=== PATIENT | male | born 1965 | race Caucasian/White ===

== ENCOUNTER 2018-01-11 12:32 | Emergency (ER) | payer MEDICARE, OTHER ==
[2018-01-11 12:40] VITALS: TEMP 98.1
[2018-01-11] MEDS ORDERED: KETOROLAC 30 MG/ML 1 ML VIAL IVP STA (13:21)
[2018-01-11] MEDS ORDERED: ORPHENADRINE 30 MG/ML 2 ML VIAL IVP STA (13:21)
--- NOTE | 2018-01-11 13:30 | ED ---
Back Pain HPI - General Chief Complaint: Back Pain/Injury Stated Complaint: back pain Time Seen by Provider: 01/11/18 12:56 Source: patient, EMS, RN notes reviewed Mode of arrival: EMS Limitations: no limitations - History of Present Illness Initial Comments: This is a 52-year-old male presents emergency Department chief complaint of low back pain. Patient states she's been having increasing pain last couple weeks states today's become more unbearable where he feels that it's hard to ambulate than usual. He states that he has balm he has currently visiting physicians. Patient states that he has to use a cane to walk on a normal day. 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 Patient states that he's had no bowel bladder incontinence or retention. Denies any saddle anesthesia. He does complain of some pain increased on his left leg and right upper thigh region. Patient admits that he's had thoracic and lumbar surgery he states it is occasionally thoracic region cysts removed from his spinal canal approximately 2 years ago. Patient denies any dysuria, nausea, vomiting, abdominal pain. - Related Data Home Medications Medication Instructions Recorded Confirmed Cyclobenzaprine [Flexeril] 10 mg PO BID 07/24/15 01/11/18 Gabapentin 800 mg PO QID 07/24/15 01/11/18 Ibuprofen [Motrin] 800 mg PO TID 07/24/15 01/11/18 Omeprazole [PriLOSEC] 20 mg PO HS 07/24/15 01/11/18 Potassium Chloride [Klor-Con 10] 10 meq PO DAILY 07/24/15 01/11/18 Simvastatin [Zocor] 40 mg PO PC-SUPPER 07/24/15 01/11/18 metFORMIN HCL 1,000 mg PO BID 07/24/15 01/11/18 Aspirin [Adult Low Dose Aspirin EC] 81 mg PO DAILY 07/31/15 01/11/18 Metoprolol Tartrate [Lopressor] 50 mg PO QID 03/18/16 01/11/18 rOPINIRole HCL [Requip] 2 mg PO TID 03/18/16 01/11/18 Albuterol Inhaler [Ventolin Hfa 2 puff INHALATION RT-Q4H PRN 01/11/18 01/11/18 Inhaler] Beclomethasone Dipropionate [Qvar 2 puff INHALATION RT-BID 01/11/18 01/11/18 80 mcg] Cholecalciferol [Vitamin D3] 5,000 unit PO DAILY 01/11/18 01/11/18 Desloratadine/Pseudoephedrine 1 tab PO BID 01/11/18 01/11/18 [Clarinex-D 12 Hour Tablet] Lisinopril [Zestril] 5 mg PO DAILY 01/11/18 01/11/18 Pregabalin [Lyrica] 200 mg PO TID 01/11/18 01/11/18 sitaGLIPtin [Januvia] 100 mg PO DAILY 01/11/18 01/11/18 Previous Rx's Medication Instructions Recorded Hydrocodone/Acetaminophen [[place] 1 tab PO Q6HR PRN #12 tab 01/11/18 5-325] Allergies Allergy/AdvReac Type Severity Reaction Status Date / Time No Known Allergies Allergy Verified 01/11/18 13:10 Review of Systems ROS Statement: Those systems with pertinent positive or pertinent negative responses have been documented in the HPI. ROS Other: All systems not noted in ROS Statement are negative. Past Medical History Past Medical History: Coronary Artery Disease (CAD), COPD, Diabetes Mellitus, GERD/Reflux, Hyperlipidemia, Hypertension, Myocardial Infarction (PR), Osteoarthritis (OA), Seizure Disorder, Sleep Apnea/CPAP/BIPAP Additional Past Medical History / Comment(s): LAST SEIZURE 2009lumbar radiculopathy neuropathy Last Myocardial Infarction Date:: 10/22/10 History of Any Multi-Drug Resistant Organisms: None Reported Past Surgical History: Back Surgery, Cholecystectomy, Heart Catheterization With Stent Additional Past Surgical History / Comment(s): LAMINECTOMY ,fusion,spinal stimulator LEFT SHOULDER sx, 07-31-15 revison thoracic laminectomy t10-t11/ removal of neuro stimulator and wires removed Past Anesthesia/Blood Transfusion Reactions: No Reported Reaction Date of Last Stent Placement:: 10/22/10 Past Psychological History: Depression Smoking Status: Current every day smoker Past Alcohol Use History: None Reported, Abuse Past Drug Use History: Marijuana - Past Family History Brother(s) Family Medical History: Deep Vein Thrombosis (DVT) Mother Family Medical History: Osteoarthritis (OA) Additional Family Medical History / Comment(s): psoriases, Father Family Medical History: Coronary Artery Disease (CAD) Additional Family Medical History / Comment(s): heart problems- quad bypass, General Exam Limitations: no limitations General appearance: alert, in no apparent distress Head exam: Present: atraumatic, normocephalic, normal inspection Eye exam: Present: normal appearance, PERRL, EOMI. Absent: scleral icterus, conjunctival injection, periorbital swelling Respiratory exam: Present: normal lung sounds bilaterally. Absent: respiratory distress, wheezes, rales, rhonchi, stridor Cardiovascular Exam: Present: regular rate, normal rhythm, normal heart sounds. Absent: systolic murmur, diastolic murmur, rubs, gallop, clicks GI/Abdominal exam: Present: soft, normal bowel sounds. Absent: distended, tenderness, guarding, rebound, rigid Extremities exam: Present: other (Lower extremity neurovascular intact there is no calf tenderness patient has equal strength to lower extremities) Back exam: Present: tenderness (Tenderness to lumbar region), paraspinal tenderness, vertebral tenderness, other. Absent: normal inspection (There are old surgical scars noted), full ROM (Slight decreased range of motion secondary to pain), CVA tenderness (R), CVA tenderness (L) Neurological exam: Present: reflexes normal. Absent: motor sensory deficit Skin exam: Present: warm, dry, intact, normal color. Absent: rash Course Vital Signs 01/11/18 12:34 Temperature 98.1 F Pulse Rate 84 Respiratory 16 Rate Blood Pressure 155/97 O2 Sat by Pulse 98 Oximetry Medical Decision Making - Medical Decision Making 52-year-old male present emergency from for back pain. He has chronic back pain states he has not seen a surgeon in over 2 years since his surgery. He is had no red flag symptoms including bowel or bladder incontinence or retention. Patient had complete workup including lab work and CT which shows no significant changes compared to prior MRI. Patient was given pain medications and return. He will be given pain meds for 3 days and he is advised that he needs a follow-up. Patient is requesting prescription for walker to help him ambulate. - Lab Data Result diagrams: 01/11/18 14:25 01/11/18 14:25 Lab Results 01/11/18 01/11/18 01/11/18 Range/Units 14:25 14:25 14:25 WBC 10.0 (3.8-10.6) k/uL RBC 4.75 (4.30-5.90) m/uL Hgb 14.8 (13.0-17.5) gm/dL Hct 40.6 (39.0-53.0) % MCV 85.6 (80.0-100.0) fL MCH 31.1 (25.0-35.0) pg MCHC 36.4 (31.0-37.0) g/dL RDW 13.0 (11.5-15.5) % Plt Count 192 (150-450) k/uL Neutrophils % 54 % Lymphocytes % 38 % Monocytes % 5 % Eosinophils % 1 % Basophils % 0 % Neutrophils # 5.4 (1.3-7.7) k/uL Lymphocytes # 3.8 (1.0-4.8) k/uL Monocytes # 0.5 (0-1.0) k/uL Eosinophils # 0.1 (0-0.7) k/uL Basophils # 0.0 (0-0.2) k/uL PT 9.8 (9.0-12.0) sec INR 1.0 (<1.2) APTT 22.7 (22.0-30.0) sec Sodium 143 (137-145) mmol/L Potassium 4.5 (3.5-5.1) mmol/L Chloride 105 (98-107) mmol/L Carbon Dioxide 24 (22-30) mmol/L Anion Gap 14 mmol/L BUN 12 (9-20) mg/dL Creatinine 0.70 (0.66-1.25) mg/dL Est GFR (CKD-EPI)AfAm >90 (>60 ml/min/1.73 sqM) Est GFR (CKD-EPI)NonAf >90 (>60 ml/min/1.73 sqM) Glucose 86 (74-99) mg/dL Calcium 10.0 (8.4-10.2) mg/dL Total Bilirubin 0.5 (0.2-1.3) mg/dL AST 23 (17-59) U/L ALT 31 (21-72) U/L Alkaline Phosphatase 56 (38-126) U/L Total Protein 6.5 (6.3-8.2) g/dL Albumin 4.2 (3.5-5.0) g/dL Disposition Clinical Impression: Acute exacerbation of chronic low back pain Disposition: HOME SELF-CARE Condition: Stable Instructions: Acute Low Back Pain (ED) Additional Instructions: Please return to the Emergency Department if symptoms worsen or any other concerns. Prescriptions: Hydrocodone/Acetaminophen [[place] 5-325] 1 tab PO Q6HR PRN #12 tab PRN Reason: Pain Is patient prescribed a controlled substance at d/c from ED?: Yes If prescribed controlled substance>3 days was MAPS reviewed?: Yes When asked, does pt state using other controlled substances?: Yes Referrals: Naman Ayala MD [Primary Care Provider] - 1-2 days Time of Disposition: 16:02
[2018-01-11] MEDS ORDERED: HYDROcodone/APAP 5-325MG 1 EACH TAB PO STA (13:53)
[2018-01-11 14:37] LABS: Basophils % (A) 0 %; Eosinophils # (A) 0.1 k/uL (0-0.7); Eosinophils % (A) 1 %; HCT 40.6 % (39.0-53.0); HGB 14.8 gm/dL (13.0-17.5); Lymphocytes # (A) 3.8 k/uL (1.0-4.8); Lymphocytes % (A) 38 %; MCH 31.1 pg (25.0-35.0); MCHC 36.4 g/dL (31.0-37.0); MCV 85.6 fL (80.0-100.0); Mean Platelet Volume 8.1; Monocytes # (A) 0.5 k/uL (0-1.0); Monocytes % (A) 5 %; Neutrophils # (A) 5.4 k/uL (1.3-7.7); Neutrophils % (A) 54 %; Platelet Count 192 k/uL (150-450); RBC 4.75 m/uL (4.30-5.90)
[2018-01-11 14:44] LABS: Partial Thromboplastin Time 22.7 sec (22.0-30.0); Prothrombin Time 9.8 sec (9.0-12.0)
[2018-01-11 14:46] LABS: ALT 31 U/L (21-72); AST 23 U/L (17-59); Albumin 4.2 g/dL (3.5-5.0); Alkaline Phosphatase 56 U/L (38-126); Anion Gap 14 mmol/L; Blood Urea Nitrogen 12 mg/dL (9-20); Carbon Dioxide 24 mmol/L (22-30); Chloride 105 mmol/L (98-107); Glucose 86 mg/dL (74-99); Potassium 4.5 mmol/L (3.5-5.1); Sodium 143 mmol/L (137-145); Total Bilirubin 0.5 mg/dL (0.2-1.3); Total Protein 6.5 g/dL (6.3-8.2)
--- NOTE | 2018-01-11 15:52 | CT ---
EXAMINATION TYPE: CT lumbar spine wo con DATE OF EXAM: 01/11/2018 3:32 PM COMPARISON: MRI lumbar spine September 16, 2015 HISTORY: Back pain CT DLP: 2081 mGycm Automated exposure control for dose reduction was used. 5 lumbar-type vertebra are redemonstrated. There is persistent posterior interpedicular rods and scre ws at L5-S1 level. There is persistent grade 1 anterolisthesis of L5 on S1. There is persistent advan katelynn disc space narrowing at this level. There is vacuum disc phenomenon with mild disc space narrowin g L3-L4 level. No large posterior disc herniations are present. There is mild to moderate multilevel anterior spurring. Review of axial images shows moderate facet arthropathy and broad disc bulge contributing to spinal c anal stenosis L3-L4 level on axial image 49 not significantly changed from prior MRI. Axial images at L4-L5 level show advanced facet degenerative changes bilaterally. There is partial vi sualization of surgical change. Spinal canal is preserved. Bilateral neural foramina are likely mild to moderately narrowed. Axial images at L5-S1 level show spondylolisthesis and surgical change. There is bilateral neural for aminal narrowing redemonstrated. There is moderate calcified plaque in the aorta extending into branch vessels. There is additional cu rvilinear calcification overlying left iliopsoas muscle of uncertain etiology perhaps dystrophic calc ification and/or phleboliths. IMPRESSION: Postsurgical change L5-S1 level with stable spondylolisthesis. No acute fracture or dislo cation is seen. No significant change from prior MRI.
[2018-01-11 16:04] VITALS: RESP 18
[2018-01-11 16:32] VITALS: BP 113/75; PULSE 79
== END 2018-01-11 16:30 | disposition home or self-care (01) ==
LOC: EC 12:32
DX: G89.29 Other chronic pain (principal); M54.5 Low back pain; M79.605 Pain in left leg; M79.651 Pain in right thigh; E11.40 Type 2 diabetes mellitus with diabetic neuropathy, unspecified; E78.5 Hyperlipidemia, unspecified; I10 Essential (primary) hypertension; I25.10 Atherosclerotic heart disease of native coronary artery without angina pectoris; J44.9 Chronic obstructive pulmonary disease, unspecified; G40.909 Epilepsy, unspecified, not intractable, without status epilepticus; G47.30 Sleep apnea, unspecified; K21.9 Gastro-esophageal reflux disease without esophagitis; M19.90 Unspecified osteoarthritis, unspecified site; F17.200 Nicotine dependence, unspecified, uncomplicated; Z79.1 Long term (current) use of non-steroidal anti-inflammatories (NSAID); Z79.51 Long term (current) use of inhaled steroids; Z79.82 Long term (current) use of aspirin; Z79.84 Long term (current) use of oral hypoglycemic drugs; Z79.899 Other long term (current) drug therapy; Z99.89 Dependence on other enabling machines and devices; Z98.1 Arthrodesis status; Z82.61 Family history of arthritis
CPT/HCPCS: 36415; 80053; 85025; 85610; 85730; 72131; 99284; 96374; 96375; J2360; J1885

== ENCOUNTER → 2018-02-17 | Outpatient (CLI) | payer MEDICARE, OTHER ==
--- NOTE | 2018-02-17 23:12 | MR ---
EXAMINATION TYPE: MR lumbar spine wo con DATE OF EXAM: 02/17/2018 COMPARISON: 09/16/2015 HISTORY: Low back pain, stenosis TECHNIQUE: Multiplanar, multisequence images of the lumbar spine were acquired. There is metal artifact from posterior fusion surgery at L5-S1. There is 10 mm anterior subluxation o f L5 in relation to S1. There is narrowing of L5-S1 disc space and ankylotic change. The other disc s paces show mild narrowing. There is no compression fracture. There is no lumbar paraspinal mass. I se e no focal bone destruction. There is small posterior disc bulging at L3-4 without significant imping ement on the spinal canal. IMPRESSION: Disc bulging at L3-4. No significant spinal stenosis. First-degree L5-S1 spondylolisthesis. There is clearing of an apparent synovial cyst on the left sided L3-4 facet joint compared to old exam.
== END ==
LOC: RADMRIMAIN 21:21
PROVIDERS: ATTEND Orthopaedic Surgery
DX: M51.26 Other intervertebral disc displacement, lumbar region (principal); M43.16 Spondylolisthesis, lumbar region; M71.38 Other bursal cyst, other site
CPT/HCPCS: 72148

== ENCOUNTER 2018-03-18 18:06 | Observation (INO) | payer MEDICARE ==
[2018-03-18] MEDS ORDERED: SODIUM CHLORIDE 0.9% 1,000 ML IV STA (18:49)
--- NOTE | 2018-03-18 18:53 | ED ---
Weakness HPI - General Chief complaint: Weakness Stated complaint: Weakness Time Seen by Provider: 03/18/18 18:32 Source: patient, RN notes reviewed Mode of arrival: wheelchair Limitations: no limitations - History of Present Illness Initial comments: This is a 52-year-old male history of heart disease with a stent also history of back pain with a pending effusion who states he was seen by his venetian blind washer the last day or so with a decrease in blood pressure medication but states today he is having shortness of breath especially with exertion sweats generalized weakness and some nausea. This began upon waking this morning. No overt chest pain he does state he does have a history of a pulmonary embolism he is currently not on blood thinners. He states he normally has a sweat this much. No diarrhea no other symptoms reported no other modifying factors at this time MD Complaint: generalized weakness - Related Data Home Medications Medication Instructions Recorded Confirmed Cyclobenzaprine [Flexeril] 10 mg PO BID 07/24/15 03/18/18 Gabapentin 800 mg PO QID 07/24/15 03/18/18 Ibuprofen [Motrin] 800 mg PO TID 07/24/15 03/18/18 Omeprazole [PriLOSEC] 20 mg PO HS 07/24/15 03/18/18 Potassium Chloride [Klor-Con 10] 10 meq PO DAILY 07/24/15 03/18/18 Simvastatin [Zocor] 40 mg PO PC-SUPPER 07/24/15 03/18/18 metFORMIN HCL 1,000 mg PO BID 07/24/15 03/18/18 Aspirin [Adult Low Dose Aspirin EC] 81 mg PO DAILY 07/31/15 03/18/18 Metoprolol Tartrate [Lopressor] 50 mg PO QID 03/18/16 03/18/18 rOPINIRole HCL [Requip] 2 mg PO TID 03/18/16 03/18/18 Albuterol Inhaler [Ventolin Hfa 2 puff INHALATION RT-Q4H PRN 01/11/18 03/18/18 Inhaler] Beclomethasone Dipropionate [Qvar 2 puff INHALATION RT-BID 01/11/18 03/18/18 80 mcg] Cholecalciferol [Vitamin D3] 5,000 unit PO DAILY 01/11/18 03/18/18 Desloratadine/Pseudoephedrine 1 tab PO BID 01/11/18 03/18/18 [Clarinex-D 12 Hour Tablet] Lisinopril [Zestril] 5 mg PO DAILY 01/11/18 03/18/18 Pregabalin [Lyrica] 200 mg PO TID 01/11/18 03/18/18 sitaGLIPtin [Januvia] 100 mg PO DAILY 01/11/18 03/18/18 Previous Rx's Medication Instructions Recorded Hydrocodone/Acetaminophen [[place] 1 tab PO Q6HR PRN #12 tab 01/11/18 5-325] Allergies Allergy/AdvReac Type Severity Reaction Status Date / Time No Known Allergies Allergy Verified 03/18/18 18:52 Review of Systems ROS Statement: Those systems with pertinent positive or pertinent negative responses have been documented in the HPI. ROS Other: All systems not noted in ROS Statement are negative. Past Medical History Past Medical History: Coronary Artery Disease (CAD), COPD, Diabetes Mellitus, GERD/Reflux, Hyperlipidemia, Hypertension, Myocardial Infarction (HI), Osteoarthritis (OA), Seizure Disorder, Sleep Apnea/CPAP/BIPAP Additional Past Medical History / Comment(s): LAST SEIZURE 2009lumbar radiculopathy neuropathy Last Myocardial Infarction Date:: 10/22/10 History of Any Multi-Drug Resistant Organisms: None Reported Past Surgical History: Back Surgery, Cholecystectomy, Heart Catheterization With Stent Additional Past Surgical History / Comment(s): LAMINECTOMY ,fusion,spinal stimulator LEFT SHOULDER sx, 07-31-15 revison thoracic laminectomy t10-t11/ removal of neuro stimulator and wires removed Past Anesthesia/Blood Transfusion Reactions: No Reported Reaction Date of Last Stent Placement:: 10/22/10 Past Psychological History: Depression Smoking Status: Current every day smoker Past Alcohol Use History: None Reported Past Drug Use History: Marijuana - Past Family History Brother(s) Family Medical History: Deep Vein Thrombosis (DVT) Mother Family Medical History: Osteoarthritis (OA) Additional Family Medical History / Comment(s): psoriases, Father Family Medical History: Coronary Artery Disease (CAD) Additional Family Medical History / Comment(s): heart problems- quad bypass, General Exam - General Exam Comments Initial Comments: This a well-developed well-nourished awake alert oriented times 3 male Limitations: no limitations General appearance: alert, in no apparent distress Head exam: Present: atraumatic, normocephalic, normal inspection Eye exam: Present: normal appearance, PERRL, EOMI. Absent: scleral icterus, conjunctival injection, periorbital swelling ENT exam: Present: normal exam, mucous membranes moist Neck exam: Present: normal inspection. Absent: tenderness, meningismus, lymphadenopathy Respiratory exam: Present: decreased breath sounds. Absent: respiratory distress, wheezes, rales, rhonchi, stridor Cardiovascular Exam: Present: normal rhythm, tachycardia, normal heart sounds. Absent: systolic murmur, diastolic murmur, rubs, gallop, clicks GI/Abdominal exam: Present: soft, normal bowel sounds. Absent: distended, tenderness, guarding, rebound, rigid Extremities exam: Present: normal inspection, full ROM, normal capillary refill. Absent: tenderness, pedal edema, joint swelling, calf tenderness Back exam: Present: normal inspection Neurological exam: Present: alert, oriented X3, CN II-XII intact Psychiatric exam: Present: normal affect, normal mood Skin exam: Present: warm, dry, intact, normal color. Absent: rash Course Vital Signs 03/18/18 03/18/18 03/18/18 18:23 18:38 19:55 Temperature 98.1 F Pulse Rate 108 H 102 H 86 Respiratory 18 18 18 Rate Blood Pressure 124/84 151/77 106/61 O2 Sat by Pulse 98 100 99 Oximetry EKG Findings - EKG Results: EKG: interpreted by BEN, sinus rhythm (Sinus tachycardia rate 109 PA interval 146 years duration 86 QT since QTC of 314/422 nonspecific anterior findings) Medical Decision Making - Medical Decision Making Did discuss findings the patient he will be admitted for further evaluation I did discuss the case with robe who is covering for Dr. nEnis. X-ray results were at that time not available patient be placed on IV antibiotics and IV hydration. At this time radiology evaluation is not indicated. - Lab Data Result diagrams: 03/18/18 18:56 03/18/18 18:56 Lab Results 03/18/18 03/18/18 03/18/18 Range/Units 18:50 18:56 18:56 WBC 10.6 (3.8-10.6) k/uL RBC 4.84 (4.30-5.90) m/uL Hgb 14.3 (13.0-17.5) gm/dL Hct 41.1 (39.0-53.0) % MCV 84.9 (80.0-100.0) fL MCH 29.6 (25.0-35.0) pg MCHC 34.9 (31.0-37.0) g/dL RDW 13.1 (11.5-15.5) % Plt Count 222 (150-450) k/uL Neutrophils % 60 % Lymphocytes % 32 % Monocytes % 6 % Eosinophils % 1 % Basophils % 0 % Neutrophils # 6.4 (1.3-7.7) k/uL Lymphocytes # 3.3 (1.0-4.8) k/uL Monocytes # 0.6 (0-1.0) k/uL Eosinophils # 0.1 (0-0.7) k/uL Basophils # 0.0 (0-0.2) k/uL PT (9.0-12.0) sec INR (<1.2) APTT (22.0-30.0) sec D-Dimer (<0.60) mg/L FEU Sodium (137-145) mmol/L Potassium (3.5-5.1) mmol/L Chloride (98-107) mmol/L Carbon Dioxide (22-30) mmol/L Anion Gap mmol/L BUN (9-20) mg/dL Creatinine (0.66-1.25) mg/dL Est GFR (CKD-EPI)AfAm (>60 ml/min/1.73 sqM) Est GFR (CKD-EPI)NonAf (>60 ml/min/1.73 sqM) Glucose (74-99) mg/dL Plasma Lactic Acid Francois (0.7-2.0) mmol/L Calcium (8.4-10.2) mg/dL Magnesium (1.6-2.3) mg/dL Total Bilirubin (0.2-1.3) mg/dL AST (17-59) U/L ALT (21-72) U/L Alkaline Phosphatase (38-126) U/L Total Creatine Kinase 144 (55-170) U/L CK-MB (CK-2) 1.7 (0.0-2.4) ng/mL CK-MB (CK-2) Rel Index 1.2 Troponin I <0.012 (0.000-0.034) ng/mL NT-Pro-B Natriuret Pep pg/mL Total Protein (6.3-8.2) g/dL Albumin (3.5-5.0) g/dL Urine Color Yellow Urine Appearance Clear (Clear) Urine pH 5.5 (5.0-8.0) Ur Specific [place] 1.013 (1.001-1.035) Urine Protein Negative (Negative) Urine Glucose (UA) Negative (Negative) Urine Ketones Negative (Negative) Urine Blood Negative (Negative) Urine Nitrite Negative (Negative) Urine Bilirubin Negative (Negative) Urine Urobilinogen <2.0 (<2.0) mg/dL Ur Leukocyte Esterase Negative (Negative) 03/18/18 03/18/18 03/18/18 Range/Units 18:56 18:56 18:56 WBC (3.8-10.6) k/uL RBC (4.30-5.90) m/uL Hgb (13.0-17.5) gm/dL Hct (39.0-53.0) % MCV (80.0-100.0) fL MCH (25.0-35.0) pg MCHC (31.0-37.0) g/dL RDW (11.5-15.5) % Plt Count (150-450) k/uL Neutrophils % % Lymphocytes % % Monocytes % % Eosinophils % % Basophils % % Neutrophils # (1.3-7.7) k/uL Lymphocytes # (1.0-4.8) k/uL Monocytes # (0-1.0) k/uL Eosinophils # (0-0.7) k/uL Basophils # (0-0.2) k/uL PT 9.4 (9.0-12.0) sec INR 0.9 (<1.2) APTT 22.8 (22.0-30.0) sec D-Dimer 0.56 (<0.60) mg/L FEU Sodium 141 (137-145) mmol/L Potassium 4.5 (3.5-5.1) mmol/L Chloride 104 (98-107) mmol/L Carbon Dioxide 25 (22-30) mmol/L Anion Gap 12 mmol/L BUN 8 L (9-20) mg/dL Creatinine 0.60 L (0.66-1.25) mg/dL Est GFR (CKD-EPI)AfAm >90 (>60 ml/min/1.73 sqM) Est GFR (CKD-EPI)NonAf >90 (>60 ml/min/1.73 sqM) Glucose 114 H (74-99) mg/dL Plasma Lactic Acid Francois 1.8 (0.7-2.0) mmol/L Calcium 9.7 (8.4-10.2) mg/dL Magnesium 1.6 (1.6-2.3) mg/dL Total Bilirubin 0.3 (0.2-1.3) mg/dL AST 26 (17-59) U/L ALT 37 (21-72) U/L Alkaline Phosphatase 48 (38-126) U/L Total Creatine Kinase (55-170) U/L CK-MB (CK-2) (0.0-2.4) ng/mL CK-MB (CK-2) Rel Index Troponin I (0.000-0.034) ng/mL NT-Pro-B Natriuret Pep pg/mL Total Protein 7.1 (6.3-8.2) g/dL Albumin 4.6 (3.5-5.0) g/dL Urine Color Urine Appearance (Clear) Urine pH (5.0-8.0) Ur Specific Carson (1.001-1.035) Urine Protein (Negative) Urine Glucose (UA) (Negative) Urine Ketones (Negative) Urine Blood (Negative) Urine Nitrite (Negative) Urine Bilirubin (Negative) Urine Urobilinogen (<2.0) mg/dL Ur Leukocyte Esterase (Negative) 03/18/18 Range/Units 18:56 WBC (3.8-10.6) k/uL RBC (4.30-5.90) m/uL Hgb (13.0-17.5) gm/dL Hct (39.0-53.0) % MCV (80.0-100.0) fL MCH (25.0-35.0) pg MCHC (31.0-37.0) g/dL RDW (11.5-15.5) % Plt Count (150-450) k/uL Neutrophils % % Lymphocytes % % Monocytes % % Eosinophils % % Basophils % % Neutrophils # (1.3-7.7) k/uL Lymphocytes # (1.0-4.8) k/uL Monocytes # (0-1.0) k/uL Eosinophils # (0-0.7) k/uL Basophils # (0-0.2) k/uL PT (9.0-12.0) sec INR (<1.2) APTT (22.0-30.0) sec D-Dimer (<0.60) mg/L FEU Sodium (137-145) mmol/L Potassium (3.5-5.1) mmol/L Chloride (98-107) mmol/L Carbon Dioxide (22-30) mmol/L Anion Gap mmol/L BUN (9-20) mg/dL Creatinine (0.66-1.25) mg/dL Est GFR (CKD-EPI)AfAm (>60 ml/min/1.73 sqM) Est GFR (CKD-EPI)NonAf (>60 ml/min/1.73 sqM) Glucose (74-99) mg/dL Plasma Lactic Acid Francois (0.7-2.0) mmol/L Calcium (8.4-10.2) mg/dL Magnesium (1.6-2.3) mg/dL Total Bilirubin (0.2-1.3) mg/dL AST (17-59) U/L ALT (21-72) U/L Alkaline Phosphatase (38-126) U/L Total Creatine Kinase (55-170) U/L CK-MB (CK-2) (0.0-2.4) ng/mL CK-MB (CK-2) Rel Index Troponin I (0.000-0.034) ng/mL NT-Pro-B Natriuret Pep 14 pg/mL Total Protein (6.3-8.2) g/dL Albumin (3.5-5.0) g/dL Urine Color Urine Appearance (Clear) Urine pH (5.0-8.0) Ur Specific [place] (1.001-1.035) Urine Protein (Negative) Urine Glucose (UA) (Negative) Urine Ketones (Negative) Urine Blood (Negative) Urine Nitrite (Negative) Urine Bilirubin (Negative) Urine Urobilinogen (<2.0) mg/dL Ur Leukocyte Esterase (Negative) - Radiology Data Radiology results: report reviewed (Status ON evidence of a new right middle lobe infiltrate compared to normal exam.), image reviewed Disposition Clinical Impression: Pneumonia, Dehydration, Weakness Disposition: ADMITTED IP TO THIS HOSP Condition: Stable Referrals: Naman Ayala MD [Primary Care Provider] - 1-2 days
[2018-03-18 19:07] LABS: Basophils % (A) 0 %; Eosinophils # (A) 0.1 k/uL (0-0.7); Eosinophils % (A) 1 %; HCT 41.1 % (39.0-53.0); HGB 14.3 gm/dL (13.0-17.5); Lymphocytes # (A) 3.3 k/uL (1.0-4.8); Lymphocytes % (A) 32 %; MCH 29.6 pg (25.0-35.0); MCHC 34.9 g/dL (31.0-37.0); MCV 84.9 fL (80.0-100.0); Mean Platelet Volume 7.2; Monocytes # (A) 0.6 k/uL (0-1.0); Monocytes % (A) 6 %; Neutrophils # (A) 6.4 k/uL (1.3-7.7); Neutrophils % (A) 60 %; Platelet Count 222 k/uL (150-450); RBC 4.84 m/uL (4.30-5.90); RDW 13.1 % (11.5-15.5); WBC 10.6 k/uL (3.8-10.6)
[2018-03-18 19:16] LABS: ALT 37 U/L (21-72); AST 26 U/L (17-59); Albumin 4.6 g/dL (3.5-5.0); Alkaline Phosphatase 48 U/L (38-126); Anion Gap 12 mmol/L; Blood Urea Nitrogen 8 mg/dL (9-20); Calcium 9.7 mg/dL (8.4-10.2); Carbon Dioxide 25 mmol/L (22-30); Chloride 104 mmol/L (98-107); Glucose 114 mg/dL (74-99); Magnesium 1.6 mg/dL (1.6-2.3); Potassium 4.5 mmol/L (3.5-5.1); Sodium 141 mmol/L (137-145); Total Bilirubin 0.3 mg/dL (0.2-1.3); Total Protein 7.1 g/dL (6.3-8.2)
[2018-03-18 19:24] LABS: Appearance,Urine Clear (Clear); Bilirubin,Urine Negative (Negative); Blood,Urine Negative (Negative); Color,Urine Yellow; Glucose,Urine (UA) Negative (Negative); Ketones,Urine Negative (Negative); Leukocyte Esterase,Urine Negative (Negative); Nitrite,Urine Negative (Negative); PH, Urine 5.5 (5.0-8.0); Protein,Urine Negative (Negative); Specific Gravity,Urine 1.013 (1.001-1.035); Urobilinogen,Urine <2.0 mg/dL (<2.0)
[2018-03-18 19:32] LABS: Creatine Kinase 144 U/L (55-170); D-Dimer 0.56 mg/L FEU (<0.60); INR 0.9 (<1.2); Partial Thromboplastin Time 22.8 sec (22.0-30.0); Prothrombin Time 9.4 sec (9.0-12.0)
--- NOTE | 2018-03-18 19:34 | XR ---
EXAMINATION TYPE: XR chest 2V DATE OF EXAM: 03/18/2018 COMPARISON: 07/03/2015 HISTORY: Weakness TECHNIQUE: Frontal and lateral views of the chest are obtained. FINDINGS: There is some mild infiltrate over the right lower lung field that is probably in the midd le lobe. The other lung hernandes are clear. Heart and mediastinum are normal. There is no pleural effus ion. Bony thorax is intact. IMPRESSION: New mild right middle lobe pneumonia compared to old exam.
[2018-03-18 19:44] LABS: Creatine Kinase MB 1.7 ng/mL (0.0-2.4); Troponin I <0.012 ng/mL (0.000-0.034)
[2018-03-18] MEDS ORDERED: KETOROLAC 30 MG/ML 1 ML VIAL IVP STA (20:29)
[2018-03-18] MEDS ORDERED: cefTRIAXone IN SWFI 1,000 MG/10 ML SYRINGE IVP STA (21:17)
[2018-03-18] MEDS ORDERED: SODIUM CHLORIDE 0.9% 2,000 ML IV ONE (21:18)
[2018-03-18] MEDS ORDERED: PNEUMONIA PROTOCOL UTILIZED 1 EACH MISC PO PRN (21:23)
[2018-03-18] MEDS ORDERED: AZITHROMYCIN 500 MG in SODIUM CHLORIDE 0.9% 250 ML IVPB STA (21:23)
[2018-03-18] MEDS ORDERED: IPRATROPIUM-ALBUTEROL 3 ML NEB INHALATION PRN (21:32)
[2018-03-18] MEDS ORDERED: AZITHROMYCIN 500 MG in DEXTROSE 5% IN WATER 250 ML IVPB STA ×2 (21:38)
[2018-03-18] MEDS: HYDROcodone/APAP 5-325MG 1 EACH TAB PO PRN (22:51)
[2018-03-18] MEDS: GABAPENTIN 400 MG CAP PO SCH (23:37)
[2018-03-18] MEDS: IBUPROFEN 800 MG TAB PO SCH (23:38)
[2018-03-18] MEDS: PREGABALIN 100 MG CAP PO SCH (23:38)
[2018-03-18] MEDS: SODIUM CHLORIDE 0.9% 1,000 ML IV SCH (23:38)
[2018-03-18] MEDS: METOPROLOL TARTRATE 50 MG TAB PO SCH (23:40)
[2018-03-18 23:50] LABS: Glucose,Whole Blood 137 mg/dL (75-99)
[2018-03-19] MEDS ORDERED: IPRATROPIUM-ALBUTEROL 3 ML NEB INHALATION SCH
[2018-03-19] MEDS: HYDROcodone/APAP 5-325MG 1 EACH TAB PO PRN ×3 (04:58→16:16)
[2018-03-19 07:29] LABS: Glucose,Whole Blood 116 mg/dL (75-99)
[2018-03-19] MEDS: INSULIN ASPART 100 UNIT/ML 1 ML 10 ML VIAL SQ SCH ×3 (07:46→17:53)
[2018-03-19] MEDS ORDERED: BUDESONIDE 1 MG/2 ML NEBU INHALATION SCH (08:00)
[2018-03-19] MEDS: PREGABALIN 100 MG CAP PO SCH ×2 (08:37→16:16)
[2018-03-19] MEDS: metFORMIN 500 MG TAB PO SCH ×2 (08:38→18:12)
[2018-03-19] MEDS: METOPROLOL TARTRATE 50 MG TAB PO SCH (08:38)
[2018-03-19] MEDS: GABAPENTIN 400 MG CAP PO SCH ×3 (08:38→18:11)
[2018-03-19] MEDS: IBUPROFEN 800 MG TAB PO SCH (08:45)
[2018-03-19] MEDS ORDERED: LINAGLIPTIN 5 MG TABLET PO SCH (09:00)
[2018-03-19] MEDS ORDERED: POTASSIUM CHLORIDE ER 10 MEQ TAB.ER.PRT PO SCH (09:00)
[2018-03-19] MEDS ORDERED: PSEUDOEPHEDRINE 12HR 120 MG TABLET.ER PO SCH (09:00)
[2018-03-19] MEDS ORDERED: AZITHROMYCIN 500 MG TAB PO SCH (09:00)
[2018-03-19] MEDS ORDERED: cefTRIAXone IN SWFI 1,000 MG/10 ML SYRINGE IVP SCH (09:00)
[2018-03-19] MEDS ORDERED: CYCLOBENZAPRINE 10 MG TAB PO SCH (09:00)
[2018-03-19] MEDS ORDERED: LORATADINE 10 MG TAB PO SCH (09:00)
[2018-03-19] MEDS ORDERED: LISINOPRIL 5 MG TAB PO SCH (09:00)
[2018-03-19] MEDS ORDERED: CHOLECALCIFEROL 1,000 UNIT TAB PO SCH (09:00)
[2018-03-19] MEDS ORDERED: ASPIRIN 81 MG PO SCH (09:00)
[2018-03-19] MEDS: SODIUM CHLORIDE 0.9% 1,000 ML IV SCH (10:35)
[2018-03-19] MEDS ORDERED: METOPROLOL TARTRATE 50 MG TAB PO STA (12:08)
[2018-03-19 12:17] LABS: Glucose,Whole Blood 111 mg/dL (75-99)
[2018-03-19 15:06] VITALS: BP 95/55; PULSE 73; RESP 18; TEMP 96.6
--- NOTE | 2018-03-19 15:59 | P.HPIM ---
History of Present Illness 52-year-old gentleman with previous history of coronary artery disease came in with compensative generalized tiredness weakness found to be in the sinus tach cardia patient had is morbidly obese pleasant gentleman with multiple back surgeries in the past. Patient was in severe pain when he came in may Have contributed to his tachycardia. Patient was on 100 twice a day of metoprolol which was decreased to 100 in the morning and 50 the evening of metoprolol by his orientation and mobility instructor as he was complaining of not feeling well at the time which is related to his recent and due to bradycardia although at this time patient is tachycardic I'm unsure of his etiology of generalized fatigue. Although beta blockers can cause of his fatigue I believe in history and its opposite tachycardia is contributing to his fatigue I'll obtain a TSH level as he is feeling better patient will be discharged on 100 twice a day of metoprolol. After he was given a second dose of metoprolol his blood pressure went down because of which will discontinue lisinopril. Patient will benefit from lisinopril because of his diabetes mellitus if he has proteinuria but now because of his symptoms I'll hold off on the lisinopril upon discharge. Another issue is patient has an area of redness in the right medial thigh area although this is not indurated doesn't have an abscess. Patient started having some folic colitis and cellulitis patient will be discharged on Keflex for that. And will closely follow with PCP and Dr. RAMESH Sotelo cardiology as an outpatient Review of Systems REVIEW OF SYSTEMS: CONSTITUTIONAL: No fever, no malaise, fatigue improved today HEENT: No recent visual problems or hearing problems. Denied any sore throat. CARDIOVASCULAR: No chest pain, orthopnea, PND, no palpitations, no syncope. PULMONARY: No shortness of breath, no cough, no hemoptysis. GASTROINTESTINAL: No diarrhea, no nausea, no vomiting, no abdominal pain. Normoactive bowel sounds. NEUROLOGICAL: No headaches, no weakness, no numbness. HEMATOLOGICAL: Denies any bleeding or petechiae. GENITOURINARY: Denies any burning micturition, frequency, or urgency. MUSCULOSKELETAL/RHEUMATOLOGICAL: Denies any joint pain, swelling, or any muscle pain. ENDOCRINE: Denies any polyuria or polydipsia. The rest of the 14-point review of systems is negative. Past Medical History Past Medical History: Coronary Artery Disease (CAD), COPD, Diabetes Mellitus, GERD/Reflux, Hyperlipidemia, Hypertension, Myocardial Infarction ([place]), Osteoarthritis (OA), Seizure Disorder, Sleep Apnea/CPAP/BIPAP Additional Past Medical History / Comment(s): LAST SEIZURE 2008; lumbar radiculopathy; neuropathy; no CPAP needed per recent sleep study Last Myocardial Infarction Date:: 10/22/10 History of Any Multi-Drug Resistant Organisms: None Reported Past Surgical History: Back Surgery, Cholecystectomy, Heart Catheterization With Stent Additional Past Surgical History / Comment(s): LAMINECTOMY ,fusion,spinal stimulator LEFT SHOULDER sx, 07-31-15 revison thoracic laminectomy t10-t11/ removal of neuro stimulator and wires removed Past Anesthesia/Blood Transfusion Reactions: No Reported Reaction Date of Last Stent Placement:: 10/22/10 Past Psychological History: Depression Additional Psychological History / Comment(s): PT IS , IS ON DISABILTY, WORKED [employer] AND 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 Smoking Status: Former smoker Past Alcohol Use History: None Reported Additional Past Alcohol Use History / Comment(s): STARTED SMOKING 1977, smokes 1 ppd, smoking cessation booklet given to pt. quit drinking 2009 Past Drug Use History: Marijuana Additional Drug Use History / Comment(s): HAS A MEDICAL CARD DAILY - Past Family History Brother(s) Family Medical History: Deep Vein Thrombosis (DVT) Mother Family Medical History: Osteoarthritis (OA) Additional Family Medical History / Comment(s): psoriases, Parkinsons Father Family Medical History: Coronary Artery Disease (CAD) Additional Family Medical History / Comment(s): heart problems- quad bypass, Medications and Allergies Home Medications Medication Instructions Recorded Confirmed Type Cyclobenzaprine [Flexeril] 10 mg PO BID 07/24/15 03/18/18 History Gabapentin 800 mg PO QID 07/24/15 03/18/18 History Ibuprofen [Motrin] 800 mg PO TID 07/24/15 03/18/18 History Omeprazole [PriLOSEC] 20 mg PO HS 07/24/15 03/18/18 History Potassium Chloride [Klor-Con 10] 10 meq PO DAILY 07/24/15 03/18/18 History Simvastatin [Zocor] 40 mg PO PC-SUPPER 07/24/15 03/18/18 History metFORMIN HCL 1,000 mg PO BID 07/24/15 03/18/18 History Aspirin [Adult Low Dose Aspirin EC] 81 mg PO DAILY 07/31/15 03/18/18 History rOPINIRole HCL [Requip] 2 mg PO TID 03/18/16 03/18/18 History Albuterol Inhaler [Ventolin Hfa 2 puff INHALATION RT-Q4H PRN 01/11/18 03/18/18 History Inhaler] Beclomethasone Dipropionate [Qvar 2 puff INHALATION RT-BID 01/11/18 03/18/18 History 80 mcg] Cholecalciferol [Vitamin D3] 5,000 unit PO DAILY 01/11/18 03/18/18 History Desloratadine/Pseudoephedrine 1 tab PO BID 01/11/18 03/18/18 History [Clarinex-D 12 Hour Tablet] Hydrocodone/Acetaminophen [[place] 1 tab PO Q6HR PRN #12 tab 01/11/18 03/18/18 Rx 5-325] Lisinopril [Zestril] 5 mg PO DAILY 01/11/18 03/18/18 History Pregabalin [Lyrica] 200 mg PO TID 01/11/18 03/18/18 History sitaGLIPtin [Januvia] 100 mg PO DAILY 01/11/18 03/18/18 History Cephalexin [Keflex] 500 mg PO Q8HR #21 cap 03/19/18 Rx Metoprolol Tartrate [Lopressor] 100 mg PO BID #0 03/19/18 03/18/18 Rx Allergies Allergy/AdvReac Type Severity Reaction Status Date / Time No Known Allergies Allergy Verified 03/18/18 18:52 Physical Exam Vitals: Vital Signs Temp Pulse Pulse Resp BP BP Pulse Ox 03/19/18 15:00 96.6 F L 73 18 95/55 96 03/19/18 08:00 75 20 03/19/18 07:24 72 03/19/18 07:05 70 03/19/18 06:05 96.1 F L 75 20 136/66 96 03/18/18 23:40 96.2 F L 84 20 115/62 98 03/18/18 22:30 97.0 F L 03/18/18 21:56 81 18 108/80 99 03/18/18 19:55 86 18 106/61 99 06/29/18 18:38 102 H 18 151/77 100 03/18/18 18:23 98.1 F 108 H 18 124/84 98 Intake and Output 03/19/18 03/19/18 03/19/18 06:59 14:59 22:59 Intake Total 100 Output Total 1000 Balance 100 -1000 Intake: Oral 100 Output: Urine 1000 Other: # Bowel Movements 0 Weight 122.016 kg PHYSICAL EXAMINATION: GENERAL: The patient is alert and oriented x3, not in any acute distress. Morbidly obese HEENT: Pupils are round and equally reacting to light. EOMI. No scleral icterus. No conjunctival pallor. Normocephalic, atraumatic. No pharyngeal erythema. No thyromegaly. CARDIOVASCULAR: S1 and S2 present. No murmurs, rubs, or gallops. PULMONARY: Chest is clear to auscultation, no wheezing or crackles. ABDOMEN: Soft, nontender, nondistended, normoactive bowel sounds. No palpable organomegaly. MUSCULOSKELETAL: No joint swelling or deformity. EXTREMITIES: No cyanosis, clubbing, or pedal edema. NEUROLOGICAL: Gross neurological examination did not reveal any focal deficits. SKIN: Right medial proximal cellulitis as mentioned above Results CBC & Chem 7: 03/18/18 18:56 03/18/18 18:56 Labs: Abnormal Lab Results - Last 24 Hours (Table) 03/18/18 03/18/18 03/19/18 Range/Units 18:56 23:46 07:23 BUN 8 L (9-20) mg/dL Creatinine 0.60 L (0.66-1.25) mg/dL Glucose 114 H (74-99) mg/dL POC Glucose (mg/dL) 137 H 116 H (75-99) mg/dL 03/19/18 Range/Units 12:14 BUN (9-20) mg/dL Creatinine (0.66-1.25) mg/dL Glucose (74-99) mg/dL POC Glucose (mg/dL) 111 H (75-99) mg/dL Thrombosis Risk Factor Assmnt - Choose All That Apply Each Factor Represents 1 point: Age 41-60 years, Obesity (BMI >25) Each Risk Factor Represents 3 Points: Family history of DVT/PE, History of DVT/ PE Thrombosis Risk Factor Assessment Total Risk Factor Score: 8 Thrombosis Risk Factor Assessment Level: High Risk Assessment and Plan Plan: Fatigue: Probably secondary to sinus tachycardia and hypotension. Further management as mentioned in the interval history. TSH within normal limits. -Possible for the colitis and cellulitis of the right medial thigh proximally close to inguinal area. Keflex as mentioned above. -Patient was admitted for possible pneumonia although there was a suspicious infiltrate on the chest x-ray patient clinically does not have cough with sputum production he does have cough but no sputum production patient doesn't have any leukocytosis or fever my suspicion is extremely low that patient has pneumonia. Anyways patient is being discharged on Keflex for his cellulitis. Next and have a morbidly his next and heparin could not disease -Type 2 diabetes mellitus -Chronic low back pain with multiple back surgeries in the past -Hyperlipidemia -Seizure disorder -Sleep apnea and uses CPAP machine and patient is morbidly obese dietary counseling was provided.
[2018-03-19] MEDS ORDERED: IBUPROFEN 400 MG TAB PO SCH (16:00)
[2018-03-19 17:14] LABS: Glucose,Whole Blood 84 mg/dL (75-99)
[2018-03-19] MEDS ORDERED: ATORVASTATIN 20 MG TAB PO SCH (18:30)
[2018-03-19] MEDS ORDERED: PANTOPRAZOLE 40 MG TABLET PO SCH (21:00)
[2018-03-20] MEDS ORDERED: METOPROLOL TARTRATE 50 MG TAB PO SCH (09:00)
--- NOTE | 2018-03-31 11:24 | P.DS ---
Providers Date of admission: 03/18/18 21:23 Expected date of discharge: 04/18/18 Attending physician: Benji nEnis Primary care physician: Naman Ayala MD Hospital Course: Refer to my HPI Patient Condition at Discharge: Stable Plan - Discharge Summary New Discharge Prescriptions: New Cephalexin [Keflex] 500 mg PO Q8HR #21 cap Continue metFORMIN HCL 1,000 mg PO BID Ibuprofen [Motrin] 800 mg PO TID Potassium Chloride [Klor-Con 10] 10 meq PO DAILY Simvastatin [Zocor] 40 mg PO PC-SUPPER Omeprazole [PriLOSEC] 20 mg PO HS Gabapentin 800 mg PO QID Cyclobenzaprine [Flexeril] 10 mg PO BID Aspirin [Adult Low Dose Aspirin EC] 81 mg PO DAILY rOPINIRole HCL [Requip] 2 mg PO TID Albuterol Inhaler [Ventolin Hfa Inhaler] 2 puff INHALATION RT-Q4H PRN PRN Reason: Shortness Of Breath Cholecalciferol [Vitamin D3] 5,000 unit PO DAILY sitaGLIPtin [Januvia] 100 mg PO DAILY Desloratadine/Pseudoephedrine [Clarinex-D 12 Hour Tablet] 1 tab PO BID Beclomethasone Dipropionate [Qvar 80 mcg] 2 puff INHALATION RT-BID Pregabalin [Lyrica] 200 mg PO TID Hydrocodone/Acetaminophen [[place] 5-325] 1 tab PO Q6HR PRN #12 tab PRN Reason: Pain Changed Metoprolol Tartrate [Lopressor] 100 mg PO BID #0 Discharge Medication List Cyclobenzaprine [Flexeril] 10 mg PO BID 07/24/15 [History] Gabapentin 800 mg PO QID 07/24/15 [History] Ibuprofen [Motrin] 800 mg PO TID 07/24/15 [History] Omeprazole [PriLOSEC] 20 mg PO HS 07/24/15 [History] Potassium Chloride [Klor-Con 10] 10 meq PO DAILY 07/24/15 [History] Simvastatin [Zocor] 40 mg PO PC-SUPPER 07/24/15 [History] metFORMIN HCL 1,000 mg PO BID 07/24/15 [History] Aspirin [Adult Low Dose Aspirin EC] 81 mg PO DAILY 07/31/15 [History] rOPINIRole HCL [Requip] 2 mg PO TID 03/18/16 [History] Albuterol Inhaler [Ventolin Hfa Inhaler] 2 puff INHALATION RT-Q4H PRN 01/11/18 [ History] Beclomethasone Dipropionate [Qvar 80 mcg] 2 puff INHALATION RT-BID 01/11/18 [ History] Cholecalciferol [Vitamin D3] 5,000 unit PO DAILY 01/11/18 [History] Desloratadine/Pseudoephedrine [Clarinex-D 12 Hour Tablet] 1 tab PO BID 01/11/18 [History] Hydrocodone/Acetaminophen [[place] 5-325] 1 tab PO Q6HR PRN #12 tab 01/11/18 [Rx] Pregabalin [Lyrica] 200 mg PO TID 01/11/18 [History] sitaGLIPtin [Januvia] 100 mg PO DAILY 01/11/18 [History] Cephalexin [Keflex] 500 mg PO Q8HR #21 cap 03/19/18 [Rx] Metoprolol Tartrate [Lopressor] 100 mg PO BID #0 03/19/18 [Rx] Follow up Appointment(s)/Referral(s): Naman Ayala MD [Primary Care Provider] - 3 Days (please call for appointment, office closed.) Patient Instructions/Handouts: Type 2 Diabetes in Adults (DC), Pneumonia (DC), Tachycardia (GEN) Discharge Disposition: HOME SELF-CARE
== END 2018-03-19 18:33 | disposition home or self-care (01) ==
LOC: EC 18:06 → 4MS4W 21:23
PROVIDERS: ADMIT Internal Medicine; ATTEND Internal Medicine
DX: R53.83 Other fatigue (principal); R53.1 Weakness; L03.90 Cellulitis, unspecified; I95.9 Hypotension, unspecified; R00.0 Tachycardia, unspecified; E86.0 Dehydration; E78.5 Hyperlipidemia, unspecified; M54.5 Low back pain; G89.29 Other chronic pain; G47.30 Sleep apnea, unspecified; G40.909 Epilepsy, unspecified, not intractable, without status epilepticus; E66.01 Morbid (severe) obesity due to excess calories; Z68.36 Body mass index [BMI] 36.0-36.9, adult; Z99.89 Dependence on other enabling machines and devices; R91.8 Other nonspecific abnormal finding of lung field; R11.0 Nausea; Z86.711 Personal history of pulmonary embolism; J44.9 Chronic obstructive pulmonary disease, unspecified; K21.9 Gastro-esophageal reflux disease without esophagitis; I10 Essential (primary) hypertension; I25.2 Old myocardial infarction; M19.90 Unspecified osteoarthritis, unspecified site; E11.40 Type 2 diabetes mellitus with diabetic neuropathy, unspecified; M54.16 Radiculopathy, lumbar region; F32.9 Major depressive disorder, single episode, unspecified; F17.210 Nicotine dependence, cigarettes, uncomplicated; Z90.49 Acquired absence of other specified parts of digestive tract; Z95.5 Presence of coronary angioplasty implant and graft; Z98.1 Arthrodesis status; Z79.899 Other long term (current) drug therapy; Z79.84 Long term (current) use of oral hypoglycemic drugs; Z79.82 Long term (current) use of aspirin; Z79.51 Long term (current) use of inhaled steroids; Z79.1 Long term (current) use of non-steroidal anti-inflammatories (NSAID); Z82.0 Family history of epilepsy and other diseases of the nervous system; Z82.49 Family history of ischemic heart disease and other diseases of the circulatory system
CPT/HCPCS: 99285 ×2; 96365 ×2; 96375 ×3; 96376; 96361; 96366; 36415; 94640; 93005; 85379; 83880; 80053; 84443; 82550; 82553; 83605; 83735; 84484; 85025; 85610; 85730; 81003; 87040; 87070; 87205; 71046; G0378 ×2; J0456; J0696 ×2; J1885

== ENCOUNTER 2018-06-01 07:57 | Emergency (ER) | payer MEDICARE, OTHER ==
[2018-06-01 08:10] VITALS: TEMP 98.7
[2018-06-01] MEDS ORDERED: MORPHINE SULFATE 4 MG/ML SYRINGE IV STA (08:32)
[2018-06-01] MEDS ORDERED: SODIUM CHLORIDE 0.9% 1,000 ML IV STA (08:32)
[2018-06-01] MEDS ORDERED: ONDANSETRON 4 MG/2 ML VIAL IVP STA ×2 (08:32→10:37)
--- NOTE | 2018-06-01 08:42 | ED ---
General Adult HPI - General Chief complaint: Back Pain/Injury Stated complaint: POST OP BACK PAIN Time Seen by Provider: 06/01/18 08:16 Source: EMS, RN notes reviewed Mode of arrival: EMS Limitations: physical limitation - History of Present Illness Initial comments: Patient's a 52-year-old male status post lumbar fusion of L1-L2 6 days, presented to the emergency room today from rehab facility by EMS for increased lower back pain with numbness and tingling into the right leg and in the groin. Patient does admit that he was doing well was released from the hospital yesterday and admitted to rehab. Patient states that approximate 9 PM last night began having increased pain that had some radiation into the right leg. He states he did have ideation the right leg prior to surgery but this the first time since surgery that he's had this pain. He describes it as a "burning " sensation back of the right thigh. Also admits that he noticed some numbness sensation to the groin area that first noticed this morning. Patient denies any bowel or bladder incontinence or retention. Patient denies any injury or trauma. Patient stating he believes it may be a mattress that he slept on last night. He does admit that he is feeling better with some the symptoms here laying down on his side currently. Patient denies any recent fever, chills, shortness of breath, chest pain, abdominal pain, nausea or vomiting, headaches or visual changes, or any other complaints. - Related Data Home Medications Medication Instructions Recorded Confirmed Cyclobenzaprine [Flexeril] 10 mg PO BID 07/24/15 03/18/18 Gabapentin 800 mg PO QID 07/24/15 03/18/18 Ibuprofen [Motrin] 800 mg PO TID 07/24/15 03/18/18 Omeprazole [PriLOSEC] 20 mg PO HS 07/24/15 03/18/18 Potassium Chloride [Klor-Con 10] 10 meq PO DAILY 07/24/15 03/18/18 Simvastatin [Zocor] 40 mg PO PC-SUPPER 07/24/15 03/18/18 metFORMIN HCL 1,000 mg PO BID 07/24/15 03/18/18 Aspirin [Adult Low Dose Aspirin EC] 81 mg PO DAILY 07/31/15 03/18/18 rOPINIRole HCL [Requip] 2 mg PO TID 03/18/16 03/18/18 Albuterol Inhaler [Ventolin Hfa 2 puff INHALATION RT-Q4H PRN 01/11/18 03/18/18 Inhaler] Beclomethasone Dipropionate [Qvar 2 puff INHALATION RT-BID 01/11/18 03/18/18 80 mcg] Cholecalciferol [Vitamin D3] 5,000 unit PO DAILY 01/11/18 03/18/18 Desloratadine/Pseudoephedrine 1 tab PO BID 01/11/18 03/18/18 [Clarinex-D 12 Hour Tablet] Pregabalin [Lyrica] 200 mg PO TID 01/11/18 03/18/18 sitaGLIPtin [Januvia] 100 mg PO DAILY 01/11/18 03/18/18 Previous Rx's Medication Instructions Recorded Hydrocodone/Acetaminophen [[place] 1 tab PO Q6HR PRN #12 tab 01/11/18 5-325] Cephalexin [Keflex] 500 mg PO Q8HR #21 cap 03/19/18 Metoprolol Tartrate [Lopressor] 100 mg PO BID #0 03/19/18 Allergies Allergy/AdvReac Type Severity Reaction Status Date / Time No Known Allergies Allergy Verified 03/18/18 18:52 Review of Systems ROS Statement: Those systems with pertinent positive or pertinent negative responses have been documented in the HPI. ROS Other: All systems not noted in ROS Statement are negative. Past Medical History Past Medical History: Coronary Artery Disease (CAD), COPD, Diabetes Mellitus, GERD/Reflux, Hyperlipidemia, Hypertension, Myocardial Infarction ([place]), Osteoarthritis (OA), Seizure Disorder, Sleep Apnea/CPAP/BIPAP Additional Past Medical History / Comment(s): LAST SEIZURE 2008; lumbar radiculopathy; neuropathy; no CPAP needed per recent sleep study Last Myocardial Infarction Date:: 10/22/10 History of Any Multi-Drug Resistant Organisms: None Reported Past Surgical History: Back Surgery, Cholecystectomy, Heart Catheterization With Stent Additional Past Surgical History / Comment(s): LAMINECTOMY ,fusion,spinal stimulator LEFT SHOULDER sx, 07-31-15 revison thoracic laminectomy t10-t11/ removal of neuro stimulator and wires removed Past Anesthesia/Blood Transfusion Reactions: No Reported Reaction Date of Last Stent Placement:: 10/22/10 Past Psychological History: Depression Smoking Status: Former smoker Past Alcohol Use History: None Reported Past Drug Use History: Marijuana - Past Family History Brother(s) Family Medical History: Deep Vein Thrombosis (DVT) Mother Family Medical History: Osteoarthritis (OA) Additional Family Medical History / Comment(s): psoriases, Parkinsons Father Family Medical History: Coronary Artery Disease (CAD) Additional Family Medical History / Comment(s): heart problems- quad bypass, General Exam - General Exam Comments Initial Comments: General: The patient is awake and alert, in no distress, and does not appear acutely ill. Eye: Extra-ocular movements are intact. No nystagmus. There is normal conjunctiva bilaterally. No signs of icterus. Ears, nose, mouth and throat: There are moist mucous membranes and no oral lesions. Neck: The neck is supple, there is no tenderness or JVD. Cardiovascular: There is a regular rate and rhythm. No murmur, rub or gallop is appreciated. Respiratory: Lungs are clear to auscultation, respirations are non-labored, breath sounds are equal. No wheezes, stridor, rales, or rhonchi. Gastrointestinal: Soft, non-distended, non-tender abdomen without masses or organomegaly noted. There is no rebound or guarding present. No CVA tenderness. Musculoskeletal: Surgical incision midline of the lower lumbar appears to be healing well. No redness erythema. No fluctuant area. No drainage. Pulses equal bilaterally 2+. Neurological: A&O x 3. CN II-XII intact, There are no obvious motor or sensory deficits. Coordination appears grossly intact. Speech is normal. Skin: Skin is warm and dry and no rashes or lesions are noted. Psychiatric: Cooperative, appropriate mood & affect, normal judgment. : Normal rectal tone. Limitations: physical limitation Course Vital Signs 06/01/18 06/01/18 08:01 11:21 Temperature 98.7 F Pulse Rate 127 H 122 H Respiratory 24 20 Rate Blood Pressure 147/68 155/69 O2 Sat by Pulse 99 96 Oximetry - Reevaluation(s) Reevaluation #1: 06/01/18 08:55: Case discussed with attending physician Dr. Baird who did discuss case with patient's orthopedic surgeon Dr. Valadez recommends pain control at this time and believes that numbness may be due to bursitis. We will check basic labs to rule out any infection. Surgical site is healing well with no obvious signs of infection. No fevers here in the emergency room. Medical Decision Making - Medical Decision Making Patient 52-year-old male presenting to ER for increased back pain. Patient status post lumbar fusion 5 days. Patient labs reviewed. Case discussed with his orthopedic physician Dr. Valadez. Patient's pain uncontrolled here. She will be transferred to [facility] for admission for pain control and orthopedic consult. - Lab Data Result diagrams: 06/01/18 09:00 06/01/18 09:00 Lab Results 06/01/18 06/01/18 06/01/18 Range/Units 09:00 09:00 09:00 WBC 8.3 (3.8-10.6) k/uL RBC 3.80 L (4.30-5.90) m/uL Hgb 11.2 L (13.0-17.5) gm/dL Hct 34.1 L (39.0-53.0) % MCV 89.7 (80.0-100.0) fL MCH 29.4 (25.0-35.0) pg MCHC 32.8 (31.0-37.0) g/dL RDW 13.3 (11.5-15.5) % Plt Count 242 (150-450) k/uL Neutrophils % 70 % Lymphocytes % 19 % Monocytes % 7 % Eosinophils % 1 % Basophils % 0 % Neutrophils # 5.8 (1.3-7.7) k/uL Lymphocytes # 1.6 (1.0-4.8) k/uL Monocytes # 0.6 (0-1.0) k/uL Eosinophils # 0.1 (0-0.7) k/uL Basophils # 0.0 (0-0.2) k/uL PT (9.0-12.0) sec INR (<1.2) APTT (22.0-30.0) sec Sodium 138 (137-145) mmol/L Potassium 4.0 (3.5-5.1) mmol/L Chloride 102 (98-107) mmol/L Carbon Dioxide 21 L (22-30) mmol/L Anion Gap 15 mmol/L BUN 9 (9-20) mg/dL Creatinine 0.57 L (0.66-1.25) mg/dL Est GFR (CKD-EPI)AfAm >90 (>60 ml/min/1.73 sqM) Est GFR (CKD-EPI)NonAf >90 (>60 ml/min/1.73 sqM) Glucose 124 H (74-99) mg/dL Plasma Lactic Acid [place] 1.5 (0.7-2.0) mmol/L Calcium 9.2 (8.4-10.2) mg/dL Total Bilirubin 1.2 (0.2-1.3) mg/dL AST 97 H (17-59) U/L ALT 88 H (21-72) U/L Alkaline Phosphatase 87 (38-126) U/L Total Protein 6.2 L (6.3-8.2) g/dL Albumin 3.6 (3.5-5.0) g/dL Urine Color Urine Appearance (Clear) Urine pH (5.0-8.0) Ur Specific [place] (1.001-1.035) Urine Protein (Negative) Urine Glucose (UA) (Negative) Urine Ketones (Negative) Urine Blood (Negative) Urine Nitrite (Negative) Urine Bilirubin (Negative) Urine Urobilinogen (<2.0) mg/dL Ur Leukocyte Esterase (Negative) Urine RBC (0-5) /hpf Urine WBC (0-5) /hpf Ur Squamous Epith Cells (0-4) /hpf Urine Bacteria (None) /hpf Hyaline Casts (0-2) /lpf Urine Mucus (None) /hpf 06/01/18 06/01/18 Range/Units 09:00 09:09 WBC (3.8-10.6) k/uL RBC (4.30-5.90) m/uL Hgb (13.0-17.5) gm/dL Hct (39.0-53.0) % MCV (80.0-100.0) fL MCH (25.0-35.0) pg MCHC (31.0-37.0) g/dL RDW (11.5-15.5) % Plt Count (150-450) k/uL Neutrophils % % Lymphocytes % % Monocytes % % Eosinophils % % Basophils % % Neutrophils # (1.3-7.7) k/uL Lymphocytes # (1.0-4.8) k/uL Monocytes # (0-1.0) k/uL Eosinophils # (0-0.7) k/uL Basophils # (0-0.2) k/uL PT 9.8 (9.0-12.0) sec INR 1.0 (<1.2) APTT 23.7 (22.0-30.0) sec Sodium (137-145) mmol/L Potassium (3.5-5.1) mmol/L Chloride (98-107) mmol/L Carbon Dioxide (22-30) mmol/L Anion Gap mmol/L BUN (9-20) mg/dL Creatinine (0.66-1.25) mg/dL Est GFR (CKD-EPI)AfAm (>60 ml/min/1.73 sqM) Est GFR (CKD-EPI)NonAf (>60 ml/min/1.73 sqM) Glucose (74-99) mg/dL Plasma Lactic Acid Francois (0.7-2.0) mmol/L Calcium (8.4-10.2) mg/dL Total Bilirubin (0.2-1.3) mg/dL AST (17-59) U/L ALT (21-72) U/L Alkaline Phosphatase (38-126) U/L Total Protein (6.3-8.2) g/dL Albumin (3.5-5.0) g/dL Urine Color Yellow Urine Appearance Cloudy (Clear) Urine pH 6.0 (5.0-8.0) Ur Specific [place] 1.019 (1.001-1.035) Urine Protein 1+ H (Negative) Urine Glucose (UA) Negative (Negative) Urine Ketones 4+ H (Negative) Urine Blood Negative (Negative) Urine Nitrite Negative (Negative) Urine Bilirubin Negative (Negative) Urine Urobilinogen <2.0 (<2.0) mg/dL Ur Leukocyte Esterase Negative (Negative) Urine RBC 1 (0-5) /hpf Urine WBC 8 H (0-5) /hpf Ur Squamous Epith Cells <1 (0-4) /hpf Urine Bacteria Occasional H (None) /hpf Hyaline Casts 3 H (0-2) /lpf Urine Mucus Many H (None) /hpf Disposition Clinical Impression: Acute low back pain Disposition: OTHER INSTITUTION NOT DEFINED Condition: Stable Is patient prescribed a controlled substance at d/c from ED?: No Referrals: Naman Ayala MD [Primary Care Provider] - 1-2 days Time of Disposition: 12:16 - Out of Hospital Transfer - Req. Specs Out of Hospital Transfer - Requested Specifics: Other Emergency Center ([facility])
[2018-06-01 09:20] LABS: Basophils % (A) 0 %; Eosinophils # (A) 0.1 k/uL (0-0.7); Eosinophils % (A) 1 %; HCT 34.1 % (39.0-53.0); HGB 11.2 gm/dL (13.0-17.5); Lymphocytes # (A) 1.6 k/uL (1.0-4.8); Lymphocytes % (A) 19 %; MCH 29.4 pg (25.0-35.0); MCHC 32.8 g/dL (31.0-37.0); MCV 89.7 fL (80.0-100.0); Mean Platelet Volume 7.1; Monocytes # (A) 0.6 k/uL (0-1.0); Monocytes % (A) 7 %; Neutrophils # (A) 5.8 k/uL (1.3-7.7); Neutrophils % (A) 70 %; Platelet Count 242 k/uL (150-450); RDW 13.3 % (11.5-15.5); WBC 8.3 k/uL (3.8-10.6)
[2018-06-01 09:28] LABS: ALT 88 U/L (21-72); AST 97 U/L (17-59); Albumin 3.6 g/dL (3.5-5.0); Alkaline Phosphatase 87 U/L (38-126); Anion Gap 15 mmol/L; Blood Urea Nitrogen 9 mg/dL (9-20); Calcium 9.2 mg/dL (8.4-10.2); Carbon Dioxide 21 mmol/L (22-30); Chloride 102 mmol/L (98-107); Glucose 124 mg/dL (74-99); Sodium 138 mmol/L (137-145); Total Bilirubin 1.2 mg/dL (0.2-1.3); Total Protein 6.2 g/dL (6.3-8.2)
[2018-06-01 09:31] LABS: Partial Thromboplastin Time 23.7 sec (22.0-30.0); Prothrombin Time 9.8 sec (9.0-12.0)
[2018-06-01 09:35] LABS: Appearance,Urine Cloudy (Clear); Bacteria,Urine Occasional /hpf; Bilirubin,Urine Negative (Negative); Blood,Urine Negative (Negative); Color,Urine Yellow; Glucose,Urine (UA) Negative (Negative); Hyaline Casts,Urine 3 /lpf (0-2); Ketones,Urine 4+ (Negative); Leukocyte Esterase,Urine Negative (Negative); Mucus,Urine Many /hpf; Nitrite,Urine Negative (Negative); Protein,Urine 1+ (Negative); RBC,Urine 1 /hpf (0-5); Specific Gravity,Urine 1.019 (1.001-1.035); Squamous Epithelial Cell,Urine <1 /hpf (0-4); Urobilinogen,Urine <2.0 mg/dL (<2.0)
[2018-06-01] MEDS ORDERED: HYDROmorphone 1 MG/ML 1 ML SYRINGE IVP STA ×2 (09:42→10:37)
[2018-06-01 11:22] VITALS: RESP 20
[2018-06-01 13:03] VITALS: BP 140/70; PULSE 117
== END 2018-06-01 13:45 | disposition other institution (70) ==
LOC: EC 07:57
DX: M54.5 Low back pain (principal); R20.0 Anesthesia of skin; I25.10 Atherosclerotic heart disease of native coronary artery without angina pectoris; J44.9 Chronic obstructive pulmonary disease, unspecified; K21.9 Gastro-esophageal reflux disease without esophagitis; E78.5 Hyperlipidemia, unspecified; I10 Essential (primary) hypertension; I25.2 Old myocardial infarction; M19.90 Unspecified osteoarthritis, unspecified site; G40.909 Epilepsy, unspecified, not intractable, without status epilepticus; E11.40 Type 2 diabetes mellitus with diabetic neuropathy, unspecified; F32.9 Major depressive disorder, single episode, unspecified; Z87.891 Personal history of nicotine dependence; Z79.82 Long term (current) use of aspirin; Z79.1 Long term (current) use of non-steroidal anti-inflammatories (NSAID); Z79.51 Long term (current) use of inhaled steroids; Z79.84 Long term (current) use of oral hypoglycemic drugs; Z79.899 Other long term (current) drug therapy; Z95.5 Presence of coronary angioplasty implant and graft; Z95.818 Presence of other cardiac implants and grafts
CPT/HCPCS: 36415; 80053; 83605; 85025; 85610; 85730; 81001; 87040; 87086; 99285; 96374; 96375 ×2; 96376 ×2; 96361 ×4; J2270; J2405; J1170

== ENCOUNTER 2018-08-05 17:07 | Inpatient (IN) | payer MEDICARE, OTHER ==
[2018-08-05 18:06] LABS: Glucose,Whole Blood 337 mg/dL (75-99)
[2018-08-05] MEDS ORDERED: SODIUM CHLORIDE 0.9% 1,000 ML IV STA (18:08)
--- NOTE | 2018-08-05 18:15 | ED ---
Neuro HPI - General Chief Complaint: Neuro Symptoms/Deficit Stated Complaint: poss TIA Time Seen by Provider: 08/05/18 18:07 Source: patient Mode of arrival: wheelchair Limitations: no limitations - History of Present Illness Is the patient presenting with stroke symptoms?: Yes Initial Comments: Patient is a 52-year-old male with a history of DVT, PE, and TIA, not on anticoagulation and presents with a chief complaint of weakness. On initial evaluation, the patient has an NIH stroke scale of 6 consisting of right-sided facial droop, sided upper and lower extremity weakness, and discoordination of the lower extremities. Patient is here alone states he does not know when the last time was that he was normal. He states that his symptoms have been persistent since this morning however. Patient is not a candidate for TPA at this time, given his duration of symptoms. This was discussed with the patient and he understands. Code stroke was activated, patient transported to computed tomography scan for CT and CTA. - Related Data Home Medications: Home Medications Medication Instructions Recorded Confirmed Cyclobenzaprine [Flexeril] 10 mg PO BID 07/24/15 08/05/18 Gabapentin 800 mg PO QID 07/24/15 08/05/18 Ibuprofen [Motrin] 800 mg PO TID 07/24/15 08/05/18 Omeprazole [PriLOSEC] 20 mg PO HS 07/24/15 08/05/18 Potassium Chloride [Klor-Con 10] 10 meq PO DAILY 07/24/15 08/05/18 Simvastatin [Zocor] 40 mg PO PC-SUPPER 07/24/15 08/05/18 metFORMIN HCL 1,000 mg PO BID 07/24/15 08/05/18 Aspirin [Adult Low Dose Aspirin EC] 81 mg PO DAILY 07/31/15 08/05/18 rOPINIRole HCL [Requip] 2 mg PO TID 03/18/16 08/05/18 Albuterol Inhaler [Ventolin Hfa 2 puff INHALATION RT-Q4H PRN 01/11/18 08/05/18 Inhaler] Beclomethasone Dipropionate [Qvar 2 puff INHALATION RT-BID 01/11/18 08/05/18 80 mcg] Cholecalciferol [Vitamin D3] 5,000 unit PO DAILY 01/11/18 08/05/18 Desloratadine/Pseudoephedrine 1 tab PO BID 01/11/18 08/05/18 [Clarinex-D 12 Hour Tablet] Pregabalin [Lyrica] 200 mg PO TID 01/11/18 08/05/18 sitaGLIPtin [Januvia] 100 mg PO DAILY 01/11/18 08/05/18 Lisinopril [Zestril] 10 mg PO DAILY 08/05/18 08/05/18 Previous Rx's Medication Instructions Recorded Metoprolol Tartrate [Lopressor] 100 mg PO BID #0 03/19/18 Allergies/Adverse Reactions: Allergies Allergy/AdvReac Type Severity Reaction Status Date / Time No Known Allergies Allergy Verified 08/05/18 18:13 Review of Systems ROS Statement: Those systems with pertinent positive or pertinent negative responses have been documented in the HPI. ROS Other: All systems not noted in ROS Statement are negative. General Exam Limitations: no limitations General appearance: alert, in no apparent distress, obese Head exam: Present: atraumatic, normocephalic Eye exam: Present: normal appearance, PERRL, EOMI ENT exam: Present: normal exam, mucous membranes moist Neck exam: Present: normal inspection Respiratory exam: Present: normal lung sounds bilaterally. Absent: respiratory distress, wheezes Cardiovascular Exam: Present: normal rhythm, tachycardia GI/Abdominal exam: Present: soft. Absent: distended, tenderness Rectal exam: Present: deferred Extremities exam: Present: normal inspection Back exam: Present: normal inspection Neurological exam: Present: alert, oriented X3, motor sensory deficit, other ( patient with facial droop on the right, left upper and lower extremity weakness , falls before 10 seconds. discoordination of the lower left extremity. ) Skin exam: Present: warm, dry, intact Stroke MDM - Lab Data Result diagrams: 08/05/18 17:55 08/05/18 17:55 Lab Results 08/05/18 08/05/18 08/05/18 Range/Units 17:54 17:55 17:55 WBC 9.3 (3.8-10.6) k/uL RBC 4.44 (4.30-5.90) m/uL Hgb 13.0 (13.0-17.5) gm/dL Hct 39.0 (39.0-53.0) % MCV 87.8 (80.0-100.0) fL MCH 29.4 (25.0-35.0) pg MCHC 33.4 (31.0-37.0) g/dL RDW 13.5 (11.5-15.5) % Plt Count 234 (150-450) k/uL Neutrophils % 62 % Lymphocytes % 30 % Monocytes % 4 % Eosinophils % 2 % Basophils % 0 % Neutrophils # 5.8 (1.3-7.7) k/uL Lymphocytes # 2.8 (1.0-4.8) k/uL Monocytes # 0.4 (0-1.0) k/uL Eosinophils # 0.2 (0-0.7) k/uL Basophils # 0.0 (0-0.2) k/uL PT (9.0-12.0) sec INR (<1.2) APTT (22.0-30.0) sec Sodium (137-145) mmol/L Potassium (3.5-5.1) mmol/L Chloride (98-107) mmol/L Carbon Dioxide (22-30) mmol/L Anion Gap mmol/L BUN (9-20) mg/dL Creatinine (0.66-1.25) mg/dL Est GFR (CKD-EPI)AfAm (>60 ml/min/1.73 sqM) Est GFR (CKD-EPI)NonAf (>60 ml/min/1.73 sqM) Glucose (74-99) mg/dL POC Glucose (mg/dL) 337 H (75-99) mg/dL POC Glu Radio Message Router ID Dulce Maria Evans Calcium (8.4-10.2) mg/dL Total Bilirubin (0.2-1.3) mg/dL AST (17-59) U/L ALT (21-72) U/L Alkaline Phosphatase (38-126) U/L Total Creatine Kinase (55-170) U/L CK-MB (CK-2) (0.0-2.4) ng/mL CK-MB (CK-2) Rel Index Troponin I (0.000-0.034) ng/mL Total Protein (6.3-8.2) g/dL Albumin (3.5-5.0) g/dL Urine Color Urine Appearance (Clear) Urine pH (5.0-8.0) Ur Specific [place] (1.001-1.035) Urine Protein (Negative) Urine Glucose (UA) (Negative) Urine Ketones (Negative) Urine Blood (Negative) Urine Nitrite (Negative) Urine Bilirubin (Negative) Urine Urobilinogen (<2.0) mg/dL Ur Leukocyte Esterase (Negative) Urine Opiates Screen Not Detected (NotDetected) Ur Oxycodone Screen Not Detected (NotDetected) Urine Methadone Screen Not Detected (NotDetected) Ur Propoxyphene Screen Not Detected (NotDetected) Ur Barbiturates Screen Not Detected (NotDetected) U Tricyclic Antidepress Not Detected (NotDetected) Ur Phencyclidine Scrn Not Detected (NotDetected) Ur Amphetamines Screen Not Detected (NotDetected) U Methamphetamines Scrn Not Detected (NotDetected) U Benzodiazepines Scrn Detected H (NotDetected) Urine Cocaine Screen Not Detected (NotDetected) U Marijuana (THC) Screen Detected H (NotDetected) 08/05/18 08/05/18 08/05/18 Range/Units 17:55 17:55 17:55 WBC (3.8-10.6) k/uL RBC (4.30-5.90) m/uL Hgb (13.0-17.5) gm/dL Hct (39.0-53.0) % MCV (80.0-100.0) fL MCH (25.0-35.0) pg MCHC (31.0-37.0) g/dL RDW (11.5-15.5) % Plt Count (150-450) k/uL Neutrophils % % Lymphocytes % % Monocytes % % Eosinophils % % Basophils % % Neutrophils # (1.3-7.7) k/uL Lymphocytes # (1.0-4.8) k/uL Monocytes # (0-1.0) k/uL Eosinophils # (0-0.7) k/uL Basophils # (0-0.2) k/uL PT 9.5 (9.0-12.0) sec INR 1.0 (<1.2) APTT 22.6 (22.0-30.0) sec Sodium 137 (137-145) mmol/L Potassium 4.3 (3.5-5.1) mmol/L Chloride 102 (98-107) mmol/L Carbon Dioxide 25 (22-30) mmol/L Anion Gap 10 mmol/L BUN 10 (9-20) mg/dL Creatinine 0.63 L (0.66-1.25) mg/dL Est GFR (CKD-EPI)AfAm >90 (>60 ml/min/1.73 sqM) Est GFR (CKD-EPI)NonAf >90 (>60 ml/min/1.73 sqM) Glucose 346 H (74-99) mg/dL POC Glucose (mg/dL) (75-99) mg/dL POC Glu Radio Message Router ID Calcium 9.6 (8.4-10.2) mg/dL Total Bilirubin 0.4 (0.2-1.3) mg/dL AST 17 (17-59) U/L ALT 32 (21-72) U/L Alkaline Phosphatase 103 (38-126) U/L Total Creatine Kinase 62 (55-170) U/L CK-MB (CK-2) 1.1 (0.0-2.4) ng/mL CK-MB (CK-2) Rel Index 1.8 Troponin I <0.012 (0.000-0.034) ng/mL Total Protein 7.0 (6.3-8.2) g/dL Albumin 4.2 (3.5-5.0) g/dL Urine Color Urine Appearance (Clear) Urine pH (5.0-8.0) Ur Specific [place] (1.001-1.035) Urine Protein (Negative) Urine Glucose (UA) (Negative) Urine Ketones (Negative) Urine Blood (Negative) Urine Nitrite (Negative) Urine Bilirubin (Negative) Urine Urobilinogen (<2.0) mg/dL Ur Leukocyte Esterase (Negative) Urine Opiates Screen (NotDetected) Ur Oxycodone Screen (NotDetected) Urine Methadone Screen (NotDetected) Ur Propoxyphene Screen (NotDetected) Ur Barbiturates Screen (NotDetected) U Tricyclic Antidepress (NotDetected) Ur Phencyclidine Scrn (NotDetected) Ur Amphetamines Screen (NotDetected) U Methamphetamines Scrn (NotDetected) U Benzodiazepines Scrn (NotDetected) Urine Cocaine Screen (NotDetected) U Marijuana (THC) Screen (NotDetected) 08/05/18 Range/Units 17:55 WBC (3.8-10.6) k/uL RBC (4.30-5.90) m/uL Hgb (13.0-17.5) gm/dL Hct (39.0-53.0) % MCV (80.0-100.0) fL MCH (25.0-35.0) pg MCHC (31.0-37.0) g/dL RDW (11.5-15.5) % Plt Count (150-450) k/uL Neutrophils % % Lymphocytes % % Monocytes % % Eosinophils % % Basophils % % Neutrophils # (1.3-7.7) k/uL Lymphocytes # (1.0-4.8) k/uL Monocytes # (0-1.0) k/uL Eosinophils # (0-0.7) k/uL Basophils # (0-0.2) k/uL PT (9.0-12.0) sec INR (<1.2) APTT (22.0-30.0) sec Sodium (137-145) mmol/L Potassium (3.5-5.1) mmol/L Chloride (98-107) mmol/L Carbon Dioxide (22-30) mmol/L Anion Gap mmol/L BUN (9-20) mg/dL Creatinine (0.66-1.25) mg/dL Est GFR (CKD-EPI)AfAm (>60 ml/min/1.73 sqM) Est GFR (CKD-EPI)NonAf (>60 ml/min/1.73 sqM) Glucose (74-99) mg/dL POC Glucose (mg/dL) (75-99) mg/dL POC Glu Radio Message Router ID Calcium (8.4-10.2) mg/dL Total Bilirubin (0.2-1.3) mg/dL AST (17-59) U/L ALT (21-72) U/L Alkaline Phosphatase (38-126) U/L Total Creatine Kinase (55-170) U/L CK-MB (CK-2) (0.0-2.4) ng/mL CK-MB (CK-2) Rel Index Troponin I (0.000-0.034) ng/mL Total Protein (6.3-8.2) g/dL Albumin (3.5-5.0) g/dL Urine Color Light Yellow Urine Appearance Clear (Clear) Urine pH 5.5 (5.0-8.0) Ur Specific [place] 1.004 (1.001-1.035) Urine Protein Negative (Negative) Urine Glucose (UA) 4+ H (Negative) Urine Ketones Negative (Negative) Urine Blood Negative (Negative) Urine Nitrite Negative (Negative) Urine Bilirubin Negative (Negative) Urine Urobilinogen <2.0 (<2.0) mg/dL Ur Leukocyte Esterase Negative (Negative) Urine Opiates Screen (NotDetected) Ur Oxycodone Screen (NotDetected) Urine Methadone Screen (NotDetected) Ur Propoxyphene Screen (NotDetected) Ur Barbiturates Screen (NotDetected) U Tricyclic Antidepress (NotDetected) Ur Phencyclidine Scrn (NotDetected) Ur Amphetamines Screen (NotDetected) U Methamphetamines Scrn (NotDetected) U Benzodiazepines Scrn (NotDetected) Urine Cocaine Screen (NotDetected) U Marijuana (THC) Screen (NotDetected) - NIH Stroke Scale 1a. Level of Consciousness: (0) alert 1b. LOC Questions: (0) answers correctly 1c. LOC Commands: (0) performs tasks correctly 2. Best Gaze: (0) normal 3. Visual: (0) no visual loss 4. Facial Palsy: (1) minor paralysis 5a. Motor Arm Left: (1) drift 5b. Motor Arm Right: (0) no drift 6a. Motor Leg Left: (1) drift 6b. Motor Leg Right: (0) no drift 7. Limb Ataxia: (1) present 1 limb 8. Sensory: (0) normal 9. Best Language: (0) no aphasia 10. Dysarthria: (1) mild/moderate dysarthria 11. Extinction/Inattention: (0) no abnormality - Thrombolytic Inclusion/Exclusion Thrombolytic Exclusion Criteria: Onset of Symptoms Unknown - Medical Decision Making Patient presents with a chief complaint of weakness and neurodeficit. On initial evaluation, patient hasn't had a stroke scale of 6 binders exam, 5 by my exam. Patient has an unknown onset of symptoms and he states he is had these symptoms since this morning. Stroke alert activated, patient is not a TPA candidate however he may be a consideration for thrombolytic directed therapy. Initial exam shows stable vital signs. Mildly tachycardic. Stroke alert activated, patient transported to computed tomography scan. 6:40 PM Case discussed with Dr. More, who was able to review the CT and CTA with me. There is no evidence of bleed, there is no evidence of large vessel occlusion. Patient had a TPA candidate or a thrombectomy candidate at this time. He will be given aspirin, started on simvastatin, and admitted for stroke workup. Other lab work still pending. 8:08 PM patient re-examined, exam unchanged. labs show no acute process. UDS shows positive benzos and marijuana. at this time patient managed with medical management. case discussed with Dr. velasco who accepts admission with consult to Neuro. patient agreeable with care plan. Past Medical History Past Medical History: Coronary Artery Disease (CAD), COPD, Diabetes Mellitus, GERD/Reflux, Hyperlipidemia, Hypertension, Myocardial Infarction (GA), Osteoarthritis (OA), Seizure Disorder, Sleep Apnea/CPAP/BIPAP Additional Past Medical History / Comment(s): LAST SEIZURE 2008; lumbar radiculopathy; neuropathy; no CPAP needed per recent sleep study Last Myocardial Infarction Date:: 10/22/10 History of Any Multi-Drug Resistant Organisms: None Reported Past Surgical History: Back Surgery, Cholecystectomy, Heart Catheterization With Stent Additional Past Surgical History / Comment(s): LAMINECTOMY ,fusion,spinal stimulator LEFT SHOULDER sx, 07-31-15 revison thoracic laminectomy [id number]/ removal of neuro stimulator and wires removed Past Anesthesia/Blood Transfusion Reactions: No Reported Reaction Date of Last Stent Placement:: 10/22/10 Past Psychological History: Depression Smoking Status: Former smoker Past Alcohol Use History: None Reported Past Drug Use History: Marijuana - Past Family History Brother(s) Family Medical History: Deep Vein Thrombosis (DVT) Mother Family Medical History: Osteoarthritis (OA) Additional Family Medical History / Comment(s): psoriases, Parkinsons Father Family Medical History: Coronary Artery Disease (CAD) Additional Family Medical History / Comment(s): heart problems- quad bypass, Course Vital Signs 08/05/18 08/05/18 08/05/18 17:18 18:00 18:15 Temperature 98.2 F Pulse Rate 109 H 90 85 Respiratory 20 18 16 Rate Blood Pressure 162/101 150/87 128/86 O2 Sat by Pulse 97 98 98 Oximetry 08/05/18 08/05/18 08/05/18 18:30 18:45 19:00 Temperature Pulse Rate 861 H 91 89 Respiratory 8 L 18 18 Rate Blood Pressure 113/73 123/84 123/84 O2 Sat by Pulse 98 97 Oximetry 08/05/18 19:15 Temperature Pulse Rate 90 Respiratory 18 Rate Blood Pressure 119/78 O2 Sat by Pulse Oximetry Disposition Clinical Impression: Cerebrovascular accident Disposition: ADMITTED IP TO THIS HOSP Condition: Fair Is patient prescribed a controlled substance at d/c from ED?: No Referrals: Naman Ayala MD [Primary Care Provider] - 1-2 days Decision to Admit Reason: Admit from EC - Out of Hospital Transfer - Req. Specs Out of Hospital Transfer - Requested Specifics: Other Non-Acute
[2018-08-05 18:28] LABS: Basophils % (A) 0 %; Eosinophils # (A) 0.2 k/uL (0-0.7); Eosinophils % (A) 2 %; Lymphocytes # (A) 2.8 k/uL (1.0-4.8); Lymphocytes % (A) 30 %; MCH 29.4 pg (25.0-35.0); MCHC 33.4 g/dL (31.0-37.0); MCV 87.8 fL (80.0-100.0); Mean Platelet Volume 7.5; Monocytes # (A) 0.4 k/uL (0-1.0); Monocytes % (A) 4 %; Neutrophils # (A) 5.8 k/uL (1.3-7.7); Neutrophils % (A) 62 %; Platelet Count 234 k/uL (150-450); RBC 4.44 m/uL (4.30-5.90); RDW 13.5 % (11.5-15.5); WBC 9.3 k/uL (3.8-10.6)
[2018-08-05 18:35] LABS: Appearance,Urine Clear (Clear); Bilirubin,Urine Negative (Negative); Blood,Urine Negative (Negative); Color,Urine Light Yellow; Glucose,Urine (UA) 4+ (Negative); Ketones,Urine Negative (Negative); Leukocyte Esterase,Urine Negative (Negative); Nitrite,Urine Negative (Negative); PH, Urine 5.5 (5.0-8.0); Protein,Urine Negative (Negative); Specific Gravity,Urine 1.004 (1.001-1.035); Urobilinogen,Urine <2.0 mg/dL (<2.0)
[2018-08-05 18:36] LABS: Partial Thromboplastin Time 22.6 sec (22.0-30.0); Prothrombin Time 9.5 sec (9.0-12.0)
[2018-08-05 18:37] LABS: ALT 32 U/L (21-72); AST 17 U/L (17-59); Albumin 4.2 g/dL (3.5-5.0); Alkaline Phosphatase 103 U/L (38-126); Anion Gap 10 mmol/L; Blood Urea Nitrogen 10 mg/dL (9-20); Calcium 9.6 mg/dL (8.4-10.2); Carbon Dioxide 25 mmol/L (22-30); Chloride 102 mmol/L (98-107); Glucose 346 mg/dL (74-99); Potassium 4.3 mmol/L (3.5-5.1); Sodium 137 mmol/L (137-145); Total Bilirubin 0.4 mg/dL (0.2-1.3)
[2018-08-05 18:46] LABS: Amphetamine Screen,Urine Not Detected (NotDetected); Barbiturate Screen,Urine Not Detected (NotDetected); Benzodiazepines Screen,Urine Detected (NotDetected); Cocaine Screen,Urine Not Detected (NotDetected); Methadone Screen, Urine Not Detected (NotDetected); Opiate Screen,Urine Not Detected (NotDetected); Oxycodone Screen, Urine Not Detected (NotDetected); Phencyclidine Screen,Urine Not Detected (NotDetected); Tricyclic Antidepressant,Urine Not Detected (NotDetected); Urn Cannabinoid Scrn Detected (NotDetected)
[2018-08-05 18:49] LABS: Creatine Kinase 62 U/L (55-170)
--- NOTE | 2018-08-05 18:52 | CT ---
EXAMINATION TYPE: CT brain wo con for TPA DATE OF EXAM: 08/05/2018 COMPARISON: 08/19/2011 HISTORY: Neuro deficits. CT DLP: 1331 mGycm Automated exposure control for dose reduction was used. FINDINGS: There is mild cerebral cortical atrophy. There is no mass effect nor midline shift. There is no sign of intracranial hemorrhage. Calvarium is intact. IMPRESSION: NO ACUTE INTRACRANIAL ABNORMALITY. NO ADVERSE CHANGE OVERALL COMPARED TO OLD EXAM.
[2018-08-05 19:02] LABS: Creatine Kinase MB 1.1 ng/mL (0.0-2.4); Troponin I <0.012 ng/mL (0.000-0.034)
--- NOTE | 2018-08-05 19:05 | CT ---
EXAMINATION TYPE: CT angio head neck DATE OF EXAM: 08/05/2018 HISTORY: Neuro deficits. COMPARISON: None CT DLP: 722.3 mGycm. Automated Exposure Control for Dose Reduction was Utilized. TECHNIQUE: CTA scan of the neck is performed with IV Contrast, patient injected with 65ml mL of Isov ue 370, axial images are obtained, coronal and sagittal reformatted images are reviewed. Three-D fabio nstructed images are created on an independent workstation and reviewed. FINDINGS: There is normal branching pattern of the great vessels on the aortic arch. There is bilateral arteria l flow in the vertebral arteries which are fairly symmetric. There is patency of the vertebrobasilar artery system. There is arterial flow in the common internal and external carotid arteries bilaterall y. I see no evidence of carotid stenosis. There is no evidence of carotid or vertebral artery dissect ion. There is arterial flow in the anterior middle and posterior cerebral arteries. There is arterial flow in the vertebrobasilar artery system. There is no mass effect. There is no evidence of intracra nial aneurysm or neovascularity. There is normal contrast opacification of the venous sinuses. IMPRESSION: Negative CT angiogram of the neck. Negative CT angiogram of the brain.
[2018-08-05] MEDS ORDERED: ASPIRIN 81 MG PO STA (19:55)
[2018-08-05] MEDS ORDERED: NALOXONE 0.4 MG/ML 1 ML VIAL IV PRN (20:04)
--- NOTE | 2018-08-05 20:04 | XR ---
EXAMINATION TYPE: XR chest 2V DATE OF EXAM: 08/05/2018 COMPARISON: 03/18/2018 HISTORY: Weakness TECHNIQUE: Frontal and lateral views of the chest are obtained. FINDINGS: There is a 2.5 cm rounded masslike density in the right middle lobe anteriorly on the late ral view. The other lung hernandes are clear. Heart and mediastinum are normal. There are chest leads. B martha thorax is intact. IMPRESSION: There is right middle lobe masslike density suspicious for tumor. This appears new maritza red to old exam. There is clearing of the right middle lobe infiltrate compared to old exam. Follow-u p is recommended.
[2018-08-05] MEDS ORDERED: ASPIRIN 300 MG SUPP RECTAL STA (20:47)
[2018-08-05] MEDS ORDERED: DIAZEPAM 5 MG/ML (10 ML MDV) IVP STA (23:21)
[2018-08-05] MEDS: HYDROmorphone 1 MG/ML 1 ML SYRINGE IVP PRN (23:55)
[2018-08-06 02:40] VITALS: BMI 36.1
[2018-08-06] MEDS: HYDROmorphone 1 MG/ML 1 ML SYRINGE IVP PRN (04:05)
[2018-08-06 06:33] LABS: Basophils % (A) 0 %; Eosinophils # (A) 0.2 k/uL (0-0.7); Eosinophils % (A) 2 %; HCT 36.6 % (39.0-53.0); HGB 11.9 gm/dL (13.0-17.5); Lymphocytes # (A) 2.4 k/uL (1.0-4.8); Lymphocytes % (A) 31 %; MCH 28.6 pg (25.0-35.0); MCHC 32.6 g/dL (31.0-37.0); MCV 87.8 fL (80.0-100.0); Mean Platelet Volume 7.3; Monocytes # (A) 0.4 k/uL (0-1.0); Monocytes % (A) 5 %; Neutrophils # (A) 4.4 k/uL (1.3-7.7); Neutrophils % (A) 59 %; Platelet Count 194 k/uL (150-450); RBC 4.17 m/uL (4.30-5.90); RDW 13.7 % (11.5-15.5); WBC 7.5 k/uL (3.8-10.6)
[2018-08-06] MEDS: INSULIN ASPART 100 UNIT/ML 1 ML 10 ML VIAL SQ SCH ×4 (06:38→20:54)
[2018-08-06 06:41] LABS: Anion Gap 9 mmol/L; Blood Urea Nitrogen 12 mg/dL (9-20); Calcium 9.2 mg/dL (8.4-10.2); Carbon Dioxide 26 mmol/L (22-30); Chloride 104 mmol/L (98-107); Glucose 214 mg/dL (74-99); Potassium 4.1 mmol/L (3.5-5.1); Sodium 139 mmol/L (137-145)
[2018-08-06 06:47] LABS: Glucose,Whole Blood 213 mg/dL (75-99)
[2018-08-06] MEDS ORDERED: ALBUTEROL NEBULIZED 2.5 MG/3 ML INHALATION PRN (07:54)
[2018-08-06] MEDS ORDERED: INSULIN ASPART 100 UNIT/ML 1 ML 10 ML VIAL SQ ONE (08:30)
[2018-08-06] MEDS ORDERED: ASPIRIN 81 MG PO SCH (09:00)
[2018-08-06] MEDS: metFORMIN 500 MG TAB PO SCH ×2 (09:22→20:50)
[2018-08-06] MEDS: IBUPROFEN 800 MG TAB PO SCH ×3 (09:22→20:49)
[2018-08-06] MEDS: CHOLECALCIFEROL 1,000 UNIT TAB PO SCH (09:22)
[2018-08-06] MEDS: CYCLOBENZAPRINE 10 MG TAB PO SCH ×2 (09:23→20:49)
[2018-08-06] MEDS: POTASSIUM CHLORIDE ER 10 MEQ TAB.ER.PRT PO SCH (09:23)
[2018-08-06] MEDS: PREGABALIN 100 MG CAP PO SCH ×3 (09:23→20:49)
[2018-08-06] MEDS: GABAPENTIN 400 MG CAP PO SCH ×4 (09:23→20:50)
[2018-08-06] MEDS: LINAGLIPTIN 5 MG TABLET PO SCH (09:23)
[2018-08-06] MEDS: LISINOPRIL 10 MG TAB PO SCH (09:23)
[2018-08-06] MEDS: METOPROLOL TARTRATE 50 MG TAB PO SCH ×2 (09:23→20:50)
[2018-08-06] MEDS: LORATADINE-PSEUDOEPH 5-120 MG 1 EACH TAB.ER.12H PO SCH ×2 (09:24→20:55)
[2018-08-06] MEDS ORDERED: DIAZEPAM 2 MG TAB PO PRN (09:36)
[2018-08-06] MEDS: FLUTICASONE 110 MCG INHALER INHALATION SCH ×3 (11:35→21:21)
[2018-08-06 11:56] LABS: Glucose,Whole Blood 240 mg/dL (75-99)
--- NOTE | 2018-08-06 12:31 | US ---
EXAMINATION TYPE: US carotid duplex BILAT DATE OF EXAM: 08/06/2018 COMPARISON: NONE CLINICAL HISTORY: cva. EXAM MEASUREMENTS: RIGHT: Peak Systolic Velocity (PSV) cm/sec ----- Right CCA: 81.3 ----- Right ICA: 95.8 ----- Right ECA: 98.7 ICA/CCA ratio: 1.2 RIGHT: End Diastole cm/sec ----- Right CCA: 27.5 ----- Right ICA: 26.0 ----- Right ECA: 15.9 LEFT: Peak Systolic Velocity (PSV) cm/sec ----- Left CCA: 85.4 ----- Left ICA: 85.4 ----- Left ECA: 106.4 ICA/CCA ratio: 1.0 LEFT: End Diastole cm/sec ----- Left CCA: 22.5 ----- Left ICA: 28.9 ----- Left ECA: 16.0 VERTEBRALS (direction of flow): Right Vertebral: Antegrade Left Vertebral: Antegrade Rhythm: Normal Mild to moderate plaque at bilateral bulbs. No elevated in either ICA. No significant stenosis. IMPRESSION: I DO NOT SEE EVIDENCE OF A HEMODYNAMICALLY SIGNIFICANT STENOSIS IN EITHER CAROTID SYSTEM. Criteria for Assigning % of Stenosis / Diameter reduction (Estimation based on the indirect measurements of the internal carotid artery velocities (ICA PSV). 1. Normal (no stenosis)=ICA PSV < 125 cm/s: ratio < 2.0: ICA EDV<40 cm/s. 2. Less than 50% stenosis=ICA PSV < 125 cm/s: ratio < 2.0: ICA EDV<40 cm/s. 3. 50 to 69% stenosis=ICA PSV of 125 to 230 cm/s: ration 2.0 ? 4.0: ICA EDV 40-100 cm/s. 4. Greater than 70% stenosis to near occlusion= ICA PSV > 230 cm/s: ratio > 4.0: ICA EDV > 100 cm/s. 5. Near occlusion= ICA PSV velocities may be low or undetectable: variable ratio and ICA EDV. 6. Total occlusion=unable to detect flow.
--- NOTE | 2018-08-06 13:37 | HP ---
HISTORY AND PHYSICAL CHIEF COMPLAINT: This patient is a 52-year-old white male with history of DVT, PE, TIA, not on any anticoagulation. He presents with weakness. He was seen in the ER and he had right facial drooping and left arm weakness, left leg weakness, discoordination. He failed a swallow evaluation here on the floor. He passed this morning swallow evaluation. He still has left-sided weakness. He was not a candidate for tPA in the ER. CT angiogram was done. MEDICATIONS: 1. Flexeril. 2. Gabapentin. 3. Motrin. 4. Omeprazole. 5. Klor-Con. 6. Zocor. 7. Metformin. 8. Aspirin. 9. Requip. 10.Ventolin. 11.Qvar. 12.Vitamin D. 13.Claritin-D. 14.Lyrica. 15.Januvia. 16.Zestril. ALLERGIES: NEGATIVE. REVIEW OF SYSTEMS: Fourteen-point review of systems negative except for mentioned in HPI. PHYSICAL EXAMINATION: Vital signs are stable. Afebrile. CARDIOVASCULAR: S1, S2. LUNGS: Clear. GI: Soft. HEMATOLOGY: Negative Homans. PSYCH: Fair mood and affect. OPHTHALMOLOGIC: Pupils equal, round, reactive to light and accommodation. NECK: Supple. LABS: BUN 10, creatinine 0.63, white count 9.3. ASSESSMENT: 1. Status post lumbar surgery. 2. Acute stroke. 3. Left hemiparesis. 4. Hypertension. 5. Obesity. 6. Dyslipidemia. 7. Nicotine addiction. Admit to hospital. Stroke workup in progress. Please see further orders. MMODL / IJN: [id number] /
--- NOTE | 2018-08-06 14:05 | P.CNNES ---
History of Present Illness Consult date: 08/06/18 Requesting physician: Cal Sunshine Reason for Consult: Stroke History of Present Illness: Patient is a pleasant 52-year-old male who is being evaluated by the neurology service on 08/06/2018 per the request of Dr. Sunshine for stroke. Patient has a history of DVT, PE, and TIA and is on aspirin in the home setting. Patient states he lives alone and noticed yesterday that his left leg was extremely weak. Patient states he started slurring his speech and decided to come to [facility] for evaluation. Patient had CTA of the brain and neck on admission which were negative for any abnormality. Patient had CT of the brain which showed no acute intracranial abnormality. Carotid Doppler showed no evidence of hemodynamically significant stenosis. Vital signs on admission showed temperature 98.2, pulse 109, respiratory rate 20, blood pressure 162/101, and oxygen saturation 97% on room air. Labs on admission showed hemoglobin 11.9, hematocrit 36.6, BUN 10, creatinine 0.63, and glucose 346. At the time of my evaluation, patient is resting comfortably in bed and appears to be in no acute distress. Review of Systems REVIEW OF SYSTEMS: Otherwise unremarkable and noncontributory. Past Medical History Past Medical History: Coronary Artery Disease (CAD), COPD, Diabetes Mellitus, GERD/Reflux, Hyperlipidemia, Hypertension, Myocardial Infarction (RI), Osteoarthritis (OA), Seizure Disorder, Sleep Apnea/CPAP/BIPAP Additional Past Medical History / Comment(s): LAST SEIZURE 2008; lumbar radiculopathy; neuropathy; no CPAP needed per recent sleep study Last Myocardial Infarction Date:: 10/22/10 History of Any Multi-Drug Resistant Organisms: None Reported Past Surgical History: Back Surgery, Cholecystectomy, Heart Catheterization With Stent Additional Past Surgical History / Comment(s): LAMINECTOMY ,fusion,spinal stimulator LEFT SHOULDER sx, 07-31-15 revison thoracic laminectomy [id number]-t11/ removal of neuro stimulator and wires removed, fused L1&2 to a cage fusion that was previously put in to L3,4,5. May 27/2018. 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 Smoking Status: Former smoker Past Alcohol Use History: None Reported Additional Past Alcohol Use History / Comment(s): STARTED SMOKING 1977, smokes 1 ppd, smoking cessation booklet given to pt. quit drinking 2009 Past Drug Use History: Marijuana Additional Drug Use History / Comment(s): HAS A MEDICAL CARD DAILY - Past Family History Brother(s) Family Medical History: Deep Vein Thrombosis (DVT) Mother Family Medical History: Osteoarthritis (OA) Additional Family Medical History / Comment(s): psoriases, Parkinsons Father Family Medical History: Coronary Artery Disease (CAD) Additional Family Medical History / Comment(s): heart problems- quad bypass, Medications and Allergies Home Medications Medication Instructions Recorded Confirmed Type Cyclobenzaprine [Flexeril] 10 mg PO BID 07/24/15 08/05/18 History Gabapentin 800 mg PO QID 07/24/15 08/05/18 History Ibuprofen [Motrin] 800 mg PO TID 07/24/15 08/05/18 History Omeprazole [PriLOSEC] 20 mg PO HS 07/24/15 08/05/18 History Potassium Chloride [Klor-Con 10] 10 meq PO DAILY 07/24/15 08/05/18 History Simvastatin [Zocor] 40 mg PO PC-SUPPER 07/24/15 08/05/18 History metFORMIN HCL 1,000 mg PO BID 07/24/15 08/05/18 History Aspirin [Adult Low Dose Aspirin EC] 81 mg PO DAILY 07/31/15 08/05/18 History rOPINIRole HCL [Requip] 2 mg PO TID 03/18/16 08/05/18 History Albuterol Inhaler [Ventolin Hfa 2 puff INHALATION RT-Q4H PRN 01/11/18 08/05/18 History Inhaler] Beclomethasone Dipropionate [Qvar 2 puff INHALATION RT-BID 01/11/18 08/05/18 History 80 mcg] Cholecalciferol [Vitamin D3] 5,000 unit PO DAILY 01/11/18 08/05/18 History Desloratadine/Pseudoephedrine 1 tab PO BID 01/11/18 08/05/18 History [Clarinex-D 12 Hour Tablet] Pregabalin [Lyrica] 200 mg PO TID 01/11/18 08/05/18 History sitaGLIPtin [Januvia] 100 mg PO DAILY 01/11/18 08/05/18 History Metoprolol Tartrate [Lopressor] 100 mg PO BID #0 03/19/18 08/05/18 Rx Lisinopril [Zestril] 10 mg PO DAILY 08/05/18 08/05/18 History Diazepam [Valium] 0.5 mg PO Q8HR PRN 08/06/18 08/06/18 History Allergies Allergy/AdvReac Type Severity Reaction Status Date / Time No Known Allergies Allergy Verified 08/05/18 18:13 Physical Examination - Vital Signs Vital Signs: Vital Signs Temp Pulse Pulse Resp BP BP Pulse Ox 08/06/18 11:48 97.8 F 70 18 111/55 96 08/06/18 08:00 98.2 F 95 18 141/58 99 08/06/18 04:00 98 F 89 16 147/67 97 08/06/18 02:22 97.6 F 86 20 122/85 98 08/06/18 00:00 84 130/77 99 08/05/18 22:53 97.8 F 89 18 108/56 98 08/05/18 20:30 87 114/81 98 08/05/18 20:00 85 120/77 98 08/05/18 19:30 80 98/59 97 08/05/18 19:15 90 18 119/78 08/05/18 19:00 92 18 123/84 98 08/05/18 18:45 91 18 123/84 97 08/05/18 18:30 861 H 8 L 150/87 98 08/05/18 18:15 85 16 128/86 98 08/05/18 18:05 98 08/05/18 18:00 90 18 150/87 98 08/05/18 17:18 98.2 F 109 H 20 162/101 97 Intake and Output 08/05/18 08/06/18 08/06/18 22:59 06:59 14:59 Intake Total 0 0 Balance 0 0 Intake: Oral 0 0 Other: Voiding Method Urinal # Voids 1 1 Weight 120.656 kg 120.5 kg PHYSICAL EXAM: GENERAL APPEARANCE: Patient is a well-developed, male who appears to be in no acute distress. HEENT: Normocephalic, atraumatic, trace left facial asymmetry is seen. Neck is supple with no masses felt. CARDIOVASCULAR: Regular rate and rhythm. ABDOMEN: Nontender, nondistended. EXTREMITIES: Show no edema or clubbing. NEUROLOGICAL EXAM: Patient is awake, alert, and oriented 3. Speech is dysarthric. Language is normal. Strength is 4+/5 on the left upper and lower extremity and 5-/5 on the right upper and lower extremity. Patient has sensory deficit to light touch on left upper and lower extremity. No dysphagia. Trace left facial asymmetry on cranial nerve testing. No tremors or seizure-like activity noted. Results - Laboratory Findings CBC and BMP: 08/06/18 05:40 08/06/18 05:40 Abnormal Lab Findings: Abnormal Labs 08/05/18 08/05/18 08/05/18 17:54 17:55 17:55 RBC Hgb Hct Creatinine 0.63 L Glucose 346 H POC Glucose (mg/dL) 337 H Urine Glucose (UA) U Benzodiazepines Scrn Detected H U Marijuana (THC) Screen Detected H 08/05/18 08/06/18 08/06/18 17:55 05:40 05:40 RBC 4.17 L Hgb 11.9 L Hct 36.6 L Creatinine 0.56 L Glucose 214 H POC Glucose (mg/dL) Urine Glucose (UA) 4+ H U Benzodiazepines Scrn U Marijuana (THC) Screen 08/06/18 08/06/18 06:36 11:52 RBC Hgb Hct Creatinine Glucose POC Glucose (mg/dL) 213 H 240 H Urine Glucose (UA) U Benzodiazepines Scrn U Marijuana (THC) Screen Assessment and Plan Plan: Impression: 1. CVA 2. Left hemiparesis 3. Dysarthria 4. Left side sensory deficit 5. Hypertension 6. History of recent lumbar surgery Recommendation: It does appear patient had a cerebrovascular accident likely involving right MCA distribution. He continues to have dysarthria and left- sided weakness. Patient did pass swallow eval. CTA of the brain and neck was negative for any abnormality. CT of the brain showed no acute intracranial abnormality. Chest x-ray shows a right middle lobe mass like density suspicious for tumor. This is a new finding compared to the old exam. Chest x- ray shows clearing of the right middle lobe infiltrate as compared to the old exam. I recommend pulmonary/oncology consultation for follow-up for possible lung mass. Carotid Doppler showed no hemodynamically significant stenosis. I will order an MRI of the brain to evaluate for CVA. I will order an EEG, fasting lipid panel, and serum homocysteine level. I recommend PT OT to evaluate and treat. I recommend speech therapy for dysarthria and dysphagia. I will switch his aspirin to Plavix 75 mg by mouth daily. I will continue to follow with you. Further recommendations to follow. Thank you for allowing me to participate in the care of your patient. Feel free to call me with any questions or concerns. I performed an examination of the patient and discussed the management with the FIRE SPRINKLER APPARATUS INSPECTOR. I have reviewed the FIRE SPRINKLER APPARATUS INSPECTOR notes and agree with the findings and plan of care.
--- NOTE | 2018-08-06 14:49 | MR ---
EXAMINATION TYPE: MR brain wo con DATE OF EXAM: 08/06/2018 COMPARISON: 08/05/2018 HISTORY: Left-sided weakness and slurring TECHNIQUE: Multiplanar, multisequence images of the brain and brainstem is performed without IV contrast. Motion artifact is seen on the sagittal and coronal images. FINDINGS: Diffusion weighted images demonstrate no evidence of a recent infarct or other diffusion ab normality. There is no extra-axial fluid collection. There are patchy areas of T2/FLAIR hyperintensi ty within the periventricular and subcortical white matter, moderate burden. The ventricular system a nd cisternal spaces are normal in size and appearance. The brain volume is age appropriate. Midline structures demonstrate normal morphology. The craniocervical junction appears within normal limits. Post contrast images demonstrate no abnormal enhancement. The dural venous sinuses appear pa tent. The visualized sinuses demonstrate moderate mucosal thickening. The globes are intact. IMPRESSION: 1. Despite the patient's left-sided weakness and slurring there are no areas of restricted diffusion to indicate acute infarct. 2. Moderate burden nonspecific white matter change, likely on the basis of chronic microangiopathy.
--- NOTE | 2018-08-06 15:24 | MR ---
EXAMINATION TYPE: MR angio head wo con DATE OF EXAM: 08/06/2018 COMPARISON: NONE HISTORY: Neuro Deficts, Pt has Left sided weakness and slurring, MRA ONLY Per SUPERVISOR SANDBLASTER.JAMEL TECHNIQUE: Time of flight images focusing on the [place] of [place] were performed without contrast.. 2-D and 3-D postprocessing imaging is performed. FINDINGS: There is no evidence of large vessel vascular occlusion, aneurysmal outpouching or dissecti on. No evidence of focal stenosis that is hemodynamically significant. Posterior circulation is unrem arkable. Posterior communicating arteries are extremely diminutive but present and therefore the circ le of [place] is intact. No arterial venous malformation is seen. Vertebral arteries are codominant. IMPRESSION: Unremarkable MRA of the brain. No hemodynamically significant stenosis, focal, aneurysm o r dissection.
[2018-08-06 16:26] LABS: Glucose,Whole Blood 222 mg/dL (75-99)
[2018-08-06 16:42] LABS: Cholesterol 125 mg/dL (<200); HDL Cholesterol 23 mg/dL (40-60); LDL Cholesterol,Calculated 64 mg/dL (0-99); Triglycerides 189 mg/dL (<150)
[2018-08-06] MEDS: ATORVASTATIN 20 MG TAB PO SCH (17:16)
[2018-08-06] MEDS: CLOPIDOGREL 75 MG TAB PO SCH (17:16)
[2018-08-06] MEDS: PANTOPRAZOLE 40 MG TABLET PO SCH (20:49)
[2018-08-06 20:50] LABS: Glucose,Whole Blood 221 mg/dL (75-99)
[2018-08-07 05:44] LABS: Glucose,Whole Blood 139 mg/dL (75-99)
[2018-08-07] MEDS: INSULIN ASPART 100 UNIT/ML 1 ML 10 ML VIAL SQ SCH ×4 (06:29→20:46)
[2018-08-07] MEDS: GABAPENTIN 400 MG CAP PO SCH ×4 (08:14→23:18)
[2018-08-07] MEDS: PREGABALIN 100 MG CAP PO SCH ×3 (08:14→23:19)
[2018-08-07] MEDS: POTASSIUM CHLORIDE ER 10 MEQ TAB.ER.PRT PO SCH (08:14)
[2018-08-07] MEDS: LINAGLIPTIN 5 MG TABLET PO SCH (08:14)
[2018-08-07] MEDS: CLOPIDOGREL 75 MG TAB PO SCH (08:14)
[2018-08-07] MEDS: metFORMIN 500 MG TAB PO SCH ×2 (08:15→20:51)
[2018-08-07] MEDS: METOPROLOL TARTRATE 50 MG TAB PO SCH ×2 (08:15→20:47)
[2018-08-07] MEDS: CYCLOBENZAPRINE 10 MG TAB PO SCH ×2 (08:15→20:46)
[2018-08-07] MEDS: IBUPROFEN 800 MG TAB PO SCH ×3 (08:15→23:18)
[2018-08-07] MEDS: LISINOPRIL 10 MG TAB PO SCH (08:15)
[2018-08-07] MEDS: LORATADINE-PSEUDOEPH 5-120 MG 1 EACH TAB.ER.12H PO SCH ×2 (08:16→20:47)
[2018-08-07] MEDS: FLUTICASONE 110 MCG INHALER INHALATION SCH ×2 (08:25→20:43)
--- NOTE | 2018-08-07 09:04 | ECHOF ---
Referral Reason:cva MEASUREMENTS -------- HEIGHT: 180.3 cm WEIGHT: 120.2 kg BP: 111/55 RVIDd: 3.1 cm (< 3.3) IVSd: 1.7 cm (0.6 - 1.1) LVIDd: 3.9 cm (3.9 - 5.3) LVPWd: 1.9 cm (0.6 - 1.1) IVSs: 2.3 cm LVIDs: 2.5 cm LVPWs: 1.7 cm Ao Diam: 3.7 cm (2.0 - 3.7) AV Cusp: 2.3 cm (1.5 - 2.6) LA Diam: 3.7 cm (2.7 - 3.8) MV EXCURSION: 20.651 mm (> 18.000) MV EF SLOPE: 84 mm/s (70 - 150) EPSS: 0.7 cm MV E Rupert: 0.69 m/s MV DecT: 196 ms MV A Rupert: 0.57 m/s MV E/A Ratio: 1.21 RAP: 5.00 mmHg RVSP: 11.07 mmHg FINDINGS -------- Sinus rhythm. This was a technically good study. The left ventricular size is normal. There is severe concentric left ventricular hypertrophy. Ove rall left ventricular systolic function is normal with, an EF between 55 - 60 %. The right ventricle is normal in size and function. The left atrium is normal in size. The right atrium is normal in size. The aortic valve is trileaflet, and appears structurally normal. No aortic stenosis or regurgitation. Mild mitral regurgitation is present. Mild tricuspid regurgitation present. The right ventricular systolic pressure, as measured by Doppl er, is 11.07mmHg. Pulmonic valve appears structurally normal. The aortic root is mildy dilated. Normal inferior vena cava with normal inspiratory collapse consistent with estimated right atrial pre ssure of 5 mmHg. The pericardium is normal. CONCLUSIONS -------- 1. Sinus rhythm. 2. This was a technically good study. 3. The left ventricular size is normal. 4. There is severe concentric left ventricular hypertrophy. 5. Overall left ventricular systolic function is normal with, an EF between 55 - 60 %. 6. The right ventricle is normal in size and function. 7. The left atrium is normal in size. 8. The right atrium is normal in size. 9. The aortic valve is trileaflet, and appears structurally normal. No aortic stenosis or regurgitati on. 10. Mild mitral regurgitation is present. 11. Mild tricuspid regurgitation present. 12. The right ventricular systolic pressure, as measured by Doppler, is 11.07mmHg. 13. Pulmonic valve appears structurally normal. 14. The aortic root is mildy dilated. 15. Normal inferior vena cava with normal inspiratory collapse consistent with estimated right atrial pressure of 5 mmHg. 16. The pericardium is normal. TOOL PLANNER: Na Deshpande RDCS
[2018-08-07 12:01] LABS: Glucose,Whole Blood 147 mg/dL (75-99)
[2018-08-07] MEDS: CHOLECALCIFEROL 1,000 UNIT TAB PO SCH (12:58)
--- NOTE | 2018-08-07 16:23 | US ---
EXAMINATION TYPE: US venous doppler duplex LE LT DATE OF EXAM: 08/07/2018 1:38 PM COMPARISON: CLINICAL HISTORY: suspected clot . Left purple foot. Neuropathy. No hx of blood clots. No leg swel ling or redness. Started Plavix yesterday. SIDE PERFORMED: Left TECHNIQUE: The lower extremity deep venous system is examined utilizing real time linear array sonog justine with graded compression, doppler sonography and color-flow sonography. VESSELS IMAGED: External Iliac Vein (EIV) Common Femoral Vein Deep Femoral Vein Greater Saphenous Vein * Femoral Vein Popliteal Vein Small Saphenous Vein * Proximal Calf Veins (* superficial vessels) Left Leg: Negative for DVT This exam does not evaluate the arterial system. IMPRESSION: 1. Left lower extremity deep venous ultrasound negative for deep venous thrombosis.
[2018-08-07 16:35] LABS: Glucose,Whole Blood 198 mg/dL (75-99)
[2018-08-07] MEDS: ATORVASTATIN 20 MG TAB PO SCH (16:56)
--- NOTE | 2018-08-07 17:52 | P.PN ---
Subjective Progress Note Date: 08/07/18 Patient is a pleasant 52-year-old male who is being followed by the neurology service for left lower extremity weakness and dysarthria. Patient has history of DVT, PE, and TIA and is not on Coumadin but is on aspirin in the home setting. Patient had lumbar surgery approximately 10 years ago and had fusion of L3-L4 and L5. Patient states he had a cage placed. Recently he had fusion of L1-L2. Patient went to rehab for about 7 weeks following surgery. Patient was home about 10 days and noticed weakness in his left leg and slurred speech. Patient came to [facility] for further evaluation. CT of the brain showed no acute intracranial abnormality. Carotid Doppler showed no evidence of hemodynamically significant stenosis. MRI of the brain showed no areas of restricted diffusion to indicate acute infarct. CTA of the head and neck were negative for any abnormality. At the time of my evaluation, patient is sitting up in the chair and appears to be in no acute distress. Objective - Vital Signs Vital signs: Vital Signs Temp 97.8 F 08/07/18 16:00 Pulse 83 08/07/18 16:00 Resp 16 08/07/18 16:00 BP 134/71 08/07/18 16:00 Pulse Ox 96 08/07/18 16:00 Intake & Output 08/06/18 08/07/18 08/07/18 18:59 06:59 18:59 Intake Total 360 480 360 Output Total 500 0 1150 Balance -140 480 -790 Weight 124.7 kg Intake: Oral 360 480 360 Output: Urine 500 0 1150 Other: Voiding Method Urinal # Voids 1 3 - Exam PHYSICAL EXAM: GENERAL APPEARANCE: Patient is a well-developed, male who appears to be in no acute distress. HEENT: Normocephalic, atraumatic, no facial asymmetry is seen. Neck is supple with no masses felt. CARDIOVASCULAR: Regular rate and rhythm. ABDOMEN: Nontender, nondistended. EXTREMITIES: Show no edema or clubbing. NEUROLOGICAL EXAM: Patient is awake, alert, and oriented 3. Speech mildly dysarthric but improved and language is normal. Strength is full in right upper and lower extremity. Left lower extremity strength is 3/5. Left upper extremity strength is full. Sensory exam to light touch is normal in all 4 extremities. Trace left facial droop on cranial nerve testing. No tremors or seizure-like activity noted. - Labs CBC & Chem 7: 08/06/18 05:40 08/06/18 05:40 Labs: Abnormal Lab Results - Last 24 Hours (Table) 08/06/18 08/06/18 08/07/18 Range/Units 05:40 20:49 05:43 POC Glucose (mg/dL) 221 H 139 H (75-99) mg/dL Hemoglobin A1c 8.0 H (4.0-6.0) % 08/07/18 08/07/18 Range/Units 11:52 16:33 POC Glucose (mg/dL) 147 H 198 H (75-99) mg/dL Hemoglobin A1c (4.0-6.0) % Assessment and Plan Plan: Impression: 1. Left lower extremity weakness 2. Recent fusion of L1-L2 3. Dysarthria 4. Hypertension 5. History of recent lumbar surgery Recommendation: It does appear patient had a cerebrovascular accident even though testing does not confirm this. Patient may have had a small stroke in the brainstem which was not picked up on testing. As for his left lower extremity weakness, I will order a stat CT with and without contrast of the lumbar spine. This is more likely due to his recent lumbar surgery. CTA of the brain and neck was negative for any abnormality. CT of the brain showed no acute intracranial abnormality. EEG was done and results are pending. His fasting lipid panel showed elevated triglycerides of 189 and low HDL of 23. Continue statin therapy. Serum homocysteine level is pending. I recommend PT OT to evaluate and treat. Continue Plavix 75 mg by mouth daily. I will continue to follow with you. Further recommendations to follow. I performed an examination of the patient and discussed the management with the SHAFT SINKER. I have reviewed the SHAFT SINKER notes and agree with the findings and plan of care.
[2018-08-07 19:51] LABS: Glucose,Whole Blood 137 mg/dL (75-99)
--- NOTE | 2018-08-07 20:05 | CT ---
EXAMINATION TYPE: CT lumbar spine wo/w con DATE OF EXAM: 08/07/2018 COMPARISON: 01/11/2018 HISTORY: Low back pain with most recent fusion in May 2018 CT DLP: 2456.4 mGycm CONTRAST: CT scan of the lumbar is performed without and with IV Contrast, patient injected with mL of Isovue 3 00. TECHNIQUE: CT of the lumbar spine is performed on a spiral scan at 3 mm thick sections. Reconstructed images are performed in the coronal and sagittal planes. FINDINGS: T11-T12: No focal disc herniation or significant disc bulge is evident. No spinal canal stenosis or n eural foraminal stenosis is present. T12-L1: No focal disc herniation or significant disc bulge is evident. No spinal canal stenosis or neural foraminal stenosis is present. Small amount of ligamentous calcification may be present automatic vulcanizing operator ior to the disc space. L1-L2: Broad-based disc bulge is present with mild anterior thecal sac impression. No spinal canal st enosis or neural foraminal stenosis. L2-L3: Broad-based disc bulge has mild anterior thecal sac compression. Facet hypertrophy is present. Facet hypertrophy and ligamentum flavum laxity is present. Mild spinal canal narrowing may be presen t. L3-L4: Pedicle screws are present L3. Disc changes with a disc spacer performed. No spinal canal sten osis is evident. Facet degenerative changes are present. L4-L5: Pedicle screws are present L4 and L5. Disc height appears preserved. Spinal canal stenosis is not evident. L5-S1: There is a grade 2 spondylolisthesis of L5 anterior on S1. No spinal canal stenosis is present . Laminectomies been performed. Remaining vertebral body alignment appears normal. IMPRESSION: 1. Grade 2 spondylolisthesis of L2 and L5 anterior on S1. This is stable from comparison. 2. Interval placement of L2-3 and L4 pedicle screws with a disc spacer at L3-4. 3. Broad-based disc bulging L1-L2 , L2-L3 with mild anterior thecal sac compression. Ligamentum flavu m laxity at L2-L3 may be contributing to spinal canal narrowing without stenosis.
[2018-08-07] MEDS: HEPARIN SODIUM,PORCINE 5,000 UNIT/ML 1 ML VIAL SQ SCH (20:46)
[2018-08-07] MEDS: PANTOPRAZOLE 40 MG TABLET PO SCH (20:47)
--- NOTE | 2018-08-07 23:35 | PN ---
PROGRESS NOTE DATE OF SERVICE: 08/07/2018. HISTORY: He does not have any shortness of breath. He still has some slurring of his speech. PHYSICAL EXAMINATION: Blood pressure is 134/71, respiratory rate of 16, pulse rate 83, temperature 97.8, O2 saturation on room air is 96%. HEENT reveals pupils that are equal. No jugular venous distention. Chest is clear. Cardiovascular system reveals S1, S2. Abdomen is soft. There is no edema. He has some slurring of his speech. LABS: Labs revealed a glucose of 137, white count 7.5, hemoglobin of 11.9. IMPRESSION: 1. Acute cerebrovascular accident. 2. Diabetes mellitus. 3. Status post lumbar surgery. PLAN: At this point in time, would continue him on his current medications which were reviewed. Have Physical Medicine and Rehab further evaluate the patient. His prognosis is guarded. He was counseled regarding his condition and this approach. MMODL / IJN: [id number] /
[2018-08-08 05:47] LABS: Glucose,Whole Blood 167 mg/dL (75-99)
[2018-08-08] MEDS: INSULIN ASPART 100 UNIT/ML 1 ML 10 ML VIAL SQ SCH ×4 (06:27→21:57)
--- NOTE | 2018-08-08 06:54 | P.CONS ---
History of Present Illness - Chief Complaint Gait disturbance - History of Present Illness I had the opportunity to see patient for inpatient rehab consultation with regard to gait disturbance. He was admitted to [facility] August 05 with speech disturbance and left-sided weakness, after visit of visiting physician. Carotid Doppler negative. Brain MRI moderate white matter change only. Left leg Doppler negative for DVT. Lumbar CT with bulges 013 and surgery L2-S1. PT , OT, MUSEUM OR ZOO DIRECTOR prescribed. Previous functional history as elicited patient: 52-year-old right-handed white male who is and lives in trailer home alone. On disability. Does own cooking, laundry, sitdown shower and gait with roller walker. Dr. Swift visiting physician. Smokes a half pack per day and doesn't drink. Depends on friends for rides. Family history father with cardiac disease. Review of Systems Review of systems: ENT: Denies sneezes or discharge. Eyes: Denies discharge or photophobia. Cardiac: Denies chest pain or palpitation. Pulmonary: Denies cough or shortness of breath. Gastrointestinal: Denies nausea, emesis, constipation, diarrhea. Genitourinary: Denies discharge or frequency. Musculoskeletal: Denies muscle or bone aches. Neurologic: Slurring of speech and left-sided weakness. Endocrine: Denies shakes or sweats. Oncology: Denies cancers. Dermatologic: Denies rash, itching, pruritus. ALLERGY/immunology: Denies sneezes, rashes. Past Medical History Past Medical History: Coronary Artery Disease (CAD), COPD, Diabetes Mellitus, GERD/Reflux, Hyperlipidemia, Hypertension, Myocardial Infarction (SD), Osteoarthritis (OA), Seizure Disorder, Sleep Apnea/CPAP/BIPAP Additional Past Medical History / Comment(s): LAST SEIZURE 2008; lumbar radiculopathy; neuropathy; no CPAP needed per recent sleep study Last Myocardial Infarction Date:: 10/22/10 History of Any Multi-Drug Resistant Organisms: None Reported Past Surgical History: Back Surgery, Cholecystectomy, Heart Catheterization With Stent Additional Past Surgical History / Comment(s): LAMINECTOMY ,fusion,spinal stimulator LEFT SHOULDER sx, 07-31-15 revison thoracic laminectomy t10-t11/ removal of neuro stimulator and wires removed, fused L1&2 to a cage fusion that was previously put in to L3,4,5. May 27/2018. 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 Smoking Status: Former smoker Past Alcohol Use History: None Reported Additional Past Alcohol Use History / Comment(s): STARTED SMOKING 1977, smokes 1 ppd, smoking cessation booklet given to pt. quit drinking 2009 Past Drug Use History: Marijuana Additional Drug Use History / Comment(s): HAS A MEDICAL CARD DAILY - Past Family History Brother(s) Family Medical History: Deep Vein Thrombosis (DVT) Mother Family Medical History: Osteoarthritis (OA) Additional Family Medical History / Comment(s): psoriases, Parkinsons Father Family Medical History: Coronary Artery Disease (CAD) Additional Family Medical History / Comment(s): heart problems- quad bypass, Medications and Allergies Home Medications Medication Instructions Recorded Confirmed Type Cyclobenzaprine [Flexeril] 10 mg PO BID 07/24/15 08/05/18 History Gabapentin 800 mg PO QID 07/24/15 08/05/18 History Ibuprofen [Motrin] 800 mg PO TID 07/24/15 08/05/18 History Omeprazole [PriLOSEC] 20 mg PO HS 07/24/15 08/05/18 History Potassium Chloride [Klor-Con 10] 10 meq PO DAILY 07/24/15 08/05/18 History Simvastatin [Zocor] 40 mg PO PC-SUPPER 07/24/15 08/05/18 History metFORMIN HCL 1,000 mg PO BID 07/24/15 08/05/18 History Aspirin [Adult Low Dose Aspirin EC] 81 mg PO DAILY 07/31/15 08/05/18 History rOPINIRole HCL [Requip] 2 mg PO TID 03/18/16 08/05/18 History Albuterol Inhaler [Ventolin Hfa 2 puff INHALATION RT-Q4H PRN 01/11/18 08/05/18 History Inhaler] Beclomethasone Dipropionate [Qvar 2 puff INHALATION RT-BID 01/11/18 08/05/18 History 80 mcg] Cholecalciferol [Vitamin D3] 5,000 unit PO DAILY 01/11/18 08/05/18 History Desloratadine/Pseudoephedrine 1 tab PO BID 01/11/18 08/05/18 History [Clarinex-D 12 Hour Tablet] Pregabalin [Lyrica] 200 mg PO TID 01/11/18 08/05/18 History sitaGLIPtin [Januvia] 100 mg PO DAILY 01/11/18 08/05/18 History Metoprolol Tartrate [Lopressor] 100 mg PO BID #0 03/19/18 08/05/18 Rx Lisinopril [Zestril] 10 mg PO DAILY 08/05/18 08/05/18 History Diazepam [Valium] 0.5 mg PO Q8HR PRN 08/06/18 08/06/18 History Allergies Allergy/AdvReac Type Severity Reaction Status Date / Time No Known Allergies Allergy Verified 08/05/18 18:13 Physical Exam Vitals: Vital Signs Temp Pulse Resp BP BP Pulse Ox 08/08/18 03:53 97.7 F 76 16 116/56 97 08/08/18 00:00 76 18 125/75 96 08/07/18 20:00 97.7 F 87 18 150/79 98 08/07/18 16:00 97.8 F 83 16 134/71 96 08/07/18 12:00 98.1 F 79 18 138/65 98 08/07/18 08:00 98.1 F 83 18 141/80 97 Intake and Output 08/07/18 08/07/18 08/08/18 14:59 22:59 06:59 Intake Total 360 Output Total 1150 2100 Balance -790 -2100 Intake: Oral 360 Output: Urine 1150 2100 Other: Voiding Method Urinal Urinal # Voids 1 Weight 123.1 kg Skin: Good color, texture, turgor. General: Medium build and comfortable appearance. Head: Normocephalic, atraumatic. Eyes: Symmetric. Pupils equal round. Ears: Symmetric. Hearing within normal limits. Mouth: Clear. Neck: Supple. Carotid without bruit. Cardiac: Regular rate and rhythm. Lungs: Clear anteriorly and posteriorly. Abdomen: Soft active nontender. Extremities: Normal tone. Neurological: Mental status: Alert, cooperative, pleasant. Mild dysarthria Cranial nerves: Symmetric facial tone and trapezius. Motor: Normal strength and isolation right side. Left side in synergy. Sensation: Intact throughout. DTRs: Symmetric and equal throughout. Mobility: Requires assistance for standing and transfers. Results CBC & Chem 7: 08/06/18 05:40 08/06/18 05:40 Labs: Abnormal Lab Results - Last 24 Hours (Table) 08/07/18 08/07/18 08/07/18 Range/Units 11:52 16:33 19:50 POC Glucose (mg/dL) 147 H 198 H 137 H (75-99) mg/dL 08/08/18 Range/Units 05:45 POC Glucose (mg/dL) 167 H (75-99) mg/dL Assessment and Plan (1) Cerebrovascular accident Current Visit: Yes Status: Acute Code(s): I63.9 - CEREBRAL INFARCTION, UNSPECIFIED SNOMED Code(s): 573633398 Plan: Impression: 1. Gait disturbance. 2. Right side MCA stroke result in left hemiparesthesias and dysarthria. 3. Lumbar disc disease with history of 7 surgeries and fusion L2-S1 4. Hypertension. 5. Dyslipidemia. 6. Coronary disease with history of SD. 7. Sleep apnea. 8. Diabetes. 9. COPD. 10. Osteoarthritis. Constant plan: At this time PT, OT, MUSEUM OR ZOO DIRECTOR ordered. [facility].
[2018-08-08] MEDS: FLUTICASONE 110 MCG INHALER INHALATION SCH ×2 (07:24→21:36)
[2018-08-08] MEDS: CLOPIDOGREL 75 MG TAB PO SCH (09:04)
[2018-08-08] MEDS: metFORMIN 500 MG TAB PO SCH ×2 (09:04→21:56)
[2018-08-08] MEDS: LINAGLIPTIN 5 MG TABLET PO SCH (09:05)
[2018-08-08] MEDS: PREGABALIN 100 MG CAP PO SCH ×3 (09:05→21:55)
[2018-08-08] MEDS: IBUPROFEN 800 MG TAB PO SCH ×3 (09:05→21:55)
[2018-08-08] MEDS: POTASSIUM CHLORIDE ER 10 MEQ TAB.ER.PRT PO SCH (09:05)
[2018-08-08] MEDS: GABAPENTIN 400 MG CAP PO SCH ×4 (09:05→21:55)
[2018-08-08] MEDS: LISINOPRIL 10 MG TAB PO SCH (09:06)
[2018-08-08] MEDS: HEPARIN SODIUM,PORCINE 5,000 UNIT/ML 1 ML VIAL SQ SCH ×2 (09:06→21:57)
[2018-08-08] MEDS: CYCLOBENZAPRINE 10 MG TAB PO SCH ×2 (09:06→21:55)
[2018-08-08] MEDS: METOPROLOL TARTRATE 50 MG TAB PO SCH ×2 (09:06→21:55)
[2018-08-08] MEDS: LORATADINE-PSEUDOEPH 5-120 MG 1 EACH TAB.ER.12H PO SCH (09:09)
[2018-08-08] MEDS: CHOLECALCIFEROL 1,000 UNIT TAB PO SCH (09:09)
[2018-08-08 11:47] LABS: Glucose,Whole Blood 185 mg/dL (75-99)
[2018-08-08] MEDS: POLYETHYLENE GLYCOL 3350 17 GM POWD.PACK PO SCH (12:28)
--- NOTE | 2018-08-08 13:09 | EEG ---
ELECTROENCEPHALOGRAM REPORT DATE OF SERVICE: 08/07/2018 REASON FOR TESTING: Stroke. DESCRIPTION OF THE PROCEDURE: This EEG was performed using a 21 channel digital electroencephalograph, following international 10-20 system. DESCRIPTION OF THE RECORDING: From the beginning of the tracing, and with patient's eyes closed, the background rhythm was mostly consisting of 9-10 Hz alpha frequency in the posterior occipital leads. No obvious asymmetry is seen. Photic stimulation was performed with a minimal driving response seen. No pathological waves were elicited. Occasional movement and muscle artifacts are seen. Hyperventilation was not performed. The patient remains awake throughout the tracing. No epileptiform discharges were seen. His EKG lead showed a regular rate and rhythm. INTERPRETATION: This awake EEG can be considered within normal limits. There is no asymmetry seen. No epileptiform discharges were noticed. The absence of epileptiform discharges does not rule out the diagnosis of epilepsy; therefore clinical correlation is recommended. MMASHELYL / IJPiedad: [id number] /
--- NOTE | 2018-08-08 15:45 | DS ---
DISCHARGE SUMMARY DISCHARGE DIAGNOSES: 1. Cerebellum cerebrovascular accident. 2. Dehydration. 3. Pneumonia. 4. Lumbar disc disease. 5. Insulin-dependent diabetes mellitus. 6. Dyslipidemia. 7. Restless legs syndrome. 8. Obstructive sleep apnea, non treated. 9. Neuropathy. 10.Asthma. 11.Hypertension. HOME MEDS: Home medicines: 1. Zestril 10 mg daily. 2. Lopressor 100 b.i.d. 3. QVAR 80 2 puffs b.i.d. 4. Januvia 100 mg daily. 5. Vitamin D3 5000 units daily. 6. Albuterol. 7. Ventolin HFA 2 puffs q.4 hours p.r.n. 8. Requip 2 mg t.i.d. 9. Aspirin 81 mg daily. 10.Flexeril 10 mg b.i.d. 11.Gabapentin 100 mg q.i.d. 12.Prilosec 20 mg daily. 13.Zocor 40 mg q.h.s. 14.Klor-Con 10 mEq daily. 15.Motrin 800 mg t.i.d. 16.Metformin 1000 b.i.d. 17.Plavix 75 mg daily. 18.MiraLAX 17 g daily. 19.NovoLog 0 units subcu a.c. and q.h.s. CONDITION: Stable. PROGNOSIS: Guarded. Ambulate as tolerated. HOSPITAL COURSE OF EVENTS: White male, 52 years old, came in with altered mental status, possible cerebellar CVA, started on Plavix per Neurology. MRI did not show stroke, but we still suspect a cerebellar stroke with some left-sided weakness and some dysphagia on admission. He had polypharmacy with multiple muscle relaxers and neuropathy pills which we stopped his Lyrica, kept on Neurontin. Stopped Valium and kept on Flexeril. This is possibly contributing to his altered mental status and weakness. He will be sent back to the rehab center for treatment of a stroke, which is greatly improved. His speech is back to normal and he has been up moving his left side a little bit better but he still has like 3 to 4/5 strength in the left arm and left leg. Able to swallow good. Please see further orders. Diet regular. Ambulate as tolerated. Condition stable. Prognosis guarded. MMODL / IJN: [id number] /
[2018-08-08 16:20] LABS: Glucose,Whole Blood 146 mg/dL (75-99)
--- NOTE | 2018-08-08 16:37 | P.PN ---
Subjective Progress Note Date: 08/08/18 Patient is a pleasant 52-year-old male who is being followed by the neurology service for left lower extremity weakness and dysarthria. Patient has history of DVT, PE, and TIA and is not on Coumadin but is on aspirin in the home setting. Patient had lumbar surgery approximately 10 years ago and had fusion of L3-L4 and L5. Patient states he had a cage placed. Recently he had fusion of L1-L2. Patient went to rehab for about 7 weeks following surgery. Patient was home about 10 days and noticed weakness in his left leg and slurred speech. Patient came to [facility] for further evaluation. CT of the brain showed no acute intracranial abnormality. Carotid Doppler showed no evidence of hemodynamically significant stenosis. MRI of the brain showed no areas of restricted diffusion to indicate acute infarct. CTA of the head and neck were negative for any abnormality. At the time of my evaluation, patient is sitting up in the chair and appears to be in no acute distress. 08/08/2018 Patient is a pleasant 52-year-old male who is being followed by the neurology service for left lower extremity weakness and dysarthria. Patient came in with slurred speech and left lower extremity weakness. Testing showed no evidence of a CVA. Patient also has recent history of back surgery. Patient had fusion of L3, L4, L5 about 10 years ago. He recently had fusion of L1 and L2. Patient was doing fine and was in rehab for approximately 7 weeks following surgery. Patient was home for approximately 10 days and noticed the left lower extremity weakness and slurred speech. Stat CT of the lumbar spine was done last evening and Dr. Egan will be consulted. Patient speech is improved but is still mildly dysarthric which may be due to small brainstem infarct that is undetected. At the time of my evaluation, patient is resting comfortably in the chair beside his bed. No acute distress noted. Objective - Vital Signs Vital signs: Vital Signs Temp 98.7 F 08/08/18 12:00 Pulse 90 08/08/18 12:00 Resp 18 08/08/18 12:00 BP 129/81 08/08/18 12:00 Pulse Ox 97 08/08/18 12:00 Intake & Output 08/07/18 08/08/18 08/08/18 18:59 06:59 18:59 Intake Total 360 462 Output Total 1150 2100 700 Balance -790 -2100 -238 Weight 123.1 kg Intake: Oral 360 462 Output: Urine 1150 2100 700 Other: Voiding Method Urinal Urinal # Voids 1 - Exam PHYSICAL EXAM: GENERAL APPEARANCE: Patient is a well-developed, male who appears to be in no acute distress. HEENT: Normocephalic, atraumatic, no facial asymmetry is seen. Neck is supple with no masses felt. CARDIOVASCULAR: Regular rate and rhythm. ABDOMEN: Nontender, nondistended. EXTREMITIES: Show no edema or clubbing. NEUROLOGICAL EXAM: Patient is awake, alert, and oriented 3. Speech mildly dysarthric but improved and language is normal. Strength is full in right upper and lower extremity. Left lower extremity strength is 3/5. Left upper extremity strength is full. Sensory exam to light touch is normal in all 4 extremities. Trace left facial droop on cranial nerve testing. No tremors or seizure-like activity noted. - Labs CBC & Chem 7: 08/06/18 05:40 08/06/18 05:40 Labs: Abnormal Lab Results - Last 24 Hours (Table) 08/06/18 08/07/18 08/07/18 Range/Units 15:53 16:33 19:50 POC Glucose (mg/dL) 198 H 137 H (75-99) mg/dL Homocysteine 14.83 H (4.00-14.00) umol/L 08/08/18 08/08/18 Range/Units 05:45 11:40 POC Glucose (mg/dL) 167 H 185 H (75-99) mg/dL Homocysteine (4.00-14.00) umol/L Assessment and Plan Plan: Impression: 1. Left lower extremity weakness 2. Recent fusion of L1-L2 3. Dysarthria 4. Hypertension 5. History of recent lumbar surgery Recommendation: It does appear patient had a cerebrovascular accident even though testing does not confirm this. Patient may have had a small stroke in the brainstem which was not picked up on testing. As for his left lower extremity weakness, I had ordered a stat CT with and without contrast of the lumbar spine which showed a grade 2 spondylolisthesis of L2 and L5 anterior on S1. There is also broad-based disc bulging of L1, L2 and L2, L3 with mild anterior thecal sac compression. Dr. Egan will be consulted for evaluation. CTA of the brain and neck was negative for any abnormality. CT of the brain showed no acute intracranial abnormality. EEG was done and results are pending. His fasting lipid panel showed elevated triglycerides of 189 and low HDL of 23. Continue statin therapy. Serum homocysteine level is pending. I recommend PT OT to continue. Continue Plavix 75 mg by mouth daily. I will continue to follow with you. Further recommendations to follow. I performed an examination of the patient and discussed the management with the ROBOT DESIGNER. I have reviewed the ROBOT DESIGNER notes and agree with the findings and plan of care.
[2018-08-08] MEDS: ATORVASTATIN 20 MG TAB PO SCH (17:34)
[2018-08-08 20:26] LABS: Glucose,Whole Blood 190 mg/dL (75-99)
[2018-08-08] MEDS: PANTOPRAZOLE 40 MG TABLET PO SCH (21:56)
[2018-08-09] MEDS: LORATADINE-PSEUDOEPH 5-120 MG 1 EACH TAB.ER.12H PO SCH ×2 (00:03→08:42)
[2018-08-09] MEDS: HYDROmorphone 1 MG/ML 1 ML SYRINGE IVP PRN ×5 (00:03→17:03)
[2018-08-09 05:54] LABS: Glucose,Whole Blood 153 mg/dL (75-99)
[2018-08-09] MEDS: INSULIN ASPART 100 UNIT/ML 1 ML 10 ML VIAL SQ SCH ×3 (06:45→17:09)
[2018-08-09] MEDS: FLUTICASONE 110 MCG INHALER INHALATION SCH (07:48)
[2018-08-09] MEDS: CYCLOBENZAPRINE 10 MG TAB PO SCH (08:41)
[2018-08-09] MEDS: CLOPIDOGREL 75 MG TAB PO SCH (08:41)
[2018-08-09] MEDS: PREGABALIN 100 MG CAP PO SCH ×2 (08:41→17:02)
[2018-08-09] MEDS: METOPROLOL TARTRATE 50 MG TAB PO SCH (08:42)
[2018-08-09] MEDS: POTASSIUM CHLORIDE ER 10 MEQ TAB.ER.PRT PO SCH (08:42)
[2018-08-09] MEDS: LISINOPRIL 10 MG TAB PO SCH (08:42)
[2018-08-09] MEDS: GABAPENTIN 400 MG CAP PO SCH ×3 (08:42→17:02)
[2018-08-09] MEDS: POLYETHYLENE GLYCOL 3350 17 GM POWD.PACK PO SCH (08:42)
[2018-08-09] MEDS: HEPARIN SODIUM,PORCINE 5,000 UNIT/ML 1 ML VIAL SQ SCH (08:42)
[2018-08-09] MEDS: metFORMIN 500 MG TAB PO SCH (08:42)
[2018-08-09] MEDS: LINAGLIPTIN 5 MG TABLET PO SCH (08:42)
[2018-08-09] MEDS: IBUPROFEN 800 MG TAB PO SCH ×2 (08:42→17:01)
[2018-08-09 10:53] VITALS: RESP 16
[2018-08-09 12:08] LABS: Glucose,Whole Blood 142 mg/dL (75-99)
[2018-08-09] MEDS: CHOLECALCIFEROL 1,000 UNIT TAB PO SCH (12:48)
--- NOTE | 2018-08-09 16:06 | P.PN ---
Subjective Progress Note Date: 08/09/18 Principal diagnosis: Stroke Oncoming neurology provider assuming coverage for neurology service taking over care and management of this patient today from offgoing provider in our group in conjunction with supervising physician, Dr Parker. Neurology is following a 52-year-old male for left lower extremity weakness and dysarthria. past history of DVT, PE and TIA. Patient was previously not on Coumadin but was using aspirin in the home setting. Patient does have history of previous lumbar surgery with revision approximately May 2018. Original fusion involved L3-L5 levels. Patient then had additional hardware placed in approximately May 2018. Revision involved the L1-L2 levels per patient. Patient was in rehab following surgery. Patient then returned to the home setting for approximately 10 days and began experiencing left lower extremity weakness and intermittent slurred speech. she reports that the dysarthria resolved however the lower extremity weakness did not resolve. Patient was brought to [facility] for further evaluation. CT of the brain showed no acute intracranial abnormality. Carotid Doppler showed no hemodynamically significant stenosis. MRI of the brain showed no areas of restricted diffusion to indicate acute infarct. CT angio of the head and neck were negative for any abnormality. On 08/08/18, Ortho spine surgeon was consulted for evaluation of the patient's CT lumbar spine results for consideration with regard to patient's presentation and symptoms/deficits given the lack of definitive [employer] imaging to account for patient's presentation. Ct Lumbar spine w and wo contrast noted T11-T12 unremarkable, T12-L1 small amount of ligamentous calcification may be present posterior to the disc space. L1-L2 broad-based disc bulge present with mild anterior thecal sac impression. L2-L3 broad-based disc bulge with mild anterior thecal sac compression, facet hypertrophy is present, facet hypertrophy and ligamentum flavum laxity is present. Mild spinal canal narrowing may be present. L3-4 pedicle screws are present L3. Disc changes with disc spacer performed. No spinal canal stenosis is evident. Facet degenerative changes are present. L4- 5 pedicle screws are present at L4 and L5. Disc height appears preserved. Spinal canal stenosis is not evident. L5-S1 grade 2 spondylolisthesis of L5 anterior on S1. No spinal canal stenosis is present. Laminectomies performed. Body alignment is normal. Notations per radiologist. On contact today, the patient was AOx3, seated in bedside chair resting in no acute distress. Objective - Vital Signs Vital signs: Vital Signs Temp 97.8 F 08/09/18 12:00 Pulse 88 08/09/18 12:00 Resp 16 08/09/18 12:00 BP 120/68 08/09/18 12:00 Pulse Ox 98 08/09/18 12:00 Intake & Output 08/08/18 08/09/18 08/09/18 18:59 06:59 18:59 Intake Total 702 480 Output Total 700 1500 Balance 2 -1020 Weight 123.7 kg Intake: Oral 702 480 Output: Urine 700 1500 Other: Voiding Method Urinal Urinal # Voids 1 1 1 - Exam General appearance: Alert & oriented x3, no apparent distress. Head: Atraumatic, normocephalic, normal inspection Eyes: Well appearance, PERRLA, EOMI. Absent scleral icterus, conjunctival injection, nystagmus, periorbital swelling. Ear, nose and throat: Normal exam, mucous membranes moist Neck: Normal inspection, absent tenderness, lymphadenopathy. Respiratory: No increased work of breathing Cardiovascular: Regular rate, rhythm GI/abdominal: No guarding Extremities: normal capillary refill, no tenderness, pedal edema joint swelling , calf tenderness. Neurological: cranial nerves II through XII intact unilateralizing weakness-left lower extremity no seizure activity noted on physical exam no pronator drift and no nystagmus. Left lower extremity: 3/5 Right lower extremity: 5/5 Left upper extremity: 5/5 Right upper extremity:5 /5 Sensation: Left lower extremity: normal Right lower extremity: normal Left upper extremity: normal Right upper extremity:normal Psychological: Mood and Affect appropriate for setting - Labs CBC & Chem 7: 08/06/18 05:40 08/06/18 05:40 Labs: Abnormal Lab Results - Last 24 Hours (Table) 08/08/18 08/08/18 08/09/18 Range/Units 16:17 20:23 05:51 POC Glucose (mg/dL) 146 H 190 H 153 H (75-99) mg/dL 08/09/18 Range/Units 12:07 POC Glucose (mg/dL) 142 H (75-99) mg/dL Assessment and Plan (1) Cerebrovascular accident Current Visit: Yes Status: Acute Code(s): I63.9 - CEREBRAL INFARCTION, UNSPECIFIED SNOMED Code(s): 706631386 (2) Weakness Current Visit: No Status: Acute Code(s): R53.1 - WEAKNESS SNOMED Code(s): 17569763 (3) History of lumbar fusion Current Visit: Yes Status: Acute Code(s): Z98.1 - ARTHRODESIS STATUS SNOMED Code(s): 327225631 Plan: 1. CVA 2. Lower extremity weakness 3. History of lumbar fusion with revision Although patient does have inconclusive [employer] imaging at this time to reflect acute CVA, the patient's symptoms and deficits are highly consistent with acute CVA. Recommend PT, OT and rehab placement at this time. Continue Plavix, Lipitor and existing dose and frequency as implement them prior to discharge. Continue risk reduction with ongoing medication management and further surveillance in the outpatient setting with primary care provider and neurology. Recommend evaluation by surgeon of record at surgical facility of record with appropriate transfer to that facility prior to discharge to rehabilitation facility for evaluation of the patient's lumbar CT with regard to the patient's lower extremity deficit given the patient's recent lumbar revision and the lack of comparative imaging studies for evaluation and consideration with regard to contributory etiology. Continue gabapentin at existing dose and frequency for nerve related complaints and pain. Patient to follow up with neurology in the outpatient setting within 14 days once discharged for CVA follow up. Patient to follow up with surgeon of record for lumbar related follow up. I have discussed the plan of care with the physician prior to implementation and he agrees with the plan as implemented.
[2018-08-09 16:48] VITALS: BP 118/77; PULSE 90; TEMP 98
[2018-08-09] MEDS: ATORVASTATIN 20 MG TAB PO SCH (17:02)
== END 2018-08-09 17:17 | DRG 64 ==
LOC: EC 17:07 → 3SCARD 20:04
PROVIDERS: ADMIT Family Medicine; ATTEND Family Medicine
DX: I63.519 Cerebral infarction due to unspecified occlusion or stenosis of unspecified middle cerebral artery (principal); J18.9 Pneumonia, unspecified organism; G81.94 Hemiplegia, unspecified affecting left nondominant side; J44.0 Chronic obstructive pulmonary disease with (acute) lower respiratory infection; E66.9 Obesity, unspecified; R29.810 Facial weakness; R29.706 NIHSS score 6; E86.0 Dehydration; R47.1 Dysarthria and anarthria; G47.33 Obstructive sleep apnea (adult) (pediatric); G25.81 Restless legs syndrome; F17.210 Nicotine dependence, cigarettes, uncomplicated; I25.10 Atherosclerotic heart disease of native coronary artery without angina pectoris; G40.909 Epilepsy, unspecified, not intractable, without status epilepticus; K21.9 Gastro-esophageal reflux disease without esophagitis; E11.40 Type 2 diabetes mellitus with diabetic neuropathy, unspecified; E78.5 Hyperlipidemia, unspecified; M43.16 Spondylolisthesis, lumbar region; I10 Essential (primary) hypertension; M19.90 Unspecified osteoarthritis, unspecified site; I25.2 Old myocardial infarction; Z86.718 Personal history of other venous thrombosis and embolism; Z86.711 Personal history of pulmonary embolism; Z79.82 Long term (current) use of aspirin; Z86.73 Personal history of transient ischemic attack (TIA), and cerebral infarction without residual deficits; Z79.84 Long term (current) use of oral hypoglycemic drugs; Z79.1 Long term (current) use of non-steroidal anti-inflammatories (NSAID); Z79.899 Other long term (current) drug therapy; Z79.51 Long term (current) use of inhaled steroids; Z98.1 Arthrodesis status; Z82.49 Family history of ischemic heart disease and other diseases of the circulatory system; Z82.0 Family history of epilepsy and other diseases of the nervous system; Z79.4 Long term (current) use of insulin; Z79.02 Long term (current) use of antithrombotics/antiplatelets; Z71.6 Tobacco abuse counseling
CPT/HCPCS: 36415; 70450; 70496; 70498; 70544; 70551; 71046; 72133; 80048; 80053; 80061; 80306; 81003; 82550; 82553; 83036; 83090; 84484; 85025; 85610; 85730; 93005; 93306; 93880; 94640; 95819; 96361; 96374; 96375; 96376; 99285

== ENCOUNTER 2019-03-28 16:59 | Emergency (ER) | payer MEDICARE, OTHER ==
[2019-03-28 17:07] VITALS: BP 115/76; PULSE 67; RESP 17; TEMP 98.2
[2019-03-28] MEDS ORDERED: GABAPENTIN 400 MG CAP PO STA (17:26)
--- NOTE | 2019-03-28 17:51 | ED ---
Psych HPI - General Chief Complaint: Psychiatric Symptoms Stated Complaint: Mental health Time Seen by Provider: 03/28/19 17:09 Source: patient, EMS, RN notes reviewed Mode of arrival: EMS Limitations: no limitations - History of Present Illness Initial Comments: 53-year-old male presents emergency Department from [facility] for psychiatric evaluation. Patient states that he's been a [facility] for eczema 10 days after lobectomy for lung cancer. Patient states he has been a [facility] for rehab for multiple reasons. Patient states that he does not want to be on opiates. Helping his pain and causing constipation though he states his chronic back pain which she's had multiple surgeries and recent had lung surgery with rib fractures. Patient states that he been asking see a psychiatrist which she has been denied and he states that he did tell staff that he does not feel safe going home but he denies seeing that he was suicidal. Patient states he denies being suicidal at this time denies any homicidal no drug or alcohol abuse. - Related Data Home Medications Medication Instructions Recorded Confirmed Gabapentin 800 mg PO QID 07/24/15 03/28/19 Ibuprofen [Motrin] 800 mg PO TID 07/24/15 03/28/19 Omeprazole [PriLOSEC] 20 mg PO HS 07/24/15 03/28/19 Potassium Chloride [Klor-Con 10] 10 meq PO DAILY 07/24/15 03/28/19 metFORMIN HCL 1,000 mg PO BID 07/24/15 03/28/19 Aspirin [Adult Low Dose Aspirin EC] 81 mg PO DAILY 07/31/15 03/28/19 rOPINIRole HCL [Requip] 2 mg PO TID 03/18/16 03/28/19 sitaGLIPtin [Januvia] 100 mg PO DAILY 01/11/18 03/28/19 Atorvastatin [Lipitor] 20 mg PO DAILY 03/28/19 03/28/19 Baclofen [Lioresal] 10 mg PO QID 03/28/19 03/28/19 Diazepam [Valium] 5 mg PO TID 03/28/19 03/28/19 HYDROmorphone [Dilaudid] 4 mg PO Q6H PRN 03/28/19 03/28/19 INSULIN ASPART (NovoLOG) [NovoLOG See Protocol SQ ACHS 03/28/19 03/28/19 (formulary)] Insulin Detemir (Levemir) [Levemir] 20 unit SQ DAILY 03/28/19 03/28/19 Lisinopril [Zestril] 5 mg PO DAILY 03/28/19 03/28/19 Loratadine-Pseudoeph 5-120 mg 1 tab PO Q12HR 03/28/19 03/28/19 [Claritin-D 12 HR] Metoprolol Tartrate [Lopressor] 75 mg PO BID 03/28/19 03/28/19 Sertraline HCl [Zoloft] 25 mg PO BID 03/28/19 03/28/19 levETIRAcetam [Keppra] 1,500 mg PO BID 03/28/19 03/28/19 Allergies Allergy/AdvReac Type Severity Reaction Status Date / Time No Known Allergies Allergy Verified 03/28/19 17:31 Review of Systems ROS Statement: Those systems with pertinent positive or pertinent negative responses have been documented in the HPI. ROS Other: All systems not noted in ROS Statement are negative. Past Medical History Past Medical History: Coronary Artery Disease (CAD), Cancer, COPD, Diabetes Mellitus, GERD/Reflux, Hyperlipidemia, Hypertension, Myocardial Infarction ([place]), Osteoarthritis (OA), Seizure Disorder, Sleep Apnea/CPAP/BIPAP Additional Past Medical History / Comment(s): LAST SEIZURE 2008; lumbar radiculopathy; neuropathy; no CPAP needed per recent sleep study Last Myocardial Infarction Date:: 10/22/10 History of Any Multi-Drug Resistant Organisms: None Reported Past Surgical History: Back Surgery, Cholecystectomy, Heart Catheterization With Stent Additional Past Surgical History / Comment(s): LAMINECTOMY ,fusion,spinal stimu lator LEFT SHOULDER sx, 07-31-15 revison thoracic laminectomy t10-t11/removal of neuro stimulator and wires removed, fused L1&2 to a cage fusion that was previously put in to L3,4,5. May 27/2018. lobectomy of right middle lung Past Anesthesia/Blood Transfusion Reactions: No Reported Reaction Date of Last Stent Placement:: 10/22/10 Past Psychological History: Depression Smoking Status: Former smoker Past Alcohol Use History: None Reported Past Drug Use History: Marijuana - Past Family History Brother(s) Family Medical History: Deep Vein Thrombosis (DVT) Mother Family Medical History: Osteoarthritis (OA) Additional Family Medical History / Comment(s): psoriases, Parkinsons Father Family Medical History: Coronary Artery Disease (CAD) Additional Family Medical History / Comment(s): heart problems- quad bypass, General Exam Limitations: physical limitation General appearance: alert, in no apparent distress Head exam: Present: atraumatic, normocephalic, normal inspection Eye exam: Present: normal appearance, PERRL, EOMI. Absent: scleral icterus, conjunctival injection, periorbital swelling ENT exam: Present: normal exam, normal oropharynx, mucous membranes moist Neck exam: Present: normal inspection, full ROM. Absent: tenderness, meningismus, lymphadenopathy Respiratory exam: Present: normal lung sounds bilaterally, chest wall tenderness. Absent: respiratory distress, wheezes, rales, rhonchi, stridor Cardiovascular Exam: Present: regular rate, normal rhythm, normal heart sounds. Absent: systolic murmur, diastolic murmur, rubs, gallop, clicks GI/Abdominal exam: Present: soft, normal bowel sounds. Absent: distended, tenderness, guarding, rebound, rigid Neurological exam: Present: alert, oriented X3, CN II-XII intact Psychiatric exam: Present: depressed Skin exam: Present: warm, dry, intact, normal color. Absent: rash Course Vital Signs 03/28/19 17:04 Temperature 98.2 F Pulse Rate 67 Respiratory 17 Rate Blood Pressure 115/76 O2 Sat by Pulse 98 Oximetry Medical Decision Making - Medical Decision Making 53-year-old male presents emergency Department for psychiatric evaluation. Patient's did have evaluation by EPS and case discussed with psychiatrist. Patient recommended to possibly increased Zoloft, patient is not suicidal or homicidal. Patient will be discharged return parameters were discussed. - Lab Data Lab Results 03/28/19 Range/Units 17:35 Urine Opiates Screen Not Detected (NotDetected) Ur Oxycodone Screen Detected H (NotDetected) Urine Methadone Screen Not Detected (NotDetected) Ur Propoxyphene Screen Not Detected (NotDetected) Ur Barbiturates Screen Not Detected (NotDetected) U Tricyclic Antidepress Not Detected (NotDetected) Ur Phencyclidine Scrn Not Detected (NotDetected) Ur Amphetamines Screen Not Detected (NotDetected) U Methamphetamines Scrn Not Detected (NotDetected) U Benzodiazepines Scrn Detected H (NotDetected) Urine Cocaine Screen Not Detected (NotDetected) U Marijuana (THC) Screen Detected H (NotDetected) Disposition Clinical Impression: Depression Disposition: HOME SELF-CARE Condition: Stable Instructions (If sedation given, give patient instructions): Depression (ED) Additional Instructions: Please return to the Emergency Department if symptoms worsen or any other concerns. Is patient prescribed a controlled substance at d/c from ED?: No Referrals: Pietro Rosas MD [Primary Care Provider] - 1-2 days Time of Disposition: 18:57
[2019-03-28 18:00] LABS: Amphetamine Screen,Urine Not Detected (NotDetected); Barbiturate Screen,Urine Not Detected (NotDetected); Benzodiazepines Screen,Urine Detected (NotDetected); Cocaine Screen,Urine Not Detected (NotDetected); Methadone Screen, Urine Not Detected (NotDetected); Opiate Screen,Urine Not Detected (NotDetected); Oxycodone Screen, Urine Detected (NotDetected); Phencyclidine Screen,Urine Not Detected (NotDetected); Tricyclic Antidepressant,Urine Not Detected (NotDetected); Urn Cannabinoid Scrn Detected (NotDetected)
[2019-03-28] MEDS ORDERED: IBUPROFEN 600 MG TAB PO STA (18:36)
== END 2019-03-28 19:21 | disposition home or self-care (01) ==
LOC: EC 16:59
DX: F32.9 Major depressive disorder, single episode, unspecified (principal); L30.9 Dermatitis, unspecified; K59.00 Constipation, unspecified; E11.40 Type 2 diabetes mellitus with diabetic neuropathy, unspecified; K21.9 Gastro-esophageal reflux disease without esophagitis; I25.10 Atherosclerotic heart disease of native coronary artery without angina pectoris; G40.909 Epilepsy, unspecified, not intractable, without status epilepticus; M19.90 Unspecified osteoarthritis, unspecified site; I25.2 Old myocardial infarction; E78.5 Hyperlipidemia, unspecified; I10 Essential (primary) hypertension; Z79.899 Other long term (current) drug therapy; Z79.82 Long term (current) use of aspirin; Z79.4 Long term (current) use of insulin; Z87.891 Personal history of nicotine dependence; Z79.1 Long term (current) use of non-steroidal anti-inflammatories (NSAID); Z95.5 Presence of coronary angioplasty implant and graft; Z98.1 Arthrodesis status; Z96.698 Presence of other orthopedic joint implants; Z85.118 Personal history of other malignant neoplasm of bronchus and lung; Z90.2 Acquired absence of lung [part of]; Z82.0 Family history of epilepsy and other diseases of the nervous system
CPT/HCPCS: 80306; 82075; 99284

== ENCOUNTER 2019-05-30 11:24 | Emergency (ER) | payer MEDICARE, OTHER ==
[2019-05-30] MEDS ORDERED: SODIUM CHLORIDE 0.9% 1,000 ML IV STA ×2 (11:30)
[2019-05-30 11:31] VITALS: BP 112/80
--- NOTE | 2019-05-30 11:54 | ED ---
Seizure HPI - General Chief Complaint: Seizure Stated Complaint: Seizures Time Seen by Provider: 05/30/19 11:25 Source: EMS, RN notes reviewed, old records reviewed Mode of arrival: EMS Limitations: altered mental status, physical limitation - History of Present Illness Initial Comments: This is a 53-year-old male to ER for evaluation of seizure. Patient is currently postictal with significant amount of benzodiazepines on board due to seizure cessation. Patient has history of CVA, recent history of lung CVA, recent seizure disorder on Keppra. Per records patient is taking medications as prescribed. Patient again currently postictal unable to give history. History. From EMS patient's charting. Patient is coming from recently carefully. Elpidio fernandez had generalized seizure prior to arrival of EMS, was given Ativan, EMS noted continued seizure and gave Versed 2. Patient's seizure at that time stopped MD Complaint: seizure, shaking -: days(s) Description of Episode: tonic-clonic movement -: minutes(s) Witnessed: yes - by bystander, yes - by EMS Trauma: No Seizure History: known seizure disorder Place: other ( [facility]) Possible Precipitating Event: none Associated Symptoms: denies other symptoms Treatments Prior to Arrival: benzodiazepines - Related Data Home Medications Medication Instructions Recorded Confirmed Gabapentin 800 mg PO QID 07/24/15 05/30/19 Omeprazole [PriLOSEC] 20 mg PO DAILY@0600 07/24/15 05/30/19 Potassium Chloride [Klor-Con 10] 10 meq PO DAILY 07/24/15 05/30/19 metFORMIN HCL 1,000 mg PO BID@0800,1700 07/24/15 05/30/19 Aspirin [Adult Low Dose Aspirin EC] 81 mg PO DAILY 07/31/15 05/30/19 Atorvastatin [Lipitor] 20 mg PO HS 03/28/19 05/30/19 Baclofen [Lioresal] 10 mg PO QID 03/28/19 05/30/19 Lisinopril [Zestril] 5 mg PO DAILY 03/28/19 05/30/19 Loratadine-Pseudoeph 5-120 mg 1 tab PO BID@0600,1400 03/28/19 05/30/19 [Claritin-D 12 HR] Metoprolol Tartrate [Lopressor] 75 mg PO BID 03/28/19 05/30/19 Sertraline HCl [Zoloft] 75 mg PO HS 03/28/19 05/30/19 levETIRAcetam [Keppra] 1,500 mg PO BID 03/28/19 05/30/19 Acetaminophen [Tylenol] 650 mg PO Q6H PRN 05/30/19 05/30/19 Fluticasone Nasal [place] [Flonase 1 spray EA NOSTRIL BID 05/30/19 05/30/19 Nasal [place]] Hydrocodone/Acetaminophen [[place] 1 tab PO TID PRN 05/30/19 05/30/19 7.5-325] INSULIN LISPRO (humaLOG) [humaLOG] See Protocol SQ AC-TID 05/30/19 05/30/19 Insulin Glargine,Hum.rec.anlog 10 unit SQ HS 05/30/19 05/30/19 [Basaglar Kwikpen U-100] Ipratropium [place] [Ipratropium 1 sprays EA NOSTRIL TID-W/MEALS 05/30/19 05/30/19 [place] 0.03%] Linagliptin [Tradjenta] 5 mg PO DAILY 05/30/19 05/30/19 Melatonin 5 mg PO HS PRN 05/30/19 05/30/19 Midodrine HCl [ProAmatine] 10 mg PO TID 05/30/19 05/30/19 Polyethylene Glycol 3350 [Miralax] 17 gm PO DAILY 05/30/19 05/30/19 Promethazine [Phenergan] 25 mg PO TID PRN 05/30/19 05/30/19 rOPINIRole HCL [Requip] 3 mg PO TID 05/30/19 05/30/19 Allergies Allergy/AdvReac Type Severity Reaction Status Date / Time No Known Allergies Allergy Verified 05/30/19 11:41 Review of Systems ROS Statement: Those systems with pertinent positive or pertinent negative responses have been documented in the HPI. ROS Other: All systems not noted in ROS Statement are negative. Past Medical History Past Medical History: Coronary Artery Disease (CAD), Cancer, COPD, Diabetes Mellitus, GERD/Reflux, Hyperlipidemia, Hypertension, Myocardial Infarction ([place]), Osteoarthritis (OA), Seizure Disorder, Sleep Apnea/CPAP/BIPAP Additional Past Medical History / Comment(s): LAST SEIZURE 2019; lumbar radiculopathy; neuropathy; no CPAP needed per recent sleep study Last Myocardial Infarction Date:: 10/22/10 History of Any Multi-Drug Resistant Organisms: None Reported Past Surgical History: Back Surgery, Cholecystectomy, Heart Catheterization With Stent Additional Past Surgical History / Comment(s): LAMINECTOMY ,fusion,spinal stimulator LEFT SHOULDER sx, 07-31-15 [facility] thoracic laminectomy t10- t11/removal of neuro stimulator and wires removed, fused L1&2 to a cage fusion that was previously put in to L3,4,5. May 27/2018. lobectomy of right middle lung Past Anesthesia/Blood Transfusion Reactions: No Reported Reaction Date of Last Stent Placement:: 10/22/10 Past Psychological History: Depression Smoking Status: Former smoker Past Alcohol Use History: None Reported Past Drug Use History: Marijuana - Past Family History Brother(s) Family Medical History: Deep Vein Thrombosis (DVT) Mother Family Medical History: Osteoarthritis (OA) Additional Family Medical History / Comment(s): psoriases, Parkinsons Father Family Medical History: Coronary Artery Disease (CAD) Additional Family Medical History / Comment(s): heart problems- quad bypass, General Exam Limitations: physical limitation General appearance: alert, in no apparent distress, lethargic Head exam: Present: atraumatic, normocephalic, normal inspection Eye exam: Present: normal appearance, EOMI. Absent: scleral icterus, conjunctival injection, periorbital swelling ENT exam: Present: normal exam, mucous membranes moist Neck exam: Present: normal inspection. Absent: tenderness, meningismus, lymphadenopathy Respiratory exam: Present: normal lung sounds bilaterally. Absent: respiratory distress, wheezes, rales, rhonchi, stridor Cardiovascular Exam: Present: regular rate, normal rhythm, normal heart sounds. Absent: systolic murmur, diastolic murmur, rubs, gallop, clicks GI/Abdominal exam: Present: soft, normal bowel sounds. Absent: distended, ten derness, guarding, rebound, rigid Extremities exam: Present: normal inspection, full ROM, normal capillary refill. Absent: tenderness, pedal edema, joint swelling, calf tenderness Back exam: Present: normal inspection Neurological exam: Present: alert, oriented X3 Psychiatric exam: Present: normal affect, normal mood, flat affect Skin exam: Present: warm, dry, intact, normal color. Absent: rash Course Vital Signs 05/30/19 05/30/19 11:26 13:20 Temperature 97.9 F Pulse Rate 79 67 Respiratory 16 18 Rate Blood Pressure 112/80 O2 Sat by Pulse 97 98 Oximetry - Reevaluation(s) Reevaluation #1: 05/30/19 11:54 Medical record reviewed, patient has complicated recent hospitalization, complicated by CVA and seizure currently on Keppra Reevaluation #2: 05/30/19 14:00 Spoke with patient, patient's family, parents at length answer questions Reevaluation #3: 05/30/19 14:00 Patient remains very somnolent likely secondary to Versed and Ativan given, he is arousable, will continue to watch patient - Consultations Consultation #1: With Dr. Handy regarding patient, he does recommend increasing Ativan as an outpatient and he will direct outpatient neurology consult Medical Decision Making - Medical Decision Making 53 male the ER for evaluation of this in for evaluation regards to seizure. Patient seizure symptoms resolved prior to arrival in ER, patient currently awake alert and can be discharged back to a extended care facility - Lab Data Result diagrams: 05/30/19 11:55 05/30/19 11:55 Lab Results 05/30/19 05/30/19 05/30/19 Range/Units 11:55 11:55 12:00 WBC 7.1 (3.8-10.6) k/uL RBC 4.08 L (4.30-5.90) m/uL Hgb 11.5 L (13.0-17.5) gm/dL Hct 34.4 L (39.0-53.0) % MCV 84.3 (80.0-100.0) fL MCH 28.2 (25.0-35.0) pg MCHC 33.4 (31.0-37.0) g/dL RDW 15.2 (11.5-15.5) % Plt Count 219 (150-450) k/uL Neutrophils % 70 % Lymphocytes % 21 % Monocytes % 4 % Eosinophils % 2 % Basophils % 1 % Neutrophils # 4.9 (1.3-7.7) k/uL Lymphocytes # 1.5 (1.0-4.8) k/uL Monocytes # 0.3 (0-1.0) k/uL Eosinophils # 0.1 (0-0.7) k/uL Basophils # 0.0 (0-0.2) k/uL Sodium 141 (137-145) mmol/L Potassium 4.2 (3.5-5.1) mmol/L Chloride 105 (98-107) mmol/L Carbon Dioxide 25 (22-30) mmol/L Anion Gap 11 mmol/L BUN 10 (9-20) mg/dL Creatinine 0.53 L (0.66-1.25) mg/dL Est GFR (CKD-EPI)AfAm >90 (>60 ml/min/1.73 sqM) Est GFR (CKD-EPI)NonAf >90 (>60 ml/min/1.73 sqM) Glucose 100 H (74-99) mg/dL Calcium 9.2 (8.4-10.2) mg/dL Phosphorus 4.1 (2.5-4.5) mg/dL Magnesium 1.7 (1.6-2.3) mg/dL Total Bilirubin 0.6 (0.2-1.3) mg/dL AST 21 (17-59) U/L ALT 27 (21-72) U/L Alkaline Phosphatase 45 (38-126) U/L Total Protein 6.2 L (6.3-8.2) g/dL Albumin 3.9 (3.5-5.0) g/dL Urine Color Yellow Urine Appearance Clear (Clear) Urine pH 5.5 (5.0-8.0) Ur Specific [place] 1.011 (1.001-1.035) Urine Protein Negative (Negative) Urine Glucose (UA) Negative (Negative) Urine Ketones Negative (Negative) Urine Blood Negative (Negative) Urine Nitrite Negative (Negative) Urine Bilirubin Negative (Negative) Urine Urobilinogen <2.0 (<2.0) mg/dL Ur Leukocyte Esterase Negative (Negative) Salicylates <1.0 mg/dL Urine Opiates Screen Detected H (NotDetected) Ur Oxycodone Screen Not Detected (NotDetected) Urine Methadone Screen Not Detected (NotDetected) Ur Propoxyphene Screen Not Detected (NotDetected) Acetaminophen <10.0 ug/mL Ur Barbiturates Screen Not Detected (NotDetected) U Tricyclic Antidepress Not Detected (NotDetected) Ur Phencyclidine Scrn Not Detected (NotDetected) Ur Amphetamines Screen Not Detected (NotDetected) U Methamphetamines Scrn Not Detected (NotDetected) U Benzodiazepines Scrn Detected H (NotDetected) Urine Cocaine Screen Not Detected (NotDetected) U Marijuana (THC) Screen Detected H (NotDetected) Serum Alcohol <10 mg/dL - EKG Data -: EKG Interpreted by Me (EKG shows sinus rhythm rate of 60, DE 174, QRS 96, QTc 412) - Radiology Data Radiology results: report reviewed (CT brain negative for acute disease), image reviewed Disposition Clinical Impression: Epileptic seizure, generalized, Recurrent seizures Disposition: HOME SELF-CARE Condition: Good Instructions (If sedation given, give patient instructions): Recurrent Seizures in Adults (ED) Is patient prescribed a controlled substance at d/c from ED?: No Referrals: Radha Ortiz MD [Primary Care Provider] - 1-2 days
[2019-05-30 12:07] LABS: Basophils % (A) 1 %; Eosinophils # (A) 0.1 k/uL (0-0.7); Eosinophils % (A) 2 %; HCT 34.4 % (39.0-53.0); HGB 11.5 gm/dL (13.0-17.5); Lymphocytes # (A) 1.5 k/uL (1.0-4.8); Lymphocytes % (A) 21 %; MCH 28.2 pg (25.0-35.0); MCHC 33.4 g/dL (31.0-37.0); MCV 84.3 fL (80.0-100.0); Mean Platelet Volume 6.9; Monocytes # (A) 0.3 k/uL (0-1.0); Monocytes % (A) 4 %; Neutrophils # (A) 4.9 k/uL (1.3-7.7); Neutrophils % (A) 70 %; Platelet Count 219 k/uL (150-450); RBC 4.08 m/uL (4.30-5.90); RDW 15.2 % (11.5-15.5); WBC 7.1 k/uL (3.8-10.6)
[2019-05-30 12:17] LABS: ALT 27 U/L (21-72); AST 21 U/L (17-59); Acetaminophen <10.0 ug/mL; African American GFR (CKD) >90 (>60 ml/min/1.73 sqM); Albumin 3.9 g/dL (3.5-5.0); Alcohol <10 mg/dL; Alkaline Phosphatase 45 U/L (38-126); Anion Gap 11 mmol/L; Blood Urea Nitrogen 10 mg/dL (9-20); Calcium 9.2 mg/dL (8.4-10.2); Carbon Dioxide 25 mmol/L (22-30); Chloride 105 mmol/L (98-107); Glucose 100 mg/dL (74-99); Magnesium 1.7 mg/dL (1.6-2.3); Phosphorus 4.1 mg/dL (2.5-4.5); Potassium 4.2 mmol/L (3.5-5.1); Salicylate <1.0 mg/dL; Sodium 141 mmol/L (137-145); Total Bilirubin 0.6 mg/dL (0.2-1.3); Total Protein 6.2 g/dL (6.3-8.2)
--- NOTE | 2019-05-30 12:29 | CT ---
EXAMINATION TYPE: CT brain wo con DATE OF EXAM: 05/30/2019 HISTORY: Seizures CT DLP: 1117.4 mGycm. Automated Exposure Control for Dose Reduction was Utilized. TECHNIQUE: CT scan of the head is performed without contrast. COMPARISON: CT brain August 05, 2018. FINDINGS: There is no acute intracranial hemorrhage or midline shift identified. There is diffuse v entricular and sulcal prominence consistent with diffuse age-related cerebral atrophy. There is low- attenuation in the periventricular white matter consistent with chronic small vessel ischemic change. The globes are intact and the visualized sinuses are clear. Remote fracture to the nasal bridge r edemonstrated on axial image 4. Mild calcified plaque supraclinoid segment. IMPRESSION: No acute intracranial hemorrhage or midline shift. There is mild diffuse age-related ce rebral atrophy and chronic small vessel ischemic change redemonstrated. No significant change from c omparison CT.
[2019-05-30 12:36] LABS: Appearance,Urine Clear (Clear); Bilirubin,Urine Negative (Negative); Blood,Urine Negative (Negative); Color,Urine Yellow; Glucose,Urine (UA) Negative (Negative); Ketones,Urine Negative (Negative); Leukocyte Esterase,Urine Negative (Negative); Nitrite,Urine Negative (Negative); PH, Urine 5.5 (5.0-8.0); Protein,Urine Negative (Negative); Specific Gravity,Urine 1.011 (1.001-1.035); Urobilinogen,Urine <2.0 mg/dL (<2.0)
[2019-05-30 12:52] LABS: Cocaine Screen,Urine Not Detected (NotDetected); Phencyclidine Screen,Urine Not Detected (NotDetected); Urn Cannabinoid Scrn Detected (NotDetected)
[2019-05-30 12:53] LABS: Amphetamine Screen,Urine Not Detected (NotDetected); Barbiturate Screen,Urine Not Detected (NotDetected); Benzodiazepines Screen,Urine Detected (NotDetected); Methadone Screen, Urine Not Detected (NotDetected); Opiate Screen,Urine Detected (NotDetected); Oxycodone Screen, Urine Not Detected (NotDetected); Tricyclic Antidepressant,Urine Not Detected (NotDetected)
[2019-05-30 13:27] VITALS: RESP 18
[2019-05-30 15:25] VITALS: PULSE 70; TEMP 98
== END 2019-05-30 15:30 | disposition home or self-care (01) ==
LOC: EC 11:24
DX: G40.409 Other generalized epilepsy and epileptic syndromes, not intractable, without status epilepticus (principal); I25.10 Atherosclerotic heart disease of native coronary artery without angina pectoris; M19.90 Unspecified osteoarthritis, unspecified site; I25.2 Old myocardial infarction; K21.9 Gastro-esophageal reflux disease without esophagitis; I10 Essential (primary) hypertension; F32.9 Major depressive disorder, single episode, unspecified; E78.5 Hyperlipidemia, unspecified; E11.40 Type 2 diabetes mellitus with diabetic neuropathy, unspecified; M54.16 Radiculopathy, lumbar region; Z79.82 Long term (current) use of aspirin; Z79.4 Long term (current) use of insulin; Z79.899 Other long term (current) drug therapy; Z86.73 Personal history of transient ischemic attack (TIA), and cerebral infarction without residual deficits; Z87.891 Personal history of nicotine dependence; Z95.5 Presence of coronary angioplasty implant and graft; Z98.1 Arthrodesis status
CPT/HCPCS: 36415; 93005; 80053; 83735; 84100; 85025; 81003; 80306; 83520; 70450; 99285; 96360; 96361 ×2; G0480 ×2; 80320; 80329

== ENCOUNTER → 2019-07-14 | Outpatient (CLI) | payer MEDICARE, OTHER ==
--- NOTE | 2019-07-14 13:50 | CT ---
EXAMINATION TYPE: CT chest w con DATE OF EXAM: 07/14/2019 COMPARISON: Chest CT August 20, 2011. HISTORY: Lung CA, history of right-sided partial lobectomy. Symptoms of pain from rib resection per p atient. CT DLP: 745.3 mGycm. Automated Exposure Control for Dose Reduction was Utilized. TECHNIQUE: CT scan of the thorax is performed following with IV Contrast, patient injected with 100 mL of Isovue 300. FINDINGS: LUNGS: Surgical sutures right mid lung anteriorly abutting heart border axial image 30 are now presen t. There is some linear scarring in the lingula near left heart border. No suspicious new nodules or masses. Surgical sutures and clips right hilar level. No pleural effusion or pneumothorax. MEDIASTINUM: There are no new greater than 1 cm hilar or mediastinal lymph nodes. No cardiomegaly o r pericardial effusion is seen. Coronary artery calcification and/or stents are present which is note d marked for underlying coronary artery disease. OTHER: There is incomplete healed fracture right posterior eighth rib coronal image 92 with some otilia cent soft tissue heterotopic ossification cholecystectomy clips are present. Splenomegaly again seen measuring 15.6 cm axial image 56. IMPRESSION: No suspicious new mass or adenopathy to suggest neoplastic recurrence.
== END | disposition home or self-care (01) ==
LOC: RADCTMAIN 12:50
PROVIDERS: ATTEND Family Medicine
DX: Z08 Encounter for follow-up examination after completed treatment for malignant neoplasm (principal); Z85.118 Personal history of other malignant neoplasm of bronchus and lung
CPT/HCPCS: 71260; Q9967

== ENCOUNTER 2019-07-21 18:14 | Emergency (ER) | payer MEDICARE, OTHER ==
[2019-07-21 18:19] VITALS: TEMP 98.1
[2019-07-21] MEDS ORDERED: SODIUM CHLORIDE 0.9% 1,000 ML IV STA (18:38)
--- NOTE | 2019-07-21 18:42 | ED ---
General Adult HPI - General Chief complaint: Seizure Stated complaint: seizure Time Seen by Provider: 07/21/19 18:23 Source: EMS, RN notes reviewed Mode of arrival: EMS Limitations: no limitations - History of Present Illness Initial comments: Patient is a 53-year-old male presenting to the emergency department following seizure. Patient reportedly had generalized tonic-clonic seizure activity lasting up to 12 minutes. Patient was given Ativan and then Versed. Patient is drowsy at this time and unable to provide history. Patient does have reported history of previous seizures. - Related Data Home Medications Medication Instructions Recorded Confirmed Gabapentin 800 mg PO QID 07/24/15 05/30/19 Omeprazole [PriLOSEC] 20 mg PO DAILY@0600 07/24/15 05/30/19 Potassium Chloride [Klor-Con 10] 10 meq PO DAILY 07/24/15 05/30/19 metFORMIN HCL 1,000 mg PO BID@0800,1700 07/24/15 05/30/19 Aspirin [Adult Low Dose Aspirin EC] 81 mg PO DAILY 07/31/15 05/30/19 Atorvastatin [Lipitor] 20 mg PO HS 03/28/19 05/30/19 Baclofen [Lioresal] 10 mg PO QID 03/28/19 05/30/19 Lisinopril [Zestril] 5 mg PO DAILY 03/28/19 05/30/19 Loratadine-Pseudoeph 5-120 mg 1 tab PO BID@0600,1400 03/28/19 05/30/19 [Claritin-D 12 HR] Metoprolol Tartrate [Lopressor] 75 mg PO BID 03/28/19 05/30/19 Sertraline HCl [Zoloft] 75 mg PO HS 03/28/19 05/30/19 levETIRAcetam [Keppra] 1,500 mg PO BID 03/28/19 05/30/19 Acetaminophen [Tylenol] 650 mg PO Q6H PRN 05/30/19 05/30/19 Fluticasone Nasal [place] [Flonase 1 spray EA NOSTRIL BID 05/30/19 05/30/19 Nasal [place]] Hydrocodone/Acetaminophen [[place] 1 tab PO TID PRN 05/30/19 05/30/19 7.5-325] INSULIN LISPRO (humaLOG) [humaLOG] See Protocol SQ AC-TID 05/30/19 05/30/19 Insulin Glargine,Hum.rec.anlog 10 unit SQ HS 05/30/19 05/30/19 [Basaglar Lucianopen U-100] Ipratropium [place] [Ipratropium 1 sprays EA NOSTRIL TID-W/MEALS 05/30/19 05/30/19 [place] 0.03%] Linagliptin [Tradjenta] 5 mg PO DAILY 05/30/19 05/30/19 Melatonin 5 mg PO HS PRN 05/30/19 05/30/19 Midodrine HCl [ProAmatine] 10 mg PO TID 05/30/19 05/30/19 Polyethylene Glycol 3350 [Miralax] 17 gm PO DAILY 05/30/19 05/30/19 Promethazine [Phenergan] 25 mg PO TID PRN 05/30/19 05/30/19 rOPINIRole HCL [Requip] 3 mg PO TID 05/30/19 05/30/19 Allergies Allergy/AdvReac Type Severity Reaction Status Date / Time No Known Allergies Allergy Verified 05/30/19 11:41 Review of Systems ROS Statement: Those systems with pertinent positive or pertinent negative responses have been documented in the HPI. ROS Other: All systems not noted in ROS Statement are negative. Limitations: ROS unobtainable due to patients medical condition Past Medical History Past Medical History: Coronary Artery Disease (CAD), Cancer, COPD, Diabetes Mellitus, GERD/Reflux, Hyperlipidemia, Hypertension, Myocardial Infarction ([place]), Osteoarthritis (OA), Seizure Disorder, Sleep Apnea/CPAP/BIPAP Additional Past Medical History / Comment(s): LAST SEIZURE 2018; lumbar radiculopathy; neuropathy; no CPAP needed per recent sleep study Last Myocardial Infarction Date:: 10/22/10 History of Any Multi-Drug Resistant Organisms: None Reported Past Surgical History: Back Surgery, Cholecystectomy, Heart Catheterization With Stent Additional Past Surgical History / Comment(s): LAMINECTOMY ,fusion,spinal stimulator LEFT SHOULDER sx, 07-31-15 revison thoracic laminectomy t10- t11/removal of neuro stimulator and wires removed, fused L1&2 to a cage fusion that was previously put in to L3,4,5. May 27/2018. lobectomy of right middle lung Past Anesthesia/Blood Transfusion Reactions: No Reported Reaction Date of Last Stent Placement:: 10/22/10 Past Psychological History: Depression Smoking Status: Former smoker Past Alcohol Use History: None Reported Past Drug Use History: Marijuana - Past Family History Brother(s) Family Medical History: Deep Vein Thrombosis (DVT) Mother Family Medical History: Osteoarthritis (OA) Additional Family Medical History / Comment(s): psoriases, Parkinsons Father Family Medical History: Coronary Artery Disease (CAD) Additional Family Medical History / Comment(s): heart problems- quad bypass, General Exam Limitations: no limitations General appearance: other (Drowsy. Arousable to sternal rub) Head exam: Present: atraumatic Eye exam: Present: normal appearance, PERRL ENT exam: Present: normal oropharynx Neck exam: Present: normal inspection. Absent: tenderness, meningismus Respiratory exam: Present: normal lung sounds bilaterally Cardiovascular Exam: Present: regular rate, normal rhythm GI/Abdominal exam: Present: soft. Absent: distended, tenderness Extremities exam: Present: normal inspection Neurological exam: Present: other (Drowsy. Arousable to sternal rub. Does not follow commands. Does withdrawal all extremities to pain.) Expanded Eye Response: (2) open to pain Motor Response: (4) withdraws to pain Verbal Response: (3) inappropriate words Skin exam: Present: normal color. Absent: rash Course Vital Signs 07/21/19 07/21/19 18:15 19:48 Temperature 98.1 F Pulse Rate 97 82 Respiratory 16 20 Rate Blood Pressure 104/84 120/79 O2 Sat by Pulse 98 92 L Oximetry Medical Decision Making - Medical Decision Making Patient reevaluated and somewhat improved. Patient is drowsy but arouses to touch. Patient is oriented 2. Case was discussed with Dr. Santana, covering for Dr. Ortiz who does not feel comfortable with admission secondary to no neurology been present. She does recommend transfer. Case was also discussed with Dr. quiroga at [facility], who will accept transfer. - Lab Data Result diagrams: 07/21/19 18:10 07/21/19 18:10 Lab Results 07/21/19 07/21/19 Range/Units 18:10 18:10 WBC 8.5 (3.8-10.6) k/uL RBC 4.20 L (4.30-5.90) m/uL Hgb 12.0 L (13.0-17.5) gm/dL Hct 35.7 L (39.0-53.0) % MCV 85.0 (80.0-100.0) fL MCH 28.5 (25.0-35.0) pg MCHC 33.5 (31.0-37.0) g/dL RDW 14.6 (11.5-15.5) % Plt Count 245 (150-450) k/uL Neutrophils % 69 % Lymphocytes % 21 % Monocytes % 6 % Eosinophils % 1 % Basophils % 1 % Neutrophils # 5.8 (1.3-7.7) k/uL Lymphocytes # 1.8 (1.0-4.8) k/uL Monocytes # 0.5 (0-1.0) k/uL Eosinophils # 0.1 (0-0.7) k/uL Basophils # 0.0 (0-0.2) k/uL Sodium 138 (137-145) mmol/L Potassium 3.8 (3.5-5.1) mmol/L Chloride 100 (98-107) mmol/L Carbon Dioxide 27 (22-30) mmol/L Anion Gap 11 mmol/L BUN 14 (9-20) mg/dL Creatinine 0.45 L (0.66-1.25) mg/dL Est GFR (CKD-EPI)AfAm >90 (>60 ml/min/1.73 sqM) Est GFR (CKD-EPI)NonAf >90 (>60 ml/min/1.73 sqM) Glucose 165 H (74-99) mg/dL Calcium 9.1 (8.4-10.2) mg/dL Total Bilirubin 0.4 (0.2-1.3) mg/dL AST 28 (17-59) U/L ALT 28 (21-72) U/L Alkaline Phosphatase 52 (38-126) U/L Total Protein 6.3 (6.3-8.2) g/dL Albumin 3.9 (3.5-5.0) g/dL Valproic Acid 30.8 ug/mL - Radiology Data Radiology results: report reviewed (ET scan the brain shows no acute process) Disposition Clinical Impression: Generalized seizure Disposition: OTHER INSTITUTION NOT DEFINED Referrals: Radha Ortiz MD [Primary Care Provider] - 1-2 days Time of Disposition: 20:08 - Out of Hospital Transfer - Req. Specs Out of Hospital Transfer - Requested Specifics: Other Emergency Center
[2019-07-21 19:01] LABS: Basophils % (A) 1 %; Eosinophils # (A) 0.1 k/uL (0-0.7); Eosinophils % (A) 1 %; HCT 35.7 % (39.0-53.0); Lymphocytes # (A) 1.8 k/uL (1.0-4.8); Lymphocytes % (A) 21 %; MCH 28.5 pg (25.0-35.0); MCHC 33.5 g/dL (31.0-37.0); Mean Platelet Volume 6.3; Monocytes # (A) 0.5 k/uL (0-1.0); Monocytes % (A) 6 %; Neutrophils # (A) 5.8 k/uL (1.3-7.7); Neutrophils % (A) 69 %; Platelet Count 245 k/uL (150-450); RDW 14.6 % (11.5-15.5); WBC 8.5 k/uL (3.8-10.6)
[2019-07-21 19:12] LABS: ALT 28 U/L (21-72); AST 28 U/L (17-59); African American GFR (CKD) >90 (>60 ml/min/1.73 sqM); Albumin 3.9 g/dL (3.5-5.0); Alkaline Phosphatase 52 U/L (38-126); Anion Gap 11 mmol/L; Blood Urea Nitrogen 14 mg/dL (9-20); Calcium 9.1 mg/dL (8.4-10.2); Carbon Dioxide 27 mmol/L (22-30); Chloride 100 mmol/L (98-107); Glucose 165 mg/dL (74-99); Potassium 3.8 mmol/L (3.5-5.1); Sodium 138 mmol/L (137-145); Total Bilirubin 0.4 mg/dL (0.2-1.3); Total Protein 6.3 g/dL (6.3-8.2)
[2019-07-21] MEDS ORDERED: VALPROATE SODIUM 500 MG in SODIUM CHLORIDE 0.9% 100 ML IVPB STA (19:20)
--- NOTE | 2019-07-21 19:42 | CT ---
EXAMINATION TYPE: CT brain wo con DATE OF EXAM: 07/21/2019 COMPARISON: 05/30/2019 HISTORY: seizure CT DLP: 1145.4 mGycm Automated exposure control for dose reduction was used. FINDINGS: Ventricles have normal size. There is no mass effect nor midline shift. There is no sign of intracran ial hemorrhage. Calvarium is intact. IMPRESSION: NEGATIVE HEAD CT SCAN. NO CHANGE.
[2019-07-21 20:53] VITALS: BP 130/82; PULSE 71; RESP 16
== END 2019-07-21 21:05 | disposition short-term general hospital (02) ==
LOC: EC 18:14
DX: G40.409 Other generalized epilepsy and epileptic syndromes, not intractable, without status epilepticus (principal); R40.0 Somnolence; I25.10 Atherosclerotic heart disease of native coronary artery without angina pectoris; J44.9 Chronic obstructive pulmonary disease, unspecified; E11.40 Type 2 diabetes mellitus with diabetic neuropathy, unspecified; K21.9 Gastro-esophageal reflux disease without esophagitis; E78.5 Hyperlipidemia, unspecified; I10 Essential (primary) hypertension; I25.2 Old myocardial infarction; M19.90 Unspecified osteoarthritis, unspecified site; F32.9 Major depressive disorder, single episode, unspecified; Z87.891 Personal history of nicotine dependence; Z79.4 Long term (current) use of insulin; Z79.51 Long term (current) use of inhaled steroids; Z79.82 Long term (current) use of aspirin; Z79.899 Other long term (current) drug therapy; Z85.9 Personal history of malignant neoplasm, unspecified; Z95.5 Presence of coronary angioplasty implant and graft; Z98.1 Arthrodesis status; Z82.0 Family history of epilepsy and other diseases of the nervous system
CPT/HCPCS: 36415; 70450; 80053; 80164; 80177; 85025; 96361; 96365; 99285

== ENCOUNTER 2019-07-29 06:47 | Emergency (ER) | payer MEDICARE, OTHER ==
[2019-07-29] MEDS ORDERED: SODIUM CHLORIDE 0.9% 1,000 ML IV STA (06:49)
[2019-07-29 06:54] VITALS: TEMP 98.2
[2019-07-29 06:57] LABS: Glucose,Whole Blood 130 mg/dL (75-99)
--- NOTE | 2019-07-29 07:07 | ED ---
Neuro HPI - General Source: EMS Mode of arrival: EMS - History of Present Illness Is the patient presenting with stroke symptoms?: Yes <Pauline Grey - Last Filed: 07/29/19 07:29> <Anthony Torres - Last Filed: 07/29/19 08:51> - General Chief Complaint: Neuro Symptoms/Deficit Stated Complaint: CVA Time Seen by Provider: 07/29/19 06:49 - History of Present Illness Initial Comments: Don is a 53 yo male with extensive past medical history most significant for recurrent seizures, history of lung cancer. Patient is brought to the ER today by EMS with altered mental status as well as arm pain. We're called by [facility] with a report that the patient had fallen out of bed around 2:30 in the morning was complaining of pain in the right arm, they requested x- rays be performed, it is uncertain if they were performed. Upon the reevaluation of the patient this morning the patient was noted to be diaphoretic and hypertensive, they were concerned this may be due to pain and decided to transfer him to the ER via ambulance. EMS reports that upon their arrival they noted the patient had right-sided facial droop and weakness in the left arm and leg. They're concerned patient may be having a stroke and decided transport to the hospital. In route to the hospital patient's mental status is declining. He is somnolent wakes to painful stimuli repeatedly states "I'm okay" provides further limited history. (Pauline Grey) - Related Data Home Medications: Home Medications Medication Instructions Recorded Confirmed Gabapentin 800 mg PO QID 07/24/15 07/21/19 Potassium Chloride [Klor-Con 10] 10 meq PO DAILY@0900 07/24/15 07/21/19 metFORMIN HCL 1,000 mg PO BID@0800,1700 07/24/15 07/21/19 Atorvastatin [Lipitor] 20 mg PO HS@2100 03/28/19 07/21/19 Lisinopril [Zestril] 5 mg PO DAILY 03/28/19 07/21/19 levETIRAcetam [Keppra] 750 mg PO DAILY@1200 03/28/19 07/21/19 Acetaminophen [Tylenol] 650 mg PO Q6H PRN 05/30/19 07/21/19 Insulin Glargine,Hum.rec.anlog 10 unit SQ HS@209905/30/19 07/21/19 [Dennis Osorio U-100] Linagliptin [Tradjenta] 5 mg PO DAILY@0900 05/30/19 07/21/19 Midodrine HCl [ProAmatine] 10 mg PO TID@0900,1300,209905/30/19 07/21/19 rOPINIRole HCL [Requip] 3 mg PO TID@0600,1400,2200 05/30/19 07/21/19 Azelastine HCl [Astepro] 2 spray NASAL BID PRN 07/21/19 07/21/19 Baclofen [Lioresal] 20 mg PO QID 07/21/19 07/21/19 Clopidogrel [Plavix] 75 mg PO DAILY@0607/21/19 07/21/19 Cyclobenzaprine [Flexeril] 5 mg PO TID@0600,1400,22007/21/19 07/21/19 DULoxetine HCL [Cymbalta] 60 mg PO BID@0900,209907/21/19 07/21/19 Divalproex Sodium [Depakote] 500 mg PO TID@0900,1300,209907/21/19 07/21/19 Ergocalciferol [Vitamin D2 50,000 units PO ANDERSON 07/21/19 07/21/19 (DRISDOL)] LORazepam ORAL CONC [Ativan 5 mg IM ONCE PRN 07/21/19 07/21/19 Intensol] Metoprolol Tartrate [Lopressor] 75 mg PO BID@0900,209907/21/19 07/21/19 Montelukast [Singulair] 10 mg PO HS@209907/21/19 07/21/19 Ranitidine HCl [Zantac] 150 mg PO BID@0900,209907/21/19 07/21/19 Sertraline [Zoloft] 50 mg PO DAILY@89907/21/19 07/21/19 diphenhydrAMINE [Benadryl] 25 mg PO Q12H PRN 07/21/19 07/21/19 fentaNYL 75MCG/HR PATCH [Duragesic 75 mcg TRANSDERM Q72H 07/21/19 07/21/19 75MCG/HR] levETIRAcetam [Keppra] 1,500 mg PO BID@0900,2100 07/21/19 07/21/19 oxyCODONE-APAP 10-325MG [Percocet 1 tab PO Q6H PRN 07/21/19 07/21/19 10-325 mg] predniSONE See Taper PO DAILY 07/21/19 07/21/19 traZODone HCL 50 mg PO HS@2200 07/21/19 07/21/19 Allergies/Adverse Reactions: Allergies Allergy/AdvReac Type Severity Reaction Status Date / Time No Known Allergies Allergy Verified 07/21/19 20:44 Review of Systems ROS Other: All systems not noted in ROS Statement are negative. <Pauline Grey - Last Filed: 07/29/19 07:29> ROS Other: All systems not noted in ROS Statement are negative. <Anthony Torres - Last Filed: 07/29/19 08:51> ROS Statement: Those systems with pertinent positive or pertinent negative responses have been documented in the HPI. General Exam <Pauline Grey - Last Filed: 07/29/19 07:29> - General Exam Comments Initial Comments: Physical Exam GENERAL: Chronically illl-appearing HENT: Normocephalic, Atraumatic. EYES: Left pupil 4mm reactive, right pupil 3mm reactive EOMI PULMONARY: Unlabored respirations. No audible rales rhonchi or wheezing was noted. CARDIOVASCULAR: RRR ABDOMEN: Soft and nontender with normal bowel sounds. SKIN: Significant bruising on anterior lower abdomen consistent with recent heparin injections : Deferred NEUROLOGIC: Somnolent, wakes to voice, alert to self MUSCULOSKELETAL: No obvious deformity PSYCHIATRIC: Unable to assess (Pauline Grey) Stroke MDM - Lab Data Result diagrams: 07/29/19 06:54 07/29/19 06:54 - NIH Stroke Scale 1a. Level of Consciousness: (2) not alert, rep stimuli 1b. LOC Questions: (0) answers correctly 2. Best Gaze: (0) normal 3. Visual: (0) no visual loss 4. Facial Palsy: (0) normal symmetrical movement 5a. Motor Arm Left: (2) some gravity effort 5b. Motor Arm Right: (0) no drift 6a. Motor Leg Left: (2) some gravity effort 6b. Motor Leg Right: (0) no drift 7. Limb Ataxia: (0) absent 8. Sensory: (1) mild/moderate sensory loss 9. Best Language: (0) no aphasia 10. Dysarthria: (0) normal 11. Extinction/Inattention: (0) no abnormality - Thrombolytic Inclusion/Exclusion Thrombolytic Inclusion Criteria: Symptom Onset < 4.5 h - EKG Data -: EKG Interpreted by Ia EKG shows normal: sinus rhythm Rate: normal When compared to previous EKG there are: no significant change Interpretation: normal EKG <Pauline Grey - Last Filed: 07/29/19 07:29> - Lab Data Result diagrams: 07/29/19 06:54 07/29/19 06:54 <Anthony Torres - Last Filed: 07/29/19 08:51> - Lab Data Lab Results 07/29/19 07/29/19 07/29/19 Range/Units 06:54 06:54 06:54 WBC 6.8 (3.8-10.6) k/uL RBC 4.26 L (4.30-5.90) m/uL Hgb 12.1 L (13.0-17.5) gm/dL Hct 36.6 L (39.0-53.0) % MCV 85.9 (80.0-100.0) fL MCH 28.5 (25.0-35.0) pg MCHC 33.2 (31.0-37.0) g/dL RDW 14.8 (11.5-15.5) % Plt Count 191 (150-450) k/uL Neutrophils % 73 % Lymphocytes % 18 % Monocytes % 6 % Eosinophils % 1 % Basophils % 1 % Neutrophils # 4.9 (1.3-7.7) k/uL Lymphocytes # 1.2 (1.0-4.8) k/uL Monocytes # 0.4 (0-1.0) k/uL Eosinophils # 0.1 (0-0.7) k/uL Basophils # 0.1 (0-0.2) k/uL PT 9.6 (9.0-12.0) sec INR 0.9 (<1.2) APTT 22.4 (22.0-30.0) sec Sodium 142 (137-145) mmol/L Potassium 4.0 (3.5-5.1) mmol/L Chloride 100 (98-107) mmol/L Carbon Dioxide 35 H (22-30) mmol/L Anion Gap 7 mmol/L BUN 13 (9-20) mg/dL Creatinine 0.64 L (0.66-1.25) mg/dL Est GFR (CKD-EPI)AfAm >90 (>60 ml/min/1.73 sqM) Est GFR (CKD-EPI)NonAf >90 (>60 ml/min/1.73 sqM) Glucose 131 H (74-99) mg/dL POC Glucose (mg/dL) (75-99) mg/dL POC Glu Recreational Director ID Calcium 9.4 (8.4-10.2) mg/dL Total Bilirubin 0.6 (0.2-1.3) mg/dL AST 71 H (17-59) U/L ALT 146 H (21-72) U/L Alkaline Phosphatase 88 (38-126) U/L Troponin I (0.000-0.034) ng/mL Total Protein 6.8 (6.3-8.2) g/dL Albumin 4.2 (3.5-5.0) g/dL 07/29/19 07/29/19 Range/Units 06:54 06:55 WBC (3.8-10.6) k/uL RBC (4.30-5.90) m/uL Hgb (13.0-17.5) gm/dL Hct (39.0-53.0) % MCV (80.0-100.0) fL MCH (25.0-35.0) pg MCHC (31.0-37.0) g/dL RDW (11.5-15.5) % Plt Count (150-450) k/uL Neutrophils % % Lymphocytes % % Monocytes % % Eosinophils % % Basophils % % Neutrophils # (1.3-7.7) k/uL Lymphocytes # (1.0-4.8) k/uL Monocytes # (0-1.0) k/uL Eosinophils # (0-0.7) k/uL Basophils # (0-0.2) k/uL PT (9.0-12.0) sec INR (<1.2) APTT (22.0-30.0) sec Sodium (137-145) mmol/L Potassium (3.5-5.1) mmol/L Chloride (98-107) mmol/L Carbon Dioxide (22-30) mmol/L Anion Gap mmol/L BUN (9-20) mg/dL Creatinine (0.66-1.25) mg/dL Est GFR (CKD-EPI)AfAm (>60 ml/min/1.73 sqM) Est GFR (CKD-EPI)NonAf (>60 ml/min/1.73 sqM) Glucose (74-99) mg/dL POC Glucose (mg/dL) 130 H (75-99) mg/dL POC Glu Recreational Director ID Fetterly, Sonali Calcium (8.4-10.2) mg/dL Total Bilirubin (0.2-1.3) mg/dL AST (17-59) U/L ALT (21-72) U/L Alkaline Phosphatase (38-126) U/L Troponin I <0.012 (0.000-0.034) ng/mL Total Protein (6.3-8.2) g/dL Albumin (3.5-5.0) g/dL - Medical Decision Making The patient was seen and evaluated immediately upon arrival to the ER Patient had a fall from bed earlier in the night, was complaining of pain in right arm, became hypertensive and decision was made to transfer to the hospital EMS reports patient had left sided weakness upon their arrival, declining mental status en route to the hospital Hemodynamicall stable, glucose 116 Concern for CVA vs post ictal state Labs and imaging ordered Patient was noted to have fentanyl patch which was placed yesterday - it was removed, patient's presentation not consistent with opiate overdose (Pauline Grey) Patient evaluated after sign out, patient is alert and oriented, he does have a nonfocal neurologic exam. Head CT is reviewed, negative for intracranial hemorrhage mass effect or acute process. Laboratory studies reveal stable mild anemia hemoglobin 12.1 from previous 12. He also has mild transaminitis, no associated abdominal pain on reexamination this could be trended. Case is discussed with the patient's primary care physician Dr. Mitchell, recommends transfer as there is no neural coverage at this institution currently. [facility], accepting physician Dr. De La Cruz. Diagnosis: suspect seizure with prolonged postictal period, altered mental status, transaminitis. (Anthony Torres) EKG was obtained at 6:49 AM, rate of 69 rhythm is sinus at normal axis and normal intervals, NJ 140, creatinine 4, QTC 398. There are no acute ST elevations or depressions there is no evidence of acute ischemia or infarction. 07/29/19 07:29 (Pauline Grey) Past Medical History Past Medical History: Coronary Artery Disease (CAD), Cancer, COPD, Diabetes Mellitus, GERD/Reflux, Hyperlipidemia, Hypertension, Myocardial Infarction ([place]), Osteoarthritis (OA), Seizure Disorder, Sleep Apnea/CPAP/BIPAP Additional Past Medical History / Comment(s): LAST SEIZURE 2019; lumbar ra diculopathy; neuropathy; no CPAP needed per recent sleep study Last Myocardial Infarction Date:: 10/22/10 History of Any Multi-Drug Resistant Organisms: None Reported Past Surgical History: Back Surgery, Cholecystectomy, Heart Catheterization With Stent Additional Past Surgical History / Comment(s): LAMINECTOMY ,fusion,spinal stimulator LEFT SHOULDER sx, 07-31-15 revison thoracic laminectomy t10-t 11/removal of neuro stimulator and wires removed, fused L1&2 to a cage fusion that was previously put in to L3,4,5. May 27/2018. lobectomy of right middle lung Past Anesthesia/Blood Transfusion Reactions: No Reported Reaction Date of Last Stent Placement:: 10/22/10 Past Psychological History: Depression Smoking Status: Former smoker Past Alcohol Use History: None Reported Past Drug Use History: Marijuana - Past Family History Brother(s) Family Medical History: Deep Vein Thrombosis (DVT) Mother Family Medical History: Osteoarthritis (OA) Additional Family Medical History / Comment(s): psoriases, Parkinsons Father Family Medical History: Coronary Artery Disease (CAD) Additional Family Medical History / Comment(s): heart problems- quad bypass, <Pauline Grey - Last Filed: 07/29/19 07:29> Course Vital Signs 07/29/19 07/29/19 07/29/19 06:49 07:00 07:15 Temperature 98.2 F Pulse Rate 67 73 77 Respiratory 12 12 12 Rate Blood Pressure 146/96 138/89 126/75 O2 Sat by Pulse 96 100 98 Oximetry 07/29/19 07/29/19 07/29/19 07:45 08:00 08:15 Temperature Pulse Rate 70 75 73 Respiratory 13 16 14 Rate Blood Pressure 110/78 121/82 111/73 O2 Sat by Pulse 100 95 95 Oximetry 07/29/19 07/29/19 08:30 08:41 Temperature Pulse Rate 76 76 Respiratory 12 12 Rate Blood Pressure 113/77 113/77 O2 Sat by Pulse 96 96 Oximetry Disposition <Pauline Grey P - Last Filed: 07/29/19 07:29> Is patient prescribed a controlled substance at d/c from ED?: No Time of Disposition: 08:51 - Out of Hospital Transfer - Req. Specs Out of Hospital Transfer - Requested Specifics: Other Emergency Center (Transferred to [facility]) <Anthony Torres - Last Filed: 07/29/19 08:51> Clinical Impression: Generalized seizure, Post-ictal confusion Disposition: OTHER INSTITUTION NOT DEFINED Condition: Stable Referrals: Radha Ortiz MD [Primary Care Provider] - 1-2 days
[2019-07-29 07:09] LABS: Basophils # (A) 0.1 k/uL (0-0.2); Basophils % (A) 1 %; Eosinophils # (A) 0.1 k/uL (0-0.7); Eosinophils % (A) 1 %; HCT 36.6 % (39.0-53.0); HGB 12.1 gm/dL (13.0-17.5); Lymphocytes # (A) 1.2 k/uL (1.0-4.8); Lymphocytes % (A) 18 %; MCH 28.5 pg (25.0-35.0); MCHC 33.2 g/dL (31.0-37.0); MCV 85.9 fL (80.0-100.0); Mean Platelet Volume 6.5; Monocytes # (A) 0.4 k/uL (0-1.0); Monocytes % (A) 6 %; Neutrophils # (A) 4.9 k/uL (1.3-7.7); Neutrophils % (A) 73 %; Platelet Count 191 k/uL (150-450); RBC 4.26 m/uL (4.30-5.90); RDW 14.8 % (11.5-15.5); WBC 6.8 k/uL (3.8-10.6)
[2019-07-29 07:18] LABS: ALT 146 U/L (21-72); AST 71 U/L (17-59); African American GFR (CKD) >90 (>60 ml/min/1.73 sqM); Albumin 4.2 g/dL (3.5-5.0); Alkaline Phosphatase 88 U/L (38-126); Anion Gap 7 mmol/L; Blood Urea Nitrogen 13 mg/dL (9-20); Calcium 9.4 mg/dL (8.4-10.2); Carbon Dioxide 35 mmol/L (22-30); Chloride 100 mmol/L (98-107); Glucose 131 mg/dL (74-99); Sodium 142 mmol/L (137-145); Total Bilirubin 0.6 mg/dL (0.2-1.3); Total Protein 6.8 g/dL (6.3-8.2)
[2019-07-29 07:24] LABS: INR 0.9 (<1.2); Partial Thromboplastin Time 22.4 sec (22.0-30.0); Prothrombin Time 9.6 sec (9.0-12.0)
--- NOTE | 2019-07-29 07:37 | CT ---
EXAMINATION TYPE: CT brain wo con for TPA DATE OF EXAM: 07/29/2019 COMPARISON: Previous study dated 07/21/2019. HISTORY: Neuro deficit CT DLP: 1099.4 mGycm Automated exposure control for dose reduction was used. FINDINGS: Central structures are midline. There is no evidence of hydrocephalus. No acute focal lesion, mass ef fect or midline shift is seen. I do not see evidence of intracranial blood. Visualized portions of the paranasal sinuses and mastoids are clear. The bony calvarium is intact. IMPRESSION: NO ACUTE INTRACRANIAL ABNORMALITY.
[2019-07-29] MEDS ORDERED: SODIUM CHLORIDE 0.9% 500 ML 500 ML IV ONE (08:06)
[2019-07-29] MEDS ORDERED: levETIRAcetam IV 1,000 MG in SALINE 1 100ML.BAG IVPB STA (08:06)
--- NOTE | 2019-07-29 08:06 | XR ---
EXAMINATION TYPE: XR chest 1V DATE OF EXAM: 07/29/2019 HISTORY: altered mental status. REFERENCE: Previous study dated 08/05/2018. FINDINGS: The heart IMPRESSION: FINDINGS SUGGESTIVE OF CONGESTIVE HEART FAILURE.
--- NOTE | 2019-07-29 08:08 | XR ---
EXAMINATION TYPE: XR humerus RT , 2 VIEWS DATE OF EXAM ORDERED: 07/29/2019 HISTORY: fall, arm pain. COMPARISON: None. FINDINGS: There are hypertrophic changes in the right AC joint. No long bone fracture or dislocation is seen. There is some amorphous calcification adjacent to the humeral head. This may be tenderness in nature. IMPRESSION: NO ACUTE OSSEOUS LESION.
--- NOTE | 2019-07-29 08:09 | XR ---
EXAMINATION TYPE: XR forearm RT , 2 VIEWS DATE OF EXAM ORDERED: 07/29/2019 HISTORY: fall, arm pain. COMPARISON: None. FINDINGS: There is an IV in the antecubital fossa. No fracture, dislocation or other acute osseous l esion is seen. No elbow joint effusion is seen. IMPRESSION: NO ACUTE OSSEOUS LESION.
[2019-07-29 08:41] VITALS: BP 113/77; PULSE 76; RESP 12
== END 2019-07-29 10:09 | disposition other institution (70) ==
LOC: EC 06:47
DX: G40.909 Epilepsy, unspecified, not intractable, without status epilepticus (principal); S30.1XXA Contusion of abdominal wall, initial encounter; I10 Essential (primary) hypertension; D64.9 Anemia, unspecified; R74.0 Nonspecific elevation of levels of transaminase and lactic acid dehydrogenase [LDH]; I25.10 Atherosclerotic heart disease of native coronary artery without angina pectoris; K21.9 Gastro-esophageal reflux disease without esophagitis; E78.5 Hyperlipidemia, unspecified; I25.2 Old myocardial infarction; M19.90 Unspecified osteoarthritis, unspecified site; E11.40 Type 2 diabetes mellitus with diabetic neuropathy, unspecified; F32.9 Major depressive disorder, single episode, unspecified; Z79.4 Long term (current) use of insulin; Z79.02 Long term (current) use of antithrombotics/antiplatelets; Z79.52 Long term (current) use of systemic steroids; Z79.899 Other long term (current) drug therapy; Z95.5 Presence of coronary angioplasty implant and graft; Z87.891 Personal history of nicotine dependence; Z90.49 Acquired absence of other specified parts of digestive tract; Z85.118 Personal history of other malignant neoplasm of bronchus and lung; W06.XXXA Fall from bed, initial encounter
CPT/HCPCS: 36415; 93005; 80053; 84484; 85025; 85610; 85730; 73060; 73090; 71045; 70450; 99285; 96365; 96361 ×4; J1953

== ENCOUNTER → 2019-11-23 | Outpatient (CLI) | payer MEDICARE, OTHER ==
[2019-11-23 14:22] VITALS: BP 140/85; PULSE 76; RESP 18
--- NOTE | 2019-11-23 14:47 | P.PAINCN ---
History of Present Illness - Reason for Consult Consult date: 11/23/19 - History of Present Illness This is a 54 years old male with a chronic history of severe right-sided chest wall pain, started after he had a right-sided thoracotomy and lobectomy surgery, he continued to have severe pain in the chest wall, patient had the the surgery done in 2004, and after the surgery his continued to have chest wall pain, the pain is constant, not relieved with the current pain medication is currently on fentanyl patch 100 g, morphine sulfate 15 mg every 12 hours and Cymbalta 60 mg twice a day and amitriptyline 10 mg daily at bedtime, he denies any side effect of the medication, and also patient complaining of severe low back pain with radiation to the left lower extremity, and 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 lung cancer Last Myocardial Infarction Date:: 10/22/10 History of Any Multi-Drug Resistant Organisms: None Reported Past Surgical History: Back Surgery, Cholecystectomy, Heart Catheterization With Stent Additional Past Surgical History / Comment(s): LAMINECTOMY ,fusion,spinal stimulator LEFT SHOULDER sx, 07-31-15 revison thoracic laminectomy t10- t11/removal of neuro stimulator and wires removed, fused L1&2 to a cage fusion that was previously put in to L3,4,5. May 27/2018. 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 Smoking Status: Former smoker Past Alcohol Use History: None Reported Additional Past Alcohol Use History / Comment(s): STARTED SMOKING 1977, smokes 1 ppd, smoking cessation booklet given to pt. quit drinking 2009 Past Drug Use History: Marijuana Additional Drug Use History / Comment(s): HAS A MEDICAL CARD DAILY - Past Family History Brother(s) Family Medical History: Deep Vein Thrombosis (DVT) Mother Family Medical History: Osteoarthritis (OA) Additional Family Medical History / Comment(s): psoriases, Parkinsons Father Family Medical History: Coronary Artery Disease (CAD) Additional Family Medical History / Comment(s): heart problems- quad bypass, Medications and Allergies Home Medications Medication Instructions Recorded Confirmed Type Gabapentin 800 mg PO TID 07/24/15 11/23/19 History Potassium Chloride [Klor-Con 10] 10 meq PO DAILY@0900 07/24/15 11/23/19 History metFORMIN HCL 1,000 mg PO BID@0800,1700 07/24/15 11/23/19 History Atorvastatin [Lipitor] 20 mg PO HS@209903/28/19 11/23/19 History levETIRAcetam [Keppra] 750 mg PO DAILY@1200 03/28/19 11/23/19 History Acetaminophen [Tylenol] 650 mg PO Q6H PRN 05/30/19 11/23/19 History Insulin Glargine,Hum.rec.anlog 10 unit SQ HS@209905/30/19 11/23/19 History [Basaglar Lucianopen U-100] Linagliptin [Tradjenta] 5 mg PO DAILY@0900 05/30/19 11/23/19 History Midodrine HCl [ProAmatine] 10 mg PO TID@0900,1300,209905/30/19 11/23/19 History rOPINIRole HCL [Requip] 3 mg PO TID@0600,1400,2200 05/30/19 11/23/19 History Azelastine HCl [Astepro] 2 spray NASAL BID PRN 07/21/19 11/23/19 History Cyclobenzaprine [Flexeril] 5 mg PO TID@0600,1400,2200 07/21/19 11/23/19 History DULoxetine HCL [Cymbalta] 60 mg PO BID@0900,2100 07/21/19 11/23/19 History Divalproex Sodium [Depakote] 500 mg PO TID@0900,1300,209907/21/19 11/23/19 History Ergocalciferol [Vitamin D2 50,000 units PO ANDERSON 07/21/19 11/23/19 History (DRISDOL)] Metoprolol Tartrate [Lopressor] 75 mg PO BID@0900,209907/21/19 11/23/19 History Montelukast [Singulair] 10 mg PO HS@209907/21/19 11/23/19 History Sertraline [Zoloft] 50 mg PO DAILY@0900 07/21/19 11/23/19 History levETIRAcetam [Keppra] 1,500 mg PO BID@0900,209907/21/19 11/23/19 History Amitriptyline HCl [Elavil] 10 mg PO HS 11/20/19 11/23/19 History Famotidine [Pepcid] 20 mg PO BID 11/20/19 11/23/19 History Furosemide [Lasix] 20 mg PO DAILY 11/20/19 11/23/19 History Melatonin 10 mg PO HS 11/20/19 11/23/19 History Morphine Sulfate [Morphine Sulfate 15 mg PO Q12H PRN 11/20/19 11/23/19 History ER] Ondansetron HCl [Zofran] 4 mg PO Q8H PRN 11/20/19 11/23/19 History Pramoxine HCl/Zinc Acetate 1 applic TOPICAL TID PRN 11/20/19 11/23/19 History [Caladryl Clear Lotion] fentaNYL 100MCG/HR PATCH 100 mcg TRANSDERM Q72H 11/20/19 11/23/19 History [Duragesic 100MCG/HR] predniSONE 1 tab PO DIRECTED 11/23/19 11/23/19 History Allergies Allergy/AdvReac Type Severity Reaction Status Date / Time pregabalin [From Lyrica] Allergy Unknown Verified 11/20/19 11:19 Physical Exam Vitals: Vital Signs Pulse Resp BP Pulse Ox 11/23/19 14:14 76 18 140/85 96 REVIEW OF ORGAN SYSTEMS: CONSTITUTIONAL: No fevers or chills. No recent weight loss. EYES: denies troubles with vision. HEENT: No difficulties with hearing. No nosebleeds. No difficulty swallowing. RESPIRATORY: History of lung cancer, status post right t horacotomy with right lobectomy CARDIOVASCULAR: Denies any chest pain, palpitations, or recent heart attacks. GASTROINTESTINAL: Denies fatty food intolerance. Has change in bowel habits and gas bloat. GENITOURINARY: Denies any blood in urine. Has increased urinary frequency. NEUROLOGICAL: + numbness and tingling along the left lower extremities. + seizure disorders or headaches. MUSCULOSKELETAL: Has back pain. SKIN:no skin cancer. No rash. PSYCHIATRIC: Denies current depression or suicidal thoughts. ENDOCRINE: Denies current thyroid disorders. Denies any blood sugar glucose intolerance. HEME/LYMPHATIC: Denies any lumps and bumps around the neck. History of deep venous thrombosis. ALLERGY/IMMUNOLOGY: No immunoglobulin therapy. No immune deficiencies. BREAST: Denies current breast lumps, pain or nipple discharge. Physical Examinations : Constitutiona : Cooperative , not in acute distress . HEENT : nech : supple , no Lymphadenopathy , normal thyroid size . : eyes no ptosis , no icterus, no photophobia . : ENT normal of hearing , normal oropharynx , no Thrush . Respiratory : Chest clear to auscultations Bilaterally , no wheezing , no Rhonchi . Right side chest wall scar, Positive allodynia and tenderness over the right side of the chest wall from T8 to T11 Cardiovascula : regular rate and rhythem , S1 , S2 , no S3 , no S4. Gastrointestina : abdomen soft no tenderness , bowel sounds , no organomegally . Genitourinary : Defferred . neurologic : Cranial nerve II to XII intact , no focal neurological deffecit . psychatric : alert , oriented X 3 , appropriate affect , intact judgment and insight . Lymphatic : no Lymphadenopathy . musculoskeltal : Antalgic gait Lumber spine moter stegnth lower extremities ,thigh and legs 5/5 Right side , 3/5 Left side deep tendon reflexes : normal Knee Jerk , normal ankle Jerk lumber facet Loading Test= positive Right , positive Left Range of motion of the lumbar spine Flexion 30 degrees, extension 10 degrees strait leg raising test , positive at degree Fabere test= positive Right , and positive left . 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 2-failed back surgery syndrome and lumbar area. 3-lumbar spondylosis and lumbar facet arthropathy. A shunt should continue his current pain medication as prescribed by his primary care. Time with Patient: Greater than 30 PQRS Measure Charge Sheet Measure #130: Documentation of Current Meds in Medical Chart: Patient's m edications documented in chart Measure #226: Tobacco Use: Screen & Cessation Intervention: Pt not a tobacco user Measure #111: Pneumonia Vaccination: Pneumococcal vaccine administered or previously received Measure #47: Advance Care Plan: Advance care planning discussed & documented, pt chose/unable to give Measure #412: Opioid Treatment Agreement: No documentation of signed opioid treatment agreement Measure #408: Opioid Therapy Follow-up Evaluation: Patient had NO f/u eval minimum every 3 months during opioid therapy Measure #317: Preventitive Care & Scrn High Bld Press & F/U: Normal blood pressure, f/u not required Measure #128: Body Mass Index (BMI) Screening & Follow-up: BMI documented ABOVE normal parameters - f/u documented Measure #131: Pain Assessment & Follow-up: Pain positive & plan documented, Follow-up scheduled Measure #431: Unhealthy Alcohol Use Preventative Care & Scrn: Patient not identified as an unhealthy alcohol user PQRS Narrative: Smoking Status Former smoker Blood Pressure 140/85 Pain Intensity [Right Chest] 6 Scale Used Numeric (1 - 10) Hx Alcohol Use (MH) No Home Medications: Ambulatory Orders Gabapentin 800 mg PO TID 07/24/15 Potassium Chloride [Klor-Con 10] 10 meq PO DAILY@0900 07/24/15 metFORMIN HCL 1,000 mg PO BID@0800,1700 07/24/15 Atorvastatin [Lipitor] 20 mg PO HS@209903/28/19 levETIRAcetam [Keppra] 750 mg PO DAILY@1200 03/28/19 Acetaminophen [Tylenol] 650 mg PO Q6H PRN 05/30/19 Insulin Glargine,Hum.rec.anlog [Basaglar Kwikpen U-100] 10 unit SQ HS@209905/30/19 Linagliptin [Tradjenta] 5 mg PO DAILY@0900 05/30/19 Midodrine HCl [ProAmatine] 10 mg PO TID@0900,1300,209905/30/19 rOPINIRole HCL [Requip] 3 mg PO TID@0600,1400,219905/30/19 Azelastine HCl [Astepro] 2 spray NASAL BID PRN 07/21/19 Cyclobenzaprine [Flexeril] 5 mg PO TID@0600,1400,219907/21/19 DULoxetine HCL [Cymbalta] 60 mg PO BID@0900,209907/21/19 Divalproex Sodium [Depakote] 500 mg PO TID@0900,1300,209907/21/19 Ergocalciferol [Vitamin D2 (DRISDOL)] 50,000 units PO ANDERSON 07/21/19 Metoprolol Tartrate [Lopressor] 75 mg PO BID@0900,209907/21/19 Montelukast [Singulair] 10 mg PO HS@209907/21/19 Sertraline [Zoloft] 50 mg PO DAILY@89907/21/19 levETIRAcetam [Keppra] 1,500 mg PO BID@00,209907/21/19 Amitriptyline HCl [Elavil] 10 mg PO HS 11/20/19 Famotidine [Pepcid] 20 mg PO BID 11/20/19 Furosemide [Lasix] 20 mg PO DAILY 11/20/19 Melatonin 10 mg PO HS 11/20/19 Morphine Sulfate [Morphine Sulfate ER] 15 mg PO Q12H PRN 11/20/19 Ondansetron HCl [Zofran] 4 mg PO Q8H PRN 11/20/19 Pramoxine HCl/Zinc Acetate [Caladryl Clear Lotion] 1 applic TOPICAL TID PRN 11/20/19 fentaNYL 100MCG/HR PATCH [Duragesic 100MCG/HR] 100 mcg TRANSDERM Q72H 11/20/19 predniSONE 1 tab PO DIRECTED 11/23/19
== END | disposition home or self-care (01) ==
LOC: PNWHC3 13:34
PROVIDERS: ATTEND Specialist
DX: M47.816 Spondylosis without myelopathy or radiculopathy, lumbar region (principal); G58.8 Other specified mononeuropathies; M96.1 Postlaminectomy syndrome, not elsewhere classified; E11.9 Type 2 diabetes mellitus without complications; I25.10 Atherosclerotic heart disease of native coronary artery without angina pectoris; I10 Essential (primary) hypertension; G62.9 Polyneuropathy, unspecified; M19.90 Unspecified osteoarthritis, unspecified site; E78.5 Hyperlipidemia, unspecified; J44.9 Chronic obstructive pulmonary disease, unspecified; Z87.891 Personal history of nicotine dependence; Z98.890 Other specified postprocedural states; Z98.1 Arthrodesis status; Z79.84 Long term (current) use of oral hypoglycemic drugs; Z79.4 Long term (current) use of insulin; Z79.890 Hormone replacement therapy; Z79.891 Long term (current) use of opiate analgesic; Z79.52 Long term (current) use of systemic steroids; Z88.8 Allergy status to other drugs, medicaments and biological substances
CPT/HCPCS: 99211

== ENCOUNTER → 2019-11-30 | Day surgery (SDC) | payer MEDICARE, OTHER ==
[2019-11-29 10:36] VITALS: BMI 34.7
[~2019-11-30] MED LIST: IOPAMIDOL M200 10 ML VIAL ONE; IV FLUID CONTINUATION 1,000 ML IV ONE; LACTATED RINGERS 1,000 ML IV ONE; LACTATED RINGERS 1,000 ML IV SCH; LIDOCAINE 1% (10MG/ML) FOR IV START INTRADERMA ONE; MIDAZOLAM 2 MG/2 ML VIAL ONE; ROPIVACAINE 5MG/ML 20ML VIAL ONE; fentaNYL (PF) 50 MCG/ML 2 ML AMP ONE; methylPREDNISolone ACETATE 40 MG/ML 1 ML VIAL ONE
[2019-11-30 06:47] LABS: Glucose,Whole Blood 152 mg/dL (75-99)
[2019-11-30 06:52] VITALS: RESP 18; TEMP 97.7
--- NOTE | 2019-11-30 07:40 | P.PCN ---
Date of Procedure: 11/30/19 Procedure(s) Performed: PROCEDURE: right sided T5, T6. T7, T8 , T9 Intercostal nerve block under fluoroscopic guidance.( Fluoroscopy images available in the radiology department ) PREOP DIAGNOSIS: Right Intercostal neuralgia. POSTOP DIAGNOSIS: Right Intercostal neuralgia. ANESTHESIA: Moderate sedation with Versed, 2 mg and Fentanyl 100 g EBL: Minimal COMPLICATION: None. IV FLUIDS: 100 mL of normal saline. PROCEDURE INDICATION: Chronic right-sided thoracic pain secondary to intercostals neuralgia . PROCEDURE DESCRIPTION: The patient was seen and identified in the preoperative area. Risks, benefits, complications, and alternatives were discussed with the patient. The patient agreed to proceed with the procedure ,and signed the consent. IV was started. Vital signs were stable throughout the procedure. Sedation was given to decrease the patient's and anxiety ,The patient was taken to the procedure room and was placed in the prone position on the procedure table. The painful area was marked , and I cheched the levels under fluoroscopy and it showed that the the painful area was between the T5 through T9 ribs on the right side ,The thoracic area was prepped and draped in the usual sterile fashion. Using anteroposterior fluoroscopy, the T5 rib on the right side was identified. An area approximately 2 inches lateral to the vertebral midline was localized under fluoroscopy. Subsequently, lidocaine 1% 1 mL used for skin and subcutaneous tissue infiltration using 25-gauge needle ,then 22- gauge, 3-1/2-inch needle was advanced under fluoroscopy towards the inferior aspect of the 5 th rib. After making contact with the rib, the needle was walked off and carefully slipped inferiorly off the rib. After negative aspiration and with the absence of paresthesias, then Isovue 200 was injected and showed there is no intravascular spread , then 1,5 ml of block solution which is mixture of ropivacaine 0.5% and 40 mg of Depo-Medrol and 1-1/2 mL of the block solution was injected after negative aspiration . Then subsequently removed while the same procedure was repeated at the levels of T6 ,T7 , T8 ,T9 At the end of the procedure, skin was cleansed, and bandages were applied. Patient denied any shortness of breath after the procedure. Lungs auscultation showed clear and equal air entry bilaterally after the procedure. The patient tolerated the procedure well without complications. Patient was observed in the recovery area until he met all discharge criteria. Chest x-ray ordered and it will be checked to rule out pneumothorax
--- NOTE | 2019-11-30 08:07 | XR ---
EXAMINATION TYPE: XR chest 1V portable DATE OF EXAM: 11/30/2019 COMPARISON: 07/29/2019 HISTORY: Pain after intercostal injection. Evaluate for pneumothorax. TECHNIQUE: Single frontal view of the chest is obtained. FINDINGS: Right apical pleural thickening is identified. Patient rotation slightly rotated mediastinu m to the left. There is no focal air space opacity, pleural effusion, or pneumothorax seen. The card iac silhouette size is within normal limits. The osseous structures are intact. IMPRESSION: No acute process.
[2019-11-30 08:14] LABS: Glucose,Whole Blood 129 mg/dL (75-99)
[2019-11-30 08:43] VITALS: BP 117/74; PULSE 88
--- NOTE | 2019-11-30 09:49 | FL ---
EXAMINATION TYPE: FL guided pain mgmt statistic DATE OF EXAM: 11/30/2019 HISTORY: Fluoroscopy time 13 seconds of fluoroscopy provided. IMPRESSION: 1. Fluoroscopy time.
== END ==
LOC: ORPAIN 06:03
PROVIDERS: ATTEND Specialist
DX: G89.29 Other chronic pain (principal); G58.0 Intercostal neuropathy; M54.6 Pain in thoracic spine; R07.89 Other chest pain; M47.896 Other spondylosis, lumbar region; M96.1 Postlaminectomy syndrome, not elsewhere classified; I25.10 Atherosclerotic heart disease of native coronary artery without angina pectoris; J44.9 Chronic obstructive pulmonary disease, unspecified; E11.9 Type 2 diabetes mellitus without complications; K21.9 Gastro-esophageal reflux disease without esophagitis; G47.30 Sleep apnea, unspecified; E78.5 Hyperlipidemia, unspecified; I10 Essential (primary) hypertension; M19.90 Unspecified osteoarthritis, unspecified site; F32.9 Major depressive disorder, single episode, unspecified; F17.210 Nicotine dependence, cigarettes, uncomplicated; G40.909 Epilepsy, unspecified, not intractable, without status epilepticus; I25.2 Old myocardial infarction; Z86.73 Personal history of transient ischemic attack (TIA), and cerebral infarction without residual deficits; Z98.890 Other specified postprocedural states; Z79.891 Long term (current) use of opiate analgesic; Z79.899 Other long term (current) drug therapy; Z98.1 Arthrodesis status; Z85.118 Personal history of other malignant neoplasm of bronchus and lung; Z90.49 Acquired absence of other specified parts of digestive tract; Z95.5 Presence of coronary angioplasty implant and graft; Z90.2 Acquired absence of lung [part of]; Z79.4 Long term (current) use of insulin; Z79.52 Long term (current) use of systemic steroids; Z88.8 Allergy status to other drugs, medicaments and biological substances; Z82.49 Family history of ischemic heart disease and other diseases of the circulatory system; Z82.61 Family history of arthritis; Z84.0 Family history of diseases of the skin and subcutaneous tissue; Z81.8 Family history of other mental and behavioral disorders
CPT/HCPCS: 64421; 71045; 64420; J2250; J1030; J3010; Q9966; J2795; 99152

== ENCOUNTER 2020-02-11 21:27 | Inpatient (IN) | payer MEDICARE, OTHER ==
[2020-02-11] MEDS ORDERED: PANTOPRAZOLE 40 MG/10 ML VIAL IVP STA (21:46)
[2020-02-11] MEDS ORDERED: HYDROmorphone 1 MG/ML 1 ML SYRINGE IVP STA (21:46)
[2020-02-11] MEDS ORDERED: ONDANSETRON 4 MG/2 ML VIAL IVP STA (21:46)
--- NOTE | 2020-02-11 21:48 | ED ---
General Adult HPI - General Source: patient, RN notes reviewed Mode of arrival: EMS Limitations: no limitations <Keyur Wade - Last Filed: 02/11/20 23:13> <Sukhjinder Stauffer - Last Filed: 02/12/20 01:11> - General Stated complaint: Abdominal pain Time Seen by Provider: 02/11/20 21:35 - History of Present Illness Initial comments: Patient is a pleasant 54-year-old male presenting to the emergency department from [facility] in [facility] for complaints of abdominal discomfort. Last bowel movement was 3 days ago. Patient states this is not normal for him. Patient did receive an enema without improvement of symptoms. Patient is nauseated and did vomit once. No fevers. No history of similar symptoms previously. (Shukri Wade) - Related Data Home Medications Medication Instructions Recorded Confirmed Gabapentin 800 mg PO TID 07/24/15 11/30/19 Potassium Chloride [Klor-Con 10] 10 meq PO DAILY@0900 07/24/15 11/29/19 metFORMIN HCL 1,000 mg PO BID@0800,1700 07/24/15 11/29/19 Atorvastatin [Lipitor] 20 mg PO HS@209903/28/19 11/30/19 levETIRAcetam [Keppra] 750 mg PO DAILY@1400 03/28/19 11/29/19 Acetaminophen [Tylenol] 650 mg PO Q6H PRN 05/30/19 11/30/19 Insulin Glargine,Hum.rec.anlog 10 unit SQ HS@209905/30/19 11/30/19 [Basaglar Kwikpen U-100] Linagliptin [Tradjenta] 5 mg PO DAILY@0900 05/30/19 11/30/19 Midodrine HCl [ProAmatine] 10 mg PO TID@0900,1300,2100 05/30/19 11/30/19 rOPINIRole HCL [Requip] 3 mg PO TID@0600,1400,2200 05/30/19 11/30/19 Cyclobenzaprine [Flexeril] 5 mg PO TID@0600,1400,2200 07/21/19 11/30/19 DULoxetine HCL [Cymbalta] 60 mg PO BID@0900,2100 07/21/19 11/30/19 Divalproex Sodium [Depakote] 500 mg PO TID@0900,1300,2100 07/21/19 11/30/19 Ergocalciferol [Vitamin D2 50,000 units PO ANDERSON 07/21/19 11/30/19 (DRISDOL)] Metoprolol Tartrate [Lopressor] 75 mg PO BID@0900,2100 07/21/19 11/30/19 Montelukast [Singulair] 10 mg PO HS@209907/21/19 11/30/19 Sertraline [Zoloft] 50 mg PO DAILY@0900 07/21/19 11/29/19 levETIRAcetam [Keppra] 1,500 mg PO BID@0900,209907/21/19 11/29/19 Amitriptyline HCl [Elavil] 10 mg PO HS 11/20/19 11/30/19 Famotidine [Pepcid] 20 mg PO BID 11/20/19 11/30/19 Furosemide [Lasix] 20 mg PO DAILY 11/20/19 11/30/19 Melatonin 10 mg PO HS 11/20/19 11/30/19 Morphine Sulfate [Morphine Sulfate 15 mg PO Q12H PRN 11/20/19 11/30/19 ER] Ondansetron HCl [Zofran] 4 mg PO Q8H PRN 11/20/19 11/30/19 Pramoxine HCl/Zinc Acetate 1 applic TOPICAL TID PRN 11/20/19 11/29/19 [Caladryl Clear Lotion] fentaNYL 100MCG/HR PATCH 100 mcg TRANSDERM Q72H 11/20/19 11/30/19 [Duragesic 100MCG/HR] predniSONE 1 tab PO DIRECTED 11/23/19 11/29/19 Insulin Aspart [NovoLOG] 0 units SQ TID-W/MEALS PRN 11/29/19 11/29/19 Oxymetazoline 0.05% Nasl [place] 2 spray EA NOSTRIL BID PRN 11/29/19 11/29/19 [Afrin 0.05% Nasal [place]] Allergies Allergy/AdvReac Type Severity Reaction Status Date / Time No Known Allergies Allergy Verified 02/11/20 21:51 Review of Systems ROS Other: All systems not noted in ROS Statement are negative. Constitutional: Denies: fever, chills Eyes: Denies: eye pain ENT: Denies: ear pain Respiratory: Denies: cough Cardiovascular: Denies: chest pain Endocrine: Denies: fatigue Gastrointestinal: Reports: abdominal pain, nausea, vomiting, constipation Genitourinary: Denies: dysuria Musculoskeletal: Denies: back pain Skin: Denies: rash Neurological: Denies: weakness <Keyur Wade - Last Filed: 02/11/20 23:13> ROS Other: All systems not noted in ROS Statement are negative. <Sukhjinder Stauffer - Last Filed: 02/12/20 01:11> ROS Statement: Those systems with pertinent positive or pertinent negative responses have been documented in the HPI. Past Medical History Past Medical History: Coronary Artery Disease (CAD), Cancer, COPD, Diabetes Mellitus, GERD/Reflux, Hyperlipidemia, Hypertension, Myocardial Infarction (CT), Osteoarthritis (OA), Seizure Disorder, Sleep Apnea/CPAP/BIPAP Additional Past Medical History / Comment(s): LAST SEIZURE 2018; lumbar radiculo arnie; neuropathy; no CPAP needed per recent sleep study, hx. lung cancer Last Myocardial Infarction Date:: 10/22/10 History of Any Multi-Drug Resistant Organisms: None Reported Past Surgical History: Back Surgery, Cholecystectomy, Heart Catheterization With Stent Additional Past Surgical History / Comment(s): LAMINECTOMY ,fusion,spinal stimulator LEFT SHOULDER sx, 07-31-15 revison thoracic laminectomy t10- t11/removal of neuro stimulator and wires removed, fused L1&2 to a cage fusion that was previously put in to L3,4,5. May 27/2018. 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 Smoking Status: Former smoker Past Alcohol Use History: None Reported Additional Past Alcohol Use History / Comment(s): STARTED SMOKING 1977, smokes 1 ppd, smoking cessation booklet given to pt. 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 [facility] "marijuana no use currently-clear on last drug screen" - Past Family History Brother(s) Family Medical History: Deep Vein Thrombosis (DVT) Mother Family Medical History: Osteoarthritis (OA) Additional Family Medical History / Comment(s): psoriases, Parkinsons Father Family Medical History: Coronary Artery Disease (CAD) Additional Family Medical History / Comment(s): heart problems- quad bypass, <Keyur Wade - Last Filed: 02/11/20 23:13> General Exam Limitations: no limitations General appearance: alert, in no apparent distress Head exam: Present: normocephalic Eye exam: Present: normal appearance Neck exam: Present: normal inspection Respiratory exam: Present: normal lung sounds bilaterally Cardiovascular Exam: Present: regular rate, normal rhythm Expanded Peripheral pulses: 2+: Dorsalis Pedis (R), Dorsalis Pedis (L) GI/Abdominal exam: Present: soft, tenderness (Mild to moderate diffuse tenderness), normal bowel sounds. Absent: distended, guarding, rebound, rigid, pulsatile mass Extremities exam: Present: normal inspection Neurological exam: Present: alert Psychiatric exam: Present: normal affect, normal mood Skin exam: Present: normal color <Keyur Wade - Last Filed: 02/11/20 23:13> Course <Keyur Wade - Last Filed: 02/11/20 23:13> <Sukhjinder Stauffer - Last Filed: 02/12/20 01:11> Vital Signs 02/11/20 02/11/20 21:53 23:34 Temperature 99.4 F Pulse Rate 122 H 111 H Respiratory 24 18 Rate Blood Pressure 133/77 107/65 O2 Sat by Pulse 100 98 Oximetry - Reevaluation(s) Reevaluation #1: 02/11/20 22:[address] Oneal for final disposition (Keyur Wade) Reevaluation #2: 02/12/20 01:10 Medical record reviewed and patient has pain control (Sukhjinder Stauffer) Reevaluation #3: 02/12/20 01:11 Patient's pain is improved (Sukhjinder Stauffer) - Consultations Consultation #1: Spoke with Dr. Handy who is agreeable to admit patient (Sukhjinder Stauffer) Medical Decision Making - Lab Data Result diagrams: 02/11/20 22:00 02/11/20 22:00 - Radiology Data Radiology results: image reviewed (Chest x-ray shows fibrotic change) <Keyur Wade - Last Filed: 02/11/20 23:13> - Lab Data Result diagrams: 02/11/20 22:00 02/11/20 22:00 - Radiology Data Radiology results: report reviewed (CT abdomen and pelvis is positive for small bowel obstruction), image reviewed <Sukhjinder Stauffer - Last Filed: 02/12/20 01:11> - Medical Decision Making 54 male DF for evaluation of abdominal pain nausea, also severe chronic pain. Patient does have small bowel obstruction with pancreatitis will admit for nothing by mouth IV fluids and symptom management (Sukhjinder Stauffer) - Lab Data Lab Results 02/11/20 02/11/20 02/11/20 Range/Units 22:00 22:00 22:00 WBC 11.2 H (3.8-10.6) k/uL RBC 4.68 (4.30-5.90) m/uL Hgb 13.5 (13.0-17.5) gm/dL Hct 40.2 (39.0-53.0) % MCV 85.8 (80.0-100.0) fL MCH 28.9 (25.0-35.0) pg MCHC 33.7 (31.0-37.0) g/dL RDW 14.2 (11.5-15.5) % Plt Count 243 (150-450) k/uL Neutrophils % 82 % Lymphocytes % 10 % Monocytes % 6 % Eosinophils % 0 % Basophils % 0 % Neutrophils # 9.2 H (1.3-7.7) k/uL Lymphocytes # 1.1 (1.0-4.8) k/uL Monocytes # 0.7 (0-1.0) k/uL Eosinophils # 0.0 (0-0.7) k/uL Basophils # 0.0 (0-0.2) k/uL PT 10.1 (9.0-12.0) sec INR 1.0 (<1.2) APTT 22.1 (22.0-30.0) sec Sodium 138 (137-145) mmol/L Potassium 3.5 (3.5-5.1) mmol/L Chloride 95 L (98-107) mmol/L Carbon Dioxide 23 (22-30) mmol/L Anion Gap 20 mmol/L BUN 15 (9-20) mg/dL Creatinine 0.57 L (0.66-1.25) mg/dL Est GFR (CKD-EPI)AfAm >90 (>60 ml/min/1.73 sqM) Est GFR (CKD-EPI)NonAf >90 (>60 ml/min/1.73 sqM) Glucose 218 H (74-99) mg/dL Calcium 10.5 H (8.4-10.2) mg/dL Total Bilirubin 1.0 (0.2-1.3) mg/dL AST 40 (17-59) U/L ALT 32 (4-49) U/L Alkaline Phosphatase 102 (38-126) U/L Total Protein 7.7 (6.3-8.2) g/dL Albumin 4.9 (3.5-5.0) g/dL Amylase 130 H (30-110) U/L Lipase 851 H (23-300) U/L Disposition <Keyur Wade - Last Filed: 02/11/20 23:13> Is patient prescribed a controlled substance at d/c from ED?: No <Sukhjinder Stauffer - Last Filed: 02/12/20 01:11> Clinical Impression: Small bowel obstruction, Pancreatitis, Dehydration, Abdominal pain Disposition: ADMITTED IP TO THIS HOSP Condition: Fair Referrals: Radha Ortiz MD [Primary Care Provider] - 1-2 days
[2020-02-11 22:24] LABS: Basophils % (A) 0 %; Eosinophils % (A) 0 %; HCT 40.2 % (39.0-53.0); HGB 13.5 gm/dL (13.0-17.5); Lymphocytes # (A) 1.1 k/uL (1.0-4.8); Lymphocytes % (A) 10 %; MCH 28.9 pg (25.0-35.0); MCHC 33.7 g/dL (31.0-37.0); MCV 85.8 fL (80.0-100.0); Mean Platelet Volume 7.8; Monocytes # (A) 0.7 k/uL (0-1.0); Monocytes % (A) 6 %; Neutrophils # (A) 9.2 k/uL (1.3-7.7); Neutrophils % (A) 82 %; Platelet Count 243 k/uL (150-450); RBC 4.68 m/uL (4.30-5.90); RDW 14.2 % (11.5-15.5); WBC 11.2 k/uL (3.8-10.6)
[2020-02-11 22:34] LABS: AST 40 U/L (17-59); African American GFR (CKD) >90 (>60 ml/min/1.73 sqM); Albumin 4.9 g/dL (3.5-5.0); Alkaline Phosphatase 102 U/L (38-126); Amylase 130 U/L (30-110); Anion Gap 20 mmol/L; Blood Urea Nitrogen 15 mg/dL (9-20); Calcium 10.5 mg/dL (8.4-10.2); Carbon Dioxide 23 mmol/L (22-30); Chloride 95 mmol/L (98-107); Glucose 218 mg/dL (74-99); Non-African American GFR(CKD) >90 (>60 ml/min/1.73 sqM); Potassium 3.5 mmol/L (3.5-5.1); Sodium 138 mmol/L (137-145); Total Protein 7.7 g/dL (6.3-8.2)
--- NOTE | 2020-02-11 22:37 | XR ---
EXAMINATION TYPE: XR chest 2V DATE OF EXAM: 02/11/2020 COMPARISON: 11/30/2019 HISTORY: Pain TECHNIQUE: 3 views FINDINGS: There is coarsening of interstitial markings. There is poor inspiration. There is no gross heart failure. There are chest leads. IMPRESSION: Interstitial fibrotic changes increased compared to old exam. No obvious heart failure. P oor inspiration.
[2020-02-11 22:41] LABS: Partial Thromboplastin Time 22.1 sec (22.0-30.0); Prothrombin Time 10.1 sec (9.0-12.0)
[2020-02-11 22:51] LABS: ALT 32 U/L (4-49)
--- NOTE | 2020-02-11 23:22 | CT ---
EXAMINATION TYPE: CT abdomen pelvis w con DATE OF EXAM: 02/11/2020 COMPARISON: None HISTORY: Lower back pain/ Vomiting CT DLP: 2216.9 mGycm Automated exposure control for dose reduction was used. CONTRAST: Performed with IV Contrast, patient injected with 100 mL of Isovue 300. Lung bases are clear of consolidation. There is no pleural effusion. Heart size is normal. There is n o pericardial effusion. There are clips from cholecystectomy. Liver spleen pancreas stomach appear normal. Intrahepatic bile ducts are not dilated. There is large common bile duct that measures 1.6 cm. There is no adrenal mass. Kidneys show satisfactory contrast opacification. There is no hydronephrosi s. Ureters are not dilated. Bladder distends smoothly. There is no inguinal hernia. There is no free fluid in the pelvis. There are multiple mildly dilated fluid-filled loops of small bowel throughout t he abdomen. The terminal ileum is not dilated. Transition point not seen. I see no hernia. Small chandni l measures up to 3.4 cm. The appendix appears normal. Fecal pattern is fairly normal. I see no mesenteric edema. There is no ascites or free air. There is multilevel laminectomy in the lower lumbar spine with posterior fusion surgery. There is metal artifa ct from posterior fusion surgery in the lower lumbar spine. There is L3-4 disc space narrowing. There is a first-degree L5-S1 spondylolisthesis. IMPRESSION: Dilated mid and proximal small bowel with fluid levels suggestive of partial mechanical small bowel o bstruction. Transition point not identified. Obstructing mass not seen. This could relate to a strict ure. Distal ileum is not dilated. Normal appendix.
[2020-02-12] MEDS ORDERED: LORazepam 2 MG/ML INJ IV STA (00:45)
[2020-02-12] MEDS ORDERED: HYDROmorphone 1 MG/ML 1 ML SYRINGE IVP STA (00:45)
[2020-02-12] MEDS ORDERED: SODIUM CHLORIDE 0.9% 500 ML 500 ML IV STA (00:46)
[2020-02-12] MEDS ORDERED: SODIUM CHLORIDE 0.9% 1,000 ML IV STA ×2 (00:46)
[2020-02-12] MEDS: LORazepam 2 MG/ML INJ IV PRN ×3 (04:56→17:52)
[2020-02-12] MEDS: HYDROmorphone 1 MG/ML 1 ML SYRINGE IVP PRN ×4 (04:57→21:09)
[2020-02-12] MEDS ORDERED: ONDANSETRON 4 MG TAB PO PRN (08:11)
[2020-02-12] MEDS ORDERED: ACETAMINOPHEN TAB 325 MG TAB PO PRN (08:11)
[2020-02-12] MEDS ORDERED: MORPHINE SULFATE ER 15 MG TABLET PO PRN (08:11)
[2020-02-12] MEDS ORDERED: OXYMETAZOLINE 0.05% NASL SPRAY 1 SPRAY BOTTLE EA NOSTRIL PRN (08:11)
[2020-02-12] MEDS ORDERED: METOPROLOL TARTRATE 25 MG TAB PO SCH (09:00)
[2020-02-12] MEDS ORDERED: GABAPENTIN 400 MG CAP PO SCH (09:00)
[2020-02-12] MEDS ORDERED: POTASSIUM CHLORIDE ER 10 MEQ TAB.ER.PRT PO SCH (09:00)
[2020-02-12] MEDS: FAMOTIDINE 20 MG TAB PO SCH ×2 (09:18→20:53)
[2020-02-12] MEDS: FUROSEMIDE 20 MG TAB PO SCH (09:19)
[2020-02-12] MEDS: MIDODRINE 5 MG TAB PO SCH ×3 (09:19→20:53)
[2020-02-12] MEDS: SERTRALINE 50 MG TAB PO SCH (09:19)
[2020-02-12] MEDS: DIVALPROEX 500 MG TABLET.DR PO SCH ×3 (09:19→20:53)
[2020-02-12] MEDS: DULoxetine HCL 60 MG CAPSULE.DR PO SCH ×2 (09:19→20:53)
[2020-02-12] MEDS: PANTOPRAZOLE 40 MG/10 ML VIAL IVP SCH (09:22)
[2020-02-12 09:42] LABS: Appearance,Urine Clear (Clear); Bilirubin,Urine Negative (Negative); Blood,Urine Negative (Negative); Color,Urine Yellow; Glucose,Urine (UA) Negative (Negative); Ketones,Urine Trace (Negative); Leukocyte Esterase,Urine Negative (Negative); Nitrite,Urine Negative (Negative); Protein,Urine Trace (Negative); Specific Gravity,Urine 1.045 (1.001-1.035)
[2020-02-12] MEDS: ENOXAPARIN 40 MG/0.4 ML SYRINGE SQ SCH (11:17)
[2020-02-12] MEDS: INSULIN ASPART (NovoLOG) 100 UNIT/ML VIAL SQ SCH ×2 (11:30→17:44)
[2020-02-12 11:32] LABS: Glucose,Whole Blood 116 mg/dL (75-99)
[2020-02-12] MEDS ORDERED: AZELASTINE 137MCG/SPRAY EA NOSTRIL PRN (11:32)
--- NOTE | 2020-02-12 11:32 | P.HPIM ---
History of Present Illness H&P Date: 02/12/20 Chief Complaint: Acute abdominal pain, small bowel obstruction, acute pancre atitis, chronic 54-year-old male one of Dr. Oritz's patient who has been [facility] [place] since May 2019 has been managed for multiple medical problem including debility for chronic lower back pain and advance COPD right-sided lung cancer was treated and patient claimed that his in full remission. Also patient had left-sided hemiparesis from old stroke and multiple other medical problem including heart disease chronic pain syndrome on multi-medication had nerve stimulant in the spine as well and seen pain management at [facility]. Patient also had history of seizure has been on Keppra with no seizure activity lately. He is debilitated not been able to ambulate and walk and has been trying to wean himself off pain meds gradually not successful so far. Patient presented to demurs department at [facility] with 2 days history of increase abdominal pain with no bowel movement with worsening nausea vomiting with fever and chills despite a management and [facility] did not improve ended up being transfer to [facility] emergency department where was seen and evaluated found to have an elevated lipase and amylase CAT scan of the abdomen performed showed small bowel obstruction. Patient did not have any NG tube started on IV hydration was admitted to the hospital nothing by mouth to be seen general surgery and gastroenterology. Patient had his gallbladder surgery long time ago and was previously an alcoholic has not had any alcohol consumption in a while. Patient claimed that his strength to wean himself gradually off pain meds to be able to go home on her wrap to independent living when possible. Review of Systems CONSTITUTIONAL: Overweight no acute respiratory distress. EYES: No icterus sclerae, no conjunctivitis. EARS, NOSE, MOUTH, THROAT, and FACE: No sore throat, lymphadenopathy, carotid bruits or deformity. RESPIRATORY: Mild shortness of breath no cough wheezes. CARDIOVASCULAR: No CP, Palpitation, PND, Orthopnea, or angina. GASTROINTESTINAL: Significant abdominal pain with nausea vomiting slight distention no bowel movement for more than 3 days.. GENITOURINARY: Negative for Hematuria or UTI, no kidney stones. INTEGUMENT/BREAST: Negative for any muscular injury with mild osteoarthritis.. HEMATOLOGIC/LYMPHATIC: Negative for bleed or purpura. MUSCULOSKELTAL: Generalized back and muscle pain. NEURLOGICAL: History of stroke with generalized weakness and abnormal balance and gait with severe lower back pain with weakness of the lower extremity as well. BEHAVIORAL/PSYCH: Negative. ENDOCRINE: Negative. Past Medical History Past Medical History: Coronary Artery Disease (CAD), Cancer, COPD, Diabetes Mellitus, GERD/Reflux, Hyperlipidemia, Hypertension, Myocardial Infarction ([place]), Osteoarthritis (OA), Seizure Disorder, Sleep Apnea/CPAP/BIPAP Additional Past Medical History / Comment(s): LAST SEIZURE 2018; lumbar radiculopathy; neuropathy; no CPAP needed per recent sleep study, hx. lung cancer Last Myocardial Infarction Date:: 10/22/10 History of Any Multi-Drug Resistant Organisms: None Reported Past Surgical History: Back Surgery, Cholecystectomy, Heart Catheterization With Stent Additional Past Surgical History / Comment(s): LAMINECTOMY ,fusion,spinal stimulator LEFT SHOULDER sx, 07-31-15 revison thoracic laminectomy t10- t11/removal of neuro stimulator and wires removed, fused L1&2 to a cage fusion that was previously put in to L3,4,5. May 27/2018. 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 Smoking Status: Former smoker Past Alcohol Use History: None Reported Additional Past Alcohol Use History / Comment(s): STARTED SMOKING 1977, smokes 1 ppd, smoking cessation booklet given to pt. 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 [facility] "marijuana no use currently-clear on last drug screen" - Past Family History Brother(s) Family Medical History: Deep Vein Thrombosis (DVT) Mother Family Medical History: Osteoarthritis (OA) Additional Family Medical History / Comment(s): psoriases, Parkinsons Father Family Medical History: Coronary Artery Disease (CAD) Additional Family Medical History / Comment(s): heart problems- quad bypass, Medications and Allergies Home Medications Medication Instructions Recorded Confirmed Type metFORMIN HCL 1,000 mg PO BID@0800,1700 07/24/15 02/12/20 History Atorvastatin [Lipitor] 20 mg PO HS@209903/28/19 02/12/20 History levETIRAcetam [Keppra] 750 mg PO DAILY@1400 03/28/19 02/12/20 History Acetaminophen [Tylenol] 650 mg PO Q6H PRN 05/30/19 02/12/20 History Insulin Glargine,Hum.rec.anlog 14 unit SQ HS@209905/30/19 02/12/20 History [Basaglar Lucianopen U-100] Linagliptin [Tradjenta] 5 mg PO DAILY@0900 05/30/19 02/12/20 History Midodrine HCl [ProAmatine] 10 mg PO TID@0900,1300,2099 PRN 05/30/19 02/12/20 History rOPINIRole HCL [Requip] 3 mg PO TID@0600,1400,2200 05/30/19 02/12/20 History Cyclobenzaprine [Flexeril] 5 mg PO TID@0600,1400,219907/21/19 02/12/20 History DULoxetine HCL [Cymbalta] 60 mg PO BID@0900,209907/21/19 02/12/20 History Divalproex Sodium [Depakote] 500 mg PO TID@0900,1300,209907/21/19 02/12/20 History Ergocalciferol [Vitamin D2 50,000 units PO ANDERSON@0907/21/19 02/12/20 History (DRISDOL)] Montelukast [Singulair] 10 mg PO HS@209907/21/19 02/12/20 History Sertraline [Zoloft] 50 mg PO DAILY@0900 07/21/19 02/12/20 History Famotidine [Pepcid] 20 mg PO BID@0900,209911/20/19 02/12/20 History Furosemide [Lasix] 20 mg PO DIRECTED 11/20/19 02/12/20 History Melatonin 10 mg PO HS@209911/20/19 02/12/20 History Morphine Sulfate [Morphine Sulfate 15 mg PO Q6H PRN 11/20/19 02/12/20 History ER] Insulin Aspart [NovoLOG] See Protocol SQ TID-W/MEALS PRN 11/29/19 02/12/20 History Aspirin 81 mg PO DAILY@0900 02/12/20 02/12/20 History Azelastine HCl 2 spray EA NOSTRIL BID PRN 02/12/20 02/12/20 History Bisacodyl 10 mg RECTAL DAILY PRN 02/12/20 02/12/20 History Cyclobenzaprine [Flexeril] 5 mg PO TID PRN 02/12/20 02/12/20 History Gabapentin [Neurontin] 400 mg PO HS@209902/12/20 02/12/20 History Loperamide [Imodium] 2 mg PO DIRECTED 02/12/20 02/12/20 History Metoprolol Tartrate [Lopressor] 12.5 mg PO BID@0900,2100 PRN 02/12/20 02/12/20 History Potassium Chloride [K-Tab ER] 20 meq PO DAILY@0900 02/12/20 02/12/20 History Pregabalin [Lyrica] 100 mg PO BID@0900,2100 02/12/20 02/12/20 History fentaNYL 75MCG/HR PATCH [Duragesic 75 mcg TRANSDERM Q72H 02/12/20 02/12/20 History 75MCG/HR] guaiFENesin [Mucinex] 600 mg PO BID 02/12/20 02/12/20 History levETIRAcetam [Keppra] 1,500 mg PO BID@0900,2100 02/12/20 02/12/20 History Allergies Allergy/AdvReac Type Severity Reaction Status Date / Time No Known Allergies Allergy Verified 02/12/20 09:46 Physical Exam Vitals: Vital Signs Temp Pulse Resp BP Pulse Ox 02/12/20 07:24 98.1 F 104 H 16 106/84 97 02/12/20 05:00 98.5 F 109 H 18 127/69 97 02/12/20 01:30 108 H 18 134/77 97 02/11/20 23:34 111 H 18 107/65 98 02/11/20 21:53 99.4 F 122 H 24 133/77 100 Intake and Output 02/11/20 02/12/20 02/12/20 22:59 06:59 14:59 Other: Weight 113.398 kg General Appearance: Alert, cooperative, no distress, appears stated age. Overweight Neck HEENT: Supple, no lymphadenopathy, no thyroid enlargement, no carotid bruits. Lungs: Decreased breath some bilaterally with fine rhonchi positive mild expiratory wheezes no crackles. Chest Wall: Decreased expansion with inspiration scar tissue in the right side from previous surgery no deformity of the chest wall area no significant pain or tenderness. Heart: Regular rate and rhythm, S1, S2 positive history normal, no murmur, rub or gallop. Back: Scar tissue in significant pain and discomfort in the thoracic and lumbar spine area. Abdomen: Distended hyper bowel sounds with slight tenderness in the lower abdominal region area and mid epigastric area as well no rigidity. Extremities: Extremities normal, atraumatic, no cyanosis or edema. Pulses: 2+ and symmetric. Skin: Skin color, texture, tugor normal, no rashes or lesions. Neurologic: Alert oriented x3 cranial nerves II through XII intact, positive generalized weakness worsening the left than the right side with significant weakness of the lower extremity as well. Results CBC & Chem 7: 02/11/20 22:00 02/11/20 22:00 Labs: Abnormal Lab Results - Last 24 Hours (Table) 02/11/20 02/11/20 Range/Units 22:00 22:00 WBC 11.2 H (3.8-10.6) k/uL Neutrophils # 9.2 H (1.3-7.7) k/uL Chloride 95 L (98-107) mmol/L Creatinine 0.57 L (0.66-1.25) mg/dL Glucose 218 H (74-99) mg/dL Calcium 10.5 H (8.4-10.2) mg/dL Amylase 130 H (30-110) U/L Lipase 851 H (23-300) U/L Thrombosis Risk Factor Assmnt - DVT/VTE Prophylaxis DVT/VTE Prophylaxis: Pharmacologic Prophylaxis ordered, Mechanical Prophylaxis ordered Assessment and Plan Assessment: 1 acute abdominal pain: Combination of small bowel obstruction along with acute pancreatitis continue to treat underlying disease. 2 small bowel obstruction: With more stool impaction, continue nothing by mouth continue fluid resuscitation and pain management consult general surgery repeat abdominal x-ray and if continued to have intractable nausea vomiting will require an NG tube. 3 acute pancreatitis: His gallbladder surgery was long time ago but still have large common bile duct, we'll consult GI if patient continue having symptoms all her pancreatitis to resolve patient might need to go for an MRCP or ERCP. 4 history of lung cancer: Post surgery and resection according to patient did not have any chemo or radiation afterward and has been in remission. 5 chronic pain syndrome: Patient has been on fentanyl 75 g every 3 days along with morphine 15 mg twice a day and hydrocodone as needed for breakthrough pain. 6 COPD: Continue Singulair along with MDI Ventolin for now. Continue O2 to keep his pulse ox above 92 percentile. 7 type 2 diabetes: Continue patient on basically her along with NovoLog was on Tradjenta and metformin both will be held for now continue Accu-Chek with sliding scales coverage. 8 atherosclerotic heart disease: Patient remain on Lasix and atorvastatin. 9 history of seizure: Remain on Keppra with no seizure activity. 10 chronic depression: Remain on Zoloft Cymbalta and Depakote. No behavioral issues lately. 11 restless leg syndrome: Remain on Requip 3 mg 3 times a day. 12 hypotension: Patient is on midodrine 10 mg 3 times a day this is most likely reactive to pain management causing blood pressure to be very low but controlled mitogen currently. 13 hyperlipidemia: Remain on Lipitor 20 mg a day. 14 chronic neuropathy: Continue patient on gabapentin 400 mg daily at bedtime along with Lyrica 100 mg twice a day which is a weird combination apparently was approved by pain management. 15 hypercalcemia: Repeat CMP after hydration if remain elevated parathyroid hormone will be order more calcium study can be done. 16 GI prophylaxis: Patient be on pantoprazole 40 mg twice a day. 17 DVT prophylaxis: Patient will be on heparin 5000 units of cutaneous twice a day. CODE STATUS: Full code. Admit patient to inpatient status for more than 2 nights.
[2020-02-12] MEDS ORDERED: LOPERAMIDE 2 MG CAP PO PRN (11:45)
--- NOTE | 2020-02-12 11:50 | P.GSCN ---
History of Present Illness Consult date: 02/12/20 Reason for Consult: Pancreatitis, partial small bowel obstruction History of present illness: Is a 54-year-old male was admitted through the emergency room with complaints of abdominal pain. Patient's workup found evidence of pancreatitis and partial small bowel obstruction. Patient states that he had some nausea and vomiting. He states he was constipated prior to arrival at the hospital. He has had 2 bowel movements overnight. Past Medical History Past Medical History: Coronary Artery Disease (CAD), Cancer, COPD, Diabetes Mellitus, GERD/Reflux, Hyperlipidemia, Hypertension, Myocardial Infarction ([place]), Osteoarthritis (OA), Seizure Disorder, Sleep Apnea/CPAP/BIPAP Additional Past Medical History / Comment(s): LAST SEIZURE 2018; lumbar radiculopathy; neuropathy; no CPAP needed per recent sleep study, hx. lung cancer Last Myocardial Infarction Date:: 10/22/10 History of Any Multi-Drug Resistant Organisms: None Reported Past Surgical History: Back Surgery, Cholecystectomy, Heart Catheterization With Stent Additional Past Surgical History / Comment(s): LAMINECTOMY ,fusion,spinal stimulator LEFT SHOULDER sx, 07-31-15 revison thoracic laminectomy t10- t11/removal of neuro stimulator and wires removed, fused L1&2 to a cage fusion that was previously put in to L3,4,5. May 27/2018. 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 Smoking Status: Former smoker Past Alcohol Use History: None Reported Additional Past Alcohol Use History / Comment(s): STARTED SMOKING 1977, smokes 1 ppd, smoking cessation booklet given to pt. 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[place] states "marijuana no use currently-clear on last drug screen" - Past Family History Brother(s) Family Medical History: Deep Vein Thrombosis (DVT) Mother Family Medical History: Osteoarthritis (OA) Additional Family Medical History / Comment(s): psoriases, Parkinsons Father Family Medical History: Coronary Artery Disease (CAD) Additional Family Medical History / Comment(s): heart problems- quad bypass, Medications and Allergies Home Medications Medication Instructions Recorded Confirmed Type metFORMIN HCL 1,000 mg PO BID@0800,1700 07/24/15 02/12/20 History Atorvastatin [Lipitor] 20 mg PO HS@209903/28/19 02/12/20 History levETIRAcetam [Keppra] 750 mg PO DAILY@1400 03/28/19 02/12/20 History Acetaminophen [Tylenol] 650 mg PO Q6H PRN 05/30/19 02/12/20 History Insulin Glargine,Hum.rec.anlog 14 unit SQ HS@209905/30/19 02/12/20 History [Basaglar Kwikpen U-100] Linagliptin [Tradjenta] 5 mg PO DAILY@0900 05/30/19 02/12/20 History Midodrine HCl [ProAmatine] 10 mg PO TID@0900,1300,2100 PRN 05/30/19 02/12/20 History rOPINIRole HCL [Requip] 3 mg PO TID@0600,1400,2200 05/30/19 02/12/20 History Cyclobenzaprine [Flexeril] 5 mg PO TID@0600,1400,2200 07/21/19 02/12/20 History DULoxetine HCL [Cymbalta] 60 mg PO BID@0900,209907/21/19 02/12/20 History Divalproex Sodium [Depakote] 500 mg PO TID@0900,1300,209907/21/19 02/12/20 History Ergocalciferol [Vitamin D2 50,000 units PO ANDERSON@0900 07/21/19 02/12/20 History (DRISDOL)] Montelukast [Singulair] 10 mg PO HS@209907/21/19 02/12/20 History Sertraline [Zoloft] 50 mg PO DAILY@0900 07/21/19 02/12/20 History Famotidine [Pepcid] 20 mg PO BID@0900,209911/20/19 02/12/20 History Furosemide [Lasix] 20 mg PO DIRECTED 11/20/19 02/12/20 History Melatonin 10 mg PO HS@209911/20/19 02/12/20 History Morphine Sulfate [Morphine Sulfate 15 mg PO Q6H PRN 11/20/19 02/12/20 History ER] Insulin Aspart [NovoLOG] See Protocol SQ TID-W/MEALS PRN 11/29/19 02/12/20 History Aspirin 81 mg PO DAILY@0900 02/12/20 02/12/20 History Azelastine HCl 2 spray EA NOSTRIL BID PRN 02/12/20 02/12/20 History Bisacodyl 10 mg RECTAL DAILY PRN 02/12/20 02/12/20 History Cyclobenzaprine [Flexeril] 5 mg PO TID PRN 02/12/20 02/12/20 History Gabapentin [Neurontin] 400 mg PO HS@209902/12/20 02/12/20 History Loperamide [Imodium] 2 mg PO DIRECTED 02/12/20 02/12/20 History Metoprolol Tartrate [Lopressor] 12.5 mg PO BID@0900,2100 PRN 02/12/20 02/12/20 History Potassium Chloride [K-Tab ER] 20 meq PO DAILY@0900 02/12/20 02/12/20 History Pregabalin [Lyrica] 100 mg PO BID@0900,2100 02/12/20 02/12/20 History fentaNYL 75MCG/HR PATCH [Duragesic 75 mcg TRANSDERM Q72H 02/12/20 02/12/20 Histo ry 75MCG/HR] guaiFENesin [Mucinex] 600 mg PO BID 02/12/20 02/12/20 History levETIRAcetam [Keppra] 1,500 mg PO BID@0900,2100 02/12/20 02/12/20 History Allergies Allergy/AdvReac Type Severity Reaction Status Date / Time No Known Allergies Allergy Verified 02/12/20 09:46 Surgical - Exam Vital Signs Temp Pulse Resp BP Pulse Ox 99.4 F 122 H 24 133/77 100 02/11/20 21:53 02/11/20 21:53 02/11/20 21:53 02/11/20 21:53 02/11/20 21:53 - General well developed, no distress - Eyes PERRL - ENT normal pinna - Neck no masses - Respiratory normal expansion - Cardiovascular Rhythm: regular - Abdomen Obese Abdomen: non tender Results - Labs 02/11/20 22:00 02/11/20 22:00 Abnormal Lab Results - Last 24 Hours (Table) 02/11/20 02/11/20 02/12/20 Range/Units 22:00 22:00 09:19 WBC 11.2 H (3.8-10.6) k/uL Neutrophils # 9.2 H (1.3-7.7) k/uL Chloride 95 L (98-107) mmol/L Creatinine 0.57 L (0.66-1.25) mg/dL Glucose 218 H (74-99) mg/dL POC Glucose (mg/dL) (75-99) mg/dL Calcium 10.5 H (8.4-10.2) mg/dL Amylase 130 H (30-110) U/L Lipase 851 H (23-300) U/L Ur Specific [place] 1.045 H (1.001-1.035) Urine Protein Trace H (Negative) Urine Ketones Trace H (Negative) 02/12/20 Range/Units 11:30 WBC (3.8-10.6) k/uL Neutrophils # (1.3-7.7) k/uL Chloride (98-107) mmol/L Creatinine (0.66-1.25) mg/dL Glucose (74-99) mg/dL POC Glucose (mg/dL) 116 H (75-99) mg/dL Calcium (8.4-10.2) mg/dL Amylase (30-110) U/L Lipase (23-300) U/L Ur Specific [place] (1.001-1.035) Urine Protein (Negative) Urine Ketones (Negative) Diabetes panel 02/11/20 Range/Units 22:00 Sodium 138 (137-145) mmol/L Potassium 3.5 (3.5-5.1) mmol/L Chloride 95 L (98-107) mmol/L Carbon Dioxide 23 (22-30) mmol/L BUN 15 (9-20) mg/dL Creatinine 0.57 L (0.66-1.25) mg/dL Glucose 218 H (74-99) mg/dL Calcium 10.5 H (8.4-10.2) mg/dL AST 40 (17-59) U/L ALT 32 (4-49) U/L Alkaline Phosphatase 102 (38-126) U/L Total Protein 7.7 (6.3-8.2) g/dL Albumin 4.9 (3.5-5.0) g/dL Calcium panel 02/11/20 Range/Units 22:00 Calcium 10.5 H (8.4-10.2) mg/dL Albumin 4.9 (3.5-5.0) g/dL Pituitary panel 02/11/20 Range/Units 22:00 Sodium 138 (137-145) mmol/L Potassium 3.5 (3.5-5.1) mmol/L Chloride 95 L (98-107) mmol/L Carbon Dioxide 23 (22-30) mmol/L BUN 15 (9-20) mg/dL Creatinine 0.57 L (0.66-1.25) mg/dL Glucose 218 H (74-99) mg/dL Calcium 10.5 H (8.4-10.2) mg/dL Adrenal panel 02/11/20 Range/Units 22:00 Sodium 138 (137-145) mmol/L Potassium 3.5 (3.5-5.1) mmol/L Chloride 95 L (98-107) mmol/L Carbon Dioxide 23 (22-30) mmol/L BUN 15 (9-20) mg/dL Creatinine 0.57 L (0.66-1.25) mg/dL Glucose 218 H (74-99) mg/dL Calcium 10.5 H (8.4-10.2) mg/dL Total Bilirubin 1.0 (0.2-1.3) mg/dL AST 40 (17-59) U/L ALT 32 (4-49) U/L Alkaline Phosphatase 102 (38-126) U/L Total Protein 7.7 (6.3-8.2) g/dL Albumin 4.9 (3.5-5.0) g/dL Amylase and lipase are elevated - Imaging CT scan - abdomen: report reviewed (Small bowel dilatation with air-fluid levels) Assessment and Plan Assessment: Probable partial small bowel obstruction/ileus. Patient may have an ileus related to his pancreatitis. The patient's abdominal pain has resolved. He is tolerating clear liquid diet. We will observe him currently.
--- NOTE | 2020-02-12 12:00 | CONS ---
CONSULTATION DATE OF CONSULTATION: February 12, 2020. REQUESTING PHYSICIAN: Dr. Handy. REASON FOR CONSULTATION: Abdominal pain. HISTORY OF PRESENT ILLNESS: The patient is a 54-year-old pleasant white male came to the emergency room complaining of epigastric pain for the last 3 days duration. The pain was mostly located in the epigastric area associated with some nausea but no emesis. He felt somewhat constipated for 3 days, but yesterday had a bowel movement and felt better. He came into the emergency room and subsequently had some labs done that showed elevated amylase and lipase consistent with pancreatitis. Lipase was elevated at 851 and amylase was 130. The patient denies ever having these symptoms in the past. He denies any prior history of peptic ulcer disease or recent NSAID use. Since being in the hospital, his abdominal pain has been gradually improving. He had 2 loose bowel movements this morning and he feels even much better. He did have a CT of the abdomen and pelvis done in the emergency room that showed evidence of multiple mildly dilated fluid-filled loops of small bowel throughout the abdomen suspicious for partial small-bowel obstruction. Common bile duct dilated at 1.6 cm. PAST MEDICAL HISTORY: Significant for coronary artery disease, diabetes mellitus, hypertension, gastroesophageal reflux disease, hyperlipidemia, degenerative joint disease, seizure disorder, sleep apnea, status post WI in the past. PAST SURGICAL HISTORY: Cardiac catheterization with stent placement, back surgery, cholecystectomy, laminectomy. MEDICATIONS: At home include: Tylenol, Insulin, Tradjenta, Requip, Flexeril, Cymbalta, Depakote, Drisdol, Lopressor, Singulair, Zoloft, Keppra, Propulsid, Lasix, morphine sulfate, Zofran, fentanyl, NovoLog, nasal spray. ALLERGIES: None. SOCIAL HISTORY: Marijuana use. FAMILY HISTORY: Brother had DVT. Mother had degenerative joint disease, Parkinson's and psoriasis. Father had coronary artery disease. REVIEW OF SYSTEMS: CARDIOPULMONARY: No chest pain. No shortness of breath. no dysuria or hematuria. MUSCULOSKELETAL unremarkable other than chronic back pain. NEUROLOGY unremarkable. PSYCHIATRIC unremarkable. ENT/vision unremarkable. CONSTITUTIONAL: No recent weight loss. He denies any fever, chills, or night sweats. PHYSICAL EXAMINATION: He appears comfortable. No apparent distress. Vital signs are stable. Blood pressure 123/83, pulse rate 101, temperature 98.4. HEENT examination unremarkable. Conjunctivae pink. Sclerae anicteric. Oral cavity no lesions. NECK: No JVD or lymph node enlargement. CHEST: The chest was clear to auscultation. HEART: Regular rate and rhythm. ABDOMEN: Soft, it was nontender, nondistended. Liver and spleen were not palpable. Bowel sounds are positive. EXTREMITIES: No pedal edema. SKIN no rashes. NEURO: He is alert and oriented x3. No focal deficits. LABS: Done at the time of admission to the hospital: WBC 11.2, hemoglobin 13.5, platelets normal. Basic metabolic panel is within normal limits. BUN and creatinine are 15 and 0.57. Amylase is 130, lipase is 851. CT of the abdomen showed dilated loops of small bowel suspicious for partial small-bowel obstruction and dilated common bile duct. IMPRESSION: 1. This is a patient who presents to the hospital with acute onset of epigastric pain for the last 3 days duration associated with some nausea but no emesis noted to have elevated amylase and lipase consistent with mild acute pancreatitis. Clinically, he is improving. 2. Abdominal pain. CT scan showing dilated small bowel loops consistent with partial small-bowel obstruction. The patient had multiple bowel movements this morning and is feeling much better. It appears that the bowel obstruction is gradually resolving. He does have prior history of cholecystectomy. 3. History of seizure disorder. 4. History of coronary artery disease status post WI in the past. 5. History of hypertension. 6. Hyperlipidemia. RECOMMENDATIONS: 1. Start him on a clear liquid diet. 2. Agree with surgical consultation. 3. Monitor labs closely. 4. Continue with Protonix 40 mg daily. 5. Repeat labs in the morning. We will follow with you closely. Thank you for this consultation. MMODL / IJN: [id number] /
[2020-02-12] MEDS: CYCLOBENZAPRINE 5 MG TAB PO SCH ×2 (13:03→20:53)
[2020-02-12 17:01] LABS: Glucose,Whole Blood 128 mg/dL (75-99)
[2020-02-12 20:43] LABS: Glucose,Whole Blood 191 mg/dL (75-99)
[2020-02-12] MEDS: guaiFENesin 600 MG TABLET.ER PO SCH (20:52)
[2020-02-12] MEDS: INSULIN DETEMIR (LEVEMIR) 100 UNIT/ML SYR SQ SCH (20:52)
[2020-02-12] MEDS: PREGABALIN 100 MG CAP PO SCH (20:53)
[2020-02-12] MEDS: ATORVASTATIN 20 MG TAB PO SCH (20:53)
[2020-02-12] MEDS: MONTELUKAST 10 MG TAB PO SCH (20:54)
[2020-02-12] MEDS ORDERED: METOPROLOL TARTRATE 12.5 MG TAB PO PRN (21:00)
[2020-02-12] MEDS ORDERED: levETIRAcetam 500 MG TAB PO SCH (21:00)
[2020-02-12] MEDS ORDERED: AMITRIPTYLINE HCL 10 MG TAB PO SCH (21:00)
[2020-02-13] MEDS: LORazepam 2 MG/ML INJ IV PRN ×3 (00:10→21:22)
[2020-02-13] MEDS: HYDROmorphone 1 MG/ML 1 ML SYRINGE IVP PRN ×4 (00:58→20:14)
[2020-02-13] MEDS: CYCLOBENZAPRINE 5 MG TAB PO SCH ×3 (05:13→20:38)
[2020-02-13 07:15] LABS: Glucose,Whole Blood 105 mg/dL (75-99)
[2020-02-13 07:56] LABS: Basophils % (A) 0 %; Eosinophils # (A) 0.3 k/uL (0-0.7); Eosinophils % (A) 5 %; Lymphocytes % (A) 35 %; MCH 27.7 pg (25.0-35.0); MCHC 31.5 g/dL (31.0-37.0); MCV 87.9 fL (80.0-100.0); Mean Platelet Volume 7.4; Monocytes # (A) 0.4 k/uL (0-1.0); Monocytes % (A) 7 %; Neutrophils # (A) 2.8 k/uL (1.3-7.7); Neutrophils % (A) 51 %; Platelet Count 176 k/uL (150-450); RBC 3.64 m/uL (4.30-5.90); RDW 14.5 % (11.5-15.5); WBC 5.5 k/uL (3.8-10.6)
[2020-02-13 08:00] LABS: HGB 10.1 gm/dL (13.0-17.5)
[2020-02-13 08:21] LABS: ALT 23 U/L (4-49); AST 22 U/L (17-59); African American GFR (CKD) >90 (>60 ml/min/1.73 sqM); Albumin 3.3 g/dL (3.5-5.0); Alkaline Phosphatase 66 U/L (38-126); Amylase 44 U/L (30-110); Anion Gap 6 mmol/L; Blood Urea Nitrogen 13 mg/dL (9-20); Calcium 8.6 mg/dL (8.4-10.2); Carbon Dioxide 30 mmol/L (22-30); Chloride 103 mmol/L (98-107); Glucose 87 mg/dL (74-99); Non-African American GFR(CKD) >90 (>60 ml/min/1.73 sqM); Sodium 139 mmol/L (137-145); Total Bilirubin 0.3 mg/dL (0.2-1.3); Total Protein 5.7 g/dL (6.3-8.2)
[2020-02-13] MEDS: INSULIN ASPART (NovoLOG) 100 UNIT/ML VIAL SQ SCH ×3 (08:41→16:59)
[2020-02-13] MEDS: guaiFENesin 600 MG TABLET.ER PO SCH ×2 (09:01→20:36)
[2020-02-13] MEDS: FAMOTIDINE 20 MG TAB PO SCH ×2 (09:01→20:35)
[2020-02-13] MEDS: DIVALPROEX 500 MG TABLET.DR PO SCH ×3 (09:01→20:36)
[2020-02-13] MEDS: DULoxetine HCL 60 MG CAPSULE.DR PO SCH ×2 (09:01→20:35)
[2020-02-13] MEDS: FUROSEMIDE 20 MG TAB PO SCH (09:01)
[2020-02-13] MEDS: MIDODRINE 5 MG TAB PO SCH ×3 (09:02→20:36)
[2020-02-13] MEDS: ENOXAPARIN 40 MG/0.4 ML SYRINGE SQ SCH (09:02)
--- NOTE | 2020-02-13 09:27 | P.PN ---
Subjective Progress Note Date: 02/13/20 Principal diagnosis: Acute abdominal pain, small bowel obstruction, acute pancreatitis, chronic 54-year-old male one of Dr. Ortiz's patient who has been [facility] since May 2019 has been managed for multiple medical problem including debility for chronic lower back pain and advance COPD right-sided lung cancer was treated and patient claimed that his in full remission. Also patient had left-sided hemiparesis from old stroke and multiple other medical problem including heart disease chronic pain syndrome on multi-medication had nerve stimulant in the spine as well and seen pain management at [facility]. Patient also had history of seizure has been on Keppra with no seizure activity lately. He is debilitated not been able to ambulate and walk and has been trying to wean himself off pain meds gradually not successful so far. Patient presented to demurs department at [facility] with 2 days history of increase abdominal pain with no bowel movement with worsening nausea vomiting with fever and chills despite a management and Regen a Chin did not improve ended up being transfer to [facility] emergency department where was seen and evaluated found to have an elevated lipase and amylase CAT scan of the abdomen performed showed small bowel obstruction. Patient did not have any NG tube started on IV hydration was admitted to the hospital nothing by mouth to be seen general surgery and gastroenterology. Patient had his gallbladder surgery long time ago and was previously an alcoholic has not had any alcohol consumption in a while. Patient claimed that his strength to wean himself gradually off pain meds to be able to go home on her wrap to independent living when possible. 02/12: Patient is doing much better he had bowel movement, decreased abdominal pain, his lipase and amylase are down to normal. Another x-ray be done today and if patient is doing well hopefully can be discharged back to [facility] tomorrow. Objective - Vital Signs Vital signs: Vital Signs Temp 97.9 F 02/13/20 01:25 Pulse 73 02/13/20 01:25 Resp 19 02/13/20 01:25 BP 127/79 02/13/20 01:25 Pulse Ox 92 L 02/13/20 01:25 Intake & Output 02/12/20 02/13/20 02/13/20 18:59 06:59 18:59 Intake Total 550 Balance 550 Intake: Oral 550 Other: Voiding Method Bedpan Urinal # Voids 1 1 # Bowel Movements 2 1 - Exam Review of Systems CONSTITUTIONAL: Overweight no acute respiratory distress. EYES: No icterus sclerae, no conjunctivitis. EARS, NOSE, MOUTH, THROAT, and FACE: No sore throat, lymphadenopathy, carotid bruits or deformity. RESPIRATORY: Mild shortness of breath no cough wheezes. CARDIOVASCULAR: No CP, Palpitation, PND, Orthopnea, or angina. GASTROINTESTINAL: Significant abdominal pain with nausea vomiting slight distention no bowel movement for more than 3 days.. GENITOURINARY: Negative for Hematuria or UTI, no kidney stones. INTEGUMENT/BREAST: Negative for any muscular injury with mild osteoarthritis.. HEMATOLOGIC/LYMPHATIC: Negative for bleed or purpura. MUSCULOSKELTAL: Generalized back and muscle pain. NEURLOGICAL: History of stroke with generalized weakness and abnormal balance and gait with severe lower back pain with weakness of the lower extremity as well. BEHAVIORAL/PSYCH: Negative. ENDOCRINE: Negative. Physical Exam Vitals: General Appearance: Alert, cooperative, no distress, appears stated age. Overweight Neck HEENT: Supple, no lymphadenopathy, no thyroid enlargement, no carotid bruits. Lungs: Decreased breath some bilaterally with fine rhonchi positive mild expiratory wheezes no crackles. Chest Wall: Decreased expansion with inspiration scar tissue in the right side from previous surgery no deformity of the chest wall area no significant pain or tenderness. Heart: Regular rate and rhythm, S1, S2 positive history normal, no murmur, rub o r gallop. Back: Scar tissue in significant pain and discomfort in the thoracic and lumbar spine area. Abdomen: Distended hyper bowel sounds with slight tenderness in the lower abdominal region area and mid epigastric area as well no rigidity. Extremities: Extremities normal, atraumatic, no cyanosis or edema. Pulses: 2+ and symmetric. Skin: Skin color, texture, tugor normal, no rashes or lesions. Neurologic: Alert oriented x3 cranial nerves II through XII intact, positive generalized weakness worsening the left than the right side with significant weakness of the lower extremity as well. - Labs CBC & Chem 7: 02/13/20 06:55 02/13/20 06:55 Labs: Abnormal Lab Results - Last 24 Hours (Table) 02/12/20 02/12/20 02/12/20 Range/Units 09:19 11:30 16:59 RBC (4.30-5.90) m/uL Hgb (13.0-17.5) gm/dL Hct (39.0-53.0) % Creatinine (0.66-1.25) mg/dL POC Glucose (mg/dL) 116 H 128 H (75-99) mg/dL Total Protein (6.3-8.2) g/dL Albumin (3.5-5.0) g/dL Ur Specific [place] 1.045 H (1.001-1.035) Urine Protein Trace H (Negative) Urine Ketones Trace H (Negative) 02/12/20 02/13/20 02/13/20 Range/Units 20:41 06:55 06:55 RBC 3.64 L (4.30-5.90) m/uL Hgb 10.1 L D (13.0-17.5) gm/dL Hct 32.0 L (39.0-53.0) % Creatinine 0.49 L (0.66-1.25) mg/dL POC Glucose (mg/dL) 191 H (75-99) mg/dL Total Protein 5.7 L (6.3-8.2) g/dL Albumin 3.3 L (3.5-5.0) g/dL Ur Specific [place] (1.001-1.035) Urine Protein (Negative) Urine Ketones (Negative) 02/13/20 Range/Units 07:13 RBC (4.30-5.90) m/uL Hgb (13.0-17.5) gm/dL Hct (39.0-53.0) % Creatinine (0.66-1.25) mg/dL POC Glucose (mg/dL) 105 H (75-99) mg/dL Total Protein (6.3-8.2) g/dL Albumin (3.5-5.0) g/dL Ur Specific [place] (1.001-1.035) Urine Protein (Negative) Urine Ketones (Negative) Assessment and Plan Assessment: 1 acute abdominal pain: Combination of small bowel obstruction along with acute pancreatitis continue to treat underlying disease. Both are much better patient had bowel movement decreased distention and his lipase and amylase are improved. 2 small bowel obstruction: With more stool impaction, had bowel movement and no need for NG tube repeat another x-ray possible advance his diet today is okay with surgery. 3 acute pancreatitis: No need for any other intervention at this point his lipase and amylase are settling down to normal. 4 history of lung cancer: Post surgery and resection according to patient did not have any chemo or radiation afterward and has been in remission. 5 chronic pain syndrome: Patient has been on fentanyl 75 g every 3 days along with morphine 15 mg twice a day and hydrocodone as needed for breakthrough pain. 6 COPD: Continue Singulair along with PETE Ventlaw for now. Continue O2 to keep his pulse ox above 92 percentile. 7 type 2 diabetes: Continue patient on basically her along with NovoLog was on Tradjenta and metformin both will be held for now continue Accu-Chek with sliding scales coverage. 8 atherosclerotic heart disease: Patient remain on Lasix and atorvastatin. 9 history of seizure: Remain on Keppra with no seizure activity. 10 chronic depression: Remain on Zoloft Cymbalta and Depakote. No behavioral issues lately. 11 restless leg syndrome: Remain on Requip 3 mg 3 times a day. 12 hypotension: Patient is on midodrine 10 mg 3 times a day this is most likely reactive to pain management causing blood pressure to be very low but controlled mitogen currently. 13 hyperlipidemia: Remain on Lipitor 20 mg a day. 14 chronic neuropathy: Continue patient on gabapentin 400 mg daily at bedtime along with Lyrica 100 mg twice a day which is a weird combination apparently was approved by pain management. 15 hypercalcemia: Repeat CMP after hydration if remain elevated parathyroid hormone will be order more calcium study can be done. Discharge planning: If patient is doing well my be able to send him back to [facility] tomorrow.
[2020-02-13] MEDS: POTASSIUM CHLORIDE ER 20 MEQ TAB.ER PO SCH (09:28)
[2020-02-13] MEDS: PREGABALIN 100 MG CAP PO SCH ×2 (09:28→20:36)
[2020-02-13] MEDS: SERTRALINE 50 MG TAB PO SCH (09:28)
[2020-02-13] MEDS: PANTOPRAZOLE 40 MG/10 ML VIAL IVP SCH (09:29)
[2020-02-13 11:27] LABS: Glucose,Whole Blood 127 mg/dL (75-99)
--- NOTE | 2020-02-13 13:14 | P.PN ---
Subjective Progress Note Date: 02/13/20 CHIEF COMPLAINT: Pancreatitis, small bowel obstruction HISTORY OF PRESENT ILLNESS: Patient examined at the bedside with Dr. Wheeler. Patient denies abdominal pain. Patient is tolerating diet. Denies nausea or vomiting. Passing flatus and having bowel movements. PHYSICAL EXAM: VITAL SIGNS: Reviewed. GENERAL: Well-developed in no acute distress. HEENT: No sclera icterus. Extraocular movements grossly intact. Moist buccal mucosa. Head is atraumatic, normocephalic. ABDOMEN: Soft. Nondistended. Nontender. NEUROLOGIC: Alert and oriented. Cranial nerves II through XII grossly intact. ASSESSMENT: 1. Pancreatitis 2. Small bowel obstruction PLAN: -Advance diet. If patient tolerates, anticipate discharge tomorrow Nurse practitioner note has been reviewed by physician. Signing provider agrees with the documented findings, assessment, and plan of care. Objective - Vital Signs Vital signs: Vital Signs Temp 97.5 F L 02/13/20 09:32 Pulse 80 02/13/20 09:32 Resp 18 02/13/20 09:32 BP 144/83 02/13/20 09:32 Pulse Ox 100 02/13/20 09:32 Intake & Output 02/12/20 02/13/20 02/13/20 18:59 06:59 18:59 Intake Total 550 Balance 550 Intake: Oral 550 Other: Voiding Method Bedpan Urinal # Voids 1 1 # Bowel Movements 2 1 - Labs CBC & Chem 7: 02/13/20 06:55 02/13/20 06:55 Labs: Abnormal Lab Results - Last 24 Hours (Table) 02/12/20 02/12/20 02/13/20 Range/Units 16:59 20:41 06:55 RBC 3.64 L (4.30-5.90) m/uL Hgb 10.1 L D (13.0-17.5) gm/dL Hct 32.0 L (39.0-53.0) % Creatinine (0.66-1.25) mg/dL POC Glucose (mg/dL) 128 H 191 H (75-99) mg/dL Total Protein (6.3-8.2) g/dL Albumin (3.5-5.0) g/dL 02/13/20 02/13/20 02/13/20 Range/Units 06:55 07:13 11:25 RBC (4.30-5.90) m/uL Hgb (13.0-17.5) gm/dL Hct (39.0-53.0) % Creatinine 0.49 L (0.66-1.25) mg/dL POC Glucose (mg/dL) 105 H 127 H (75-99) mg/dL Total Protein 5.7 L (6.3-8.2) g/dL Albumin 3.3 L (3.5-5.0) g/dL
--- NOTE | 2020-02-13 15:34 | PN ---
PROGRESS NOTE DATE OF DICTATION: 02/13/2020 This patient is a 54-year-old pleasant white male admitted to the hospital with acute onset of severe epigastric pain associated with nausea and vomiting, and subsequently CT scan showed evidence of partial small bowel obstruction. He was also noted to have elevated amylase and lipase consistent with acute pancreatitis. He was started on a clear liquid diet yesterday and he was doing well. He is requesting that his diet be advanced and he wants to go home. He is feeling better. Abdominal pain has completely resolved. He had 2 bowel movements yesterday. No further episodes of nausea, vomiting. No fever, chills, night sweats. PHYSICAL EXAMINATION: He appears comfortable. No apparent distress. VITAL SIGNS: Stable. Blood pressure 144/83, pulse rate 80, temperature 97.5. HEENT examination unremarkable. Conjunctivae pink. Sclerae anicteric. Oral cavity no lesions. NECK: No JVD or lymph node enlargement. CHEST: Clear to auscultation. HEART: Regular rate and rhythm. ABDOMEN: Soft. Bowel sounds are positive. No organomegaly. EXTREMITIES: No pedal edema. SKIN: No rashes. NEUROLOGIC: He is alert and oriented x3. No focal deficits. LABS: Labs from today show that amylase and lipase have normalized at 44 and 60, respectively. Basic metabolic panel is normal. CBC showed WBC of 5.5, hemoglobin 10.1, and platelets normal. IMPRESSION: 1. Acute pancreatitis, resolved. The patient is on a full clear liquid diet, tolerating well. 2. Partial small bowel obstruction. Dr. Wheeler saw the patient yesterday and advised conservative approach. RECOMMENDATIONS: 1. Advance diet as tolerated. 2. Continue Protonix 40 mg daily. 3. Increase ambulation. 4. He can be discharged home today or tomorrow with outpatient followup as needed. Thank you for this consultation. MMODL / IJN: [id number] /
[2020-02-13 16:30] LABS: Glucose,Whole Blood 155 mg/dL (75-99)
--- NOTE | 2020-02-13 17:01 | P.CONS ---
History of Present Illness - Reason for Consult Consult date: 02/13/20 SBO, h/o NSCLC - History of Present Illness This is a 54 yr old [facility] patient, of Dr Laurent, who was diagnosed with squamous cell lung cancer,when a RML lung lesion was initially found during imaging he had in November/2018 when he had a stroke. he had complete staging work up at that time,then on 02/23/2019,he had right middle lobe lobectomy and regional nodes dissection,pathology revealed invasive squamous cell carcinoma, 4cm,negative marigins and negative nodes (T2aN0). He has had right thoracotomy pain since his surgery. On 06/20/2019,brain MRI was negative for mets,MRI of lumbar spine revealed degenerative disease. He had a repeat CT scan of chest on 07/14/2019 which was negative for recurrence. He had CT of thoracic spine on 08/11/2019 which revealed no suspicious finding. He had a bone scan on 08/10/2019 which revealed some uptake at right lateral 7 th rib,attemped biopsy twice was negative (done at [facility],orderd by Dr Ramos). He had PET scan in 11/09, which again revealed no definite evidence of metastatic disease. There was some nonspecific uptake in the right rib cage which was felt to represent postthoracotomy findings. Repeat that was scheduled for 02/09/20 The patient also received nerve block in late 11/09 with marked improvement in symptoms he continues to have right sided rib pain,he has chronic back pain for years,since he fell off a roof,had laminectomy in the past,has significant neuropathy from his diabetes,known to have seizure,has residual neurological deficit from previous 3 strokes he had in the past,ambulates with a walker or wheelchair,he has been a resident at [facility] since February/2019 The patient was admitted this time with progressive abdominal discomfort, distention, over the past few days. Over 2 days prior to admission he developed inability to have a bowel movement and passed gas and subsequently recurrent nausea and vomiting. He came into the emergency room with abdominal imaging showing evidence of small bowel obstruction. Amylase and lipase were elevated, suggestive of pancreatitis.He was therefore admitted for further management. There was no evidence of metastatic disease on imaging. The patient was seen by surgery and managed conservatively with improvement. At the time of my evaluation this a.m. he had reported resumption of bowel movements, and marked improvement in symptoms. Review of Systems Constitutional: Reports chronic pain, Reports fatigue, Reports poor appetite, Reports weakness Eyes: denies blurred vision, denies pain Ears: deny: decreased hearing, ear discharge, earache, tinnitus Ears, nose, mouth and throat: Denies headache, Denies sore throat Cardiovascular: Reports decreased exercise tolerance Respiratory: Denies cough Gastrointestinal: Reports abdominal pain, Reports bloating, Reports c onstipation, Reports nausea, Reports vomiting Genitourinary: Reports as per HPI Musculoskeletal: Reports as per HPI, Reports gait dysfunction, Reports limitation of motion, Reports low back pain, Reports muscle cramps, Reports muscle weakness Integumentary: Denies pruritus, Denies rash Neurological: Reports as per HPI, Reports gait dysfunction, Reports weakness Psychiatric: Denies anxiety, Denies depression Endocrine: Denies fatigue, Denies weight change Hematologic/Lymphatic: Reports as per HPI Past Medical History Past Medical History: Coronary Artery Disease (CAD), Cancer, COPD, Diabetes Mellitus, GERD/Reflux, Hyperlipidemia, Hypertension, Myocardial Infarction ([place]), Osteoarthritis (OA), Seizure Disorder, Sleep Apnea/CPAP/BIPAP Additional Past Medical History / Comment(s): LAST SEIZURE 2019; lumbar radiculopathy; neuropathy; no CPAP needed per recent sleep study, hx. lung cancer Last Myocardial Infarction Date:: 10/22/10 History of Any Multi-Drug Resistant Organisms: None Reported Past Surgical History: Back Surgery, Cholecystectomy, Heart Catheterization With Stent Additional Past Surgical History / Comment(s): LAMINECTOMY ,fusion,spinal stimulator LEFT SHOULDER sx, 07-31-15 revison thoracic laminectomy t10- t11/removal of neuro stimulator and wires removed, fused L1&2 to a cage fusion that was previously put in to L3,4,5. May 27/2018. 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 Smoking Status: Former smoker Past Alcohol Use History: None Reported Additional Past Alcohol Use History / Comment(s): STARTED SMOKING 1977, smokes 1 ppd, smoking cessation booklet given to pt. 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[facility] on the [facility] "marijuana no use currently-clear on last drug screen" - Past Family History Brother(s) Family Medical History: Deep Vein Thrombosis (DVT) Mother Family Medical History: Osteoarthritis (OA) Additional Family Medical History / Comment(s): psoriases, Parkinsons Father Family Medical History: Coronary Artery Disease (CAD) Additional Family Medical History / Comment(s): heart problems- quad bypass, Medications and Allergies Home Medications Medication Instructions Recorded Confirmed Type metFORMIN HCL 1,000 mg PO BID@0800,1700 07/24/15 02/12/20 History Atorvastatin [Lipitor] 20 mg PO HS@209903/28/19 02/12/20 History levETIRAcetam [Keppra] 750 mg PO DAILY@1400 03/28/19 02/12/20 History Acetaminophen [Tylenol] 650 mg PO Q6H PRN 05/30/19 02/12/20 History Insulin Glargine,Hum.rec.anlog 14 unit SQ HS@209905/30/19 02/12/20 History [Basaglar Kwikpen U-100] Linagliptin [Tradjenta] 5 mg PO DAILY@0900 05/30/19 02/12/20 History Midodrine HCl [ProAmatine] 10 mg PO TID@0900,1300,2100 PRN 05/30/19 02/12/20 History rOPINIRole HCL [Requip] 3 mg PO TID@0600,1400,2200 05/30/19 02/12/20 History Cyclobenzaprine [Flexeril] 5 mg PO TID@0600,1400,2200 07/21/19 02/12/20 History DULoxetine HCL [Cymbalta] 60 mg PO BID@0900,2100 07/21/19 02/12/20 History Divalproex Sodium [Depakote] 500 mg PO TID@0900,1300,2100 07/21/19 02/12/20 History Ergocalciferol [Vitamin D2 50,000 units PO ANDERSON@0900 07/21/19 02/12/20 History (DRISDOL)] Montelukast [Singulair] 10 mg PO HS@2100 11/01/19 05/25/20 History Sertraline [Zoloft] 50 mg PO DAILY@0900 07/21/19 02/12/20 History Famotidine [Pepcid] 20 mg PO BID@0900,209911/20/19 02/12/20 History Furosemide [Lasix] 20 mg PO DIRECTED 11/20/19 02/12/20 History Melatonin 10 mg PO HS@209911/20/19 02/12/20 History Morphine Sulfate [Morphine Sulfate 15 mg PO Q6H PRN 11/20/19 02/12/20 History ER] Insulin Aspart [NovoLOG] See Protocol SQ TID-W/MEALS PRN 11/29/19 02/12/20 History Aspirin 81 mg PO DAILY@0902/12/20 02/12/20 History Azelastine HCl 2 spray EA NOSTRIL BID PRN 02/12/20 02/12/20 History Bisacodyl 10 mg RECTAL DAILY PRN 02/12/20 02/12/20 History Cyclobenzaprine [Flexeril] 5 mg PO TID PRN 02/12/20 02/12/20 History Gabapentin [Neurontin] 400 mg PO HS@209902/12/20 02/12/20 History Loperamide [Imodium] 2 mg PO DIRECTED 02/12/20 02/12/20 History Metoprolol Tartrate [Lopressor] 12.5 mg PO BID@0900,2099 PRN 02/12/20 02/12/20 History Potassium Chloride [K-Tab ER] 20 meq PO DAILY@0900 02/12/20 02/12/20 History Pregabalin [Lyrica] 100 mg PO BID@0900,209902/12/20 02/12/20 History fentaNYL 75MCG/HR PATCH [Duragesic 75 mcg TRANSDERM Q72H 02/12/20 02/12/20 History 75MCG/HR] guaiFENesin [Mucinex] 600 mg PO BID 02/12/20 02/12/20 History levETIRAcetam [Keppra] 1,500 mg PO BID@0900,209902/12/20 02/12/20 History Allergies Allergy/AdvReac Type Severity Reaction Status Date / Time No Known Allergies Allergy Verified 02/12/20 09:46 Physical Exam Vitals: Vital Signs Temp Pulse Resp BP Pulse Ox 02/13/20 15:00 98.4 F 77 16 153/84 98 02/13/20 09:32 97.5 F L 80 18 144/83 100 02/13/20 01:25 97.9 F 73 19 127/79 92 L 02/12/20 20:23 98.4 F 76 16 128/83 97 Intake and Output 02/13/20 02/13/20 02/13/20 06:59 14:59 22:59 Other: # Voids 1 3 - Constitutional General appearance: no acute distress - EENT Eyes: EOMI, PERRLA ENT: hearing grossly normal, normal oropharynx - Neck Neck: no lymphadenopathy Thyroid: bilateral: normal size - Respiratory Respiratory: bilateral: CTA - Cardiovascular Rhythm: regular Heart sounds: normal: S1, S2 - Gastrointestinal General gastrointestinal: normal bowel sounds, soft - Integumentary Integumentary: normal - Neurologic Neurologic: CNII-XII intact - Musculoskeletal Uses walker. Decreased range of motion lower back, hips - Psychiatric Psychiatric: A&O x's 3, appropriate affect Results CBC & Chem 7: 02/13/20 06:55 02/13/20 06:55 Labs: Abnormal Lab Results - Last 24 Hours (Table) 02/12/20 02/12/20 02/13/20 Range/Units 16:59 20:41 06:55 RBC 3.64 L (4.30-5.90) m/uL Hgb 10.1 L D (13.0-17.5) gm/dL Hct 32.0 L (39.0-53.0) % Creatinine (0.66-1.25) mg/dL POC Glucose (mg/dL) 128 H 191 H (75-99) mg/dL Total Protein (6.3-8.2) g/dL Albumin (3.5-5.0) g/dL 02/13/20 02/13/20 02/13/20 Range/Units 06:55 07:13 11:25 RBC (4.30-5.90) m/uL Hgb (13.0-17.5) gm/dL Hct (39.0-53.0) % Creatinine 0.49 L (0.66-1.25) mg/dL POC Glucose (mg/dL) 105 H 127 H (75-99) mg/dL Total Protein 5.7 L (6.3-8.2) g/dL Albumin 3.3 L (3.5-5.0) g/dL Chest x-ray: report reviewed CT scan - abdomen: report reviewed CT scan - pelvis: report reviewed Assessment and Plan (1) Small bowel obstruction Narrative/Plan: The patient is presenting with this new issue as noted. He has never had small bowel obstruction previously. CT scan showed no evidence of malignancy. The patient's symptoms have improved rapidly with conservative management. At this time, according to surgery, it is felt that this may be related to adhesions from his prior abdominal surgeries. No active surgical intervention is felt to be required. The patient's prior colonoscopy was 5 years ago. He is also been evaluated by gastroenterology, with again no acute intervention being planned. Therefore this does not appear to be related in any way to his history of lung cancer. Defer to the admitting service, surgery and GI for further management Current Visit: Yes Status: Acute Code(s): K56.609 - UNSP INTESTNL OBST, UNSP TO PARTIAL VERSUS COMPLETE OBST SNOMED Code(s): 545183407 (2) Non-small cell cancer of right lung Narrative/Plan: Diagnostic and therapeutic circumstances as described. The patient has had no evidence of recurrence so far. He has had issues with right-sided chest wall pain, with nonspecific uptake on bone scan and PET scan with no evidence of any corresponding lesions, and biopsies negative. This is felt to be most likely due to postoperative pain. The significant response to the intercostal block supports the same. The patient is currently on surveillance with repeat PET scan ordered for 02/09/20. The patient canceled the same due to the ongoing coronavirus epidemic. This will be rescheduled through the office, along with his follow-up. Current Visit: Yes Status: Acute Code(s): C34.91 - MALIGNANT NEOPLASM OF UNSP PART OF RIGHT BRONCHUS OR LUNG SNOMED Code(s): 497443396
[2020-02-13 20:11] LABS: Glucose,Whole Blood 184 mg/dL (75-99)
[2020-02-13] MEDS: ATORVASTATIN 20 MG TAB PO SCH (20:35)
[2020-02-13] MEDS: MONTELUKAST 10 MG TAB PO SCH (20:35)
[2020-02-13] MEDS: INSULIN DETEMIR (LEVEMIR) 100 UNIT/ML SYR SQ SCH (20:39)
[2020-02-14] MEDS: HYDROmorphone 1 MG/ML 1 ML SYRINGE IVP PRN ×2 (01:33→05:42)
[2020-02-14] MEDS: LORazepam 2 MG/ML INJ IV PRN (02:48)
[2020-02-14 03:28] VITALS: RESP 18
[2020-02-14] MEDS: CYCLOBENZAPRINE 5 MG TAB PO SCH (05:46)
[2020-02-14 06:59] LABS: Glucose,Whole Blood 160 mg/dL (75-99)
[2020-02-14] MEDS: PREGABALIN 100 MG CAP PO SCH (07:54)
[2020-02-14] MEDS: FUROSEMIDE 20 MG TAB PO SCH (07:54)
[2020-02-14] MEDS: MIDODRINE 5 MG TAB PO SCH (07:54)
[2020-02-14] MEDS: guaiFENesin 600 MG TABLET.ER PO SCH (07:54)
[2020-02-14] MEDS: FAMOTIDINE 20 MG TAB PO SCH (07:55)
[2020-02-14] MEDS: ENOXAPARIN 40 MG/0.4 ML SYRINGE SQ SCH (07:55)
[2020-02-14] MEDS: DIVALPROEX 500 MG TABLET.DR PO SCH (07:55)
[2020-02-14] MEDS: POTASSIUM CHLORIDE ER 20 MEQ TAB.ER PO SCH (07:55)
[2020-02-14] MEDS: SERTRALINE 50 MG TAB PO SCH (07:55)
[2020-02-14] MEDS: DULoxetine HCL 60 MG CAPSULE.DR PO SCH (07:55)
[2020-02-14] MEDS: INSULIN ASPART (NovoLOG) 100 UNIT/ML VIAL SQ SCH (07:55)
[2020-02-14] MEDS: PANTOPRAZOLE 40 MG/10 ML VIAL IVP SCH (07:56)
[2020-02-14 08:03] VITALS: BP 171/93; PULSE 64; TEMP 98.3
--- NOTE | 2020-02-14 08:30 | P.DS ---
Providers Date of admission: 02/12/20 01:08 Expected date of discharge: 02/14/20 Attending physician: Radha Ortiz Consults: 02/12/20 01:08 Consult Physician Routine Consulting Provider: Jayden Wheeler Consult Reason/Comments: sbo Do you want consulting provider notified?: Yes 02/12/20 03:18 Consult Physician Routine Consulting Provider: Trisha Watt Consult Reason/Comments: pancreatitis Do you want consulting provider notified?: Yes 02/12/20 08:10 Consult Physician Routine Consulting Provider: Edmar Orlando Consult Reason/Comments: Lung Cancer Do you want consulting provider notified?: Yes Primary care physician: Radha Ortiz [facility] Course: 54-year-old male one of Dr. Ortiz's patient who has been [facility] [place] since May 2019 has been managed for multiple medical problem including debility for chronic lower back pain and advance COPD right-sided lung cancer was treated and patient claimed that his in full remission. Also patient had left-sided hemiparesis from old stroke and multiple other medical problem including heart disease chronic pain syndrome on multi-medication had nerve stimulant in the spine as well and seen pain management at [facility]. Patient also had history of seizure has been on Keppra with no seizure activity lately. He is debilitated not been able to ambulate and walk and has been trying to wean himself off pain meds gradually not successful so far. Patient presented to demurs department at [facility] with 2 days history of increase abdominal pain with no bowel movement with worsening nausea vomiting with fever and chills despite a management and [facility] did not improve ended up being transfer to [facility] emergency department where was seen and evaluated found to have an elevated lipase and amylase CAT scan of the abdomen performed showed small bowel obstruction. Patient did not have any NG tube started on IV hydration was admitted to the hospital nothing by mouth to be seen general surgery and gastroenterology. Patient had his gallbladder surgery long time ago and was previously an alcoholic has not had any alcohol consumption in a while. Patient claimed that his strength to wean himself gradually off pain meds to be able to go home on her wrap to independent living when possible. 02/12: Patient is doing much better he had bowel movement, decreased abdominal pain, his lipase and amylase are down to normal. Another x-ray be done today and if patient is doing well hopefully can be discharged back to [facility] tomorrow. 02/13: Patient is anxious to go back to [facility] today. He relates that he has a working with social workers at the [facility] to be discharged from [facility] in the near future. Blood sugars are running 127-184. Patient was seen yesterday by Dr. Salcedo. Patient had a PET scan ordered for February 08 that was canceled and will be rescheduled by his office for follow-up to his non-small cell lung cancer. Patient will be discharged back to [facility] today in stable condition. Discharge diagnoses: 1 acute abdominal pain: Combination of small bowel obstruction along with acute pancreatitis 2 small bowel obstruction: With stool impaction 3 acute pancreatitis 4 history of lung cancer: Post surgery and resection according to patient did not have any chemo or radiation afterward and has been in remission. 5 chronic pain syndrome 6 COPD, stable 7 type 2 diabetes 8 atherosclerotic heart disease 9 history of seizure 10 recurrent depression 11 restless leg syndrome 12 hypotension 13 hyperlipidemia 14 chronic neuropathy 15 hypercalcemia Discharge planning: [facility] Impression and plan of care have been directed as dictated by the signing physician. Eleonora Almeida nurse practitioner acting as scribe for signing physician. Patient Condition at Discharge: Good Plan - Discharge Summary Discharge Rx Participant: No New Discharge Prescriptions: Continue metFORMIN HCL 1,000 mg PO BID@0800,1700 Atorvastatin [Lipitor] 20 mg PO HS@2100 levETIRAcetam [Keppra] 750 mg PO DAILY@1400 Acetaminophen [Tylenol] 650 mg PO Q6H PRN PRN Reason: Pain Or Fever > 100.5 Insulin Glargine,Hum.rec.anlog [Basaglar Kwikpen U-100] 14 unit SQ HS@2100 Linagliptin [Tradjenta] 5 mg PO DAILY@0900 Midodrine HCl [ProAmatine] 10 mg PO TID@0900,1300,2100 PRN PRN Reason: HOLD IF SBP > 170 rOPINIRole HCL [Requip] 3 mg PO TID@0600,1400,2200 Cyclobenzaprine [Flexeril] 5 mg PO TID@0600,1400,2200 Divalproex Sodium [Depakote] 500 mg PO TID@0900,1300,2100 DULoxetine HCL [Cymbalta] 60 mg PO BID@0900,2100 Ergocalciferol [Vitamin D2 (DRISDOL)] 50,000 units PO ANDERSON@0900 Montelukast [Singulair] 10 mg PO HS@2099 Sertraline [Zoloft] 50 mg PO DAILY@0900 Furosemide [Lasix] 20 mg PO DIRECTED Famotidine [Pepcid] 20 mg PO BID@899,2100 Melatonin 10 mg PO HS@2099 Insulin Aspart [NovoLOG] See Protocol SQ TID-W/MEALS PRN PRN Reason: scale Aspirin 81 mg PO DAILY@0900 Azelastine HCl 2 spray EA NOSTRIL BID PRN PRN Reason: Allergy Symptoms Bisacodyl 10 mg RECTAL DAILY PRN PRN Reason: Constipation Gabapentin [Neurontin] 400 mg PO HS@2099 guaiFENesin [Mucinex] 600 mg PO BID levETIRAcetam [Keppra] 1,500 mg PO BID@899,2099 Loperamide [Imodium] 2 mg PO DIRECTED Metoprolol Tartrate [Lopressor] 12.5 mg PO BID@00,2099 PRN PRN Reason: HOLD IF SBP IS LESS 110 Potassium Chloride [K-Tab ER] 20 meq PO DAILY@0900 fentaNYL 75MCG/HR PATCH [Duragesic 75MCG/HR] 75 mcg TRANSDERM Q72H #1 patch Pregabalin [Lyrica] 100 mg PO BID@899,2099 #6 cap Morphine Sulfate [Morphine Sulfate ER] 15 mg PO Q6H PRN #12 tab PRN Reason: Pain Discontinued Cyclobenzaprine [Flexeril] 5 mg PO TID PRN PRN Reason: PRIOR TO ACTIVITY Discharge Medication List metFORMIN HCL 1,000 mg PO BID@0800,1700 07/24/15 [History] Atorvastatin [Lipitor] 20 mg PO HS@209903/28/19 [History] levETIRAcetam [Keppra] 750 mg PO DAILY@1400 03/28/19 [History] Acetaminophen [Tylenol] 650 mg PO Q6H PRN 05/30/19 [History] Insulin Glargine,Hum.rec.anlog [Basaglar Kwikpen U-100] 14 unit SQ HS@209905/30/19 [History] Linagliptin [Tradjenta] 5 mg PO DAILY@0900 19 [History] Midodrine HCl [ProAmatine] 10 mg PO TID@0900,1300,2099 PRN 05/30/19 [History] rOPINIRole HCL [Requip] 3 mg PO TID@0600,1400,2200 05/30/19 [History] Cyclobenzaprine [Flexeril] 5 mg PO TID@0600,1400,22007/21/19 [History] DULoxetine HCL [Cymbalta] 60 mg PO BID@0900,209907/21/19 [History] Divalproex Sodium [Depakote] 500 mg PO TID@0900,1300,209907/21/19 [History] Ergocalciferol [Vitamin D2 (DRISDOL)] 50,000 units PO ANDERSON@89907/21/19 [History] Montelukast [Singulair] 10 mg PO HS@209907/21/19 [History] Sertraline [Zoloft] 50 mg PO DAILY@89907/21/19 [History] Famotidine [Pepcid] 20 mg PO BID@899,209911/20/19 [History] Furosemide [Lasix] 20 mg PO DIRECTED 11/20/19 [History] Melatonin 10 mg PO HS@209911/20/19 [History] Insulin Aspart [NovoLOG] See Protocol SQ TID-W/MEALS PRN 11/29/19 [History] Aspirin 81 mg PO DAILY@0902/12/20 [History] Azelastine HCl 2 spray EA NOSTRIL BID PRN 02/12/20 [History] Bisacodyl 10 mg RECTAL DAILY PRN 02/12/20 [History] Gabapentin [Neurontin] 400 mg PO HS@209902/12/20 [History] Loperamide [Imodium] 2 mg PO DIRECTED 02/12/20 [History] Metoprolol Tartrate [Lopressor] 12.5 mg PO BID@899,2099 PRN 02/12/20 [History] Potassium Chloride [K-Tab ER] 20 meq PO DAILY@0900 02/12/20 [History] guaiFENesin [Mucinex] 600 mg PO BID 02/12/20 [History] levETIRAcetam [Keppra] 1,500 mg PO BID@0900,209902/12/20 [History] Morphine Sulfate [Morphine Sulfate ER] 15 mg PO Q6H PRN #12 tab 02/14/20 [Rx] Pregabalin [Lyrica] 100 mg PO BID@899,2099 #6 cap 02/14/20 [Rx] fentaNYL 75MCG/HR PATCH [Duragesic 75MCG/HR] 75 mcg TRANSDERM Q72H #1 patch 02/14/20 [Rx] Follow up Appointment(s)/Referral(s): Radha Ortiz MD [Primary Care Provider] - 1 Week (at [facility]) Discharge Disposition: TRANSFER TO SNF/[facility]
--- NOTE | 2020-02-14 10:34 | P.PN ---
Subjective Progress Note Date: 02/14/20 CHIEF COMPLAINT: Pancreatitis, small bowel obstruction HISTORY OF PRESENT ILLNESS: Patient examined at the bedside this morning. Patient denies abdominal pain. Patient is tolerating diet. Denies nausea or vomiting. Passing flatus and having bowel movements. PHYSICAL EXAM: VITAL SIGNS: Reviewed. GENERAL: Well-developed in no acute distress. HEENT: No sclera icterus. Extraocular movements grossly intact. Moist buccal mucosa. Head is atraumatic, normocephalic. ABDOMEN: Soft. Nondistended. Nontender. NEUROLOGIC: Alert and oriented. Cranial nerves II through XII grossly intact. ASSESSMENT: 1. Pancreatitis 2. Small bowel obstruction PLAN: Patient states he is being discharged home today. Agreeable for discharge from a surgical standpoint. Nurse practitioner note has been reviewed by physician. Signing provider agrees with the documented findings, assessment, and plan of care. Objective - Vital Signs Vital signs: Vital Signs Temp 98.3 F 02/14/20 07:00 Pulse 64 02/14/20 07:00 Resp 18 02/14/20 07:00 BP 171/93 02/14/20 07:00 Pulse Ox 98 02/14/20 07:00 Intake & Output 02/13/20 02/14/20 02/14/20 18:59 06:59 18:59 Other: Voiding Method Urinal # Voids 3 2 - Labs CBC & Chem 7: 02/13/20 06:55 02/13/20 06:55 Labs: Abnormal Lab Results - Last 24 Hours (Table) 02/13/20 02/13/20 02/13/20 Range/Units 11:25 16:29 20:09 POC Glucose (mg/dL) 127 H 155 H 184 H (75-99) mg/dL 02/14/20 Range/Units 06:57 POC Glucose (mg/dL) 160 H (75-99) mg/dL
[2020-02-14 11:38] LABS: Glucose,Whole Blood 129 mg/dL (75-99)
--- NOTE | 2020-02-15 02:48 | PN ---
PROGRESS NOTE DATE OF DICTATION: 02/14/2020 The patient is a 54-year-old pleasant white male admitted to hospital with acute pancreatitis and partial small bowel obstruction. He is doing much better. Abdominal pain has resolved. On a regular diet, tolerating well. Being discharged home today. PHYSICAL EXAMINATION: On physical examination, appears comfortable, no apparent distress. Vital signs are stable. Blood pressure 127/86, pulse rate 94, temperature 98.7. HEENT EXAMINATION: Unremarkable. Conjunctivae pink. Sclerae anicteric. Oral cavity, no lesions. NECK: No JVD or lymph node enlargement. CHEST: Clear to auscultation. HEART: Regular rate and rhythm. ABDOMEN: Soft, nontender, nondistended. Bowel sounds are positive. EXTREMITIES: No pedal edema. SKIN: No rashes. NEUROLOGIC: Alert and oriented x3. No focal deficits. LABS: Labs from today not available. IMPRESSION: 1. Acute pancreatitis, resolved. Etiology remains unclear. No history of alcohol use. Ultrasound of the gallbladder showed no evidence of gallstones. He had mild pancreatitis which improved within 24 hours. Tolerating low-fat diet, doing well. 2. Partial small-bowel obstruction, resolved. RECOMMENDATIONS: 1. Continue with low-fat diet for one week. 2. He can be discharged home today. 3. Advised to follow up in the office in 2 to 3 weeks. Thank you for this consultation. NIKUNJ / GERSON: [phone] /
== END 2020-02-14 12:54 | DRG 388 ==
LOC: EC 21:27 → 4SSUR 02-12 01:08
PROVIDERS: ADMIT Family Medicine; ATTEND Family Medicine
DX: K56.600 Partial intestinal obstruction, unspecified as to cause (principal); K85.90 Acute pancreatitis without necrosis or infection, unspecified; F33.9 Major depressive disorder, recurrent, unspecified; C34.91 Malignant neoplasm of unspecified part of right bronchus or lung; I69.359 Hemiplegia and hemiparesis following cerebral infarction affecting unspecified side; E11.40 Type 2 diabetes mellitus with diabetic neuropathy, unspecified; E78.5 Hyperlipidemia, unspecified; E83.52 Hypercalcemia; E86.0 Dehydration; G25.81 Restless legs syndrome; G40.909 Epilepsy, unspecified, not intractable, without status epilepticus; G89.4 Chronic pain syndrome; I10 Essential (primary) hypertension; I25.10 Atherosclerotic heart disease of native coronary artery without angina pectoris; I95.9 Hypotension, unspecified; G47.33 Obstructive sleep apnea (adult) (pediatric); K21.9 Gastro-esophageal reflux disease without esophagitis; K56.41 Fecal impaction; M19.90 Unspecified osteoarthritis, unspecified site; Z11.59 Encounter for screening for other viral diseases; J44.9 Chronic obstructive pulmonary disease, unspecified; Z79.4 Long term (current) use of insulin; I25.2 Old myocardial infarction; Z79.899 Other long term (current) drug therapy; Z79.82 Long term (current) use of aspirin; Z82.49 Family history of ischemic heart disease and other diseases of the circulatory system; Z82.0 Family history of epilepsy and other diseases of the nervous system; Z85.118 Personal history of other malignant neoplasm of bronchus and lung; Z90.49 Acquired absence of other specified parts of digestive tract; Z87.891 Personal history of nicotine dependence; Z99.89 Dependence on other enabling machines and devices; Z98.890 Other specified postprocedural states; Z90.89 Acquired absence of other organs
CPT/HCPCS: 36415; 71046; 74177; 80053; 81003; 82150; 83690; 85025; 85610; 85730; 87635; 96361; 96374; 96375; 96376; 99285

== ENCOUNTER 2020-05-03 12:06 | Inpatient (IN) | payer MEDICARE, OTHER ==
[2020-05-03] MEDS ORDERED: NITROGLYCERIN OINT 1 INCH/GM PACKET TOPICAL STA (12:57)
[2020-05-03] MEDS ORDERED: ASPIRIN 81 MG PO STA (12:57)
--- NOTE | 2020-05-03 13:02 | ED ---
General Adult HPI - General Chief complaint: Chest Pain Stated complaint: Chest Pain Time Seen by Provider: 05/03/20 12:30 Source: patient, EMS, RN notes reviewed Mode of arrival: EMS Limitations: physical limitation - History of Present Illness Initial comments: Patient is a pleasant 54-year-old male presenting to the emergency department complaining of chest discomfort. Onset of symptoms was prior to arrival. Patient states discomfort was tightness with associated dyspnea and sweating and nausea. Symptoms are mild now and discomfort is just minimal. Symptoms are somewhat similar to previous heart attack. No radiation. No leg pain or leg sw elling. Patient did take nitroglycerin however is unclear if that really helped him. - Related Data Home Medications Medication Instructions Recorded Confirmed metFORMIN HCL 1,000 mg PO BID@0800,1700 07/24/15 02/12/20 Atorvastatin [Lipitor] 20 mg PO HS@209903/28/19 02/12/20 levETIRAcetam [Keppra] 750 mg PO DAILY@1400 03/28/19 02/12/20 Acetaminophen [Tylenol] 650 mg PO Q6H PRN 05/30/19 02/12/20 Insulin Glargine,Hum.rec.anlog 14 unit SQ HS@209905/30/19 02/12/20 [Basaglar Kwikpen U-100] Linagliptin [Tradjenta] 5 mg PO DAILY@0900 05/30/19 02/12/20 Midodrine HCl [ProAmatine] 10 mg PO TID@0900,1300,2100 PRN 05/30/19 02/12/20 rOPINIRole HCL [Requip] 3 mg PO TID@0600,1400,2200 05/30/19 02/12/20 Cyclobenzaprine [Flexeril] 5 mg PO TID@0600,1400,2200 07/21/19 02/12/20 DULoxetine HCL [Cymbalta] 60 mg PO BID@0900,209907/21/19 02/12/20 Divalproex Sodium [Depakote] 500 mg PO TID@0900,1300,2100 07/21/19 02/12/20 Ergocalciferol [Vitamin D2 50,000 units PO ANDERSON@0900 07/21/19 02/12/20 (DRISDOL)] Montelukast [Singulair] 10 mg PO HS@209907/21/19 02/12/20 Sertraline [Zoloft] 50 mg PO DAILY@89907/21/19 02/12/20 Famotidine [Pepcid] 20 mg PO BID@0900,209911/20/19 02/12/20 Furosemide [Lasix] 20 mg PO DIRECTED 11/20/19 02/12/20 Melatonin 10 mg PO HS@209911/20/19 02/12/20 Insulin Aspart [NovoLOG] See Protocol SQ TID-W/MEALS PRN 11/29/19 02/12/20 Aspirin 81 mg PO DAILY@89902/12/20 02/12/20 Azelastine HCl 2 spray EA NOSTRIL BID PRN 02/12/20 02/12/20 Gabapentin [Neurontin] 400 mg PO HS@209902/12/20 02/12/20 Loperamide [Imodium] 2 mg PO DIRECTED 02/12/20 02/12/20 Metoprolol Tartrate [Lopressor] 12.5 mg PO BID@0900,2099 PRN 02/12/20 02/12/20 Potassium Chloride [K-Tab ER] 20 meq PO DAILY@89902/12/20 02/12/20 bisacodyL [Bisacodyl] 10 mg RECTAL DAILY PRN 02/12/20 02/12/20 guaiFENesin [Mucinex] 600 mg PO BID 02/12/20 02/12/20 levETIRAcetam [Keppra] 1,500 mg PO BID@0900,209902/12/20 02/12/20 Previous Rx's Medication Instructions Recorded Morphine Sulfate [Morphine Sulfate 15 mg PO Q6H PRN #12 tab 02/14/20 ER] Pregabalin [Lyrica] 100 mg PO BID@899,2099 #6 cap 02/14/20 fentaNYL 75MCG/HR PATCH [Duragesic 75 mcg TRANSDERM Q72H #1 patch 02/14/20 75MCG/HR] Allergies Allergy/AdvReac Type Severity Reaction Status Date / Time baclofen Allergy Unknown Verified 05/03/20 12:13 cyclobenzaprine Allergy Unknown Verified 05/03/20 12:13 [From Flexeril] Review of Systems ROS Statement: Those systems with pertinent positive or pertinent negative responses have been documented in the HPI. ROS Other: All systems not noted in ROS Statement are negative. Constitutional: Denies: fever Eyes: Denies: eye pain ENT: Denies: ear pain Respiratory: Reports: as per HPI. Denies: cough Cardiovascular: Reports: as per HPI, chest pain Endocrine: Denies: fatigue Gastrointestinal: Denies: abdominal pain Genitourinary: Denies: dysuria Musculoskeletal: Denies: back pain Skin: Denies: rash Neurological: Denies: weakness Past Medical History Past Medical History: Coronary Artery Disease (CAD), Cancer, COPD, Diabetes Mellitus, GERD/Reflux, Hyperlipidemia, Hypertension, Myocardial Infarction ([place]), Osteoarthritis (OA), Seizure Disorder, Sleep Apnea/CPAP/BIPAP Additional Past Medical History / Comment(s): LAST SEIZURE 2018; lumbar radiculopathy; neuropathy; no CPAP needed per recent sleep study, hx. lung c ancer Last Myocardial Infarction Date:: 10/22/10 History of Any Multi-Drug Resistant Organisms: None Reported Past Surgical History: Back Surgery, Cholecystectomy, Heart Catheterization With Stent Additional Past Surgical History / Comment(s): LAMINECTOMY ,fusion,spinal stimulator LEFT SHOULDER sx, 07-31-15 revison thoracic laminectomy t10- t11/removal of neuro stimulator and wires removed, fused L1&2 to a cage fusion that was previously put in to L3,4,5. May 27/2018. lobectomy of right middle l yunior Past Anesthesia/Blood Transfusion Reactions: No Reported Reaction Date of Last Stent Placement:: 10/22/10 Past Psychological History: Depression Smoking Status: Former smoker Past Alcohol Use History: None Reported Past Drug Use History: None Reported - Past Family History Brother(s) Family Medical History: Deep Vein Thrombosis (DVT) Mother Family Medical History: Osteoarthritis (OA) Additional Family Medical History / Comment(s): psoriases, Parkinsons Father Family Medical History: Coronary Artery Disease (CAD) Additional Family Medical History / Comment(s): heart problems- quad bypass, General Exam Limitations: physical limitation General appearance: alert, in no apparent distress Head exam: Present: normocephalic Eye exam: Present: normal appearance Neck exam: Present: normal inspection Respiratory exam: Present: normal lung sounds bilaterally. Absent: chest wall tenderness Cardiovascular Exam: Present: regular rate, normal rhythm Expanded Peripheral pulses: 2+: Radial (R), Radial (L), Posterior Tibialis (R), Posterior Tibialis (L) GI/Abdominal exam: Present: soft. Absent: tenderness Extremities exam: Present: normal inspection, other (Patient does have compression stockings). Absent: pedal edema, calf tenderness Neurological exam: Present: alert, other (Left-sided weakness) Psychiatric exam: Present: normal affect, normal mood Skin exam: Present: normal color. Absent: rash Course Vital Signs 05/03/20 05/03/20 05/03/20 12:14 13:14 14:09 Temperature 98.6 F Pulse Rate 84 79 82 Respiratory 18 18 18 Rate Blood Pressure 115/81 99/57 98/77 O2 Sat by Pulse 99 96 100 Oximetry - Reevaluation(s) Reevaluation #1: 05/03/20 13:58 Patient requesting pain medicine for his chronic back pain EKG Findings - EKG Comments: EKG Findings:: Normal sinus rhythm 84. ID 166. QRS 90. QT 368. QTC 434. Left axis. Normal QRS. No acute ST change. Medical Decision Making - Medical Decision Making Patient reevaluated and updated. Case discussed with Dr. Handy, who will admit for Dr. Ortiz. - Lab Data Result diagrams: 05/03/20 13:06 05/03/20 13:06 Lab Results 05/03/20 05/03/20 05/03/20 Range/Units 13:06 13:06 13:06 WBC 8.1 (3.8-10.6) k/uL RBC 4.53 (4.30-5.90) m/uL Hgb 12.5 L (13.0-17.5) gm/dL Hct 39.5 (39.0-53.0) % MCV 87.3 (80.0-100.0) fL MCH 27.7 (25.0-35.0) pg MCHC 31.7 (31.0-37.0) g/dL RDW 14.2 (11.5-15.5) % Plt Count 215 (150-450) k/uL Neutrophils % 77 % Lymphocytes % 16 % Monocytes % 5 % Eosinophils % 1 % Basophils % 0 % Neutrophils # 6.2 (1.3-7.7) k/uL Lymphocytes # 1.3 (1.0-4.8) k/uL Monocytes # 0.4 (0-1.0) k/uL Eosinophils # 0.1 (0-0.7) k/uL Basophils # 0.0 (0-0.2) k/uL PT 9.4 (9.0-12.0) sec INR 0.9 (<1.2) APTT 22.3 (22.0-30.0) sec Sodium 136 L (137-145) mmol/L Potassium 5.2 H (3.5-5.1) mmol/L Chloride 97 L (98-107) mmol/L Carbon Dioxide 30 (22-30) mmol/L Anion Gap 9 mmol/L BUN 13 (9-20) mg/dL Creatinine 0.51 L (0.66-1.25) mg/dL Est GFR (CKD-EPI)AfAm >90 (>60 ml/min/1.73 sqM) Est GFR (CKD-EPI)NonAf >90 (>60 ml/min/1.73 sqM) Glucose 274 H (74-99) mg/dL Calcium 9.5 (8.4-10.2) mg/dL Magnesium 1.9 (1.6-2.3) mg/dL Total Bilirubin 0.5 (0.2-1.3) mg/dL AST 28 (17-59) U/L ALT 33 (4-49) U/L Alkaline Phosphatase 83 (38-126) U/L Troponin I (0.000-0.034) ng/mL Total Protein 6.6 (6.3-8.2) g/dL Albumin 4.2 (3.5-5.0) g/dL 05/03/20 Range/Units 13:06 WBC (3.8-10.6) k/uL RBC (4.30-5.90) m/uL Hgb (13.0-17.5) gm/dL Hct (39.0-53.0) % MCV (80.0-100.0) fL MCH (25.0-35.0) pg MCHC (31.0-37.0) g/dL RDW (11.5-15.5) % Plt Count (150-450) k/uL Neutrophils % % Lymphocytes % % Monocytes % % Eosinophils % % Basophils % % Neutrophils # (1.3-7.7) k/uL Lymphocytes # (1.0-4.8) k/uL Monocytes # (0-1.0) k/uL Eosinophils # (0-0.7) k/uL Basophils # (0-0.2) k/uL PT (9.0-12.0) sec INR (<1.2) APTT (22.0-30.0) sec Sodium (137-145) mmol/L Potassium (3.5-5.1) mmol/L Chloride (98-107) mmol/L Carbon Dioxide (22-30) mmol/L Anion Gap mmol/L BUN (9-20) mg/dL Creatinine (0.66-1.25) mg/dL Est GFR (CKD-EPI)AfAm (>60 ml/min/1.73 sqM) Est GFR (CKD-EPI)NonAf (>60 ml/min/1.73 sqM) Glucose (74-99) mg/dL Calcium (8.4-10.2) mg/dL Magnesium (1.6-2.3) mg/dL Total Bilirubin (0.2-1.3) mg/dL AST (17-59) U/L ALT (4-49) U/L Alkaline Phosphatase (38-126) U/L Troponin I <0.012 (0.000-0.034) ng/mL Total Protein (6.3-8.2) g/dL Albumin (3.5-5.0) g/dL - Radiology Data Radiology results: image reviewed (Chest x-ray shows correlate for bronchitis, pneumonitis or early venous congestion.) Disposition Clinical Impression: Chest pain Disposition: ADMITTED IP TO THIS HOSP Is patient prescribed a controlled substance at d/c from ED?: No Referrals: Radha Ortiz MD [Primary Care Provider] - 1-2 days Decision Time: 14:19
[2020-05-03 13:22] LABS: Basophils % (A) 0 %; Eosinophils # (A) 0.1 k/uL (0-0.7); Eosinophils % (A) 1 %; HCT 39.5 % (39.0-53.0); HGB 12.5 gm/dL (13.0-17.5); Lymphocytes # (A) 1.3 k/uL (1.0-4.8); Lymphocytes % (A) 16 %; MCH 27.7 pg (25.0-35.0); MCHC 31.7 g/dL (31.0-37.0); MCV 87.3 fL (80.0-100.0); Mean Platelet Volume 7.6; Monocytes # (A) 0.4 k/uL (0-1.0); Monocytes % (A) 5 %; Neutrophils # (A) 6.2 k/uL (1.3-7.7); Neutrophils % (A) 77 %; Platelet Count 215 k/uL (150-450); RBC 4.53 m/uL (4.30-5.90); RDW 14.2 % (11.5-15.5); WBC 8.1 k/uL (3.8-10.6)
--- NOTE | 2020-05-03 13:32 | XR ---
EXAMINATION TYPE: XR chest 2V DATE OF EXAM: 05/03/2020 COMPARISON: 02/11/2020 TECHNIQUE: PA and lateral views submitted. HISTORY: Chest pain FINDINGS: Limited inspiration. There is a coarsened interstitium. Arthropathy of the shoulders. No pneumothorax . Heart size normal. IMPRESSION: 1. Correlate for bronchitis, interstitial pneumonitis or early venous congestion.
[2020-05-03 13:34] LABS: INR 0.9 (<1.2); Partial Thromboplastin Time 22.3 sec (22.0-30.0); Prothrombin Time 9.4 sec (9.0-12.0)
[2020-05-03 13:37] LABS: ALT 33 U/L (4-49); AST 28 U/L (17-59); African American GFR (CKD) >90 (>60 ml/min/1.73 sqM); Albumin 4.2 g/dL (3.5-5.0); Alkaline Phosphatase 83 U/L (38-126); Anion Gap 9 mmol/L; Blood Urea Nitrogen 13 mg/dL (9-20); Calcium 9.5 mg/dL (8.4-10.2); Carbon Dioxide 30 mmol/L (22-30); Chloride 97 mmol/L (98-107); Glucose 274 mg/dL (74-99); Magnesium 1.9 mg/dL (1.6-2.3); Non-African American GFR(CKD) >90 (>60 ml/min/1.73 sqM); Potassium 5.2 mmol/L (3.5-5.1); Sodium 136 mmol/L (137-145); Total Bilirubin 0.5 mg/dL (0.2-1.3); Total Protein 6.6 g/dL (6.3-8.2)
[2020-05-03] MEDS ORDERED: HYDROcodone/APAP 5-325MG 1 EACH TAB PO STA (13:52)
[2020-05-03] MEDS ORDERED: NITROGLYCERIN SL TABS 0.4 MG TAB SUBLINGUAL PRN (14:20)
[2020-05-03] MEDS ORDERED: MAGNESIUM HYDROXIDE 2,400 MG/10 ML CUP PO PRN (16:29)
[2020-05-03] MEDS ORDERED: CLOTRIMAZOLE/BETAMETH 1-0.05% CREAM 45 GM TUBE TOPICAL PRN (16:29)
[2020-05-03] MEDS ORDERED: MIDODRINE 5 MG TAB PO PRN (16:29)
[2020-05-03] MEDS ORDERED: bisacodyL 10 MG SUPP RECTAL PRN (16:29)
[2020-05-03] MEDS ORDERED: AZELASTINE 137MCG/SPRAY EA NOSTRIL PRN (16:29)
[2020-05-03] MEDS ORDERED: LOPERAMIDE 2 MG CAP PO PRN (16:30)
[2020-05-03] MEDS: MORPHINE ORAL SOLN 10 MG/5 ML CUP PO PRN ×2 (16:47→22:45)
[2020-05-03 17:10] LABS: Glucose,Whole Blood 368 mg/dL (75-99)
[2020-05-03] MEDS: INSULIN ASPART (NovoLOG) 100 UNIT/ML VIAL SQ SCH ×3 (18:05→22:00)
[2020-05-03] MEDS: metFORMIN 500 MG TAB PO SCH (18:05)
[2020-05-03] MEDS: NITROGLYCERIN OINT 1 INCH/GM PACKET TOPICAL SCH (18:40)
[2020-05-03] MEDS: ACETAMINOPHEN TAB 325 MG TAB PO PRN (19:04)
[2020-05-03] MEDS ORDERED: METOPROLOL TARTRATE 12.5 MG TAB PO PRN (21:00)
[2020-05-03 21:54] LABS: Glucose,Whole Blood 210 mg/dL (75-99)
[2020-05-03] MEDS: PREGABALIN 100 MG CAP PO SCH (21:58)
[2020-05-03] MEDS: MONTELUKAST 10 MG TAB PO SCH (21:58)
[2020-05-03] MEDS: DULoxetine HCL 60 MG CAPSULE.DR PO SCH (21:59)
[2020-05-03] MEDS: MELATONIN 5 MG TABLET PO SCH (21:59)
[2020-05-03] MEDS: guaiFENesin 600 MG TABLET.ER PO SCH (21:59)
[2020-05-03] MEDS: traZODone HCL 50 MG TAB PO SCH (21:59)
[2020-05-03] MEDS: DIVALPROEX 500 MG TABLET.DR PO SCH (21:59)
[2020-05-03] MEDS: FAMOTIDINE 20 MG TAB PO SCH (21:59)
[2020-05-03] MEDS: INSULIN DETEMIR (LEVEMIR) 100 UNIT/ML SYR SQ SCH (22:14)
[2020-05-03] MEDS: methocarbamoL 750 MG TAB PO SCH (22:14)
--- NOTE | 2020-05-03 22:39 | P.HPIM ---
History of Present Illness H&P Date: 05/03/20 Chief Complaint: Chest pain, previous history of CVA with left-sided weakness, diabetes, [employer] MA[employer]GER 54-year-old morbidly obese male from [facility] on the ransom who had previous history of CVA 3 left him with left-sided weakness significant decreased mobility, history of hypertension, diabetes, hyperlipidemia who is also known to have history of lung cancer post right middle lobe resection. Patient developed to have midsternal chest pain lasted for over an hour and half with severe associated with palpitation mild nausea and see if and shortness of breath developed to have mild numbness in the left arm area. Patient ended up being sent to demurs department at [facility] where was seen his first troponin was negative blood sugar was quite but elevated initially his EKG showed normal sinus rhythm with might new major abnormality. Chest x-ray shows mild early venous congestion with interstitial pneumonitis. Patient was admitted to the hospital for recurrent angina with known history of CAD post angioplasty and stent placement. Review of Systems CONSTITUTIONAL: Well-developed no acute respiratory distress. EYES: No icterus sclerae, no conjunctivitis. EARS, NOSE, MOUTH, THROAT, and FACE: No sore throat, lymphadenopathy, carotid b ruits or deformity. RESPIRATORY: Positive shortness of breath no cough wheezes. CARDIOVASCULAR: Positive PND with her new palpitation and angina. GASTROINTESTINAL: No Abd pain, Nausea or vomiting, no Diarrhea or constipation, No GI Bleed, no distention or masses. GENITOURINARY: Negative for Hematuria or UTI, no kidney stones. Mild urinary retention. INTEGUMENT/BREAST: Negative for any muscular injury with mild osteoarthritis.. HEMATOLOGIC/LYMPHATIC: Negative for bleed or purpura. MUSCULOSKELTAL: Negative for Myalgia or arthralgia. NEURLOGICAL: Significant weakness the left side compared to the right side mild slurred speech severe abnormal balance and gait and decreased mobility. BEHAVIORAL/PSYCH: Negative. ENDOCRINE: Negative. Social history: He quit smoking over 2 years ago small pack a day for over 20 years he is to be heavy alcoholic has not drink since 2009 a single not does not have any children. Family history: Father very a 78 with history of CVA, mother living or 77 well and healthy. Patient has 4 brothers and one sister are all living and well no children. Past Medical History Past Medical History: Coronary Artery Disease (CAD), Cancer, COPD, Diabetes Mellitus, GERD/Reflux, Hyperlipidemia, Hypertension, Myocardial Infarction ([place]), Osteoarthritis ([place]), Seizure Disorder, Sleep Apnea/CPAP/BIPAP Additional Past Medical History / Comment(s): LAST SEIZURE 2018; lumbar radiculopathy; neuropathy; no CPAP needed per recent sleep study, hx. lung cancer Last Myocardial Infarction Date:: 10/22/10 History of Any Multi-Drug Resistant Organisms: None Reported Past Surgical History: Back Surgery, Cholecystectomy, Heart Catheterization With Stent Additional Past Surgical History / Comment(s): LAMINECTOMY ,fusion,spinal stimulator LEFT SHOULDER sx, 07-31-15 revison thoracic laminectomy t10- t11/removal of neuro stimulator and wires removed, fused L1&2 to a cage fusion that was previously put in to L3,4,5. May 27/2018. lobectomy of right middle lung Past Anesthesia/Blood Transfusion Reactions: No Reported Reaction Date of Last Stent Placement:: 10/22/10 Past Psychological History: Depression Smoking Status: Former smoker Past Alcohol Use History: None Reported Past Drug Use History: None Reported - Past Family History Brother(s) Family Medical History: Deep Vein Thrombosis (DVT) Mother Family Medical History: Osteoarthritis (OA) Additional Family Medical History / Comment(s): psoriases, Parkinsons Father Family Medical History: Coronary Artery Disease (CAD) Additional Family Medical History / Comment(s): heart problems- quad bypass, Medications and Allergies Home Medications Medication Instructions Recorded Confirmed Type metFORMIN HCL 1,000 mg PO BID@0800,1700 07/24/15 05/03/20 History Atorvastatin [Lipitor] 20 mg PO DIRECTED 03/28/19 05/03/20 History levETIRAcetam [Keppra] 750 mg PO DAILY@1400 03/28/19 05/03/20 History Acetaminophen [Tylenol] 650 mg PO Q6H PRN 05/30/19 05/03/20 History Insulin Glargine,Hum.rec.anlog 14 unit SQ HS@209905/30/19 05/03/20 History [Basaglar Kwikpen U-100] Linagliptin [Tradjenta] 5 mg PO DAILY@0900 05/30/19 05/03/20 History Midodrine HCl [ProAmatine] 10 mg PO TID@0900,1300,2100 PRN 05/30/19 05/03/20 History rOPINIRole HCL [Requip] 3 mg PO TID@0600,1400,2200 05/30/19 05/03/20 History DULoxetine HCL [Cymbalta] 60 mg PO BID@0900,209907/21/19 05/03/20 History Divalproex Sodium [Depakote] 500 mg PO TID@0900,1300,209907/21/19 05/03/20 History Ergocalciferol [Vitamin D2 50,000 units PO ANDERSON@89907/21/19 05/03/20 History (DRISDOL)] Montelukast [Singulair] 10 mg PO HS@209907/21/19 05/03/20 History Sertraline [Zoloft] 50 mg PO DAILY@89907/21/19 05/03/20 History Famotidine [Pepcid] 20 mg PO BID@09,209911/20/19 05/03/20 History Furosemide [Lasix] 20 mg PO DAILY@89911/20/19 05/03/20 History Melatonin 10 mg PO HS@209911/20/19 05/03/20 History Aspirin 81 mg PO DAILY@89902/12/20 05/03/20 History Azelastine HCl 2 spray EA NOSTRIL BID PRN 02/12/20 05/03/20 History Loperamide [Imodium] 2 mg PO DIRECTED 02/12/20 05/03/20 History Metoprolol Tartrate [Lopressor] 12.5 mg PO BID@899,2099 PRN 02/12/20 05/03/20 History Potassium Chloride [K-Tab ER] 20 meq PO DAILY@89902/12/20 05/03/20 History bisacodyL [Bisacodyl] 10 mg RECTAL DAILY PRN 02/12/20 05/03/20 History guaiFENesin [Mucinex] 600 mg PO BID@0900,209902/12/20 05/03/20 History fentaNYL 75MCG/HR PATCH [Duragesic 75 mcg TRANSDERM Q72H #1 patch 02/14/20 05/03/20 Rx 75MCG/HR] Celecoxib [CeleBREX] 200 mg PO DAILY@89905/03/20 05/03/20 History Clotrimazole/Betamethasone Dip 1 applic TOPICAL BID PRN 05/03/20 05/03/20 History [Lotrisone Cream] Insulin Aspart [NovoLOG Flexpen] 3 units SQ AC-TID 05/03/20 05/03/20 History Insulin Aspart [NovoLOG Flexpen] See Protocol SQ AC-TID PRN 05/03/20 05/03/20 History Insulin NPH Human Isophane 10 units SQ DAILY@0900 PRN 05/03/20 05/03/20 History [NovoLIN N] Magnesium Hydroxide [Milk of 2,400 mg PO DAILY PRN 05/03/20 05/03/20 History Magnesia] Methocarbamol [Robaxin-750] 750 mg PO DAILY@0600,1400,2200 05/03/20 05/03/20 History Morphine Sul Solution 20mg/5ml 20 mg PO Q4H PRN 05/03/20 05/03/20 History Pregabalin [Lyrica] 100 mg PO TID@0600,1300,2100 05/03/20 05/03/20 History levETIRAcetam [Keppra] 1,500 mg PO BID@0900,2100 05/03/20 05/03/20 History predniSONE 10 mg PO DAILY@0600 PRN 05/03/20 05/03/20 History traZODone HCL [Desyrel] 75 mg PO HS@2100 05/03/20 05/03/20 History Allergies Allergy/AdvReac Type Severity Reaction Status Date / Time baclofen Allergy Unknown Verified 05/03/20 15:01 cyclobenzaprine Allergy Unknown Verified 05/03/20 15:01 [From Flexeril] Physical Exam Vitals: Vital Signs Temp Pulse Resp BP Pulse Ox 05/03/20 14:09 82 18 98/77 100 05/03/20 13:14 79 18 99/57 96 05/03/20 12:14 98.6 F 84 18 115/81 99 Intake and Output 05/03/20 05/03/20 05/03/20 06:59 14:59 22:59 Other: Weight 127.006 kg General Appearance: Alert, cooperative, no distress, morbidly obese Neck HEENT: Supple, no lymphadenopathy, no thyroid enlargement, no carotid bruits. Lungs: Decreased breath some bilaterally with fine rhonchi no crackles plasmatic spread wheezes. Chest Wall: Decrease expansion with deep inspiration no tenderness and no deformity was found on exam, no costochondral pain or discomfort. Heart: Regular rate and rhythm, S1, S2 normal, no murmur, rub or gallop. Positive history positive JVD. Back: Symmetric, no curvature, ROM normal, no CVA tenderness. Abdomen: Soft, non-tender, bowel sounds active all four quadrants, no masses, no organomegaly. Extremities: Extremities normal, atraumatic, no cyanosis positive edema Pulses: 2+ and symmetric. Skin: Skin color, texture, tugor normal, no rashes or lesions. Neurologic: Alert oriented x3 cranial nerves II through XII intact, positive significant weakness in the left side compared to the right side. Results CBC & Chem 7: 05/03/20 13:06 05/03/20 13:06 Labs: Abnormal Lab Results - Last 24 Hours (Table) 05/03/20 05/03/20 Range/Units 13:06 13:06 Hgb 12.5 L (13.0-17.5) gm/dL Sodium 136 L (137-145) mmol/L Potassium 5.2 H (3.5-5.1) mmol/L Chloride 97 L (98-107) mmol/L Creatinine 0.51 L (0.66-1.25) mg/dL Glucose 274 H (74-99) mg/dL Thrombosis Risk Factor Assmnt - DVT/VTE Prophylaxis DVT/VTE Prophylaxis: Pharmacologic Prophylaxis ordered, Mechanical Prophylaxis ordered Assessment and Plan Assessment: 1 chest pain and angina: An known history of coronary artery disease seeing cardiology regular basis, will admit patient to the hospital CK with troponin 3 be done patient be seen cardiology echocardiogram will be order and if any change patient might be going either for heart cath or stress test. 2 known history of atherosclerotic heart disease post angioplasty and stent placement past. 3 COPD: Continue patient on O2 along with updraft treatment with DuoNeb and if needed Pulmicort. 4 chronic pain syndrome: Has been on Lyrica 100 mg 3 times a day along with morphine sulfate 20 mg every 4 hours. 5 type 2 diabetes on insulin: Continue NPH 10 units daily, Levemir 14 units daily at bedtime, NovoLog 3 units before meals meals on sliding scales coverage. Also still on Tradjenta 5 mg daily. And the Glucophage 1000 mg twice a day. 6 history of seizure: Has been doing well on Keppra 750 mg in the afternoon and 1500 mg a.m. and bedtime. 7 hyperlipidemia: Continue atorvastatin 20 mg daily. 8 chronic depression: Has been on Depakote and Cymbalta. 9 history of seizure: Has been stable. 10 restless leg syndrome: Remain on Requip. 11 Mild hypotension: Still on midodrine 10 mg 3 times a day. 12 chronic neuropathy: Has been on Lyrica doing slightly better. 13 GI prophylaxis: Continue patient on Pepcid 20 mg twice a day. 14 DVT prophylaxis: Continue patient on knee-high FAYE hose and Venodyne boots. CODE STATUS: Full code. Admit patient to inpatient status for 1-2 nights. Thank you
[2020-05-04] MEDS: NITROGLYCERIN OINT 1 INCH/GM PACKET TOPICAL SCH ×5 (01:22→23:26)
[2020-05-04] MEDS: MORPHINE ORAL SOLN 10 MG/5 ML CUP PO PRN ×6 (02:56→23:26)
[2020-05-04] MEDS: ACETAMINOPHEN TAB 325 MG TAB PO PRN ×2 (04:17→19:59)
[2020-05-04 04:28] LABS: Cholesterol 223 mg/dL (<200); HDL Cholesterol 34 mg/dL (40-60); LDL Cholesterol,Calculated 151 mg/dL (0-99); Triglycerides 189 mg/dL (<150)
[2020-05-04] MEDS: PREGABALIN 100 MG CAP PO SCH ×3 (07:05→20:00)
[2020-05-04 07:51] LABS: Glucose,Whole Blood 239 mg/dL (75-99)
[2020-05-04] MEDS: INSULIN ASPART (NovoLOG) 100 UNIT/ML VIAL SQ SCH ×7 (07:52→21:19)
[2020-05-04] MEDS: SERTRALINE 50 MG TAB PO SCH (08:15)
[2020-05-04] MEDS: DULoxetine HCL 60 MG CAPSULE.DR PO SCH ×2 (08:15→19:59)
[2020-05-04] MEDS: POTASSIUM CHLORIDE ER 20 MEQ TAB.ER PO SCH (08:15)
[2020-05-04] MEDS: methocarbamoL 750 MG TAB PO SCH ×3 (08:15→21:18)
[2020-05-04] MEDS: FAMOTIDINE 20 MG TAB PO SCH ×2 (08:15→20:00)
[2020-05-04] MEDS: DIVALPROEX 500 MG TABLET.DR PO SCH ×3 (08:15→19:59)
[2020-05-04] MEDS: guaiFENesin 600 MG TABLET.ER PO SCH ×2 (08:15→20:00)
[2020-05-04] MEDS: FUROSEMIDE 20 MG TAB PO SCH (08:15)
[2020-05-04] MEDS: ASPIRIN 81 MG PO SCH (08:22)
[2020-05-04] MEDS ORDERED: ASPIRIN 325 MG TAB PO SCH (09:00)
[2020-05-04] MEDS ORDERED: INSULIN NPH 300 UNIT/3 ML VIAL SQ PRN (09:00)
[2020-05-04] MEDS ORDERED: NITROGLYCERIN SL TABS 0.4 MG TAB SUBLINGUAL PRN (11:03)
[2020-05-04] MEDS ORDERED: ALPRAZolam 0.5 MG TAB PO PRN (11:03)
[2020-05-04] MEDS ORDERED: ALPRAZolam 0.25 MG TAB PO PRN (11:03)
[2020-05-04] MEDS ORDERED: HEPARIN SODIUM,PORCINE 5,000 UNIT/ML 1 ML VIAL IV ONE (11:04)
[2020-05-04] MEDS ORDERED: METOPROLOL TARTRATE 25 MG TAB PO PRN (11:06)
--- NOTE | 2020-05-04 11:31 | P.PN ---
Subjective Progress Note Date: 05/04/20 54-year-old morbidly obese male from [facility] [place] who had previous history of CVA 3 left him with left-sided weakness significant decreased mobility, history of hypertension, diabetes, hyperlipidemia who is also known to have history of lung cancer post right middle lobe resection. Patient developed to have midsternal chest pain lasted for over an hour and half with severe associated with palpitation mild nausea and see if and shortness of breath developed to have mild numbness in the left arm area. Patient ended up being sent to demurs department at [facility] where was seen his first troponin was negative blood sugar was quite but elevated initially his EKG showed normal sinus rhythm with might new major abnormality. Chest x-ray shows mild early venous congestion with interstitial pneumonitis. Patient was admitted to the hospital for recurrent angina with known history of CAD post angioplasty and stent placement. 05/04: Patient is seen today while sitting in a wheelchair. He states he uses wheelchair to get to the bathroom. Cardiology has evaluated this morning with plan for heart catheterization on Wednesday. Diet will be started. air sampling and monitoring has been a sinus rhythm. Repeat troponins of been negative. Blood sugars are running between 210 and 368. Patient complains of back pain. No chest pain at this time. He has been afebrile, heart rate 79, blood pressure 128/68, pulse ox 99% on room air. Review of Systems CONSTITUTIONAL: Well-developed no acute respiratory distress. Denies fever, denies chills. EYES: No icterus sclerae, no conjunctivitis. EARS, NOSE, MOUTH, THROAT, and FACE: No sore throat, lymphadenopathy, carotid bruits or deformity. RESPIRATORY: Positive shortness of breath no cough wheezes. CARDIOVASCULAR: Positive PND with her new palpitation and angina. GASTROINTESTINAL: No Abd pain, Nausea or vomiting, no Diarrhea or constipation, No GI Bleed, no distention or masses. GENITOURINARY: Negative for Hematuria or UTI, no kidney stones. Mild urinary retention. INTEGUMENT/BREAST: Negative for any muscular injury with mild osteoarthritis.. HEMATOLOGIC/LYMPHATIC: Negative for bleed or purpura. MUSCULOSKELTAL: Negative for Myalgia or arthralgia. NEURLOGICAL: Significant weakness the left side compared to the right side mild slurred speech severe abnormal balance and gait and decreased mobility. BEHAVIORAL/PSYCH: Negative. ENDOCRINE: Hyperglycemic. Physical examination General Appearance: Alert, cooperative, no distress, morbidly obese, sitting in wheelchair Neck HEENT: Supple, no lymphadenopathy, no thyroid enlargement, no carotid bruits. Lungs: Decreased breath some bilaterally with fine rhonchi no crackles plasmatic spread wheezes. Chest Wall: Decrease expansion with deep inspiration no tenderness and no deformity was found on exam, no costochondral pain or discomfort. Heart: Regular rate and rhythm, S1, S2 normal, no murmur, rub or gallop. Po sitive history positive JVD. Back: Symmetric, no curvature, ROM normal, no CVA tenderness. Abdomen: Soft, non-tender, bowel sounds active all four quadrants, no masses, no organomegaly. Extremities: Extremities normal, atraumatic, no cyanosis positive edema Pulses: 2+ and symmetric. Skin: Skin color, texture, tugor normal, no rashes or lesions. Neurologic: Alert oriented x3 cranial nerves II through XII intact, positive significant weakness in the left side compared to the right side. Assessment and Plan 1 chest pain and angina: known history of coronary artery disease seeing cardiology regular basis, will admit patient, cardiology consult appreciated. Echocardiogram, heart catheterization on Wednesday. 2 known history of atherosclerotic heart disease post angioplasty and stent placement past. 3 COPD: Continue patient on O2 along with updraft treatment with DuoNeb and if needed Pulmicort. 4 chronic pain syndrome: Has been on Lyrica 100 mg 3 times a day along with morphine sulfate 20 mg every 4 hours. 5 type 2 diabetes on insulin, uncontrolled with hyperglycemia. Continue Levemir 14 units daily at bedtime, NovoLog 3 units before meals meals on sliding scales coverage. Also still on Tradjenta 5 mg daily. Glucophage 1000 mg twice a day is on hold. 6 history of seizure: Has been doing well on Keppra 750 mg in the afternoon and 1500 mg a.m. and bedtime. 7 hyperlipidemia: Continue atorvastatin 20 mg daily. 8 recurrent depression: Has been on Depakote and Cymbalta. 9 history of seizure. Continue Keppra. 10 restless leg syndrome: Remain on Requip. 11 Mild hypotension: Still on midodrine 10 mg 3 times a day. 12 chronic neuropathy: Has been on Lyrica doing slightly better. 13 GI prophylaxis: Continue patient on Pepcid 20 mg twice a day. 14 DVT prophylaxis: Continue patient on knee-high FAYE hose and Venodyne boots. CODE STATUS: Full code. Discharge plan: Return to [facility] most likely on Wednesday or Wednesday Impression and plan of care have been directed as dictated by the signing physician. Eleonora Almeida nurse practitioner acting as scribe for signing physician. Objective - Vital Signs Vital signs: Vital Signs Temp 98.3 F 05/03/20 21:45 Pulse 79 05/04/20 03:00 Resp 18 05/04/20 03:00 BP 128/68 05/04/20 03:00 Pulse Ox 99 05/04/20 03:00 Intake & Output 05/03/20 05/04/20 05/04/20 18:59 06:59 18:59 Weight 127.006 kg 127.006 kg Other: Voiding Method Toilet # Voids 1 1 - Labs CBC & Chem 7: 05/03/20 13:06 05/03/20 13:06 Labs: Abnormal Lab Results - Last 24 Hours (Table) 05/03/20 05/03/20 05/03/20 Range/Units 13:06 13:06 13:06 Hgb 12.5 L (13.0-17.5) gm/dL Sodium 136 L (137-145) mmol/L Potassium 5.2 H (3.5-5.1) mmol/L Chloride 97 L (98-107) mmol/L Creatinine 0.51 L (0.66-1.25) mg/dL Glucose 274 H (74-99) mg/dL POC Glucose (mg/dL) (75-99) mg/dL Triglycerides 189 H (<150) mg/dL Cholesterol 223 H (<200) mg/dL LDL Cholesterol, Calc 151 H (0-99) mg/dL HDL Cholesterol 34 L (40-60) mg/dL 05/03/20 05/03/20 05/04/20 Range/Units 16:50 21:49 07:50 Hgb (13.0-17.5) gm/dL Sodium (137-145) mmol/L Potassium (3.5-5.1) mmol/L Chloride (98-107) mmol/L Creatinine (0.66-1.25) mg/dL Glucose (74-99) mg/dL POC Glucose (mg/dL) 368 H 210 H 239 H (75-99) mg/dL Triglycerides (<150) mg/dL Cholesterol (<200) mg/dL LDL Cholesterol, Calc (0-99) mg/dL HDL Cholesterol (40-60) mg/dL
[2020-05-04 11:38] LABS: Basophils % (A) 1 %; Eosinophils # (A) 0.2 k/uL (0-0.7); Eosinophils % (A) 3 %; HCT 36.4 % (39.0-53.0); HGB 11.7 gm/dL (13.0-17.5); Lymphocytes # (A) 2.2 k/uL (1.0-4.8); Lymphocytes % (A) 41 %; MCH 28.4 pg (25.0-35.0); MCHC 32.1 g/dL (31.0-37.0); MCV 88.2 fL (80.0-100.0); Mean Platelet Volume 7.9; Monocytes # (A) 0.4 k/uL (0-1.0); Monocytes % (A) 6 %; Neutrophils # (A) 2.5 k/uL (1.3-7.7); Neutrophils % (A) 47 %; Platelet Count 175 k/uL (150-450); RBC 4.12 m/uL (4.30-5.90); RDW 14.5 % (11.5-15.5); WBC 5.4 k/uL (3.8-10.6)
[2020-05-04 11:48] LABS: INR 0.9 (<1.2); Partial Thromboplastin Time 22.7 sec (22.0-30.0); Prothrombin Time 9.5 sec (9.0-12.0)
--- NOTE | 2020-05-04 11:49 | CONS ---
CONSULTATION Mr. Amaya is a 54-year-old male with a known history of coronary artery disease who presented to the hospital with symptoms of chest discomfort. He has been followed by Dr. Marija Sotelo. Last time seen about a year or so ago. He was at rest yesterday when he had chest discomfort in the lower chest that reoccurred at this morning. He is pain free at the time of my evaluation. The patient had in 2010 sustained a myocardial infarction and underwent stenting by Dr. Marija Sotelo. His activity has been limited since 2018 after he sustained a stroke following back surgery and subsequently was diagnosed with lung cancer and underwent a right middle lobe resection but has not required chemotherapy. No radiation. He has some dyspnea on exertion. He has not had any significant chest discomfort until this episode. He denies any dizziness or palpitation. No syncope. He has some peripheral edema. No clear PND nor orthopnea. He uses a stationary bike and has been active with that. The discomfort yesterday occurred after he used the bike when he was resting. His coronary risk factors remarkable for a long-standing history of diabetes. He has hyperlipidemia. He is a nonsmoker. He stopped long time ago. His medications include aspirin Lipitor 20 mg daily, insulin, potassium, furosemide 20 mg daily, metformin, Zoloft, Tradjenta, Singulair, Desyrel, Cymbalta, metoprolol tartrate 12.5 mg twice a day, Lyrica and Requip. REVIEW OF SYSTEMS: Respiratory system: He has some dyspnea on exertion. No recent wheezing or cough. GI system: No recent GI bleeding. No peptic ulcer disease. system: No dysuria or hematuria. Nervous system: He had a history of stroke as noted. PHYSICAL EXAMINATION: He is a 54-year-old male, alert, oriented, in no apparent distress. Blood pressure running in the 120s with a heart rate in 70s. HEAD: Normocephalic. Eyes sclerae anicteric. NECK: Good upstroke. No bruit. LUNGS: Clear to auscultation. HEART: Regular rate and rhythm, S1, S2. No S3 with no rub or gallop. ABDOMEN: Soft. Obese. Nontender. EXTREMITIES: +1 edema. Left-sided weakness noted. LAB DATA: Revealed a troponin less than 0.012, potassium 5.2. BUN and creatinine 13 and 0.51, hemoglobin of 12.5. His cholesterol is 223, LDL of 151. EKG revealed a sinus mechanism, normal axis and intervals. No acute changes. Chest x-ray shows no acute infiltrate. IMPRESSION: 1. Chest discomfort with no evidence of myocardial infarction, but highly suggestive of angina pectoris in a patient with known history of coronary disease. 2. Status post stenting following myocardial infarction. Of note that in 2018 systolic function was preserved at that time. 3. History of hypertension. 4. Hyperlipidemia. 5. Diabetes mellitus. 6. Status post cerebrovascular accident. 7. History of lung cancer. RECOMMENDATIONS: I will increase the dose of his statin. I will obtain echocardiogram with Doppler. I will start him on IV heparin. I have recommend proceeding with coronary angiography to further assess his status and guide his treatment. The procedure will be done by Dr. Sotelo on Wednesday unless he has recurrent symptoms. I have discussed those findings and recommendations with the patient and his family and they are in full understanding and agreement. Thank you for this consult. We will follow with you. ALYSSAL / IJN: [id number] /
[2020-05-04 12:22] LABS: Glucose,Whole Blood 286 mg/dL (75-99)
[2020-05-04] MEDS: metFORMIN 500 MG TAB PO SCH (12:37)
[2020-05-04] MEDS: LINAGLIPTIN 5 MG TABLET PO SCH (13:03)
[2020-05-04] MEDS: HEPARIN SOD,PORK IN 0.45% NACL 25,000 UNIT in 0.45% NACL 1 250ML.BAG IV SCH (13:04)
--- NOTE | 2020-05-04 15:17 | ECHOF ---
Referral Reason:cad MEASUREMENTS -------- HEIGHT: 180.3 cm WEIGHT: 127.0 kg BP: RVIDd: 3.4 cm (< 3.3) IVSd: 1.5 cm (0.6 - 1.1) LVIDd: 3.9 cm (3.9 - 5.3) LVPWd: 1.5 cm (0.6 - 1.1) IVSs: 2.3 cm LVIDs: 1.5 cm LVPWs: 2.2 cm Ao Diam: 3.6 cm (2.0 - 3.7) AV Cusp: 2.1 cm (1.5 - 2.6) LA Diam: 3.3 cm (2.7 - 3.8) MV EXCURSION: 16.659 mm (> 18.000) MV EF SLOPE: 115 mm/s (70 - 150) EPSS: 0.7 cm MV E Rupert: 0.81 m/s MV DecT: 215 ms MV A Rupert: 0.90 m/s MV E/A Ratio: 0.89 RAP: 5.00 mmHg RVSP: 16.53 mmHg FINDINGS -------- Sinus rhythm. This was a technically difficult study with suboptimal views. The left ventricular size is normal. There is moderate concentric left ventricular hypertrophy. O verall left ventricular systolic function is normal with, an EF between 55 - 60 %. The diastolic fi lling pattern is normal for the age of the patient 12.57. The right ventricle is normal in size. The left atrial size is normal. The right atrial size is normal. Lumason used The aortic valve is trileaflet, and appears structurally normal. No aortic stenosis or regurgitation. The mitral valve is normal. There is trace mitral regurgitation. The tricuspid valve appears structurally normal. Trace tricuspid regurgitation present. Right liu tricular systolic pressure is normal at < 35 mmHg. The pulmonic valve was not well visualized. There is no pulmonic regurgitation present. The aortic root size is normal. IVC Not well visulized. There is no pericardial effusion. CONCLUSIONS -------- 1. There is moderate concentric left ventricular hypertrophy. 2. Overall left ventricular systolic function is normal with, an EF between 55 - 60 %. 3. The left atrial size is normal. 4. Lumason used 5. The aortic valve is trileaflet, and appears structurally normal. No aortic stenosis or regurgitati on. 6. There is trace mitral regurgitation. 7. Trace tricuspid regurgitation present. CONSTRUCTION IRONWORKER: Na Deshpande RDCS
[2020-05-04 18:02] LABS: Glucose,Whole Blood 203 mg/dL (75-99)
[2020-05-04] MEDS: HEPARIN SODIUM,PORCINE 5,000 UNIT/ML 1 ML VIAL IV PRN (18:08)
[2020-05-04] MEDS: traZODone HCL 50 MG TAB PO SCH (19:59)
[2020-05-04] MEDS: MONTELUKAST 10 MG TAB PO SCH (20:00)
[2020-05-04 20:23] LABS: Glucose,Whole Blood 225 mg/dL (75-99)
[2020-05-04] MEDS: MELATONIN 5 MG TABLET PO SCH (21:18)
[2020-05-04] MEDS: INSULIN DETEMIR (LEVEMIR) 100 UNIT/ML SYR SQ SCH (21:18)
[2020-05-05] MEDS: MORPHINE ORAL SOLN 10 MG/5 ML CUP PO PRN ×4 (04:32→17:27)
[2020-05-05] MEDS: NITROGLYCERIN OINT 1 INCH/GM PACKET TOPICAL SCH ×4 (05:41→23:08)
[2020-05-05] MEDS: PREGABALIN 100 MG CAP PO SCH ×3 (05:41→20:45)
[2020-05-05] MEDS: methocarbamoL 750 MG TAB PO SCH ×3 (05:41→20:45)
[2020-05-05 06:14] LABS: Glucose,Whole Blood 379 mg/dL (75-99)
[2020-05-05] MEDS: INSULIN ASPART (NovoLOG) 100 UNIT/ML VIAL SQ SCH ×7 (06:21→20:46)
[2020-05-05 08:13] LABS: Basophils % (A) 1 %; Eosinophils # (A) 0.2 k/uL (0-0.7); Eosinophils % (A) 3 %; HCT 34.6 % (39.0-53.0); Lymphocytes # (A) 2.4 k/uL (1.0-4.8); Lymphocytes % (A) 41 %; MCH 28.2 pg (25.0-35.0); MCHC 31.8 g/dL (31.0-37.0); MCV 88.5 fL (80.0-100.0); Monocytes # (A) 0.3 k/uL (0-1.0); Monocytes % (A) 5 %; Neutrophils # (A) 2.8 k/uL (1.3-7.7); Neutrophils % (A) 48 %; Platelet Count 174 k/uL (150-450); RBC 3.91 m/uL (4.30-5.90); RDW 14.5 % (11.5-15.5); WBC 5.7 k/uL (3.8-10.6)
[2020-05-05] MEDS: FUROSEMIDE 20 MG TAB PO SCH (08:29)
[2020-05-05] MEDS: FAMOTIDINE 20 MG TAB PO SCH ×2 (08:29→20:43)
[2020-05-05] MEDS: ASPIRIN 81 MG PO SCH (08:29)
[2020-05-05] MEDS: SERTRALINE 50 MG TAB PO SCH (08:30)
[2020-05-05] MEDS: LINAGLIPTIN 5 MG TABLET PO SCH (08:30)
[2020-05-05] MEDS: guaiFENesin 600 MG TABLET.ER PO SCH ×2 (08:30→20:44)
[2020-05-05] MEDS: DULoxetine HCL 60 MG CAPSULE.DR PO SCH ×2 (08:30→20:43)
[2020-05-05] MEDS: DIVALPROEX 500 MG TABLET.DR PO SCH ×3 (08:30→20:43)
[2020-05-05 08:39] LABS: African American GFR (CKD) >90 (>60 ml/min/1.73 sqM); Anion Gap 7 mmol/L; Blood Urea Nitrogen 17 mg/dL (9-20); Calcium 8.7 mg/dL (8.4-10.2); Carbon Dioxide 31 mmol/L (22-30); Chloride 99 mmol/L (98-107); Glucose 314 mg/dL (74-99); Non-African American GFR(CKD) >90 (>60 ml/min/1.73 sqM); Potassium 4.4 mmol/L (3.5-5.1); Sodium 137 mmol/L (137-145)
[2020-05-05] MEDS: HEPARIN SOD,PORK IN 0.45% NACL 25,000 UNIT in 0.45% NACL 1 250ML.BAG IV SCH ×2 (08:39→20:46)
[2020-05-05] MEDS ORDERED: ERGOCALCIFEROL 50,000 UNIT CAP PO SCH (09:00)
--- NOTE | 2020-05-05 10:09 | P.PN ---
Subjective Progress Note Date: 05/05/20 54-year-old morbidly obese male from [facility] on the [address] who had previous history of CVA 3 left him with left-sided weakness significant decreased mobility, history of hypertension, diabetes, hyperlipidemia who is also known to have history of lung cancer post right middle lobe resection. Patient developed to have midsternal chest pain lasted for over an hour and half with severe associated with palpitation mild nausea and see if and shortness of breath developed to have mild numbness in the left arm area. Patient ended up being sent to demurs department at [facility] where was seen his first troponin was negative blood sugar was quite but elevated initially his EKG showed normal sinus rhythm with might new major abnormality. Chest x-ray shows mild early venous congestion with interstitial pneumonitis. Patient was admitted to the hospital for recurrent angina with known history of CAD post angioplasty and stent placement. 05/04: Patient is seen today while sitting in a wheelchair. He states he uses wheelchair to get to the bathroom. Cardiology has evaluated this morning with plan for heart catheterization on Wednesday. Diet will be started. quality assurance monitor final has been a sinus rhythm. Repeat troponins of been negative. Blood sugars are running between 210 and 368. Patient complains of back pain. No chest pain at this time. He has been afebrile, heart rate 79, blood pressure 128/68, pulse ox 99% on room air. 05/05: Patient has been afebrile, heart rate 94, blood pressure 120/71, pulse ox 96% on room air. Repeat blood work revealed WBC 5.7, hemoglobin 11.0. BUN 17 and creatinine 0.58, potassium 4.4. Blood sugars are running in the 300s and scheduled NovoLog will be increased to 6 units. Patient denies any new complaints. Echocardiogram reveals EF of 55-60% with moderate concentric left ventricular hypertrophy, trace mitral regurgitation, trace tricuspid regurgitation. He is on a heparin drip and scheduled for heart catheterization tomorrow. Review of Systems CONSTITUTIONAL: Well-developed no acute respiratory distress. Denies fever, denies chills. EYES: No icterus sclerae, no conjunctivitis. EARS, NOSE, MOUTH, THROAT, and FACE: No sore throat, lymphadenopathy, carotid bruits or deformity. RESPIRATORY: Positive shortness of breath no cough wheezes. CARDIOVASCULAR: Positive PND with her new palpitation and angina. GASTROINTESTINAL: No Abd pain, Nausea or vomiting, no Diarrhea or constipation, No GI Bleed, no distention or masses. GENITOURINARY: Negative for Hematuria or UTI, no kidney stones. Mild urinary retention. INTEGUMENT/BREAST: Negative for any muscular injury with mild osteoarthritis. No change. HEMATOLOGIC/LYMPHATIC: Negative for bleed or purpura. MUSCULOSKELTAL: Negative for Myalgia or arthralgia. NEURLOGICAL: Significant weakness the left side compared to the right side mild slurred speech severe abnormal balance and gait and decreased mobility. BEHAVIORAL/PSYCH: Negative. ENDOCRINE: Hyperglycemic. Physical examination General Appearance: Alert, cooperative, no distress, morbidly obese, resting in bed and appears comfortable. Neck HEENT: Supple, no lymphadenopathy, no thyroid enlargement, no carotid bruits. Lungs: Decreased breath some bilaterally with fine rhonchi no crackles plasmatic spread wheezes. Chest Wall: Decrease expansion with deep inspiration no tenderness and no deformity was found on exam, no costochondral pain or discomfort. Heart: Regular rate and rhythm, S1, S2 normal, no murmur, rub or gallop. Positive history positive JVD. Back: Symmetric, no curvature, ROM normal, no CVA tenderness. Abdomen: Soft, non-tender, bowel sounds active all four quadrants, no masses, no organomegaly. Extremities: Extremities normal, atraumatic, no cyanosis positive edema Pulses: 2+ and symmetric. Skin: Skin color, texture, tugor normal, no rashes or lesions. Neurologic: Alert oriented x3 cranial nerves II through XII intact, positive significant weakness in the left side compared to the right side. Assessment and Plan 1 chest pain and angina: known history of coronary artery disease seeing cardiology regular basis, will admit patient, cardiology consult appreciated. Echocardiogram as above, continue heparin drip, heart catheterization on Wednesday. 2 known history of atherosclerotic heart disease post angioplasty and stent placement past. 3 COPD: Continue patient on O2 along with updraft treatment with DuoNeb and if needed Pulmicort. 4 chronic pain syndrome: Has been on Lyrica 100 mg 3 times a day along with morphine sulfate 20 mg every 4 hours. 5 type 2 diabetes on insulin, uncontrolled with hyperglycemia. Continue Levemir 14 units daily at bedtime, NovoLog 3 units before meals meals on sliding scales coverage. Also still on Tradjenta 5 mg daily. Glucophage 1000 mg twice a day is on hold. 6 history of seizure: Has been doing well on Keppra 750 mg in the afternoon and 1500 mg a.m. and bedtime. 7 hyperlipidemia: Continue atorvastatin 20 mg daily. 8 recurrent depression: Has been on Depakote and Cymbalta. 9 history of seizure. Continue Keppra. 10 restless leg syndrome: Remain on Requip. 11 Mild hypotension: Still on midodrine 10 mg 3 times a day. 12 chronic neuropathy: Has been on Lyrica doing slightly better. 13 GI prophylaxis: Continue patient on Pepcid 20 mg twice a day. 14 DVT prophylaxis: Continue patient on knee-high FAYE hose and Venodyne boots. CODE STATUS: Full code. Discharge plan: Return to [facility] most likely on Wednesday or Wednesday Impression and plan of care have been directed as dictated by the signing mindi cisneros. Eleonora Almeida nurse practitioner acting as scribe for signing physician. Objective - Vital Signs Vital signs: Vital Signs Temp 98.2 F 05/05/20 03:35 Pulse 94 05/05/20 03:35 Resp 17 05/05/20 03:35 BP 128/71 05/05/20 03:35 Pulse Ox 96 05/05/20 03:35 Intake & Output 05/04/20 05/05/20 05/05/20 18:59 06:59 18:59 Intake Total 51.308 102.164 Balance 51.308 102.164 Weight 128.6 kg Intake: Intake, IV Titration 51.308 102.164 Amount Heparin Sod,Pork in 0.45% 51.308 102.164 NaCl 25,000 unit In 0.45 % NaCl 1 250ml.bag @ 7.87 UNITS/KG/HR 9.995 mls/hr IV .Q24H SILVINO Rx#: [id number] Other: # Voids 1 1 # Bowel Movements 1 - Labs CBC & Chem 7: 05/05/20 07:58 05/05/20 07:58 Labs: Abnormal Lab Results - Last 24 Hours (Table) 05/04/20 05/04/20 05/04/20 Range/Units 11:17 12:21 18:01 RBC 4.12 L (4.30-5.90) m/uL Hgb 11.7 L (13.0-17.5) gm/dL Hct 36.4 L (39.0-53.0) % APTT (22.0-30.0) sec POC Glucose (mg/dL) 286 H 203 H (75-99) mg/dL 05/04/20 05/05/20 05/05/20 Range/Units 20:21 06:13 07:58 RBC 3.91 L (4.30-5.90) m/uL Hgb 11.0 L (13.0-17.5) gm/dL Hct 34.6 L (39.0-53.0) % APTT (22.0-30.0) sec POC Glucose (mg/dL) 225 H 379 H (75-99) mg/dL 05/05/20 Range/Units 07:58 RBC (4.30-5.90) m/uL Hgb (13.0-17.5) gm/dL Hct (39.0-53.0) % APTT 32.9 H (22.0-30.0) sec POC Glucose (mg/dL) (75-99) mg/dL
[2020-05-05] MEDS: POTASSIUM CHLORIDE ER 20 MEQ TAB.ER PO SCH (10:30)
[2020-05-05] MEDS: HEPARIN SODIUM,PORCINE 5,000 UNIT/ML 1 ML VIAL IV PRN (10:47)
[2020-05-05 12:49] LABS: Glucose,Whole Blood 250 mg/dL (75-99)
[2020-05-05] MEDS: ACETAMINOPHEN TAB 325 MG TAB PO PRN (14:26)
--- NOTE | 2020-05-05 16:02 | PN ---
PROGRESS NOTE Mr. Amaya is a 54-year-old male with a history of coronary artery disease, history of stroke who presented with symptoms of chest discomfort. He has no further chest pain, but he has dyspnea on exertion and feels dizzy. He denies any palpitation. He continues to be in sinus mechanism. He continues to be at this time on aspirin once a day, Lipitor 40 mg daily, furosemide 20 mg daily, IV heparin, metoprolol tartrate 25 mg twice a day, Singulair 10 mg daily, nitro paste 1 inch q.6 hours. PHYSICAL EXAMINATION: Blood pressure 122/70 with a heart rate in the 80s. Lungs with decreased air exchange. No wheezes. HEART: Regular rate and rhythm S1, S2. No S3. No rub. ABDOMEN: Soft, nontender. Extremities trace to 1+ edema. LAB DATA: Revealed BUN and creatinine of 17 and 0.58, potassium 4.4, hemoglobin of 11. He had an echocardiogram performed yesterday that showed a preserved left ventricular size systolic function with no significant valvular abnormalities. IMPRESSION: 1. Chest discomfort suggestive of angina pectoris in a patient with known history of coronary artery disease. 2. History of cerebrovascular accident. 3. History of lung CA, stable. 4. Hyperlipidemia. 5. Hypertension. 6. Diabetes mellitus. RECOMMENDATION: From the cardiac standpoint, will continue present therapy. Patient is scheduled to undergo coronary angiography tomorrow by Dr. Marija Sotelo. In the meantime, we will continue on the IV heparin as planned. MMODL / IJN: [id number] /
[2020-05-05 17:26] LABS: Glucose,Whole Blood 224 mg/dL (75-99)
[2020-05-05 20:22] LABS: Glucose,Whole Blood 257 mg/dL (75-99)
[2020-05-05] MEDS: MELATONIN 5 MG TABLET PO SCH (20:44)
[2020-05-05] MEDS: traZODone HCL 50 MG TAB PO SCH (20:45)
[2020-05-05] MEDS: MONTELUKAST 10 MG TAB PO SCH (20:45)
[2020-05-05] MEDS: INSULIN DETEMIR (LEVEMIR) 100 UNIT/ML SYR SQ SCH (20:46)
[2020-05-05 22:11] LABS: Glucose,Whole Blood 244 mg/dL (75-99)
[2020-05-06] MEDS: MORPHINE ORAL SOLN 10 MG/5 ML CUP PO PRN ×5 (02:39→20:13)
[2020-05-06] MEDS: NITROGLYCERIN OINT 1 INCH/GM PACKET TOPICAL SCH ×3 (05:24→17:39)
[2020-05-06] MEDS: ASPIRIN 81 MG PO SCH ×2 (05:25→13:20)
[2020-05-06] MEDS: INSULIN ASPART (NovoLOG) 100 UNIT/ML VIAL SQ SCH ×7 (05:25→20:14)
[2020-05-06] MEDS: methocarbamoL 750 MG TAB PO SCH ×3 (05:28→22:47)
[2020-05-06] MEDS: PREGABALIN 100 MG CAP PO SCH ×3 (05:28→20:00)
[2020-05-06] MEDS: DIVALPROEX 500 MG TABLET.DR PO SCH ×3 (05:29→20:00)
[2020-05-06] MEDS: guaiFENesin 600 MG TABLET.ER PO SCH ×2 (05:29→20:03)
[2020-05-06] MEDS: DULoxetine HCL 60 MG CAPSULE.DR PO SCH ×2 (05:29→20:03)
[2020-05-06] MEDS: FAMOTIDINE 20 MG TAB PO SCH ×2 (05:29→20:00)
[2020-05-06] MEDS: POTASSIUM CHLORIDE ER 20 MEQ TAB.ER PO SCH (05:30)
[2020-05-06] MEDS: SERTRALINE 50 MG TAB PO SCH (05:30)
[2020-05-06] MEDS ORDERED: SODIUM CHLORIDE 0.9% 1,000 ML in EMPTY BAG 1 BAG IV ONE (06:00)
[2020-05-06] MEDS ORDERED: ASPIRIN 325 MG TAB PO ONE (06:00)
[2020-05-06] MEDS ORDERED: ATORVASTATIN 80 MG TAB PO ONE (06:00)
[2020-05-06 06:11] LABS: Glucose,Whole Blood 226 mg/dL (75-99)
[2020-05-06 06:59] LABS: Basophils % (A) 1 %; Eosinophils # (A) 0.1 k/uL (0-0.7); Eosinophils % (A) 2 %; HCT 34.5 % (39.0-53.0); HGB 10.7 gm/dL (13.0-17.5); Lymphocytes % (A) 37 %; MCH 27.3 pg (25.0-35.0); Mean Platelet Volume 7.5; Monocytes # (A) 0.4 k/uL (0-1.0); Monocytes % (A) 7 %; Neutrophils # (A) 2.8 k/uL (1.3-7.7); Neutrophils % (A) 52 %; Platelet Count 174 k/uL (150-450); RBC 3.92 m/uL (4.30-5.90); RDW 14.6 % (11.5-15.5); WBC 5.4 k/uL (3.8-10.6)
[2020-05-06 07:46] LABS: Glucose,Whole Blood 204 mg/dL (75-99)
[2020-05-06] MEDS ORDERED: MIDAZOLAM 2 MG/2 ML VIAL IV ONE (11:45)
[2020-05-06] MEDS ORDERED: LIDOCAINE 1% INJ 10MG/ML (20 ML MDV) SQ ONE (11:49)
[2020-05-06] MEDS ORDERED: IV FLUID CONTINUATION 700 ML IV ONE (11:52)
[2020-05-06] MEDS ORDERED: VERAPAMIL SYRINGE (5 MG/10 ML) INTRAARTER ONE (11:56)
[2020-05-06] MEDS ORDERED: IOPAMIDOL-370 100ML BTL INJ ONE (12:11)
[2020-05-06 12:46] LABS: Glucose,Whole Blood 112 mg/dL (75-99)
[2020-05-06] MEDS: LINAGLIPTIN 5 MG TABLET PO SCH (13:20)
[2020-05-06] MEDS: FUROSEMIDE 20 MG TAB PO SCH (13:20)
--- NOTE | 2020-05-06 14:25 | CC ---
CARDIAC CATHETERIZATION REPORT DATE OF SERVICE: May 06, 2020. PROCEDURE PERFORMED: Left heart catheterization and coronary angiography. PERFORMED BY: Dr. Marija Sotelo. SEDATION: Moderate conscious sedation time was 26 minutes. Patient was administered Versed. Oxygen saturation, hemodynamics and EKG were monitored closely. CLINICAL INFORMATION: Mr. Amaya is a 54-year-old gentleman with a history of type 2 diabetes, hypertension, hyperlipidemia, obesity, who in 2011 had a CAD, underwent stenting of mid RCA with a good result with bare metal stent. These stents were performed in either [facility] or in [facility]. However, he had back surgery in 2018 followed by 2 strokes with left-sided residual weakness. He came into the hospital with unstable angina. Enzymes were negative. He was advised cardiac cath after evaluation by Dr. Pritchett. I discussed with the patient the rationale, risks, benefits, options. He understood all details and wished to proceed with the procedure. PROCEDURE NOTE: Under local anesthesia and strict aseptic precautions, a 6-Romanian introducer was placed in the right radial artery. Using a JR4 and JL3.5 catheters, I performed coronary angiography and the same right Rosario catheter was used to check LV pressure but LV gram was not performed. By echocardiogram, LV function was normal. Following the procedure, a TR band was applied as per protocol with good saturation of the fingers of the right hand of more than 95%. CARDIAC CATHETERIZATION FINDINGS: The left ventricular end-diastolic pressure was about 10-11 mmHg without any gradient across aortic valve. CORONARY ANGIOGRAPHY FINDINGS: RIGHT CORONARY ARTERY: This is a dominant vessel. The catheter went somewhat inside and there was initially some spasm. After that, the mid segment of the RCA that was stented before is widely patent. There is a lesion of 40% in the proximal RCA at the origin of what seems to be an acute marginal branch as well as a small conus branch. This was viewed in multiple angles and I do not believe there is any significant lesion in the proximal RCA. In the mid RCA, which was stented is widely patent. Beyond the stented segment there appears to be an another area of narrowing of about 40% beyond which the caliber improves and the vessel bifurcates into a smaller PLV, larger PDA both of which supply a sizable amount of myocardium. RCA has a 40% lesion. The stented segment is patent and this is a dominant vessel. In multiple views, the proximal lesion does not appear to be more than 40%. LEFT MAIN CORONARY ARTERY: Short, patent disease-free vessel that bifurcates into LAD and circumflex. LEFT ANTERIOR DESCENDING CORONARY ARTERY: Moderate to heavily calcified vessel has about a 30% to 40% narrowing throughout. It gives off a diagonal branch which is of fair caliber. Before and after the diagonal there is another 40% narrowing. The entire vessel is moderately calcified and almost in the distal segment. Beyond the diagonal time, the caliber of the LAD decreases. It runs all the way to the apex supplying a sizable amount of myocardium. There is diffuse disease in the mid to distal LAD, but none of which is more than 40%. LEFT POSTERIOR CIRCUMFLEX CORONARY ARTERY: This is a nondominant vessel, gives off a high first obtuse marginal, which in the mid to distal portion has about a 60% to 70% eccentric lesion best seen in the caudal projection. After the origin of this high obtuse marginal, circumflex is free of significant disease. Midportion has a 30-35 percent narrowing, gives off a posterolateral branch and another small obtuse marginal branch. The circumflex has a first OM which has a 60% lesion distally and amount of myocardium supplied by this vessel is rather small. Left ventriculogram was not performed. FINAL IMPRESSION: This patient has a right dominant system, normal filling pressures. No gradient across aortic valve. The previously stented mid RCA is patent. Proximal RCA has a 40% and mid RCA off to the stented segment has another 40% lesion. The PDA is large disease- free. PLV is small. Left main and circumflex are free of significant disease but the first obtuse marginal has about a 60% narrowing and amount of myocardium beyond the stenosis is rather small that is being supplied by this. The LAD is moderate to heavily calcified with no more than 40% diffuse areas of disease. RECOMMENDATIONS: Findings were discussed with the patient at length. There was no family available. I am recommending continued medical therapy with increase in beta elijah and also increase in a statin to 80 mg daily. There was no family available for me to talk to. The patient will be discharged whenever it is okay by the admitting physician. MMODL / IJN: [id number] /
--- NOTE | 2020-05-06 14:40 | P.PN ---
Subjective Progress Note Date: 05/06/20 54-year-old morbidly obese male from [facility] [place] who had previous history of CVA 3 left him with left-sided weakness significant decreased mobility, history of hypertension, diabetes, hyperlipidemia who is also known to have history of lung cancer post right middle lobe resection. Patient developed to have midsternal chest pain lasted for over an hour and half with severe associated with palpitation mild nausea and see if and shortness of breath developed to have mild numbness in the left arm area. Patient ended up being sent to demurs department at [facility] where was seen his first troponin was negative blood sugar was quite but elevated initially his EKG showed normal sinus rhythm with might new major abnormality. Chest x-ray shows mild early venous congestion with interstitial pneumonitis. Patient was admitted to the hospital for recurrent angina with known history of CAD post angioplasty and stent placement. 05/04: Patient is seen today while sitting in a wheelchair. He states he uses wheelchair to get to the bathroom. Cardiology has evaluated this morning with plan for heart catheterization on Wednesday. Diet will be started. private tutor has been a sinus rhythm. Repeat troponins of been negative. Blood sugars are running between 210 and 368. Patient complains of back pain. No chest pain at this time. He has been afebrile, heart rate 79, blood pressure 128/68, pulse ox 99% on room air. 05/05: Patient has been afebrile, heart rate 94, blood pressure 120/71, pulse ox 96% on room air. Repeat blood work revealed WBC 5.7, hemoglobin 11.0. BUN 17 and creatinine 0.58, potassium 4.4. Blood sugars are running in the 300s and scheduled NovoLog will be increased to 6 units. Patient denies any new complaints. Echocardiogram reveals EF of 55-60% with moderate concentric left ventricular hypertrophy, trace mitral regurgitation, trace tricuspid regurgitation. He is on a heparin drip and scheduled for heart catheterization tomorrow. 05/06: Patient is scheduled for heart catheterization today. Patient ended up sleeping in the recliner last night. No chest pain or shortness of breath at rest. Patient has been afebrile, heart rate 80, blood pressure 126/80, pulse ox 96% on room air. Repeat blood work reveals WBC 5.4, hemoglobin 10.7, platelet count 174. Blood sugars running between 204 and 244. Anticipate discharge back to [facility] tomorrow. Review of Systems CONSTITUTIONAL: Well-developed no acute respiratory distress. Denies fever, denies chills. EYES: No icterus sclerae, no conjunctivitis. EARS, NOSE, MOUTH, THROAT, and FACE: No sore throat, lymphadenopathy, carotid bruits or deformity. RESPIRATORY: Denies shortness of breath no cough wheezes. CARDIOVASCULAR: Positive PND with her new palpitation and angina. Denies chest pain. GASTROINTESTINAL: No Abd pain, Nausea or vomiting, no Diarrhea or constipation, No GI Bleed, no distention or masses. GENITOURINARY: Negative for Hematuria or UTI, no kidney stones. Mild urinary retention. INTEGUMENT/BREAST: Negative for any muscular injury with mild osteoarthritis. No change. HEMATOLOGIC/LYMPHATIC: Negative for bleed or purpura. MUSCULOSKELTAL: Negative for Myalgia or arthralgia. NEURLOGICAL: Significant weakness the left side compared to the right side mild slurred speech severe abnormal balance and gait and decreased mobility. BEHAVIORAL/PSYCH: Negative. ENDOCRINE: Hyperglycemic. Physical examination General Appearance: Alert, cooperative, no distress, morbidly obese, resting in bed and appears comfortable. Neck HEENT: Supple, no lymphadenopathy, no thyroid enlargement, no carotid bruits. Lungs: Breath sounds are clear to auscultation. No wheezing, no rhonchi, no intercostal retractions, accessory muscle usage.. Chest Wall: Decrease expansion with deep inspiration no tenderness and no deformity was found on exam, no costochondral pain or discomfort. Heart: Regular rate and rhythm, S1, S2 normal, no murmur, rub or gallop. Positive history positive JVD. Back: Symmetric, no curvature, ROM normal, no CVA tenderness. Abdomen: Soft, non-tender, bowel sounds active all four quadrants, no masses, no organomegaly. Extremities: Extremities normal, atraumatic, no cyanosis positive edema Pulses: 2+ and symmetric. Skin: Skin color, texture, tugor normal, no rashes or lesions. Neurologic: Alert oriented x3 cranial nerves II through XII intact, positive significant weakness in the left side compared to the right side. Assessment and Plan 1 chest pain and angina: known history of coronary artery disease seeing cardi ology regular basis, will admit patient, cardiology consult appreciated. Echocardiogram as above, continue heparin drip, heart catheterization today. 2 known history of atherosclerotic heart disease post angioplasty and stent placement past. 3 COPD: Continue patient on O2 along with updraft treatment with DuoNeb and if needed Pulmicort. 4 chronic pain syndrome: Has been on Lyrica 100 mg 3 times a day along with morphine sulfate 20 mg every 4 hours. 5 type 2 diabetes on insulin, uncontrolled with hyperglycemia. Continue Levemir 14 units daily at bedtime, NovoLog 3 units before meals meals on sliding scales coverage. Also still on Tradjenta 5 mg daily. Glucophage 1000 mg twice a day is on hold. 6 history of seizure: Has been doing well on Keppra 750 mg in the afternoon and 1500 mg a.m. and bedtime. 7 hyperlipidemia: Continue atorvastatin 20 mg daily. 8 recurrent depression: Has been on Depakote and Cymbalta. 9 history of seizure. Continue Keppra. 10 restless leg syndrome: Remain on Requip. 11 Mild hypotension: Still on midodrine 10 mg 3 times a day. 12 chronic neuropathy: Has been on Lyrica doing slightly better. 13 GI prophylaxis: Continue patient on Pepcid 20 mg twice a day. 14 DVT prophylaxis: Continue patient on knee-high FAYE hose and Venodyne boots. CODE STATUS: Full code. Discharge plan: Return to [facility] Wednesday Impression and plan of care have been directed as dictated by the signing physician. Eleonora Almeida nurse practitioner acting as scribe for signing physician. Objective - Vital Signs Vital signs: Vital Signs Temp 98.1 F 05/06/20 04:00 Pulse 80 05/06/20 04:00 Resp 20 05/06/20 04:00 BP 115/73 05/06/20 04:00 Pulse Ox 95 05/06/20 04:00 Intake & Output 05/05/20 05/06/20 05/06/20 18:59 06:59 18:59 Intake Total 866.066 1988.998 Output Total 0 Balance 558.260 9344.998 Weight 130.6 kg Intake: Intake, IV Titration 128.530 217.998 Amount Heparin Sod,Pork in 0.45% 128.530 217.998 NaCl 25,000 unit In 0.45 % NaCl 1 250ml.bag @ 7.87 UNITS/KG/HR 9.995 mls/hr IV .Q24H [facility] Rx#: [id number] Oral 800 984 Output: Urine 0 Other: Voiding Method Toilet # Voids 1 1 # Bowel Movements 1 - Labs CBC & Chem 7: 05/06/20 06:32 05/05/20 07:58 Labs: Abnormal Lab Results - Last 24 Hours (Table) 05/05/20 05/05/20 05/05/20 Range/Units 07:58 07:58 07:58 RBC 3.91 L (4.30-5.90) m/uL Hgb 11.0 L (13.0-17.5) gm/dL Hct 34.6 L (39.0-53.0) % APTT 32.9 H (22.0-30.0) sec Carbon Dioxide 31 H (22-30) mmol/L Creatinine 0.58 L (0.66-1.25) mg/dL Glucose 314 H (74-99) mg/dL POC Glucose (mg/dL) (75-99) mg/dL 05/05/20 05/05/20 05/05/20 Range/Units 12:47 17:02 17:25 RBC (4.30-5.90) m/uL Hgb (13.0-17.5) gm/dL Hct (39.0-53.0) % APTT 44.8 H (22.0-30.0) sec Carbon Dioxide (22-30) mmol/L Creatinine (0.66-1.25) mg/dL Glucose (74-99) mg/dL POC Glucose (mg/dL) 250 H 224 H (75-99) mg/dL 05/05/20 05/05/20 05/06/20 Range/Units 20:20 22:09 06:10 RBC (4.30-5.90) m/uL Hgb (13.0-17.5) gm/dL Hct (39.0-53.0) % APTT (22.0-30.0) sec Carbon Dioxide (22-30) mmol/L Creatinine (0.66-1.25) mg/dL Glucose (74-99) mg/dL POC Glucose (mg/dL) 257 H 244 H 226 H (75-99) mg/dL 08/17/20 08/17/20 08/17/20 Range/Units 06:32 06:32 07:44 RBC 3.92 L (4.30-5.90) m/uL Hgb 10.7 L (13.0-17.5) gm/dL Hct 34.5 L (39.0-53.0) % APTT 45.8 H (22.0-30.0) sec Carbon Dioxide (22-30) mmol/L Creatinine (0.66-1.25) mg/dL Glucose (74-99) mg/dL POC Glucose (mg/dL) 204 H (75-99) mg/dL
[2020-05-06] MEDS: METOPROLOL TARTRATE 25 MG TAB PO SCH ×2 (16:16→22:48)
[2020-05-06 17:25] LABS: Glucose,Whole Blood 318 mg/dL (75-99)
[2020-05-06] MEDS: SODIUM CHLORIDE 0.9% 1,000 ML IV SCH (17:35)
[2020-05-06] MEDS: traZODone HCL 50 MG TAB PO SCH (20:00)
[2020-05-06] MEDS: MELATONIN 5 MG TABLET PO SCH (20:02)
[2020-05-06] MEDS: MONTELUKAST 10 MG TAB PO SCH (20:02)
[2020-05-06 20:04] LABS: Glucose,Whole Blood 337 mg/dL (75-99)
[2020-05-06] MEDS: INSULIN DETEMIR (LEVEMIR) 100 UNIT/ML SYR SQ SCH (20:14)
[2020-05-06] MEDS ORDERED: ATORVASTATIN 80 MG TAB PO SCH (21:00)
[2020-05-07] MEDS: NITROGLYCERIN OINT 1 INCH/GM PACKET TOPICAL SCH ×2 (01:31→05:13)
[2020-05-07] MEDS: MORPHINE ORAL SOLN 10 MG/5 ML CUP PO PRN ×3 (01:33→09:33)
[2020-05-07] MEDS: SODIUM CHLORIDE 0.9% 1,000 ML IV SCH (01:34)
[2020-05-07 04:46] VITALS: RESP 18; TEMP 97.8
[2020-05-07] MEDS: PREGABALIN 100 MG CAP PO SCH (05:12)
[2020-05-07] MEDS: methocarbamoL 750 MG TAB PO SCH (05:12)
[2020-05-07 06:37] LABS: Glucose,Whole Blood 287 mg/dL (75-99)
[2020-05-07] MEDS: INSULIN ASPART (NovoLOG) 100 UNIT/ML VIAL SQ SCH ×2 (06:40→06:41)
[2020-05-07 07:16] LABS: Basophils % (A) 0 %; Eosinophils # (A) 0.1 k/uL (0-0.7); Eosinophils % (A) 2 %; HCT 34.1 % (39.0-53.0); HGB 10.3 gm/dL (13.0-17.5); Hypochromasia Slight; Lymphocytes # (A) 1.4 k/uL (1.0-4.8); Lymphocytes % (A) 26 %; MCH 26.9 pg (25.0-35.0); MCHC 30.2 g/dL (31.0-37.0); MCV 89.1 fL (80.0-100.0); Mean Platelet Volume 7.3; Monocytes # (A) 0.4 k/uL (0-1.0); Monocytes % (A) 7 %; Neutrophils # (A) 3.4 k/uL (1.3-7.7); Neutrophils % (A) 62 %; Platelet Count 156 k/uL (150-450); RBC 3.83 m/uL (4.30-5.90); RDW 14.5 % (11.5-15.5); WBC 5.6 k/uL (3.8-10.6)
--- NOTE | 2020-05-07 07:23 | P.DS ---
Providers Date of admission: 05/03/20 14:20 Expected date of discharge: 05/07/20 Attending physician: Cal Handy Consults: 05/03/20 14:20 Consult Physician Urgent Consulting Provider: Melva Pritchett Consult Reason/Comments: cp Do you want consulting provider notified?: Yes Primary care physician: [facility] Course: 54-year-old morbidly obese male from [facility] [place] the [place] who had previous history of CVA 3 left him with left-sided weakness significant decreased mobility, history of hypertension, diabetes, hyperlipidemia who is also known to have history of lung cancer post right middle lobe resection. Patient developed to have midsternal chest pain lasted for over an hour and half with severe associated with palpitation mild nausea and see if and shortness of breath developed to have mild numbness in the left arm area. Patient ended up being sent to demurs department at [facility] where was seen his first troponin was negative blood sugar was quite but elevated initially his EKG showed normal sinus rhythm with might new major abnormality. Chest x-ray shows mild early venous congestion with interstitial pneumonitis. Patient was admitted to the hospital for recurrent angina with known history of CAD post angioplasty and stent placement. 05/04: Patient is seen today while sitting in a wheelchair. He states he uses wheelchair to get to the bathroom. Cardiology has evaluated this morning with plan for heart catheterization on Wednesday. Diet will be started. radiation monitor has been a sinus rhythm. Repeat troponins of been negative. Blood sugars are running between 210 and 368. Patient complains of back pain. No chest pain at this time. He has been afebrile, heart rate 79, blood pressure 128/68, pulse ox 99% on room air. 05/05: Patient has been afebrile, heart rate 94, blood pressure 120/71, pulse ox 96% on room air. Repeat blood work revealed WBC 5.7, hemoglobin 11.0. BUN 17 and creatinine 0.58, potassium 4.4. Blood sugars are running in the 300s and scheduled NovoLog will be increased to 6 units. Patient denies any new complaints. Echocardiogram reveals EF of 55-60% with moderate concentric left ventricular hypertrophy, trace mitral regurgitation, trace tricuspid regurgitation. He is on a heparin drip and scheduled for heart catheterization tomorrow. 05/06: Patient is scheduled for heart catheterization today. Patient ended up sleeping in the recliner last night. No chest pain or shortness of breath at rest. Patient has been afebrile, heart rate 80, blood pressure 126/80, pulse ox 96% on room air. Repeat blood work reveals WBC 5.4, hemoglobin 10.7, platelet count 174. Blood sugars running between 204 and 244. Anticipate discharge back to [facility] tomorrow. 05/07: Patient underwent heart catheterizaiton yesterday with Dr. RAMESH Sotelo that revealed previously stented mid RCA is patent. Proximal RCA has a 40% and mid RCA off to the stented segment has another 40% lesion. PDA is large disease- free. P LV is small. Left main and circumflex are free of significant disease but the first obtuse marginal has a 60% narrowing and amount of myocardium beyond the stenosis is small. LAD is moderate to heavily calcified with no more than 40% diffuse areas of disease. Recommendations were for medical management and beta elijah was increased as well as atorvastatin was increased to 80 mg. Patient is currently chest pain-free and will be transferred back to [facility] today in stable condition. Discharge diagnoses 1 chest pain and angina: known history of coronary artery disease. 2 known history of atherosclerotic heart disease post angioplasty and stent placement past. 3 COPD. 4 chronic pain syndrome. 5 type 2 diabetes on insulin, uncontrolled with hyperglycemia. 6 history of seizure. 7 hyperlipidemia. 8 recurrent depression. 9 chronic neuropathy. 10 restless leg syndrome. 11 Mild hypotension. Discharge plan: Return to [facility] Wednesday under the care of Dr. Ortiz Impression and plan of care have been directed as dictated by the signing physician. Eleonora Almeida nurse practitioner acting as scribe for signing physician. Patient Condition at Discharge: Good Plan - Discharge Summary Discharge Rx Participant: No New Discharge Prescriptions: New Atorvastatin [Lipitor] 80 mg PO HS #0 tab Metoprolol Tartrate [Lopressor] 25 mg PO TID tab Nitroglycerin Sl Tabs [Nitrostat] 0.4 mg SUBLINGUAL Q5M PRN #0 tab PRN Reason: Chest Pain MORPHINE ORAL APOLLO 2mg/mL [Morphine Oral Soln 2 MG/ML] 20 mg PO Q4H PRN #90 ml PRN Reason: Pain Continue levETIRAcetam [Keppra] 750 mg PO DAILY@1400 Acetaminophen [Tylenol] 650 mg PO Q6H PRN PRN Reason: Pain Or Fever > 100.5 Insulin Glargine,Hum.rec.anlog [Basaglar Kwikpen U-100] 14 unit SQ HS@2100 Linagliptin [Tradjenta] 5 mg PO DAILY@0900 Midodrine HCl [ProAmatine] 10 mg PO TID@0900,1300,2100 PRN PRN Reason: VERTIGO, HOLD IF SBP > 170 rOPINIRole HCL [Requip] 3 mg PO TID@0600,1400,2200 Divalproex Sodium [Depakote] 500 mg PO TID@0900,1300,2100 DULoxetine HCL [Cymbalta] 60 mg PO BID@0900,2100 Ergocalciferol [Vitamin D2 (DRISDOL)] 50,000 units PO ANDERSON@0900 Montelukast [Singulair] 10 mg PO HS@2100 Sertraline [Zoloft] 50 mg PO DAILY@0900 Furosemide [Lasix] 20 mg PO DAILY@0900 Famotidine [Pepcid] 20 mg PO BID@0900,2100 Melatonin 10 mg PO HS@2100 Aspirin 81 mg PO DAILY@0900 Azelastine HCl 2 spray EA NOSTRIL BID PRN PRN Reason: Allergy Symptoms bisacodyL [Bisacodyl] 10 mg RECTAL DAILY PRN PRN Reason: Constipation guaiFENesin [Mucinex] 600 mg PO BID@0900,2100 Loperamide [Imodium] 2 mg PO DIRECTED Potassium Chloride [K-Tab ER] 20 meq PO DAILY@0900 predniSONE 10 mg PO DAILY@0600 PRN PRN Reason: INFLAMMATION X3DAYS Magnesium Hydroxide [Milk of Magnesia] 2,400 mg PO DAILY PRN PRN Reason: Constipation Methocarbamol [Robaxin-750] 750 mg PO DAILY@0600,1400,2200 Insulin Aspart [NovoLOG Flexpen] See Protocol SQ AC-TID PRN PRN Reason: HIGH BLOOD SUGAR Insulin Aspart [NovoLOG Flexpen] 3 units SQ AC-TID levETIRAcetam [Keppra] 1,500 mg PO BID@0900,2100 traZODone HCL [Desyrel] 75 mg PO HS@2100 Insulin NPH Human Isophane [NovoLIN N] 10 units SQ DAILY@0900 PRN PRN Reason: [id number], FOR STEROID ORDER Celecoxib [CeleBREX] 200 mg PO DAILY@0900 Clotrimazole/Betamethasone Dip [Lotrisone Cream] 1 applic TOPICAL BID PRN PRN Reason: FUNGAL INFECTION, ABDOM. FOLD fentaNYL 75MCG/HR PATCH [Duragesic 75MCG/HR] 75 mcg TRANSDERM Q72H #1 patch Pregabalin [Lyrica] 100 mg PO TID@0600,1300,2100 #9 cap metFORMIN HCL 1,000 mg PO BID@0800,1700 #0 Morphine Sul Solution 20mg/5ml 20 mg PO Q4H PRN #90 ml PRN Reason: Pain Discontinued Atorvastatin [Lipitor] 20 mg PO DIRECTED Metoprolol Tartrate [Lopressor] 12.5 mg PO BID@0900,2100 PRN PRN Reason: HOLD IF SBP IS LESS 110 Discharge Medication List levETIRAcetam [Keppra] 750 mg PO DAILY@1400 03/28/19 [History] Acetaminophen [Tylenol] 650 mg PO Q6H PRN 05/30/19 [History] Insulin Glargine,Hum.rec.anlog [Basaglar Lucianopen U-100] 14 unit SQ HS@209905/30/19 [History] Linagliptin [Tradjenta] 5 mg PO DAILY@0905/30/19 [History] Midodrine HCl [ProAmatine] 10 mg PO TID@0900,1300,2100 PRN 05/30/19 [History] rOPINIRole HCL [Requip] 3 mg PO TID@0600,1400,2200 05/30/19 [History] DULoxetine HCL [Cymbalta] 60 mg PO BID@0900,209907/21/19 [History] Divalproex Sodium [Depakote] 500 mg PO TID@0900,1300,209907/21/19 [History] Ergocalciferol [Vitamin D2 (DRISDOL)] 50,000 units PO ANDERSON@0907/21/19 [History] Montelukast [Singulair] 10 mg PO HS@209907/21/19 [History] Sertraline [Zoloft] 50 mg PO DAILY@0900 07/21/19 [History] Famotidine [Pepcid] 20 mg PO BID@0900,2100 11/20/19 [History] Furosemide [Lasix] 20 mg PO DAILY@89911/20/19 [History] Melatonin 10 mg PO HS@209911/20/19 [History] Aspirin 81 mg PO DAILY@89902/12/20 [History] Azelastine HCl 2 spray EA NOSTRIL BID PRN 02/12/20 [History] Loperamide [Imodium] 2 mg PO DIRECTED 02/12/20 [History] Potassium Chloride [K-Tab ER] 20 meq PO DAILY@0902/12/20 [History] bisacodyL [Bisacodyl] 10 mg RECTAL DAILY PRN 02/12/20 [History] guaiFENesin [Mucinex] 600 mg PO BID@899,209902/12/20 [History] Celecoxib [CeleBREX] 200 mg PO DAILY@89905/03/20 [History] Clotrimazole/Betamethasone Dip [Lotrisone Cream] 1 applic TOPICAL BID PRN 05/03/20 [History] Insulin Aspart [NovoLOG Flexpen] 3 units SQ AC-TID 05/03/20 [History] Insulin Aspart [NovoLOG Flexpen] See Protocol SQ AC-TID PRN 05/03/20 [History] Insulin NPH Human Isophane [NovoLIN N] 10 units SQ DAILY@09 PRN 05/03/20 [History] Magnesium Hydroxide [Milk of Magnesia] 2,400 mg PO DAILY PRN 05/03/20 [History] Methocarbamol [Robaxin-750] 750 mg PO DAILY@0600,1400,2200 05/03/20 [History] levETIRAcetam [Keppra] 1,500 mg PO BID@899,209905/03/20 [History] predniSONE 10 mg PO DAILY@0600 PRN 05/03/20 [History] traZODone HCL [Desyrel] 75 mg PO HS@209905/03/20 [History] Atorvastatin [Lipitor] 80 mg PO HS #0 tab 05/07/20 [Rx] MORPHINE ORAL APOLLO 2mg/mL [Morphine Oral Soln 2 MG/ML] 20 mg PO Q4H PRN #90 ml 05/07/20 [Rx] Metoprolol Tartrate [Lopressor] 25 mg PO TID tab 05/07/20 [Rx] Morphine Sul Solution 20mg/5ml 20 mg PO Q4H PRN #90 ml 05/07/20 [Rx] Nitroglycerin Sl Tabs [Nitrostat] 0.4 mg SUBLINGUAL Q5M PRN #0 tab 05/07/20 [Rx] Pregabalin [Lyrica] 100 mg PO TID@0600,1300,2100 #9 cap 05/07/20 [Rx] fentaNYL 75MCG/HR PATCH [Duragesic 75MCG/HR] 75 mcg TRANSDERM Q72H #1 patch 05/07/20 [Rx] metFORMIN HCL 1,000 mg PO BID@0800,1700 #0 05/07/20 [Rx] Follow up Appointment(s)/Referral(s): Radha Ortiz MD [Primary Care Provider] - 1 Week (at [facility]) [facility] [Provider Group] - 1 Week Activity/Diet/Wound Care/Special Instructions: [facility] Pt will need COVID test within 72hrs of dc Discharge Disposition: TRANSFER TO SNF/ECF
[2020-05-07] MEDS: FUROSEMIDE 20 MG TAB PO SCH (09:34)
[2020-05-07] MEDS: DULoxetine HCL 60 MG CAPSULE.DR PO SCH (09:34)
[2020-05-07] MEDS: DIVALPROEX 500 MG TABLET.DR PO SCH (09:35)
[2020-05-07] MEDS: LINAGLIPTIN 5 MG TABLET PO SCH (09:35)
[2020-05-07] MEDS: POTASSIUM CHLORIDE ER 20 MEQ TAB.ER PO SCH (09:35)
[2020-05-07] MEDS: SERTRALINE 50 MG TAB PO SCH (09:35)
[2020-05-07] MEDS: guaiFENesin 600 MG TABLET.ER PO SCH (09:35)
[2020-05-07] MEDS: METOPROLOL TARTRATE 25 MG TAB PO SCH (09:35)
[2020-05-07] MEDS: HEPARIN SOD,PORK IN 0.45% NACL 25,000 UNIT in 0.45% NACL 1 250ML.BAG IV SCH (09:37)
[2020-05-07 10:16] VITALS: BP 127/77; PULSE 76
--- NOTE | 2020-05-07 10:51 | P.PN ---
Subjective Progress Note Date: 05/07/20 CHIEF COMPLAINT: Chest pain HISTORY OF PRESENT ILLNESS: Patient examined this morning at the bedside. He underwent a cardiac catheterization yesterday with Dr. Sotelo. Medical management was recommended with increase in beta elijah and increasing his statin dosing. Patient denies chest pain. Denies shortness of breath. He is anxious to be discharged home. PHYSICAL EXAM: VITAL SIGNS: Reviewed. GENERAL: Well-developed in no acute distress. NECK: Supple. No JVD or thyromegaly LUNGS: Respirations even and unlabored. Lungs essentially clear to auscultation bilaterally. HEART: Regular rate and rhythm. S1 and S2 heard. EXTREMITIES: Normal range of motion. No clubbing or cyanosis. Peripheral pulses intact. No lower extremity edema ASSESSMENT: 1. Chest pain, status post cardiac catheterization 2. History of coronary artery disease 3. History of CVA 4. Hyperlipidemia 5. Hypertension 6. Diabetes mellitus PLAN: -Patient is stable for discharge home today. He is to follow up on an outpatient basis. Nurse practitioner note has been reviewed by physician. Signing provider agrees with the documented findings, assessment, and plan of care. Objective - Vital Signs Vital signs: Vital Signs Temp 97.8 F 05/07/20 04:00 Pulse 70 05/07/20 04:00 Resp 18 05/07/20 04:00 BP 139/83 05/07/20 04:00 Pulse Ox 93 L 05/07/20 04:00 Intake & Output 05/06/20 05/07/20 05/07/20 18:59 06:59 18:59 Intake Total 436 100 Output Total 500 Balance 436 -400 Weight 132.2 kg Intake: IV 200 Intake, IV Titration 100 Amount Sodium Chloride 0.9% 1, 100 000 ml @ 100 mls/hr IV . Q10H SILVINO Rx#:[id number] Oral 236 Output: Urine 500 Other: Voiding Method Toilet Toilet # Bowel Movements 1 - Labs CBC & Chem 7: 05/07/20 06:39 05/05/20 07:58 Labs: Abnormal Lab Results - Last 24 Hours (Table) 05/06/20 05/06/20 05/06/20 Range/Units 12:43 17:23 20:03 RBC (4.30-5.90) m/uL Hgb (13.0-17.5) gm/dL Hct (39.0-53.0) % MCHC (31.0-37.0) g/dL POC Glucose (mg/dL) 112 H 318 H 337 H (75-99) mg/dL 05/07/20 05/07/20 Range/Units 06:35 06:39 RBC 3.83 L (4.30-5.90) m/uL Hgb 10.3 L (13.0-17.5) gm/dL Hct 34.1 L (39.0-53.0) % MCHC 30.2 L (31.0-37.0) g/dL POC Glucose (mg/dL) 287 H (75-99) mg/dL
[2020-05-16] MEDS ORDERED: ATORVASTATIN 20 MG TAB PO SCH (21:00)
[2020-05-16] MEDS ORDERED: ATORVASTATIN 40 MG TAB PO SCH (21:00)
== END 2020-05-07 11:13 | DRG 287 ==
LOC: EC 12:06 → 3NCARDOBS 14:20 → 3SCARD 18:12 → 3NCARDOBS 20:26 → 3SCARD 21:07 → OBSVTOIN 05-04 11:28
PROVIDERS: ADMIT Internal Medicine Geriatric Medicine; ATTEND Internal Medicine Geriatric Medicine
PROC: 4A023N7 Measurement of Cardiac Sampling and Pressure, Left Heart, Percutaneous Approach (ICD-10-PCS; principal; 2020-05-06 08:20)
PROC: B2111ZZ Fluoroscopy of Multiple Coronary Arteries using Low Osmolar Contrast (ICD-10-PCS; principal; 2020-05-06 08:20)
DX: I25.119 Atherosclerotic heart disease of native coronary artery with unspecified angina pectoris (principal); F33.9 Major depressive disorder, recurrent, unspecified; I69.354 Hemiplegia and hemiparesis following cerebral infarction affecting left non-dominant side; G89.4 Chronic pain syndrome; G40.909 Epilepsy, unspecified, not intractable, without status epilepticus; G25.81 Restless legs syndrome; E78.5 Hyperlipidemia, unspecified; E66.01 Morbid (severe) obesity due to excess calories; J44.9 Chronic obstructive pulmonary disease, unspecified; K21.9 Gastro-esophageal reflux disease without esophagitis; E11.9 Type 2 diabetes mellitus without complications; G47.30 Sleep apnea, unspecified; R26.9 Unspecified abnormalities of gait and mobility; G62.9 Polyneuropathy, unspecified; I10 Essential (primary) hypertension; I95.9 Hypotension, unspecified; J84.89 Other specified interstitial pulmonary diseases; I25.2 Old myocardial infarction; Z79.4 Long term (current) use of insulin; Z79.1 Long term (current) use of non-steroidal anti-inflammatories (NSAID); Z79.82 Long term (current) use of aspirin; Z79.899 Other long term (current) drug therapy; Z88.8 Allergy status to other drugs, medicaments and biological substances; Z82.49 Family history of ischemic heart disease and other diseases of the circulatory system; Z85.118 Personal history of other malignant neoplasm of bronchus and lung; Z95.5 Presence of coronary angioplasty implant and graft; Z87.891 Personal history of nicotine dependence; Z90.49 Acquired absence of other specified parts of digestive tract; Z98.890 Other specified postprocedural states; Z98.1 Arthrodesis status; Z82.0 Family history of epilepsy and other diseases of the nervous system
CPT/HCPCS: 36415; 71046; 80048; 80053; 80061; 83735; 83880; 84484; 85025; 85610; 85730; 93005; 93306; 99285

== ENCOUNTER → 2020-05-28 | Outpatient (CLI) | payer MEDICARE, OTHER | END | disposition home or self-care (01) | LOC: RADMRIMAIN 12:43 | PROVIDERS: ATTEND Family Medicine | DX: Z53.9 Procedure and treatment not carried out, unspecified reason (principal) ==

== ENCOUNTER 2020-09-06 14:10 | Emergency (ER) | payer MEDICARE, OTHER ==
[2020-09-06 14:30] VITALS: RESP 18
[2020-09-06 15:12] LABS: Appearance,Urine Clear (Clear); Bilirubin,Urine Negative (Negative); Blood,Urine Negative (Negative); Color,Urine Light Yellow; Glucose,Urine (UA) Negative (Negative); Ketones,Urine Negative (Negative); Leukocyte Esterase,Urine Negative (Negative); Nitrite,Urine Negative (Negative); PH, Urine 6.5 (5.0-8.0); Protein,Urine Negative (Negative); Specific Gravity,Urine 1.008 (1.001-1.035); Urobilinogen,Urine <2.0 mg/dL (<2.0)
--- NOTE | 2020-09-06 15:18 | ED ---
General Adult HPI - General Chief complaint: Recheck/Abnormal Lab/Rx Stated complaint: Mental Health Time Seen by Provider: 09/06/20 14:26 Source: patient, EMS Mode of arrival: EMS Limitations: no limitations - History of Present Illness Initial comments: Patient is a 54-year-old male, history of seizures, heart disease, diabetes, COPD, presenting to the emergency department from [facility] in [facility] for delusions. Patient was diagnosed with Covid 2 weeks ago, he states he is feeling better, no shortness of breath, no cough. He's had no fevers or chills. Patient states 6 days ago he got an infusion at his residence, he is unsure of the medicine, and he feels like since then he has been having delusions, hearing things that are not really happening. Patient is also complaining that he feels like his pain pump and his abdomen has moved. He denies any pain in his abdomen but is concerned of its location. He states he has chronic back pain, multiple lower back surgeries and hardware. He sees Dr. Parker, for the pain pump. Patient also takes morphine and fentanyl pain patch. He feels like his pain is unchanged. He states he has not been eating very much, he is trying to drink water. He denies any nausea or vomiting, no diarrhea. He denies any chest pain or shortness of breath. He denies any headaches, changes in vision. Patient denies being suicidal or homicidal. He has no further complaints at this time. - Related Data Home Medications Medication Instructions Recorded Confirmed levETIRAcetam [Keppra] 750 mg PO DAILY@1400 03/28/19 09/06/20 Acetaminophen [Tylenol] 650 mg PO Q6H PRN 05/30/19 09/06/20 Insulin Glargine,Hum.rec.anlog 40 unit SQ HS 05/30/19 09/06/20 [Basaglar Kwikpen U-100] Linagliptin [Tradjenta] 5 mg PO DAILY 05/30/19 09/06/20 Midodrine HCl [ProAmatine] 10 mg PO TID@0900,1300,2100 05/30/19 09/06/20 rOPINIRole HCL [Requip] 3 mg PO TID@0600,1400,2200 05/30/19 09/06/20 DULoxetine HCL [Cymbalta] 60 mg PO BID 07/21/19 09/06/20 Divalproex Sodium [Depakote] 500 mg PO TID@0900,1300,209907/21/19 09/06/20 Ergocalciferol [Vitamin D2 50,000 units PO ANDERSON 07/21/19 09/06/20 (DRISDOL)] Montelukast [Singulair] 10 mg PO HS 07/21/19 09/06/20 Famotidine [Pepcid] 20 mg PO BID 11/20/19 09/06/20 Melatonin 10 mg PO HS 11/20/19 09/06/20 Aspirin 81 mg PO DAILY 02/12/20 09/06/20 Azelastine HCl 2 spray EA NOSTRIL BID PRN 02/12/20 09/06/20 Potassium Chloride [K-Tab ER] 20 meq PO DAILY 02/12/20 09/06/20 bisacodyL [Bisacodyl] 10 mg RECTAL DAILY PRN 02/12/20 09/06/20 guaiFENesin [Mucinex] 600 mg PO BID 02/12/20 09/06/20 Insulin Aspart [NovoLOG Flexpen] 6 units SQ AC-TID 05/03/20 09/06/20 Insulin Aspart [NovoLOG Flexpen] See Protocol SQ AC-TID 05/03/20 09/06/20 Magnesium Hydroxide [Milk of 2,400 mg PO DAILY PRN 05/03/20 09/06/20 Magnesia] Methocarbamol [Robaxin-750] 750 mg PO DAILY@0600,1400,0 05/03/20 09/06/20 levETIRAcetam [Keppra] 1,500 mg PO BID@0900,2100 05/03/20 09/06/20 Dexamethasone 6 mg PO DAILY 09/06/20 09/06/20 Furosemide [Lasix] 40 mg PO BID@0900,1400 09/06/20 09/06/20 Metoprolol Tartrate [Lopressor] 25 mg PO TID@0600,1400,2200 09/06/20 09/06/20 Nystatin/Triamcin Cream [Mycolog 1 applic TOPICAL Q12H 09/06/20 09/06/20 100,000-0.1 Unit/gm-% Cream] Pregabalin [Lyrica] 225 mg PO BID 09/06/20 09/06/20 QUEtiapine FUMARATE [SEROquel] 25 mg PO AC-SUPPER@1700 09/06/20 09/06/20 cloNIDine HCL [Catapres] 0.1 mg PO TID PRN 09/06/20 09/06/20 fentaNYL 75MCG/HR PATCH [Duragesic 1 patch TRANSDERM Q72H 09/06/20 09/06/20 75MCG/HR] polyethylene glycoL 3350 [Miralax] 17 gm PO DAILY PRN 09/06/20 09/06/20 traZODone HCL 150 mg PO HS 09/06/20 09/06/20 Previous Rx's Medication Instructions Recorded Atorvastatin [Lipitor] 80 mg PO HS #0 tab 05/07/20 MORPHINE ORAL APOLLO 2mg/mL [Morphine 20 mg PO Q4H PRN #90 ml 05/07/20 Oral Soln 2 MG/ML] Nitroglycerin Sl Tabs [Nitrostat] 0.4 mg SUBLINGUAL Q5M PRN #0 tab 05/07/20 metFORMIN HCL 1,000 mg PO BID@0800,1700 #0 05/07/20 Allergies Allergy/AdvReac Type Severity Reaction Status Date / Time baclofen Allergy Unknown Verified 09/06/20 15:18 cyclobenzaprine Allergy Unknown Verified 09/06/20 15:18 [From Flexeril] Review of Systems ROS Statement: Those systems with pertinent positive or pertinent negative responses have been documented in the HPI. ROS Other: All systems not noted in ROS Statement are negative. Past Medical History Past Medical History: Coronary Artery Disease (CAD), Cancer, COPD, Diabetes Mellitus, GERD/Reflux, Hyperlipidemia, Hypertension, Myocardial Infarction (AK), Osteoarthritis (OA), Seizure Disorder, Sleep Apnea/CPAP/BIPAP Additional Past Medical History / Comment(s): LAST SEIZURE 2019; lumbar r adiculopathy; neuropathy; no CPAP needed per recent sleep study, hx. lung cancer Last Myocardial Infarction Date:: 10/22/10 History of Any Multi-Drug Resistant Organisms: None Reported Past Surgical History: Back Surgery, Cholecystectomy, Heart Catheterization With Stent Additional Past Surgical History / Comment(s): LAMINECTOMY ,fusion,spinal stimulator LEFT SHOULDER sx, 07-31-15 revison thoracic laminectomy t10- t11/removal of neuro stimulator and wires removed, fused L1&2 to a cage fusion that was previously put in to L3,4,5. May 27/2018. lobectomy of right middle lung Past Anesthesia/Blood Transfusion Reactions: No Reported Reaction Date of Last Stent Placement:: 10/22/10 Past Psychological History: Depression Smoking Status: Former smoker Past Alcohol Use History: None Reported Past Drug Use History: None Reported - Past Family History Brother(s) Family Medical History: Deep Vein Thrombosis (DVT) Mother Family Medical History: Osteoarthritis (OA) Additional Family Medical History / Comment(s): psoriases, Parkinsons Father Family Medical History: Coronary Artery Disease (CAD) Additional Family Medical History / Comment(s): heart problems- quad bypass, General Exam - General Exam Comments Initial Comments: GENERAL: Patient is well-developed and well-nourished. Patient is nontoxic and in no acute distress, appears anxious. HEAD: Atraumatic, normocephalic. EYES: Pupils equal round and reactive to light, extraocular movements intact, sclera anicteric, conjunctiva are normal. Eyelids were unremarkable. ENT: TMs normal, nares patent, oropharynx clear without exudates. Moist mucous membranes. NECK: Normal range of motion, supple without lymphadenopathy or JVD. LUNGS: Unlabored respirations. Breath sounds clear to auscultation bilaterally and equal. No wheezes rales or rhonchi. HEART: Regular rate and rhythm without murmurs, rubs or gallops. ABDOMEN: Soft, nontender, normoactive bowel sounds. No guarding, no rebound. No masses appreciated. Pain pump present on left side of abdomen. : Deferred MUSCULOSKELETAL: Normal extremities with adequate strength and normal range of motion. Mild bilateral lower leg edema, neurovascular intact bilaterally, sensation is equal in bilateral lower extremities. Main Line As[employer]er strength is equal bilaterally. No clubbing or cyanosis. NEUROLOGICAL: Patient is alert and oriented x 3. Motor and sensory are also intact. Cranial nerves II through XII grossly intact. Symmetrical smile. Normal speech, normal gait. PSYCH: Normal mood, normal affect, patient seems anxious. SKIN: Warm, Dry, normal turgor. Patient had a mild erythematous rash on his left arm as well as over his pain pump placement on his left abdomen. This does not appear to be an infectious rash, it appears that he has been scratching at these areas. No other sores or rashes noted. Limitations: no limitations Course Vital Signs 09/06/20 09/06/20 09/06/20 14:21 15:54 18:33 Temperature 98.7 F 98.3 F 98.6 F Pulse Rate 68 73 82 Respiratory 18 18 18 Rate Blood Pressure 148/102 167/90 163/95 O2 Sat by Pulse 95 97 95 Oximetry Medical Decision Making - Medical Decision Making Patient is a 54-year-old male sent in from [facility] on the [facility] for delusions. He is complaining that his pain pump is moving. Labs are stable, mild white count of 15.0, patient states he did take some recent steroids. Kidney function is stable, lactic acid is normal. Urine shows no evidence of infection. CRP is less than 5. Urine tox is positive for opiates, nothing else. Chest x-ray looks stable. I also did a lumbar x-ray to check for placement of his pain pump in the leads appear to be of the L3-L4 level which is normal. I discussed these findings with the patient. Patient was cleared for EPS evaluation. Patient was evaluated by Cristina. He is stable for discharge. We believe that he may have made up these "delusions" to be brought to the hospital. He is not suicidal or homicidal. He is stable to be discharged home. He will continue with his already prescribed medications at home. Patient is in agreement with this plan of care. Return parameters were discussed with the patient he verbalizes understanding. - Lab Data Result diagrams: 09/06/20 15:00 09/06/20 15:00 Lab Results 09/06/20 09/06/20 09/06/20 Range/Units 15:00 15:00 15:00 WBC 15.0 H (3.8-10.6) k/uL RBC 4.90 (4.30-5.90) m/uL Hgb 14.0 (13.0-17.5) gm/dL Hct 41.6 (39.0-53.0) % MCV 84.9 (80.0-100.0) fL MCH 28.6 (25.0-35.0) pg MCHC 33.7 (31.0-37.0) g/dL RDW 14.3 (11.5-15.5) % Plt Count 332 (150-450) k/uL MPV 7.6 Neutrophils % 70 % Lymphocytes % 20 % Monocytes % 7 % Eosinophils % 0 % Basophils % 1 % Neutrophils # 10.5 H (1.3-7.7) k/uL Lymphocytes # 3.0 (1.0-4.8) k/uL Monocytes # 1.1 H (0-1.0) k/uL Eosinophils # 0.0 (0-0.7) k/uL Basophils # 0.2 (0-0.2) k/uL Sodium 140 (137-145) mmol/L Potassium 4.3 (3.5-5.1) mmol/L Chloride 96 L (98-107) mmol/L Carbon Dioxide 36 H (22-30) mmol/L Anion Gap 8 mmol/L BUN 30 H (9-20) mg/dL Creatinine 0.77 (0.66-1.25) mg/dL Est GFR (CKD-EPI)AfAm >90 (>60 ml/min/1.73 sqM) Est GFR (CKD-EPI)NonAf >90 (>60 ml/min/1.73 sqM) Glucose 151 H (74-99) mg/dL Plasma Lactic Acid Francois (0.7-2.0) mmol/L Calcium 9.6 (8.4-10.2) mg/dL Total Bilirubin 0.7 (0.2-1.3) mg/dL AST 25 (17-59) U/L ALT 20 (4-49) U/L Alkaline Phosphatase 66 (38-126) U/L C-Reactive Protein <5.0 (<10.0) mg/L Total Protein 7.2 (6.3-8.2) g/dL Albumin 4.3 (3.5-5.0) g/dL Urine Color Light Yellow Urine Appearance Clear (Clear) Urine pH 6.5 (5.0-8.0) Ur Specific Oto 1.008 (1.001-1.035) Urine Protein Negative (Negative) Urine Glucose (UA) Negative (Negative) Urine Ketones Negative (Negative) Urine Blood Negative (Negative) Urine Nitrite Negative (Negative) Urine Bilirubin Negative (Negative) Urine Urobilinogen <2.0 (<2.0) mg/dL Ur Leukocyte Esterase Negative (Negative) Urine Opiates Screen Detected H (NotDetected) Ur Oxycodone Screen Not Detected (NotDetected) Urine Methadone Screen Not Detected (NotDetected) Ur Propoxyphene Screen Not Detected (NotDetected) Ur Barbiturates Screen Not Detected (NotDetected) U Tricyclic Antidepress Not Detected (NotDetected) Ur Phencyclidine Scrn Not Detected (NotDetected) Ur Amphetamines Screen Not Detected (NotDetected) U Methamphetamines Scrn Not Detected (NotDetected) U Benzodiazepines Scrn Not Detected (NotDetected) Urine Cocaine Screen Not Detected (NotDetected) U Marijuana (THC) Screen Not Detected (NotDetected) 09/06/20 Range/Units 15:00 WBC (3.8-10.6) k/uL RBC (4.30-5.90) m/uL Hgb (13.0-17.5) gm/dL Hct (39.0-53.0) % MCV (80.0-100.0) fL MCH (25.0-35.0) pg MCHC (31.0-37.0) g/dL RDW (11.5-15.5) % Plt Count (150-450) k/uL MPV Neutrophils % % Lymphocytes % % Monocytes % % Eosinophils % % Basophils % % Neutrophils # (1.3-7.7) k/uL Lymphocytes # (1.0-4.8) k/uL Monocytes # (0-1.0) k/uL Eosinophils # (0-0.7) k/uL Basophils # (0-0.2) k/uL Sodium (137-145) mmol/L Potassium (3.5-5.1) mmol/L Chloride (98-107) mmol/L Carbon Dioxide (22-30) mmol/L Anion Gap mmol/L BUN (9-20) mg/dL Creatinine (0.66-1.25) mg/dL Est GFR (CKD-EPI)AfAm (>60 ml/min/1.73 sqM) Est GFR (CKD-EPI)NonAf (>60 ml/min/1.73 sqM) Glucose (74-99) mg/dL Plasma Lactic Acid Francois 2.0 (0.7-2.0) mmol/L Calcium (8.4-10.2) mg/dL Total Bilirubin (0.2-1.3) mg/dL AST (17-59) U/L ALT (4-49) U/L Alkaline Phosphatase (38-126) U/L C-Reactive Protein (<10.0) mg/L Total Protein (6.3-8.2) g/dL Albumin (3.5-5.0) g/dL Urine Color Urine Appearance (Clear) Urine pH (5.0-8.0) Ur Specific Oto (1.001-1.035) Urine Protein (Negative) Urine Glucose (UA) (Negative) Urine Ketones (Negative) Urine Blood (Negative) Urine Nitrite (Negative) Urine Bilirubin (Negative) Urine Urobilinogen (<2.0) mg/dL Ur Leukocyte Esterase (Negative) Urine Opiates Screen (NotDetected) Ur Oxycodone Screen (NotDetected) Urine Methadone Screen (NotDetected) Ur Propoxyphene Screen (NotDetected) Ur Barbiturates Screen (NotDetected) U Tricyclic Antidepress (NotDetected) Ur Phencyclidine Scrn (NotDetected) Ur Amphetamines Screen (NotDetected) U Methamphetamines Scrn (NotDetected) U Benzodiazepines Scrn (NotDetected) Urine Cocaine Screen (NotDetected) U Marijuana (THC) Screen (NotDetected) Disposition Clinical Impression: Chronic pain, Hearing voices, Rash Disposition: HOME SELF-CARE Condition: Stable Instructions (If sedation given, give patient instructions): Chronic Pain (ED) Additional Instructions: Please return to the Emergency Department if symptoms worsen or any other concerns. Workup today is stable, no acute process. X-ray confirms pain pump placement. Please follow up with Dr. Parker for further concerns. Is patient prescribed a controlled substance at d/c from ED?: No Referrals: Radha Ortiz MD [Primary Care Provider] - 1-2 days
[2020-09-06 15:20] LABS: Basophils # (A) 0.2 k/uL (0-0.2); Basophils % (A) 1 %; Eosinophils % (A) 0 %; HCT 41.6 % (39.0-53.0); Lymphocytes % (A) 20 %; MCH 28.6 pg (25.0-35.0); MCHC 33.7 g/dL (31.0-37.0); MCV 84.9 fL (80.0-100.0); Mean Platelet Volume 7.6; Monocytes # (A) 1.1 k/uL (0-1.0); Monocytes % (A) 7 %; Neutrophils # (A) 10.5 k/uL (1.3-7.7); Neutrophils % (A) 70 %; Platelet Count 332 k/uL (150-450); RDW 14.3 % (11.5-15.5)
[2020-09-06 15:21] LABS: Amphetamine Screen,Urine Not Detected (NotDetected); Benzodiazepines Screen,Urine Not Detected (NotDetected); Cocaine Screen,Urine Not Detected (NotDetected); Opiate Screen,Urine Detected (NotDetected); Phencyclidine Screen,Urine Not Detected (NotDetected); Tricyclic Antidepressant,Urine Not Detected (NotDetected); Urn Cannabinoid Scrn Not Detected (NotDetected)
[2020-09-06 15:22] LABS: Barbiturate Screen,Urine Not Detected (NotDetected); Methadone Screen, Urine Not Detected (NotDetected); Oxycodone Screen, Urine Not Detected (NotDetected)
[2020-09-06 15:27] LABS: ALT 20 U/L (4-49); AST 25 U/L (17-59); African American GFR (CKD) >90 (>60 ml/min/1.73 sqM); Albumin 4.3 g/dL (3.5-5.0); Alkaline Phosphatase 66 U/L (38-126); Anion Gap 8 mmol/L; Blood Urea Nitrogen 30 mg/dL (9-20); C Reactive Protein <5.0 mg/L (<10.0); Calcium 9.6 mg/dL (8.4-10.2); Carbon Dioxide 36 mmol/L (22-30); Chloride 96 mmol/L (98-107); Glucose 151 mg/dL (74-99); Non-African American GFR(CKD) >90 (>60 ml/min/1.73 sqM); Potassium 4.3 mmol/L (3.5-5.1); Sodium 140 mmol/L (137-145); Total Bilirubin 0.7 mg/dL (0.2-1.3); Total Protein 7.2 g/dL (6.3-8.2)
--- NOTE | 2020-09-06 16:10 | XR ---
EXAMINATION TYPE: XR chest 2V DATE OF EXAM: 09/06/2020 COMPARISON: 05/03/2020 HISTORY: Shortness of breath TECHNIQUE: Frontal and lateral views of the chest are obtained. FINDINGS: Scattered senescent parenchymal changes noted. Hyperinflation compatible with COPD. No focal consolidation at this time. Improved interstitial prominence relative to the prior study. Heart size is stable. Mediastinal structures are stable and grossly unremarkable. No evidence for hilar prominence. Degenerative changes dorsal spine. IMPRESSION: 1. No focal consolidation at this time. Improved interstitial prominence relative to the prior study.
--- NOTE | 2020-09-06 16:17 | XR ---
EXAMINATION TYPE: XR lumbar spine 2 or 3V DATE OF EXAM: 09/06/2020 CLINICAL HISTORY: lead placement for pain pump TECHNIQUE: Three views of the lumbar spine are submitted. COMPARISON: None. FINDINGS: There are 5 lumbar type vertebral bodies identified. The lead for the pain pump is at the approximat e L3-4 level. The lumbar spine shows satisfactory alignment without evidence of acute fracture or dis location. Decompressive laminectomy changes of fusion L3-L5 S1. Multilevel degenerative disc disease. IMPRESSION: No acute fracture or dislocation is seen in the lumbar spine. ICD 10 NO FRACTURE, INITIAL EVALUATION
[2020-09-06] MEDS ORDERED: methylPREDNISolone SOD SUCCI 125 MG/2 ML VIAL IV STA (18:13)
[2020-09-06 18:34] VITALS: BP 163/95; PULSE 82; TEMP 98.6
[2020-09-06] MEDS ORDERED: MORPHINE SULFATE 4 MG/ML SYRINGE IVP STA (18:38)
== END 2020-09-06 20:33 | disposition home or self-care (01) ==
LOC: EC 14:10
DX: G89.29 Other chronic pain (principal); R44.0 Auditory hallucinations; R21 Rash and other nonspecific skin eruption; I10 Essential (primary) hypertension; E11.40 Type 2 diabetes mellitus with diabetic neuropathy, unspecified; J44.9 Chronic obstructive pulmonary disease, unspecified; K21.9 Gastro-esophageal reflux disease without esophagitis; M19.90 Unspecified osteoarthritis, unspecified site; G47.30 Sleep apnea, unspecified; G40.909 Epilepsy, unspecified, not intractable, without status epilepticus; F32.9 Major depressive disorder, single episode, unspecified; I25.2 Old myocardial infarction; Z79.4 Long term (current) use of insulin; Z79.51 Long term (current) use of inhaled steroids; Z79.890 Hormone replacement therapy; Z79.899 Other long term (current) drug therapy; Z79.82 Long term (current) use of aspirin; Z79.891 Long term (current) use of opiate analgesic; Z88.8 Allergy status to other drugs, medicaments and biological substances; Z85.118 Personal history of other malignant neoplasm of bronchus and lung; Z99.89 Dependence on other enabling machines and devices; Z87.891 Personal history of nicotine dependence
CPT/HCPCS: 36415; 80053; 83605; 85025; 86140; 81003; 80306; 72100; 71046; 99285; 96374; J2930

== ENCOUNTER 2020-09-27 10:56 | Inpatient (IN) | payer MEDICARE, OTHER ==
[2020-09-27 11:40] LABS: Glucose,Whole Blood 99 mg/dL (75-99)
[2020-09-27] MEDS ORDERED: ACETAMINOPHEN TAB 500 MG TAB PO STA (12:00)
[2020-09-27] MEDS ORDERED: IBUPROFEN IV 600 MG in SODIUM CHLORIDE 0.9% 250 ML IV STA (12:00)
--- NOTE | 2020-09-27 12:05 | ED ---
General Adult HPI - General Chief complaint: Urogenital Stated complaint: Weakness Time Seen by Provider: 09/27/20 11:05 Source: patient, EMS, RN notes reviewed, old records reviewed Mode of arrival: EMS Limitations: altered mental status - History of Present Illness Initial comments: This is a 54-year-old male who presents to the emergency department who has dementia. He was sent in because he is weak has a fever has a history of UTIs and is weaker than his baseline according to the staff. Patient is unable to give any history does not know why they sent him in here. No other history is available this time no one came with the patient. - Related Data Home Medications Medication Instructions Recorded Confirmed levETIRAcetam [Keppra] 750 mg PO DAILY@1400 03/28/19 09/27/20 Acetaminophen [Tylenol] 650 mg PO Q6H PRN 05/30/19 09/27/20 Insulin Glargine,Hum.rec.anlog 30 unit SQ HS 05/30/19 09/27/20 [Dennis Osorio U-100] Linagliptin [Tradjenta] 5 mg PO DAILY 05/30/19 09/27/20 Midodrine HCl [ProAmatine] 10 mg PO TID@0900,1300,1800 05/30/19 09/27/20 rOPINIRole HCL [Requip] 3 mg PO TID@0600,1400,2200 05/30/19 09/27/20 DULoxetine HCL [Cymbalta] 60 mg PO BID 07/21/19 09/27/20 Divalproex Sodium [Depakote] 500 mg PO TID@0900,1300,2100 07/21/19 09/27/20 Ergocalciferol [Vitamin D2 50,000 units PO ANDERSON 07/21/19 09/27/20 (DRISDOL)] Montelukast [Singulair] 10 mg PO HS 07/21/19 09/27/20 Famotidine [Pepcid] 20 mg PO BID 11/20/19 09/27/20 Melatonin 10 mg PO HS 11/20/19 09/27/20 Aspirin 81 mg PO DAILY 02/12/20 09/27/20 Azelastine HCl 2 spray EA NOSTRIL BID PRN 02/12/20 09/27/20 Potassium Chloride [K-Tab ER] 20 meq PO DAILY 02/12/20 09/27/20 bisacodyL [Bisacodyl] 10 mg RECTAL DAILY PRN 02/12/20 09/27/20 guaiFENesin [Mucinex] 600 mg PO BID 02/12/20 09/27/20 Insulin Aspart [NovoLOG Flexpen] 6 units SQ AC-TID 05/03/20 09/27/20 Insulin Aspart [NovoLOG Flexpen] See Protocol SQ AC-TID 05/03/20 09/27/20 Magnesium Hydroxide [Milk of 2,400 mg PO DAILY PRN 05/03/20 09/27/20 Magnesia] Methocarbamol [Robaxin-750] 750 mg PO BID@0900,1700 05/03/20 09/27/20 levETIRAcetam [Keppra] 1,500 mg PO BID@0900,2100 05/03/20 09/27/20 Furosemide [Lasix] 40 mg PO BID@0900,1400 09/06/20 09/27/20 Metoprolol Tartrate [Lopressor] 25 mg PO TID@0600,1400,2200 09/06/20 09/27/20 Pregabalin [Lyrica] 225 mg PO BID 09/06/20 09/27/20 QUEtiapine FUMARATE [SEROquel] 12.5 mg PO AC-SUPPER@1700 09/06/20 09/27/20 cloNIDine HCL [Catapres] 0.1 mg PO TID PRN 09/06/20 09/27/20 fentaNYL 75MCG/HR PATCH [Duragesic 1 patch TRANSDERM Q72H 09/06/20 09/27/20 75MCG/HR] polyethylene glycoL 3350 [Miralax] 17 gm PO DAILY PRN 09/06/20 09/27/20 traZODone HCL 150 mg PO HS 09/06/20 09/27/20 Cefuroxime [Ceftin] 250 mg PO BID 09/27/20 09/27/20 Previous Rx's Medication Instructions Recorded Atorvastatin [Lipitor] 80 mg PO HS #0 tab 05/07/20 MORPHINE ORAL APOLLO 2mg/mL [Morphine 20 mg PO Q4H PRN #90 ml 05/07/20 Oral Soln 2 MG/ML] Nitroglycerin Sl Tabs [Nitrostat] 0.4 mg SUBLINGUAL Q5M PRN #0 tab 05/07/20 metFORMIN HCL 1,000 mg PO BID@0800,1700 #0 05/07/20 Allergies Allergy/AdvReac Type Severity Reaction Status Date / Time baclofen Allergy Unknown Verified 09/27/20 13:50 cyclobenzaprine Allergy Unknown Verified 09/27/20 13:50 [From Flexeril] Review of Systems ROS Statement: Those systems with pertinent positive or pertinent negative responses have been documented in the HPI. ROS Other: All systems not noted in ROS Statement are negative. Past Medical History Past Medical History: Coronary Artery Disease (CAD), Cancer, COPD, Diabetes Mellitus, GERD/Reflux, Hyperlipidemia, Hypertension, Myocardial Infarction ([place]), Osteoarthritis (OA), Seizure Disorder, Sleep Apnea/CPAP/BIPAP Additional Past Medical History / Comment(s): LAST SEIZURE 2018; lumbar radiculopathy; neuropathy; no CPAP needed per recent sleep study, hx. lung cancer Last Myocardial Infarction Date:: 10/22/10 History of Any Multi-Drug Resistant Organisms: None Reported Past Surgical History: Back Surgery, Cholecystectomy, Heart Catheterization With Stent Additional Past Surgical History / Comment(s): LAMINECTOMY ,fusion,spinal stimulator LEFT SHOULDER sx, 07-31-15 revison thoracic laminectomy t10- t11/removal of neuro stimulator and wires removed, fused L1&2 to a cage fusion that was previously put in to L3,4,5. May 27/2018. lobectomy of right middle lung Past Anesthesia/Blood Transfusion Reactions: No Reported Reaction Date of Last Stent Placement:: 10/22/10 Past Psychological History: Depression Smoking Status: Former smoker Past Alcohol Use History: None Reported Past Drug Use History: None Reported - Past Family History Brother(s) Family Medical History: Deep Vein Thrombosis (DVT) Mother Family Medical History: Osteoarthritis (OA) Additional Family Medical History / Comment(s): psoriases, Parkinsons Father Family Medical History: Coronary Artery Disease (CAD) Additional Family Medical History / Comment(s): heart problems- quad bypass, General Exam - General Exam Comments Initial Comments: GENERAL: Patient is well-developed and well-nourished. Patient is nontoxic and well- hydrated and is in no acute distress. ENT: Neck is soft and supple. No significant lymphadenopathy is noted. Oropharynx is clear. Moist mucous membranes. Neck has full range of motion without e liciting any pain. EYES: The sclera were anicteric and conjunctiva were pink and moist. Extraocular movements were intact and pupils were equal round and reactive to light. Eyelids were unremarkable. PULMONARY: Unlabored respirations. Good breath sounds bilaterally. No audible rales rhonchi or wheezing was noted. CARDIOVASCULAR: There is a regular rate and rhythm without any murmurs gallops or rubs. ABDOMEN: Soft and nontender with normal bowel sounds. SKIN: Skin is clear with no lesions or rashes and otherwise unremarkable. NEUROLOGIC: Patient is alert and oriented x3. Cranial nerves II through XII are grossly intact. Motor and sensory are also intact. Normal speech, volume and content. Symmetrical smile. MUSCULOSKELETAL: Normal extremities with adequate strength and full range of motion. LYMPHATICS: No significant lymphadenopathy is noted PSYCHIATRIC: Normal psychiatric evaluation. Limitations: altered mental status Course Vital Signs 09/27/20 09/27/20 11:02 13:49 Temperature 101.7 F H 97.4 F L Pulse Rate 91 80 Respiratory 18 18 Rate Blood Pressure 133/84 91/57 O2 Sat by Pulse 95 97 Oximetry Medical Decision Making - Medical Decision Making EKG shows normal sinus rhythm at [address] interval is 140 QRS is 92 QT interval 368 QTC is 452. Patient's EKG shows no ST segment elevation or depression. Chest x-ray shows pneumonitis headache there is potential infiltrate in the left lower lobe this occurred at 2:15 PM. I spoke with Dr. Handy he agreed to admit the patient admitted the patient I wrote admitting orders Started the patient on Rocephin. - Lab Data Result diagrams: 09/27/20 12:03 09/27/20 12:03 Lab Results 09/27/20 09/27/20 09/27/20 Range/Units 11:28 12:03 12:03 WBC 5.3 (3.8-10.6) k/uL RBC 3.69 L (4.30-5.90) m/uL Hgb 10.7 L D (13.0-17.5) gm/dL Hct 30.8 L (39.0-53.0) % MCV 83.3 (80.0-100.0) fL MCH 28.9 (25.0-35.0) pg MCHC 34.7 (31.0-37.0) g/dL RDW 14.3 (11.5-15.5) % Plt Count 252 (150-450) k/uL MPV 7.7 Neutrophils % 62 % Lymphocytes % 18 % Monocytes % 14 % Eosinophils % 1 % Basophils % 1 % Neutrophils # 3.3 (1.3-7.7) k/uL Lymphocytes # 1.0 (1.0-4.8) k/uL Monocytes # 0.7 (0-1.0) k/uL Eosinophils # 0.0 (0-0.7) k/uL Basophils # 0.1 (0-0.2) k/uL PT 10.4 (9.0-12.0) sec INR 1.0 (<1.2) APTT 22.2 (22.0-30.0) sec Sodium (137-145) mmol/L Potassium (3.5-5.1) mmol/L Chloride (98-107) mmol/L Carbon Dioxide (22-30) mmol/L Anion Gap mmol/L BUN (9-20) mg/dL Creatinine (0.66-1.25) mg/dL Est GFR (CKD-EPI)AfAm (>60 ml/min/1.73 sqM) Est GFR (CKD-EPI)NonAf (>60 ml/min/1.73 sqM) Glucose (74-99) mg/dL POC Glucose (mg/dL) 99 (75-99) mg/dL POC Glu Vice President Sales ID Wan, Patricia Plasma Lactic Acid Francois (0.7-2.0) mmol/L Calcium (8.4-10.2) mg/dL Total Bilirubin (0.2-1.3) mg/dL AST (17-59) U/L ALT (4-49) U/L Alkaline Phosphatase (38-126) U/L Troponin I (0.000-0.034) ng/mL Total Protein (6.3-8.2) g/dL Albumin (3.5-5.0) g/dL Urine Color Urine Appearance (Clear) Urine pH (5.0-8.0) Ur Specific Jones (1.001-1.035) Urine Protein (Negative) Urine Glucose (UA) (Negative) Urine Ketones (Negative) Urine Blood (Negative) Urine Nitrite (Negative) Urine Bilirubin (Negative) Urine Urobilinogen (<2.0) mg/dL Ur Leukocyte Esterase (Negative) Urine RBC (0-5) /hpf Urine WBC (0-5) /hpf Ur Squamous Epith Cells (0-4) /hpf Urine Bacteria (None) /hpf Urine Mucus (None) /hpf Coronavirus (PCR) (Not Detectd) 09/27/20 09/27/20 09/27/20 Range/Units 12:03 12:03 12:03 WBC (3.8-10.6) k/uL RBC (4.30-5.90) m/uL Hgb (13.0-17.5) gm/dL Hct (39.0-53.0) % MCV (80.0-100.0) fL MCH (25.0-35.0) pg MCHC (31.0-37.0) g/dL RDW (11.5-15.5) % Plt Count (150-450) k/uL MPV Neutrophils % % Lymphocytes % % Monocytes % % Eosinophils % % Basophils % % Neutrophils # (1.3-7.7) k/uL Lymphocytes # (1.0-4.8) k/uL Monocytes # (0-1.0) k/uL Eosinophils # (0-0.7) k/uL Basophils # (0-0.2) k/uL PT (9.0-12.0) sec INR (<1.2) APTT (22.0-30.0) sec Sodium 134 L (137-145) mmol/L Potassium 3.2 L (3.5-5.1) mmol/L Chloride 93 L (98-107) mmol/L Carbon Dioxide 33 H (22-30) mmol/L Anion Gap 8 mmol/L BUN 25 H (9-20) mg/dL Creatinine 1.09 (0.66-1.25) mg/dL Est GFR (CKD-EPI)AfAm 88 (>60 ml/min/1.73 sqM) Est GFR (CKD-EPI)NonAf 76 (>60 ml/min/1.73 sqM) Glucose 94 (74-99) mg/dL POC Glucose (mg/dL) (75-99) mg/dL POC Glu Vice President Sales ID Plasma Lactic Acid Francois 1.5 (0.7-2.0) mmol/L Calcium 8.4 (8.4-10.2) mg/dL Total Bilirubin 1.0 (0.2-1.3) mg/dL AST 234 H (17-59) U/L ALT 70 H (4-49) U/L Alkaline Phosphatase 65 (38-126) U/L Troponin I <0.012 (0.000-0.034) ng/mL Total Protein 6.1 L (6.3-8.2) g/dL Albumin 3.2 L (3.5-5.0) g/dL Urine Color Urine Appearance (Clear) Urine pH (5.0-8.0) Ur Specific Jones (1.001-1.035) Urine Protein (Negative) Urine Glucose (UA) (Negative) Urine Ketones (Negative) Urine Blood (Negative) Urine Nitrite (Negative) Urine Bilirubin (Negative) Urine Urobilinogen (<2.0) mg/dL Ur Leukocyte Esterase (Negative) Urine RBC (0-5) /hpf Urine WBC (0-5) /hpf Ur Squamous Epith Cells (0-4) /hpf Urine Bacteria (None) /hpf Urine Mucus (None) /hpf Coronavirus (PCR) (Not Detectd) 09/27/20 09/27/20 09/27/20 Range/Units 12:58 13:05 13:19 WBC (3.8-10.6) k/uL RBC (4.30-5.90) m/uL Hgb (13.0-17.5) gm/dL Hct (39.0-53.0) % MCV (80.0-100.0) fL MCH (25.0-35.0) pg MCHC (31.0-37.0) g/dL RDW (11.5-15.5) % Plt Count (150-450) k/uL MPV Neutrophils % % Lymphocytes % % Monocytes % % Eosinophils % % Basophils % % Neutrophils # (1.3-7.7) k/uL Lymphocytes # (1.0-4.8) k/uL Monocytes # (0-1.0) k/uL Eosinophils # (0-0.7) k/uL Basophils # (0-0.2) k/uL PT (9.0-12.0) sec INR (<1.2) APTT (22.0-30.0) sec Sodium (137-145) mmol/L Potassium (3.5-5.1) mmol/L Chloride (98-107) mmol/L Carbon Dioxide (22-30) mmol/L Anion Gap mmol/L BUN (9-20) mg/dL Creatinine (0.66-1.25) mg/dL Est GFR (CKD-EPI)AfAm (>60 ml/min/1.73 sqM) Est GFR (CKD-EPI)NonAf (>60 ml/min/1.73 sqM) Glucose (74-99) mg/dL POC Glucose (mg/dL) 79 (75-99) mg/dL POC Glu Vice President Sales ID Lawrence Pleitez Plasma Lactic Acid Francois (0.7-2.0) mmol/L Calcium (8.4-10.2) mg/dL Total Bilirubin (0.2-1.3) mg/dL AST (17-59) U/L ALT (4-49) U/L Alkaline Phosphatase (38-126) U/L Troponin I (0.000-0.034) ng/mL Total Protein (6.3-8.2) g/dL Albumin (3.5-5.0) g/dL Urine Color Yellow Urine Appearance Clear (Clear) Urine pH 5.0 (5.0-8.0) Ur Specific Jones 1.011 (1.001-1.035) Urine Protein Negative (Negative) Urine Glucose (UA) Negative (Negative) Urine Ketones Negative (Negative) Urine Blood Negative (Negative) Urine Nitrite Negative (Negative) Urine Bilirubin Negative (Negative) Urine Urobilinogen <2.0 (<2.0) mg/dL Ur Leukocyte Esterase Small H (Negative) Urine RBC 1 (0-5) /hpf Urine WBC 7 H (0-5) /hpf Ur Squamous Epith Cells <1 (0-4) /hpf Urine Bacteria Rare H (None) /hpf Urine Mucus Rare H (None) /hpf Coronavirus (PCR) Not Detected (Not Detectd) Disposition Clinical Impression: Pneumonia, Anemia, Generalized weakness Disposition: ADMITTED IP TO THIS [facility] Time of Disposition: 14:40
--- NOTE | 2020-09-27 12:22 | XR ---
EXAMINATION TYPE: XR chest 2V DATE OF EXAM: 09/27/2020 COMPARISON: 09/06/2020 TECHNIQUE: PA and lateral views submitted. HISTORY: Fever FINDINGS: Diffuse interstitial pattern with subsegmental basilar consolidation. No pneumothorax. Heart size nor mal. Tiny effusions not excluded. IMPRESSION: 1. Diffuse interstitial pattern correlate for interstitial pneumonitis versus venous congestion.
[2020-09-27] MEDS: SODIUM CHLORIDE 0.9% 500 ML 500 ML IV SCH ×2 (12:24→12:25)
[2020-09-27 12:51] LABS: Partial Thromboplastin Time 22.2 sec (22.0-30.0); Prothrombin Time 10.4 sec (9.0-12.0)
[2020-09-27 12:53] LABS: Albumin 3.2 g/dL (3.5-5.0); Calcium 8.4 mg/dL (8.4-10.2); Potassium 3.2 mmol/L (3.5-5.1); Total Protein 6.1 g/dL (6.3-8.2)
[2020-09-27 13:00] LABS: Glucose,Whole Blood 79 mg/dL (75-99)
[2020-09-27 13:02] LABS: Basophils # (A) 0.1 k/uL (0-0.2); Basophils % (A) 1 %; Eosinophils % (A) 1 %; HCT 30.8 % (39.0-53.0); Lymphocytes % (A) 18 %; MCH 28.9 pg (25.0-35.0); MCHC 34.7 g/dL (31.0-37.0); MCV 83.3 fL (80.0-100.0); Mean Platelet Volume 7.7; Monocytes # (A) 0.7 k/uL (0-1.0); Monocytes % (A) 14 %; Neutrophils # (A) 3.3 k/uL (1.3-7.7); Neutrophils % (A) 62 %; Platelet Count 252 k/uL (150-450); RBC 3.69 m/uL (4.30-5.90); RDW 14.3 % (11.5-15.5); WBC 5.3 k/uL (3.8-10.6)
[2020-09-27 13:04] LABS: HGB 10.7 gm/dL (13.0-17.5)
[2020-09-27 13:46] LABS: Appearance,Urine Clear (Clear); Bacteria,Urine Rare /hpf; Bilirubin,Urine Negative (Negative); Blood,Urine Negative (Negative); Color,Urine Yellow; Glucose,Urine (UA) Negative (Negative); Ketones,Urine Negative (Negative); Leukocyte Esterase,Urine Small (Negative); Mucus,Urine Rare /hpf; Nitrite,Urine Negative (Negative); Protein,Urine Negative (Negative); RBC,Urine 1 /hpf (0-5); Specific Gravity,Urine 1.011 (1.001-1.035); Squamous Epithelial Cell,Urine <1 /hpf (0-4); Urobilinogen,Urine <2.0 mg/dL (<2.0); WBC,Urine 7 /hpf (0-5)
[2020-09-27] MEDS ORDERED: AZITHROMYCIN 500 MG in SODIUM CHLORIDE 0.9% 250 ML IVPB STA (14:38)
[2020-09-27] MEDS ORDERED: PNEUMONIA PROTOCOL UTILIZED 1 EACH MISC PO PRN (14:38)
[2020-09-27] MEDS ORDERED: polyethylene glycoL 3350 17 GM POWD.PACK PO PRN (18:05)
[2020-09-27] MEDS ORDERED: bisacodyL 10 MG SUPP RECTAL PRN (18:05)
[2020-09-27] MEDS ORDERED: NITROGLYCERIN SL TABS 0.4 MG TAB SUBLINGUAL PRN (18:05)
[2020-09-27] MEDS ORDERED: MAGNESIUM HYDROXIDE 2,400 MG/10 ML CUP PO PRN (18:05)
[2020-09-27] MEDS ORDERED: AZELASTINE 137MCG/SPRAY EA NOSTRIL PRN (18:05)
[2020-09-27] MEDS ORDERED: cloNIDine HCL 0.1 MG TAB PO PRN (18:05)
[2020-09-27] MEDS ORDERED: ACETAMINOPHEN TAB 325 MG TAB PO PRN (18:05)
[2020-09-27 19:18] LABS: ABG Base Excess 7.7 mmol/L; ABG HCO3 33 mmol/L (21-25); ABG PCO2 57 mmHg (35-45); ABG PH 7.37 (7.35-7.45); ABG TCO2 35 mmol/L (19-24); Allen Test Performed? Yes
[2020-09-27 19:20] LABS: ABG PO2 53 mmHg (83-108)
[2020-09-27 19:32] LABS: Glucose,Whole Blood 87 mg/dL (75-99)
[2020-09-27] MEDS: INSULIN ASPART (NovoLOG) 100 UNIT/ML VIAL SQ SCH (20:53)
--- NOTE | 2020-09-27 20:55 | CT ---
EXAMINATION TYPE: CT brain wo/w con DATE OF EXAM: 09/27/2020 COMPARISON: 07/29/2019 HISTORY: Altered mental status CT DLP: mGycm Automated exposure control for dose reduction was used. CONTRAST: Performed , patient injected with mL of . The contrast was Isovue 100 mL. Images were obtained without and with IV contrast. Ventricles have normal size. There is no mass effect nor midline shift. There is no sign of intracran ial hemorrhage. The calvarium is intact. Contrast images show no pathologic enhancement. There is no evidence of cerebral edema. The skull base is intact. There is normal aeration of the temporal bones. There are mucus retention cysts in the maxillary sinuses. IMPRESSION: There is mild cerebral atrophy appropriate for age. No acute intracranial abnormality. No adverse iqra nge compared to old exam.
[2020-09-27] MEDS: ATORVASTATIN 80 MG TAB PO SCH (21:08)
[2020-09-27] MEDS: FAMOTIDINE 20 MG TAB PO SCH (21:08)
[2020-09-27] MEDS: PREGABALIN 75 MG CAP PO SCH (21:08)
[2020-09-27] MEDS: DIVALPROEX 500 MG TABLET.DR PO SCH (21:08)
[2020-09-27] MEDS: POTASSIUM CHLORIDE ER 20 MEQ TAB.ER PO SCH (21:08)
[2020-09-27] MEDS: METOPROLOL TARTRATE 25 MG TAB PO SCH (21:08)
[2020-09-27] MEDS: MONTELUKAST 10 MG TAB PO SCH (21:08)
[2020-09-27] MEDS: DULoxetine HCL 60 MG CAPSULE.DR PO SCH (21:08)
[2020-09-27] MEDS: guaiFENesin 600 MG TABLET.ER PO SCH (21:08)
[2020-09-27] MEDS: traZODone HCL 50 MG TAB PO SCH (21:09)
[2020-09-27] MEDS: MELATONIN 5 MG TABLET PO SCH (21:09)
[2020-09-28] MEDS: PIPERACILLIN-TAZOBACTAM 3.375 GM in SODIUM CHLORIDE 0.9% 100 ML IVPB SCH ×4 (00:45→23:56)
[2020-09-28] MEDS: POTASSIUM CHLORIDE ER 20 MEQ TAB.ER PO SCH ×2 (00:46→08:35)
[2020-09-28 03:27] LABS: Glucose,Whole Blood 122 mg/dL (75-99)
[2020-09-28] MEDS: METOPROLOL TARTRATE 25 MG TAB PO SCH ×3 (05:28→21:49)
--- NOTE | 2020-09-28 07:14 | XR ---
EXAMINATION TYPE: XR chest 1V DATE OF EXAM: 09/28/2020 COMPARISON: 09/27/2019 HISTORY: Cough TECHNIQUE: Single frontal view of the chest is obtained. FINDINGS: Diffuse interstitial pattern with subsegmental basilar consolidation. No pneumothorax. Hea rt size normal. No sizable pleural effusion. IMPRESSION: Persistent interstitial changes correlate for interstitial pneumonitis. Findings slightl y improved relative to prior exam.
[2020-09-28 07:31] LABS: Glucose,Whole Blood 105 mg/dL (75-99)
[2020-09-28] MEDS: DIVALPROEX 500 MG TABLET.DR PO SCH ×3 (08:33→21:47)
[2020-09-28] MEDS: metFORMIN 500 MG TAB PO SCH ×2 (08:33→17:16)
[2020-09-28] MEDS: FAMOTIDINE 20 MG TAB PO SCH ×2 (08:33→21:47)
[2020-09-28] MEDS: guaiFENesin 600 MG TABLET.ER PO SCH ×2 (08:33→21:47)
[2020-09-28] MEDS: ASPIRIN 81 MG PO SCH (08:33)
[2020-09-28] MEDS: DULoxetine HCL 60 MG CAPSULE.DR PO SCH (08:33)
[2020-09-28] MEDS: FUROSEMIDE 40 MG TAB PO SCH ×2 (08:35→13:54)
[2020-09-28] MEDS: AZITHROMYCIN 500 MG TAB PO SCH (08:36)
[2020-09-28] MEDS: INSULIN ASPART (NovoLOG) 100 UNIT/ML VIAL SQ SCH ×7 (08:55→20:36)
[2020-09-28] MEDS: methocarbamoL 750 MG TAB PO SCH ×2 (08:56→17:16)
[2020-09-28] MEDS: MIDODRINE 5 MG TAB PO SCH ×3 (08:56→17:16)
[2020-09-28] MEDS ORDERED: HALOPERIDOL LACTATE 5 MG/ML 1 ML VIAL IM PRN (09:02)
[2020-09-28 10:56] LABS: Glucose,Whole Blood 175 mg/dL (75-99)
--- NOTE | 2020-09-28 11:10 | P.CONS ---
History of Present Illness - Reason for Consult Consult date: 09/28/20 History of lung cancer, anemia - History of Present Illness This is a 54 yr old [facility] patient, of Dr Sosa's, who was diagnosed with squamous cell lung cancer,when a RML lung lesion was initially found during imaging he had in November/2018 when he had a stroke. he had complete staging work up at that time,then on 02/23/2019,he had right middle lobe lobectomy and regional nodes dissection,pathology revealed invasive squamous cell carcinoma, 4cm,negative marigins and negative nodes (T2aN0). He has had right thoracotomy pain since his surgery. On 06/20/2019,brain MRI was negative for mets,MRI of lumbar spine revealed dege nerative disease. He had a repeat CT scan of chest on 07/14/2019 which was negative for recurrence. He had CT of thoracic spine on 08/11/2019 which revealed no suspicious finding. He had a bone scan on 08/10/2019 which revealed some uptake at right lateral 7 th rib,attemped biopsy twice was negative (done at [facility],orderd by Dr Ramos). He had PET scan in 11/09, which again revealed no definite evidence of metastatic disease. There was some nonspecific uptake in the right rib cage which was felt to represent postthoracotomy findings. The patient also received nerve block in late 11/09 with marked improvement in symptoms he continues to have right sided rib pain,he has chronic back pain for years,since he fell off a roof,had laminectomy in the past,has significant neuropathy from his diabetes,known to have seizure,has residual neurological deficit from previous 3 strokes he had in the past,ambulates with a walker or wheelchair,he has been a resident at [facility] since February/2019. He also has an implantable pain pump in the left upper abdomen The patient was seen in consult in 02/06, when admitted with abdominal pain that was presumably due to pancreatitis. Post discharge was supposed to follow- up in the office with a repeat PET scan, but it doesn't appear that he has done so. He is a poor historian due to memory deficits, but did however stated that he does not think she has had any follow-up with Dr. Sosa since his last admission here. The patient came to the ER this time, as he was sent in for increased weakness compared to his baseline. He himself is a poor historian, and additional history was obtained from emergency room notes. He stated to me that he did not remember having any fever or chills. However he states that he had been feeling worse for the past few days, with some increased shortness of breath and cough with mild whitish to jareth expectoration. He also recalls some suprapubic discomfort with urination. He stated however that the symptoms were better since his admission. He denied any obvious bleeding. He denied any new areas of bone pain. Review of Systems Constitutional: Reports chronic pain, Reports fatigue, Reports weakness Eyes: denies blurred vision, denies pain Ears: deny: decreased hearing, ear discharge, earache, tinnitus Ears, nose, mouth and throat: Denies headache, Denies sore throat Cardiovascular: Reports dyspnea on exertion Respiratory: Reports cough with sputum, Reports dyspnea Gastrointestinal: Reports abdominal pain Genitourinary: Reports as per HPI, Reports dysuria Musculoskeletal: Reports muscle weakness Integumentary: Denies pruritus, Denies rash Neurological: Reports confusion, Reports memory loss, Reports weakness Psychiatric: Reports difficulty concentrating, Reports memory loss Endocrine: Reports fatigue Hematologic/Lymphatic: Reports as per HPI Past Medical History Past Medical History: Coronary Artery Disease (CAD), Cancer, COPD, Diabetes Mellitus, GERD/Reflux, Hyperlipidemia, Hypertension, Myocardial Infarction (IA), Osteoarthritis (OA), Seizure Disorder, Sleep Apnea/CPAP/BIPAP Additional Past Medical History / Comment(s): LAST SEIZURE 2019; lumbar radiculopathy; neuropathy; no CPAP needed per recent sleep study, hx. lung cancer Last Myocardial Infarction Date:: 10/22/10 History of Any Multi-Drug Resistant Organisms: None Reported Past Surgical History: Back Surgery, Cholecystectomy, Heart Catheterization With Stent Additional Past Surgical History / Comment(s): LAMINECTOMY ,fusion,spinal stimulator LEFT SHOULDER sx, 07-31-15 revison thoracic laminectomy t10- t11/removal of neuro stimulator and wires removed, fused L1&2 to a cage fusion that was previously put in to L3,4,5. May 27/2018. 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 Smoking Status: Former smoker Past Alcohol Use History: None Reported Additional Past Alcohol Use History / Comment(s): STARTED SMOKING 1977. Unable to obtain stopped smoking date. Past Drug Use History: None Reported Additional Drug Use History / Comment(s): HAS A MEDICAL MARIJUANA CARD-no current use. - Past Family History Brother(s) Family Medical History: Deep Vein Thrombosis (DVT) Mother Family Medical History: Osteoarthritis (OA) Additional Family Medical History / Comment(s): psoriases, Parkinsons Father Family Medical History: Coronary Artery Disease (CAD) Additional Family Medical History / Comment(s): heart problems- quad bypass, Medications and Allergies Home Medications Medication Instructions Recorded Confirmed Type levETIRAcetam [Keppra] 750 mg PO DAILY@1400 03/28/19 09/27/20 History Acetaminophen [Tylenol] 650 mg PO Q6H PRN 05/30/19 09/27/20 History Insulin Glargine,Hum.rec.anlog 30 unit SQ 05/30/19 09/27/20 History [Basaglar Kwsonnypen U-100] Linagliptin [Tradjenta] 5 mg PO DAILY 05/30/19 09/27/20 History Midodrine HCl [ProAmatine] 10 mg PO TID@0900,1300,1800 05/30/19 09/27/20 History rOPINIRole HCL [Requip] 3 mg PO TID@0600,1400,2200 05/30/19 09/27/20 History DULoxetine HCL [Cymbalta] 60 mg PO BID 07/21/19 09/27/20 History Divalproex Sodium [Depakote] 500 mg PO TID@0900,1300,2100 07/21/19 09/27/20 History Ergocalciferol [Vitamin D2 50,000 units PO ANDERSON 07/21/19 09/27/20 History (DRISDOL)] Montelukast [Singulair] 10 mg PO HS 07/21/19 09/27/20 History Famotidine [Pepcid] 20 mg PO BID 11/20/19 09/27/20 History Melatonin 10 mg PO HS 11/20/19 09/27/20 History Aspirin 81 mg PO DAILY 02/12/20 09/27/20 History Azelastine HCl 2 spray EA NOSTRIL BID PRN 02/12/20 09/27/20 History Potassium Chloride [K-Tab ER] 20 meq PO DAILY 02/12/20 09/27/20 History bisacodyL [Bisacodyl] 10 mg RECTAL DAILY PRN 02/12/20 09/27/20 History guaiFENesin [Mucinex] 600 mg PO BID 02/12/20 09/27/20 History Insulin Aspart [NovoLOG Flexpen] 6 units SQ AC-TID 05/03/20 09/27/20 History Insulin Aspart [NovoLOG Flexpen] See Protocol SQ AC-TID 05/03/20 09/27/20 History Magnesium Hydroxide [Milk of 2,400 mg PO DAILY PRN 05/03/20 09/27/20 History Magnesia] Methocarbamol [Robaxin-750] 750 mg PO BID@0900,1700 05/03/20 09/27/20 History levETIRAcetam [Keppra] 1,500 mg PO BID@0900,2100 05/03/20 09/27/20 History Atorvastatin [Lipitor] 80 mg PO HS #0 tab 05/07/20 09/27/20 Rx MORPHINE ORAL APOLLO 2mg/mL [Morphine 20 mg PO Q4H PRN #90 ml 05/07/20 09/27/20 Rx Oral Soln 2 MG/ML] Nitroglycerin Sl Tabs [Nitrostat] 0.4 mg SUBLINGUAL Q5M PRN #0 tab 05/07/20 09/27/20 Rx metFORMIN HCL 1,000 mg PO BID@0800,1700 #0 05/07/20 09/27/20 Rx Furosemide [Lasix] 40 mg PO BID@0900,1400 09/06/20 09/27/20 History Metoprolol Tartrate [Lopressor] 25 mg PO TID@0600,1400,2200 09/06/20 09/27/20 History Pregabalin [Lyrica] 225 mg PO BID 09/06/20 09/27/20 History QUEtiapine FUMARATE [SEROquel] 12.5 mg PO AC-SUPPER@1700 09/06/20 09/27/20 History cloNIDine HCL [Catapres] 0.1 mg PO TID PRN 09/06/20 09/27/20 History fentaNYL 75MCG/HR PATCH [Duragesic 1 patch TRANSDERM Q72H 09/06/20 09/27/20 History 75MCG/HR] polyethylene glycoL 3350 [Miralax] 17 gm PO DAILY PRN 09/06/20 09/27/20 History traZODone HCL 150 mg PO HS 09/06/20 09/27/20 History Cefuroxime [Ceftin] 250 mg PO BID 09/27/20 09/27/20 History Allergies Allergy/AdvReac Type Severity Reaction Status Date / Time baclofen Allergy Unknown Verified 09/27/20 13:50 cyclobenzaprine Allergy Unknown Verified 09/27/20 13:50 [From Flexeril] Physical Exam Vitals: Vital Signs Temp Pulse Pulse Resp BP BP Pulse Ox 09/28/20 04:59 98.6 F 93 18 159/74 100 09/28/20 02:00 18 97 09/27/20 19:48 97.5 F L 74 18 107/71 96 09/27/20 15:43 98.0 F 79 18 91/57 100 09/27/20 14:38 99 09/27/20 13:49 97.4 F L 80 18 91/57 97 09/27/20 11:02 101.7 F H 91 18 133/84 95 Intake and Output 09/27/20 09/28/20 09/28/20 22:59 06:59 14:59 Intake Total 1890 100 Output Total 450 Balance 1890 -350 Intake: Intake, IV Titration 300 100 Amount Azithromycin 500 mg In 250 Sodium Chloride 0.9% 250 ml @ 250 mls/hr IVPB ONCE STA Rx#:[id number] Piperacillin-Tazobactam 3 100 .375 gm In Sodium Chloride 0.9% 100 ml @ 25 mls/hr IVPB Q8HR SILVINO Rx# :[id number] cefTRIAXone 1 gm In 50 Sodium Chloride 0.9% 50 ml @ 100 mls/hr IVPB ONCE STA Rx#:[id number] Oral 1590 Output: Urine 450 Other: Voiding Method Bedside Commode # Voids 1 1 # Bowel Movements 1 1 Weight 90.718 kg - Constitutional General appearance: no acute distress - EENT Eyes: EOMI, PERRLA ENT: hearing grossly normal, normal oropharynx - Neck Neck: no lymphadenopathy - Respiratory Respiratory: bilateral: CTA - Cardiovascular Rhythm: regular Heart sounds: normal: S1, S2 - Gastrointestinal Subcutaneous pain pump left upper quadrant General gastrointestinal: normal bowel sounds, soft - Integumentary Integumentary: normal - Neurologic Neurologic: CNII-XII intact - Musculoskeletal Musculoskeletal: generalized weakness, strength equal bilaterally - Psychiatric Oriented 2 at least. Recall is very poor. Affect is slow and flat Results CBC & Chem 7: 09/27/20 12:03 09/27/20 12:03 Labs: Abnormal Lab Results - Last 24 Hours (Table) 09/27/20 09/27/20 09/27/20 Range/Units 12:03 12:03 12:03 RBC 3.69 L (4.30-5.90) m/uL Hgb 10.7 L D (13.0-17.5) gm/dL Hct 30.8 L (39.0-53.0) % ABG pCO2 (35-45) mmHg ABG pO2 (83-108) mmHg ABG HCO3 (21-25) mmol/L ABG Total CO2 (19-24) mmol/L ABG O2 Saturation (94-97) % Sodium 134 L (137-145) mmol/L Potassium 3.2 L (3.5-5.1) mmol/L Chloride 93 L (98-107) mmol/L Carbon Dioxide 33 H (22-30) mmol/L BUN 25 H (9-20) mg/dL POC Glucose (mg/dL) (75-99) mg/dL AST 234 H (17-59) U/L ALT 70 H (4-49) U/L Total Protein 6.1 L (6.3-8.2) g/dL Albumin 3.2 L (3.5-5.0) g/dL Procalcitonin 0.20 H (0.02-0.09) ng/mL Ur Leukocyte Esterase (Negative) Urine WBC (0-5) /hpf Urine Bacteria (None) /hpf Urine Mucus (None) /hpf 09/27/20 09/27/20 09/28/20 Range/Units 13:05 19:15 03:25 RBC (4.30-5.90) m/uL Hgb (13.0-17.5) gm/dL Hct (39.0-53.0) % ABG pCO2 57 H (35-45) mmHg ABG pO2 53 L* (83-108) mmHg ABG HCO3 33 H (21-25) mmol/L ABG Total CO2 35 H (19-24) mmol/L ABG O2 Saturation 83.0 L (94-97) % Sodium (137-145) mmol/L Potassium (3.5-5.1) mmol/L Chloride (98-107) mmol/L Carbon Dioxide (22-30) mmol/L BUN (9-20) mg/dL POC Glucose (mg/dL) 122 H (75-99) mg/dL AST (17-59) U/L ALT (4-49) U/L Total Protein (6.3-8.2) g/dL Albumin (3.5-5.0) g/dL Procalcitonin (0.02-0.09) ng/mL Ur Leukocyte Esterase Small H (Negative) Urine WBC 7 H (0-5) /hpf Urine Bacteria Rare H (None) /hpf Urine Mucus Rare H (None) /hpf 09/28/20 09/28/20 Range/Units 07:30 10:55 RBC (4.30-5.90) m/uL Hgb (13.0-17.5) gm/dL Hct (39.0-53.0) % ABG pCO2 (35-45) mmHg ABG pO2 (83-108) mmHg ABG HCO3 (21-25) mmol/L ABG Total CO2 (19-24) mmol/L ABG O2 Saturation (94-97) % Sodium (137-145) mmol/L Potassium (3.5-5.1) mmol/L Chloride (98-107) mmol/L Carbon Dioxide (22-30) mmol/L BUN (9-20) mg/dL POC Glucose (mg/dL) 105 H 175 H (75-99) mg/dL AST (17-59) U/L ALT (4-49) U/L Total Protein (6.3-8.2) g/dL Albumin (3.5-5.0) g/dL Procalcitonin (0.02-0.09) ng/mL Ur Leukocyte Esterase (Negative) Urine WBC (0-5) /hpf Urine Bacteria (None) /hpf Urine Mucus (None) /hpf Comments: EKG report, as well as cardiac cath and echocardiogram report from 05/09 reviewed Chest x-ray: report reviewed CT Scan - head: report reviewed Assessment and Plan (1) Non-small cell cancer of right lung Narrative/Plan: Patient has a history of the same, treated as described. Most recent imaging from our standpoint was in 02/06 which showed no definite evidence of recurrence. The patient was supposed to follow-up in the office and have a PET scan, but it does not appear that he has done so. We will confirm the same with review of his office chart - At this time CTA does not show any obvious evidence of recurrence. Therefore the plan would be to resume office follow-up as an outpatient with repeat imaging as indicated Current Visit: No Status: Acute Code(s): C34.91 - MALIGNANT NEOPLASM OF UNSP PART OF RIGHT BRONCHUS OR LUNG SNOMED Code(s): 391642035 (2) Anemia Narrative/Plan: The patient has had drops in hemoglobin previously in the setting of acute illness. Currently hemoglobin is 10.7. The patient has a history of heavy alcohol use in the past. Therefore most likely etiology some underlying marrow dysfunction leading to hypoproliferative anemia in setting of additional stress of acute illness. - Anemia workup will be ordered to rule out other causes. Current Visit: Yes Status: Acute Code(s): D64.9 - ANEMIA, UNSPECIFIED SNOMED Code(s): 415492955 (3) Pneumonia Narrative/Plan: The patient's computed tomography scan showed bilateral pneumonitis with coronavirus negative. Urinalysis only showed a small leukocyte esterase. Therefore to the admitting service for ongoing management Current Visit: Yes Status: Acute Code(s): J18.9 - PNEUMONIA, UNSPECIFIED ORGANISM SNOMED Code(s): 665889513
[2020-09-28 11:33] LABS: Reticulocyte % 2.5 % (0.5-2.0)
[2020-09-28] MEDS: MORPHINE ORAL SOLN 10 MG/5 ML CUP PO PRN ×3 (11:53→22:17)
[2020-09-28 11:57] LABS: African American GFR (CKD) 97.8 (60.0-200.0); Anion Gap 6.7 mmol/L (4.00-12.00); Calcium 8.1 mg/dL (8.7-10.3); Carbon Dioxide 36.3 mmol/L (21.6-31.8); Magnesium 1.6 mg/dL (1.5-2.4); Non-African American GFR(CKD) 84.4 (60.0-200.0); Potassium 3.5 mmol/L (3.5-5.5)
--- NOTE | 2020-09-28 12:08 | P.HPIM ---
History of Present Illness H&P Date: 09/28/20 Chief Complaint: mental status change HISTORY OF PRESENT ILLNESS This is a 54-year-old morbidly obese male who resides at [facility] in the [place] under the care of Dr. Ortiz. Patient also follows with Dr. Parker due to chronic pain with pain pump in place. He also has history of seizure disorder, CVA 3 with left-sided weakness and significant decreased mobility, history of hypertension, diabetes mellitus type II, hyperlipidemia, coronary artery disease with previous stent to the mid RCA, squamous cell lung cancer status post right middle lobe lobectomy. Patient had hallucinations about 2 weeks ago and Seroquel was started increased to 50 mg. 2 days ago, patient was diagnosed with a Klebsiella UTI that was pansensitive and started on Ceftin and received 2 doses. For the past 2-3 days he has not been eating or drinking. He's had increasing confusions. He has been going into other patient's rooms which is unusual for him. Patient was also treated for COVID-19 pneumonia on August 25 with Bamlanivimab, dexamethasone and antibiotics at the time. Patient presented to [facility] emergency center. Patient was febrile with a temperature 101.7, heart rate 91, blood pressure 133/84, pulse ox 95% on room air. WBC 5.3, hemoglobin 10.7, platelet count 252. Sodium 134, potassium 3.2, chloride 93, CO2 33, BUN 25 and creatinine 1.09. Blood sugar 94. Lactic acid 1.5. Troponin negative. Total bilirubin 1, AST 234, ALT 70, alkaline phosphatase 60. Urinalysis clear with leukoesterase small. COVID-19 not detected. CAT scan of the brain revealed mild cerebral atrophy appropriate for age. No acute intracranial abnormality. No adverse change. Chest x-ray reveals diffuse interstitial pattern correlate for interstitial pneumonitis versus venous congestion. Repeat chest x-ray this morning reveals persistent interstitial changes correlate for interstitial pneumonitis slightly improved. Patient admitted to the [facility] floor and started on azithromycin and Zosyn, consult with pulmonary medicine, oncology, neurology and psychiatry. Nursing staff states the patient had hallucinations through the night and morning. This morning he was very combative and hitting staff. Patient was very confused. Haldol given and patient called. Patient is normally very cooperative. REVIEW OF SYSTEMS Constitutional: Reported fever, reported chills, no night sweats. No weight change. Reported weakness, reported fatigue reported lethargy. Reported daytime sleepiness. EENT: No headache. No nasal drainage or congestion. No sore throat. Lungs: No shortness of breath, cough, no sputum production. No wheezing. Cardiovascular: No chest pain, no lower extremity edema. No syncopal episodes. Abdominal: No abdominal pain. No nausea, vomiting. No diarrhea. No constipation. No bloody or tarry stools reported loss of appetite. Reported decreased oral intake Genitourinary: Reported dysuria, increased frequency, urgency. No urinary retention. Musculoskeletal: No myalgias. Reported muscle weakness, chronic gait dysfunction, no frequent falls. Chronic back pain. No neck pain. Integumentary: No wounds, no lesions. No rash or pruritus. Neurologic: No aphasia. No facial droop. Reported change in mentation. No head injury. No headache. No paralysis. No paresthesia. Psychiatric: No depression. No anxiety. Reported hallucinations. Endocrine: No abnormal blood sugars. SOCIAL HISTORY He quit smoking over 2 years ago 1 ppd for over 40 years. He has history of alcohol abuse but has not had a drink since 2009. Patient is and on disability. 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 He does not have any children. Patient is a long-term resident at [facility] in [facility] after history of 3 CVAs and chronic left-sided weakness. He is wheelchair bound and sleeps in a recliner secondary to back pain. FAMILY HISTORY Father is at 78 with history of CVA with history of coronary artery disease status post CABG. Mother is alive at age 77 with history of Parkinson's. Patient has 4 brothers and one sister all living. No children. PHYSICAL EXAMINATION Gen: This is a 54-year-old male. He is resting in bed and appears to be comfortable at this time. He is argumentative with staff but Marcano in the presence of Dr. Ortiz was known to him. Patient is having hallucinations and demanding that the doors and windows be closed.] HEENT: Head is atraumatic, normocephalic. Pupils equal, round. Sclerae is anicteric. NECK: Supple. No JVD. No lymphadenopathy. No thyromegaly. LUNGS: Clear to auscultation. Diminished in the bases. No wheezes or rhonchi. No intercostal retractions. HEART: Regular rate and rhythm. No murmur. ABDOMEN: Soft. Bowel sounds are present. No masses. No tenderness. EXTREMITIES: No pedal edema. No calf tenderness. NEUROLOGICAL: Patient is awake, alert and oriented to self and place. Speech is clear. Cranial nerves 2 through 12 are grossly intact. ASSESSMENT AND PLAN 1. Metabolic encephalopathy with hallucinations with concerns for metastatic disease to the brain. Consult in place with neurology, psychiatry. EEG ordered. 2. Pneumonia, possible gram-negative pneumonia. Blood culture has been obtained. Sputum culture ordered. Consult with pulmonary medicine. Continue azathioprine, Zosyn, Mucinex. 3. Paranoia and hallucinations. Consult with psychiatry. Seroquel will be resumed at 25 mg daily. Continue Cymbalta 60 mg twice daily, trazodone 150 mg at bedtime. Patient started on Haldol 0.5 mg IM every 8 hours as needed. 4. History of non-small cell lung cancer status post right middle lobe lobectomy. Consult with Dr. Salcedo is appreciated. Patient is supposed to have follow-up in the office for PET scan no recurrence and no metastasis disease on previous imaging. 5. Chronic pain under the care of Dr. Parker. Pain pump is in place. Continue fentanyl patch 75 g 1 every 72 hours, Robaxin 750 mg twice daily, morphine 20 mg every 4 hours as needed. 6. History of CVA 3 with residual left-sided paraplegia. Continue aspirin, Lipitor. 7. Hypertension. Continue Catapres 0.1 mg 3 times daily as needed, Lasix 40 mg twice daily, Lopressor 25 mg 3 times daily. 8. Hyperlipidemia. Continue atorvastatin. 9. Diabetes mellitus type 2. Continue NovoLog 6 units with meals, try gentle 5 mg daily, metformin 1000 mg twice daily, NovoLog scale before meals and at bedtime 10. Diabetic neuropathy. Continue trazodone. 11. History of coronary artery disease status post stent in the mid RCA. Continue aspirin 81 mg daily, Lipitor 80 mg at bedtime. 12. Restless leg syndrome. Continue Requip 3 mg 3 times daily. 13. Seizure disorder. Continue Depakote 500 mg 3 times daily, Keppra 1500 mg at 9 AM and 9 PM, 751 g at 2 PM. 14. GI prophylaxis and gastroesophageal reflux disease. Continue Pepcid 20 mg twice daily. Patient will be admitted to the hospital for a minimum of 2 night stay. DISCHARGE PLAN Return to [facility]. Impression and plan of care have been directed as dictated by the signing physician. Eleonora Almeida nurse practitioner acting as scribe for signing physician. Past Medical History Past Medical History: Coronary Artery Disease (CAD), Cancer, COPD, Diabetes Mellitus, GERD/Reflux, Hyperlipidemia, Hypertension, Myocardial Infarction (MA), Osteoarthritis (OA), Seizure Disorder, Sleep Apnea/CPAP/BIPAP Additional Past Medical History / Comment(s): LAST SEIZURE 2018; lumbar radiculopathy; neuropathy; no CPAP needed per recent sleep study, hx. lung cancer Last Myocardial Infarction Date:: 10/22/10 History of Any Multi-Drug Resistant Organisms: None Reported Past Surgical History: Back Surgery, Cholecystectomy, Heart Catheterization With Stent Additional Past Surgical History / Comment(s): LAMINECTOMY ,fusion,spinal stimulator LEFT SHOULDER sx, 07-31-15 revison thoracic laminectomy t10- t11/removal of neuro stimulator and wires removed, fused L1&2 to a cage fusion that was previously put in to L3,4,5. May 27/2018. 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 Smoking Status: Former smoker Past Alcohol Use History: None Reported Additional Past Alcohol Use History / Comment(s): STARTED SMOKING 1977. Unable to obtain stopped smoking date. Past Drug Use History: None Reported Additional Drug Use History / Comment(s): HAS A MEDICAL MARIJUANA CARD-no current use. - Past Family History Brother(s) Family Medical History: Deep Vein Thrombosis (DVT) Mother Family Medical History: Osteoarthritis (OA) Additional Family Medical History / Comment(s): psoriases, Parkinsons Father Family Medical History: Coronary Artery Disease (CAD) Additional Family Medical History / Comment(s): heart problems- quad bypass, Medications and Allergies Home Medications Medication Instructions Recorded Confirmed Type levETIRAcetam [Keppra] 750 mg PO DAILY@1400 03/28/19 09/27/20 History Acetaminophen [Tylenol] 650 mg PO Q6H PRN 05/30/19 09/27/20 History Insulin Glargine,Hum.rec.anlog 30 unit SQ HS 05/30/19 09/27/20 History [Basaglar Kwikpen U-100] Linagliptin [Tradjenta] 5 mg PO DAILY 05/30/19 09/27/20 History Midodrine HCl [ProAmatine] 10 mg PO TID@0900,1300,1800 05/30/19 09/27/20 History rOPINIRole HCL [Requip] 3 mg PO TID@0600,1400,2200 05/30/19 09/27/20 History DULoxetine HCL [Cymbalta] 60 mg PO BID 07/21/19 09/27/20 History Divalproex Sodium [Depakote] 500 mg PO TID@0900,1300,2100 07/21/19 09/27/20 History Ergocalciferol [Vitamin D2 50,000 units PO ANDERSON 07/21/19 09/27/20 History (HARMAN)] Montelukast [Singulair] 10 mg PO HS 07/21/19 09/27/20 History Famotidine [Pepcid] 20 mg PO BID 11/20/19 09/27/20 History Melatonin 10 mg PO HS 11/20/19 09/27/20 History Aspirin 81 mg PO DAILY 02/12/20 09/27/20 History Azelastine HCl 2 spray EA NOSTRIL BID PRN 02/12/20 09/27/20 History Potassium Chloride [K-Tab ER] 20 meq PO DAILY 02/12/20 09/27/20 History bisacodyL [Bisacodyl] 10 mg RECTAL DAILY PRN 02/12/20 09/27/20 History guaiFENesin [Mucinex] 600 mg PO BID 02/12/20 09/27/20 History Insulin Aspart [NovoLOG Flexpen] 6 units SQ AC-TID 05/03/20 09/27/20 History Insulin Aspart [NovoLOG Flexpen] See Protocol SQ AC-TID 05/03/20 09/27/20 History Magnesium Hydroxide [Milk of 2,400 mg PO DAILY PRN 05/03/20 09/27/20 History Magnesia] Methocarbamol [Robaxin-750] 750 mg PO BID@0900,1700 05/03/20 09/27/20 History levETIRAcetam [Keppra] 1,500 mg PO BID@0900,2100 05/03/20 09/27/20 History Atorvastatin [Lipitor] 80 mg PO HS #0 tab 05/07/20 09/27/20 Rx MORPHINE ORAL APOLLO 2mg/mL [Morphine 20 mg PO Q4H PRN #90 ml 05/07/20 09/27/20 Rx Oral Soln 2 MG/ML] Nitroglycerin Sl Tabs [Nitrostat] 0.4 mg SUBLINGUAL Q5M PRN #0 tab 05/07/20 09/27/20 Rx metFORMIN HCL 1,000 mg PO BID@0800,1700 #0 05/07/20 09/27/20 Rx Furosemide [Lasix] 40 mg PO BID@0900,1400 09/06/20 09/27/20 History Metoprolol Tartrate [Lopressor] 25 mg PO TID@0600,1400,2200 09/06/20 09/27/20 History Pregabalin [Lyrica] 225 mg PO BID 09/06/20 09/27/20 History QUEtiapine FUMARATE [SEROquel] 12.5 mg PO AC-SUPPER@1700 09/06/20 09/27/20 History cloNIDine HCL [Catapres] 0.1 mg PO TID PRN 09/06/20 09/27/20 History fentaNYL 75MCG/HR PATCH [Duragesic 1 patch TRANSDERM Q72H 09/06/20 09/27/20 History 75MCG/HR] polyethylene glycoL 3350 [Miralax] 17 gm PO DAILY PRN 09/06/20 09/27/20 History traZODone HCL 150 mg PO HS 09/06/20 09/27/20 History Cefuroxime [Ceftin] 250 mg PO BID 09/27/20 09/27/20 History Allergies Allergy/AdvReac Type Severity Reaction Status Date / Time baclofen Allergy Unknown Verified 09/27/20 13:50 cyclobenzaprine Allergy Unknown Verified 09/27/20 13:50 [From Flexeril] Physical Exam Vitals: Vital Signs Temp Pulse Pulse Resp BP BP Pulse Ox 09/28/20 04:59 98.6 F 93 18 159/74 100 09/28/20 02:00 18 97 09/27/20 19:48 97.5 F L 74 18 107/71 96 09/27/20 15:43 98.0 F 79 18 91/57 100 09/27/20 14:38 99 09/27/20 13:49 97.4 F L 80 18 91/57 97 09/27/20 11:02 101.7 F H 91 18 133/84 95 Intake and Output 09/27/20 09/28/20 09/28/20 22:59 06:59 14:59 Intake Total 1890 100 Output Total 450 Balance 1890 -350 Intake: Intake, IV Titration 300 100 Amount Azithromycin 500 mg In 250 Sodium Chloride 0.9% 250 ml @ 250 mls/hr IVPB ONCE STA Rx#:[id number] Piperacillin-Tazobactam 3 100 .375 gm In Sodium Chloride 0.9% 100 ml @ 25 mls/hr IVPB Q8HR SILVINO Rx# :[id number] cefTRIAXone 1 gm In 50 Sodium Chloride 0.9% 50 ml @ 100 mls/hr IVPB ONCE STA Rx#:[id number] Oral 1590 Output: Urine 450 Other: Voiding Method Bedside Commode # Voids 1 1 # Bowel Movements 1 1 Weight 90.718 kg Results CBC & Chem 7: 09/27/20 12:03 09/27/20 12:03 Labs: Abnormal Lab Results - Last 24 Hours (Table) 09/27/20 09/27/20 09/27/20 Range/Units 12:03 12:03 12:03 RBC 3.69 L (4.30-5.90) m/uL Hgb 10.7 L D (13.0-17.5) gm/dL Hct 30.8 L (39.0-53.0) % ABG pCO2 (35-45) mmHg ABG pO2 (83-108) mmHg ABG HCO3 (21-25) mmol/L ABG Total CO2 (19-24) mmol/L ABG O2 Saturation (94-97) % Sodium 134 L (137-145) mmol/L Potassium 3.2 L (3.5-5.1) mmol/L Chloride 93 L (98-107) mmol/L Carbon Dioxide 33 H (22-30) mmol/L BUN 25 H (9-20) mg/dL POC Glucose (mg/dL) (75-99) mg/dL AST 234 H (17-59) U/L ALT 70 H (4-49) U/L Total Protein 6.1 L (6.3-8.2) g/dL Albumin 3.2 L (3.5-5.0) g/dL Procalcitonin 0.20 H (0.02-0.09) ng/mL Ur Leukocyte Esterase (Negative) Urine WBC (0-5) /hpf Urine Bacteria (None) /hpf Urine Mucus (None) /hpf 09/27/20 09/27/20 09/28/20 Range/Units 13:05 19:15 03:25 RBC (4.30-5.90) m/uL Hgb (13.0-17.5) gm/dL Hct (39.0-53.0) % ABG pCO2 57 H (35-45) mmHg ABG pO2 53 L* (83-108) mmHg ABG HCO3 33 H (21-25) mmol/L ABG Total CO2 35 H (19-24) mmol/L ABG O2 Saturation 83.0 L (94-97) % Sodium (137-145) mmol/L Potassium (3.5-5.1) mmol/L Chloride (98-107) mmol/L Carbon Dioxide (22-30) mmol/L BUN (9-20) mg/dL POC Glucose (mg/dL) 122 H (75-99) mg/dL AST (17-59) U/L ALT (4-49) U/L Total Protein (6.3-8.2) g/dL Albumin (3.5-5.0) g/dL Procalcitonin (0.02-0.09) ng/mL Ur Leukocyte Esterase Small H (Negative) Urine WBC 7 H (0-5) /hpf Urine Bacteria Rare H (None) /hpf Urine Mucus Rare H (None) /hpf 09/28/20 Range/Units 07:30 RBC (4.30-5.90) m/uL Hgb (13.0-17.5) gm/dL Hct (39.0-53.0) % ABG pCO2 (35-45) mmHg ABG pO2 (83-108) mmHg ABG HCO3 (21-25) mmol/L ABG Total CO2 (19-24) mmol/L ABG O2 Saturation (94-97) % Sodium (137-145) mmol/L Potassium (3.5-5.1) mmol/L Chloride (98-107) mmol/L Carbon Dioxide (22-30) mmol/L BUN (9-20) mg/dL POC Glucose (mg/dL) 105 H (75-99) mg/dL AST (17-59) U/L ALT (4-49) U/L Total Protein (6.3-8.2) g/dL Albumin (3.5-5.0) g/dL Procalcitonin (0.02-0.09) ng/mL Ur Leukocyte Esterase (Negative) Urine WBC (0-5) /hpf Urine Bacteria (None) /hpf Urine Mucus (None) /hpf Thrombosis Risk Factor Assmnt - Choose All That Apply Each Factor Represents 1 point: Age 41-60 years, Obesity (BMI >25), Swollen legs (current) Other Risk Factors: Yes Each Risk Factor Represents 2 Points: Malignancy Other congenital or acquired thrombophilia - If yes, enter type in comment: No Thrombosis Risk Factor Assessment Total Risk Factor Score: 5 Thrombosis Risk Factor Assessment Level: High Risk
[2020-09-28] MEDS ORDERED: OLANZapine 10 MG VIAL IM PRN (12:39)
--- NOTE | 2020-09-28 12:57 | P.CN ---
Psychiatric Consult - . Consult date: 09/28/20 Consult:: IDENTIFYING DATA: This patient is a , on SSI, 54-year-old male who was admitted for increasing confusion, decreased appetite, and odd behaviors for the past few days. HISTORY OF PRESENT ILLNESS: The patient presented to the hospital on 09/27/2020 and presented to the emergency department as febrile with a temperature 101.7. The patient was reportedly expressing hallucinations through the night and morning. He was also noted to be very combative and hitting staff. Patient was very confused. Patient was given Haldol. Psychiatry was consulted for management of confusion, and agitation. The patient was recently treated for covered 19 pneumonia on August 25 and received a regimen of dexamethasone, antibiotics, and antiviral medication at that time. Furthermore, on this presentation to the emergency department, chest x-ray revealed diffuse interstitial no pattern which may be indicated for interstitial pneumonitis versus venous congestion. At this time, the patient appears to be calm and cooperative but did receive Haldol earlier this morning. He is currently reporting no auditory or visual hallucinations. He is not reporting any paranoia or delusions at this time. He did state that he was experiencing some auditory hallucinations but reports that this might have been his neighbors speaking. He denies any command type hallucinations. The patient does admit that he has been increasingly confused. He is currently not alert and oriented to place or time. He states that the year is 2019 and he is not certain where he is currently. He does admit that things mentally he has not been doing well since his in 2006. He states that that was when he was first diagnosed with depression and placed on medication. Prior to this admission, the patient states that he has been f eeling increasingly "edgy" and angry. He states that he has been sleeping only about 2-3 hours per night. He reports a decreased appetite and states that he believes he's lost about 40 pounds over the last 2-3 months unintentionally. Prior to 2006, the patient is not reporting any significant psychiatric history. He denies any significant history of psychosis or history of manic episodes. He denies any prior attempts at suicide. PAST PSYCHIATRIC HISTORY: Patient has a a history of depression. He recalls prior trials of Effexor and Prozac. Currently his home medications include Cymbalta, Seroquel, Depakote, Keppra, fentanyl, ropinirole, and melatonin. With one prior psychiatric hospitalization in 2006 for depression after his . He states he was admitted on [facility]. Patient denies any psychiatric outpatient follow-up. Patient denies any history of suicide attempts in the past. PAST MEDICAL HISTORY: Coronary Artery Disease (CAD), Cancer, COPD, Diabetes Mellitus, GERD/Reflux, Hyperlipidemia, Hypertension, Myocardial Infarction (NH), Osteoarthritis (OA), Seizure Disorder, Sleep Apnea/CPAP/BIPAP. Non-Small cell lung carcinoma. ALLERGIES: Baclofen, cyclobenzaprine. CHEMICAL DEPENDENCY HISTORY: Patient has a remote history of alcohol abuse. States that he has quit drinking in 2009. He quit smoking over 2 years ago but prior to that he smoked 1 pack per day for 40 years. FAMILY PSYCHIATRIC/SUBSTANCE USE HISTORY: Denies SOCIAL HISTORY: Patient has been staying at [facility] in [facility] prior to this admission. He has a history of 3 CVAs and chronic left-sided weakness. He is wheelchair-bound and sleeps in a recliner. Patient is since 2006. 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 He reports that he fell off a roof in 2006 resulting in chronic back pain. He is currently receiving disability.. MENTAL STATUS EXAM: General Appearance: Patient appears to be stated age is alert, pleasant, and cooperative. Patient appears to have fair hygiene and grooming wearing hospital gown with fair eye contact. Obese body habitus. Behavior: Patient is calmly lying in bed without any agitated behavior. Psychomotor activity appears slightly elevated. Speech: Patient's speech is fluent and nonpressured. Nonlinear, tangential at times. Mood/Affect: Patient reports their mood is "edgy", affect is odd and unpredictab le at times. Suicidality/Homicidality: Patient denies having any suicidal or homicidal ideation intent or plan. Perceptions: Patient denies any visual hallucinations but reports some auditory hallucinations. Though content/process: Patient appears to be somewhat disorganized. He is nonlinear at times and providing answers to questions. Memory and concentration: AOX3, grossly intact for the purposes of this session. Can spell "WORLD" backwards Judgment and insight: Poor IMPRESSIONS: Metabolic encephalopathy with hallucinations -Multiple etiologies may may be contributing to his current presentation including active infection with pneumonia, history of dexamethasone, possible metastases to the brain, polypharmacy. Psychosis, unspecified PLAN: -At this time patient DOES NOT meet criteria for inpatient psychiatric admission. Patient will need to be thoroughly evaluated and treated for causes of delirium before he meets criteria for an inpatient psychiatric admission. -Delirium precautions recommended with patient including - avoiding use of narcotics and PLUMBING INSTALLER sedatives, limit anticholinergic medications when possible, frequent re-orientation, minimize use of restraints, open window shades during the day and close them at night -Would recommend the following medication changes/additions: -Will increase his Seroquel to 50 mg by mouth at bedtime. -We will start Zyprexa 5 mg IM 3 times a day when necessary for agitation. -We will decrease Cymbalta to 30 mg by mouth twice a day for concern of over activation with serotonin which may lead to agitation and increased confusion. Likely will taper this medication off to decrease polypharmacy as well. -Continue trazodone 150 mg by mouth at bedtime. May consider discontinuing this medication while we increase his Seroquel to decrease polypharmacy. -May continue melatonin 10 mg by mouth at bedtime for insomnia. -Will continue to follow along 09/28/20 12:38
[2020-09-28] MEDS: LINAGLIPTIN 5 MG TABLET PO SCH (13:16)
[2020-09-28] MEDS ORDERED: IPRATROPIUM-ALBUTEROL 3 ML NEB INHALATION PRN (13:29)
--- NOTE | 2020-09-28 13:36 | P.CNPUL ---
History of Present Illness Consult date: 09/28/20 Requesting physician: Cal Handy Reason for consult: dyspnea Chief complaint: Fever, weakness History of present illness: This is a 54-year-old gentleman who resides in extended care facility. He has a history of coronary artery disease with previous stent placement, COPD, diabetes mellitus, hypertension, hyperlipidemia, seizure disorder. He also has a history of squamous cell lung cancer with previous right middle lobectomy done at [facility]. He follows with Dr. Sosa. ([id number]). He has had ongoing right thoracotomy pain since surgery and is seen at the pain clinic. He also has had multiple back surgeries and pain stimulators in place subsequently removed. He has been residing at [facility] on [facility] [place] [place] since February 2019. He reportedly did have CoVID 19 on 08/25/2020 and treated with dexamethasone and antivirals. He was brought into the emergency room after being felt to have increasing weakness, fevers. CT scan of the brain revealed mild cerebral atrophy appropriate for age. No acute intracranial abnormalities. White count 5.3. Hemoglobin 10.7. D-dimer 2.10. Sodium 139. Potassium 3.5. Creatinine 1.0. Glucose 20.20. Gibbs virus not detected. Influenza A/B not detected. Blood gases were obtained on 21% FiO2 with a pO2 of 53, pCO2 57, pH 7.37. We're consulted for the same. He is seen today in consultation on the regular medical floor. He was somewhat agitated, hallucinating and restless. He tried to hit at staff. A Mr. Vlia was called on him earlier today. He was treated with Haldol. Psychiatric services are on the case. He is maintaining good O2 saturations up to 100% on 2 L/m per nasal cannula. He did have a T-max of 101.7. Currently afebrile. Chest x-ray shows interstitial changes suspicious for interstitial pneumonitis. He is currently on Zosyn and azithromycin. Review of Systems ROS unobtainable: due to mental status Past Medical History Past Medical History: Coronary Artery Disease (CAD), Cancer, COPD, Diabetes Mellitus, GERD/Reflux, Hyperlipidemia, Hypertension, Myocardial Infarction (PR), Osteoarthritis (OA), Seizure Disorder, Sleep Apnea/CPAP/BIPAP Additional Past Medical History / Comment(s): LAST SEIZURE 2018; lumbar radiculopathy; neuropathy; no CPAP needed per recent sleep study, hx. lung cance r Last Myocardial Infarction Date:: 10/22/10 History of Any Multi-Drug Resistant Organisms: None Reported Past Surgical History: Back Surgery, Cholecystectomy, Heart Catheterization With Stent Additional Past Surgical History / Comment(s): LAMINECTOMY ,fusion,spinal stimulator LEFT SHOULDER sx, 07-31-15 revison thoracic laminectomy t10- t11/removal of neuro stimulator and wires removed, fused L1&2 to a cage fusion that was previously put in to L3,4,5. May 27/2018. 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 Smoking Status: Former smoker Past Alcohol Use History: None Reported Additional Past Alcohol Use History / Comment(s): STARTED SMOKING 1977. Unable to obtain stopped smoking date. Past Drug Use History: None Reported Additional Drug Use History / Comment(s): HAS A MEDICAL MARIJUANA CARD-no current use. - Past Family History Brother(s) Family Medical History: Deep Vein Thrombosis (DVT) Mother Family Medical History: Osteoarthritis (OA) Additional Family Medical History / Comment(s): psoriases, Parkinsons Father Family Medical History: Coronary Artery Disease (CAD) Additional Family Medical History / Comment(s): heart problems- quad bypass, Medications and Allergies Home Medications Medication Instructions Recorded Confirmed Type levETIRAcetam [Keppra] 750 mg PO DAILY@1400 03/28/19 09/27/20 History Acetaminophen [Tylenol] 650 mg PO Q6H PRN 05/30/19 09/27/20 History Insulin Glargine,Hum.rec.anlog 30 unit SQ HS 05/30/19 09/27/20 History [Basaglar Kwikpen U-100] Linagliptin [Tradjenta] 5 mg PO DAILY 05/30/19 09/27/20 History Midodrine HCl [ProAmatine] 10 mg PO TID@0900,1300,1800 05/30/19 09/27/20 History rOPINIRole HCL [Requip] 3 mg PO TID@0600,1400,2200 05/30/19 09/27/20 History DULoxetine HCL [Cymbalta] 60 mg PO BID 07/21/19 09/27/20 History Divalproex Sodium [Depakote] 500 mg PO TID@0900,1300,2100 07/21/19 09/27/20 History Ergocalciferol [Vitamin D2 50,000 units PO ANDERSON 07/21/19 09/27/20 History (DRISDOL)] Montelukast [Singulair] 10 mg PO HS 07/21/19 09/27/20 History Famotidine [Pepcid] 20 mg PO BID 11/20/19 09/27/20 History Melatonin 10 mg PO HS 11/20/19 09/27/20 History Aspirin 81 mg PO DAILY 02/12/20 09/27/20 History Azelastine HCl 2 spray EA NOSTRIL BID PRN 02/12/20 09/27/20 History Potassium Chloride [K-Tab ER] 20 meq PO DAILY 02/12/20 09/27/20 History bisacodyL [Bisacodyl] 10 mg RECTAL DAILY PRN 02/12/20 09/27/20 History guaiFENesin [Mucinex] 600 mg PO BID 02/12/20 09/27/20 History Insulin Aspart [NovoLOG Flexpen] 6 units SQ AC-TID 05/03/20 09/27/20 History Insulin Aspart [NovoLOG Flexpen] See Protocol SQ AC-TID 05/03/20 09/27/20 History Magnesium Hydroxide [Milk of 2,400 mg PO DAILY PRN 05/03/20 09/27/20 History Magnesia] Methocarbamol [Robaxin-750] 750 mg PO BID@0900,1700 05/03/20 09/27/20 History levETIRAcetam [Keppra] 1,500 mg PO BID@0900,2100 05/03/20 09/27/20 History Atorvastatin [Lipitor] 80 mg PO HS #0 tab 05/07/20 09/27/20 Rx MORPHINE ORAL APOLLO 2mg/mL [Morphine 20 mg PO Q4H PRN #90 ml 05/07/20 09/27/20 Rx Oral Soln 2 MG/ML] Nitroglycerin Sl Tabs [Nitrostat] 0.4 mg SUBLINGUAL Q5M PRN #0 tab 05/07/20 09/27/20 Rx metFORMIN HCL 1,000 mg PO BID@0800,1700 #0 05/07/20 09/27/20 Rx Furosemide [Lasix] 40 mg PO BID@0900,1400 09/06/20 09/27/20 History Metoprolol Tartrate [Lopressor] 25 mg PO TID@0600,1400,2200 09/06/20 09/27/20 History Pregabalin [Lyrica] 225 mg PO BID 09/06/20 09/27/20 History QUEtiapine FUMARATE [SEROquel] 12.5 mg PO AC-SUPPER@1700 09/06/20 09/27/20 History cloNIDine HCL [Catapres] 0.1 mg PO TID PRN 09/06/20 09/27/20 History fentaNYL 75MCG/HR PATCH [Duragesic 1 patch TRANSDERM Q72H 09/06/20 09/27/20 History 75MCG/HR] polyethylene glycoL 3350 [Miralax] 17 gm PO DAILY PRN 09/06/20 09/27/20 History traZODone HCL 150 mg PO HS 09/06/20 09/27/20 History Cefuroxime [Ceftin] 250 mg PO BID 09/27/20 09/27/20 History Allergies Allergy/AdvReac Type Severity Reaction Status Date / Time baclofen Allergy Unknown Verified 09/27/20 13:50 cyclobenzaprine Allergy Unknown Verified 09/27/20 13:50 [From Flexeril] Physical Exam Vitals: Vital Signs Temp Pulse Pulse Resp BP BP Pulse Ox 09/28/20 11:31 98.3 F 95 17 115/72 99 09/28/20 04:59 98.6 F 93 18 159/74 100 09/28/20 02:00 18 97 09/27/20 19:48 97.5 F L 74 18 107/71 96 09/27/20 15:43 98.0 F 79 18 91/57 100 09/27/20 14:38 99 09/27/20 13:49 97.4 F L 80 18 91/57 97 Intake and Output 09/27/20 09/28/20 09/28/20 22:59 06:59 14:59 Intake Total 1890 100 Output Total 450 Balance 1890 -350 Intake: Intake, IV Titration 300 100 Amount Azithromycin 500 mg In 250 Sodium Chloride 0.9% 250 ml @ 250 mls/hr IVPB ONCE ST[facility] Rx#:[id number] Piperacillin-Tazobactam 3 100 .375 gm In Sodium Chloride 0.9% 100 ml @ 25 mls/hr IVPB Q8HR [facility] Rx# :[id number] cefTRIAXone 1 gm In 50 Sodium Chloride 0.9% 50 ml @ 100 mls/hr IVPB ONCE ST[facility] Rx#:[id number] Oral 1590 Output: Urine 450 Other: Voiding Method Bedside Commode Bedside Commode # Voids 1 1 # Bowel Movements 1 1 Weight 90.718 kg GENERAL EXAM: Alert, 54-year-old gentleman, on 2 L nasal cannula, somewhat slow to respond, appears comfortable in no apparent distress. HEAD: Normocephalic. EYES: Normal reaction of pupils, equal size. NOSE: Clear with pink turbinates. THROAT: No erythema or exudates. NECK: No masses, no JVD. CHEST: No chest wall deformity. LUNGS: Equal air entry with no crackles, wheeze, rhonchi or dullness. CVS: S1 and S2 normal with no audible murmur, regular rhythm. ABDOMEN: No hepatosplenomegaly, normal bowel sounds, no guarding or rigidity. SPINE: No scoliosis or deformity SKIN: No rashes CENTRAL NERVOUS SYSTEM: History of dementia, tone is normal in all 4 extremities. EXTREMITIES: There is no peripheral edema. No clubbing, no cyanosis. Peripheral pulses are intact. Results - Laboratory Findings CBC and BMP: 09/27/20 12:03 09/28/20 06:39 ABG ABG pH 7.37 (7.35-7.45) 09/27/20 19:15 ABG pCO2 57 mmHg (35-45) H 09/27/20 19:15 ABG pO2 53 mmHg (83-108) L* 09/27/20 19:15 ABG O2 Saturation 83.0 % (94-97) L 09/27/20 19:15 PT/INR, D-dimer PT 10.4 sec (9.0-12.0) 09/27/20 12:03 INR 1.0 (<1.2) 09/27/20 12:03 D-Dimer 2.10 mg/L FEU (<0.60) H 09/28/20 12:03 Abnormal lab findings: Abnormal Labs 09/27/20 09/27/20 09/27/20 12:03 12:03 12:03 RBC 3.69 L Hgb 10.7 L D Hct 30.8 L Retic Count D-Dimer ABG pCO2 ABG pO2 ABG HCO3 ABG Total CO2 ABG O2 Saturation Sodium 134 L Potassium 3.2 L Chloride 93 L Carbon Dioxide 33 H BUN 25 H BUN/Creatinine Ratio Glucose POC Glucose (mg/dL) Calcium AST 234 H ALT 70 H Total Protein 6.1 L Albumin 3.2 L Procalcitonin 0.20 H Ur Leukocyte Esterase Urine WBC Urine Bacteria Urine Mucus 09/27/20 09/27/20 09/28/20 13:05 19:15 03:25 RBC Hgb Hct Retic Count D-Dimer ABG pCO2 57 H ABG pO2 53 L* ABG HCO3 33 H ABG Total CO2 35 H ABG O2 Saturation 83.0 L Sodium Potassium Chloride Carbon Dioxide BUN BUN/Creatinine Ratio Glucose POC Glucose (mg/dL) 122 H Calcium AST ALT Total Protein Albumin Procalcitonin Ur Leukocyte Esterase Small H Urine WBC 7 H Urine Bacteria Rare H Urine Mucus Rare H 09/28/20 09/28/20 09/28/20 06:39 06:39 07:30 RBC Hgb Hct Retic Count 2.5 H D-Dimer ABG pCO2 ABG pO2 ABG HCO3 ABG Total CO2 ABG O2 Saturation Sodium Potassium Chloride Carbon Dioxide 36.3 H BUN BUN/Creatinine Ratio 24.00 H Glucose 118 H POC Glucose (mg/dL) 105 H Calcium 8.1 L AST ALT Total Protein Albumin Procalcitonin Ur Leukocyte Esterase Urine WBC Urine Bacteria Urine Mucus 09/28/20 09/28/20 10:55 12:03 RBC Hgb Hct Retic Count D-Dimer 2.10 H ABG pCO2 ABG pO2 ABG HCO3 ABG Total CO2 ABG O2 Saturation Sodium Potassium Chloride Carbon Dioxide BUN BUN/Creatinine Ratio Glucose POC Glucose (mg/dL) 175 H Calcium AST ALT Total Protein Albumin Procalcitonin Ur Leukocyte Esterase Urine WBC Urine Bacteria Urine Mucus - Diagnostic Findings Chest x-ray: image reviewed Assessment and Plan Assessment: 1 Acute hypoxic respiratory failure with a pO2 of 53 on arterial blood gases on 21% FiO2 suspect residual COVID 19 pneumonitis. Tested positive 08/25/2020 at [facility]. Treated with dexamethasone. 2 Altered mental status secondary to above 3 Febrile illness of unclear etiology 3 History of dementia, agitated, restless, swinging at staff. Required Haldol. Psychiatric services consulted. 4 History of non-small cell cancer of the right lung status post right middle lobe lobectomy 5 History of CVA with residual left-sided paraplegia 6 Hyperlipidemia 7 Hypertension 8 Coronary artery disease with previous stent placement 9 History of seizures 11 Diabetes mellitus, type II 12 Obesity 13 History of alcohol abuse Plan: The patient was seen and evaluated by Dr. Montalvo Chest x-ray, ABGs and labs reviewed Continue antibiotics and oxygen supplement for now Titrate down and off the FiO2 as tolerated Bronchodilators as needed PET scan in the outpatient setting her oncology We will continue to follow and make further recommendations based on his clinical status I, the cosigning physician, performed a history & physical examination of the patient. Lungs sounds with faint crackles in the bilateral posterior bases. Maintaining good O2 saturations in the 90s on 2 L/m per nasal cannula. I discussed the assessment and plan of care with my nurse practitioner, Leighann Arreguin. I attest to the above consultation as dictated by her. Time with Patient: Greater than 30
[2020-09-28] MEDS ORDERED: QUEtiapine 25 MG TAB PO SCH ×2 (17:00)
[2020-09-28 17:06] LABS: Glucose,Whole Blood 231 mg/dL (75-99)
[2020-09-28 17:44] LABS: Protein, Total 5.5 g/dL (6.2-8.2)
[2020-09-28 18:19] LABS: % Iron Saturation 7.41 (15.00-50.00); Ferritin 341.3 ng/mL (22.0-322.0)
[2020-09-28] MEDS: IPRATROPIUM-ALBUTEROL 3 ML NEB INHALATION SCH (19:25)
[2020-09-28 20:33] LABS: Glucose,Whole Blood 130 mg/dL (75-99)
[2020-09-28] MEDS ORDERED: QUEtiapine 50 MG TAB PO SCH (21:00)
[2020-09-28] MEDS: HEPARIN SODIUM,PORCINE 5,000 UNIT/ML 1 ML VIAL SQ SCH (21:47)
[2020-09-28] MEDS: traZODone HCL 50 MG TAB PO SCH (21:47)
[2020-09-28] MEDS: MONTELUKAST 10 MG TAB PO SCH (21:47)
[2020-09-28] MEDS: ATORVASTATIN 80 MG TAB PO SCH (21:48)
[2020-09-28] MEDS: PREGABALIN 75 MG CAP PO SCH (21:48)
[2020-09-28] MEDS: DULoxetine HCL 30 MG CAPSULE.DR PO SCH (21:48)
[2020-09-28] MEDS: MELATONIN 5 MG TABLET PO SCH (21:48)
[2020-09-29] MEDS: METOPROLOL TARTRATE 25 MG TAB PO SCH ×3 (06:01→21:41)
[2020-09-29] MEDS: IPRATROPIUM-ALBUTEROL 3 ML NEB INHALATION SCH ×3 (07:30→20:24)
[2020-09-29 07:31] LABS: Glucose,Whole Blood 107 mg/dL (75-99)
[2020-09-29] MEDS: INSULIN ASPART (NovoLOG) 100 UNIT/ML VIAL SQ SCH ×7 (07:32→21:04)
[2020-09-29] MEDS ORDERED: ERGOCALCIFEROL 50,000 UNIT CAP PO SCH (09:00)
[2020-09-29] MEDS: MIDODRINE 5 MG TAB PO SCH ×3 (09:12→17:11)
[2020-09-29] MEDS: methocarbamoL 750 MG TAB PO SCH ×2 (09:13→16:48)
[2020-09-29] MEDS: ASPIRIN 81 MG PO SCH (09:13)
[2020-09-29] MEDS: FUROSEMIDE 40 MG TAB PO SCH ×2 (09:14→14:00)
[2020-09-29] MEDS: DIVALPROEX 500 MG TABLET.DR PO SCH ×3 (09:14→21:41)
[2020-09-29] MEDS: LINAGLIPTIN 5 MG TABLET PO SCH (09:14)
[2020-09-29] MEDS: POTASSIUM CHLORIDE ER 20 MEQ TAB.ER PO SCH (09:14)
[2020-09-29] MEDS: AZITHROMYCIN 500 MG TAB PO SCH (09:14)
[2020-09-29] MEDS: FAMOTIDINE 20 MG TAB PO SCH ×2 (09:14→21:41)
[2020-09-29] MEDS: DULoxetine HCL 30 MG CAPSULE.DR PO SCH ×2 (09:14→21:41)
[2020-09-29] MEDS: guaiFENesin 600 MG TABLET.ER PO SCH ×2 (09:14→21:40)
[2020-09-29] MEDS: PIPERACILLIN-TAZOBACTAM 3.375 GM in SODIUM CHLORIDE 0.9% 100 ML IVPB SCH ×2 (09:15→16:46)
[2020-09-29] MEDS: HEPARIN SODIUM,PORCINE 5,000 UNIT/ML 1 ML VIAL SQ SCH ×2 (09:15→21:41)
[2020-09-29] MEDS: metFORMIN 500 MG TAB PO SCH ×2 (09:18→16:48)
--- NOTE | 2020-09-29 11:12 | P.PN ---
Subjective Progress Note Date: 09/29/20 HISTORY OF PRESENT ILLNESS This is a 54-year-old morbidly obese male who resides at [facility] in the [place] under the care of Dr. Ortiz. Patient also follows with Dr. Parker due to chronic pain with pain pump in place. He also has history of seizure disorder, CVA 3 with left-sided weakness and significant decreased mobility, history of hypertension, diabetes mellitus type II, hyperlipidemia, coronary artery disease with previous stent to the mid RCA, squamous cell lung cancer status post right middle lobe lobectomy. Patient had hallucinations about 2 weeks ago and Seroquel was started increased to 50 mg. 2 days ago, patient was diagnosed with a Klebsiella UTI that was pansensitive and started on Ceftin and received 2 doses. For the past 2-3 days he has not been eating or drinking. He's had increasing confusions. He has been going into other patient's rooms which is unusual for him. Patient was also treated for COVID-19 pneumonia on August 25 with Bamlanivimab, dexamethasone and antibiotics at the time. Patient presented to [facility] emergency center. Patient was febrile with a temperature 101.7, heart rate 91, blood pressure 133/84, pulse ox 95% on room air. WBC 5.3, hemoglobin 10.7, platelet count 252. Sodium 134, potassium 3.2, chloride 93, CO2 33, BUN 25 and creatinine 1.09. Blood sugar 94. Lactic acid 1.5. Troponin negative. Total bilirubin 1, AST 234, ALT 70, alkaline phosphatase 60. Urinalysis clear with leukoesterase small. COVID-19 not detected. CAT scan of the brain revealed mild cerebral atrophy appropriate for age. No acute intracranial abnormality. No adverse change. Chest x-ray reveals diffuse interstitial pattern correlate for interstitial pneumonitis versus venous congestion. Repeat chest x-ray this morning reveals persistent interstitial changes correlate for interstitial pneumonitis slightly improved. Patient admitted to the [facility] floor and started on azithromycin and Zosyn, consult with pulmonary medicine, oncology, neurology and psychiatry. Nursing staff states the patient had hallucinations through the night and morning. This morning he was very combative and hitting staff. Patient was very confused. Haldol given and patient called. Patient is normally very cooperative. 09/29: Patient has been seen by pulmonary medicine with plan to continue current medications regarding residual Covid 19 pneumonia. Patient also seen by psychiatry for metabolic encephalopathy with hallucinations with recommendations for Seroquel 50 mg at bedtime, Zyprexa 5 mg IM 3 times daily as needed for agitation, decrease Cymbalta to 30 mg twice daily and continue trazodone may consider discontinuing. Patient has been afebrile since admission, heart rate 79, blood pressure 131/77, pulse ox 99% on 2 L. Blood sugars running between 107 and 231. D-dimer 2.1. Blood culture is no growth at 24 hours 3 specimens. Patient's mental status and behavior has been improved over the night. Patient's nurse found him in the bathroom this morning with a butter knife and he was not sure why he had it but he was not using against anyone. Patient is utilizing walker in his room. He states he does see a few blocks but then those were gone and this occurred during evaluation. Patient understands the need to take medications as corrected disease will help with his hallucinations. REVIEW OF SYSTEMS Constitutional: Denies fever, denies chills, no night sweats. No weight change. Reported weakness, reported fatigue reported lethargy. Reported daytime sleep iness. EENT: No headache. No nasal drainage or congestion. No sore throat. Lungs: No shortness of breath, cough, no sputum production. No wheezing. Cardiovascular: No chest pain, no lower extremity edema. No syncopal episodes. Abdominal: No abdominal pain. No nausea, vomiting. No diarrhea. No constipation. No bloody or tarry stools reported loss of appetite. Reported decreased oral intake Genitourinary: Reported dysuria, increased frequency, urgency. No urinary retention. Musculoskeletal: No myalgias. Reported muscle weakness, chronic gait dysfunction, no frequent falls. Chronic back pain. No neck pain. Integumentary: No wounds, no lesions. No rash or pruritus. Neurologic: No aphasia. No facial droop. Reported change in mentation- improving. No head injury. No headache. No paralysis. No paresthesia. Psychiatric: No depression. No anxiety. Reported hallucinations-improving. Endocrine: No abnormal blood sugars. PHYSICAL EXAMINATION Gen: This is a 54-year-old male. Patient is seen in the bathroom. His mental status is improved. He is able to communicate clearly and understands treatment plan. He is cooperative. HEENT: Head is atraumatic, normocephalic. Pupils equal, round. Sclerae is anicteric. NECK: Supple. No JVD. No lymphadenopathy. No thyromegaly. LUNGS: Clear to auscultation. Diminished in the bases. No wheezes or rhonchi. No intercostal retractions. HEART: Regular rate and rhythm. No murmur. ABDOMEN: Soft. Bowel sounds are present. No masses. No tenderness. EXTREMITIES: No pedal edema. No calf tenderness. NEUROLOGICAL: Patient is awake, alert and oriented to self and place. Speech is clear. Cranial nerves 2 through 12 are grossly intact. ASSESSMENT AND PLAN 1. Metabolic encephalopathy with hallucinations with concerns for metastatic disease to the brain. Consult in place with neurology, psychiatry. EEG ordered. 2. Pneumonia, possible gram-negative pneumonia, most likely residual Covid 19 pneumonia. Blood culture has been obtained. Sputum culture ordered. Consult with pulmonary medicine. Continue azithromycin, Zosyn, Mucinex. 3. Paranoia and hallucinations. Consult with psychiatry and above recommendations have been started. 4. History of non-small cell lung cancer status post right middle lobe lobectomy. Consult with Dr. Salcedo is appreciated. Patient is supposed to have follow-up in the office for PET scan no recurrence and no metastasis disease on previous imaging. 5. Chronic pain under the care of Dr. Parker. Pain pump is in place. Lorena nue fentanyl patch 75 g 1 every 72 hours, Robaxin 750 mg twice daily, morphine 20 mg every 4 hours as needed. 6. History of CVA 3 with residual left-sided paraplegia. Continue aspirin, Lipitor. 7. Hypertension. Continue Catapres 0.1 mg 3 times daily as needed, Lasix 40 mg twice daily, Lopressor 25 mg 3 times daily. 8. Hyperlipidemia. Continue atorvastatin. 9. Diabetes mellitus type 2. Continue NovoLog 6 units with meals, Tradjenta 5 mg daily, metformin 1000 mg twice daily, NovoLog scale before meals and at bedtime 10. Diabetic neuropathy. Continue trazodone. 11. History of coronary artery disease status post stent in the mid RCA. Continue aspirin 81 mg daily, Lipitor 80 mg at bedtime. 12. Restless leg syndrome. Continue Requip 3 mg 3 times daily. 13. Seizure disorder. Continue Depakote 500 mg 3 times daily, Keppra 1500 mg at 9 AM and 9 PM, 751 g at 2 PM. 14. GI prophylaxis and gastroesophageal reflux disease. Continue Pepcid 20 mg twice daily. DISCHARGE PLAN Return to [facility]. Impression and plan of care have been directed as dictated by the signing physician. Eleonora Almeida nurse practitioner acting as scribe for signing ph ysician. Objective - Vital Signs Vital signs: Vital Signs Temp 97.6 F 09/29/20 04:14 Pulse 76 09/29/20 07:28 Resp 18 09/29/20 04:14 BP 131/77 09/29/20 04:14 Pulse Ox 99 09/29/20 04:14 Intake & Output 09/28/20 09/29/20 09/29/20 18:59 06:59 18:59 Intake Total 800 100 Balance 800 100 Intake: Intake, IV Titration 100 Amount Piperacillin-Tazobactam 3 100 .375 gm In Sodium Chloride 0.9% 100 ml @ 25 mls/hr IVPB Q8HR [facility] Rx# :[id number] Oral 800 Other: Voiding Method Bedside Commode Bedside Commode # Voids 2 2 # Bowel Movements 2 1 - Labs CBC & Chem 7: 09/27/20 12:03 09/28/20 06:39 Labs: Abnormal Lab Results - Last 24 Hours (Table) 09/28/20 09/28/20 09/28/20 Range/Units 06:39 06:39 06:39 ESR 39 H (0-20) mm/Hr Retic Count 2.5 H (0.5-2.0) % D-Dimer (<0.60) mg/L FEU Carbon Dioxide 36.3 H (21.6-31.8) mmol/L BUN/Creatinine Ratio 24.00 H (12.00-20.00) Ratio Glucose 118 H (70-110) mg/dL POC Glucose (mg/dL) (75-99) mg/dL Calcium 8.1 L (8.7-10.3) mg/dL Iron 18 L (65-175) ug/dL % Saturation 7.41 L (15.00-50.00) Ferritin 341.3 H (22.0-322.0) ng/mL Total Protein (PEP) (6.2-8.2) g/dL 09/28/20 09/28/20 09/28/20 Range/Units 06:39 10:55 12:03 ESR (0-20) mm/Hr Retic Count (0.5-2.0) % D-Dimer 2.10 H (<0.60) mg/L FEU Carbon Dioxide (21.6-31.8) mmol/L BUN/Creatinine Ratio (12.00-20.00) Ratio Glucose (70-110) mg/dL POC Glucose (mg/dL) 175 H (75-99) mg/dL Calcium (8.7-10.3) mg/dL Iron (65-175) ug/dL % Saturation (15.00-50.00) Ferritin (22.0-322.0) ng/mL Total Protein (PEP) 5.5 L (6.2-8.2) g/dL 09/28/20 09/28/20 09/29/20 Range/Units 17:05 20:32 07:29 ESR (0-20) mm/Hr Retic Count (0.5-2.0) % D-Dimer (<0.60) mg/L FEU Carbon Dioxide (21.6-31.8) mmol/L BUN/Creatinine Ratio (12.00-20.00) Ratio Glucose (70-110) mg/dL POC Glucose (mg/dL) 231 H 130 H 107 H (75-99) mg/dL Calcium (8.7-10.3) mg/dL Iron (65-175) ug/dL % Saturation (15.00-50.00) Ferritin (22.0-322.0) ng/mL Total Protein (PEP) (6.2-8.2) g/dL Microbiology - Last 24 Hours (Table) 09/27/20 15:25 Blood Culture - Preliminary Blood No Growth after 24 hours 09/27/20 14:38 Blood Culture - Preliminary Blood No Growth after 24 hours 09/27/20 12:03 Blood Culture - Preliminary Blood No Growth after 24 hours
[2020-09-29 11:19] LABS: Glucose,Whole Blood 137 mg/dL (75-99)
[2020-09-29 12:24] LABS: Free Kappa Lt Chain Qnt, Serum 1.95 mg/dL (0.33-1.94)
--- NOTE | 2020-09-29 12:30 | P.PN ---
Progress Note - Text Progress Note Date: 09/29/20 Interval History: Patient was seen thing in bed undergoing a breathing treatment and was directable and agreeable to speak with the senior mortgage underwriter. Patient is currently not endorsing any suicidal or homicidal ideation, intention, and/or plan. He is not reporting any paranoia or delusions. He was noted by nursing staff to be somewhat paranoid and was found in his washroom holding a butter knife because he was scared. The patient admits this did occur and states that he was not in the right frame of mind. He is currently not reporting any issues with sleep or appetite. He denies any side effects of his medications and appears to be tolerating them well. Mental Status Exam: General Appearance: Patient appears to be stated age is alert, pleasant, and cooperative. Patient appears to have fair hygiene and grooming wearing hospital gown with fair eye contact. Obese body habitus. Behavior: Patient is calmly lying in bed without any agitated behavior. Psychomotor activity appears normal. Speech: Patient's speech is fluent and nonpressured. Mood/Affect: Patient reports their mood is "doing okay", affect is odd but with otherwise normal range. Suicidality/Homicidality: Patient denies having any suicidal or homicidal ideation intent or plan. Perceptions: Patient denies any visual hallucinations but reports some auditory hallucinations. Though content/process: Patient does admit to some paranoia. Conversation is linear and logical in short conversation today. Memory and concentration: AOX3, grossly intact for the purposes of this session. Can spell "WORLD" backwards Judgment and insight: Poor Assessment Metabolic encephalopathy with hallucinations -Multiple etiologies may may be contributing to his current presentation including active infection with pneumonia, history of dexamethasone, possible metastases to the brain, polypharmacy. Psychosis, unspecified Plan: -At this time patient DOES NOT meet criteria for inpatient psychiatric admission. Patient will need to be thoroughly evaluated and treated for causes of delirium before he meets criteria for an inpatient psychiatric admission. -Delirium precautions recommended with patient including - avoiding use of narcotics and GYM SUPERVISOR sedatives, limit anticholinergic medications when possible, frequent re-orientation, minimize use of restraints, open window shades during the day and close them at night -Would recommend the following medication changes/additions: -We will increase Seroquel to 100 mg by mouth at bedtime. -We will start Zyprexa 5 mg IM 3 times a day when necessary for agitation. -Continue Cymbalta 30 mg by mouth twice a day for depression. -We will taper trazodone to 50 by mouth at bedtime and discontinue the medication tomorrow. -May continue melatonin 10 mg by mouth at bedtime for insomnia. -Will continue to follow along
--- NOTE | 2020-09-29 12:44 | P.PN ---
Subjective Progress Note Date: 09/29/20 Principal diagnosis: Acute hypoxic respiratory failure secondary to residual Coumadin to pneumonitis This is a 54-year-old gentleman who resides in extended care facility. He has a history of coronary artery disease with previous stent placement, COPD, diabetes mellitus, hypertension, hyperlipidemia, seizure disorder. He also has a history of squamous cell lung cancer with previous right middle lobectomy done at [facility]. He follows with Dr. Sosa. ([id number]). He has had ongoing right thoracotomy pain since surgery and is seen at the pain clinic. He also has had multiple back surgeries and pain stimulators in place subsequently removed. He has been residing at [facility] on the [place] since February 2019. He reportedly did have CoVID 19 on 08/25/2020 and treated with dexamethasone and antivirals. He was brought into the emergency room after being felt to have increasing weakness, fevers. CT scan of the brain revealed mild cerebral atrophy appropriate for age. No acute intracranial abnormalities. White count 5.3. Hemoglobin 10.7. D-dimer 2.10. Sodium 139. Potassium 3.5. Creatinine 1.0. Glucose 20.20. Gibbs virus not detected. Influenza A/B not detected. Blood gases were obtained on 21% FiO2 with a pO2 of 53, pCO2 57, pH 7.37. We're consulted for the same. He is seen today in consultation on the regular medical floor. He was somewhat agitated, hallucinating and restless. He tried to hit at staff. A Mr. Vila was called on him earlier today. He was treated with Haldol. Psychiatric services are on the case. He is maintaining good O2 saturations up to 100% on 2 L/m per nasal cannula. He did have a T-max of 101.7. Currently afebrile. Chest x-ray shows interstitial changes suspicious for interstitial pneumonitis. He is currently on Zosyn and azithromycin. The patient is seen today 09/29/2020 in follow-up on the regular medical floor. He is currently sitting up in bed. Awake and alert in no acute distress. Doing quite a bit better today compared to yesterday. Currently cooperative. Denies any worsening shortness of breath, cough or congestion. He is maintaining O2 saturations in the high 90s on room air. He's afebrile. Hemodynamically stable. Blood cultures revealed no growth. Glucose 137. Remains on bronchodilators, Zithromax, Zosyn. Objective - Vital Signs Vital signs: Vital Signs Temp 97.9 F 09/29/20 11:35 Pulse 76 09/29/20 12:27 Resp 17 09/29/20 11:35 BP 126/70 09/29/20 11:35 Pulse Ox 98 09/29/20 11:35 Intake & Output 09/28/20 09/29/20 09/29/20 18:59 06:59 18:59 Intake Total 800 100 Balance 800 100 Intake: Intake, IV Titration 100 Amount Piperacillin-Tazobactam 3 100 .375 gm In Sodium Chloride 0.9% 100 ml @ 25 mls/hr IVPB Q8HR [facility] Rx# :[id number] Oral 800 Other: Voiding Method Bedside Commode Bedside Commode Bedside Commode # Voids 2 2 # Bowel Movements 2 1 - Exam GENERAL EXAM: Alert, 54-year-old gentleman, on room air, somewhat slow to respond, appears comfortable in no apparent distress. HEAD: Normocephalic. EYES: Normal reaction of pupils, equal size. NOSE: Clear with pink turbinates. THROAT: No erythema or exudates. NECK: No masses, no JVD. CHEST: No chest wall deformity. LUNGS: Equal air entry with no crackles, wheeze, rhonchi or dullness. CVS: S1 and S2 normal with no audible murmur, regular rhythm. ABDOMEN: No hepatosplenomegaly, normal bowel sounds, no guarding or rigidity. SPINE: No scoliosis or deformity SKIN: No rashes CENTRAL NERVOUS SYSTEM: History of dementia, tone is normal in all 4 extremities. EXTREMITIES: There is no peripheral edema. No clubbing, no cyanosis. Peripheral pulses are intact. - Labs CBC & Chem 7: 09/27/20 12:03 09/28/20 06:39 Labs: Abnormal Lab Results - Last 24 Hours (Table) 09/28/20 09/28/20 09/28/20 Range/Units 06:39 06:39 06:39 ESR 39 H (0-20) mm/Hr Haptoglobin 234.0 H (31.2-198.0) mg/dL POC Glucose (mg/dL) (75-99) mg/dL Iron 18 L (65-175) ug/dL % Saturation 7.41 L (15.00-50.00) Ferritin 341.3 H (22.0-322.0) ng/mL Total Protein (PEP) 5.5 L (6.2-8.2) g/dL Free [place] LC, Quant 1.95 H (0.33-1.94) mg/dL 09/28/20 09/28/20 09/29/20 Range/Units 17:05 20:32 07:29 ESR (0-20) mm/Hr Haptoglobin (31.2-198.0) mg/dL POC Glucose (mg/dL) 231 H 130 H 107 H (75-99) mg/dL Iron (65-175) ug/dL % Saturation (15.00-50.00) Ferritin (22.0-322.0) ng/mL Total Protein (PEP) (6.2-8.2) g/dL Free [place] LC, Quant (0.33-1.94) mg/dL 09/29/20 Range/Units 11:18 ESR (0-20) mm/Hr Haptoglobin (31.2-198.0) mg/dL POC Glucose (mg/dL) 137 H (75-99) mg/dL Iron (65-175) ug/dL % Saturation (15.00-50.00) Ferritin (22.0-322.0) ng/mL Total Protein (PEP) (6.2-8.2) g/dL Free [place] LC, Quant (0.33-1.94) mg/dL Microbiology - Last 24 Hours (Table) 09/27/20 15:25 Blood Culture - Preliminary Blood No Growth after 24 hours 09/27/20 14:38 Blood Culture - Preliminary Blood No Growth after 24 hours 09/27/20 12:03 Blood Culture - Preliminary Blood No Growth after 24 hours Assessment and Plan Assessment: 1 Acute hypoxic respiratory failure with a pO2 of 53 on arterial blood gases on 21% FiO2 suspect residual COVID 19 pneumonitis. Tested positive 08/25/2020 at [facility]. Treated with dexamethasone. 2 Altered mental status secondary to above 3 Febrile illness of unclear etiology 3 History of dementia, agitated, restless, swinging at staff. Required Haldol. Psychiatric services consulted. 4 History of non-small cell cancer of the right lung status post right middle lobe lobectomy 5 History of CVA with residual left-sided paraplegia 6 Hyperlipidemia 7 Hypertension 8 Coronary artery disease with previous stent placement 9 History of seizures 11 Diabetes mellitus, type II 12 Obesity 13 History of alcohol abuse Plan: The patient was seen and evaluated by Dr. Montalvo He is stable from the pulmonary standpoint, on room air Okay to discharge to [facility] once cleared medically I, the cosigning physician, performed a history & physical examination of the patient. Lungs sounds clear. Maintaining good O2 saturations in the 90s on room air. I discussed the assessment and plan of care with my nurse practitioner, Leighann Arreguin. I attest to the above consultation as dictated by her.
[2020-09-29] MEDS: CYANOCOBALAMIN 500 MCG TAB PO SCH (13:57)
[2020-09-29 16:55] LABS: Glucose,Whole Blood 86 mg/dL (75-99)
[2020-09-29 20:30] LABS: Glucose,Whole Blood 104 mg/dL (75-99)
[2020-09-29] MEDS ORDERED: QUEtiapine 100 MG TAB PO SCH (21:00)
[2020-09-29] MEDS ORDERED: traZODone HCL 50 MG TAB PO SCH (21:00)
[2020-09-29] MEDS: MELATONIN 5 MG TABLET PO SCH (21:40)
[2020-09-29] MEDS: PREGABALIN 75 MG CAP PO SCH (21:41)
[2020-09-29] MEDS: ATORVASTATIN 80 MG TAB PO SCH (21:41)
[2020-09-29] MEDS: MONTELUKAST 10 MG TAB PO SCH (21:47)
[2020-09-30] MEDS: PIPERACILLIN-TAZOBACTAM 3.375 GM in SODIUM CHLORIDE 0.9% 100 ML IVPB SCH ×2 (00:33→09:21)
[2020-09-30] MEDS: METOPROLOL TARTRATE 25 MG TAB PO SCH (06:09)
[2020-09-30 07:14] LABS: Glucose,Whole Blood 103 mg/dL (75-99)
[2020-09-30] MEDS: IPRATROPIUM-ALBUTEROL 3 ML NEB INHALATION SCH (07:20)
[2020-09-30 07:57] LABS: HGB 9.7 gm/dL (13.0-17.5); MCH 28.7 pg (25.0-35.0); MCHC 33.3 g/dL (31.0-37.0); MCV 86.2 fL (80.0-100.0); Mean Platelet Volume 7.2; Platelet Count 275 k/uL (150-450); RBC 3.36 m/uL (4.30-5.90); RDW 14.5 % (11.5-15.5); WBC 4.6 k/uL (3.8-10.6)
[2020-09-30] MEDS: INSULIN ASPART (NovoLOG) 100 UNIT/ML VIAL SQ SCH ×2 (07:57→09:36)
[2020-09-30 08:17] LABS: ALT 63 U/L (4-49); AST 121 U/L (17-59); African American GFR (CKD) >90 (>60 ml/min/1.73 sqM); Albumin 2.8 g/dL (3.5-5.0); Alkaline Phosphatase 55 U/L (38-126); Blood Urea Nitrogen 9 mg/dL (9-20); Calcium 8.4 mg/dL (8.4-10.2); Chloride 98 mmol/L (98-107); Globulin 2.7 g/dL; Glucose 101 mg/dL (74-99); Non-African American GFR(CKD) >90 (>60 ml/min/1.73 sqM); Potassium 3.9 mmol/L (3.5-5.1); Sodium 142 mmol/L (137-145); Total Bilirubin 0.6 mg/dL (0.2-1.3); Total Protein 5.5 g/dL (6.3-8.2)
[2020-09-30 08:24] LABS: Anion Gap 5 mmol/L; Carbon Dioxide 39 mmol/L (22-30)
[2020-09-30] MEDS: FAMOTIDINE 20 MG TAB PO SCH (09:20)
[2020-09-30] MEDS: guaiFENesin 600 MG TABLET.ER PO SCH (09:20)
[2020-09-30] MEDS: POTASSIUM CHLORIDE ER 20 MEQ TAB.ER PO SCH (09:20)
[2020-09-30] MEDS: DIVALPROEX 500 MG TABLET.DR PO SCH (09:20)
[2020-09-30] MEDS: metFORMIN 500 MG TAB PO SCH (09:20)
[2020-09-30] MEDS: ASPIRIN 81 MG PO SCH (09:20)
[2020-09-30] MEDS: FUROSEMIDE 40 MG TAB PO SCH (09:20)
[2020-09-30] MEDS: CYANOCOBALAMIN 500 MCG TAB PO SCH (09:21)
[2020-09-30] MEDS: DULoxetine HCL 30 MG CAPSULE.DR PO SCH (09:21)
[2020-09-30] MEDS: HEPARIN SODIUM,PORCINE 5,000 UNIT/ML 1 ML VIAL SQ SCH (09:21)
[2020-09-30] MEDS: methocarbamoL 750 MG TAB PO SCH (09:23)
[2020-09-30] MEDS: MIDODRINE 5 MG TAB PO SCH (09:23)
[2020-09-30] MEDS: LINAGLIPTIN 5 MG TABLET PO SCH (09:24)
--- NOTE | 2020-09-30 10:10 | P.DS ---
Providers Date of admission: 09/27/20 14:38 Expected date of discharge: 09/30/20 Attending physician: Cal Handy Consults: 09/27/20 18:21 Consult Physician Routine Consulting Provider: Amado Carranza Consult Reason/Comments: lethargy Do you want consulting provider notified?: Yes 09/27/20 18:23 Consult Physician Routine Consulting Provider: Andrew Salcedo Consult Reason/Comments: Hx. of metastatic Lung Cancer Do you want consulting provider notified?: Yes 09/27/20 20:09 Consult Physician Stat Consulting Provider: Nadira Montalvo Consult Reason/Comments: pneumonia Do you want consulting provider notified?: Yes 09/28/20 09:10 Consult Physician Routine Consulting Provider: Joseph Quevedo Consult Reason/Comments: mental status change, paranoia, ?mets Do you want consulting provider notified?: Yes Primary care physician: Radha Ortiz [facility] Course: HISTORY OF PRESENT ILLNESS This is a 54-year-old morbidly obese male who resides at [facility] in the [place] under the care of Dr. Ortiz. Patient also follows with Dr. Parker due to chronic pain with pain pump in place. He also has history of seizure disorder, CVA 3 with left-sided weakness and significant decreased mobility, history of hypertension, diabetes mellitus type II, hyperlipidemia, coronary artery disease with previous stent to the mid RCA, squamous cell lung cancer status post right middle lobe lobectomy. Patient had hallucinations about 2 weeks ago and Seroquel was started increased to 50 mg. 2 days ago, patient was diagnosed with a Klebsiella UTI that was pansensitive and started on Ceftin and received 2 doses. For the past 2-3 days he has not been eating or drinking. He's had increasing confusions. He has been going into other patient's rooms which is unusual for him. Patient was also treated for COVID-19 pneumonia on August 25 with Bamlanivimab, dexamethasone and antibiotics at the time. Patient presented to [facility] emergency center. Patient was febrile with a temperature 101.7, heart rate 91, blood pressure 133/84, pulse ox 95% on room air. WBC 5.3, hemoglobin 10.7, platelet count 252. Sodium 134, potassium 3.2, chloride 93, CO2 33, BUN 25 and creatinine 1.09. Blood sugar 94. Lactic acid 1.5. Troponin negative. Total bilirubin 1, AST 234, ALT 70, alkaline phosphatase 60. Urinalysis clear with leukoesterase small. COVID-19 not detected. CAT scan of the brain revealed mild cerebral atrophy appropriate for age. No acute intracranial abnormality. No adverse change. Chest x-ray reveals diffuse interstitial pattern correlate for interstitial pneumonitis versus venous congestion. Repeat chest x-ray this morning reveals persistent interstitial changes correlate for interstitial pneumonitis slightly improved. Patient admitted to the [facility] floor and started on azithromycin and Zosyn, consult with pulmonary medicine, oncology, neurology and psychiatry. Nursing staff states the patient had hallucinations through the night and morning. This morning he was very combative and hitting staff. Patient was very confused. Haldol given and patient called. Patient is normally very cooperative. 09/29: Patient has been seen by pulmonary medicine with plan to continue current medications regarding residual Covid 19 pneumonia. Patient also seen by psychiatry for metabolic encephalopathy with hallucinations with recommendations for Seroquel 50 mg at bedtime, Zyprexa 5 mg IM 3 times daily as needed for agitation, decrease Cymbalta to 30 mg twice daily and continue trazodone may consider discontinuing. Patient has been afebrile since admission, heart rate 79, blood pressure 131/77, pulse ox 99% on 2 L. Blood sugars running between 107 and 231. D-dimer 2.1. Blood culture is no growth at 24 hours 3 specimens. Patient's mental status and behavior has been improved over the night. Patient's nurse found him in the bathroom this morning with a butter knife and he was not sure why he had it but he was not using against anyone. Patient is utilizing walker in his room. He states he does see a few blocks but then those were gone and this occurred during evaluation. Patient understands the need to take medications as corrected disease will help with his hallucinations. 09/30: Psychiatry has rechecked patient and increase Seroquel to 100 mg at bedtime, continue Zyprexa, continue Cymbalta at 30 mg twice daily. Plan to taper trazodone to 50 mg at bedtime and discontinue today. Okay to continue melatonin. Patient's mental status appears to be back to baseline. Patient states he is feeling much better. He has been afebrile, heart rate 75, blood pressure 152/89, pulse ox 94% on room air. WBC 4.6, hemoglobin 9.7. Creatinine 0.7, CO2 39. Blood sugars run between 101 104. Total bilirubin 0.6, AST 121, ALT 63, alkaline phosphatase 55. Patient will be discharged back to [facility] today in stable condition. ASSESSMENT AND PLAN 1. Metabolic encephalopathy with hallucinations. 2. Pneumonia, possible gram-negative pneumonia, most likely residual Covid 19 pneumonia. 3. Paranoia and hallucinations. 4. History of non-small cell lung cancer status post right middle lobe lobectomy. 5. Chronic pain under the care of Dr. Parker. Pain pump is in place. 6. History of CVA 3 with residual left-sided paraplegia. 7. Hypertension. 8. Hyperlipidemia. 9. Diabetes mellitus type 2. 10. Diabetic neuropathy. 11. History of coronary artery disease status post stent in the mid RCA. 12. Restless leg syndrome. 13. Seizure disorder. 14. Gastroesophageal reflux disease. DISCHARGE PLAN Return to [facility]. Impression and plan of care have been directed as dictated by the signing physician. Eleonora Almeida nurse practitioner acting as scribe for signing physician. Patient Condition at Discharge: Good Plan - Discharge Summary New Discharge Prescriptions: New traZODone HCL [Desyrel] 50 mg PO HS tab QUEtiapine [SEROquel] 100 mg PO HS tab Cyanocobalamin [Vitamin B-12] 500 mcg PO DAILY tab Azithromycin [Zithromax] 500 mg PO DAILY@1200 #5 tab Amoxicillin/Potassium Clav [Augmentin 875-125 Tablet] 1 tab PO BID 5 Days #10 tab Continue levETIRAcetam [Keppra] 750 mg PO DAILY@1400 Acetaminophen [Tylenol] 650 mg PO Q6H PRN PRN Reason: Pain Or Fever > 100.5 Insulin Glargine,Hum.rec.anlog [Basaglar Kwikpen U-100] 30 unit SQ HS Linagliptin [Tradjenta] 5 mg PO DAILY Midodrine HCl [ProAmatine] 10 mg PO TID@0900,1300,1800 rOPINIRole HCL [Requip] 3 mg PO TID@0600,1400,2200 Divalproex Sodium [Depakote] 500 mg PO TID@0900,1300,2100 DULoxetine HCL [Cymbalta] 60 mg PO BID Ergocalciferol [Vitamin D2 (DRISDOL)] 50,000 units PO ANDERSON Montelukast [Singulair] 10 mg PO HS Famotidine [Pepcid] 20 mg PO BID Melatonin 10 mg PO HS Aspirin 81 mg PO DAILY Azelastine HCl 2 spray EA NOSTRIL BID PRN PRN Reason: Allergy Symptoms bisacodyL [Bisacodyl] 10 mg RECTAL DAILY PRN PRN Reason: Constipation guaiFENesin [Mucinex] 600 mg PO BID Potassium Chloride [K-Tab ER] 20 meq PO DAILY Magnesium Hydroxide [Milk of Magnesia] 2,400 mg PO DAILY PRN PRN Reason: Constipation Methocarbamol [Robaxin-750] 750 mg PO BID@0900,1700 Insulin Aspart [NovoLOG Flexpen] See Protocol SQ AC-TID Insulin Aspart [NovoLOG Flexpen] 6 units SQ AC-TID levETIRAcetam [Keppra] 1,500 mg PO BID@0900,2100 Atorvastatin [Lipitor] 80 mg PO HS #0 tab Nitroglycerin Sl Tabs [Nitrostat] 0.4 mg SUBLINGUAL Q5M PRN #0 tab PRN Reason: Chest Pain metFORMIN HCL 1,000 mg PO BID@0800,1700 #0 cloNIDine HCL [Catapres] 0.1 mg PO TID PRN PRN Reason: SBP>160 Furosemide [Lasix] 40 mg PO BID@0900,1400 polyethylene glycoL 3350 [Miralax] 17 gm PO DAILY PRN PRN Reason: Constipation Metoprolol Tartrate [Lopressor] 25 mg PO TID@0600,1400,2200 fentaNYL 75MCG/HR PATCH [Duragesic 75MCG/HR] 1 patch TRANSDERM Q72H #1 patch Pregabalin [Lyrica] 225 mg PO BID #6 cap MORPHINE ORAL APOLLO 2mg/mL [Morphine Oral Soln 2 MG/ML] 20 mg PO Q4H PRN #90 ml PRN Reason: Pain Discontinued QUEtiapine FUMARATE [SEROquel] 12.5 mg PO AC-SUPPER@1700 traZODone HCL 150 mg PO HS Cefuroxime [Ceftin] 250 mg PO BID Discharge Medication List levETIRAcetam [Keppra] 750 mg PO DAILY@1400 03/28/19 [History] Acetaminophen [Tylenol] 650 mg PO Q6H PRN 05/30/19 [History] Insulin Glargine,Hum.rec.anlog [Basaglar Kwikpen U-100] 30 unit SQ HS 05/30/19 [History] Linagliptin [Tradjenta] 5 mg PO DAILY 05/30/19 [History] Midodrine HCl [ProAmatine] 10 mg PO TID@0900,1300,1800 05/30/19 [History] rOPINIRole HCL [Requip] 3 mg PO TID@0600,1400,2200 05/30/19 [History] DULoxetine HCL [Cymbalta] 60 mg PO BID 07/21/19 [History] Divalproex Sodium [Depakote] 500 mg PO TID@0900,1300,2100 07/21/19 [History] Ergocalciferol [Vitamin D2 (DRISDOL)] 50,000 units PO ANDERSON 07/21/19 [History] Montelukast [Singulair] 10 mg PO HS 07/21/19 [History] Famotidine [Pepcid] 20 mg PO BID 11/20/19 [History] Melatonin 10 mg PO HS 11/20/19 [History] Aspirin 81 mg PO DAILY 02/12/20 [History] Azelastine HCl 2 spray EA NOSTRIL BID PRN 02/12/20 [History] Potassium Chloride [K-Tab ER] 20 meq PO DAILY 02/12/20 [History] bisacodyL [Bisacodyl] 10 mg RECTAL DAILY PRN 02/12/20 [History] guaiFENesin [Mucinex] 600 mg PO BID 02/12/20 [History] Insulin Aspart [NovoLOG Flexpen] 6 units SQ AC-TID 05/03/20 [History] Insulin Aspart [NovoLOG Flexpen] See Protocol SQ AC-TID 05/03/20 [History] Magnesium Hydroxide [Milk of Magnesia] 2,400 mg PO DAILY PRN 05/03/20 [History] Methocarbamol [Robaxin-750] 750 mg PO BID@0900,1700 05/03/20 [History] levETIRAcetam [Keppra] 1,500 mg PO BID@0900,2100 05/03/20 [History] Atorvastatin [Lipitor] 80 mg PO HS #0 tab 05/07/20 [Rx] Nitroglycerin Sl Tabs [Nitrostat] 0.4 mg SUBLINGUAL Q5M PRN #0 tab 05/07/20 [Rx] metFORMIN HCL 1,000 mg PO BID@0800,1700 #0 05/07/20 [Rx] Furosemide [Lasix] 40 mg PO BID@0900,1400 09/06/20 [History] Metoprolol Tartrate [Lopressor] 25 mg PO TID@0600,1400,2200 09/06/20 [History] cloNIDine HCL [Catapres] 0.1 mg PO TID PRN 09/06/20 [History] polyethylene glycoL 3350 [Miralax] 17 gm PO DAILY PRN 09/06/20 [History] Amoxicillin/Potassium Clav [Augmentin 875-125 Tablet] 1 tab PO BID 5 Days #10 tab 09/30/20 [Rx] Azithromycin [Zithromax] 500 mg PO DAILY@1200 #5 tab 09/30/20 [Rx] Cyanocobalamin [Vitamin B-12] 500 mcg PO DAILY tab 09/30/20 [Rx] MORPHINE ORAL APOLLO 2mg/mL [Morphine Oral Soln 2 MG/ML] 20 mg PO Q4H PRN #90 ml 09/30/20 [Rx] Pregabalin [Lyrica] 225 mg PO BID #6 cap 09/30/20 [Rx] QUEtiapine [SEROquel] 100 mg PO HS tab 09/30/20 [Rx] fentaNYL 75MCG/HR PATCH [Duragesic 75MCG/HR] 1 patch TRANSDERM Q72H #1 patch 09/30/20 [Rx] traZODone HCL [Desyrel] 50 mg PO HS tab 09/30/20 [Rx] Follow up Appointment(s)/Referral(s): Radha Ortiz MD [Primary Care Provider] - 1 Week ([facility] )
[2020-09-30 11:04] VITALS: BP 145/81; PULSE 118; RESP 19; TEMP 98.7
[2020-09-30 14:03] LABS: Albumin 2.62 g/dL (3.80-4.90); Gamma Globulin 0.69 g/dL (0.70-1.50)
--- NOTE | 2020-09-30 14:17 | P.PN ---
Subjective Progress Note Date: 09/30/20 Principal diagnosis: pneumonitis, Hx lung cancer, s/p surgery Pt doing well today, waiting for DC. He is eating and drinking, breathing is stable, no pain to report. Objective - Vital Signs Vital signs: Vital Signs Temp 98.7 F 09/30/20 11:00 Pulse 118 H 09/30/20 11:00 Resp 19 09/30/20 11:00 BP 145/81 09/30/20 11:00 Pulse Ox 94 L 09/30/20 11:00 Intake & Output 09/29/20 09/30/20 09/30/20 18:59 06:59 18:59 Other: Voiding Method Bedside Commode Toilet Toilet # Voids 2 # Bowel Movements 1 - Constitutional General appearance: Present: cooperative, no acute distress, obese - EENT Eyes: Present: anicteric sclerae, EOMI ENT: Present: hearing grossly normal - Respiratory Details: resp even and unlabored - Peripheral edema leg Peripheral Edema: bilateral: Trace - Neurologic Neurologic: Present: CNII-XII intact - Musculoskeletal Musculoskeletal: Present: strength equal bilaterally - Psychiatric Psychiatric: Present: A&O x's 3, appropriate affect, intact judgment & insight - Labs CBC & Chem 7: 09/30/20 07:45 09/30/20 07:45 Labs: Abnormal Lab Results - Last 24 Hours (Table) 09/28/20 09/28/20 09/29/20 Range/Units 06:39 06:39 20:28 RBC (4.30-5.90) m/uL Hgb (13.0-17.5) gm/dL Hct (39.0-53.0) % Carbon Dioxide (22-30) mmol/L Glucose (74-99) mg/dL POC Glucose (mg/dL) 104 H (75-99) mg/dL AST (17-59) U/L ALT (4-49) U/L Total Protein (6.3-8.2) g/dL Albumin (3.5-5.0) g/dL Albumin (PEP) 2.62 L (3.80-4.90) g/dL Clsql-5-[id number] 0.56 H (0.10-0.40) g/dL Gamma Globulins 0.69 L (0.70-1.50) g/dL RBC Folate 898 H (280 - 791) ng/mL 09/30/20 09/30/20 09/30/20 Range/Units 07:07 07:45 07:45 RBC 3.36 L (4.30-5.90) m/uL Hgb 9.7 L (13.0-17.5) gm/dL Hct 29.0 L (39.0-53.0) % Carbon Dioxide 39 H (22-30) mmol/L Glucose 101 H (74-99) mg/dL POC Glucose (mg/dL) 103 H (75-99) mg/dL AST 121 H (17-59) U/L ALT 63 H (4-49) U/L Total Protein 5.5 L (6.3-8.2) g/dL Albumin 2.8 L (3.5-5.0) g/dL Albumin (PEP) (3.80-4.90) g/dL Xiowj-8-Rmiytntfg (0.10-0.40) g/dL Gamma Globulins (0.70-1.50) g/dL RBC Folate (280 - 791) ng/mL Microbiology - Last 24 Hours (Table) 09/29/20 19:44 Gram Stain - Final Sputum Sputum Culture - Final 09/27/20 15:25 Blood Culture - Preliminary Blood No Growth after 48 hours 09/27/20 14:38 Blood Culture - Preliminary Blood No Growth after 48 hours 09/27/20 12:03 Blood Culture - Preliminary Blood No Growth after 48 hours Assessment and Plan (1) Non-small cell cancer of right lung Narrative/Plan: Pt never had f/u scans after surgery. We will plan for those outpt. There is no evidence currently to suggest recurrence. He will f/u with Dr. Sosa after scans. Status: Chronic Priority: Medium Code(s): C34.91 - MALIGNANT NEOPLASM OF UNSP PART OF RIGHT BRONCHUS OR LUNG SNOMED Code(s): 694209188
[2020-10-01 07:18] LABS: Methylmalonic Acid 0.27 umol/L (<0.40)
== END 2020-09-30 12:31 | DRG 177 ==
LOC: EC 10:56 → 6NMEDSUR 14:38
PROVIDERS: ADMIT Internal Medicine Geriatric Medicine; ATTEND Internal Medicine Geriatric Medicine
DX: J15.6 Pneumonia due to other Gram-negative bacteria (principal); G93.41 Metabolic encephalopathy; J96.01 Acute respiratory failure with hypoxia; J12.82 Pneumonia due to coronavirus disease 2019; C34.91 Malignant neoplasm of unspecified part of right bronchus or lung; I69.354 Hemiplegia and hemiparesis following cerebral infarction affecting left non-dominant side; J44.0 Chronic obstructive pulmonary disease with (acute) lower respiratory infection; Z87.891 Personal history of nicotine dependence; E66.01 Morbid (severe) obesity due to excess calories; D64.9 Anemia, unspecified; E11.40 Type 2 diabetes mellitus with diabetic neuropathy, unspecified; E78.5 Hyperlipidemia, unspecified; F03.90 Unspecified dementia, unspecified severity, without behavioral disturbance, psychotic disturbance, mood disturbance, and anxiety; F32.9 Major depressive disorder, single episode, unspecified; G25.81 Restless legs syndrome; G40.909 Epilepsy, unspecified, not intractable, without status epilepticus; G89.29 Other chronic pain; I10 Essential (primary) hypertension; I25.10 Atherosclerotic heart disease of native coronary artery without angina pectoris; I25.2 Old myocardial infarction; B94.8 Sequelae of other specified infectious and parasitic diseases; K21.9 Gastro-esophageal reflux disease without esophagitis; J84.89 Other specified interstitial pulmonary diseases; Z79.4 Long term (current) use of insulin; Z79.82 Long term (current) use of aspirin; Z79.899 Other long term (current) drug therapy; Z82.0 Family history of epilepsy and other diseases of the nervous system; Z82.49 Family history of ischemic heart disease and other diseases of the circulatory system; Z83.2 Family history of diseases of the blood and blood-forming organs and certain disorders involving the immune mechanism; Z99.3 Dependence on wheelchair; Z87.440 Personal history of urinary (tract) infections; Z90.2 Acquired absence of lung [part of]; Z95.5 Presence of coronary angioplasty implant and graft; Z96.89 Presence of other specified functional implants; Z90.49 Acquired absence of other specified parts of digestive tract; F10.11 Alcohol abuse, in remission; R26.9 Unspecified abnormalities of gait and mobility; M19.90 Unspecified osteoarthritis, unspecified site; Z79.891 Long term (current) use of opiate analgesic; Z98.1 Arthrodesis status
CPT/HCPCS: 36415; 51701; 70470; 71045; 71046; 80048; 80053; 81001; 82140; 82607; 82728; 82747; 82805; 83010; 83540; 83550; 83605; 83735; 83880; 83883; 83921; 84145; 84165; 84484; 85025; 85027; 85045; 85379; 85610; 85652; 85730; 86334; 87040; 87070; 87205; 87502; 87635; 93005; 94640; 94760; 96361; 96365; 96367; 96368; 99285

== ENCOUNTER 2020-10-23 06:28 | Emergency (ER) | payer MEDICARE, OTHER ==
[2020-10-23 06:38] VITALS: TEMP 98.4
--- NOTE | 2020-10-23 06:52 | ED ---
General Adult HPI - General Chief complaint: Fall Stated complaint: Fall Time Seen by Provider: 10/23/20 06:39 Source: patient, EMS, RN notes reviewed Mode of arrival: EMS - History of Present Illness Initial comments: Patient is a 55-year-old male presented to the emergency room today by EMS, the chief complaint of fall that occurred this morning. Patient does admit that he was sitting in his chair when he was sleeping for to grab something when he lost balance and fell forward hitting his head. He does admit that he hit the top of his head. He is unsure if he lost consciousness. He states he is not on any blood thinners. Patient states he has had a rehab facility due to history of multiple back surgeries and, lobectomy due to cancer. Patient denies any other injuries or complaints currently. Patient denies any recent fever, chills, shortness of breath, chest pain, back pain, abdominal pain, nausea or vomiting, visual changes, or any other complaints. - Related Data Home Medications Medication Instructions Recorded Confirmed levETIRAcetam [Keppra] 750 mg PO DAILY@1400 03/28/19 10/23/20 Acetaminophen [Tylenol] 650 mg PO Q6H PRN 05/30/19 10/23/20 Insulin Glargine,Hum.rec.anlog 30 unit SQ HS@209905/30/19 10/23/20 [Taishaaglscott Osorio U-100] Linagliptin [Tradjenta] 5 mg PO DAILY@0900 05/30/19 10/23/20 Midodrine HCl [ProAmatine] 10 mg PO TID@0900,1300,1800 05/30/19 10/23/20 rOPINIRole HCL [Requip] 3 mg PO TID@0600,1400,2200 05/30/19 10/23/20 Divalproex Sodium [Depakote] 500 mg PO TID@0900,1300,2100 07/21/19 10/23/20 Ergocalciferol [Vitamin D2 50,000 units PO ANDERSON 07/21/19 10/23/20 (DRISDOL)] Montelukast [Singulair] 10 mg PO HS@2100 07/21/19 10/23/20 Famotidine [Pepcid] 20 mg PO BID@0900,2100 11/20/1910/23/21 Aspirin 81 mg PO DAILY@0902/12/20 10/23/20 Azelastine HCl 2 spray EA NOSTRIL BID PRN 02/12/20 10/23/20 Potassium Chloride [K-Tab ER] 20 meq PO BID@0900,209902/12/20 10/23/20 bisacodyL [Bisacodyl] 10 mg RECTAL DAILY PRN 02/12/20 10/23/20 guaiFENesin [Mucinex] 600 mg PO BID@0900,209902/12/20 10/23/20 Magnesium Hydroxide [Milk of 2,400 mg PO DAILY PRN 05/03/20 10/23/20 Magnesia] Methocarbamol [Robaxin-750] 750 mg PO BID@0900,1700 05/03/20 10/23/20 levETIRAcetam [Keppra] 1,500 mg PO BID@0900,209905/03/20 10/23/20 Furosemide [Lasix] 40 mg PO BID@0600,1200 09/06/20 10/23/20 Metoprolol Tartrate [Lopressor] 25 mg PO TID@0900,1300,209909/06/20 10/23/20 polyethylene glycoL 3350 [Miralax] 17 gm PO DAILY PRN 09/06/20 10/23/20 Atorvastatin [Lipitor] 80 mg PO HS@209910/23/20 10/23/20 Cefuroxime [Ceftin] 250 mg PO BID@0600,1700 10/23/20 10/23/20 Cyanocobalamin [Vitamin B-12] 500 mcg PO DAILY@0900 10/23/20 10/23/20 Insulin Lispro [humaLOG Kwikpen] 6 unit SQ AC-TID 10/23/20 10/23/20 MORPHINE ORAL APOLLO 2mg/mL [Morphine 10 mg PO Q6H PRN 10/23/20 10/23/20 Oral Soln 2 MG/ML] Mag Hydrox/Aluminum Hyd/Simeth 30 ml PO Q4H PRN 10/23/20 10/23/20 [Mylanta Maximum Strength Liq] Melatonin 5 mg PO HS@209910/23/20 10/23/20 Pregabalin [Lyrica] 225 mg PO HS@209910/23/20 10/23/20 QUEtiapine [SEROquel] 25 mg PO DAILY@1700 10/23/20 10/23/20 metFORMIN HCL 1,000 mg PO BID@0900,1700 10/23/20 10/23/20 traZODone HCL [Desyrel] 50 mg PO HS@2100 10/23/20 10/23/20 Previous Rx's Medication Instructions Recorded Nitroglycerin Sl Tabs [Nitrostat] 0.4 mg SUBLINGUAL Q5M PRN #0 tab 05/07/20 Allergies Allergy/AdvReac Type Severity Reaction Status Date / Time baclofen Allergy Unknown Verified 10/23/20 07:32 cyclobenzaprine Allergy Unknown Verified 10/23/20 07:32 [From Flexeril] Review of Systems ROS Statement: Those systems with pertinent positive or pertinent negative responses have been documented in the HPI. ROS Other: All systems not noted in ROS Statement are negative. Past Medical History Past Medical History: Coronary Artery Disease (CAD), Cancer, COPD, Diabetes Mellitus, GERD/Reflux, Hyperlipidemia, Hypertension, Myocardial Infarction ([place]), Osteoarthritis (OA), Seizure Disorder, Sleep Apnea/CPAP/BIPAP Additional Past Medical History / Comment(s): LAST SEIZURE 2018; lumbar radiculopathy; neuropathy; no CPAP needed per recent sleep study, hx. lung cancer, cellulitis of both lower legs 2020 Last Myocardial Infarction Date:: 10/22/10 History of Any Multi-Drug Resistant Organisms: None Reported Past Surgical History: Back Surgery, Cholecystectomy, Heart Catheterization With Stent Additional Past Surgical History / Comment(s): LAMINECTOMY ,fusion,spinal stimulator LEFT SHOULDER sx, 07-31-15 revison thoracic laminectomy t10- t11/removal of neuro stimulator and wires removed, fused L1&2 to a cage fusion that was previously put in to L3,4,5. May 27/2018. lobectomy of right middle lung Past Anesthesia/Blood Transfusion Reactions: No Reported Reaction Date of Last Stent Placement:: 10/22/10 Past Psychological History: Depression Smoking Status: Former smoker Past Alcohol Use History: None Reported Past Drug Use History: None Reported - Past Family History Brother(s) Family Medical History: Deep Vein Thrombosis (DVT) Mother Family Medical History: Osteoarthritis (OA) Additional Family Medical History / Comment(s): psoriases, Parkinsons Father Family Medical History: Coronary Artery Disease (CAD) Additional Family Medical History / Comment(s): heart problems- quad bypass, General Exam - General Exam Comments Initial Comments: General: The patient is awake and alert, in no distress, and does not appear acutely ill. Eye: Pupils are equal, round and reactive to light, extra-ocular movements are intact. No nystagmus. There is normal conjunctiva bilaterally. No signs of icterus. Ears, nose, mouth and throat: There are moist mucous membranes and no oral lesions. Neck: Normal appearance of cervical spinal step-off or deformity. Admits midline. Cardiovascular: There is a regular rate and rhythm. No murmur, rub or gallop is appreciated. Respiratory: Lungs are clear to auscultation, respirations are non-labored, breath sounds are equal. No wheezes, stridor, rales, or rhonchi. Musculoskeletal: Normal ROM, no tenderness. Strength 5/5. Sensation intact. Pulses equal bilaterally 2+. Neurological: A&O x 3. CN II-XII intact, There are no obvious motor or sensory deficits. Coordination appears grossly intact. Speech is normal. Skin: Skin is warm and dry and no rashes or lesions are noted. Psychiatric: Cooperative, appropriate mood & affect, normal judgment. Course Vital Signs 10/23/20 06:30 Temperature 98.4 F Pulse Rate 107 H Respiratory 18 Rate Blood Pressure 110/66 O2 Sat by Pulse 96 Oximetry Medical Decision Making - Medical Decision Making Patient's CT of his head was reviewed and shows no acute abnormalities. Results were discussed with patient. He is a symptomatic here in the emergency room. He is feeling well. His request will be discharged. Patient will be sent back to rehab facility. Is advised return for any other concerns. He states understanding and is agreement. Disposition Clinical Impression: Fall, Head injury Disposition: HOME SELF-CARE Condition: Good Instructions (If sedation given, give patient instructions): Head Injury (ED) Additional Instructions: Please follow-up with family doctor in the next 2 days of symptoms have not improved. Please return to emergency room if the symptoms increase or worsen or for any other concerns. Is patient prescribed a controlled substance at d/c from ED?: No Referrals: Radha Ortiz MD [Primary Care Provider] - 1-2 days Time of Disposition: 08:01
--- NOTE | 2020-10-23 07:37 | CT ---
EXAMINATION TYPE: CT brain wo con DATE OF EXAM: 10/23/2020 COMPARISON: 09/27/2020 INDICATION: Fall DLP: 1232.4 mGycm, Automated exposure control for dose reduction was used. CONTRAST: None CT of the brain is performed utilizing 3 mm thick sections through the posterior fossa and 3 mm thick sections through the remaining calvarium. Study is performed within 24 hours of arrival to the hosp [facility]. No abnormal hyperdensity is present to suggest an acute intracranial hemorrhage. No mass lesion is evident. No acute infarcts are evident. Ventricles and sulci are appropriate for the patient age. Paranasal sinuses and mastoid air cells within the [id number] are clear. No significant interval change from comparison IMPRESSIONS: 1. No acute intracranial process.
[2020-10-23 08:10] VITALS: BP 106/85; PULSE 100; RESP 16
== END 2020-10-23 08:40 | disposition home or self-care (01) ==
LOC: EC 06:28
DX: S09.90XA Unspecified injury of head, initial encounter (principal); I10 Essential (primary) hypertension; J44.9 Chronic obstructive pulmonary disease, unspecified; E11.40 Type 2 diabetes mellitus with diabetic neuropathy, unspecified; M19.90 Unspecified osteoarthritis, unspecified site; K21.9 Gastro-esophageal reflux disease without esophagitis; E78.5 Hyperlipidemia, unspecified; G47.30 Sleep apnea, unspecified; G40.909 Epilepsy, unspecified, not intractable, without status epilepticus; F32.9 Major depressive disorder, single episode, unspecified; I25.2 Old myocardial infarction; Z79.899 Other long term (current) drug therapy; Z79.4 Long term (current) use of insulin; Z79.82 Long term (current) use of aspirin; Z79.890 Hormone replacement therapy; Z88.8 Allergy status to other drugs, medicaments and biological substances; Z87.891 Personal history of nicotine dependence; Z99.89 Dependence on other enabling machines and devices; Z85.118 Personal history of other malignant neoplasm of bronchus and lung; W07.XXXA Fall from chair, initial encounter; Y93.84 Activity, sleeping
CPT/HCPCS: 70450; 99284

== ENCOUNTER 2020-12-14 16:19 | Emergency (ER) | payer MEDICARE, OTHER ==
[2020-12-14] MEDS ORDERED: SODIUM CHLORIDE 0.9% 1,000 ML IV STA (16:25)
[2020-12-14 16:40] LABS: Basophils % (A) 1 %; Eosinophils # (A) 0.1 k/uL (0-0.7); Eosinophils % (A) 1 %; HCT 37.5 % (39.0-53.0); HGB 12.9 gm/dL (13.0-17.5); Lymphocytes # (A) 1.8 k/uL (1.0-4.8); Lymphocytes % (A) 28 %; MCH 29.6 pg (25.0-35.0); MCHC 34.5 g/dL (31.0-37.0); MCV 85.7 fL (80.0-100.0); Mean Platelet Volume 7.8; Monocytes # (A) 0.5 k/uL (0-1.0); Monocytes % (A) 7 %; Neutrophils # (A) 3.9 k/uL (1.3-7.7); Neutrophils % (A) 62 %; Platelet Count 223 k/uL (150-450); RBC 4.37 m/uL (4.30-5.90); RDW 14.2 % (11.5-15.5); WBC 6.4 k/uL (3.8-10.6)
[2020-12-14 16:40] LABS: Glucose,Whole Blood 236 mg/dL (75-99)
[2020-12-14 16:49] LABS: ALT 15 U/L (4-49); AST 33 U/L (17-59); African American GFR (CKD) >90 (>60 ml/min/1.73 sqM); Albumin 4.8 g/dL (3.5-5.0); Alkaline Phosphatase 78 U/L (38-126); Anion Gap 12 mmol/L; Blood Urea Nitrogen 30 mg/dL (9-20); Carbon Dioxide 35 mmol/L (22-30); Chloride 90 mmol/L (98-107); Glucose 228 mg/dL (74-99); Non-African American GFR(CKD) >90 (>60 ml/min/1.73 sqM); Sodium 137 mmol/L (137-145); Total Bilirubin 0.4 mg/dL (0.2-1.3); Total Protein 7.4 g/dL (6.3-8.2)
--- NOTE | 2020-12-14 16:55 | ED ---
General Adult HPI - General Stated complaint: chest pain, neuro issue Time Seen by Provider: 12/14/20 16:25 Source: EMS Mode of arrival: EMS Limitations: no limitations - Related Data Home Medications Medication Instructions Recorded Confirmed levETIRAcetam [Keppra] 750 mg PO DAILY@1400 03/28/19 12/14/20 Acetaminophen [Tylenol] 650 mg PO Q6H PRN 05/30/19 12/14/20 Insulin Glargine,Hum.rec.anlog 30 unit SQ HS@209905/30/19 12/14/20 [Basaglar Kwikpen U-100] Linagliptin [Tradjenta] 5 mg PO DAILY@0900 05/30/19 12/14/20 Midodrine HCl [ProAmatine] 10 mg PO TID@0900,1300,1800 05/30/19 12/14/20 rOPINIRole HCL [Requip] 3 mg PO TID@0600,1400,2200 05/30/19 12/14/20 Divalproex Sodium [Depakote] 500 mg PO TID@0900,1300,209907/21/19 12/14/20 Ergocalciferol [Vitamin D2 50,000 units PO ANDERSON 07/21/19 12/14/20 (DRISDOL)] Montelukast [Singulair] 10 mg PO HS@209907/21/19 12/14/20 Famotidine [Pepcid] 20 mg PO BID@0900,2100 11/20/19 12/14/20 Aspirin 81 mg PO DAILY@0900 02/12/20 12/14/20 Azelastine HCl 2 spray EA NOSTRIL BID PRN 02/12/20 12/14/20 Potassium Chloride [K-Tab ER] 20 meq PO BID@0900,209902/12/20 12/14/20 bisacodyL [Bisacodyl] 10 mg RECTAL DAILY PRN 02/12/20 12/14/20 guaiFENesin [Mucinex] 600 mg PO BID@0900,209902/12/20 12/14/20 Magnesium Hydroxide [Milk of 2,400 mg PO DAILY PRN 05/03/20 12/14/20 Magnesia] levETIRAcetam [Keppra] 1,500 mg PO BID@0900,2100 05/03/20 12/14/20 Furosemide [Lasix] 40 mg PO BID@0900,1500 PRN 09/06/20 12/14/20 polyethylene glycoL 3350 [Miralax] 17 gm PO DAILY PRN 09/06/20 12/14/20 Atorvastatin [Lipitor] 80 mg PO HS@209910/23/20 12/14/20 Cyanocobalamin [Vitamin B-12] 500 mcg PO DAILY@0900 10/23/20 12/14/20 Insulin Lispro [humaLOG Kwikpen] 6 unit SQ AC-TID 10/23/20 12/14/20 MORPHINE ORAL APOLLO 2mg/mL [Morphine 10 mg PO Q6H PRN 10/23/20 12/14/20 Oral Soln 2 MG/ML] Mag Hydrox/Aluminum Hyd/Simeth 30 ml PO Q4H PRN 10/23/20 12/14/20 [Mylanta Maximum Strength Liq] Pregabalin [Lyrica] 225 mg PO HS@209910/23/20 12/14/20 metFORMIN HCL 1,000 mg PO BID@0900,1700 10/23/20 12/14/20 traZODone HCL [Desyrel] 75 mg PO HS@209910/23/20 12/14/20 Lactulose 20 gm PO BID@0900,209912/14/20 12/14/20 Melatonin 10 mg PO HS@209912/14/20 12/14/20 Metoprolol Tartrate [Lopressor] 12.5 mg PO HS@209912/14/20 12/14/20 metOLazone [Zaroxolyn] 5 mg PO DAILY@0800 12/14/20 12/14/20 Previous Rx's Medication Instructions Recorded Nitroglycerin Sl Tabs [Nitrostat] 0.4 mg SUBLINGUAL Q5M PRN #0 tab 05/07/20 Allergies Allergy/AdvReac Type Severity Reaction Status Date / Time baclofen Allergy Unknown Verified 12/14/20 16:51 cyclobenzaprine Allergy Unknown Verified 12/14/20 16:51 [From Flexeril] Review of Systems ROS Statement: Those systems with pertinent positive or pertinent negative responses have been documented in the HPI. ROS Other: All systems not noted in ROS Statement are negative. Past Medical History Past Medical History: Coronary Artery Disease (CAD), Cancer, COPD, Diabetes Mellitus, GERD/Reflux, Hyperlipidemia, Hypertension, Myocardial Infarction ([place]), Osteoarthritis (OA), Seizure Disorder, Sleep Apnea/CPAP/BIPAP Additional Past Medical History / Comment(s): LAST SEIZURE 2018; lumbar radiculopathy; neuropathy; no CPAP needed per recent sleep study, hx. lung cancer, cellulitis of both lower legs 2020 Last Myocardial Infarction Date:: 10/22/10 History of Any Multi-Drug Resistant Organisms: None Reported Past Surgical History: Back Surgery, Cholecystectomy, Heart Catheterization With Stent Additional Past Surgical History / Comment(s): LAMINECTOMY ,fusion,spinal stimulator LEFT SHOULDER sx, 07-31-15 revison thoracic laminectomy t10- t11/removal of neuro stimulator and wires removed, fused L1&2 to a cage fusion that was previously put in to L3,4,5. May 27/2018. lobectomy of right middle lung Past Anesthesia/Blood Transfusion Reactions: No Reported Reaction Date of Last Stent Placement:: 10/22/10 Past Psychological History: Depression Smoking Status: Former smoker Past Alcohol Use History: None Reported Past Drug Use History: None Reported - Past Family History Brother(s) Family Medical History: Deep Vein Thrombosis (DVT) Mother Family Medical History: Osteoarthritis (OA) Additional Family Medical History / Comment(s): psoriases, Parkinsons Father Family Medical History: Coronary Artery Disease (CAD) Additional Family Medical History / Comment(s): heart problems- quad bypass, General Exam Limitations: no limitations Course Vital Signs 12/14/20 12/14/20 12/14/20 16:21 16:27 16:30 Temperature 97.9 F Pulse Rate 98 99 97 Respiratory 18 20 18 Rate Blood Pressure 130/78 131/73 131/73 O2 Sat by Pulse 97 98 98 Oximetry 12/14/20 12/14/20 12/14/20 16:45 17:00 17:15 Temperature Pulse Rate 89 92 Respiratory 14 18 Rate Blood Pressure 111/73 119/77 118/77 O2 Sat by Pulse 98 98 Oximetry 12/14/20 12/14/20 12/14/20 17:30 17:45 18:00 Temperature Pulse Rate 92 90 88 Respiratory 16 18 18 Rate Blood Pressure 111/78 107/74 110/74 O2 Sat by Pulse 98 97 98 Oximetry 12/14/20 12/14/20 18:15 19:28 Temperature 98.0 F Pulse Rate 92 92 Respiratory 19 18 Rate Blood Pressure 106/79 106/69 O2 Sat by Pulse 98 98 Oximetry EKG Findings - EKG Comments: EKG Findings:: EKG was obtained due to complaining of earlier chest pain, EKG was obtained at 1629 rate is 97 rhythm is sinus with few supraventricular beats. MT is 150 to come here is 90 QTc is 467 there are no acute ST elevations or depressions no evidence of acute ischemia or infarction. Medical Decision Making - Lab Data Result diagrams: 12/14/20 16:34 12/14/20 16:34 Lab Results 12/14/20 12/14/20 12/14/20 Range/Units 16:34 16:34 16:34 WBC 6.4 (3.8-10.6) k/uL RBC 4.37 (4.30-5.90) m/uL Hgb 12.9 L (13.0-17.5) gm/dL Hct 37.5 L (39.0-53.0) % MCV 85.7 (80.0-100.0) fL MCH 29.6 (25.0-35.0) pg MCHC 34.5 (31.0-37.0) g/dL RDW 14.2 (11.5-15.5) % Plt Count 223 (150-450) k/uL MPV 7.8 Neutrophils % 62 % Lymphocytes % 28 % Monocytes % 7 % Eosinophils % 1 % Basophils % 1 % Neutrophils # 3.9 (1.3-7.7) k/uL Lymphocytes # 1.8 (1.0-4.8) k/uL Monocytes # 0.5 (0-1.0) k/uL Eosinophils # 0.1 (0-0.7) k/uL Basophils # 0.0 (0-0.2) k/uL PT 9.4 (9.0-12.0) sec INR 0.9 (<1.2) APTT 22.2 (22.0-30.0) sec Sodium 137 (137-145) mmol/L Potassium 3.2 L (3.5-5.1) mmol/L Chloride 90 L (98-107) mmol/L Carbon Dioxide 35 H (22-30) mmol/L Anion Gap 12 mmol/L BUN 30 H (9-20) mg/dL Creatinine 0.78 (0.66-1.25) mg/dL Est GFR (CKD-EPI)AfAm >90 (>60 ml/min/1.73 sqM) Est GFR (CKD-EPI)NonAf >90 (>60 ml/min/1.73 sqM) Glucose 228 H (74-99) mg/dL POC Glucose (mg/dL) (75-99) mg/dL POC Glu Surveillance Operator ID Calcium 10.0 (8.4-10.2) mg/dL Total Bilirubin 0.4 (0.2-1.3) mg/dL AST 33 (17-59) U/L ALT 15 (4-49) U/L Alkaline Phosphatase 78 (38-126) U/L Troponin I (0.000-0.034) ng/mL Total Protein 7.4 (6.3-8.2) g/dL Albumin 4.8 (3.5-5.0) g/dL 12/14/20 12/14/20 Range/Units 16:34 16:36 WBC (3.8-10.6) k/uL RBC (4.30-5.90) m/uL Hgb (13.0-17.5) gm/dL Hct (39.0-53.0) % MCV (80.0-100.0) fL MCH (25.0-35.0) pg MCHC (31.0-37.0) g/dL RDW (11.5-15.5) % Plt Count (150-450) k/uL MPV Neutrophils % % Lymphocytes % % Monocytes % % Eosinophils % % Basophils % % Neutrophils # (1.3-7.7) k/uL Lymphocytes # (1.0-4.8) k/uL Monocytes # (0-1.0) k/uL Eosinophils # (0-0.7) k/uL Basophils # (0-0.2) k/uL PT (9.0-12.0) sec INR (<1.2) APTT (22.0-30.0) sec Sodium (137-145) mmol/L Potassium (3.5-5.1) mmol/L Chloride (98-107) mmol/L Carbon Dioxide (22-30) mmol/L Anion Gap mmol/L BUN (9-20) mg/dL Creatinine (0.66-1.25) mg/dL Est GFR (CKD-EPI)AfAm (>60 ml/min/1.73 sqM) Est GFR (CKD-EPI)NonAf (>60 ml/min/1.73 sqM) Glucose (74-99) mg/dL POC Glucose (mg/dL) 236 H (75-99) mg/dL POC Glu Surveillance Operator ID Fetterhoff, Anthony Calcium (8.4-10.2) mg/dL Total Bilirubin (0.2-1.3) mg/dL AST (17-59) U/L ALT (4-49) U/L Alkaline Phosphatase (38-126) U/L Troponin I <0.012 (0.000-0.034) ng/mL Total Protein (6.3-8.2) g/dL Albumin (3.5-5.0) g/dL Disposition Clinical Impression: Atypical chest pain Disposition: HOME SELF-CARE Condition: Stable Instructions (If sedation given, give patient instructions): Weakness (ED), Chest Wall Pain (ED) Is patient prescribed a controlled substance at d/c from ED?: No Referrals: Radha Ortiz MD [Primary Care Provider] - 1-2 days
[2020-12-14 16:58] LABS: INR 0.9 (<1.2); Partial Thromboplastin Time 22.2 sec (22.0-30.0); Prothrombin Time 9.4 sec (9.0-12.0)
[2020-12-14 17:00] LABS: Potassium 3.2 mmol/L (3.5-5.1)
--- NOTE | 2020-12-14 17:00 | CT ---
EXAM: CT brain wo con for TPA CLINICAL HISTORY: Acute stroke. COMPARISON: 10/23/2020. TECHNIQUE: Contiguous axial noncontrast images of the brain were obtained. Coronal and sagittal refor mats were generated and reviewed. Automated dose control was used for this exam. FINDINGS: There is no evidence for intracranial hemorrhage, mass effect or midline shift. The white matter is g rossly preserved. Ventricular size and configuration is within normal limits for degree of parenchymal volume. The paranasal sinuses are clear. The mastoid air cells are clear. No evidence for calvarial fracture. IMPRESSION: No acute intracranial abnormality.
--- NOTE | 2020-12-14 17:18 | CT ---
EXAM: CTA HEAD AND NECK INDICATION: Acute stroke. COMPARISON: None available. TECHNIQUE: CTA of the head and neck were performed with multiplanar and MIP reformats generated and r eviewed. Stenosis evaluation is based on [place] Symptomatic Carotid Endarterectomy Trial (SERA CET). 65 mL of Isovue-370 intravenous contrast was administered. FINDINGS: There is mild atherosclerosis of the aortic arch. Otherwise normal three-vessel branching of the aort a. There is moderate 50-70% stenosis of the right proximal ICA. Otherwise no additional significant s tenosis, dissection or aneurysm seen in the bilateral common carotid, cervical internal carotid and v ertebral arteries. There is no evidence of high-grade stenosis, dissection or aneurysm in the intracranial internal kim tid arteries, anterior, middle and posterior cerebral arteries as well as in the imaged vertebral and basilar arteries. The communicating arteries are unremarkable. IMPRESSION: No acute abnormality of the CTA head/neck. Moderate stenosis of the right proximal ICA.
--- NOTE | 2020-12-14 17:45 | XR ---
EXAMINATION TYPE: XR chest 2V DATE OF EXAM: 12/14/2020 COMPARISON: 09/28/2020. HISTORY: Chest pain and altered mental status. TECHNIQUE: Frontal and lateral views of the chest are obtained. FINDINGS: There is diffuse mild to moderate hazy opacities. No pleural effusion, or pneumothorax see n. The cardiac silhouette size is within normal limits. The osseous structures are intact. IMPRESSION: Hazy opacities compatible with edema/atelectasis. Superimposed infiltrate is not exclude d.
[2020-12-14 18:23] VITALS: PULSE 92
[2020-12-14 19:31] VITALS: BP 106/69; RESP 18; TEMP 98
== END 2020-12-14 19:31 | disposition home or self-care (01) ==
LOC: EC 16:19
DX: R07.89 Other chest pain (principal); I25.10 Atherosclerotic heart disease of native coronary artery without angina pectoris; J44.9 Chronic obstructive pulmonary disease, unspecified; E11.40 Type 2 diabetes mellitus with diabetic neuropathy, unspecified; K21.9 Gastro-esophageal reflux disease without esophagitis; E78.5 Hyperlipidemia, unspecified; I10 Essential (primary) hypertension; I25.2 Old myocardial infarction; G40.909 Epilepsy, unspecified, not intractable, without status epilepticus; G47.30 Sleep apnea, unspecified; M19.90 Unspecified osteoarthritis, unspecified site; F32.9 Major depressive disorder, single episode, unspecified; Z87.891 Personal history of nicotine dependence; Z79.4 Long term (current) use of insulin; Z79.82 Long term (current) use of aspirin
CPT/HCPCS: 99285 ×2; 96360 ×2; 36415; 93005; 80053; 84484; 85025; 85610; 85730; 71046; 70496; 70450; 70498; Q9967

== ENCOUNTER → 2021-01-28 | Outpatient (CLI) | payer MEDICARE, OTHER | END | disposition home or self-care (01) | LOC: RADMRIMAIN 08:54 | PROVIDERS: ATTEND Family Medicine | DX: Z53.9 Procedure and treatment not carried out, unspecified reason (principal) ==

== ENCOUNTER 2021-03-04 | Inpatient (IN) | payer MEDICARE, OTHER | END 2021-03-04 10:34 | disposition left against medical advice (07) | DRG 65 | PROVIDERS: ADMIT Family Medicine | CPT/HCPCS: 36415; 70450; 70496; 70498; 71046; 80053; 80164; 80177; 84484; 85025; 85610; 85730; 87635; 93005; 99285 ==

== ENCOUNTER 2021-05-01 18:22 | Inpatient (IN) | payer MEDICARE, OTHER ==
[2021-05-01] MEDS ORDERED: SODIUM CHLORIDE 0.9% 500 ML 500 ML IV STA (18:26)
[2021-05-01 18:28] LABS: Glucose,Whole Blood 218 mg/dL (75-99)
--- NOTE | 2021-05-01 18:29 | ED ---
General Adult HPI - General Stated complaint: Possible Stroke Time Seen by Provider: 05/01/21 18:26 Source: EMS Mode of arrival: EMS Limitations: no limitations - History of Present Illness Initial comments: Dictation was produced using [employer] dictation software. please excuse any grammatical, word or spelling errors. Chief Complaint: 55-year-old male brought in from [facility] for left- sided facial droop History of Present Illness: This is a 55-year-old male presents emergency department for left-sided facial droop. Patient noted his left lower face was drooping proximally 30 minutes prior to arrival. However he does not know when his symptoms started. I see no see looked in the mirror at 4:30 this morning. He did notany facial droop then. Patient denies any weakness or numbness to the arms or legs. He has history of neuropathy. EMS was called patient is brought to the ER. He had a normal set of vital signs and normal bony care blood glucose. patient reports history of stroke. The ROS documented in this emergency department record has been reviewed and confirmed by me. Those systems with pertinent positive or negative responses have been documented in the HPI. All other systems are other negative and/or noncontributory. PHYSICAL EXAM: General Impression: Alert and oriented x3, not in acute distress HEENT: Normocephalic atraumatic, extra-ocular movements intact, pupils equal and reactive to light bilaterally, mucous membranes moist. Cardiovascular: Heart regular rate and rhythm Chest: Able to complete full sentences, no retractions, no tachypnea Abdomen: abdomen soft, non-tender, non-distended, no organomegaly Musculoskeletal: Pulses present and equal in all extremities, no peripheral edema Motor: no focal deficits noted Neurological: Left lower facial droop, intact periorbital muscles, no sensory deficits to the face or extremities, not aphasic, NIH 2 Skin: Intact with no visualized rashes Psych: Normal affect and mood ED course: 55 yo male resents to the emergency department for strokelike symptom s and his symptoms were noted 30 minutes prior to arrival however he will is unclear when his symptoms began. Last known normal was 4:30 this morning when he looked in the mirror. Laboratory evaluation obtained. CBC is unremarkable. Coag panel is normal. Metabolic panel shows potassium 2.9. Rest of anabolic panel is negative. Chest x-ray shows mild congestive changes. Computed tomography scan of the brain shows no acute processes. CT angiogram of the head and neck shows no acute abnormality. There is moderate stenosis of the proximal right ICA. Patient reevaluated at bedside finally similar condition. Complaining of a headache. Patient given 1 g Tylenol. Patient given aspirin. EKG interpretation: Ventricular rate 83, sinus rhythm,. Interval 160, QRS 100, QTC 477. No GA prolongation, no QTC prolongation, no ST or T-wave changes noted. . Overall, this EKG is unremarkable Patient reevaluated at 756. Ordered for headache cocktail. Patient and mother are agreeable to plan. - Related Data Home Medications Medication Instructions Recorded Confirmed Acetaminophen [Tylenol] 650 mg PO Q6H PRN 05/30/19 05/01/21 Insulin Glargine,Hum.rec.anlog 38 unit SQ BID 05/30/19 05/01/21 [Basaglar Kwikpen U-100] Linagliptin [Tradjenta] 5 mg PO DAILY 05/30/19 05/01/21 Midodrine HCl [ProAmatine] 10 mg PO TID@0900,1300,1800 05/30/19 05/01/21 rOPINIRole HCL [Requip] 3 mg PO TID@0600,1400,2200 05/30/19 05/01/21 Divalproex Sodium [Depakote] 500 mg PO BID 07/21/19 05/01/21 Ergocalciferol [Vitamin D2 1,250 mcg PO ANDERSON@0900 07/21/19 05/01/21 (DRISDOL)] Montelukast [Singulair] 10 mg PO HS 07/21/19 05/01/21 Famotidine [Pepcid] 20 mg PO BID 11/20/19 05/01/21 Aspirin 81 mg PO DAILY 02/12/20 05/01/21 Azelastine HCl 2 spray EA NOSTRIL BID PRN 02/12/20 05/01/21 Potassium Chloride [K-Tab ER] 20 meq PO Q8H 02/12/20 05/01/21 bisacodyL 10 mg RECTAL DAILY PRN 02/12/20 05/01/21 guaiFENesin [Mucinex] 600 mg PO BID 02/12/20 05/01/21 Magnesium Hydroxide [Milk of 2,400 mg PO DAILY PRN 05/03/20 05/01/21 Magnesia] levETIRAcetam [Keppra] 1,500 mg PO BID 05/03/20 05/01/21 Furosemide [Lasix] 40 mg PO BID@0800,1400 09/06/20 05/01/21 polyethylene glycoL 3350 [Miralax] 17 gm PO DAILY PRN 09/06/20 05/01/21 Atorvastatin [Lipitor] 80 mg PO HS 10/23/20 05/01/21 Cyanocobalamin [Vitamin B-12] 500 mcg PO DAILY 10/23/20 05/01/21 MORPHINE ORAL APOLLO 2mg/mL [Morphine 10 mg PO Q6H PRN 10/23/20 05/01/21 Oral Soln 2 MG/ML] Mag Hydrox/Aluminum Hyd/Simeth 30 ml PO Q4H PRN 10/23/20 05/01/21 [Mylanta Maximum Strength Liq] Pregabalin [Lyrica] 225 mg PO HS 10/23/20 05/01/21 metFORMIN HCL [Glucophage] 1,000 mg PO BID@0900,1700 10/23/20 05/01/21 Lactulose 20 gm PO BID PRN 12/14/20 05/01/21 Melatonin 10 mg PO HS 12/14/20 05/01/21 Metoprolol Tartrate [Lopressor] 12.5 mg PO HS 12/14/20 05/01/21 Insulin Aspart [NovoLOG Flexpen] 4 units SQ HS PRN 03/04/21 05/01/21 Insulin Aspart [NovoLOG Flexpen] 8 units SQ AC-BRKFST@0800 03/04/21 05/01/21 Insulin Aspart [NovoLOG Flexpen] 14 units SQ AC-BID@1200,1700 03/04/21 05/01/21 Methyl Salicylate/Menthol 1 patch TOPICAL DAILY 03/04/21 05/01/21 [Salonpas Patch] Pregabalin [Lyrica] 50 mg PO DAILY 03/04/21 05/01/21 Sennosides/Docusate Sodium [Senna 2 tab PO DAILY@1400 03/04/21 05/01/21 Plus 8.6-50 mg Tablet] methocarbamoL [Robaxin] 500 mg PO DAILY 03/04/21 05/01/21 Glimepiride [Amaryl] 1 mg PO BID@0900,1700 05/01/21 05/01/21 Nitroglycerin Sl Tabs [Nitrostat] 0.4 mg SL Q5M PRN 05/01/21 05/01/21 metOLazone [Zaroxolyn] 5 mg PO Q48H 05/01/21 05/01/21 traZODone HCL 150 mg PO HS 05/01/21 05/01/21 Allergies Allergy/AdvReac Type Severity Reaction Status Date / Time baclofen Allergy Unknown Verified 05/01/21 18:42 cyclobenzaprine Allergy Unknown Verified 05/01/21 18:42 [From Flexeril] Review of Systems ROS Statement: Those systems with pertinent positive or pertinent negative responses have been documented in the HPI. ROS Other: All systems not noted in ROS Statement are negative. Past Medical History Past Medical History: Coronary Artery Disease (CAD), Cancer, COPD, Diabetes Mellitus, GERD/Reflux, Hyperlipidemia, Hypertension, Myocardial Infarction ([place]), Osteoarthritis (OA), Seizure Disorder, Sleep Apnea/CPAP/BIPAP Additional Past Medical History / Comment(s): LAST SEIZURE 2018; lumbar radiculopathy; neuropathy; no CPAP needed per recent sleep study, hx. lung cancer, cellulitis of both lower legs 2020 Last Myocardial Infarction Date:: 10/22/10 History of Any Multi-Drug Resistant Organisms: None Reported Past Surgical History: Back Surgery, Cholecystectomy, Heart Catheterization With Stent Additional Past Surgical History / Comment(s): LAMINECTOMY ,fusion,spinal stimulator LEFT SHOULDER sx, 07-31-15 revison thoracic laminectomy t10- t11/removal of neuro stimulator and wires removed, fused L1&2 to a cage fusion that was previously put in to L3,4,5. May 27/2018. lobectomy of right middle lung Past Anesthesia/Blood Transfusion Reactions: No Reported Reaction Date of Last Stent Placement:: 10/22/10 Past Psychological History: Depression Smoking Status: Former smoker Past Alcohol Use History: None Reported Past Drug Use History: None Reported - Past Family History Brother(s) Family Medical History: Deep Vein Thrombosis (DVT) Mother Family Medical History: Osteoarthritis (OA) Additional Family Medical History / Comment(s): psoriases, Parkinsons Father Family Medical History: Coronary Artery Disease (CAD) Additional Family Medical History / Comment(s): heart problems- quad bypass, General Exam Limitations: no limitations Course Vital Signs 05/01/21 05/01/21 05/01/21 18:23 18:30 18:45 Temperature 98.4 F Pulse Rate 89 80 83 Respiratory 18 18 18 Rate Blood Pressure 138/73 133/72 146/73 O2 Sat by Pulse 97 97 93 L Oximetry Medical Decision Making - Lab Data Result diagrams: 05/01/21 18:32 05/01/21 18:32 Lab Results 05/01/21 05/01/21 05/01/21 Range/Units 18:26 18:32 18:32 WBC 5.9 (3.8-10.6) k/uL RBC 4.09 L (4.30-5.90) m/uL Hgb 12.0 L (13.0-17.5) gm/dL Hct 35.5 L (39.0-53.0) % MCV 86.8 (80.0-100.0) fL MCH 29.4 (25.0-35.0) pg MCHC 33.8 (31.0-37.0) g/dL RDW 14.5 (11.5-15.5) % Plt Count 197 (150-450) k/uL MPV 8.0 Neutrophils % 55 % Lymphocytes % 31 % Monocytes % 9 % Eosinophils % 1 % Basophils % 1 % Neutrophils # 3.2 (1.3-7.7) k/uL Lymphocytes # 1.8 (1.0-4.8) k/uL Monocytes # 0.5 (0-1.0) k/uL Eosinophils # 0.1 (0-0.7) k/uL Basophils # 0.0 (0-0.2) k/uL PT 9.7 (9.0-12.0) sec INR 0.9 (<1.2) APTT 22.1 (22.0-30.0) sec Sodium (137-145) mmol/L Potassium (3.5-5.1) mmol/L Chloride (98-107) mmol/L Carbon Dioxide (22-30) mmol/L Anion Gap mmol/L BUN (9-20) mg/dL Creatinine (0.66-1.25) mg/dL Est GFR (CKD-EPI)AfAm (>60 ml/min/1.73 sqM) Est GFR (CKD-EPI)NonAf (>60 ml/min/1.73 sqM) Glucose (74-99) mg/dL POC Glucose (mg/dL) 218 H (75-99) mg/dL POC Glu [employer] Jenn Oconnor Calcium (8.4-10.2) mg/dL Total Bilirubin (0.2-1.3) mg/dL AST (17-59) U/L ALT (4-49) U/L Alkaline Phosphatase (38-126) U/L Troponin I (0.000-0.034) ng/mL Total Protein (6.3-8.2) g/dL Albumin (3.5-5.0) g/dL 05/01/21 05/01/21 Range/Units 18:32 18:32 WBC (3.8-10.6) k/uL RBC (4.30-5.90) m/uL Hgb (13.0-17.5) gm/dL Hct (39.0-53.0) % MCV (80.0-100.0) fL MCH (25.0-35.0) pg MCHC (31.0-37.0) g/dL RDW (11.5-15.5) % Plt Count (150-450) k/uL MPV Neutrophils % % Lymphocytes % % Monocytes % % Eosinophils % % Basophils % % Neutrophils # (1.3-7.7) k/uL Lymphocytes # (1.0-4.8) k/uL Monocytes # (0-1.0) k/uL Eosinophils # (0-0.7) k/uL Basophils # (0-0.2) k/uL PT (9.0-12.0) sec INR (<1.2) APTT (22.0-30.0) sec Sodium 137 (137-145) mmol/L Potassium 2.9 L (3.5-5.1) mmol/L Chloride 91 L (98-107) mmol/L Carbon Dioxide 36 H (22-30) mmol/L Anion Gap 10 mmol/L BUN 21 H (9-20) mg/dL Creatinine 0.74 (0.66-1.25) mg/dL Est GFR (CKD-EPI)AfAm >90 (>60 ml/min/1.73 sqM) Est GFR (CKD-EPI)NonAf >90 (>60 ml/min/1.73 sqM) Glucose 236 H (74-99) mg/dL POC Glucose (mg/dL) (75-99) mg/dL POC Glu [employer] Operator ID Calcium 9.1 (8.4-10.2) mg/dL Total Bilirubin 0.3 (0.2-1.3) mg/dL AST 23 (17-59) U/L ALT 16 (4-49) U/L Alkaline Phosphatase 77 (38-126) U/L Troponin I <0.012 (0.000-0.034) ng/mL Total Protein 6.3 (6.3-8.2) g/dL Albumin 3.9 (3.5-5.0) g/dL Critical Care Time Critical Care Time: Yes Total Critical Care Time: 33 Disposition Clinical Impression: Cerebrovascular accident (CVA) Disposition: ADMITTED IP TO THIS HOSP Condition: Fair Referrals: Radha Ortiz MD [Primary Care Provider] - 1-2 days
[2021-05-01 18:40] LABS: Basophils % (A) 1 %; Eosinophils # (A) 0.1 k/uL (0-0.7); Eosinophils % (A) 1 %; HCT 35.5 % (39.0-53.0); Lymphocytes # (A) 1.8 k/uL (1.0-4.8); Lymphocytes % (A) 31 %; MCH 29.4 pg (25.0-35.0); MCHC 33.8 g/dL (31.0-37.0); MCV 86.8 fL (80.0-100.0); Monocytes # (A) 0.5 k/uL (0-1.0); Monocytes % (A) 9 %; Neutrophils # (A) 3.2 k/uL (1.3-7.7); Neutrophils % (A) 55 %; Platelet Count 197 k/uL (150-450); RBC 4.09 m/uL (4.30-5.90); RDW 14.5 % (11.5-15.5); WBC 5.9 k/uL (3.8-10.6)
[2021-05-01 18:50] LABS: ALT 16 U/L (4-49); AST 23 U/L (17-59); African American GFR (CKD) >90 (>60 ml/min/1.73 sqM); Albumin 3.9 g/dL (3.5-5.0); Alkaline Phosphatase 77 U/L (38-126); Anion Gap 10 mmol/L; Blood Urea Nitrogen 21 mg/dL (9-20); Calcium 9.1 mg/dL (8.4-10.2); Carbon Dioxide 36 mmol/L (22-30); Chloride 91 mmol/L (98-107); Glucose 236 mg/dL (74-99); Non-African American GFR(CKD) >90 (>60 ml/min/1.73 sqM); Potassium 2.9 mmol/L (3.5-5.1); Sodium 137 mmol/L (137-145); Total Bilirubin 0.3 mg/dL (0.2-1.3); Total Protein 6.3 g/dL (6.3-8.2)
--- NOTE | 2021-05-01 18:55 | CT ---
EXAM: CT brain wo con for TPA CLINICAL HISTORY: Left-sided facial droop. COMPARISON: 03/04/2021. TECHNIQUE: Contiguous axial noncontrast images of the brain were obtained. Coronal and sagittal refor mats were generated and reviewed. Automated dose control was used for this exam. FINDINGS: There is no evidence for intracranial hemorrhage, mass effect or midline shift. The white matter is g rossly preserved. Ventricular size and configuration is within normal limits for degree of parenchymal volume. The paranasal sinuses are clear. The mastoid air cells are clear. No evidence for calvarial fracture. IMPRESSION: No acute intracranial abnormality.
--- NOTE | 2021-05-01 18:56 | XR ---
EXAMINATION TYPE: XR chest 1V portable DATE OF EXAM: 05/01/2021 COMPARISON: 03/04/2021. HISTORY: Altered mental status. TECHNIQUE: Single frontal view of the chest is obtained. FINDINGS: There is moderate interstitial edema with superimposed hazy and streaky opacities. No pleu ral effusion, or pneumothorax seen. The cardiac silhouette size is mildly enlarged. The osseous st ructures are intact. IMPRESSION: Moderate congestive changes.
[2021-05-01 19:06] LABS: INR 0.9 (<1.2); Prothrombin Time 9.7 sec (9.0-12.0)
[2021-05-01 19:07] LABS: Partial Thromboplastin Time 22.1 sec (22.0-30.0)
--- NOTE | 2021-05-01 19:26 | CT ---
EXAMINATION TYPE: CT angio head neck DATE OF EXAM: 05/01/2021 HISTORY: Left sided facial droop. COMPARISON: 03/04/2021. CT DLP: 924.8 mGycm. Automated Exposure Control for Dose Reduction was Utilized. TECHNIQUE: CTA scan of the head/neck is performed with IV Contrast, patient injected with 65 mL of I sovue 370, axial images are obtained, coronal and sagittal reformatted images are reviewed. Three-D r econstructed images are created on an independent workstation and reviewed. FINDINGS: There is mild atherosclerosis of the aortic arch. There is stable atherosclerotic calcification at th e carotid bulbs, with moderate stenosis of the right proximal ICA. Otherwise normal three-vessel bran melissa of the aorta. There is no additional significant stenosis, dissection or aneurysm seen in the b ilateral common carotid, cervical internal carotid and vertebral arteries. There is no evidence of high-grade stenosis, dissection or aneurysm in the intracranial internal kim tid arteries, anterior, middle and posterior cerebral arteries as well as in the imaged vertebral and basilar arteries. The communicating arteries are unremarkable. IMPRESSION: No acute abnormality of the CTA head/neck. Moderate stenosis of the right proximal ICA. NASCET criteria was used in interpretation of this exam?
[2021-05-01] MEDS ORDERED: ACETAMINOPHEN TAB 500 MG TAB PO STA (19:30)
[2021-05-01] MEDS ORDERED: POTASSIUM CHLORIDE ER 20 MEQ TAB.ER PO STA (19:40)
[2021-05-01] MEDS ORDERED: ASPIRIN 81 MG PO STA (19:45)
[2021-05-01] MEDS ORDERED: KETOROLAC 15 MG/ML 1 ML VIAL IVP STA (19:56)
[2021-05-01] MEDS ORDERED: diphenhydrAMINE 50 MG/ML 1 ML VIAL IVP STA (19:56)
[2021-05-01] MEDS ORDERED: ONDANSETRON 4 MG/2 ML VIAL IVP STA (19:56)
[2021-05-01] MEDS ORDERED: POTASSIUM CHLORIDE 20 MEQ in WATER FOR INJECTION 1 100ML.BAG IVPB ONE (20:00)
[2021-05-01] MEDS: SODIUM CHLORIDE 0.9% 1,000 ML IV SCH (20:31)
[2021-05-01 21:14] LABS: Glucose,Whole Blood 471 mg/dL (75-99)
[2021-05-01] MEDS: INSULIN ASPART (NovoLOG) 100 UNIT/ML VIAL SQ SCH (21:26)
[2021-05-01] MEDS ORDERED: polyethylene glycoL 3350 17 GM POWD.PACK PO PRN (22:07)
[2021-05-01] MEDS ORDERED: bisacodyL 10 MG SUPP RECTAL PRN (22:07)
[2021-05-01] MEDS ORDERED: INSULIN ASPART (NovoLOG) 100 UNIT/ML VIAL SQ PRN (22:07)
[2021-05-01] MEDS ORDERED: NITROGLYCERIN SL TABS 0.4 MG TAB SUBLINGUAL PRN (22:07)
[2021-05-01] MEDS ORDERED: LACTULOSE 200 GM/300 ML (FROM 1/2 GAL JUG) PO PRN (22:07)
[2021-05-01] MEDS ORDERED: AZELASTINE 137MCG/SPRAY EA NOSTRIL PRN (22:07)
[2021-05-01] MEDS ORDERED: MIDODRINE 5 MG TAB PO PRN (22:07)
[2021-05-01] MEDS: POTASSIUM CHLORIDE ER 20 MEQ TAB.ER PO SCH (22:48)
[2021-05-01 23:03] LABS: Glucose,Whole Blood 297 mg/dL (75-99)
[2021-05-02 06:04] LABS: Glucose,Whole Blood 258 mg/dL (75-99)
[2021-05-02] MEDS: metFORMIN 500 MG TAB PO SCH ×2 (07:02→16:51)
[2021-05-02] MEDS: GLIMEPIRIDE 1 MG TAB PO SCH ×2 (07:03→16:51)
[2021-05-02] MEDS: metOLazone 5 MG TAB PO SCH (07:03)
[2021-05-02] MEDS: INSULIN DETEMIR (LEVEMIR) 100 UNIT/ML SYR SQ SCH ×2 (07:03→22:13)
[2021-05-02] MEDS: INSULIN ASPART (NovoLOG) 100 UNIT/ML VIAL SQ SCH ×7 (07:03→22:15)
[2021-05-02] MEDS: POTASSIUM CHLORIDE ER 20 MEQ TAB.ER PO SCH ×3 (07:03→22:11)
[2021-05-02 07:39] LABS: Glucose,Whole Blood 229 mg/dL (75-99)
[2021-05-02] MEDS: ASPIRIN 325 MG TAB PO SCH (08:31)
[2021-05-02] MEDS: ACETAMINOPHEN TAB 325 MG TAB PO PRN ×3 (08:32→22:13)
[2021-05-02] MEDS: FAMOTIDINE 20 MG TAB PO SCH ×2 (08:32→22:12)
[2021-05-02] MEDS: LINAGLIPTIN 5 MG TABLET PO SCH (08:33)
[2021-05-02] MEDS: DIVALPROEX 500 MG TABLET.DR PO SCH ×2 (08:33→22:12)
[2021-05-02] MEDS: PREGABALIN 50 MG CAP PO SCH (08:33)
[2021-05-02] MEDS: FUROSEMIDE 40 MG TAB PO SCH ×2 (08:33→16:52)
[2021-05-02] MEDS: CYANOCOBALAMIN 500 MCG TAB PO SCH (08:33)
[2021-05-02] MEDS ORDERED: ASPIRIN 81 MG PO SCH (09:00)
[2021-05-02] MEDS: methocarbamoL 500 MG TAB PO SCH (10:00)
[2021-05-02 10:23] LABS: Chol/HDL Ratio 4.93; LDL Cholesterol,Calculated 57.6 mg/dL (0.0-131.0); VLDL Calculation 56.4 mg/dL (5.00-40.00)
[2021-05-02 11:42] LABS: Glucose,Whole Blood 144 mg/dL (75-99)
[2021-05-02] MEDS: SENNOSIDES-DOCUSATE SODIUM 1 EACH TAB PO SCH (13:10)
--- NOTE | 2021-05-02 15:19 | P.HPIM ---
History of Present Illness H&P Date: 05/02/21 HISTORY OF PRESENT ILLNESS This is a 55-year-old morbidly obese male who resides at [facility] in the [place] under the care of Dr. Ortiz. Patient also follows with Dr. Parker due to chronic pain with pain pump in place. He also has history of seizure disorder, CVA 3 with left-sided weakness and significant decreased mobility, history of hypertension, diabetes mellitus type II, hyperlipidemia, coronary artery disease with previous stent to the mid RCA, squamous cell lung cancer status post right middle lobe lobectomy. Patient gives history that he was shaving and looked in the mirror and noticed that he had right facial droop and also then noticed that he had a little weakness in his right arm. He normally has left-sided weakness secondary to CVAs. Patient states he will not undergo MRI as he finds it too hard to lay flat for the procedure. Patient presented to [facility] emergency center. Patient was afebrile, heart rate in 80s, blood pressure 138/73, pulse ox 97% on room air. WBC 5.9, hemoglobin 12, platelet count 197. Sodium 137, potassium 2.9, chloride 91, CO2 36, BUN 21 creatinine 0.74. Blood sugar 236. Liver function tests were normal. Troponin negative. Triglycerides 282, cholesterol 143, LDL 57, HDL 29. EKG was a sinus rhythm at 83 bpm, no ST changes. CAT scan of the brain showed no acute intracranial abnormality. CTA of the head and neck reveal no acute abnormality. Moderate stenosis of the right proximal RCA Chest x-ray reveals moderate congestive changes. Patient was started on full strength aspirin, admitted to the cardiac stepdown unit, consult with neurology, speech, OT and PT. REVIEW OF SYSTEMS Constitutional: No fever, no chills, no night sweats. No weight change. No weakness, fatigue or lethargy. No daytime sleepiness. EENT: No headache. No blurred vision or double vision, no loss of vision. No loss of Hearing, no ringing in the ears, no dizziness. No nasal drainage or congestion. No epistaxis. No sore throat. Lungs: No shortness of breath, cough, no sputum production. No wheezing. Cardiovascular: No chest pain, no lower extremity edema. No palpitations. No paroxysmal nocturnal dyspnea. No orthopnea. No lightheadedness or dizziness. No syncopal episodes. Abdominal: No abdominal pain. No nausea, vomiting. No diarrhea. No constipation. No bloody or tarry stools.. No loss of appetite. Genitourinary: No dysuria, increased frequency, urgency. No urinary retention. Musculoskeletal: No myalgias. No muscle weakness, no gait dysfunction, no frequent falls. No back pain. No neck pain. Integumentary: No wounds, no lesions. No rash or pruritus. No unusual bruising. No change in hair or nails. Neurologic: No aphasia. Right-sided facial droop. No change in mentation. No head injury. No headache. No paralysis. No paresthesia. Psychiatric: No depression. No anxiety. No mood swings. Endocrine: No abnormal blood sugars. No weight change. No excessive sweating or thirst. No cold intolerance. SOCIAL HISTORY He quit smoking over 2 years ago 1 ppd for over 40 years. He has history of alcohol abuse but has not had a drink since 2009. Patient is and on disability. He worked as a [employer] and served in the . He does not have any children. Patient is a long-term resident at [facility] in [facility] after history of 3 CVAs and chronic left-sided weakness. He is wheelchair bound and sleeps in a recliner secondary to back pain. FAMILY HISTORY Father is at 78 with history of CVA with history of coronary artery disease status post CABG. Mother is alive at age 77 with history of Parkinson's. Patient has 4 brothers and one sister all living. No children. PHYSICAL EXAMINATION Gen: This is a 55-year-old male. He is resting in chair and appears to be comfortable at this time. HEENT: Head is atraumatic, normocephalic. Pupils equal, round. Sclerae is anicteric. Right-sided facial droop NECK: Supple. No JVD. No lymphadenopathy. No thyromegaly. LUNGS: Clear to auscultation. Diminished in the bases. No wheezes or rhonchi. No intercostal retractions. HEART: Regular rate and rhythm. No murmur. ABDOMEN: Soft. Bowel sounds are present. No masses. No tenderness. EXTREMITIES: No pedal edema. No calf tenderness. NEUROLOGICAL: Patient is awake, alert and oriented 3. Some slurring of speech is noted which I believe his baseline. Mild weakness of the left upper extremity Cranial nerves 2 through 12 are grossly intact. ASSESSMENT AND PLAN 1. Right-sided weakness rule out CVA, continue cardiac monitoring, consult with neurology consult, neuro checks per protocol. Continue aspirin 325 mg daily, Lipitor 80 mg at bedtime. 2. History of CVA 3 with residual left-sided paraplegia. Continue aspirin, Lipitor. 3. History of non-small cell lung cancer status post right middle lobe lobectomy. 4. Chronic pain under the care of Dr. Parker. Pain pump is in place. Continue Robaxin, Lyrica 50 mg daily and 225 at bedtime, trazodone 150 mg at bedtime. 5. Hypertension. Continue Lasix 40 mg twice daily, Lopressor 12.5 mg at bedtime. 8. Hyperlipidemia. Continue atorvastatin. 9. Diabetes mellitus type 2. Continue NovoLog 4 units at bedtime, 8 units with breakfast, 14 units at lunch and supper, Levemir 38 units twice daily, Tradjenta 5 mg daily, metformin 1000 g twice daily, NovoLog scale before meals and at bedtime. 10. Diabetic neuropathy. Continue trazodone, Lyrica. 11. History of coronary artery disease status post stent in the mid RCA. Continue aspirin, Lipitor 80 mg at bedtime. 12. Restless leg syndrome. Continue Requip 3 mg 3 times daily. 13. Seizure disorder. Continue Depakote 500 mg 2 times daily, Keppra 1500 mg daily. 14. GI prophylaxis and gastroesophageal reflux disease. Continue Pepcid 20 mg twice daily. Patient will be admitted to the hospital for a minimum of 2 night stay. DISCHARGE PLAN Return to [facility]. Impression and plan of care have been directed as dictated by the signing physician. Eleonora Almeida nurse practitioner acting as scribe for signing physician. Past Medical History Past Medical History: Coronary Artery Disease (CAD), Cancer, COPD, CVA/TIA, Diabetes Mellitus, GERD/Reflux, Hyperlipidemia, Hypertension, Myocardial Infarction ([place]), Osteoarthritis (OA), Seizure Disorder, Sleep Apnea/CPAP/BIPAP Additional Past Medical History / Comment(s): LAST SEIZURE 2018; lumbar radiculopathy; neuropathy; no CPAP needed per recent sleep study, hx. lung cancer, cellulitis of both lower legs 2020 Last Myocardial Infarction Date:: 10/22/10 History of Any Multi-Drug Resistant Organisms: None Reported Past Surgical History: Back Surgery, Cholecystectomy, Heart Catheterization With Stent Additional Past Surgical History / Comment(s): LAMINECTOMY ,fusion,spinal stimulator LEFT SHOULDER sx, 07-31-15 revison thoracic laminectomy t10- t11/removal of neuro stimulator and wires removed, fused L1&2 to a cage fusion that was previously put in to L3,4,5. May 27/2018. 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 Smoking Status: Former smoker Past Alcohol Use History: None Reported Additional Past Alcohol Use History / Comment(s): STARTED SMOKING 1977. Unable to obtain stopped smoking date. Past Drug Use History: None Reported Additional Drug Use History / Comment(s): HAS A MEDICAL MARIJUANA CARD-no current use. - Past Family History Brother(s) Family Medical History: Deep Vein Thrombosis (DVT) Mother Family Medical History: Osteoarthritis (OA) Additional Family Medical History / Comment(s): psoriases, Parkinsons Father Family Medical History: Coronary Artery Disease (CAD) Additional Family Medical History / Comment(s): heart problems- quad bypass, Medications and Allergies Home Medications Medication Instructions Recorded Confirmed Type Acetaminophen [Tylenol] 650 mg PO Q6H PRN 05/30/19 05/01/21 History Insulin Glargine,Hum.rec.anlog 38 unit SQ BID 05/30/19 05/01/21 History [Dennis Osorio U-100] Linagliptin [Tradjenta] 5 mg PO DAILY 05/30/19 05/01/21 History Midodrine HCl [ProAmatine] 10 mg PO TID@0900,1300,1800 05/30/19 05/01/21 History rOPINIRole HCL [Requip] 3 mg PO TID@0600,1400,2200 05/30/19 05/01/21 History Divalproex Sodium [Depakote] 500 mg PO BID 07/21/19 05/01/21 History Ergocalciferol [Vitamin D2 1,250 mcg PO ANDERSON@0900 07/21/19 05/01/21 History (DRISDOL)] Montelukast [Singulair] 10 mg PO HS 07/21/19 05/01/21 History Famotidine [Pepcid] 20 mg PO BID 11/20/19 05/01/21 History Aspirin 81 mg PO DAILY 02/12/20 05/01/21 History Azelastine HCl 2 spray EA NOSTRIL BID PRN 02/12/20 05/01/21 History Potassium Chloride [K-Tab ER] 20 meq PO Q8H 02/12/20 05/01/21 History bisacodyL 10 mg RECTAL DAILY PRN 02/12/20 05/01/21 History guaiFENesin [Mucinex] 600 mg PO BID 02/12/20 05/01/21 History Magnesium Hydroxide [Milk of 2,400 mg PO DAILY PRN 05/03/20 05/01/21 History Magnesia] levETIRAcetam [Keppra] 1,500 mg PO BID 05/03/20 05/01/21 History Furosemide [Lasix] 40 mg PO BID@0800,1400 09/06/20 05/01/21 History polyethylene glycoL 3350 [Miralax] 17 gm PO DAILY PRN 09/06/20 05/01/21 History Atorvastatin [Lipitor] 80 mg PO HS 10/23/20 05/01/21 History Cyanocobalamin [Vitamin B-12] 500 mcg PO DAILY 10/23/20 05/01/21 History MORPHINE ORAL APOLLO 2mg/mL [Morphine 10 mg PO Q6H PRN 10/23/20 05/01/21 History Oral Soln 2 MG/ML] Mag Hydrox/Aluminum Hyd/Simeth 30 ml PO Q4H PRN 10/23/20 05/01/21 History [Mylanta Maximum Strength Liq] Pregabalin [Lyrica] 225 mg PO HS 10/23/20 05/01/21 History metFORMIN HCL [Glucophage] 1,000 mg PO BID@0900,1700 10/23/20 05/01/21 History Lactulose 20 gm PO BID PRN 12/14/20 05/01/21 History Melatonin 10 mg PO HS 12/14/20 05/01/21 History Metoprolol Tartrate [Lopressor] 12.5 mg PO HS 12/14/20 05/01/21 History Insulin Aspart [NovoLOG Flexpen] 4 units SQ HS PRN 03/04/21 05/01/21 History Insulin Aspart [NovoLOG Flexpen] 8 units SQ AC-BRKFST@0800 03/04/21 05/01/21 History Insulin Aspart [NovoLOG Flexpen] 14 units SQ AC-BID@1200,1700 03/04/21 05/01/21 History Methyl Salicylate/Menthol 1 patch TOPICAL DAILY 03/04/21 05/01/21 History [Salonpas Patch] Pregabalin [Lyrica] 50 mg PO DAILY 03/04/21 05/01/21 History Sennosides/Docusate Sodium [Senna 2 tab PO DAILY@1400 03/04/21 05/01/21 History Plus 8.6-50 mg Tablet] methocarbamoL [Robaxin] 500 mg PO DAILY 03/04/21 05/01/21 History Glimepiride [Amaryl] 1 mg PO BID@0900,1700 05/01/21 05/01/21 History Nitroglycerin Sl Tabs [Nitrostat] 0.4 mg SL Q5M PRN 05/01/21 05/01/21 History metOLazone [Zaroxolyn] 5 mg PO Q48H 05/01/21 05/01/21 History traZODone HCL 150 mg PO HS 05/01/21 05/01/21 History Allergies Allergy/AdvReac Type Severity Reaction Status Date / Time baclofen Allergy Unknown Verified 05/01/21 18:42 cyclobenzaprine Allergy Unknown Verified 05/01/21 18:42 [From Flexeril] Physical Exam Vitals: Vital Signs Temp Pulse Pulse Resp BP BP Pulse Ox 05/02/21 04:00 78 18 136/89 97 05/02/21 02:00 76 18 05/02/21 00:00 76 18 113/55 95 05/01/21 21:38 97.8 F 82 12 130/81 97 05/01/21 20:30 74 12 103/60 95 05/01/21 19:52 97.8 F 18 97 05/01/21 19:45 98.1 F 80 16 123/70 95 05/01/21 18:45 83 18 146/73 93 L 05/01/21 18:30 80 18 133/72 97 05/01/21 18:23 98.4 F 89 18 138/73 97 Intake and Output 05/01/21 05/02/21 05/02/21 22:59 06:59 14:59 Other: Voiding Method Urinal Urinal # Voids 2 1 # Bowel Movements 1 Weight 151.5 kg 149.7 kg Results CBC & Chem 7: 05/01/21 18:32 05/01/21 18:32 Labs: Abnormal Lab Results - Last 24 Hours (Table) 05/01/21 05/01/21 05/01/21 Range/Units 18:26 18:32 18:32 RBC 4.09 L (4.30-5.90) m/uL Hgb 12.0 L (13.0-17.5) gm/dL Hct 35.5 L (39.0-53.0) % Potassium 2.9 L (3.5-5.1) mmol/L Chloride 91 L (98-107) mmol/L Carbon Dioxide 36 H (22-30) mmol/L BUN 21 H (9-20) mg/dL Glucose 236 H (74-99) mg/dL POC Glucose (mg/dL) 218 H (75-99) mg/dL 05/01/21 05/01/21 05/02/21 Range/Units 21:13 23:00 06:03 RBC (4.30-5.90) m/uL Hgb (13.0-17.5) gm/dL Hct (39.0-53.0) % Potassium (3.5-5.1) mmol/L Chloride (98-107) mmol/L Carbon Dioxide (22-30) mmol/L BUN (9-20) mg/dL Glucose (74-99) mg/dL POC Glucose (mg/dL) 471 H 297 H 258 H (75-99) mg/dL 05/02/21 Range/Units 07:38 RBC (4.30-5.90) m/uL Hgb (13.0-17.5) gm/dL Hct (39.0-53.0) % Potassium (3.5-5.1) mmol/L Chloride (98-107) mmol/L Carbon Dioxide (22-30) mmol/L BUN (9-20) mg/dL Glucose (74-99) mg/dL POC Glucose (mg/dL) 229 H (75-99) mg/dL
[2021-05-02 15:52] LABS: Hemoglobin A1C 7.1 % (4.0-6.0)
[2021-05-02 16:43] LABS: Glucose,Whole Blood 154 mg/dL (75-99)
[2021-05-02] MEDS: SODIUM CHLORIDE 0.9% 1,000 ML IV SCH (16:56)
--- NOTE | 2021-05-02 17:03 | P.CNNES ---
History of Present Illness Consult date: 05/02/21 Requesting physician: Nacho Baird Reason for Consult: CVA History of Present Illness: Patient is a 55-year-old male came to the hospital yesterday at 6:22 PM by ambulance. As per EMS flow sheet, patient has been complaining of right facial drooping on the right side when smiling. Also complained of 7/10 headache, and symptoms started 20 minutes prior to EMS arrival (at around 5:30 PM). Patient had right-sided facial droop and slurred speech. His cancer registry coordinator strength was equal and pupils were equal and reactive. Patient has history of HI and CVA. Patient's blood pressure at the scene was 150/85, pulse rate 88 saturation 96%. Patient's vital signs on arrival was blood pressure 138/73, pulse rate 89, temperature 98.4. Patient underwent computed tomography scan of the head, which revealed no acute abnormality. CTA of head and neck showed no acute abnormality of the CTA head and neck. Moderate stenosis of the proximal right ICA. EKG shows sinus rhythm with premature atrial complexes. Chest x-ray showed moderate congestive changes. Patient's NIH stroke scale was 2 mainly for the facial weakness. Patient's blood tests shows normal WBC, hemoglobin 12.0 and platelets 197. PT/PTT normal, sodium normal potassium 2.9, normal renal functions. Hepatic panel normal. Total cholesterol 143, LDL 57.6, HDL 29. Patient tells me that he went to the bathroom to trim his carias at 4 PM when he noticed right side of the lip was droopy. He also noticed weakness of the right arm and some slurred speech. Patient also had bifrontal headache which she rated 6/10 with nausea but no vomiting. He has light or noise sensitivity. No history of migraines. Patient states his symptoms have improved significantly today. Patient had presented with left-sided weakness and slurred speech on 08/06/2018. His MRI of the brain was negative for any acute stroke. Moderate burden nonspecific white matter change. Patient does take aspirin 81 mg daily at home. Also on Keppra 500 mg twice a day. Lyrica to 25 mg at bedtime, and 50 mg in the morning. Trazodone 150 mg bedtime. Midodrine 10 mg 3 times a day, Requip 3 mg 3 times a day, Depakote 500 mg twice a day Lipitor 80 mg at bedtime, B12 500 mg daily, morphine 2 mg per mL, 10 mg by mouth every 6 hours when necessary. Also on multiple other medical medications. Patient states he mostly stays in the wheelchair for last 2 years since he had undergone lung removal for lung cancer and also had multiple back surgeries. It is hard to walk. He has diabetes for 11 years, hypertension. He started smoking at age 12 and by 89 he was smoking up to one to 2 packs per day she continued to age 53, quit 2 years ago. Patient is also recovering alcoholic, s esha for 11 years. Also quit opiates at the same time. Never did any other drugs. Patient states he has history of 2 prior strokes and TIA. It always affected the left side. Patient states that he has broke his back in 3 places and has 4 rods in 360 cage in the back. Review of Systems As above in detail. Complains of low back pain. Fatigue. Slurred speech, whic h has improved. No chest pain, abdominal pain. He has some nausea but no vomiting or diarrhea. No fever or chills. No chest pain cough. Chronic back pain. He has peripheral neuropathy from diabetes. All other review of systems reviewed and noncontributory. Patient states that he does see double vision for sometime but goes away with his glasses. Past Medical History Past Medical History: Coronary Artery Disease (CAD), Cancer, COPD, CVA/TIA, Diabetes Mellitus, GERD/Reflux, Hyperlipidemia, Hypertension, Myocardial Infarction (HI), Osteoarthritis (OA), Seizure Disorder, Sleep Apnea/CPAP/BIPAP Additional Past Medical History / Comment(s): LAST SEIZURE 2018; lumbar radiculopathy; neuropathy; no CPAP needed per recent sleep study, hx. lung cancer, cellulitis of both lower legs 2020 Last Myocardial Infarction Date:: 10/22/10 History of Any Multi-Drug Resistant Organisms: None Reported Past Surgical History: Back Surgery, Cholecystectomy, Heart Catheterization With Stent Additional Past Surgical History / Comment(s): LAMINECTOMY ,fusion,spinal stimulator LEFT SHOULDER sx, 07-31-15 revison thoracic laminectomy [id number]-t11/ removal of neuro stimulator and wires removed, fused L1&2 to a cage fusion that was previously put in to L3,4,5. May 27/2018. 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 Smoking Status: Former smoker Past Alcohol Use History: None Reported Additional Past Alcohol Use History / Comment(s): STARTED SMOKING 1977. Unable to obtain stopped smoking date. Past Drug Use History: None Reported Additional Drug Use History / Comment(s): HAS A MEDICAL MARIJUANA CARD-no current use. - Past Family History Brother(s) Family Medical History: Deep Vein Thrombosis (DVT) Mother Family Medical History: Osteoarthritis (OA) Additional Family Medical History / Comment(s): psoriases, Parkinsons Father Family Medical History: Coronary Artery Disease (CAD) Additional Family Medical History / Comment(s): heart problems- quad bypass, Medications and Allergies Home Medications Medication Instructions Recorded Confirmed Type Acetaminophen [Tylenol] 650 mg PO Q6H PRN 05/30/19 05/01/21 History Insulin Glargine,Hum.rec.anlog 38 unit SQ BID 05/30/19 05/01/21 History [Basaglar Kwikpen U-100] Linagliptin [Tradjenta] 5 mg PO DAILY 05/30/19 05/01/21 History Midodrine HCl [ProAmatine] 10 mg PO TID@0900,1300,1800 05/30/19 05/01/21 History rOPINIRole HCL [Requip] 3 mg PO TID@0600,1400,2200 05/30/19 05/01/21 History Divalproex Sodium [Depakote] 500 mg PO BID 07/21/19 05/01/21 History Ergocalciferol [Vitamin D2 1,250 mcg PO ANDERSON@0900 07/21/19 05/01/21 History (DRISDOL)] Montelukast [Singulair] 10 mg PO HS 07/21/19 05/01/21 History Famotidine [Pepcid] 20 mg PO BID 11/20/19 05/01/21 History Aspirin 81 mg PO DAILY 02/12/20 05/01/21 History Azelastine HCl 2 spray EA NOSTRIL BID PRN 02/12/20 05/01/21 History Potassium Chloride [K-Tab ER] 20 meq PO Q8H 02/12/20 05/01/21 History bisacodyL 10 mg RECTAL DAILY PRN 02/12/20 05/01/21 History guaiFENesin [Mucinex] 600 mg PO BID 02/12/20 05/01/21 History Magnesium Hydroxide [Milk of 2,400 mg PO DAILY PRN 05/03/20 05/01/21 History Magnesia] levETIRAcetam [Keppra] 1,500 mg PO BID 05/03/20 05/01/21 History Furosemide [Lasix] 40 mg PO BID@0800,1400 09/06/20 05/01/21 History polyethylene glycoL 3350 [Miralax] 17 gm PO DAILY PRN 09/06/20 05/01/21 History Atorvastatin [Lipitor] 80 mg PO HS 10/23/20 05/01/21 History Cyanocobalamin [Vitamin B-12] 500 mcg PO DAILY 10/23/20 05/01/21 History MORPHINE ORAL APOLLO 2mg/mL [Morphine 10 mg PO Q6H PRN 10/23/20 05/01/21 History Oral Soln 2 MG/ML] Mag Hydrox/Aluminum Hyd/Simeth 30 ml PO Q4H PRN 10/23/20 05/01/21 History [Mylanta Maximum Strength Liq] Pregabalin [Lyrica] 225 mg PO HS 10/23/20 05/01/21 History metFORMIN HCL [Glucophage] 1,000 mg PO BID@0900,1700 10/23/20 05/01/21 History Lactulose 20 gm PO BID PRN 12/14/20 05/01/21 History Melatonin 10 mg PO HS 12/14/20 05/01/21 History Metoprolol Tartrate [Lopressor] 12.5 mg PO HS 12/14/20 05/01/21 History Insulin Aspart [NovoLOG Flexpen] 4 units SQ HS PRN 03/04/21 05/01/21 History Insulin Aspart [NovoLOG Flexpen] 8 units SQ AC-BRKFST@0800 03/04/21 05/01/21 History Insulin Aspart [NovoLOG Flexpen] 14 units SQ AC-BID@1200,1700 03/04/21 05/01/21 History Methyl Salicylate/Menthol 1 patch TOPICAL DAILY 03/04/21 05/01/21 History [Salonpas Patch] Pregabalin [Lyrica] 50 mg PO DAILY 03/04/21 05/01/21 History Sennosides/Docusate Sodium [Senna 2 tab PO DAILY@1400 03/04/21 05/01/21 History Plus 8.6-50 mg Tablet] methocarbamoL [Robaxin] 500 mg PO DAILY 03/04/21 05/01/21 History Glimepiride [Amaryl] 1 mg PO BID@0900,1700 05/01/21 05/01/21 History Nitroglycerin Sl Tabs [Nitrostat] 0.4 mg SL Q5M PRN 05/01/21 05/01/21 History metOLazone [Zaroxolyn] 5 mg PO Q48H 05/01/21 05/01/21 History traZODone HCL 150 mg PO HS 05/01/21 05/01/21 History Allergies Allergy/AdvReac Type Severity Reaction Status Date / Time baclofen Allergy Unknown Verified 05/01/21 18:42 cyclobenzaprine Allergy Unknown Verified 05/01/21 18:42 [From Flexeril] Physical Examination - Vital Signs Vital Signs: Vital Signs Temp Pulse Pulse Resp BP BP Pulse Ox 05/02/21 04:00 78 18 136/89 97 05/02/21 02:00 76 18 05/02/21 00:00 76 18 113/55 95 05/01/21 21:38 97.8 F 82 12 130/81 97 05/01/21 20:30 74 12 103/60 95 05/01/21 19:52 97.8 F 18 97 05/01/21 19:45 98.1 F 80 16 123/70 95 05/01/21 18:45 83 18 146/73 93 L 05/01/21 18:30 80 18 133/72 97 05/01/21 18:23 98.4 F 89 18 138/73 97 Intake and Output 05/01/21 05/02/21 05/02/21 22:59 06:59 14:59 Other: Voiding Method Urinal Urinal # Voids 2 1 # Bowel Movements 1 Weight 151.5 kg 149.7 kg Patient is a middle aged male, in no acute distress. Patient is alert awake oriented to time place and person. Patient has slightly slow mentation. Speech is mildly dysarthric and language functions are normal with no aphasia. Attention, concentration and fund of knowledge is adequate. On cranial examination, pupils are round and reacting to light, visual hernandes are full on confrontation, extraocular muscles are intact with no nystagmus. Patient has right facial asymmetry, but appears fairly normal on objective testing, tongue protrudes slightly to the right. Palatal elevation and sensation normal, hearing and shoulder shrug normal, facial sensation normal. On muscle strength testing, there is mild right pronator drift. The strength is normal in the left arm. In the right arm, his deltoid and biceps are normal, triceps 5-, cancer registry coordinator 5-. In the lower extremities, the strength is normal bilaterally except for extension which is very weak about 3+ bilaterally. Patient has peripheral neuropathy. Deep tendon reflexes are absent and plantars are flat. Sensory to touch is equal with no neglect. Cerebellar function showed no ataxia for [id number] testing. No dysdiadochokinesia. Tone and bulk of muscles normal. Gait patient mostly stays in the wheelchair. On general examination, there is no carotid bruit or murmur, S1-S2 audible. Abdomen is soft nontender. Chest is clear. Patient has peripheral edema. Results - Laboratory Findings CBC and BMP: 05/01/21 18:32 05/01/21 18:32 Abnormal Lab Findings: Abnormal Labs 05/01/21 05/01/21 05/01/21 18:26 18:32 18:32 RBC 4.09 L Hgb 12.0 L Hct 35.5 L Potassium 2.9 L Chloride 91 L Carbon Dioxide 36 H BUN 21 H Glucose 236 H POC Glucose (mg/dL) 218 H Triglycerides VLDL Cholesterol, Calc HDL Cholesterol 05/01/21 05/01/21 05/01/21 18:32 21:13 23:00 RBC Hgb Hct Potassium Chloride Carbon Dioxide BUN Glucose POC Glucose (mg/dL) 471 H 297 H Triglycerides 282.0 H VLDL Cholesterol, Calc 56.40 H HDL Cholesterol 29.0 L 05/02/21 05/02/21 06:03 07:38 RBC Hgb Hct Potassium Chloride Carbon Dioxide BUN Glucose POC Glucose (mg/dL) 258 H 229 H Triglycerides VLDL Cholesterol, Calc HDL Cholesterol Assessment and Plan Assessment: * Possible CVA manifesting with mild right facial brachial weakness and slurred speech. * Diabetes * Hypertension * Morbid obesity * X tobacco use Plan: * Patient has been on aspirin 81 mg daily. We will switch to Plavix 75 mg daily. * CTA of head and neck showed no acute abnormality of the CTA head and neck. Moderate stenosis of the proximal right ICA. * Hemoglobin A1c 7.1. This is fairly well controlled although may try to bring it <7.0. * Lipid panel with cholesterol 143, LDL 57.6, HDL 29, triglycerides 282. Continue Lipitor 80 mg. * I discussed with patient about MRI of the brain. Patient states that because of his chronic significant back pain, he cannot lay flat. Patient declined MRI. * 2-D echo to rule out embolic source or PFO. * PT OT and speech therapy. * Telemetry monitoring showing sinus rhythm with sinus bradycardia. * Neurologically clear, pending 2-D echo results.
[2021-05-02 19:45] LABS: Glucose,Whole Blood 180 mg/dL (75-99)
[2021-05-02] MEDS: ATORVASTATIN 80 MG TAB PO SCH (22:11)
[2021-05-02] MEDS: MONTELUKAST 10 MG TAB PO SCH (22:11)
[2021-05-02] MEDS: PREGABALIN 75 MG CAP PO SCH (22:11)
[2021-05-02] MEDS: traZODone HCL 50 MG TAB PO SCH (22:12)
[2021-05-02] MEDS: METOPROLOL TARTRATE 12.5 MG TAB PO SCH (22:12)
[2021-05-02] MEDS: CLOPIDOGREL 75 MG TAB PO SCH (22:22)
[2021-05-03 06:09] LABS: Glucose,Whole Blood 208 mg/dL (75-99)
[2021-05-03] MEDS: metFORMIN 500 MG TAB PO SCH ×2 (06:53→17:30)
[2021-05-03] MEDS: GLIMEPIRIDE 1 MG TAB PO SCH ×3 (06:53→20:33)
[2021-05-03] MEDS: INSULIN DETEMIR (LEVEMIR) 100 UNIT/ML SYR SQ SCH ×2 (06:54→20:34)
[2021-05-03] MEDS: POTASSIUM CHLORIDE ER 20 MEQ TAB.ER PO SCH ×3 (06:54→20:35)
[2021-05-03] MEDS: INSULIN ASPART (NovoLOG) 100 UNIT/ML VIAL SQ SCH ×7 (06:54→20:36)
[2021-05-03] MEDS: SODIUM CHLORIDE 0.9% 1,000 ML IV SCH ×3 (08:00→13:01)
[2021-05-03] MEDS: CLOPIDOGREL 75 MG TAB PO SCH (09:16)
[2021-05-03] MEDS: FUROSEMIDE 40 MG TAB PO SCH ×2 (09:16→16:04)
[2021-05-03] MEDS: LINAGLIPTIN 5 MG TABLET PO SCH (09:16)
[2021-05-03] MEDS: DIVALPROEX 500 MG TABLET.DR PO SCH ×2 (09:16→20:35)
[2021-05-03] MEDS: PREGABALIN 50 MG CAP PO SCH (09:16)
[2021-05-03] MEDS: FAMOTIDINE 20 MG TAB PO SCH ×2 (09:16→20:35)
[2021-05-03] MEDS: ASPIRIN 325 MG TAB PO SCH (09:16)
[2021-05-03] MEDS: CYANOCOBALAMIN 500 MCG TAB PO SCH (09:16)
[2021-05-03] MEDS: methocarbamoL 500 MG TAB PO SCH (09:17)
[2021-05-03] MEDS ORDERED: HYDROmorphone 2 MG TAB PO STA (09:26)
[2021-05-03] MEDS ORDERED: DIAZEPAM 5 MG/ML 2 ML INJ IVP STA (09:27)
--- NOTE | 2021-05-03 11:25 | P.PN ---
Subjective Progress Note Date: 05/03/21 HISTORY OF PRESENT ILLNESS This is a 55-year-old morbidly obese male who resides at [facility] in the [place] under the care of Dr. Ortiz. Patient also follows with Dr. Parker due to ch ronic pain with pain pump in place. He also has history of seizure disorder, CVA 3 with left-sided weakness and significant decreased mobility, history of hypertension, diabetes mellitus type II, hyperlipidemia, coronary artery disease with previous stent to the mid RCA, squamous cell lung cancer status post right middle lobe lobectomy. Patient gives history that he was shaving and looked in the mirror and noticed that he had right facial droop and also then noticed that he had a little weakness in his right arm. He normally has left-sided weakness secondary to CVAs. Patient states he will not undergo MRI as he finds it too hard to lay flat for the procedure. Patient presented to [facility]. Patient was afebrile, heart rate in 80s, blood pressure 138/73, pulse ox 97% on room air. WBC 5.9, hemoglobin 12, platelet count 197. Sodium 137, potassium 2.9, chloride 91, CO2 36, BUN 21 creatinine 0.74. Blood sugar 236. Liver function tests were normal. Troponin negative. Triglycerides 282, cholesterol 143, LDL 57, HDL 29. EKG was a sinus rhythm at 83 bpm, no ST changes. CAT scan of the brain showed no acute intracranial abnormality. CTA of the head and neck reveal no acute abnormality. Moderate stenosis of the right proximal RCA Chest x-ray reveals moderate congestive changes. Patient was started on full strength aspirin, admitted to the cardiac stepdown unit, consult with neurology, speech, OT and PT. 05/03: A Chin has been seen by neurology for possible CVA with recommendations to switch patient's Plavix any 5 mg daily. Regarding MRI, patient is willing to try it for MRI today and we will provide a Valium IV and Dilaudid IV 1 hour prior to MRI and will also include the lumbar spine. Patient has had increased in his pain pump and continues to have lumbar pain. He has been afebrile, heart rate 80, blood pressure 156/84, pulse ox 98% on room air. Blood sugars are running between 144 and 208. Echocardiogram is pending. Consult added for cardiology for CLARY tomorrow to rule out cryptogenic stroke. Patient continues to have right-sided facial droop and mild weakness on the right upper extremity Discharge plan remains to return to [facility] most likely on Wednesday. REVIEW OF SYSTEMS Constitutional: No fever, no chills, no night sweats. No weight change. No weakness, fatigue or lethargy. No daytime sleepiness. EENT: No headache. No blurred vision or double vision, no loss of vision. No loss of Hearing, no ringing in the ears, no dizziness. No nasal drainage or congestion. No epistaxis. No sore throat. Lungs: No shortness of breath, cough, no sputum production. No wheezing. Cardiovascular: No chest pain, no lower extremity edema. No palpitations. No paroxysmal nocturnal dyspnea. No orthopnea. No lightheadedness or dizziness. No syncopal episodes. Abdominal: No abdominal pain. No nausea, vomiting. No diarrhea. No constipation. No bloody or tarry stools.. No loss of appetite. Genitourinary: No dysuria, increased frequency, urgency. No urinary retention. Musculoskeletal: No myalgias. No muscle weakness, no gait dysfunction, no frequent falls. No back pain. No neck pain. Integumentary: No wounds, no lesions. No rash or pruritus. No unusual bruising. No change in hair or nails. Neurologic: No aphasia. Right-sided facial droop. No change in mentation. No head injury. No headache. No paralysis. No paresthesia. Psychiatric: No depression. No anxiety. No mood swings. Endocrine: No abnormal blood sugars. No weight change. No excessive sweating or thirst. No cold intolerance. PHYSICAL EXAMINATION Gen: This is a 55-year-old male. He is resting in chair and appears to be comfortable at this time. HEENT: Head is atraumatic, normocephalic. Pupils equal, round. Sclerae is anicteric. Right-sided facial droop NECK: Supple. No JVD. No lymphadenopathy. No thyromegaly. LUNGS: Clear to auscultation. Diminished in the bases. No wheezes or rhonchi. No intercostal retractions. HEART: Regular rate and rhythm. No murmur. ABDOMEN: Soft. Bowel sounds are present. No masses. No tenderness. EXTREMITIES: No pedal edema. No calf tenderness. NEUROLOGICAL: Patient is awake, alert and oriented 3. Some slurring of speech is noted which I believe his baseline. Mild weakness of the left upper extremity Cranial nerves 2 through 12 are grossly intact. ASSESSMENT AND PLAN 1. Right-sided weakness rule out CVA, continue cardiac monitoring, consult with neurology consult, neuro checks per protocol. Continue aspirin 325 mg daily, Lipitor 80 mg at bedtime, Plavix 75 mg daily added. MRI of the brain today and consult with cardiology for CLARY for cryptogenic stroke. 2. History of CVA 3 with residual left-sided paraplegia. Continue aspirin, Lipitor. 3. History of non-small cell lung cancer status post right middle lobe lobectomy. 4. Chronic pain under the care of Dr. Parker. Pain pump is in place. Continue Robaxin, Lyrica 50 mg daily and 225 at bedtime, trazodone 150 mg at bedtime. MRI of the lumbar spine. Patient will be premedicated with 10 mg of IV Valium and 2 mg of IV Dilaudid. 5. Hypertension. Continue Lasix 40 mg twice daily, Lopressor 12.5 mg at bedtime. 8. Hyperlipidemia. Continue atorvastatin. 9. Diabetes mellitus type 2. Continue NovoLog 4 units at bedtime, 8 units with breakfast, 14 units at lunch and supper, Levemir 38 units twice daily, Tradjenta 5 mg daily, metformin 1000 g twice daily, NovoLog scale before meals and at bedtime. 10. Diabetic neuropathy. Continue trazodone, Lyrica. 11. History of coronary artery disease status post stent in the mid RCA. Continue aspirin, Lipitor 80 mg at bedtime. 12. Restless leg syndrome. Continue Requip 3 mg 3 times daily. 13. Seizure disorder. Continue Depakote 500 mg 2 times daily, Keppra 1500 mg daily. 14. GI prophylaxis and gastroesophageal reflux disease. Continue Pepcid 20 mg twice daily. DISCHARGE PLAN Return to [facility] on Wednesday most likely. Impression and plan of care have been directed as dictated by the signing physician. Eleonora Almeida nurse practitioner acting as scribe for signing physician. Objective - Vital Signs Vital signs: Vital Signs Temp 98.0 F 05/02/21 16:00 Pulse 67 05/03/21 04:00 Resp 18 05/03/21 04:00 BP 115/69 05/03/21 04:00 Pulse Ox 98 05/03/21 04:00 Intake & Output 05/02/21 05/03/21 05/03/21 18:59 06:59 18:59 Intake Total 780 540 480 Balance 780 540 480 Weight 150.6 kg Intake: Oral 780 540 480 Other: Voiding Method Urinal # Voids 1 1 2 # Bowel Movements 1 1 - Labs CBC & Chem 7: 05/01/21 18:32 05/03/21 01:31 Labs: Abnormal Lab Results - Last 24 Hours (Table) 05/01/21 05/01/21 05/02/21 Range/Units 18:32 18:32 11:40 POC Glucose (mg/dL) 144 H (75-99) mg/dL Hemoglobin A1c 7.1 H (4.0-6.0) % Triglycerides 282.0 H (0.0-149.0) mg/dL VLDL Cholesterol, Calc 56.40 H (5.00-40.00) mg/dL HDL Cholesterol 29.0 L (40.0-60.0) mg/dL 05/02/21 05/02/21 05/03/21 Range/Units 16:42 19:43 06:06 POC Glucose (mg/dL) 154 H 180 H 208 H (75-99) mg/dL Hemoglobin A1c (4.0-6.0) % Triglycerides (0.0-149.0) mg/dL VLDL Cholesterol, Calc (5.00-40.00) mg/dL HDL Cholesterol (40.0-60.0) mg/dL
[2021-05-03 11:42] LABS: Glucose,Whole Blood 196 mg/dL (75-99)
[2021-05-03] MEDS: SENNOSIDES-DOCUSATE SODIUM 1 EACH TAB PO SCH (12:55)
--- NOTE | 2021-05-03 13:12 | P.GSCN ---
History of Present Illness Consult date: 05/03/21 Reason for Consult: Carotid stenosis. History of present illness: Patient is a 55-year-old male who is evaluated today in reference to possible hemodynamically significant carotid stenosis. The patient has a history of experiencing right-sided facial droop as well as some left hemiparesis which all have resolved. He had undergone a CT a of the neck which demonstrated "moderate" carotid occlusive disease. Since his admission the patient's symptoms have completely resolved. Patient has a significant substance abuse history including use of tobacco, alcohol as well as nonprescription opiates. Patient also has a history of lung cancer and is status post lobectomy. Physical examination demonstrated no neurologic deficit at this time. Carotids are free of bruits. I did review the results of the CTA as well as laboratory values. I cannot find that the patient has ever had a carotid duplex and this is been scheduled to be performed today. The patient is also scheduled for an MRI of his brain. We will continue to follow the patient during his hospital stay. The patient currently is on both aspirin and statin therapy. Past Medical History Past Medical History: Coronary Artery Disease (CAD), Cancer, COPD, CVA/TIA, Diabetes Mellitus, GERD/Reflux, Hyperlipidemia, Hypertension, Myocardial Infarction (OR), Osteoarthritis (OA), Seizure Disorder, Sleep Apnea/CPAP/BIPAP Additional Past Medical History / Comment(s): LAST SEIZURE 2018; lumbar radiculopathy; neuropathy; no CPAP needed per recent sleep study, hx. lung cancer, cellulitis of both lower legs 2020 Last Myocardial Infarction Date:: 10/22/10 History of Any Multi-Drug Resistant Organisms: None Reported Past Surgical History: Back Surgery, Cholecystectomy, Heart Catheterization With Stent Additional Past Surgical History / Comment(s): LAMINECTOMY ,fusion,spinal stimulator LEFT SHOULDER sx, 07-31-15 revison thoracic laminectomy t10- t11/removal of neuro stimulator and wires removed, fused L1&2 to a cage fusion that was previously put in to L3,4,5. May 27/2018. 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 Smoking Status: Former smoker Past Alcohol Use History: None Reported Additional Past Alcohol Use History / Comment(s): STARTED SMOKING 1977. Unable to obtain stopped smoking date. Past Drug Use History: None Reported Additional Drug Use History / Comment(s): HAS A MEDICAL MARIJUANA CARD-no c urrent use. - Past Family History Brother(s) Family Medical History: Deep Vein Thrombosis (DVT) Mother Family Medical History: Osteoarthritis (OA) Additional Family Medical History / Comment(s): psoriases, Parkinsons Father Family Medical History: Coronary Artery Disease (CAD) Additional Family Medical History / Comment(s): heart problems- quad bypass, Medications and Allergies Home Medications Medication Instructions Recorded Confirmed Type Acetaminophen [Tylenol] 650 mg PO Q6H PRN 05/30/19 05/01/21 History Insulin Glargine,Hum.rec.anlog 38 unit SQ BID 05/30/19 05/01/21 History [Basaglar Kwikpen U-100] Linagliptin [Tradjenta] 5 mg PO DAILY 05/30/19 05/01/21 History Midodrine HCl [ProAmatine] 10 mg PO TID@0900,1300,1800 05/30/19 05/01/21 History rOPINIRole HCL [Requip] 3 mg PO TID@0600,1400,2200 05/30/19 05/01/21 History Divalproex Sodium [Depakote] 500 mg PO BID 07/21/19 05/01/21 History Ergocalciferol [Vitamin D2 1,250 mcg PO ANDERSON@0900 07/21/19 05/01/21 History (DRISDOL)] Montelukast [Singulair] 10 mg PO HS 07/21/19 05/01/21 History Famotidine [Pepcid] 20 mg PO BID 11/20/19 05/01/21 History Aspirin 81 mg PO DAILY 02/12/20 05/01/21 History Azelastine HCl 2 spray EA NOSTRIL BID PRN 02/12/20 05/01/21 History Potassium Chloride [K-Tab ER] 20 meq PO Q8H 02/12/20 05/01/21 History bisacodyL 10 mg RECTAL DAILY PRN 02/12/20 05/01/21 History guaiFENesin [Mucinex] 600 mg PO BID 02/12/20 05/01/21 History Magnesium Hydroxide [Milk of 2,400 mg PO DAILY PRN 05/03/20 05/01/21 History Magnesia] levETIRAcetam [Keppra] 1,500 mg PO BID 05/03/20 05/01/21 History Furosemide [Lasix] 40 mg PO BID@0800,1400 09/06/20 05/01/21 History polyethylene glycoL 3350 [Miralax] 17 gm PO DAILY PRN 09/06/20 05/01/21 History Atorvastatin [Lipitor] 80 mg PO HS 10/23/20 05/01/21 History Cyanocobalamin [Vitamin B-12] 500 mcg PO DAILY 10/23/20 05/01/21 History MORPHINE ORAL APOLLO 2mg/mL [Morphine 10 mg PO Q6H PRN 10/23/20 05/01/21 History Oral Soln 2 MG/ML] Mag Hydrox/Aluminum Hyd/Simeth 30 ml PO Q4H PRN 10/23/20 05/01/21 History [Mylanta Maximum Strength Liq] Pregabalin [Lyrica] 225 mg PO HS 10/23/20 05/01/21 History metFORMIN HCL [Glucophage] 1,000 mg PO BID@0900,1700 10/23/20 05/01/21 History Lactulose 20 gm PO BID PRN 12/14/20 05/01/21 History Melatonin 10 mg PO HS 12/14/20 05/01/21 History Metoprolol Tartrate [Lopressor] 12.5 mg PO HS 12/14/20 05/01/21 History Insulin Aspart [NovoLOG Flexpen] 4 units SQ HS PRN 03/04/21 05/01/21 History Insulin Aspart [NovoLOG Flexpen] 8 units SQ AC-BRKFST@0800 03/04/21 05/01/21 History Insulin Aspart [NovoLOG Flexpen] 14 units SQ AC-BID@1200,1700 03/04/21 05/01/21 History Methyl Salicylate/Menthol 1 patch TOPICAL DAILY 03/04/21 05/01/21 History [Salonpas Patch] Pregabalin [Lyrica] 50 mg PO DAILY 03/04/21 05/01/21 History Sennosides/Docusate Sodium [Senna 2 tab PO DAILY@1400 06/15/21 08/12/21 History Plus 8.6-50 mg Tablet] methocarbamoL [Robaxin] 500 mg PO DAILY 03/04/21 05/01/21 History Glimepiride [Amaryl] 1 mg PO BID@0900,1700 05/01/21 05/01/21 History Nitroglycerin Sl Tabs [Nitrostat] 0.4 mg SL Q5M PRN 05/01/21 05/01/21 History metOLazone [Zaroxolyn] 5 mg PO Q48H 05/01/21 05/01/21 History traZODone HCL 150 mg PO HS 05/01/21 05/01/21 History Allergies Allergy/AdvReac Type Severity Reaction Status Date / Time baclofen Allergy Unknown Verified 05/01/21 18:42 cyclobenzaprine Allergy Unknown Verified 05/01/21 18:42 [From Flexeril] Surgical - Exam Osteopathic Statement: *. No significant issues noted on an osteopathic structural exam other than those noted in the History and Physical/Consult. Vital Signs Temp Pulse Resp BP Pulse Ox 98.4 F 89 18 138/73 97 05/01/21 18:23 05/01/21 18:23 05/01/21 18:23 05/01/21 18:23 05/01/21 18:23 Results - Labs 05/01/21 18:32 05/03/21 01:31 Abnormal Lab Results - Last 24 Hours (Table) 05/01/21 05/02/21 05/02/21 Range/Units 18:32 16:42 19:43 POC Glucose (mg/dL) 154 H 180 H (75-99) mg/dL Hemoglobin A1c 7.1 H (4.0-6.0) % 05/03/21 05/03/21 Range/Units 06:06 11:40 POC Glucose (mg/dL) 208 H 196 H (75-99) mg/dL Hemoglobin A1c (4.0-6.0) % Diabetes panel 05/01/21 05/03/21 Range/Units 18:32 01:31 Potassium 3.6 (3.5-5.1) mmol/L Hemoglobin A1c 7.1 H (4.0-6.0) % Pituitary panel 05/03/21 Range/Units 01:31 Potassium 3.6 (3.5-5.1) mmol/L Adrenal panel 05/03/21 Range/Units 01:31 Potassium 3.6 (3.5-5.1) mmol/L
--- NOTE | 2021-05-03 13:26 | ECHOF ---
Referral Reason:CVA MEASUREMENTS -------- HEIGHT: 182.9 cm WEIGHT: 150.6 kg BP: 115/69 IVSd: 1.5 cm (0.6 - 1.1) LVIDd: 3.8 cm (3.9 - 5.3) LVPWd: 1.7 cm (0.6 - 1.1) IVSs: 1.9 cm LVIDs: 2.8 cm LVPWs: 2.3 cm Ao Diam: 3.9 cm (2.0 - 3.7) AV Cusp: 1.8 cm (1.5 - 2.6) LA Diam: 3.6 cm (2.7 - 3.8) MV EXCURSION: 16.865 mm (> 18.000) MV EF SLOPE: 118 mm/s (70 - 150) EPSS: 0.6 cm MV E Rupert: 0.60 m/s MV DecT: 249 ms MV A Rupert: 0.76 m/s MV E/A Ratio: 0.79 RAP: 5.00 mmHg RVSP: 14.29 mmHg FINDINGS -------- Sinus rhythm. This was a technically difficult study with suboptimal views. The left ventricular size is normal. There is moderate concentric left ventricular hypertrophy. O verall left ventricular systolic function is normal with, an EF between 55 - 60 %. The RV was not well visualized. The left atrial size is normal. The right atrium was not well visualized. Unable to perform agitated saline study, patient was scanned sitting up and had TDS images. 5.0mg of Lumason was utilized for enhancement of images The aortic valve was not well visualized. There is no evidence of aortic regurgitation. There is no evidence of aortic stenosis. The mitral valve was not well visualized. Mild mitral regurgitation is present. The tricuspid valve was not well visualized. Mild tricuspid regurgitation present. There is no ev idence of pulmonary hypertension. The right ventricular systolic pressure, as measured by Doppler, is 14.29mmHg. There is no pulmonic regurgitation present. The aortic root size is normal. IVC Not well visulized. There is no pericardial effusion. CONCLUSIONS -------- 1. The left ventricular size is normal. 2. There is moderate concentric left ventricular hypertrophy. 3. Overall left ventricular systolic function is normal with, an EF between 55 - 60 %. 4. Unable to perform agitated saline study, patient was scanned sitting up and had TDS images. 5. Mild mitral regurgitation is present. 6. Mild tricuspid regurgitation present. TONGUER: Freda Harvey RDCS
[2021-05-03] MEDS: ACETAMINOPHEN TAB 325 MG TAB PO PRN (16:03)
--- NOTE | 2021-05-03 16:39 | US ---
EXAMINATION TYPE: US carotid duplex BILAT DATE OF EXAM: 05/03/2021 COMPARISON: CTA 05/01/2021 Carotid ultrasound 08/06/2018 CLINICAL HISTORY: Rt ICA stenosis. EXAM MEASUREMENTS: RIGHT: Peak Systolic Velocity (PSV) cm/sec ----- Right CCA: 85.6 ----- Right ICA: 143.6 ----- Right ECA: 157.5 ICA/CCA ratio: 1.7 RIGHT: End Diastole cm/sec ----- Right CCA: 13.1 ----- Right ICA: 15.6 ----- Right ECA: 9.7 LEFT: Peak Systolic Velocity (PSV) cm/sec ----- Left CCA: 89.2 ----- Left ICA: 145.7 ----- Left ECA: 151.6 ICA/CCA ratio: 1.6 LEFT: End Diastole cm/sec ----- Left CCA: 24.5 ----- Left ICA: 17.5 ----- Left ECA: 9.7 VERTEBRALS (direction of flow): Right Vertebral: Antegrade Left Vertebral: Antegrade Rhythm: Normal Shadowing plaque at bulbs bilaterally. Mildly elevated velocities ICA & ECA's bilaterally. IMPRESSION: Bilateral plaque formation. Images and measurements suggest 50-70% stenosis in both internal carotid arteries. There is progression of disease at increased velocity compared to old exam. There is antegrade flow in the vertebral arteries. NASCET criteria was used in interpretation of this exam? Criteria for Assigning % of Stenosis / Diameter reduction (Estimation based on the indirect measurements of the internal carotid artery velocities (ICA PSV). 1. Normal (no stenosis)=ICA PSV < 125 cm/s: ratio < 2.0: ICA EDV<40 cm/s. 2. Less than 50% stenosis=ICA PSV < 125 cm/s: ratio < 2.0: ICA EDV<40 cm/s. 3. 50 to 69% stenosis=ICA PSV of 125 to 230 cm/s: ration 2.0 ? 4.0: ICA EDV 40-100 cm/s. 4. Greater than 70% stenosis to near occlusion= ICA PSV > 230 cm/s: ratio > 4.0: ICA EDV > 100 cm/s. 5. Near occlusion= ICA PSV velocities may be low or undetectable: variable ratio and ICA EDV. 6. Total occlusion=unable to detect flow.
[2021-05-03 16:43] LABS: Glucose,Whole Blood 248 mg/dL (75-99)
[2021-05-03] MEDS: MORPHINE SULFATE IR 15 MG TABLET PO PRN (17:30)
[2021-05-03 19:39] LABS: Glucose,Whole Blood 215 mg/dL (75-99)
[2021-05-03] MEDS: METOPROLOL TARTRATE 12.5 MG TAB PO SCH (20:34)
[2021-05-03] MEDS: traZODone HCL 50 MG TAB PO SCH (20:34)
[2021-05-03] MEDS: PREGABALIN 75 MG CAP PO SCH (20:34)
[2021-05-03] MEDS: MONTELUKAST 10 MG TAB PO SCH (20:35)
[2021-05-03] MEDS: ATORVASTATIN 80 MG TAB PO SCH (20:35)
[2021-05-04 06:36] LABS: Glucose,Whole Blood 173 mg/dL (75-99)
[2021-05-04] MEDS: INSULIN DETEMIR (LEVEMIR) 100 UNIT/ML SYR SQ SCH ×2 (06:50→21:44)
[2021-05-04] MEDS: metOLazone 5 MG TAB PO SCH (06:51)
[2021-05-04] MEDS: MORPHINE SULFATE IR 15 MG TABLET PO PRN ×2 (06:51→17:34)
[2021-05-04] MEDS: GLIMEPIRIDE 1 MG TAB PO SCH ×2 (06:51→17:34)
[2021-05-04] MEDS: POTASSIUM CHLORIDE ER 20 MEQ TAB.ER PO SCH ×3 (06:51→21:44)
[2021-05-04] MEDS: metFORMIN 500 MG TAB PO SCH ×2 (06:51→17:33)
[2021-05-04] MEDS: INSULIN ASPART (NovoLOG) 100 UNIT/ML VIAL SQ SCH ×7 (06:53→21:44)
[2021-05-04] MEDS: SODIUM CHLORIDE 0.9% 1,000 ML IV SCH ×2 (08:40→08:48)
[2021-05-04] MEDS: CLOPIDOGREL 75 MG TAB PO SCH (08:46)
[2021-05-04] MEDS: DIVALPROEX 500 MG TABLET.DR PO SCH ×2 (08:46→20:04)
[2021-05-04] MEDS: LINAGLIPTIN 5 MG TABLET PO SCH (08:46)
[2021-05-04] MEDS: FUROSEMIDE 40 MG TAB PO SCH (08:46)
[2021-05-04] MEDS: ASPIRIN 325 MG TAB PO SCH (08:46)
[2021-05-04] MEDS: CYANOCOBALAMIN 500 MCG TAB PO SCH (08:47)
[2021-05-04] MEDS: FAMOTIDINE 20 MG TAB PO SCH ×2 (08:47→20:04)
[2021-05-04] MEDS: methocarbamoL 500 MG TAB PO SCH (08:47)
[2021-05-04] MEDS: PREGABALIN 50 MG CAP PO SCH (08:47)
[2021-05-04] MEDS ORDERED: ERGOCALCIFEROL 1,250 MCG (50,000 IU) CAPSULE PO SCH (09:00)
[2021-05-04] MEDS ORDERED: MORPHINE SULFATE IR 15 MG TABLET PO STA (09:23)
--- NOTE | 2021-05-04 10:08 | P.PN ---
Subjective Progress Note Date: 05/03/21 05/03/2021: This is a tele-neurology follow-up performed today on 05/03/2021. Patient is sitting in the recliner. Patient is feeling better. Patient's primary physician has initiated an MRI of the brain. No new focal symptoms. No headache. Objective - Vital Signs Vital signs: Vital Signs Temp 97.5 F L 05/04/21 00:00 Pulse 78 05/04/21 04:00 Resp 16 05/04/21 04:00 BP 119/72 05/04/21 04:00 Pulse Ox 92 L 05/04/21 04:00 Intake & Output 05/03/21 05/04/21 05/04/21 18:59 06:59 18:59 Intake Total 960 777 240 Balance 960 777 240 Weight 150.9 kg Intake: Oral 960 777 240 Other: Voiding Method Urinal Urinal # Voids 1 1 1 # Bowel Movements 1 1 - Exam Patient is alert and awake in no distress. Speech is less dysarthric. No aphasia. On cranial nerve examination his pupils are round and reacting. Face has right-sided droop. Tongue protrudes slightly to the right. Pupils are round and reacting. Visual hernandes are full. On muscle strength testing patient has right pronation no drift. The strength is normal. Sensations equal. - Labs CBC & Chem 7: 05/01/21 18:32 05/03/21 01:31 Labs: Abnormal Lab Results - Last 24 Hours (Table) 05/03/21 05/03/21 05/03/21 Range/Units 11:40 16:41 19:34 POC Glucose (mg/dL) 196 H 248 H 215 H (75-99) mg/dL 05/04/21 Range/Units 06:35 POC Glucose (mg/dL) 173 H (75-99) mg/dL Assessment and Plan Assessment: * Possible CVA manifesting with mild right facial brachial weakness and slurred speech. * Diabetes * Hypertension * Morbid obesity * X tobacco use Plan: * Patient has been on aspirin 81 mg daily. We will switch to Plavix 75 mg daily. * CTA of head and neck showed no acute abnormality of the CTA head and neck. Moderate stenosis of the proximal right ICA. Patient has symptoms on the ipsilateral side therefore right ICA stenosis probably asymptomatic. Patient seen by vascular surgery, who have initiated a carotid Doppler. * MRI of the brain pending. * Hemoglobin A1c 7.1. This is fairly well controlled although may try to bring it <7.0. * Lipid panel with cholesterol 143, LDL 57.6, HDL 29, triglycerides 282. Continue Lipitor 80 mg. * I discussed with patient about MRI of the brain. Patient states that because of his chronic significant back pain, he cannot lay flat. Patient declined MRI. * 2-D echo revealed normal left ventricular size. Moderate concentric LVH. EF between 55-60%. Unable to perform agitated saline study, patient was scanned sitting up and has TDS images. * PT OT and speech therapy. * Telemetry monitoring showing sinus rhythm with sinus bradycardia. * We will follow.
[2021-05-04] MEDS: FUROSEMIDE 10 MG/ML 4 ML VIAL IV SCH ×3 (11:24→23:53)
[2021-05-04 11:40] LABS: Glucose,Whole Blood 147 mg/dL (75-99)
--- NOTE | 2021-05-04 12:17 | P.PN ---
Subjective Progress Note Date: 05/04/21 HISTORY OF PRESENT ILLNESS This is a 55-year-old morbidly obese male who resides at [facility] in the [place] under the care of Dr. Ortiz. Patient also follows with Dr. Parker due to ch ronic pain with pain pump in place. He also has history of seizure disorder, CVA 3 with left-sided weakness and significant decreased mobility, history of hypertension, diabetes mellitus type II, hyperlipidemia, coronary artery disease with previous stent to the mid RCA, squamous cell lung cancer status post right middle lobe lobectomy. Patient gives history that he was shaving and looked in the mirror and noticed that he had right facial droop and also then noticed that he had a little weakness in his right arm. He normally has left-sided weakness secondary to CVAs. Patient states he will not undergo MRI as he finds it too hard to lay flat for the procedure. Patient presented to [facility] emergency center. Patient was afebrile, heart rate in 80s, blood pressure 138/73, pulse ox 97% on room air. WBC 5.9, hemoglobin 12, platelet count 197. Sodium 137, potassium 2.9, chloride 91, CO2 36, BUN 21 creatinine 0.74. Blood sugar 236. Liver function tests were normal. Troponin negative. Triglycerides 282, cholesterol 143, LDL 57, HDL 29. EKG was a sinus rhythm at 83 bpm, no ST changes. CAT scan of the brain showed no acute intracranial abnormality. CTA of the head and neck reveal no acute abnormality. Moderate stenosis of the right proximal RCA Chest x-ray reveals moderate congestive changes. Patient was started on full strength aspirin, admitted to the cardiac stepdown unit, consult with neurology, speech, OT and PT. 05/03: Patient has been seen by neurology for possible CVA with recommendations to switch patient's Plavix any 5 mg daily. Regarding MRI, patient is willing to try it for MRI today and we will provide a Valium IV and Dilaudid IV 1 hour prior to MRI and will also include the lumbar spine. Patient has had increased in his pain pump and continues to have lumbar pain. He has been afebrile, heart rate 80, blood pressure 156/84, pulse ox 98% on room air. Blood sugars are running between 144 and 208. Echocardiogram is pending. Consult added for cardiology for CLARY tomorrow to rule out cryptogenic stroke. Patient continues to have right-sided facial droop and mild weakness on the right upper extremity Discharge plan remains to return to [facility] most likely on Wednesday. 05/04: Patient went for MRI but was unable to fit in the machine and this was canceled. [employer] rep will be in to check his pain pump. Patient complains o f significant pain on the lower back between shoulder blades feet and legs. He also complains of headache. Additional dose of morphine IR given today. Carotid ultrasound revealed 50-70% stenosis in both internal carotid arteries. There is progression of disease. Patient has been seen by Dr. Timmons from vascular surgery. Echocardiogram reveals EF of 55-60% with moderate concentric left ventricular hypertrophy, mild mitral regurgitation, mild tricuspid regurgitation. Patient remains afebrile, heart rate 95, blood pressure 115/65, pulse ox 94% on room air. Capillary blood glucose running between 147 and 248. Cardiology consult is pending. Discharge plan remains to return to [facility] on Wednesday if all testing is completed. REVIEW OF SYSTEMS Constitutional: No fever, no chills, no night sweats. No weight change. No weakness, fatigue or lethargy. No daytime sleepiness. EENT: No headache. No blurred vision or double vision, no loss of vision. No loss of Hearing, no ringing in the ears, no dizziness. No nasal drainage or congestion. No epistaxis. No sore throat. Lungs: No shortness of breath, cough, no sputum production. No wheezing. Cardiovascular: No chest pain, no lower extremity edema. No palpitations. No paroxysmal nocturnal dyspnea. No orthopnea. No lightheadedness or dizziness. No syncopal episodes. Abdominal: No abdominal pain. No nausea, vomiting. No diarrhea. No constipation. No bloody or tarry stools.. No loss of appetite. Genitourinary: No dysuria, increased frequency, urgency. No urinary retention. Musculoskeletal: No myalgias. Reports muscle weakness, chronic gait dysfunction, no frequent falls. Reports back pain. No neck pain. Integumentary: No wounds, no lesions. No rash or pruritus. No unusual bruising . No change in hair or nails. Neurologic: No aphasia. Right-sided facial droop. No change in mentation. No head injury. No headache. No paralysis. No paresthesia. Psychiatric: No depression. No anxiety. No mood swings. Endocrine: No abnormal blood sugars. No weight change. No excessive sweating or thirst. No cold intolerance. PHYSICAL EXAMINATION Gen: This is a 55-year-old male. He is resting in chair and appears to be comfortable at this time. HEENT: Head is atraumatic, normocephalic. Pupils equal, round. Sclerae is anicteric. Right-sided facial droop NECK: Supple. No JVD. No lymphadenopathy. No thyromegaly. LUNGS: Clear to auscultation. Diminished in the bases. No wheezes or rhonchi. No intercostal retractions. HEART: Regular rate and rhythm. No murmur. ABDOMEN: Soft. Bowel sounds are present. No masses. No tenderness. EXTREMITIES: No pedal edema. No calf tenderness. NEUROLOGICAL: Patient is awake, alert and oriented 3. Some slurring of speech is noted which I believe his baseline. Mild weakness of the left upper extremity Cranial nerves 2 through 12 are grossly intact. ASSESSMENT AND PLAN 1. Right-sided weakness possible CVA, continue cardiac monitoring, consult with neurology consult, neuro checks per protocol. Continue aspirin 325 mg daily, Lipitor 80 mg at bedtime, Plavix 75 mg daily added. Consult with cardiology for CLARY for cryptogenic stroke. 2. History of CVA 3 with residual left-sided paraplegia. Continue aspirin, Lipitor. 3. History of non-small cell lung cancer status post right middle lobe lobectomy. 4. Chronic pain under the care of Dr. Parker. Pain pump is in place. Continue Robaxin, Lyrica 50 mg daily and 225 at bedtime, trazodone 150 mg at bedtime. MRI of the lumbar spine. Patient will be premedicated with 10 mg of IV Valium and 2 mg of IV Dilaudid. [employer] rep to check pain pump. 5. Hypertension. Continue Lasix 40 mg twice daily, Lopressor 12.5 mg at bedtime. 8. Hyperlipidemia. Continue atorvastatin. 9. Diabetes mellitus type 2. Continue NovoLog 4 units at bedtime, 8 units with breakfast, 14 units at lunch and supper, Levemir 38 units twice daily, Tradjenta 5 mg daily, metformin 1000 g twice daily, NovoLog scale before meals and at bedtime. 10. Diabetic neuropathy. Continue trazodone, Lyrica. 11. History of coronary artery disease status post stent in the mid RCA. Continue aspirin, Lipitor 80 mg at bedtime. 12. Restless leg syndrome. Continue Requip 3 mg 3 times daily. 13. Seizure disorder. Continue Depakote 500 mg 2 times daily, Keppra 1500 mg daily. 14. GI prophylaxis and gastroesophageal reflux disease. Continue Pepcid 20 mg twice daily. DISCHARGE PLAN Return to [facility] on Wednesday most likely. Impression and plan of care have been directed as dictated by the signing mindi cisneros. Eleonora Almeida nurse practitioner acting as scribe for signing physician. Objective - Vital Signs Vital signs: Vital Signs Temp 97.5 F L 05/04/21 00:00 Pulse 78 05/04/21 04:00 Resp 16 05/04/21 04:00 BP 119/72 05/04/21 04:00 Pulse Ox 92 L 05/04/21 04:00 Intake & Output 05/03/21 05/04/21 05/04/21 18:59 06:59 18:59 Intake Total 960 777 240 Balance 960 777 240 Weight 150.9 kg Intake: Oral 960 777 240 Other: Voiding Method Urinal Urinal # Voids 1 1 1 # Bowel Movements 1 1 - Labs CBC & Chem 7: 05/01/21 18:32 05/03/21 01:31 Labs: Abnormal Lab Results - Last 24 Hours (Table) 05/03/21 05/03/21 05/03/21 Range/Units 11:40 16:41 19:34 POC Glucose (mg/dL) 196 H 248 H 215 H (75-99) mg/dL 05/04/21 Range/Units 06:35 POC Glucose (mg/dL) 173 H (75-99) mg/dL
--- NOTE | 2021-05-04 12:20 | P.DS ---
Providers Date of admission: 05/01/21 19:50 Expected date of discharge: 05/05/21 Attending physician: Cal Handy Consults: 05/01/21 19:52 Consult Physician Routine Consulting Provider: Rissa Nolan Consult Reason/Comments: CVA Do you want consulting provider notified?: Yes 05/03/21 09:23 Consult Physician Routine Consulting Provider: Jez Mccarthy Consult Reason/Comments: moderate R ICA stenosis Do you want consulting provider notified?: Yes 05/03/21 09:24 Consult Physician Routine Consulting Provider: Melva Pritchett Consult Reason/Comments: CLARY for cryptogenic stroke Do you want consulting provider notified?: Yes 05/03/21 14:02 Consult Physician Routine Consulting Provider: Lara Woodard Consult Reason/Comments: patients pain pump was exposed to MRI and needs to be checked Do you want consulting provider notified?: Yes Primary care physician: [facility] Course: HISTORY OF PRESENT ILLNESS This is a 55-year-old morbidly obese male who resides at [facility] in the [place] under the care of Dr. Ortiz. Patient also follows with Dr. Parker due to chronic pain with pain pump in place. He also has history of seizure disorder, CVA 3 with left-sided weakness and significant decreased mobility, history of hypertension, diabetes mellitus type II, hyperlipidemia, coronary artery disease with previous stent to the mid RCA, squamous cell lung cancer status post right middle lobe lobectomy. Patient gives history that he was shaving and looked in the mirror and noticed that he had right facial droop and also then noticed that he had a little weakness in his right arm. He normally has left-sided weakness secondary to CVAs. Patient states he will not undergo MRI as he finds it too hard to lay flat for the procedure. Patient presented to [facility] emergency center. Patient was afebrile, heart rate in 80s, blood pressure 138/73, pulse ox 97% on room air. WBC 5.9, hemoglobin 12, platelet count 197. Sodium 137, potassium 2.9, chloride 91, CO2 36, BUN 21 creatinine 0.74. Blood sugar 236. Liver function tests were normal. Troponin negative. Triglycerides 282, cholesterol 143, LDL 57, HDL 29. EKG was a sinus rhythm at 83 bpm, no ST changes. CAT scan of the brain showed no acute intracranial abnormality. CTA of the head and neck reveal no acute abnormality. Moderate stenosis of the right proximal RCA Chest x-ray reveals moderate congestive changes. Patient was started on full strength aspirin, admitted to the cardiac stepdown unit, consult with neurology, speech, OT and PT. 05/03: Patient has been seen by neurology for possible CVA with recommendations to switch patient to Plavix 75 mg daily. Regarding MRI, patient is willing to try it for MRI today and we will provide a Valium IV and Dilaudid IV 1 hour prior to MRI and will also include the lumbar spine. Patient has had increased in his pain pump and continues to have lumbar pain. He has been afebrile, heart rate 80, blood pressure 156/84, pulse ox 98% on room air. Blood sugars are running between 144 and 208. Echocardiogram is pending. Consult added for cardiology for CLARY tomorrow to rule out cryptogenic stroke. Patient continues to have right-sided facial droop and mild weakness on the right upper extremity Discharge plan remains to return to [facility] most likely on Wednesday. 05/04: Patient went for MRI but was unable to fit in the machine and this was canceled. [email or web address] rep will be in to check his pain pump. Patient complains of significant pain on the lower back between shoulder blades feet and legs. He also complains of headache. Additional dose of morphine IR given today. Carotid ultrasound revealed 50-70% stenosis in both internal carotid arteries. There is progression of disease. Patient has been seen by Dr. Timmons from vascular surgery. Echocardiogram reveals EF of 55-60% with moderate concentric left ventricular hypertrophy, mild mitral regurgitation, mild tricuspid regurgi tation. Patient remains afebrile, heart rate 95, blood pressure 115/65, pulse ox 94% on room air. Capillary blood glucose running between 147 and 248. Cardiology consult is pending. Discharge plan remains to return to [facility] on Wednesday if all testing is completed. ASSESSMENT AND PLAN 1. Right-sided weakness possible CVA 2. History of CVA 3 with residual left-sided paraplegia. 3. History of non-small cell lung cancer status post right middle lobe lobectomy. 4. Chronic pain under the care of Dr. Parker. Pain pump is in place. 5. Hypertension. 8. Hyperlipidemia. 9. Diabetes mellitus type 2. 10. Diabetic neuropathy. 11. History of coronary artery disease status post stent in the mid RCA. 12. Restless leg syndrome. 13. Seizure disorder. 14. Gastroesophageal reflux disease. 15. Moderate right ICA stenosis. DISCHARGE PLAN Return to [facility] on Wednesday most likely. Impression and plan of care have been directed as dictated by the signing physician. Eleonora Almeida nurse practitioner acting as scribe for signing physician. Patient Condition at Discharge: Fair Plan - Discharge Summary New Discharge Prescriptions: New Aspirin 325 mg PO DAILY tab Clopidogrel [Plavix] 75 mg PO DAILY tab Continue Acetaminophen [Tylenol] 650 mg PO Q6H PRN PRN Reason: Fever And/ Or Pain Insulin Glargine,Hum.rec.anlog [Basaglar Kwikpen U-100] 38 unit SQ BID Linagliptin [Tradjenta] 5 mg PO DAILY Midodrine HCl [ProAmatine] 10 mg PO TID@0900,1300,1800 rOPINIRole HCL [Requip] 3 mg PO TID@0600,1400,2200 Divalproex Sodium [Depakote] 500 mg PO BID Ergocalciferol [Vitamin D2 (DRISDOL)] 1,250 mcg PO ANDERSON@0900 Montelukast [Singulair] 10 mg PO HS Famotidine [Pepcid] 20 mg PO BID Azelastine HCl 2 spray EA NOSTRIL BID PRN PRN Reason: Allergy Symptoms bisacodyL 10 mg RECTAL DAILY PRN PRN Reason: Constipation guaiFENesin [Mucinex] 600 mg PO BID Potassium Chloride [K-Tab ER] 20 meq PO Q8H Magnesium Hydroxide [Milk of Magnesia] 2,400 mg PO DAILY PRN PRN Reason: Constipation levETIRAcetam [Keppra] 1,500 mg PO BID Furosemide [Lasix] 40 mg PO BID@0800,1400 polyethylene glycoL 3350 [Miralax] 17 gm PO DAILY PRN PRN Reason: Constipation Atorvastatin [Lipitor] 80 mg PO HS Cyanocobalamin [Vitamin B-12] 500 mcg PO DAILY Mag Hydrox/Aluminum Hyd/Simeth [Mylanta Maximum Strength Liq] 30 ml PO Q4H PRN PRN Reason: Gi Upset metFORMIN HCL [Glucophage] 1,000 mg PO BID@0900,1700 Insulin Aspart [NovoLOG Flexpen] 4 units SQ HS PRN PRN Reason: SNACK methocarbamoL [Robaxin] 500 mg PO DAILY Glimepiride [Amaryl] 1 mg PO BID@0900,1700 metOLazone [Zaroxolyn] 5 mg PO Q48H Lactulose 20 gm PO BID PRN PRN Reason: Constipation Metoprolol Tartrate [Lopressor] 12.5 mg PO HS Melatonin 10 mg PO HS Insulin Aspart [NovoLOG Flexpen] 8 units SQ AC-BRKFST@0800 Insulin Aspart [NovoLOG Flexpen] 14 units SQ AC-BID@1200,1700 Methyl Salicylate/Menthol [Salonpas Patch] 1 patch TOPICAL DAILY Pregabalin [Lyrica] 50 mg PO DAILY Sennosides/Docusate Sodium [Senna Plus 8.6-50 mg Tablet] 2 tab PO DAILY@1400 traZODone HCL 150 mg PO HS Nitroglycerin Sl Tabs [Nitrostat] 0.4 mg SL Q5M PRN PRN Reason: Chest Pain Pregabalin [Lyrica] 225 mg PO HS #3 cap MORPHINE ORAL APOLLO 2mg/mL [Morphine Oral Soln 2 MG/ML] 10 mg PO Q6H PRN #30 ml PRN Reason: Pain Discontinued Aspirin 81 mg PO DAILY Discharge Medication List Acetaminophen [Tylenol] 650 mg PO Q6H PRN 05/30/19 [History] Insulin Glargine,Hum.rec.anlog [Basaglar Kwikpen U-100] 38 unit SQ BID 05/30/19 [History] Linagliptin [Tradjenta] 5 mg PO DAILY 05/30/19 [History] Midodrine HCl [ProAmatine] 10 mg PO TID@0900,1300,1800 05/30/19 [History] rOPINIRole HCL [Requip] 3 mg PO TID@0600,1400,2200 05/30/19 [History] Divalproex Sodium [Depakote] 500 mg PO BID 07/21/19 [History] Ergocalciferol [Vitamin D2 (DRISDOL)] 1,250 mcg PO ANDERSON@0900 07/21/19 [History] Montelukast [Singulair] 10 mg PO HS 07/21/19 [History] Famotidine [Pepcid] 20 mg PO BID 11/20/19 [History] Azelastine HCl 2 spray EA NOSTRIL BID PRN 02/12/20 [History] Potassium Chloride [K-Tab ER] 20 meq PO Q8H 02/12/20 [History] bisacodyL 10 mg RECTAL DAILY PRN 02/12/20 [History] guaiFENesin [Mucinex] 600 mg PO BID 02/12/20 [History] Magnesium Hydroxide [Milk of Magnesia] 2,400 mg PO DAILY PRN 05/03/20 [History] levETIRAcetam [Keppra] 1,500 mg PO BID 05/03/20 [History] Furosemide [Lasix] 40 mg PO BID@0800,1400 09/06/20 [History] polyethylene glycoL 3350 [Miralax] 17 gm PO DAILY PRN 09/06/20 [History] Atorvastatin [Lipitor] 80 mg PO HS 10/23/20 [History] Cyanocobalamin [Vitamin B-12] 500 mcg PO DAILY 10/23/20 [History] Mag Hydrox/Aluminum Hyd/Simeth [Mylanta Maximum Strength Liq] 30 ml PO Q4H PRN 10/23/20 [History] metFORMIN HCL [Glucophage] 1,000 mg PO BID@0900,1700 10/23/20 [History] Lactulose 20 gm PO BID PRN 12/14/20 [History] Melatonin 10 mg PO HS 12/14/20 [History] Metoprolol Tartrate [Lopressor] 12.5 mg PO HS 12/14/20 [History] Insulin Aspart [NovoLOG Flexpen] 4 units SQ HS PRN 03/04/21 [History] Insulin Aspart [NovoLOG Flexpen] 8 units SQ AC-BRKFST@0800 03/04/21 [History] Insulin Aspart [NovoLOG Flexpen] 14 units SQ AC-BID@1200,1700 03/04/21 [History] Methyl Salicylate/Menthol [Salonpas Patch] 1 patch TOPICAL DAILY 03/04/21 [History] Pregabalin [Lyrica] 50 mg PO DAILY 03/04/21 [History] Sennosides/Docusate Sodium [Senna Plus 8.6-50 mg Tablet] 2 tab PO DAILY@1400 03/04/21 [History] methocarbamoL [Robaxin] 500 mg PO DAILY 03/04/21 [History] Glimepiride [Amaryl] 1 mg PO BID@0900,1700 05/01/21 [History] Nitroglycerin Sl Tabs [Nitrostat] 0.4 mg SL Q5M PRN 05/01/21 [History] metOLazone [Zaroxolyn] 5 mg PO Q48H 05/01/21 [History] traZODone HCL 150 mg PO HS 05/01/21 [History] Aspirin 325 mg PO DAILY tab 05/04/21 [Rx] Clopidogrel [Plavix] 75 mg PO DAILY tab 05/04/21 [Rx] MORPHINE ORAL APOLLO 2mg/mL [Morphine Oral Soln 2 MG/ML] 10 mg PO Q6H PRN #30 ml 05/04/21 [Rx] Pregabalin [Lyrica] 225 mg PO HS #3 cap 05/04/21 [Rx] Follow up Appointment(s)/Referral(s): Radha Ortiz MD [Primary Care Provider] - 1 Week (At [facility]) Discharge Disposition: TRANSFER TO SNF/ECF
--- NOTE | 2021-05-04 15:45 | P.CRDCN ---
History of Present Illness History of present illness: HISTORY OF PRESENTING ILLNESS Patient is a pleasant 55-year-old male with a history of morbid obesity, seizure disorder, stroke 3 with left-sided weakness, debility, hypertension, diabetes mellitus type 2, hyperlipidemia, coronary artery disease status post previous stenting, squamous cell lung cancer status post lobectomy. Patient has been residing at [facility], recovering from lung cancer surgery. He states he was shaving when he started to notice a right facial droop as well as some weakness of the right arm. Patient therefore presented to emergency Department. Patient has had workup including CTA which was showing stenosis of the right internal carotid artery which would not match with his symptoms and passage surgery was consult that. Cardiology was consulted to perform CLARY for ruling out cardiac source of emboli. Patient normally follows with Dr. RAMESH Sotelo. He did have a transthoracic echo with poor window was, technically difficult study with inability to perform bubble study ejection fraction 55-60% with mild mitral regurgitation and moderate LVH. He admits to chronic lower extremity edema, denies any shortness breath, chest pain, pressure. EKG shows normal sinus rhythm with PACs, normal axis, no significant ST-T wave abnormalities. Blood work 05/01/2021 shows white blood cell count 5.9, hemoglobin 12.0, sodium 137, potassium 2.9, BUN 21, creatinine 0.7, hemoglobin A1c 7.1, triglycerides 282, LDL 57, HDL 29, troponin less than 0.012 REVIEW OF SYSTEMS At the time of my exam: CONSTITUTIONAL: Denies fever or chills. CARDIOVASCULAR: Denies chest pain, shortness of breath, orthopnea, PND or palpitations. +chronic edema RESPIRATORY: Denies cough. GASTROINTESTINAL: Denies abdominal pain, diarrhea, constipation, nausea or vomiting. MUSCULOSKELETAL: Denies myalgias. NEUROLOGIC: Denies numbness, tingling or weakness. ENDOCRINE: Denies fatigue, weight change, polydipsia or polyurina. GENITOURINARY: Denies burning, hematuria or urgency with micturation. HEMATOLOGIC: Denies history of anemia or bleeding. PHYSICAL EXAMINATION Vital signs reviewed. CONSTITUTIONAL: No apparent distress. Obese, chronically ill appearing HEENT: Head is normocephalic. Pupils are equal, round. Sclerae anicteric. Mucous membranes of the mouth are moist. No JVD. No carotid bruit. CHEST EXAMINATION: Lungs are clear to auscultation. No chest wall tenderness is noted on palpation or with deep breathing. HEART EXAMINATION: Regular rate and rhythm. S1, S2 heard. No murmurs, gallops or rub. ABDOMEN: Soft, nontender. Positive bowel sounds. EXTREMITIES: 2+ peripheral pulses, no lower extremity edema and no calf tenderness. NEUROLOGIC EXAMINATION: Patient is awake, alert and oriented x3. ASSESSMENT 1. Right-sided weakness concerning for stroke with recurrent episodes of stroke 2. History of stroke, TIAs mainly of the left side 3. History of lung cancer status post lobectomy 4. Coronary artery disease status post history of PCI 5. Hypertension 6. Hyperlipidemia 7. Diabetes mellitus type 2 8. Carotid artery stenosis 9. Morbid obesity 10. Seizure disorder 11. Hypertension with intermittent spikes of blood pressure, may be reactive to neurologic events 12. Hypokalemia 13. Lower extremity edema, likely mainly related to venous insufficiency PLAN We will attempt to make arrangements for CLARY with Dr Sotelo on 05/05 to rule out cardiac source of emboli. Aspirin was switched to Plavix. Continue with current medical regimen. Further recommendations to follow. Past Medical History Past Medical History: Coronary Artery Disease (CAD), Cancer, COPD, CVA/TIA, Diabetes Mellitus, GERD/Reflux, Hyperlipidemia, Hypertension, Myocardial Infarction (AK), Osteoarthritis (OA), Seizure Disorder, Sleep Apnea/CPAP/BIPAP Additional Past Medical History / Comment(s): LAST SEIZURE 2018; lumbar radiculopathy; neuropathy; no CPAP needed per recent sleep study, hx. lung cancer, cellulitis of both lower legs 2020 Last Myocardial Infarction Date:: 10/22/10 History of Any Multi-Drug Resistant Organisms: None Reported Past Surgical History: Back Surgery, Cholecystectomy, Heart Catheterization With Stent Additional Past Surgical History / Comment(s): LAMINECTOMY ,fusion,spinal stimulator LEFT SHOULDER sx, 07-31-15 revison thoracic laminectomy t10- t11/removal of neuro stimulator and wires removed, fused L1&2 to a cage fusion that was previously put in to L3,4,5. May 27/2018. 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 Smoking Status: Former smoker Past Alcohol Use History: None Reported Additional Past Alcohol Use History / Comment(s): STARTED SMOKING 1977. Unable to obtain stopped smoking date. Past Drug Use History: None Reported Additional Drug Use History / Comment(s): HAS A MEDICAL MARIJUANA CARD-no current use. - Past Family History Brother(s) Family Medical History: Deep Vein Thrombosis (DVT) Mother Family Medical History: Osteoarthritis (OA) Additional Family Medical History / Comment(s): psoriases, Parkinsons Father Family Medical History: Coronary Artery Disease (CAD) Additional Family Medical History / Comment(s): heart problems- quad bypass, Medications and Allergies Home Medications Medication Instructions Recorded Confirmed Type Acetaminophen [Tylenol] 650 mg PO Q6H PRN 05/30/19 05/01/21 History Insulin Glargine,Hum.rec.anlog 38 unit SQ BID 05/30/19 05/01/21 History [Basaglar Lucianopen U-100] Linagliptin [Tradjenta] 5 mg PO DAILY 05/30/19 05/01/21 History Midodrine HCl [ProAmatine] 10 mg PO TID@0900,1300,1800 05/30/19 05/01/21 History rOPINIRole HCL [Requip] 3 mg PO TID@0600,1400,2200 05/30/19 05/01/21 History Divalproex Sodium [Depakote] 500 mg PO BID 07/21/19 05/01/21 History Ergocalciferol [Vitamin D2 1,250 mcg PO ANDERSON@0900 07/21/19 05/01/21 History (DRISDOL)] Montelukast [Singulair] 10 mg PO HS 07/21/19 05/01/21 History Famotidine [Pepcid] 20 mg PO BID 11/20/19 05/01/21 History Azelastine HCl 2 spray EA NOSTRIL BID PRN 02/12/20 05/01/21 History Potassium Chloride [K-Tab ER] 20 meq PO Q8H 02/12/20 05/01/21 History bisacodyL 10 mg RECTAL DAILY PRN 02/12/20 05/01/21 History guaiFENesin [Mucinex] 600 mg PO BID 02/12/20 05/01/21 History Magnesium Hydroxide [Milk of 2,400 mg PO DAILY PRN 05/03/20 05/01/21 History Magnesia] levETIRAcetam [Keppra] 1,500 mg PO BID 05/03/20 05/01/21 History Furosemide [Lasix] 40 mg PO BID@0800,1400 09/06/20 05/01/21 History polyethylene glycoL 3350 [Miralax] 17 gm PO DAILY PRN 09/06/20 05/01/21 History Atorvastatin [Lipitor] 80 mg PO HS 10/23/20 05/01/21 History Cyanocobalamin [Vitamin B-12] 500 mcg PO DAILY 10/23/20 05/01/21 History Mag Hydrox/Aluminum Hyd/Simeth 30 ml PO Q4H PRN 10/23/20 05/01/21 History [Mylanta Maximum Strength Liq] metFORMIN HCL [Glucophage] 1,000 mg PO BID@0900,1700 10/23/20 05/01/21 History Lactulose 20 gm PO BID PRN 12/14/20 05/01/21 History Melatonin 10 mg PO HS 12/14/20 05/01/21 History Metoprolol Tartrate [Lopressor] 12.5 mg PO HS 12/14/20 05/01/21 History Insulin Aspart [NovoLOG Flexpen] 4 units SQ HS PRN 03/04/21 05/01/21 History Insulin Aspart [NovoLOG Flexpen] 8 units SQ AC-BRKFST@0800 03/04/21 05/01/21 History Insulin Aspart [NovoLOG Flexpen] 14 units SQ AC-BID@1200,1700 03/04/21 05/01/21 History Methyl Salicylate/Menthol 1 patch TOPICAL DAILY 03/04/21 05/01/21 History [Salonpas Patch] Pregabalin [Lyrica] 50 mg PO DAILY 03/04/21 05/01/21 History Sennosides/Docusate Sodium [Senna 2 tab PO DAILY@1400 03/04/21 05/01/21 History Plus 8.6-50 mg Tablet] methocarbamoL [Robaxin] 500 mg PO DAILY 03/04/21 05/01/21 History Glimepiride [Amaryl] 1 mg PO BID@0900,1700 05/01/21 05/01/21 History Nitroglycerin Sl Tabs [Nitrostat] 0.4 mg SL Q5M PRN 05/01/21 05/01/21 History metOLazone [Zaroxolyn] 5 mg PO Q48H 05/01/21 05/01/21 History traZODone HCL 150 mg PO HS 05/01/21 05/01/21 History Aspirin 325 mg PO DAILY tab 05/04/21 Rx Clopidogrel [Plavix] 75 mg PO DAILY tab 05/04/21 Rx MORPHINE ORAL APOLLO 2mg/mL [Morphine 10 mg PO Q6H PRN #30 ml 05/04/21 Rx Oral Soln 2 MG/ML] Pregabalin [Lyrica] 225 mg PO HS #3 cap 05/04/21 Rx Allergies Allergy/AdvReac Type Severity Reaction Status Date / Time baclofen Allergy Unknown Verified 05/01/21 18:42 cyclobenzaprine Allergy Unknown Verified 05/01/21 18:42 [From Flexeril] Physical Exam Vitals: Vital Signs Temp Pulse Resp BP Pulse Ox 05/04/21 12:00 88 128/71 94 L 05/04/21 08:00 98.6 F 95 115/65 94 L 05/04/21 04:00 78 16 119/72 92 L 05/04/21 02:00 85 16 05/04/21 00:00 97.5 F L 85 16 105/68 98 05/03/21 20:00 84 15 114/74 98 05/03/21 19:00 15 98 05/03/21 16:00 75 104/65 96 Intake and Output 05/04/21 05/04/21 05/04/21 06:59 14:59 22:59 Intake Total 480 Balance 480 Intake: Oral 480 Other: Voiding Method Urinal # Voids 1 1 # Bowel Movements 1 Weight 150.9 kg Results 05/01/21 18:32 05/03/21 01:31 Current Medications Generic Name Dose Route Start Last Admin Trade Name Freq PRN Reason Stop Dose Admin Acetaminophen 650 mg 05/01/21 22:07 05/03/21 16:03 Acetaminophen Tab 325 Mg Tab PO 650 mg Q6H PRN Administration Fever and/ or Pain Aspirin 325 mg 05/02/21 09:00 05/04/21 08:46 Aspirin 325 Mg Tab PO 325 mg DAILY SILVINO Administration Atorvastatin Calcium 80 mg 05/02/21 21:00 05/03/21 20:35 Atorvastatin 80 Mg Tab PO 80 mg HS SILVINO Administration Azelastine HCl 2 spray 05/01/21 22:07 Azelastine 137mcg/Knott EA NOSTRIL BID PRN Allergy Symptoms Bisacodyl 10 mg 05/01/21 22:07 Bisacodyl 10 Mg Supp RECTAL DAILY PRN Constipation Clopidogrel Bisulfate 75 mg 05/02/21 17:15 05/04/21 08:46 Clopidogrel 75 Mg Tab PO 75 mg DAILY SILVINO Administration Cyanocobalamin 500 mcg 05/02/21 09:00 05/04/21 08:47 Cyanocobalamin 500 Mcg Tab PO 500 mcg DAILY SILVINO Administration Divalproex Sodium 500 mg 05/02/21 09:00 05/04/21 08:46 Divalproex 500 Mg Tablet.Dr PO 500 mg BID SILVINO Administration Ergocalciferol 1,250 mcg 05/04/21 09:00 05/04/21 08:47 Ergocalciferol 1,250 Mcg (50,000 Iu) Capsule PO 1,250 mcg ANDERSON@0900 SILVINO Administration Famotidine 20 mg 05/02/21 09:00 05/04/21 08:47 Famotidine 20 Mg Tab PO 20 mg BID SILVINO Administration Furosemide 40 mg 05/02/21 09:00 05/04/21 08:46 Furosemide 40 Mg Tab PO 40 mg BID@0900,1600 SILVINO Administration Furosemide 40 mg 05/04/21 09:30 05/04/21 11:24 Furosemide 10 Mg/Ml 4 Ml Vial IV 05/05/21 00:01 40 mg Q8HR SILVINO Administration Glimepiride 1 mg 05/02/21 07:30 05/04/21 06:51 Glimepiride 1 Mg Tab PO 1 mg AC-BID SILVINO Administration Insulin Aspart 0 unit 05/01/21 21:17 05/04/21 13:02 Insulin Aspart (Novolog) 100 Unit/Ml Vial SQ 2 unit ACHS SILVINO Administration Protocol Insulin Aspart 4 unit 05/01/21 22:07 Insulin Aspart (Novolog) 100 Unit/Ml Vial SQ HS PRN SNACK Insulin Aspart 8 unit 05/02/21 08:00 05/04/21 08:46 Insulin Aspart (Novolog) 100 Unit/Ml Vial SQ 8 unit AC-BRKFST@0800 SILVINO Administration Insulin Aspart 14 unit 05/02/21 12:00 05/04/21 13:02 Insulin Aspart (Novolog) 100 Unit/Ml Vial SQ 14 unit AC-BID@1200,1700 SILVINO Administration Insulin Detemir 38 unit 05/02/21 07:00 05/04/21 06:50 Insulin Detemir (Levemir) 100 Unit/Ml Syr SQ 38 unit BID@0700,2100 SILVINO Administration Lactulose 20 gm 05/01/21 22:07 Lactulose 200 Gm/300 Ml (From 09/21 Gal Jug) PO BID PRN Constipation Levetiracetam 1,500 mg 05/02/21 09:00 05/04/21 08:47 Levetiracetam 750 Mg Tab PO 1,500 mg BID SILVINO Administration Linagliptin 5 mg 05/02/21 09:00 05/04/21 08:46 Linagliptin 5 Mg Tablet PO 5 mg DAILY SILVINO Administration Metformin HCl 1,000 mg 05/02/21 07:30 05/04/21 06:51 Metformin 500 Mg Tab PO 1,000 mg AC-BID SILVINO Administration Methocarbamol 500 mg 05/02/21 09:00 05/04/21 08:47 Methocarbamol 500 Mg Tab PO 500 mg DAILY SILVINO Administration Metolazone 5 mg 05/02/21 07:00 05/04/21 06:51 Metolazone 5 Mg Tab PO 5 mg Q48H SILVINO Administration Metoprolol Tartrate 12.5 mg 05/02/21 21:00 05/03/21 20:34 Metoprolol Tartrate 12.5 Mg Tab PO 12.5 mg HS SILVINO Administration Midodrine 10 mg 05/01/21 22:07 Midodrine 5 Mg Tab PO TID@0900,1300,1800 PRN Hypotension Montelukast Sodium 10 mg 05/02/21 21:00 05/03/21 20:35 Montelukast 10 Mg Tab PO 10 mg HS SILVINO Administration Morphine Sulfate 15 mg 05/03/21 17:00 05/04/21 06:51 Morphine Sulfate Ir 15 Mg Tablet PO 15 mg Q6H PRN Administration Pain Nitroglycerin 0.4 mg 05/01/21 22:07 Nitroglycerin Sl Tabs 0.4 Mg Tab SUBLINGUAL Q5M PRN Chest Pain Polyethylene Glycol 17 gm 05/01/21 22:07 05/02/21 17:09 Polyethylene Glycol 3350 17 Gm Powd.Pack PO 17 gm DAILY PRN Administration Constipation Potassium Chloride 20 meq 05/01/21 22:30 05/04/21 06:51 Potassium Chloride Er 20 Meq Tab.Er PO 20 meq Q8H SILVINO Administration Pregabalin 50 mg 05/02/21 09:00 05/04/21 08:47 Pregabalin 50 Mg Cap PO 50 mg DAILY SILVINO Administration Pregabalin 225 mg 05/02/21 21:00 05/03/21 20:34 Pregabalin 75 Mg Cap PO 225 mg HS SILVINO Administration Ropinirole HCl 3 mg 05/02/21 09:00 05/04/21 08:47 Ropinirole Hcl 1 Mg Tab PO 3 mg TID SILVINO Administration Senna/Docusate Sodium 2 each 05/02/21 14:00 05/03/21 12:55 Sennosides-Docusate Sodium 1 Each Tab PO 2 each DAILY@1400 SILVINO Administration Trazodone HCl 150 mg 05/02/21 21:00 05/03/21 20:34 Trazodone Hcl 50 Mg Tab PO 150 mg HS SILVINO Administration Intake and Output 05/04/21 05/04/21 05/04/21 06:59 14:59 22:59 Intake Total 480 Balance 480 Intake: Oral 480 Other: Voiding Method Urinal # Voids 1 1 # Bowel Movements 1 Weight 150.9 kg 05/01/21 18:32 05/03/21 01:31
--- NOTE | 2021-05-04 16:49 | P.PN ---
Subjective Progress Note Date: 05/04/21 05/04/2021: This is a tele-neurology follow-up performed today on 05/04/2021. Patient is sitting in the recliner. Patient is feeling better. Patient's speech has improved. Patient has declined MRI, as he states he is "too big" to fit in the MRI scanner. Objective - Vital Signs Vital signs: Vital Signs Temp 98.6 F 05/04/21 08:00 Pulse 88 05/04/21 12:00 Resp 16 05/04/21 04:00 BP 128/71 05/04/21 12:00 Pulse Ox 94 L 05/04/21 12:00 Intake & Output 05/03/21 05/04/21 05/04/21 18:59 06:59 18:59 Intake Total 960 777 480 Balance 960 777 480 Weight 150.9 kg Intake: Oral 960 777 480 Other: Voiding Method Urinal Urinal # Voids 1 1 1 # Bowel Movements 1 1 - Exam Patient is alert and awake in no distress. Speech is less dysarthric. No aphasia. On cranial nerve examination his pupils are round and reacting. Face has right-sided asymmetry, better than yesterday. Tongue protrudes slightly to the right. Pupils are round and reacting. Visual hernandes are full. On muscle strength testing patient has right pronation no drift. The strength is normal. Sensations equal. - Labs CBC & Chem 7: 05/01/21 18:32 05/03/21 01:31 Labs: Abnormal Lab Results - Last 24 Hours (Table) 05/03/21 05/03/21 05/04/21 Range/Units 16:41 19:34 06:35 POC Glucose (mg/dL) 248 H 215 H 173 H (75-99) mg/dL 05/04/21 Range/Units 11:39 POC Glucose (mg/dL) 147 H (75-99) mg/dL Assessment and Plan Assessment: * Possible CVA manifesting with mild right facial brachial weakness and slurred speech. * Diabetes * Hypertension * Morbid obesity * X tobacco use Plan: * Maintain patient on dual antiplatelet medication aspirin 81 mg and Plavix 75 mg. After 21 days, stop the aspirin and continue Plavix 75 mg indefinitely. * CTA of head and neck showed no acute abnormality of the CTA head and neck. Moderate stenosis of the proximal right ICA. Patient has symptoms on the ipsilateral side therefore right ICA stenosis probably asymptomatic. Patient seen by vascular surgery, who have initiated a carotid Doppler. * Carotid Doppler revealed bilateral plaque formation. Images in measurement suggest 50-70% stenosis of both ICAs. There is progression of disease at increase velocity compared to old exam. Vascular surgery to follow. * MRI of the brain patient canceled because of intolerance. * Hemoglobin A1c 7.1. This is fairly well controlled although may try to bring it <7.0. * Lipid panel with cholesterol 143, LDL 57.6, HDL 29, triglycerides 282. Continue Lipitor 80 mg. * 2-D echo revealed normal left ventricular size. Moderate concentric LVH. EF between 55-60%. Unable to perform agitated saline study, patient was scanned sitting up and has TDS images. * PT OT and speech therapy. * Patient to undergo heart monitoring for 30 days to rule out paroxysmal A. fib.
[2021-05-04 16:54] LABS: Glucose,Whole Blood 252 mg/dL (75-99)
[2021-05-04] MEDS: SENNOSIDES-DOCUSATE SODIUM 1 EACH TAB PO SCH (17:33)
[2021-05-04] MEDS: PREGABALIN 75 MG CAP PO SCH (20:04)
[2021-05-04] MEDS: traZODone HCL 50 MG TAB PO SCH (20:04)
[2021-05-04] MEDS: METOPROLOL TARTRATE 12.5 MG TAB PO SCH (20:04)
[2021-05-04] MEDS: MORPHINE SULFATE IR 15 MG TABLET PO SCH ×2 (20:05→23:53)
[2021-05-04] MEDS: MONTELUKAST 10 MG TAB PO SCH (20:05)
[2021-05-04] MEDS: ATORVASTATIN 80 MG TAB PO SCH (20:05)
[2021-05-04 20:43] LABS: Glucose,Whole Blood 179 mg/dL (75-99)
[2021-05-05] MEDS: MORPHINE SULFATE IR 15 MG TABLET PO SCH (05:16)
[2021-05-05 06:22] LABS: Glucose,Whole Blood 224 mg/dL (75-99)
[2021-05-05] MEDS: INSULIN ASPART (NovoLOG) 100 UNIT/ML VIAL SQ SCH ×7 (06:46→20:15)
[2021-05-05] MEDS: POTASSIUM CHLORIDE ER 20 MEQ TAB.ER PO SCH ×3 (06:46→22:15)
[2021-05-05] MEDS: CYANOCOBALAMIN 500 MCG TAB PO SCH (09:59)
[2021-05-05] MEDS: ASPIRIN 325 MG TAB PO SCH (09:59)
[2021-05-05] MEDS: CLOPIDOGREL 75 MG TAB PO SCH (09:59)
[2021-05-05] MEDS: DIVALPROEX 500 MG TABLET.DR PO SCH ×2 (10:00→20:14)
[2021-05-05] MEDS: PREGABALIN 50 MG CAP PO SCH (10:00)
[2021-05-05] MEDS: FAMOTIDINE 20 MG TAB PO SCH ×2 (10:00→20:14)
[2021-05-05] MEDS: FUROSEMIDE 40 MG TAB PO SCH ×2 (10:01→17:12)
[2021-05-05] MEDS: MORPHINE SULFATE IR 15 MG TABLET PO PRN ×2 (10:05→17:10)
[2021-05-05] MEDS: methocarbamoL 500 MG TAB PO SCH (10:06)
[2021-05-05 11:24] LABS: Glucose,Whole Blood 161 mg/dL (75-99)
[2021-05-05] MEDS ORDERED: fentaNYL (PF) 50 MCG/ML 2 ML AMP ONE (11:33)
[2021-05-05] MEDS ORDERED: SODIUM CHLORIDE 0.9% 500 ML 500 ML IV ONE (11:49)
[2021-05-05] MEDS ORDERED: BENZOCAINE SPRAY 1 CAN MUCOUS MEM ONE (11:50)
[2021-05-05] MEDS ORDERED: MIDAZOLAM 2 MG/2 ML VIAL IV ONE ×2 (11:52→11:54)
[2021-05-05] MEDS: fentaNYL (PF) 50 MCG/ML 2 ML AMP IV ONE ×2 (11:52→11:54)
--- NOTE | 2021-05-05 12:44 | P.PN ---
Subjective Progress Note Date: 05/05/21 Principal diagnosis: Carotid stenosis The patient is seen and examined sitting up in the bedside chair. He states his right upper extremity weakness is resolving. Still has mild right facial asymmetry. Patient states he has residual left upper and lower extremity weakness from previous CVA in 2019. He denies any other focal deficits. Cardiology is following and he is scheduled for a CLARY today. Carotid ultrasound was performed right ICA PSV 143, ICA/CCA ratio 1.7, left ICA PSV 145.7, ICA/CCA ratio 1.6. Impression states bilateral plaque formation. Images the measure ment suggests 50-70% stenosis in both internal carotid arteries. There is progression of disease and increased velocity compared to old exam. Patient denies any chest pain, shortness of breath or new focal deficits. Objective - Vital Signs Vital signs: Vital Signs Temp 98.3 F 05/05/21 04:00 Pulse 87 05/05/21 08:00 Resp 20 05/05/21 08:00 BP 156/82 05/05/21 08:00 Pulse Ox 97 05/05/21 08:00 Intake & Output 05/04/21 05/05/21 05/05/21 18:59 06:59 18:59 Intake Total 720 0 Balance 720 0 Weight 147.3 kg Intake: Oral 720 0 Other: Voiding Method Urinal Urinal # Voids 1 2 # Bowel Movements 1 - Exam General appearance: The patient is alert, oriented 3, appears in no acute distress. HET: Head is normocephalic and atraumatic. Pupils are equal and reactive. Ptosis of left eye Neck: Supple without lymphadenopathy. Trachea midline. No audible bruit. Heart: S1 S2. Regular rate and rhythm. Lungs: Clear to auscultation. Extremities: Normal skin color and turgor. Bilateral lower extremity edema.. Neurological: Patient is alert and oriented 3. Patient has mild right facial asymmetry. Tongue protrudes midline, speech seems slightly slurred although patient states this is normal may be residual from previous CVA. Patient has mild left upper and lower extremity weakness 4/5. Right upper extremity and lower extremity 5/5. - Labs CBC & Chem 7: 05/01/21 18:32 05/03/21 01:31 Labs: Abnormal Lab Results - Last 24 Hours (Table) 05/04/21 05/04/21 05/04/21 Range/Units 11:39 16:52 20:41 POC Glucose (mg/dL) 147 H 252 H 179 H (75-99) mg/dL 05/05/21 Range/Units 06:20 POC Glucose (mg/dL) 224 H (75-99) mg/dL Assessment and Plan Assessment: 1. Carotid stenosis 50-70% bilaterally per carotid duplex 2. Right upper extremity weakness and facial drooping 3. History of coronary artery disease 4. History of previous CVA 5. History of diabetes mellitus 6. Hyperlipidemia 7. Hypertension 8. Obesity 9. Obstructive sleep apnea on BiPAP 10. Seizure disorder 11. History of substance abuse, tobacco abuse 12. History of lung cancer status post lobectomy Plan: 1. Await CLARY results 2. Await recommendations from neurology 3. Continue dual antiplatelet therapy and statin 4. Patient cleared by vascular surgery for discharge will follow up in one week to discuss possible intervention if needed. Thank you for this consultation and allowing us take part in the plan of care of your patient during his hospital stay. The impression and plan of care has been dictated as directed. Dr. Ferreira I performed a history and examination of this patient, discussed the same with the dictator. I agree with the dictator's note ,documented as a scribe. Any additional findings or plans will be noted.
[2021-05-05] MEDS: INSULIN DETEMIR (LEVEMIR) 100 UNIT/ML SYR SQ SCH ×2 (13:11→20:13)
[2021-05-05] MEDS: metFORMIN 500 MG TAB PO SCH ×2 (13:11→17:10)
[2021-05-05] MEDS: GLIMEPIRIDE 1 MG TAB PO SCH ×2 (13:11→17:11)
[2021-05-05] MEDS: LINAGLIPTIN 5 MG TABLET PO SCH (13:11)
--- NOTE | 2021-05-05 14:15 | P.PN ---
Subjective Progress Note Date: 05/05/21 Patient is sitting in the recliner. Patient feeling nauseous, congestion, cough and some headache. He states that he feels almost like how he felt when he suffered from Covid infection a few months ago. Patient lives in [facility] and patient states that he has a few confirmed cases in the [facility] and it is locked down. He wants to be tested for it. Patient's speech has improved. Patient has declined MRI, as he states he is "too big" to fit in the MRI scanner. Objective - Vital Signs Vital signs: Vital Signs Temp 98.3 F 05/05/21 04:00 Pulse 81 05/05/21 12:24 Resp 10 L 05/05/21 13:23 BP 113/58 05/05/21 12:24 Pulse Ox 95 05/05/21 12:16 Intake & Output 05/04/21 05/05/21 05/05/21 18:59 06:59 18:59 Intake Total 720 0 Balance 720 0 Weight 147.3 kg Intake: Oral 720 0 Other: Voiding Method Urinal Urinal # Voids 1 2 1 # Bowel Movements 1 - Exam Patient is alert and awake in no distress. Speech is clear, no dysarthria. No aphasia. Detail testing deferred. - Labs CBC & Chem 7: 05/01/21 18:32 05/03/21 01:31 Labs: Abnormal Lab Results - Last 24 Hours (Table) 05/04/21 05/04/21 05/05/21 Range/Units 16:52 20:41 06:20 POC Glucose (mg/dL) 252 H 179 H 224 H (75-99) mg/dL 05/05/21 Range/Units 11:22 POC Glucose (mg/dL) 161 H (75-99) mg/dL Assessment and Plan Assessment: * Possible CVA manifesting with mild right facial brachial weakness and slurred speech. Symptoms have mostly resolved. * Diabetes * Hypertension * Morbid obesity * X tobacco use Plan: * Maintain patient on dual antiplatelet medication aspirin 81 mg and Plavix 75 mg. * CTA of head and neck showed no acute abnormality of the CTA head and neck. Moderate stenosis of the proximal right ICA. Patient has symptoms on the ipsilateral side therefore right ICA stenosis probably asymptomatic. Patient seen by vascular surgery, who have initiated a carotid Doppler. * Carotid Doppler revealed bilateral plaque formation. Images in measurement suggest 50-70% stenosis of both ICAs. There is progression of disease at increase velocity compared to old exam. Vascular surgery following. * Patient had CLARY completed today, results pending. Per nursing report, it was reported as normal. Await official report. * Check for Covid PCR testing, is patient is experiencing symptoms what he had previously before he had Covid infection. * MRI of the brain patient canceled because of intolerance. * Hemoglobin A1c 7.1. This is fairly well controlled although may try to bring it <7.0. * Lipid panel with cholesterol 143, LDL 57.6, HDL 29, triglycerides 282. Continue Lipitor 80 mg. * 2-D echo revealed normal left ventricular size. Moderate concentric LVH. EF between 55-60%. Unable to perform agitated saline study, patient was scanned sitting up and has TDS images. * PT OT and speech therapy. * Recommend patient to undergo heart monitoring for 30 days to rule out paroxysmal A. fib. * Neurologically clear. We will sign off. Please reconsult neurology if any concerns.
[2021-05-05 16:27] LABS: Glucose,Whole Blood 220 mg/dL (75-99)
[2021-05-05] MEDS: SENNOSIDES-DOCUSATE SODIUM 1 EACH TAB PO SCH (17:09)
--- NOTE | 2021-05-05 17:32 | P.PN ---
Subjective Progress Note Date: 05/05/21 HISTORY OF PRESENT ILLNESS This is a 55-year-old morbidly obese male who resides at [facility] in the [place] under the care of Dr. Ortiz. Patient also follows with Dr. Parker due to ch ronic pain with pain pump in place. He also has history of seizure disorder, CVA 3 with left-sided weakness and significant decreased mobility, history of hypertension, diabetes mellitus type II, hyperlipidemia, coronary artery disease with previous stent to the mid RCA, squamous cell lung cancer status post right middle lobe lobectomy. Patient gives history that he was shaving and looked in the mirror and noticed that he had right facial droop and also then noticed that he had a little weakness in his right arm. He normally has left-sided weakness secondary to CVAs. Patient states he will not undergo MRI as he finds it too hard to lay flat for the procedure. Patient presented to [facility] emergency center. Patient was afebrile, heart rate in 80s, blood pressure 138/73, pulse ox 97% on room air. WBC 5.9, hemoglobin 12, platelet count 197. Sodium 137, potassium 2.9, chloride 91, CO2 36, BUN 21 creatinine 0.74. Blood sugar 236. Liver function tests were normal. Troponin negative. Triglycerides 282, cholesterol 143, LDL 57, HDL 29. EKG was a sinus rhythm at 83 bpm, no ST changes. CAT scan of the brain showed no acute intracranial abnormality. CTA of the head and neck reveal no acute abnormality. Moderate stenosis of the right proximal RCA Chest x-ray reveals moderate congestive changes. Patient was started on full strength aspirin, admitted to the cardiac stepdown unit, consult with neurology, speech, OT and PT. 05/03: Patient has been seen by neurology for possible CVA with recommendations to switch patient to Plavix 75 mg daily. Regarding MRI, patient is willing to try it for MRI today and we will provide a Valium IV and Dilaudid IV 1 hour prior to MRI and will also include the lumbar spine. Patient has had increased in his pain pump and continues to have lumbar pain. He has been afebrile, heart rate 80, blood pressure 156/84, pulse ox 98% on room air. Blood sugars are running between 144 and 208. Echocardiogram is pending. Consult added for cardiology for CLARY tomorrow to rule out cryptogenic stroke. Patient continues to have right-sided facial droop and mild weakness on the right upper extremity Discharge plan remains to return to [facility] most likely on Wednesday. 05/04: Patient went for MRI but was unable to fit in the machine and this was canceled. [employer] rep will be in to check his pain pump. Patient complains of significant pain on the lower back between shoulder blades feet and legs. He also complains of headache. Additional dose of morphine IR given today. Carotid ultrasound revealed 50-70% stenosis in both internal carotid arteries. There is progression of disease. Patient has been seen by Dr. Timmons from vascular surgery. Echocardiogram reveals EF of 55-60% with moderate concentric left ventricular hypertrophy, mild mitral regurgitation, mild tricuspid regurgitation. Patient remains afebrile, heart rate 95, blood pressure 115/65, pulse ox 94% on room air. Capillary blood glucose running between 147 and 248. Cardiology consult is pending. Discharge plan remains to return to [facility] on Wednesday if all testing is completed. 05/05: Patient is scheduled for CLARY today, by cardiology, plan is to return to [facility] in the [place], we will redo Covid swab, recommendation is for both aspirin and Plavix for 3 weeks, thereafter Plavix would be the solitary upper platelet agents, blood sugars between 180-297 preprandial, we'll going to increase NovoLog, 10 units for breakfast, and 16 units lunch and dinner Objective - Vital Signs Vital signs: Vital Signs Temp 98.3 F 05/05/21 04:00 Pulse 81 05/05/21 12:24 Resp 10 L 05/05/21 13:23 BP 113/58 05/05/21 12:24 Pulse Ox 95 05/05/21 12:16 Intake & Output 05/04/21 05/05/21 05/05/21 18:59 06:59 18:59 Intake Total 720 360 Balance 720 360 Weight 147.3 kg Intake: Oral 720 360 Other: Voiding Method Urinal Urinal # Voids 1 2 1 # Bowel Movements 1 - Constitutional General appearance: Present: cooperative, no acute distress - EENT Eyes: Present: EOMI, PERRLA, dentition normal ENT: Present: NA/AT - Respiratory Respiratory: bilateral: CTA, negative: diminished, dullness - Cardiovascular Rhythm: regular Heart sounds: normal: S1, S2 Abnormal Heart Sounds: Absent: systolic murmur, diastolic murmur, rub, S3 Gallop, S4 Gallop, click, other - Gastrointestinal General gastrointestinal: Present: normal bowel sounds - Integumentary Integumentary: Present: normal - Neurologic Neurologic: Present: CNII-XII intact - Musculoskeletal Musculoskeletal: Present: strength equal bilaterally, right sided weakness - Psychiatric Psychiatric: Present: A&O x's 3, appropriate affect - Labs CBC & Chem 7: 05/01/21 18:32 05/03/21 01:31 Labs: Abnormal Lab Results - Last 24 Hours (Table) 05/04/21 05/05/21 05/05/21 Range/Units 20:41 06:20 11:22 POC Glucose (mg/dL) 179 H 224 H 161 H (75-99) mg/dL 05/05/21 Range/Units 16:26 POC Glucose (mg/dL) 220 H (75-99) mg/dL Assessment and Plan Plan: ASSESSMENT AND PLAN 1. Right-sided weakness possible CVA, continue cardiac monitoring, consult with neurology consult, neuro checks per protocol. Continue aspirin 325 mg daily, Lipitor 80 mg at bedtime, Plavix 75 mg daily added. Consult with cardiology for CLARY for cryptogenic stroke. Await CLARY today 05/05 will need event monitor as an outpatient, against for loop recorder 2. History of CVA 3 with residual left-sided paraplegia. Continue aspirin, Lipitor. 3. History of non-small cell lung cancer status post right middle lobe lobectomy. 4. Chronic pain under the care of Dr. Parker. Pain pump is in place. Continue Robaxin, Lyrica 50 mg daily and 225 at bedtime, trazodone 150 mg at bedtime. MRI of the lumbar spine. Patient will be premedicated with 10 mg of IV Valium and 2 mg of IV Dilaudid. [employer] rep to check pain pump. 5. Hypertension. Continue Lasix 40 mg twice daily, Lopressor 12.5 mg at bedtime. 8. Hyperlipidemia. Continue atorvastatin. 9. Diabetes mellitus type 2. Continue NovoLog 4 units at bedtime, 8 units with breakfast, 14 units at lunch and supper, Levemir 38 units twice daily, Tradjenta 5 mg daily, metformin 1000 g twice daily, NovoLog scale before meals and at bedtime. 10. Diabetic neuropathy. Continue trazodone, Lyrica. 11. History of coronary artery disease status post stent in the mid RCA. Continue aspirin, Lipitor 80 mg at bedtime. 12. Restless leg syndrome. Continue Requip 3 mg 3 times daily. 13. Seizure disorder. Continue Depakote 500 mg 2 times daily, Keppra 1500 mg daily. 14. GI prophylaxis and gastroesophageal reflux disease. Continue Pepcid 20 mg twice daily. DISCHARGE PLAN Return to [facility] on Wednesday most likely. With PT OT
[2021-05-05 20:02] LABS: Glucose,Whole Blood 299 mg/dL (75-99)
[2021-05-05] MEDS: traZODone HCL 50 MG TAB PO SCH (20:13)
[2021-05-05] MEDS: PREGABALIN 75 MG CAP PO SCH (20:13)
[2021-05-05] MEDS: ACETAMINOPHEN TAB 325 MG TAB PO PRN (20:14)
[2021-05-05] MEDS: ATORVASTATIN 80 MG TAB PO SCH (20:14)
[2021-05-05] MEDS: MONTELUKAST 10 MG TAB PO SCH (20:14)
[2021-05-05] MEDS: METOPROLOL TARTRATE 12.5 MG TAB PO SCH (20:14)
--- NOTE | 2021-05-05 22:02 | P.TEE ---
Description of Procedure(s): Procedure performed: Transesophageal Echocardiogram with color flow doppler, pulsed wave doppler and continuous wave doppler, moderate conscious sedation Moderate conscious sedation: Moderate conscious sedation was supplied with direct supervision of myself using Versed and Fentanyl. Complications: none Indications: Cryptogenic stroke History: Patient is a pleasant 55 year old male with recurrent strokes. He had noticed acute onset of right facial droop and evaluated by neurology with concern of stroke and recommendation for a CLARY. PROCEDURE: After the risks, benefits and alternatives of the above mentioned procedure was explained in detail with the patient, informed consent was obtained. Patient was brought to the lab in a fasting state. Patient was given IV Versed and Fentanyl for sedation. The throat was sprayed with Hurricane to anesthetize the throat. A lubricated Omni probe was then introduced into the esophagus and stomach and multiple views were obtained. 2D echo with color flow doppler, pulsed wave doppler and continuous wave doppler was utilized. Agitated saline bubbles were injected to assess for any intra-atrial shunt. The probe was then removed. Patient tolerated the procedure well. Patient was transferred to the post procedure area in stable and satisfactory condition. FINDINGS: 1. The aortic valve is tricuspid and function normally. There is mild calcification of the aortic root. 2. The mitral valve appears be normal with mild regurgitation. 3. Tricuspid valve appears to be normal. 4. The interatrial septum is intact. No evidence of PFO. 5. Left atrial appendage is free of clot. 6. Left ventricular size and function appear to be normal with LV EF 55%.
[2021-05-06 05:10] VITALS: RESP 20; TEMP 98.4
[2021-05-06 06:09] LABS: Glucose,Whole Blood 210 mg/dL (75-99)
[2021-05-06] MEDS: POTASSIUM CHLORIDE ER 20 MEQ TAB.ER PO SCH (06:55)
[2021-05-06] MEDS: metFORMIN 500 MG TAB PO SCH (06:55)
[2021-05-06] MEDS: GLIMEPIRIDE 1 MG TAB PO SCH (06:55)
[2021-05-06] MEDS: metOLazone 5 MG TAB PO SCH (06:56)
[2021-05-06] MEDS: INSULIN ASPART (NovoLOG) 100 UNIT/ML VIAL SQ SCH ×2 (06:56→13:04)
[2021-05-06] MEDS: INSULIN DETEMIR (LEVEMIR) 100 UNIT/ML SYR SQ SCH (06:56)
[2021-05-06] MEDS ORDERED: INSULIN ASPART (NovoLOG) 100 UNIT/ML VIAL SQ SCH ×2 (08:00→12:00)
[2021-05-06] MEDS: FUROSEMIDE 40 MG TAB PO SCH (08:35)
[2021-05-06] MEDS: LINAGLIPTIN 5 MG TABLET PO SCH (08:35)
[2021-05-06] MEDS: ASPIRIN 325 MG TAB PO SCH (08:36)
[2021-05-06] MEDS: MORPHINE SULFATE IR 15 MG TABLET PO PRN (08:36)
[2021-05-06] MEDS: FAMOTIDINE 20 MG TAB PO SCH (08:36)
[2021-05-06] MEDS: DIVALPROEX 500 MG TABLET.DR PO SCH (08:36)
[2021-05-06] MEDS: CLOPIDOGREL 75 MG TAB PO SCH (08:36)
[2021-05-06] MEDS: CYANOCOBALAMIN 500 MCG TAB PO SCH (08:36)
[2021-05-06] MEDS: PREGABALIN 50 MG CAP PO SCH (08:36)
[2021-05-06] MEDS: methocarbamoL 500 MG TAB PO SCH (08:37)
[2021-05-06 11:30] LABS: Glucose,Whole Blood 160 mg/dL (75-99)
--- NOTE | 2021-05-06 14:55 | P.DS ---
Providers Date of admission: 05/01/21 19:50 Expected date of discharge: 05/06/21 Attending physician: Cal Handy Consults: 05/01/21 19:52 Consult Physician Routine Consulting Provider: Rissa Nolan Consult Reason/Comments: CVA Do you want consulting provider notified?: Yes 05/03/21 09:23 Consult Physician Routine Consulting Provider: Jez Mccarthy Consult Reason/Comments: moderate R ICA stenosis Do you want consulting provider notified?: Yes 05/03/21 09:24 Consult Physician Routine Consulting Provider: Melva Pritchett Consult Reason/Comments: CLARY for cryptogenic stroke Do you want consulting provider notified?: Yes 05/03/21 14:02 Consult Physician Routine Consulting Provider: Lara Woodard Consult Reason/Comments: patients pain pump was exposed to MRI and needs to be checked Do you want consulting provider notified?: Yes Primary care physician: [facility] Course: HISTORY OF PRESENT ILLNESS This is a 55-year-old morbidly obese male who resides at [facility] in the [place] under the care of Dr. Ortiz. Patient also follows with Dr. Parker due to chronic pain with pain pump in place. He also has history of seizure disorder, CVA 3 with left-sided weakness and significant decreased mobility, history of hypertension, diabetes mellitus type II, hyperlipidemia, coronary artery disease with previous stent to the mid RCA, squamous cell lung cancer status post right middle lobe lobectomy. Patient gives history that he was shaving and looked in the mirror and noticed that he had right facial droop and also then noticed that he had a little weakness in his right arm. He normally has left-sided weakness secondary to CVAs. Patient states he will not undergo MRI as he finds it too hard to lay flat for the procedure. Patient presented to [facility] emergency center. Patient was afebrile, heart rate in 80s, blood pressure 138/73, pulse ox 97% on room air. WBC 5.9, hemoglobin 12, platelet count 197. Sodium 137, potassium 2.9, chloride 91, CO2 36, BUN 21 creatinine 0.74. Blood sugar 236. Liver function tests were normal. Troponin negative. Triglycerides 282, cholesterol 143, LDL 57, HDL 29. EKG was a sinus rhythm at 83 bpm, no ST changes. CAT scan of the brain showed no acute intracranial abnormality. CTA of the head and neck reveal no acute abnormality. Moderate stenosis of the right proximal RCA Chest x-ray reveals moderate congestive changes. Patient was started on full strength aspirin, admitted to the cardiac stepdown unit, consult with neurology, speech, OT and PT. 05/03: Patient has been seen by neurology for possible CVA with recommendations to switch patient to Plavix 75 mg daily. Regarding MRI, patient is willing to try it for MRI today and we will provide a Valium IV and Dilaudid IV 1 hour prior to MRI and will also include the lumbar spine. Patient has had increased in his pain pump and continues to have lumbar pain. He has been afebrile, heart rate 80, blood pressure 156/84, pulse ox 98% on room air. Blood sugars are running between 144 and 208. Echocardiogram is pending. Consult added for cardiology for CLARY tomorrow to rule out cryptogenic stroke. Patient continues to have right-sided facial droop and mild weakness on the right upper extremity Discharge plan remains to return to [facility] most likely on Wednesday. 05/04: Patient went for MRI but was unable to fit in the machine and this was canceled. [employer] rep will be in to check his pain pump. Patient complains of significant pain on the lower back between shoulder blades feet and legs. He also complains of headache. Additional dose of morphine IR given today. Carotid ultrasound revealed 50-70% stenosis in both internal carotid arteries. There is progression of disease. Patient has been seen by Dr. Timmons from vascular surgery. Echocardiogram reveals EF of 55-60% with moderate concentric left ventricular hypertrophy, mild mitral regurgitation, mild tricuspid regurgi tation. Patient remains afebrile, heart rate 95, blood pressure 115/65, pulse ox 94% on room air. Capillary blood glucose running between 147 and 248. Cardiology consult is pending. Discharge plan remains to return to [facility] on Wednesday if all testing is completed. 05/05: Patient is scheduled for CLARY today, by cardiology, plan is to return to [facility] in the [place], we will redo Covid swab, recommendation is for both aspirin and Plavix for 3 weeks, thereafter Plavix would be the solitary upper platelet agents, blood sugars between 180-297 preprandial, we'll going to increase NovoLog, 10 units for breakfast, and 16 units lunch and dinner 05/05, CLARY performed, with no PFO, bubble study was inconclusive, as the patient cannot lay down flat, patient is doing much better, pain management is much better, they have reinitiated pain pump, after MRI exposure, patient will be discharged to outpatient monitoring for 30 day event monitor, transferred to [facility] today, with aspirin 325 mg daily for 4 weeks then remain on Plavix 75 mg daily without aspirin per neurology recommendation. Final diagnosis 1. Right-sided weakness possible CVA, continue cardiac monitoring, consult with neurology consult, neuro checks per protocol. Continue aspirin 325 mg daily 4 weeks then discontinue, Lipitor 80 mg at bedtime, Plavix 75 mg daily added for life. Consult with cardiology for CLARY for cryptogenic stroke negative study,. 30 day event monitor requested, with cardiology for follow-up 2. History of CVA 3 with residual left-sided paraplegia. Continue aspirin, Lipitor. 3. History of non-small cell lung cancer status post right middle lobe lobectomy. 4. Chronic pain under the care of Dr. Parker. Pain pump is in place. Continue Robaxin, Lyrica 50 mg daily and 225 at bedtime, trazodone 150 mg at bedtime. MRI of the lumbar spine. Patient will be premedicated with 10 mg of IV Valium and 2 mg of IV Dilaudid. [employer] rep reinitiated pain pump. 5. Hypertension. Continue Lasix 40 mg twice daily, Lopressor 12.5 mg at bedtime. 8. Hyperlipidemia. Continue atorvastatin. 9. Diabetes mellitus type 2. Continue NovoLog 4 units at bedtime, 8 units with breakfast, 14 units at lunch and supper, Levemir 38 units twice daily, Tradjenta 5 mg daily, metformin 1000 g twice daily, NovoLog scale before meals and at bedtime. 10. Diabetic neuropathy. Continue trazodone, Lyrica. 11. History of coronary artery disease status post stent in the mid RCA. Continue aspirin, Lipitor 80 mg at bedtime. 12. Restless leg syndrome. Continue Requip 3 mg 3 times daily. 13. Seizure disorder. Continue Depakote 500 mg 2 times daily, Keppra 1500 mg daily. 14. GI prophylaxis and gastroesophageal reflux disease. Continue Pepcid 20 mg twice daily. DISCHARGE PLAN Return to [facility] stable Patient Condition at Discharge: Fair Plan - Discharge Summary New Discharge Prescriptions: New Aspirin 325 mg PO DAILY tab Clopidogrel [Plavix] 75 mg PO DAILY tab Continue Acetaminophen [Tylenol] 650 mg PO Q6H PRN PRN Reason: Fever And/ Or Pain Insulin Glargine,Hum.rec.anlog [Basaglar Kwikpen U-100] 38 unit SQ BID Linagliptin [Tradjenta] 5 mg PO DAILY Midodrine HCl [ProAmatine] 10 mg PO TID@0900,1300,1800 rOPINIRole HCL [Requip] 3 mg PO TID@0600,1400,2200 Divalproex Sodium [Depakote] 500 mg PO BID Ergocalciferol [Vitamin D2 (DRISDOL)] 1,250 mcg PO ANDERSON@0900 Montelukast [Singulair] 10 mg PO HS Famotidine [Pepcid] 20 mg PO BID Azelastine HCl 2 spray EA NOSTRIL BID PRN PRN Reason: Allergy Symptoms bisacodyL 10 mg RECTAL DAILY PRN PRN Reason: Constipation guaiFENesin [Mucinex] 600 mg PO BID Potassium Chloride [K-Tab ER] 20 meq PO Q8H Magnesium Hydroxide [Milk of Magnesia] 2,400 mg PO DAILY PRN PRN Reason: Constipation levETIRAcetam [Keppra] 1,500 mg PO BID Furosemide [Lasix] 40 mg PO BID@0800,1400 polyethylene glycoL 3350 [Miralax] 17 gm PO DAILY PRN PRN Reason: Constipation Atorvastatin [Lipitor] 80 mg PO HS Cyanocobalamin [Vitamin B-12] 500 mcg PO DAILY Mag Hydrox/Aluminum Hyd/Simeth [Mylanta Maximum Strength Liq] 30 ml PO Q4H PRN PRN Reason: Gi Upset metFORMIN HCL [Glucophage] 1,000 mg PO BID@0900,1700 Insulin Aspart [NovoLOG Flexpen] 4 units SQ HS PRN PRN Reason: SNACK methocarbamoL [Robaxin] 500 mg PO DAILY Glimepiride [Amaryl] 1 mg PO BID@0900,1700 metOLazone [Zaroxolyn] 5 mg PO Q48H Lactulose 20 gm PO BID PRN PRN Reason: Constipation Metoprolol Tartrate [Lopressor] 12.5 mg PO HS Melatonin 10 mg PO HS Insulin Aspart [NovoLOG Flexpen] 8 units SQ AC-BRKFST@0800 Insulin Aspart [NovoLOG Flexpen] 14 units SQ AC-BID@1200,1700 Methyl Salicylate/Menthol [Salonpas Patch] 1 patch TOPICAL DAILY Pregabalin [Lyrica] 50 mg PO DAILY Sennosides/Docusate Sodium [Senna Plus 8.6-50 mg Tablet] 2 tab PO DAILY@1400 traZODone HCL 150 mg PO HS Nitroglycerin Sl Tabs [Nitrostat] 0.4 mg SL Q5M PRN PRN Reason: Chest Pain Pregabalin [Lyrica] 225 mg PO HS #3 cap MORPHINE ORAL APOLLO 2mg/mL [Morphine Oral Soln 2 MG/ML] 10 mg PO Q6H PRN #30 ml PRN Reason: Pain Discontinued Aspirin 81 mg PO DAILY Discharge Medication List Acetaminophen [Tylenol] 650 mg PO Q6H PRN 05/30/19 [History] Insulin Glargine,Hum.rec.anlog [Basaglar Kwikpen U-100] 38 unit SQ BID 05/30/19 [History] Linagliptin [Tradjenta] 5 mg PO DAILY 05/30/19 [History] Midodrine HCl [ProAmatine] 10 mg PO TID@0900,1300,1800 05/30/19 [History] rOPINIRole HCL [Requip] 3 mg PO TID@0600,1400,2200 05/30/19 [History] Divalproex Sodium [Depakote] 500 mg PO BID 07/21/19 [History] Ergocalciferol [Vitamin D2 (DRISDOL)] 1,250 mcg PO ANDERSON@0900 07/21/19 [History] Montelukast [Singulair] 10 mg PO HS 07/21/19 [History] Famotidine [Pepcid] 20 mg PO BID 11/20/19 [History] Azelastine HCl 2 spray EA NOSTRIL BID PRN 02/12/20 [History] Potassium Chloride [K-Tab ER] 20 meq PO Q8H 02/12/20 [History] bisacodyL 10 mg RECTAL DAILY PRN 02/12/20 [History] guaiFENesin [Mucinex] 600 mg PO BID 02/12/20 [History] Magnesium Hydroxide [Milk of Magnesia] 2,400 mg PO DAILY PRN 05/03/20 [History] levETIRAcetam [Keppra] 1,500 mg PO BID 05/03/20 [History] Furosemide [Lasix] 40 mg PO BID@0800,1400 09/06/20 [History] polyethylene glycoL 3350 [Miralax] 17 gm PO DAILY PRN 09/06/20 [History] Atorvastatin [Lipitor] 80 mg PO HS 10/23/20 [History] Cyanocobalamin [Vitamin B-12] 500 mcg PO DAILY 10/23/20 [History] Mag Hydrox/Aluminum Hyd/Simeth [Mylanta Maximum Strength Liq] 30 ml PO Q4H PRN 10/23/20 [History] metFORMIN HCL [Glucophage] 1,000 mg PO BID@0900,1700 10/23/20 [History] Lactulose 20 gm PO BID PRN 12/14/20 [History] Melatonin 10 mg PO HS 12/14/20 [History] Metoprolol Tartrate [Lopressor] 12.5 mg PO HS 12/14/20 [History] Insulin Aspart [NovoLOG Flexpen] 4 units SQ HS PRN 03/04/21 [History] Insulin Aspart [NovoLOG Flexpen] 8 units SQ AC-BRKFST@0800 03/04/21 [History] Insulin Aspart [NovoLOG Flexpen] 14 units SQ AC-BID@1200,1700 03/04/21 [History] Methyl Salicylate/Menthol [Salonpas Patch] 1 patch TOPICAL DAILY 03/04/21 [History] Pregabalin [Lyrica] 50 mg PO DAILY 03/04/21 [History] Sennosides/Docusate Sodium [Senna Plus 8.6-50 mg Tablet] 2 tab PO DAILY@1400 03/04/21 [History] methocarbamoL [Robaxin] 500 mg PO DAILY 03/04/21 [History] Glimepiride [Amaryl] 1 mg PO BID@0900,1700 05/01/21 [History] Nitroglycerin Sl Tabs [Nitrostat] 0.4 mg SL Q5M PRN 05/01/21 [History] metOLazone [Zaroxolyn] 5 mg PO Q48H 05/01/21 [History] traZODone HCL 150 mg PO HS 05/01/21 [History] Aspirin 325 mg PO DAILY tab 08/15/21 [Rx] Clopidogrel [Plavix] 75 mg PO DAILY tab 05/04/21 [Rx] MORPHINE ORAL APOLLO 2mg/mL [Morphine Oral Soln 2 MG/ML] 10 mg PO Q6H PRN #30 ml 05/04/21 [Rx] Pregabalin [Lyrica] 225 mg PO HS #3 cap 05/04/21 [Rx] Follow up Appointment(s)/Referral(s): Radha Ortiz MD [Primary Care Provider] - 1 Week (At [facility]) Casey Rodas DO [Doctor of Osteopathic Medicine] - 1 Week Ana Parker MD [Medical Doctor] - 1 Week Discharge Disposition: TRANSFER TO SNF/ECF
[2021-05-06 16:41] VITALS: BP 131/68; PULSE 78
== END 2021-05-06 16:19 | DRG 65 ==
LOC: EC 18:22 → 3SCARD 19:50
PROVIDERS: ADMIT Internal Medicine Geriatric Medicine; ATTEND Internal Medicine Geriatric Medicine
PROC: B246ZZ4 Ultrasonography of Right and Left Heart, Transesophageal (ICD-10-PCS; principal; 2021-05-05 12:45)
DX: I63.9 Cerebral infarction, unspecified (principal); Z68.41 Body mass index [BMI] 40.0-44.9, adult; I69.354 Hemiplegia and hemiparesis following cerebral infarction affecting left non-dominant side; R29.810 Facial weakness; E11.40 Type 2 diabetes mellitus with diabetic neuropathy, unspecified; R29.702 NIHSS score 2; I65.21 Occlusion and stenosis of right carotid artery; Z79.82 Long term (current) use of aspirin; Z79.4 Long term (current) use of insulin; I25.2 Old myocardial infarction; Z87.891 Personal history of nicotine dependence; Z82.0 Family history of epilepsy and other diseases of the nervous system; Z82.49 Family history of ischemic heart disease and other diseases of the circulatory system; E66.01 Morbid (severe) obesity due to excess calories; G40.909 Epilepsy, unspecified, not intractable, without status epilepticus; E78.5 Hyperlipidemia, unspecified; I25.10 Atherosclerotic heart disease of native coronary artery without angina pectoris; Z95.5 Presence of coronary angioplasty implant and graft; Z85.118 Personal history of other malignant neoplasm of bronchus and lung; Z99.3 Dependence on wheelchair; Z20.822 Contact with and (suspected) exposure to COVID-19; Z82.3 Family history of stroke; G89.29 Other chronic pain; I11.9 Hypertensive heart disease without heart failure; G25.81 Restless legs syndrome; K21.9 Gastro-esophageal reflux disease without esophagitis; R47.81 Slurred speech; M19.90 Unspecified osteoarthritis, unspecified site; R53.1 Weakness; E87.6 Hypokalemia; I87.2 Venous insufficiency (chronic) (peripheral); G47.33 Obstructive sleep apnea (adult) (pediatric); Z90.2 Acquired absence of lung [part of]; F10.21 Alcohol dependence, in remission; F32.9 Major depressive disorder, single episode, unspecified; I49.1 Atrial premature depolarization; J44.9 Chronic obstructive pulmonary disease, unspecified; Z79.899 Other long term (current) drug therapy; Z86.16 Personal history of COVID-19; Z96.89 Presence of other specified functional implants
CPT/HCPCS: 36415; 70450; 70496; 70498; 71045; 80053; 80061; 83036; 84132; 84484; 85025; 85610; 85730; 87635; 93005; 93306; 93312; 93320; 93325; 93880; 96360; 99291

== ENCOUNTER 2021-11-15 12:57 | Inpatient (IN) | payer MEDICARE, OTHER ==
[2021-11-15] MEDS ORDERED: SODIUM CHLORIDE 0.9% 1,000 ML IV STA (13:23)
[2021-11-15] MEDS ORDERED: ONDANSETRON 4 MG/2 ML VIAL IVP STA (13:23)
[2021-11-15] MEDS ORDERED: DIAZEPAM 5 MG/ML 2 ML INJ IVP STA ×2 (13:36→15:02)
--- NOTE | 2021-11-15 13:38 | ED ---
General Adult HPI <Anthony Farrar - Last Filed: 11/15/21 19:18> - General Source: patient Mode of arrival: ambulatory Limitations: no limitations <Nacho Baird - Last Filed: 11/16/21 07:10> - General Chief complaint: Nausea/Vomiting/Diarrhea Stated complaint: Nausea, Vomiting Time Seen by Provider: 11/15/21 13:23 - History of Present Illness Initial comments: Dictation was produced using [employer] dictation software. please excuse any grammatical, word or spelling errors. Chief Complaint: 56-year-old male presents emergency department for 5 days of nausea and vomiting History of Present Illness: Is a 56-year-old male who has past medical history coronary artery disease, COPD, diabetes presents emergency department for nausea and vomiting. States that he has some tightness in his epigastric area. Patient complaining of severe episodes of nausea and vomiting the persistence of the last 5 days. Patient is a former smoker. He does not utilize marijuana. He does have a runny nose. He did take over test recently was negative. Patient states the pain is nonradiating. Patient has any constitutional symptoms. No obvious sick contacts. Patient denies vertigo. The ROS documented in this emergency department record has been reviewed and confirmed by me. Those systems with pertinent positive or negative responses have been documented in the HPI. All other systems are other negative and/or noncontributory. PHYSICAL EXAM: General Impression: Alert and oriented x3, acute distress secondary to nausea HEENT: Normocephalic atraumatic, extra-ocular movements intact, pupils equal and reactive to light bilaterally, mucous membranes moist. Cardiovascular: Heart regular rate and rhythm Chest: Able to complete full sentences, no retractions, no tachypnea Abdomen: abdomen soft, non-tender, non-distended, no organomegaly Musculoskeletal: Pulses present and equal in all extremities, no peripheral edema Motor: no focal deficits noted Neurological: CN II-XII grossly intact, no focal motor or sensory deficits noted Skin: Intact with no visualized rashes Psych: Normal affect and mood ED course: 56-year-old male presents emergency department for severe nausea vomiting. He does have some diarrhea and rhinorrhea. Strongly suspect viral gastroenteritis. Vital Signs upon arrival are within acceptable limits. Patient reevaluated the bedside. States that his symptoms are slightly better however he does still appear to be toxic. States that the run does feel like it spinning. He does have history of strokes. Symptoms benign with for 5 days however there is concern of vertebrobasilar insufficiency given the severity of his symptoms and the fact that it's symptomatic at rest as well. CT of the brain and CT angios of the head and neck are ordered. Patient care sent out to Dr. Farrar. Labs are reviewed. CBC is unremarkable. Metabolic panel is within acceptable limits. EKG interpretation: Ventricular rate 65, sinus rhythm,. Interval 169, QRS 103, QTC 422. No CA prolongation, no QTC prolongation, no ST or T-wave changes noted. Overall, this EKG is unremarkable (Nacho Baird) - Related Data Home Medications Medication Instructions Recorded Confirmed Insulin Glargine,Hum.rec.anlog 38 unit SQ BID 05/30/19 11/15/21 [Basaglar Kwikpen U-100] Linagliptin [Tradjenta] 5 mg PO DAILY 05/30/19 11/15/21 rOPINIRole HCL [Requip] 3 mg PO TID 05/30/19 11/15/21 Montelukast [Singulair] 10 mg PO HS 07/21/19 11/15/21 Famotidine [Pepcid] 20 mg PO BID 11/20/19 11/15/21 Potassium Chloride [K-Tab ER] 20 meq PO TID 02/12/20 11/15/21 levETIRAcetam [Keppra] 1,500 mg PO BID 05/03/20 11/15/21 Furosemide [Lasix] 40 mg PO BID 09/06/20 11/15/21 Atorvastatin [Lipitor] 80 mg PO HS 10/23/20 11/15/21 metFORMIN HCL [Glucophage] 1,000 mg PO BID 10/23/20 11/15/21 Metoprolol Tartrate [Lopressor] 12.5 mg PO HS 12/14/20 11/15/21 Insulin Aspart [NovoLOG Flexpen] 16 units SQ ACHS 03/04/21 11/15/21 methocarbamoL [Robaxin] 500 mg PO DAILY 03/04/21 11/15/21 Glimepiride [Amaryl] 1 mg PO BID 05/01/21 11/15/21 traZODone HCL 150 mg PO HS 05/01/21 11/15/21 Previous Rx's Medication Instructions Recorded Clopidogrel [Plavix] 75 mg PO DAILY tab 05/04/21 Pregabalin [Lyrica] 225 mg PO HS #3 cap 05/04/21 Allergies Allergy/AdvReac Type Severity Reaction Status Date / Time baclofen Allergy Unknown Verified 11/15/21 16:25 cyclobenzaprine Allergy Unknown Verified 11/15/21 16:25 [From Flexeril] Review of Systems ROS Other: All systems not noted in ROS Statement are negative. <Anthony Farrar - Last Filed: 11/15/21 19:18> ROS Other: All systems not noted in ROS Statement are negative. <Nacho Baird - Last Filed: 11/16/21 07:10> ROS Statement: Those systems with pertinent positive or pertinent negative responses have been documented in the HPI. Past Medical History Past Medical History: Coronary Artery Disease (CAD), Cancer, COPD, CVA/TIA, Diabetes Mellitus, GERD/Reflux, Hyperlipidemia, Hypertension, Myocardial In farction (HI), Osteoarthritis (OA), Seizure Disorder, Sleep Apnea/CPAP/BIPAP Additional Past Medical History / Comment(s): LAST SEIZURE 2018; lumbar radiculopathy; neuropathy; no CPAP needed per recent sleep study, hx. lung cancer, cellulitis of both lower legs 2020 Last Myocardial Infarction Date:: 10/22/10 History of Any Multi-Drug Resistant Organisms: None Reported Past Surgical History: Back Surgery, Cholecystectomy, Heart Catheterization With Stent Additional Past Surgical History / Comment(s): LAMINECTOMY ,fusion,spinal stimulator LEFT SHOULDER sx, 07-31-15 revison thoracic laminectomy t10- t11/removal of neuro stimulator and wires removed, fused L1&2 to a cage fusion that was previously put in to L3,4,5. May 27/2018. lobectomy of right middle lung Past Anesthesia/Blood Transfusion Reactions: No Reported Reaction Date of Last Stent Placement:: 10/22/10 Past Psychological History: Depression Smoking Status: Former smoker Past Alcohol Use History: None Reported Past Drug Use History: None Reported - Past Family History Brother(s) Family Medical History: Deep Vein Thrombosis (DVT) Mother Family Medical History: Osteoarthritis (OA) Additional Family Medical History / Comment(s): psoriases, Parkinsons Father Family Medical History: Coronary Artery Disease (CAD) Additional Family Medical History / Comment(s): heart problems- quad bypass, <Nacho Baird - Last Filed: 11/16/21 07:10> General Exam Limitations: no limitations <Nacho Baird - Last Filed: 11/16/21 07:10> Course Vital Signs 11/15/21 11/15/21 11/15/21 13:04 14:38 17:00 Temperature 97.1 F L Pulse Rate 65 60 87 Pulse Rate [ Pulse Oximetery ] Respiratory 22 18 18 Rate Blood Pressure 157/83 129/75 Blood Pressure [Right Arm] O2 Sat by Pulse 100 100 95 Oximetry 11/15/21 11/15/21 20:00 20:56 Temperature 98.6 F 98.1 F Pulse Rate 84 Pulse Rate [ 80 Pulse Oximetery ] Respiratory 19 16 Rate Blood Pressure 128/74 Blood Pressure 117/73 [Right Arm] O2 Sat by Pulse 97 98 Oximetry Medical Decision Making - Lab Data Result diagrams: 11/15/21 14:26 11/15/21 14:26 - Radiology Data Radiology results: report reviewed (Imaging reviewed evidence of bilateral infiltrates), image reviewed <Anthony Farrar - Last Filed: 11/15/21 19:18> - Lab Data Result diagrams: 11/15/21 14:26 11/15/21 14:26 <Nacho Baird - Last Filed: 11/16/21 07:10> - Medical Decision Making I did discuss the findings with the patient family as well as Dr. Ortiz. Patient does have evidence of bilateral infiltrates consistent with pneumonia and has had some coughing and sweats. He will be admitted (Anthony Farrar) - Lab Data Lab Results 11/15/21 11/15/21 11/15/21 Range/Units 13:53 14:26 14:26 WBC 8.3 (3.8-10.6) k/uL RBC 4.30 (4.30-5.90) m/uL Hgb 12.7 L (13.0-17.5) gm/dL Hct 38.7 L (39.0-53.0) % MCV 90.0 (80.0-100.0) fL MCH 29.6 (25.0-35.0) pg MCHC 32.9 (31.0-37.0) g/dL RDW 15.5 (11.5-15.5) % Plt Count 206 (150-450) k/uL MPV 7.6 Neutrophils % 80 % Lymphocytes % 13 % Monocytes % 5 % Eosinophils % 1 % Basophils % 0 % Neutrophils # 6.7 (1.3-7.7) k/uL Lymphocytes # 1.0 (1.0-4.8) k/uL Monocytes # 0.4 (0-1.0) k/uL Eosinophils # 0.1 (0-0.7) k/uL Basophils # 0.0 (0-0.2) k/uL Hypochromasia Slight Sodium 134 L (137-145) mmol/L Potassium 5.2 H (3.5-5.1) mmol/L Chloride 99 (98-107) mmol/L Carbon Dioxide 24 (22-30) mmol/L Anion Gap 11 mmol/L BUN 8 L (9-20) mg/dL Creatinine 0.57 L (0.66-1.25) mg/dL Est GFR (CKD-EPI)AfAm >90 (>60 ml/min/1.73 sqM) Est GFR (CKD-EPI)NonAf >90 (>60 ml/min/1.73 sqM) Glucose 135 H (74-99) mg/dL POC Glucose (mg/dL) 138 H (75-99) mg/dL POC Glu Feller Se[employer] Operator ID Hailee Dunlap Calcium 9.3 (8.4-10.2) mg/dL Total Bilirubin 1.9 H (0.2-1.3) mg/dL AST 87 H (17-59) U/L ALT 42 (4-49) U/L Alkaline Phosphatase 92 (38-126) U/L Total Protein 7.7 (6.3-8.2) g/dL Albumin 4.7 (3.5-5.0) g/dL Lipase 275 (23-300) U/L Disposition <Anthony Farrar - Last Filed: 11/15/21 19:18> <Nacho Baird - Last Filed: 11/16/21 07:10> Clinical Impression: Pneumonia, Intractable nausea and vomiting Disposition: ADMITTED IP TO THIS HOSP Condition: Fair
[2021-11-15 13:54] LABS: Glucose,Whole Blood 138 mg/dL (75-99)
[2021-11-15] MEDS ORDERED: METOCLOPRAMIDE 5 MG/ML 2 ML VIAL IVP STA ×2 (14:32→17:18)
[2021-11-15 14:43] LABS: Basophils % (A) 0 %; Eosinophils # (A) 0.1 k/uL (0-0.7); Eosinophils % (A) 1 %; HCT 38.7 % (39.0-53.0); HGB 12.7 gm/dL (13.0-17.5); Hypochromasia Slight; Lymphocytes % (A) 13 %; MCH 29.6 pg (25.0-35.0); MCHC 32.9 g/dL (31.0-37.0); Mean Platelet Volume 7.6; Monocytes # (A) 0.4 k/uL (0-1.0); Monocytes % (A) 5 %; Neutrophils # (A) 6.7 k/uL (1.3-7.7); Neutrophils % (A) 80 %; Platelet Count 206 k/uL (150-450); RDW 15.5 % (11.5-15.5); WBC 8.3 k/uL (3.8-10.6)
[2021-11-15 14:45] LABS: ALT 42 U/L (4-49); AST 87 U/L (17-59); African American GFR (CKD) >90 (>60 ml/min/1.73 sqM); Albumin 4.7 g/dL (3.5-5.0); Alkaline Phosphatase 92 U/L (38-126); Anion Gap 11 mmol/L; Blood Urea Nitrogen 8 mg/dL (9-20); Calcium 9.3 mg/dL (8.4-10.2); Carbon Dioxide 24 mmol/L (22-30); Chloride 99 mmol/L (98-107); Glucose 135 mg/dL (74-99); Lipase 275 U/L (23-300); Non-African American GFR(CKD) >90 (>60 ml/min/1.73 sqM); Sodium 134 mmol/L (137-145); Total Bilirubin 1.9 mg/dL (0.2-1.3); Total Protein 7.7 g/dL (6.3-8.2)
[2021-11-15 14:53] LABS: Potassium 5.2 mmol/L (3.5-5.1)
--- NOTE | 2021-11-15 16:56 | CT ---
EXAMINATION TYPE: CT brain wo con DATE OF EXAM: 11/15/2021 COMPARISON: 05/01/2021 HISTORY: Nausea and vomiting. TECHNIQUE: CT scan of the head performed without contrast CT DLP: 1191.8 mGycm Automated exposure control for dose reduction was used. FINDINGS: Study is degraded by motion and streak. No acute intracranial hemorrhage, midline shift or mass effect. Trinh-white matter differentiation is preserved. CSF spaces and ventricles are maintained. Bilateral maxillary sinus mucosal retention cysts larger on the left. No mastoid air cell effusion. N o acute osseous abnormality. No acute intraorbital abnormality. Lateral ICA atherosclerosis noted. IMPRESSION: NO ACUTE INTRACRANIAL HEMORRHAGE, MIDLINE SHIFT OR MASS EFFECT.
--- NOTE | 2021-11-15 17:36 | XR ---
EXAMINATION TYPE: XR chest 2V DATE OF EXAM: 11/15/2021 COMPARISON: 05/01/2021 HISTORY: 56 years Male. STUDY INDICATION GIVEN: Hypoxemia . TECHNIQUE: AP and lateral chest radiographs IMPRESSION: Patchy right greater than diaphragmatic opacities concerning for pneumonia. No pneumothorax or effusion. No cardiomegaly. No acute osseous abnormality seen.
--- NOTE | 2021-11-15 17:48 | CT ---
EXAMINATION TYPE: CT angio head neck DATE OF EXAM: 11/15/2021 HISTORY: Nausea and vomiting. COMPARISON: 05/01/2021 CT DLP: 987.8 mGycm. Automated Exposure Control for Dose Reduction was Utilized. TECHNIQUE: CTA scan of the neck is performed with IV Contrast, patient injected with 65ml mL of Isov ue 370, axial images are obtained, coronal and sagittal reformatted images are reviewed. 3D reconstru cted images are created on an independent workstation and reviewed. FINDINGS: Significantly limited evaluation by motion. Further limitation by suboptimal arterial opacification. There are sclerotic calcifications in the arch of the aorta at the region of the left subclavian, lef t common carotid and right brachiocephalic. Mild narrowing of the proximal right brachiocephalic roslyn ry from calcific plaque. Moderate right mild left common carotid bifurcation narrowing secondary to calcific and soft tissue p laque, suboptimal characterization due to motion. Bilateral ICAs patent. Atherosclerotic calcifications are seen in the intracranial segments of the IC As. Large proximal segments the CATHY, MCA and RESIDENT CARE SPEC are patent. Patent basilar and vertebral arteries. Patent dural venous sinuses. There are findings: Mild to moderate degenerative changes of the spine. Generalized osteopenia. IMPRESSION: Evaluation by motion and suboptimal opacification of the arteries. No arterial occlusion seen. See body of report for multiple areas of arterial narrowing. NASCET criteria was used in interpretation of this exam?
[2021-11-15] MEDS ORDERED: cefTRIAXone IN SWFI 1,000 MG/10 ML SYRINGE IVP STA (18:26)
[2021-11-15] MEDS ORDERED: HYDROmorphone 1 MG/ML 1 ML SYRINGE IVP STA (18:26)
[2021-11-15] MEDS ORDERED: PIPERACILLIN-TAZOBACTAM 3.375 GM in SODIUM CHLORIDE 0.9% 100 ML IVPB STA (18:40)
[2021-11-15] MEDS ORDERED: PNEUMONIA PROTOCOL UTILIZED 1 EACH MISC PO PRN (19:20)
[2021-11-15 20:37] LABS: Influenza A Not Detected (Not Detectd); Influenza B Not Detected (Not Detectd)
[2021-11-15] MEDS ORDERED: POTASSIUM CHLORIDE ER 20 MEQ TAB.ER PO SCH (22:45)
[2021-11-16] MEDS: PIPERACILLIN-TAZOBACTAM 3.375 GM in SODIUM CHLORIDE 0.9% 100 ML IVPB SCH ×3 (00:17→16:51)
[2021-11-16] MEDS: traZODone HCL 50 MG TAB PO SCH ×2 (00:18→21:17)
[2021-11-16] MEDS: PREGABALIN 75 MG CAP PO SCH ×2 (00:19→21:16)
[2021-11-16] MEDS: GLIMEPIRIDE 1 MG TAB PO SCH ×3 (00:19→21:17)
[2021-11-16] MEDS: metFORMIN 500 MG TAB PO SCH ×3 (00:19→21:17)
[2021-11-16] MEDS: FAMOTIDINE 20 MG TAB PO SCH ×3 (00:19→21:18)
[2021-11-16] MEDS: MONTELUKAST 10 MG TAB PO SCH ×2 (00:19→21:17)
[2021-11-16] MEDS: ATORVASTATIN 80 MG TAB PO SCH ×2 (00:19→21:17)
[2021-11-16] MEDS: METOPROLOL TARTRATE 12.5 MG TAB PO SCH ×2 (00:19→21:17)
[2021-11-16] MEDS: SODIUM CHLORIDE 0.9% 1,000 ML IV SCH ×4 (00:20→16:54)
[2021-11-16] MEDS: CLOPIDOGREL 75 MG TAB PO SCH ×2 (00:20→21:17)
[2021-11-16 00:28] LABS: Glucose,Whole Blood 120 mg/dL (75-99)
[2021-11-16 06:53] LABS: Glucose,Whole Blood 101 mg/dL (75-99)
[2021-11-16] MEDS: LINAGLIPTIN 5 MG TABLET PO SCH (07:14)
[2021-11-16] MEDS: methocarbamoL 500 MG TAB PO SCH (07:18)
[2021-11-16] MEDS: INSULIN ASPART (NovoLOG) 100 UNIT/ML VIAL SQ SCH ×4 (07:19→21:15)
[2021-11-16] MEDS: INSULIN DETEMIR (LEVEMIR) 100 UNIT/ML SYR SQ SCH ×2 (08:09→21:15)
[2021-11-16 08:21] LABS: Amphetamine Screen,Urine Not Detected (NotDetected); Barbiturate Screen,Urine Not Detected (NotDetected); Benzodiazepines Screen,Urine Detected (NotDetected); Cocaine Screen,Urine Not Detected (NotDetected); Methadone Screen, Urine Not Detected (NotDetected); Opiate Screen,Urine Detected (NotDetected); Oxycodone Screen, Urine Not Detected (NotDetected); Phencyclidine Screen,Urine Not Detected (NotDetected); Tricyclic Antidepressant,Urine Not Detected (NotDetected); Urn Cannabinoid Scrn Detected (NotDetected)
--- NOTE | 2021-11-16 08:50 | XR ---
EXAMINATION TYPE: XR chest 2V DATE OF EXAM: 11/16/2021 COMPARISON: Chest x-ray 11/15/2021 HISTORY: Pneumonia TECHNIQUE: Frontal and lateral views of the chest are obtained. FINDINGS: There is no pleural effusion or pneumothorax seen. The cardiac silhouette size is within normal limits. The osseous structures are intact. Technique is somewhat limited by patient body hab itus. Question some perihilar vascular indistinctness, patchy groundglass density. IMPRESSION: Difficult to exclude pneumonia, early airspace disease although findings may be technica l. Correlate.
[2021-11-16 11:22] LABS: Glucose,Whole Blood 162 mg/dL (75-99)
--- NOTE | 2021-11-16 14:31 | P.HPIM ---
History of Present Illness H&P Date: 11/16/21 This is a 55-year-old morbidly obese male under my care of Dr. Ortiz. Patient also follows with Dr. Parker due to chronic pain with pain pump in place with morphine,. He also has history of seizure disorder, CVA 4 with left-sided weakness and significant decreased mobility, history of hypertension, diabetes mellitus type II, hyperlipidemia, coronary artery disease with previous stent to the mid RCA, squamous cell lung cancer status post right middle lobe lobectomy. . He normally has left-sided weakness secondary to CVAs. He currently resides at home, and is independent with walker for short term, and ambulation otherwise will be in the wheelchair. Patient presents to the emergency room, secondary to nausea vomiting, and has been sick for 7 days, no abdominal pain, stools are yellow, vomitus is yellow, nonbloody, no hematochezia, no recent antibiotics, he has been using since treated marijuana, high potency, that can be as much as 90% potency for THC w hich is vaporized or use heated and inhaled, as well as other marijuana buds which he smokes.. He constantly uses this, 4 times a day, however she decreased the use of the concentrated hypointensity marijuana, 3 days ago. Patient denies any headache, no chills, patient relates a prior cholecystectomy, no formal diagnosis of gastroparesis. Patient denies any vertigo, no headache. No upper and lower motor weaknesses that is new. Emergency room, urine drug screen, positive for opiates, benzos, and THC, negative for influenza A and B, negative for RSV PCR, and barnes virus PCR chest x-ray shows suspected infiltrates, bilaterally, carotid anginal head and neck, shows small narrowing of the right brachiocephalic artery, from a subtle calcific plaque,, CT of the brain, shows knowing for cranial hemorrhage, midline shift, or mass effect. Patient is admitted with intractable nausea and vomiting suspected aspiration pneumonia, possibly related to marijuana toxicity, and past related to marijuana withdrawal Final diagnosis 1. Intractable nausea and vomiting, with gastroeneteritis negative for barnes virus, multifactorial, including gastroenteritis, which could be self-limiting, and marijuana toxicity, with possible withdrawal. Patient was counseled r egarding the high potency marijuana that he vaporize his, and counseled to decrease its use. Might need mirtazapine, however symptoms have resolved, as when necessary nausea vomiting medication 2. Aspiration pneumonia suspected, check for pro-calcitonin, patient is on IV Zosyn, possible discharge over the next 24 hours. Patient is afebrile and switch to oral antibiotic 3. Diabetes mellitus, on glimepiride 1 mg twice a day, Levemir 25 twice a day, metformin 1 g twice a day, Accu-Cheks before meals and at bedtime, followed closely outpatient, for A1c 4 History of CVA 4 with residual left-sided paraplegia. Continue aspirin, Lipitor. 5 History of non-small cell lung cancer status post right middle lobe lobectomy. Follows with oncology 4. Chronic pain under the care of Dr. Parker. Pain pump is in place. Continue Robaxin, Lyrica 50 mg daily and 225 at bedtime, trazodone 150 mg at bedtime. [employer] pain pump. 5. Hypertension. Continue Lasix 40 mg twice daily, Lopressor 12.5 mg at bedtime. 8. Hyperlipidemia. Continue atorvastatin. 9. Diabetes mellitus type 2. Continue NovoLog 4 units at bedtime, 8 units with breakfast, 14 units at lunch and supper, Levemir 38 units twice daily, Tradjenta 5 mg daily, metformin 1000 g twice daily, NovoLog scale before meals and at bedtime. 10. Diabetic neuropathy. Continue trazodone, Lyrica. 11. History of coronary artery disease status post stent in the mid RCA. Continue aspirin, Lipitor 80 mg at bedtime. 12. Restless leg syndrome. Continue Requip 3 mg 3 times daily. 13. Seizure disorder. Continue Depakote 500 mg 2 times daily, Keppra 1500 mg daily. Check for Keppra levels 14. GI prophylaxis and gastroesophageal reflux disease. Continue Pepcid 20 mg twice daily. Discharge planning, to home, in the next 24 hours Review of Systems Constitutional: Reports as per HPI, Denies anorexia, Denies chills, Denies fever, Denies night sweats, Denies poor appetite, Denies weight loss Ears, nose, mouth and throat: Reports as per HPI Cardiovascular: Reports as per HPI, Denies chest pain, Denies edema, Denies irregular heart beat, Denies leg edema, Denies lightheadedness, Denies rapid heart beat, Denies syncope Respiratory: Reports as per HPI, Denies cough, Denies cough with sputum Gastrointestinal: Reports diarrhea, Reports nausea, Reports vomiting, Denies ab dominal pain Genitourinary: Reports as per HPI, Denies hematuria, Denies nocturia, Denies urinary hesitancy Musculoskeletal: Reports as per HPI, Denies loss of height Integumentary: Reports as per HPI Neurological: Reports as per HPI, Reports gait dysfunction Psychiatric: Reports as per HPI, Reports memory loss, Denies confusion, Denies hallucinations, Denies hopelessness, Denies irritability Endocrine: Reports as per HPI, Reports excessive thirst, Denies high blood sugars, Denies palpitations, Denies polydipsia Hematologic/Lymphatic: Reports as per HPI Allergic/Immunologic: Reports as per HPI, Denies angioedema Past Medical History Past Medical History: Coronary Artery Disease (CAD), Cancer, COPD, CVA/TIA, Diabetes Mellitus, GERD/Reflux, Hyperlipidemia, Hypertension, Myocardial Infarction ([place]), Osteoarthritis (OA), Seizure Disorder, Sleep Apnea/CPAP/BIPAP Additional Past Medical History / Comment(s): LAST SEIZURE 2018; lumbar radiculopathy; neuropathy; no CPAP needed per recent sleep study, hx. lung cancer, cellulitis of both lower legs 2020 Last Myocardial Infarction Date:: 10/22/10 History of Any Multi-Drug Resistant Organisms: None Reported Past Surgical History: Back Surgery, Cholecystectomy, Heart Catheterization With Stent Additional Past Surgical History / Comment(s): LAMINECTOMY ,fusion,spinal stimulator LEFT SHOULDER sx, 07-31-15 revison thoracic laminectomy t10- t11/removal of neuro stimulator and wires removed, fused L1&2 to a cage fusion that was previously put in to L3,4,5. May 27/2018. lobectomy of right middle lung Past Anesthesia/Blood Transfusion Reactions: No Reported Reaction Date of Last Stent Placement:: 10/22/10 Past Psychological History: Depression Smoking Status: Former smoker Past Alcohol Use History: None Reported Past Drug Use History: None Reported - Past Family History Brother(s) Family Medical History: Deep Vein Thrombosis (DVT) Mother Family Medical History: Osteoarthritis (OA) Additional Family Medical History / Comment(s): psoriases, Parkinsons Father Family Medical History: Coronary Artery Disease (CAD) Additional Family Medical History / Comment(s): heart problems- quad bypass, Medications and Allergies Home Medications Medication Instructions Recorded Confirmed Type Insulin Glargine,Hum.rec.anlog 38 unit SQ BID 05/30/19 11/15/21 History [Basaglar Kwikpen U-100] Linagliptin [Tradjenta] 5 mg PO DAILY 05/30/19 11/15/21 History rOPINIRole HCL [Requip] 3 mg PO TID 05/30/19 11/15/21 History Montelukast [Singulair] 10 mg PO HS 07/21/19 11/15/21 History Famotidine [Pepcid] 20 mg PO BID 11/20/19 11/15/21 History Potassium Chloride [K-Tab ER] 20 meq PO TID 02/12/20 11/15/21 History levETIRAcetam [Keppra] 1,500 mg PO BID 05/03/20 11/15/21 History Furosemide [Lasix] 40 mg PO BID 09/06/20 11/15/21 History Atorvastatin [Lipitor] 80 mg PO HS 10/23/20 11/15/21 History metFORMIN HCL [Glucophage] 1,000 mg PO BID 10/23/20 11/15/21 History Metoprolol Tartrate [Lopressor] 12.5 mg PO HS 12/14/20 11/15/21 History Insulin Aspart [NovoLOG Flexpen] 16 units SQ ACHS 03/04/21 11/15/21 History methocarbamoL [Robaxin] 500 mg PO DAILY 03/04/21 11/15/21 History Glimepiride [Amaryl] 1 mg PO BID 05/01/21 11/15/21 History traZODone HCL 150 mg PO HS 05/01/21 11/15/21 History Clopidogrel [Plavix] 75 mg PO DAILY tab 05/04/21 11/15/21 Rx Pregabalin [Lyrica] 225 mg PO HS #3 cap 05/04/21 11/15/21 Rx Allergies Allergy/AdvReac Type Severity Reaction Status Date / Time baclofen Allergy Unknown Verified 11/15/21 16:25 cyclobenzaprine Allergy Unknown Verified 11/15/21 16:25 [From Flexeril] Physical Exam Vitals: Vital Signs Temp Pulse Pulse Resp BP BP Pulse Ox 11/16/21 07:23 98.3 F 60 16 101/65 90 L 11/16/21 07:15 16 11/16/21 02:00 98.2 F 71 18 119/74 93 L 11/15/21 20:56 98.1 F 84 16 128/74 98 11/15/21 20:00 98.6 F 80 19 117/73 97 11/15/21 17:00 87 18 129/75 95 11/15/21 14:38 60 18 157/83 100 11/15/21 13:04 97.1 F L 65 22 100 Intake and Output 11/15/21 11/16/21 11/16/21 22:59 06:59 14:59 Intake Total 1100 Balance 1100 Intake: Intake, IV Titration 1100 Amount Piperacillin-Tazobactam 3 100 .375 gm In Sodium Chloride 0.9% 100 ml @ 25 mls/hr IVPB Q8HR [facility] Rx# :[id number] Sodium Chloride 0.9% 1, 1000 000 ml @ 130 mls/hr IV . Q7H42M [facility] Rx#:[id number] Other: Weight 136.078 kg - Constitutional General appearance: cooperative, no acute distress - EENT Eyes: EOMI, PERRLA, dentition normal ENT: NA/AT, normal oropharynx - Neck Neck: normal ROM - Respiratory Respiratory: bilateral: CTA, negative: diminished, dullness, rales - Cardiovascular Rhythm: regular Heart sounds: normal: S1, S2 Abnormal Heart Sounds: systolic murmur, diastolic murmur, rub, S3 Gallop, S4 Gallop, click, other - Gastrointestinal General gastrointestinal: normal bowel sounds, soft, no tenderness - Neurologic Neurologic: CNII-XII intact - Musculoskeletal Musculoskeletal: gait normal, strength equal bilaterally - Psychiatric Psychiatric: A&O x's 3, appropriate affect, intact judgment & insight Results CBC & Chem 7: 11/15/21 14:26 11/15/21 14:26 Labs: Abnormal Lab Results - Last 24 Hours (Table) 11/15/21 11/15/21 11/15/21 Range/Units 13:53 14:26 14:26 Hgb 12.7 L (13.0-17.5) gm/dL Hct 38.7 L (39.0-53.0) % Sodium 134 L (137-145) mmol/L Potassium 5.2 H (3.5-5.1) mmol/L BUN 8 L (9-20) mg/dL Creatinine 0.57 L (0.66-1.25) mg/dL Glucose 135 H (74-99) mg/dL POC Glucose (mg/dL) 138 H (75-99) mg/dL Total Bilirubin 1.9 H (0.2-1.3) mg/dL AST 87 H (17-59) U/L Urine Opiates Screen (NotDetected) U Benzodiazepines Scrn (NotDetected) U Marijuana (THC) Screen (NotDetected) 11/16/21 11/16/21 11/16/21 Range/Units 00:17 06:52 07:50 Hgb (13.0-17.5) gm/dL Hct (39.0-53.0) % Sodium (137-145) mmol/L Potassium (3.5-5.1) mmol/L BUN (9-20) mg/dL Creatinine (0.66-1.25) mg/dL Glucose (74-99) mg/dL POC Glucose (mg/dL) 120 H 101 H (75-99) mg/dL Total Bilirubin (0.2-1.3) mg/dL AST (17-59) U/L Urine Opiates Screen Detected H (NotDetected) U Benzodiazepines Scrn Detected H (NotDetected) U Marijuana (THC) Screen Detected H (NotDetected) Thrombosis Risk Factor Assmnt - Choose All That Apply Each Factor Represents 1 point: Abnormal pulmonary function (COPD), Age 41-60 years Each Risk Factor Represents 3 Points: History of DVT/PE Thrombosis Risk Factor Assessment Total Risk Factor Score: 5 Thrombosis Risk Factor Assessment Level: High Risk
[2021-11-16 16:47] LABS: Glucose,Whole Blood 136 mg/dL (75-99)
[2021-11-16] MEDS: ACETAMINOPHEN TAB 325 MG TAB PO PRN (19:26)
[2021-11-16 21:07] LABS: Glucose,Whole Blood 145 mg/dL (75-99)
[2021-11-17] MEDS: PIPERACILLIN-TAZOBACTAM 3.375 GM in SODIUM CHLORIDE 0.9% 100 ML IVPB SCH ×2 (00:13→08:11)
[2021-11-17] MEDS: SODIUM CHLORIDE 0.9% 1,000 ML IV SCH ×3 (04:10→18:41)
[2021-11-17 07:45] LABS: Glucose,Whole Blood 121 mg/dL (75-99)
[2021-11-17] MEDS: INSULIN ASPART (NovoLOG) 100 UNIT/ML VIAL SQ SCH ×4 (08:01→21:48)
[2021-11-17] MEDS: INSULIN DETEMIR (LEVEMIR) 100 UNIT/ML SYR SQ SCH ×2 (08:10→21:24)
[2021-11-17] MEDS: metFORMIN 500 MG TAB PO SCH ×2 (08:10→21:24)
[2021-11-17] MEDS: FAMOTIDINE 20 MG TAB PO SCH ×2 (08:11→21:24)
[2021-11-17] MEDS: LINAGLIPTIN 5 MG TABLET PO SCH (08:11)
[2021-11-17] MEDS: methocarbamoL 500 MG TAB PO SCH (08:12)
[2021-11-17] MEDS: GLIMEPIRIDE 1 MG TAB PO SCH ×2 (08:12→21:24)
[2021-11-17 09:59] LABS: Basophils # (A) 0.04 X 10*3/uL (0.00-0.10); Basophils % (A) 0.6 %; Eosinophils # (A) 0.08 X 10*3/uL (0.04-0.35); Eosinophils % (A) 1.2 %; HCT 34.1 % (39.6-50.0); HGB 10.7 g/dL (13.0-17.0); Immature Grans, Automated 0.3 %; Lymphocytes # (A) 2.19 X 10*3/uL (0.90-5.00); Lymphocytes % (A) 32.1 %; MCH 28.5 pg (27.0-32.0); MCHC 31.4 g/dL (32.0-37.0); MCV 90.7 fL (80.0-97.0); Mean Platelet Volume 10.9 fL (9.5-12.2); Monocytes % (A) 7.3 %; NRBC Per 100 WBC 0 /100 WBCS (0.0-0.0); Neutrophils # (A) 3.99 X 10*3/uL (1.80-7.70); Neutrophils % (A) 58.5 %; Platelet Count 190 X 10*3/uL (140-440); RBC 3.76 X 10*6/uL (4.40-5.60); RDW 15.1 % (11.5-14.5); WBC 6.82 X 10*3/uL (4.50-10.00)
[2021-11-17 10:09] LABS: African American GFR (CKD) 121.4 (60.0-200.0); Anion Gap 16.1 mmol/L (10.00-18.00); BUN/Creat Ratio 7.14 Ratio (12.00-20.00); Calcium 8.7 mg/dL (8.7-10.3); Carbon Dioxide 26.9 mmol/L (20.0-27.5); Non-African American GFR(CKD) 104.8 (60.0-200.0); Potassium 2.9 mmol/L (3.5-5.5)
[2021-11-17 10:52] LABS: Glucose,Whole Blood 110 mg/dL (75-99)
[2021-11-17] MEDS: ONDANSETRON 4 MG/2 ML VIAL IVP PRN ×2 (11:54→19:32)
[2021-11-17] MEDS: POTASSIUM CHLORIDE ER 20 MEQ TAB.ER PO SCH ×2 (11:55→13:47)
[2021-11-17] MEDS: FLUTICASONE 50MCG/SPRAY NASAL 16GM EA NOSTRIL SCH (13:48)
[2021-11-17 16:51] LABS: Glucose,Whole Blood 83 mg/dL (75-99)
--- NOTE | 2021-11-17 17:27 | P.CONS ---
History of Present Illness - Reason for Consult Consult date: 11/17/21 Nausea, vomiting, diarrhea Requesting physician: Harlan Cano - Chief Complaint Vomiting, diarrhea - History of Present Illness This is a 56-year-old morbidly obese patient with multiple comorbidities including chronic pain with pain pump, seizure disorders, CVA with residual left-sided weakness and decreased mobility, hypertension, diabetes, hyperlipidemia and coronary artery disease status post stenting as well as lung cancer status post lobectomy. The patient presented to the emergency department 2 days ago with complaints of nausea and vomiting that has been persisting for the last 5-7 days. Patient was coated 19 tested and was negative. He he does smoke excessive amounts of marijuana daily up to 4 times a day either smoking or vaping it. He denies any new medications. States when the vomiting and diarrhea had first started he states he was going multiple times a day up to 10- 15 times however states diarrhea now has 3-4 times a day. He did vomit once today that is also improving. He has C. diff that was negative, stool cultures are currently pending. He is tolerating a full liquid diet. He denies any abdominal pain or epigastric pain. Review of Systems REVIEW OF SYSTEMS: CARDIOPULMONARY: No chest pain or shortness of breath. Gastrointestinal: No epigastric pain. Nausea with vomiting, improving. No hematemesis, coffee-ground emesis. No rectal bleeding, or melena. Diarrhea 5-7 days duration, improving. GENITOURINARY: No dysuria or hematuria. MUSCULOSKELETAL: Residual left-sided weakness, decreased mobility. SKIN: No rashes. No jaundice. ENDOCRINE: No chills, fevers. No excessive weight gain or loss. No polydipsia or polyuria. PSYCHIATRIC: Unremarkable. NEUROLOGY: No change in mental status. Denies dizziness, headache. ENT: Vision unremarkable. CONSTITUTIONAL: No recent weight loss. No fever, chills, night sweats. Past Medical History Past Medical History: Coronary Artery Disease (CAD), Cancer, COPD, CVA/TIA, Diabetes Mellitus, GERD/Reflux, Hyperlipidemia, Hypertension, Myocardial Infarction ([place]), Osteoarthritis (OA), Seizure Disorder, Sleep Apnea/CPAP/BIPAP Additional Past Medical History / Comment(s): LAST SEIZURE 2018; lumbar radiculopathy; neuropathy; no CPAP needed per recent sleep study, hx. lung cancer, cellulitis of both lower legs 2020 Last Myocardial Infarction Date:: 10/22/10 History of Any Multi-Drug Resistant Organisms: None Reported Past Surgical History: Back Surgery, Cholecystectomy, Heart Catheterization With Stent Additional Past Surgical History / Comment(s): LAMINECTOMY ,fusion,spinal s timulator LEFT SHOULDER sx, 07-31-15 revison thoracic laminectomy t10- t11/removal of neuro stimulator and wires removed, fused L1&2 to a cage fusion that was previously put in to L3,4,5. May 27/2018. lobectomy of right middle lung Past Anesthesia/Blood Transfusion Reactions: No Reported Reaction Date of Last Stent Placement:: 10/22/10 Past Psychological History: Depression Smoking Status: Former smoker Past Alcohol Use History: None Reported Past Drug Use History: None Reported - Past Family History Brother(s) Family Medical History: Deep Vein Thrombosis (DVT) Mother Family Medical History: Osteoarthritis (OA) Additional Family Medical History / Comment(s): psoriases, Parkinsons Father Family Medical History: Coronary Artery Disease (CAD) Additional Family Medical History / Comment(s): heart problems- quad bypass, Medications and Allergies Home Medications Medication Instructions Recorded Confirmed Type Insulin Glargine,Hum.rec.anlog 38 unit SQ BID 05/30/19 11/15/21 History [Taishaaglscott Osorio U-100] Linagliptin [Tradjenta] 5 mg PO DAILY 05/30/19 11/15/21 History rOPINIRole HCL [Requip] 3 mg PO TID 05/30/19 11/15/21 History Montelukast [Singulair] 10 mg PO HS 07/21/19 11/15/21 History Famotidine [Pepcid] 20 mg PO BID 11/20/19 11/15/21 History Potassium Chloride [K-Tab ER] 20 meq PO TID 02/12/20 11/15/21 History levETIRAcetam [Keppra] 1,500 mg PO BID 05/03/20 11/15/21 History Furosemide [Lasix] 40 mg PO BID 09/06/20 11/15/21 History Atorvastatin [Lipitor] 80 mg PO HS 10/23/20 11/15/21 History metFORMIN HCL [Glucophage] 1,000 mg PO BID 10/23/20 11/15/21 History Metoprolol Tartrate [Lopressor] 12.5 mg PO HS 12/14/20 11/15/21 History Insulin Aspart [NovoLOG Flexpen] 16 units SQ ACHS 03/04/21 11/15/21 History methocarbamoL [Robaxin] 500 mg PO DAILY 03/04/21 11/15/21 History Glimepiride [Amaryl] 1 mg PO BID 05/01/21 11/15/21 History traZODone HCL 150 mg PO HS 05/01/21 11/15/21 History Clopidogrel [Plavix] 75 mg PO DAILY tab 05/04/21 11/15/21 Rx Pregabalin [Lyrica] 225 mg PO HS #3 cap 05/04/21 11/15/21 Rx Allergies Allergy/AdvReac Type Severity Reaction Status Date / Time baclofen Allergy Unknown Verified 11/15/21 16:25 cyclobenzaprine Allergy Unknown Verified 11/15/21 16:25 [From Flexeril] Physical Exam Vitals: Vital Signs Temp Pulse Resp BP Pulse Ox 11/17/21 08:00 98.5 F 81 17 155/76 97 11/17/21 02:52 97.9 F 64 16 131/83 97 11/16/21 19:26 98.6 F 89 16 128/79 94 L 11/16/21 19:20 94 L 11/16/21 13:41 97.9 F 71 121/72 98 Intake and Output 11/16/21 11/17/21 11/17/21 22:59 06:59 14:59 Intake Total 1100 Balance 1100 Intake: Intake, IV Titration 1100 Amount Piperacillin-Tazobactam 3 100 .375 gm In Sodium Chloride 0.9% 100 ml @ 25 mls/hr IVPB Q8HR [facility] Rx# :[id number] Sodium Chloride 0.9% 1, 1000 000 ml @ 130 mls/hr IV . Q7H42M [facility] Rx#:[id number] Other: Voiding Method Urinal Urinal # Voids 4 # Bowel Movements 1 General appearance: The patient is alert, oriented, appears in no acute distress. Obese. HET: Head is normocephalic and atraumatic. Conjunctiva pink. Sclera anicteric. Neck: Supple without lymphadenopathy. Trachea midline. Heart: S1 S2. Regular rate and rhythm. Lungs: Clear to auscultation. Abdomen: Soft, nontender, nondistended with bowel sounds. No guarding or rigidity. Skin: No rashes. No jaundice. Extremities: Normal skin color and turgor. No pedal edema. Neurological: No focal deficits. Alert and oriented x3. Results CBC & Chem 7: 11/17/21 04:23 11/17/21 04:23 Labs: Abnormal Lab Results - Last 24 Hours (Table) 11/16/21 11/16/21 11/17/21 Range/Units 16:46 21:05 04:23 RBC 3.76 L (4.40-5.60) X 10*6/uL Hgb 10.7 L (13.0-17.0) g/dL Hct 34.1 L (39.6-50.0) % MCHC 31.4 L (32.0-37.0) g/dL RDW 15.1 H (11.5-14.5) % Potassium (3.5-5.5) mmol/L BUN (9.0-27.0) mg/dL BUN/Creatinine Ratio (12.00-20.00) Ratio POC Glucose (mg/dL) 136 H 145 H (75-99) mg/dL 11/17/21 11/17/21 11/17/21 Range/Units 04:23 07:06 10:44 RBC (4.40-5.60) X 10*6/uL Hgb (13.0-17.0) g/dL Hct (39.6-50.0) % MCHC (32.0-37.0) g/dL RDW (11.5-14.5) % Potassium 2.9 L (3.5-5.5) mmol/L BUN 5.0 L (9.0-27.0) mg/dL BUN/Creatinine Ratio 7.14 L (12.00-20.00) Ratio POC Glucose (mg/dL) 121 H 110 H (75-99) mg/dL Microbiology - Last 24 Hours (Table) 11/15/21 19:15 Blood Culture - Preliminary Blood No Growth after 24 hours Assessment and Plan (1) Nausea and vomiting Narrative/Plan: 76-year-old male with multiple comorbidities who presented to the emergency department 2 days ago with complaints of nausea vomiting and diarrhea for 5-7 days duration. Patient states he had been going multiple times of diarrhea up to 10-15 times with multiple episodes of vomiting. Denied any hematemesis or coffee-ground emesis. The blood in his stool or black stool. Patient does regularly uses marijuana, both smoking and vaping up to 4 times a day. He's been afebrile. No evidence of leukocytosis. Etiology unknown at this time, possible etiologies include infectious, gastritis, cannabinoid hyperemesis, or other possible etiologies. Symptoms are improving. Continue with antiemetics, advance diet as tolerated, and diarrhea does not continue to slow down will add antidiarrheal. No plans an endoscopic evaluation at this time. Current Visit: Yes Status: Acute Code(s): R11.2 - NAUSEA WITH VOMITING, UNSPECIFIED SNOMED Code(s): 28071223 (2) Diarrhea Current Visit: Yes Status: Acute Code(s): R19.7 - DIARRHEA, UNSPECIFIED SNOMED Code(s): 75965857 Plan: 1. Continue symptomatic and supportive care 2. Agree with stool cultures 3. Continue antiemetics 4. Recommend marijuana abstinence 5. Protonix 40 mg daily 6. No plan for an endoscopic evaluation 7. Stool studies are negative will begin antidiarrheal such as Imodium Thank you for this consultation, we will continue to follow Dr. Joe Watt I agree with the dictator's note, documented as a scribe by Beatriz Cedillo.
[2021-11-17] MEDS: ACETAMINOPHEN TAB 325 MG TAB PO PRN (19:31)
[2021-11-17 20:28] LABS: Glucose,Whole Blood 120 mg/dL (75-99)
[2021-11-17] MEDS: METOPROLOL TARTRATE 12.5 MG TAB PO SCH (21:24)
[2021-11-17] MEDS: ATORVASTATIN 80 MG TAB PO SCH (21:25)
[2021-11-17] MEDS: MONTELUKAST 10 MG TAB PO SCH (21:25)
[2021-11-17] MEDS: CLOPIDOGREL 75 MG TAB PO SCH (21:25)
[2021-11-17] MEDS: traZODone HCL 50 MG TAB PO SCH (21:25)
[2021-11-17] MEDS: PREGABALIN 75 MG CAP PO SCH (21:25)
[2021-11-18] MEDS: ONDANSETRON 4 MG/2 ML VIAL IVP PRN ×4 (03:14→19:43)
[2021-11-18] MEDS: SODIUM CHLORIDE 0.9% 1,000 ML IV SCH ×3 (03:51→16:58)
[2021-11-18 05:29] LABS: ALT 37 U/L (4-49); AST 41 U/L (17-59); African American GFR (CKD) >90 (>60 ml/min/1.73 sqM); Albumin 3.6 g/dL (3.5-5.0); Albumin/Globulin Ratio 1.6; Alkaline Phosphatase 57 U/L (38-126); Anion Gap 6 mmol/L; Blood Urea Nitrogen 3 mg/dL (9-20); Calcium 8.1 mg/dL (8.4-10.2); Carbon Dioxide 30 mmol/L (22-30); Chloride 103 mmol/L (98-107); Globulin 2.3 g/dL; Glucose 79 mg/dL (74-99); Non-African American GFR(CKD) >90 (>60 ml/min/1.73 sqM); Potassium 3.2 mmol/L (3.5-5.1); Sodium 139 mmol/L (137-145); Total Bilirubin 0.7 mg/dL (0.2-1.3); Total Protein 5.9 g/dL (6.3-8.2)
[2021-11-18 06:55] LABS: Glucose,Whole Blood 96 mg/dL (75-99)
[2021-11-18] MEDS: INSULIN ASPART (NovoLOG) 100 UNIT/ML VIAL SQ SCH ×3 (07:40→16:57)
[2021-11-18] MEDS ORDERED: Potassium Replacement Protocol 1 EACH MISC MISCELLANE PRN (07:43)
--- NOTE | 2021-11-18 08:09 | P.PN ---
Subjective Progress Note Date: 11/17/21 This is a 55-year-old morbidly obese male under my care of Dr. Ortiz. Patient also follows with Dr. Parker due to chronic pain with pain pump in place with morphine,. He also has history of seizure disorder, CVA 4 with left-sided weakness and significant decreased mobility, history of hypertension, diabetes mellitus type II, hyperlipidemia, coronary artery disease with previous stent to the mid RCA, squamous cell lung cancer status post right middle lobe lobectomy. . He normally has left-sided weakness secondary to CVAs. He currently resides at home, and is independent with walker for short term, and ambulation otherwise will be in the wheelchair. Patient presents to the emergency room, secondary to nausea vomiting, and has been sick for 7 days, no abdominal pain, stools are yellow, vomitus is yellow, nonbloody, no hematochezia, no recent antibiotics, he has been using since treated marijuana, high potency, that can be as much as 90% potency for THC which is vaporized or use heated and inhaled, as well as other marijuana buds which he smokes.. He constantly uses this, 4 times a day, however she decreased the use of the concentrated hypointensity marijuana, 3 days ago. Patient denies any headache, no chills, patient relates a prior cholecystectomy, no formal diagnosis of gastroparesis. Patient denies any vertigo, no headache. No upper and lower motor weaknesses that is new. Emergency room, urine drug screen, positive for opiates, benzos, and THC, negative for influenza A and B, negative for RSV PCR, and barnes virus PCR chest x-ray shows suspected infiltrates, bilaterally, carotid anginal head and neck, shows small narrowing of the right brachiocephalic artery, from a subtle calcific plaque,, CT of the brain, shows knowing for cranial hemorrhage, midline shift, or mass effect. Patient is admitted with intractable nausea and vomiting suspected aspiration pneumonia, possibly related to marijuana toxicity, and past related to marijuana withdrawal 11/17: Patient has been afebrile, heart rate 81, blood pressure 155/76, pulse ox 97% on room air. Repeat blood work reveals WBC 6.8, hemoglobin 10.7, platelet count 190. Sodium 142, potassium 2.9, chloride 99, CO2 26, BUN 5 and creatinine 0.7. Blood sugars are running between 110 145. Pro-calcitonin is normal at 0.06. Potassium will be replaced with 80 mEq. Initial Blood culture shows no growth at 24 hours. Stool for C. difficile toxin, stable culture and blood cultures have not been collected. Patient continues to have vomiting and diarrhea, Zofran added. His diet is currently full liquid, no shortness of breath but occasional dry cough. Consult with GI added. Review Of Systems: Constitutional: No fever, no chills, no night sweats. No weight change. No weakness, fatigue or lethargy. No daytime sleepiness. EENT: No headache. No blurred vision or double vision, no loss of vision. No l oss of Hearing, no ringing in the ears, no dizziness. No nasal drainage or congestion. No epistaxis. No sore throat. Lungs: No shortness of breath, Reports cough, no sputum production. No wheezing . Cardiovascular: No chest pain, no lower extremity edema. No palpitations. No paroxysmal nocturnal dyspnea. No orthopnea. No lightheadedness or dizziness. No syncopal episodes. Abdominal: No abdominal pain. Reports nausea, Reports vomiting. Reports diarrhea. No constipation. No bloody or tarry stools.. No loss of appetite. Genitourinary: No dysuria, increased frequency, urgency. No urinary retention. Musculoskeletal: No myalgias. No muscle weakness, no gait dysfunction, no frequent falls. No back pain. No neck pain. Integumentary: No wounds, no lesions. No rash or pruritus. No unusual bruising. No change in hair or nails. Neurologic: No aphasia. No facial droop. No change in mentation. No head injury. No headache. No paralysis. No paresthesia. Psychiatric: No depression. No anxiety. No mood swings. Endocrine: No abnormal blood sugars. No weight change. No excessive sweating or thirst. No cold intolerance. Physical Examination Gen: This is a morbidly obese 56-year-old male. Patient is sitting in recliner appears to be comfortable and in no acute distress. HEENT: Head is atraumatic, normocephalic. Pupils equal, round. Sclerae is anicteric. NECK: Supple. No JVD. No lymphadenopathy. No thyromegaly. LUNGS: Clear to auscultation. No wheezes or rhonchi. No intercostal retractions. HEART: Regular rate and rhythm. No murmur. ABDOMEN: Soft. Bowel sounds are present. No masses. No tenderness. EXTREMITIES: No pedal edema. No calf tenderness. NEUROLOGICAL: Patient is awake, alert and oriented x3. Cranial nerves 2 through 12 are grossly intact. Final diagnosis 1. Intractable nausea and vomiting, with gastroeneteritis negative for barnes virus, multifactorial, including gastroenteritis, which could be self-limiting, and marijuana toxicity, with possible withdrawal. Patient was counseled regarding the high potency marijuana that he vaporize his, and counseled to decrease its use. Consult with GI, [place] added. 2. Aspiration pneumonia suspected, check for pro-calcitonin, patient is on IV Zosyn, possible discharge over the next 24 hours. Patient is afebrile and switch to oral antibiotic 3. Diabetes mellitus, on glimepiride 1 mg twice a day, Levemir 25 twice a day, metformin 1 g twice a day, Accu-Cheks before meals and at bedtime, followed closely outpatient, for A1c 4 History of CVA 4 with residual left-sided paraplegia. Continue aspirin, Lipitor. 5 History of non-small cell lung cancer status post right middle lobe lobectomy. Follows with oncology 4. Chronic pain under the care of Dr. Parker. Pain pump is in place. Continue Robaxin, Lyrica 50 mg daily and 225 at bedtime, trazodone 150 mg at bedtime. [employer] pain pump. 5. Hypertension. Continue Lasix 40 mg twice daily, Lopressor 12.5 mg at bedtime. 8. Hyperlipidemia. Continue atorvastatin. 9. Diabetes mellitus type 2. Continue NovoLog 4 units at bedtime, 8 units with breakfast, 14 units at lunch and supper, Levemir 38 units twice daily, Tradjenta 5 mg daily, metformin 1000 g twice daily, NovoLog scale before meals and at bedtime. 10. Diabetic neuropathy. Continue trazodone, Lyrica. 11. History of coronary artery disease status post stent in the mid RCA. Continue aspirin, Lipitor 80 mg at bedtime. 12. Restless leg syndrome. Continue Requip 3 mg 3 times daily. 13. Seizure disorder. Continue Depakote 500 mg 2 times daily, Keppra 1500 mg daily. Check for Keppra levels 14. GI prophylaxis and gastroesophageal reflux disease. Continue Pepcid 20 mg twice daily. Discharge planning, to home Impression and plan of care have been directed as dictated by the signing physician. Eleonora Almeida nurse practitioner acting as scribe for signing physician. Objective - Vital Signs Vital signs: Vital Signs Temp 98.4 F 11/18/21 07:57 Pulse 69 11/18/21 07:57 Resp 18 11/18/21 07:57 BP 116/72 11/18/21 07:57 Pulse Ox 98 11/18/21 07:57 Intake & Output 11/17/21 11/18/21 11/18/21 18:59 06:59 18:59 Intake Total 1560 Balance 1560 Intake: Intake, IV Titration 1560 Amount Sodium Chloride 0.9% 1, 1560 000 ml @ 130 mls/hr IV . Q7H42M [facility] Rx#:[id number] Other: Voiding Method Urinal Urinal # Voids 2 2 # Bowel Movements 3 - Labs CBC & Chem 7: 11/17/21 04:23 11/18/21 04:38 Labs: Abnormal Lab Results - Last 24 Hours (Table) 11/17/21 11/17/21 11/17/21 Range/Units 04:23 04:23 10:44 RBC 3.76 L (4.40-5.60) X 10*6/uL Hgb 10.7 L (13.0-17.0) g/dL Hct 34.1 L (39.6-50.0) % MCHC 31.4 L (32.0-37.0) g/dL RDW 15.1 H (11.5-14.5) % Potassium 2.9 L (3.5-5.5) mmol/L BUN 5.0 L (9.0-27.0) mg/dL Creatinine (0.66-1.25) mg/dL BUN/Creatinine Ratio 7.14 L (12.00-20.00) Ratio POC Glucose (mg/dL) 110 H (75-99) mg/dL Calcium (8.4-10.2) mg/dL Total Protein (6.3-8.2) g/dL 11/17/21 11/18/21 Range/Units 20:26 04:38 RBC (4.40-5.60) X 10*6/uL Hgb (13.0-17.0) g/dL Hct (39.6-50.0) % MCHC (32.0-37.0) g/dL RDW (11.5-14.5) % Potassium 3.2 L (3.5-5.5) mmol/L BUN 3 L (9.0-27.0) mg/dL Creatinine 0.63 L (0.66-1.25) mg/dL BUN/Creatinine Ratio (12.00-20.00) Ratio POC Glucose (mg/dL) 120 H (75-99) mg/dL Calcium 8.1 L (8.4-10.2) mg/dL Total Protein 5.9 L (6.3-8.2) g/dL Microbiology - Last 24 Hours (Table) 11/15/21 19:15 Blood Culture - Preliminary Blood No Growth after 48 hours
[2021-11-18] MEDS: FAMOTIDINE 20 MG TAB PO SCH ×2 (08:42→20:51)
[2021-11-18] MEDS: INSULIN DETEMIR (LEVEMIR) 100 UNIT/ML SYR SQ SCH (08:42)
[2021-11-18] MEDS: metFORMIN 500 MG TAB PO SCH ×2 (08:44→20:51)
[2021-11-18] MEDS: LINAGLIPTIN 5 MG TABLET PO SCH (08:45)
[2021-11-18] MEDS: methocarbamoL 500 MG TAB PO SCH (08:45)
[2021-11-18] MEDS: GLIMEPIRIDE 1 MG TAB PO SCH ×2 (08:45→20:51)
[2021-11-18] MEDS: POTASSIUM CHLORIDE ER 20 MEQ TAB.ER PO SCH ×2 (08:45→09:02)
[2021-11-18] MEDS: FLUTICASONE 50MCG/SPRAY NASAL 16GM EA NOSTRIL SCH (08:46)
[2021-11-18] MEDS ORDERED: PANTOPRAZOLE 40 MG/10 ML VIAL IVP SCH (09:00)
[2021-11-18] MEDS: ACETAMINOPHEN TAB 325 MG TAB PO PRN (09:02)
[2021-11-18] MEDS ORDERED: POTASSIUM CHLORIDE ER 20 MEQ TAB.ER PO STA (10:32)
[2021-11-18 11:03] LABS: HCT 33.8 % (39.0-53.0); HGB 10.7 gm/dL (13.0-17.5); Hypochromasia Moderate; MCH 29.3 pg (25.0-35.0); MCHC 31.7 g/dL (31.0-37.0); MCV 92.3 fL (80.0-100.0); Mean Platelet Volume 8.6; Platelet Count 170 k/uL (150-450); RBC 3.66 m/uL (4.30-5.90); RDW 15.2 % (11.5-15.5); WBC 6.5 k/uL (3.8-10.6)
[2021-11-18 11:33] LABS: Glucose,Whole Blood 88 mg/dL (75-99)
[2021-11-18] MEDS ORDERED: LOPERAMIDE 2 MG CAP PO PRN (12:49)
[2021-11-18] MEDS ORDERED: LOPERAMIDE 2 MG CAP PO STA (12:49)
[2021-11-18] MEDS ORDERED: SCOPOLAMINE 1.5MG/72HR PATCH TRANSDERM STA (12:49)
[2021-11-18] MEDS: PROCHLORPERAZINE 10 MG TAB PO PRN ×2 (14:00→20:50)
[2021-11-18] MEDS: HYDROcodone/APAP 5-325MG 1 EACH TAB PO PRN ×2 (14:03→19:42)
[2021-11-18] MEDS: IOPAMIDOL CONTRAST (ORAL USE) VIAL PO PRN ×2 (14:39→15:43)
--- NOTE | 2021-11-18 15:27 | P.PN ---
Subjective Progress Note Date: 11/18/21 Principal diagnosis: Nausea vomiting, diarrhea 56-year-old male seen as a follow-up for complaints of nausea vomiting and diarrhea for last 10 days duration. States he's unable to keep anything down. Vomiting has improved and he only had one episode today. States the he has no appetite and he is not taking any full liquids and would like to try to advance his diet. States he had 5 loose bowel movements since midnight. Denies any blood in his stool or black stool. Denies any abdominal pain. States he has a headache and he has sensitive to the light. He has been afebrile. Denies any chills. Objective - Vital Signs Vital signs: Vital Signs Temp 98.4 F 11/18/21 07:57 Pulse 69 11/18/21 07:57 Resp 18 11/18/21 07:57 BP 116/72 11/18/21 07:57 Pulse Ox 98 11/18/21 07:57 Intake & Output 11/17/21 11/18/21 11/18/21 18:59 06:59 18:59 Intake Total 1560 Balance 1560 Intake: Intake, IV Titration 1560 Amount Sodium Chloride 0.9% 1, 1560 000 ml @ 130 mls/hr IV . Q7H42M [facility] Rx#:[id number] Other: Voiding Method Urinal Urinal # Voids 2 2 # Bowel Movements 3 4 - Exam General appearance: The patient is alert, oriented, appears in no acute distress. Obese. HET: Head is normocephalic and atraumatic. Conjunctiva pink. Sclera anicteric. Neck: Supple without lymphadenopathy. Abdomen: Soft, nontender, nondistended with bowel sounds. No guarding or rigidity. Extremities: Normal skin color and turgor. No pedal edema Skin: No rashes, no jaundice Neurological: No focal deficits. Alert and oriented -3. - Labs CBC & Chem 7: 11/18/21 04:38 11/18/21 04:38 Labs: Abnormal Lab Results - Last 24 Hours (Table) 11/17/21 11/17/21 11/18/21 Range/Units 10:44 20:26 04:38 Potassium 3.2 L (3.5-5.1) mmol/L BUN 3 L (9-20) mg/dL Creatinine 0.63 L (0.66-1.25) mg/dL POC Glucose (mg/dL) 110 H 120 H (75-99) mg/dL Calcium 8.1 L (8.4-10.2) mg/dL Total Protein 5.9 L (6.3-8.2) g/dL Microbiology - Last 24 Hours (Table) 11/15/21 19:15 Blood Culture - Preliminary Blood No Growth after 48 hours Assessment and Plan (1) Nausea and vomiting Narrative/Plan: 76-year-old male with multiple comorbidities who presented to the emergency department 2 days ago with complaints of nausea vomiting and diarrhea for 5-7 days duration. Patient states he had been going multiple times of diarrhea up to 10-15 times with multiple episodes of vomiting. Denied any hematemesis or coffee-ground emesis. The blood in his stool or black stool. Patient does regularly uses marijuana, both smoking and vaping up to 4 times a day. He's been afebrile. No evidence of leukocytosis. Etiology unknown at this time, possible etiologies include infectious, gastritis, cannabinoid hyperemesis, or other possible etiologies. Symptoms are improving. Continue with antiemetics, advance diet as tolerated, and diarrhea does not continue to slow down will add antidiarrheal. No plans an endoscopic evaluation at this time. Current Visit: Yes Status: Acute Code(s): R11.2 - NAUSEA WITH VOMITING, UNSPECIFIED SNOMED Code(s): 57580718 (2) Diarrhea Narrative/Plan: Continue with Imodium as ordered. May take 1-2 tablets every 6 hours. Current Visit: Yes Status: Acute Code(s): R19.7 - DIARRHEA, UNSPECIFIED SNOMED Code(s): 42322770 Plan: 1. Continue symptomatic and supportive care 2. Stool cultures, Giardia and cryptosporidium 3. Continue antiemetics as ordered 4. Recommend marijuana abstinence 5. Protonix 40 mg daily 6. No plan for an endoscopic evaluation 7. Continue with Imodium Thank you for this consultation, we will continue to follow Dr. Joe Watt I agree with the dictator's note, documented as a scribe by Beatriz Cedillo.
--- NOTE | 2021-11-18 15:56 | P.PN ---
Subjective Progress Note Date: 11/18/21 This is a 55-year-old morbidly obese male under my care of Dr. Ortiz. Patient also follows with Dr. Parker due to chronic pain with pain pump in place with morphine,. He also has history of seizure disorder, CVA 4 with left-sided weakness and significant decreased mobility, history of hypertension, diabetes mellitus type II, hyperlipidemia, coronary artery disease with previous stent to the mid RCA, squamous cell lung cancer status post right middle lobe lobectomy. . He normally has left-sided weakness secondary to CVAs. He currently resides at home, and is independent with walker for short term, and ambulation otherwise will be in the wheelchair. Patient presents to the emergency room, secondary to nausea vomiting, and has been sick for 7 days, no abdominal pain, stools are yellow, vomitus is yellow, nonbloody, no hematochezia, no recent antibiotics, he has been using since treated marijuana, high potency, that can be as much as 90% potency for THC which is vaporized or use heated and inhaled, as well as other marijuana buds which he smokes.. He constantly uses this, 4 times a day, however she decreased the use of the concentrated hypointensity marijuana, 3 days ago. Patient denies any headache, no chills, patient relates a prior cholecystectomy, no formal diagnosis of gastroparesis. Patient denies any vertigo, no headache. No upper and lower motor weaknesses that is new. Emergency room, urine drug screen, positive for opiates, benzos, and THC, negative for influenza A and B, negative for RSV PCR, and barnes virus PCR chest x-ray shows suspected infiltrates, bilaterally, carotid anginal head and neck, shows small narrowing of the right brachiocephalic artery, from a subtle calcific plaque,, CT of the brain, shows knowing for cranial hemorrhage, midline shift, or mass effect. Patient is admitted with intractable nausea and vomiting suspected aspiration pneumonia, possibly related to marijuana toxicity, and past related to marijuana withdrawal 11/17: Patient has been afebrile, heart rate 81, blood pressure 155/76, pulse ox 97% on room air. Repeat blood work reveals WBC 6.8, hemoglobin 10.7, platelet count 190. Sodium 142, potassium 2.9, chloride 99, CO2 26, BUN 5 and creatinine 0.7. Blood sugars are running between 110 145. Pro-calcitonin is normal at 0.06. Potassium will be replaced with 80 mEq. Initial Blood culture shows no growth at 24 hours. Stool for C. difficile toxin, stable culture and blood cultures have not been collected. Patient continues to have vomiting and diarrhea, Zofran added. His diet is currently full liquid, no shortness of breath but occasional dry cough. Consult with GI added. 11/18: Patient has been seen by GI with recommendations for stool cultures, continue current symptomatic and supportive care, marijuana abstinence, Protonix daily. There is no plan for endoscopy at this time. Stool for occult blood is positive. Potassium is 3.2 and will be replaced. Creatinine 0.63. Patient remains afebrile, heart rate in the 60s to 80s, blood pressure 116/72, pulse ox 98% on room air. She continues to complain of vomiting and diarrhea. CAT scan of the abdomen and pelvis with contrast ordered and patient started on scopolamine patch and Imodium. He states he has gallbladder 12 years ago. Review Of Systems: Constitutional: No fever, no chills, no night sweats. No weight change. No weakness, fatigue or lethargy. No daytime sleepiness. EENT: No headache. No blurred vision or double vision, no loss of vision. No loss of Hearing, no ringing in the ears, no dizziness. No nasal drainage or congestion. No epistaxis. No sore throat. Lungs: No shortness of breath, Reports cough, no sputum production. No wheezing. Cardiovascular: No chest pain, no lower extremity edema. No palpitations. No paroxysmal nocturnal dyspnea. No orthopnea. No lightheadedness or dizziness. No syncopal episodes. Abdominal: No abdominal pain. Reports nausea, Reports vomiting. Reports diarrhea. No constipation. No bloody or tarry stools. Reports loss of appetite. Genitourinary: No dysuria, increased frequency, urgency. No urinary retention. Musculoskeletal: No myalgias. No muscle weakness, no gait dysfunction, no frequent falls. No back pain. No neck pain. Integumentary: No wounds, no lesions. No rash or pruritus. No unusual bruising. No change in hair or nails. Neurologic: No aphasia. No facial droop. No change in mentation. No head injury. No headache. No paralysis. No paresthesia. Psychiatric: No depression. No anxiety. No mood swings. Endocrine: No abnormal blood sugars. No weight change. No excessive sweating or thirst. No cold intolerance. Physical Examination Gen: This is a morbidly obese 56-year-old male. Patient is sitting in recliner appears to be comfortable and in no acute distress. HEENT: Head is atraumatic, normocephalic. Pupils equal, round. Sclerae is anicteric. NECK: Supple. No JVD. No lymphadenopathy. No thyromegaly. LUNGS: Clear to auscultation. No wheezes or rhonchi. No intercostal retrac tions. HEART: Regular rate and rhythm. No murmur. ABDOMEN: Soft. Bowel sounds are present. No masses. No tenderness. EXTREMITIES: No pedal edema. No calf tenderness. NEUROLOGICAL: Patient is awake, alert and oriented x3. Cranial nerves 2 through 12 are grossly intact. Final diagnosis 1. Intractable nausea and vomiting, with gastroeneteritis negative for barnes virus, multifactorial, including gastroenteritis, which could be self-limiting, and marijuana toxicity, with possible withdrawal. Patient was counseled regarding the high potency marijuana that he vaporize his, and counseled to decrease its use. Consult with GI, Zofran added. Imodium and scopolamine patch. CAT scan of the abdomen and pelvis with contrast. 2. Aspiration pneumonia suspected, check for pro-calcitonin, patient is on IV Zosyn, possible discharge over the next 24 hours. Patient is afebrile and switch to oral antibiotic 3. Diabetes mellitus, on glimepiride 1 mg twice a day, Levemir 25 twice a day, metformin 1 g twice a day, Accu-Cheks before meals and at bedtime, followed c julissa outpatient, for A1c 4 History of CVA 4 with residual left-sided paraplegia. Continue aspirin, Lipitor. 5 History of non-small cell lung cancer status post right middle lobe lobectomy. Follows with oncology 4. Chronic pain under the care of Dr. Parker. Pain pump is in place. Continue Robaxin, Lyrica 50 mg daily and 225 at bedtime, trazodone 150 mg at bedtime. [employer] pain pump. 5. Hypertension. Continue Lasix 40 mg twice daily, Lopressor 12.5 mg at bedtime. 8. Hyperlipidemia. Continue atorvastatin. 9. Diabetes mellitus type 2. Continue NovoLog 4 units at bedtime, 8 units with breakfast, 14 units at lunch and supper, Levemir 38 units twice daily, Tradjenta 5 mg daily, metformin 1000 g twice daily, NovoLog scale before meals and at bedtime. 10. Diabetic neuropathy. Continue trazodone, Lyrica. 11. History of coronary artery disease status post stent in the mid RCA. Continue aspirin, Lipitor 80 mg at bedtime. 12. Restless leg syndrome. Continue Requip 3 mg 3 times daily. 13. Seizure disorder. Continue Depakote 500 mg 2 times daily, Keppra 1500 mg daily. Check for Keppra levels 14. GI prophylaxis and gastroesophageal reflux disease. Continue Pepcid 20 mg twice daily. DISCHARGE PLAN Home Impression and plan of care have been directed as dictated by the signing physician. Eleonora Almeida nurse practitioner acting as scribe for signing physician. Objective - Vital Signs Vital signs: Vital Signs Temp 98.4 F 11/18/21 07:57 Pulse 69 11/18/21 07:57 Resp 18 11/18/21 07:57 BP 116/72 11/18/21 07:57 Pulse Ox 98 11/18/21 07:57 Intake & Output 11/17/21 11/18/21 11/18/21 18:59 06:59 18:59 Intake Total 1560 Balance 1560 Intake: Intake, IV Titration 1560 Amount Sodium Chloride 0.9% 1, 1560 000 ml @ 130 mls/hr IV . Q7H42M [facility] Rx#:[id number] Other: Voiding Method Urinal Urinal # Voids 2 2 # Bowel Movements 3 4 - Labs CBC & Chem 7: 11/18/21 04:38 11/18/21 04:38 Labs: Abnormal Lab Results - Last 24 Hours (Table) 11/17/21 11/17/21 11/18/21 Range/Units 10:44 20:26 04:38 Potassium 3.2 L (3.5-5.1) mmol/L BUN 3 L (9-20) mg/dL Creatinine 0.63 L (0.66-1.25) mg/dL POC Glucose (mg/dL) 110 H 120 H (75-99) mg/dL Calcium 8.1 L (8.4-10.2) mg/dL Total Protein 5.9 L (6.3-8.2) g/dL Microbiology - Last 24 Hours (Table) 11/15/21 19:15 Blood Culture - Preliminary Blood No Growth after 48 hours
[2021-11-18 16:42] LABS: Glucose,Whole Blood 149 mg/dL (75-99)
--- NOTE | 2021-11-18 17:22 | CT ---
EXAMINATION TYPE: CT abdomen pelvis w con DATE OF EXAM: 11/18/2021 COMPARISON: None HISTORY: Right upper quadrant pain, vomiting, diarrhea CT DLP: 3711.5 mGycm Automated exposure control for dose reduction was used. CONTRAST: Performed with IV Contrast, patient injected with 100 mL of Isovue 300. Images obtained from the diaphragm to the floor the pelvis with oral and IV contrast. Lung bases are clear of consolidation. There is no pleural effusion. Heart size is normal. There is n o pericardial effusion. There is coronary artery calcification. Liver spleen and stomach pancreas appear intact. Bile ducts are nondilated. There are clips from chol ecystectomy. There is no adrenal mass. Kidneys show satisfactory contrast opacification. There is no hydronephrosi s. Ureters are not dilated. There is no retroperitoneal adenopathy. Delayed images show no sign of ob struction. Bladder distends smoothly. There is no inguinal hernia. The appendix is posterior and appe ars normal. Small bowel pattern is normal. There is no evidence of a bowel obstruction. There is no m esenteric edema. There is no ascites or free air. There is some mild straightening of the lumbar spine. There is posterior fusion surgery from L3 to S1 . There is a first-degree L5-S1 spondylolisthesis. There is severe narrowing of L5-S1 disc space. The bony pelvis is intact. The hip joints are intact. There is device implanted over the left anterior m id abdomen. IMPRESSION: No acute abnormality of the abdomen and pelvis. Lumbar spine surgery. First-degree L5-S1 spondylolist hesis. Atherosclerotic vascular disease. No adverse change compared to exam
[2021-11-18 20:47] LABS: Glucose,Whole Blood 105 mg/dL (75-99)
[2021-11-18] MEDS: CLOPIDOGREL 75 MG TAB PO SCH (20:50)
[2021-11-18] MEDS: MONTELUKAST 10 MG TAB PO SCH (20:51)
[2021-11-18] MEDS: PREGABALIN 75 MG CAP PO SCH (20:51)
[2021-11-18] MEDS: METOPROLOL TARTRATE 12.5 MG TAB PO SCH (20:51)
[2021-11-18] MEDS: ATORVASTATIN 80 MG TAB PO SCH (20:51)
[2021-11-18] MEDS: traZODone HCL 50 MG TAB PO SCH (20:52)
[2021-11-19 00:10] LABS: Cryptosporidium Antigen Negative (Negative)
[2021-11-19] MEDS: INSULIN ASPART (NovoLOG) 100 UNIT/ML VIAL SQ SCH ×5 (00:11→21:03)
[2021-11-19] MEDS: INSULIN DETEMIR (LEVEMIR) 100 UNIT/ML SYR SQ SCH ×3 (00:11→21:26)
[2021-11-19] MEDS: METOCLOPRAMIDE 5 MG/ML 2 ML VIAL IVP PRN ×2 (00:12→16:37)
[2021-11-19] MEDS: HYDROcodone/APAP 5-325MG 1 EACH TAB PO PRN ×3 (01:56→16:37)
[2021-11-19] MEDS: ONDANSETRON 4 MG/2 ML VIAL IVP PRN ×4 (02:00→21:20)
[2021-11-19] MEDS: SODIUM CHLORIDE 0.9% 1,000 ML IV SCH ×2 (03:04→07:42)
[2021-11-19 06:50] LABS: Glucose,Whole Blood 171 mg/dL (75-99)
[2021-11-19] MEDS: LINAGLIPTIN 5 MG TABLET PO SCH (07:40)
[2021-11-19] MEDS: PANTOPRAZOLE 40 MG TABLET PO SCH (07:40)
[2021-11-19] MEDS: FAMOTIDINE 20 MG TAB PO SCH ×2 (07:40→21:23)
[2021-11-19] MEDS: metFORMIN 500 MG TAB PO SCH ×2 (07:40→21:11)
[2021-11-19] MEDS: GLIMEPIRIDE 1 MG TAB PO SCH ×2 (07:41→21:27)
[2021-11-19] MEDS: methocarbamoL 500 MG TAB PO SCH (07:42)
[2021-11-19] MEDS: FLUTICASONE 50MCG/SPRAY NASAL 16GM EA NOSTRIL SCH (07:42)
[2021-11-19 09:39] LABS: HGB 9.7 g/dL (13.0-17.0); MCH 28.2 pg (27.0-32.0); MCHC 30.3 g/dL (32.0-37.0); Mean Platelet Volume 10.7 fL (9.5-12.2); NRBC Per 100 WBC 0 /100 WBCS (0.0-0.0); Platelet Count 175 X 10*3/uL (140-440); RBC 3.44 X 10*6/uL (4.40-5.60); RDW 15.1 % (11.5-14.5); WBC 5.87 X 10*3/uL (4.50-10.00)
[2021-11-19 09:58] LABS: African American GFR (CKD) 121.4 (60.0-200.0); Albumin 3.8 g/dL (3.8-4.9); Albumin/Globulin Ratio 2.11 (1.60-3.17); Anion Gap 13.7 mmol/L (10.00-18.00); BUN/Creat Ratio 3.29 Ratio (12.00-20.00); Blood Urea Nitrogen 2.3 mg/dL (9.0-27.0); Calcium 8.2 mg/dL (8.7-10.3); Carbon Dioxide 23.3 mmol/L (20.0-27.5); Globulin 1.8 g/dL (1.6-3.3); Non-African American GFR(CKD) 104.8 (60.0-200.0); Potassium 3.2 mmol/L (3.5-5.5); Total Bilirubin 0.4 mg/dL (0.30-1.20); Total Protein 5.6 g/dL (6.2-8.2)
[2021-11-19] MEDS ORDERED: Potassium Replacement Protocol 1 EACH MISC MISCELLANE PRN (10:06)
[2021-11-19 11:17] LABS: Glucose,Whole Blood 91 mg/dL (75-99)
[2021-11-19] MEDS: POTASSIUM CHLORIDE ER 20 MEQ TAB.ER PO SCH ×2 (11:34→13:15)
--- NOTE | 2021-11-19 15:11 | P.PN ---
Subjective Progress Note Date: 11/19/21 Principal diagnosis: Nausea vomiting, diarrhea 56-year-old male seen as a follow-up for complaints of nausea vomiting and diarrhea for last 10 days duration. Yesterday he was started on Imodium. States the diarrhea had improved and then he has had 2 episodes this morning. He states he's had no more vomiting but has had some nausea. He was able to tolerate a small amount of breakfast. Stool studies to date are negative. Stool culture is currently pending. He's been afebrile. Denies any abdominal pain. CT of the abdomen and pelvis without any acute findings. Objective - Vital Signs Vital signs: Vital Signs Temp 98.5 F 11/19/21 14:19 Pulse 73 11/19/21 14:19 Resp 18 11/19/21 14:19 BP 156/79 11/19/21 14:19 Pulse Ox 95 11/19/21 14:19 Intake & Output 11/18/21 11/19/21 11/19/21 18:59 06:59 18:59 Other: Voiding Method Urinal Toilet Toilet Urinal Urinal # Voids 4 2 # Bowel Movements 6 1 # Emeses 2 1 - Exam General appearance: The patient is alert, oriented, appears in no acute distress. Obese. HET: Head is normocephalic and atraumatic. Conjunctiva pink. Sclera anicteric. Neck: Supple without lymphadenopathy. Abdomen: Soft, nontender, nondistended with bowel sounds. No guarding or rigidity. Extremities: Normal skin color and turgor. No pedal edema Skin: No rashes, no jaundice Neurological: No focal deficits. Alert and oriented -3. - Labs CBC & Chem 7: 11/19/21 04:26 11/19/21 04:26 Labs: Abnormal Lab Results - Last 24 Hours (Table) 11/18/21 11/18/21 11/19/21 Range/Units 16:41 20:46 04:26 RBC 3.44 L (4.40-5.60) X 10*6/uL Hgb 9.7 L (13.0-17.0) g/dL Hct 32.0 L (39.6-50.0) % MCHC 30.3 L (32.0-37.0) g/dL RDW 15.1 H (11.5-14.5) % Potassium (3.5-5.5) mmol/L BUN (9.0-27.0) mg/dL BUN/Creatinine Ratio (12.00-20.00) Ratio Glucose (70-110) mg/dL POC Glucose (mg/dL) 149 H 105 H (75-99) mg/dL Calcium (8.7-10.3) mg/dL AST (14-35) U/L Total Protein (6.2-8.2) g/dL 11/19/21 11/19/21 Range/Units 04:26 06:48 RBC (4.40-5.60) X 10*6/uL Hgb (13.0-17.0) g/dL Hct (39.6-50.0) % MCHC (32.0-37.0) g/dL RDW (11.5-14.5) % Potassium 3.2 L (3.5-5.5) mmol/L BUN 2.3 L (9.0-27.0) mg/dL BUN/Creatinine Ratio 3.29 L (12.00-20.00) Ratio Glucose 132 H (70-110) mg/dL POC Glucose (mg/dL) 171 H (75-99) mg/dL Calcium 8.2 L (8.7-10.3) mg/dL AST 47 H (14-35) U/L Total Protein 5.6 L (6.2-8.2) g/dL Microbiology - Last 24 Hours (Table) 11/15/21 19:15 Blood Culture - Preliminary Blood No Growth after 72 hours 11/18/21 11:29 Stool Culture - Preliminary Stool Assessment and Plan (1) Nausea and vomiting Narrative/Plan: 76-year-old male with multiple comorbidities who presented to the emergency department 2 days ago with complaints of nausea vomiting and diarrhea for 5-7 days duration. Patient states he had been going multiple times of diarrhea up to 10-15 times with multiple episodes of vomiting. Denied any hematemesis or coffee-ground emesis. The blood in his stool or black stool. Patient does regularly uses marijuana, both smoking and vaping up to 4 times a day. He's been afebrile. No evidence of leukocytosis. Etiology unknown at this time, po ssible etiologies include infectious, gastritis, cannabinoid hyperemesis, or other possible etiologies. Symptoms are improving. Continue with antiemetics, advance diet as tolerated, and diarrhea does not continue to slow down will add antidiarrheal. No plans an endoscopic evaluation at this time. Current Visit: Yes Status: Acute Code(s): R11.2 - NAUSEA WITH VOMITING, UNSPECIFIED SNOMED Code(s): 10618060 (2) Diarrhea Narrative/Plan: Continue with Imodium as ordered. May take 1-2 tablets every 6 hours. Stool studies negative to date. Likely dealing with infectious etiology. CT of abdomen and pelvis with no acute findings. Current Visit: Yes Status: Acute Code(s): R19.7 - DIARRHEA, UNSPECIFIED SNOMED Code(s): 37120805 Plan: 1. Continue symptomatic and supportive care 2. Stool studies ordered, negative to date. Stool culture pending 3. Continue antiemetics as ordered 4. Recommend marijuana abstinence 5. Protonix 40 mg daily 6. Continue with Imodium 7. If no improvement in diarrhea, may need to consider colonoscopy Thank you for this consultation, we will continue to follow Dr. Joe Watt I agree with the dictator's note, documented as a scribe by Beatriz Cedillo.
--- NOTE | 2021-11-19 15:11 | P.PN ---
Subjective Progress Note Date: 11/19/21 This is a 55-year-old morbidly obese male under my care of Dr. Ortiz. Patient also follows with Dr. Parker due to chronic pain with pain pump in place with morphine,. He also has history of seizure disorder, CVA 4 with left-sided weakness and significant decreased mobility, history of hypertension, diabetes mellitus type II, hyperlipidemia, coronary artery disease with previous stent to the mid RCA, squamous cell lung cancer status post right middle lobe lobectomy. . He normally has left-sided weakness secondary to CVAs. He currently resides at home, and is independent with walker for short term, and ambulation otherwise will be in the wheelchair. Patient presents to the emergency room, secondary to nausea vomiting, and has been sick for 7 days, no abdominal pain, stools are yellow, vomitus is yellow, nonbloody, no hematochezia, no recent antibiotics, he has been using since treated marijuana, high potency, that can be as much as 90% potency for THC which is vaporized or use heated and inhaled, as well as other marijuana buds which he smokes.. He constantly uses this, 4 times a day, however she decreased the use of the concentrated hypointensity marijuana, 3 days ago. Patient denies any headache, no chills, patient relates a prior cholecystectomy, no formal diagnosis of gastroparesis. Patient denies any vertigo, no headache. No upper and lower motor weaknesses that is new. Emergency room, urine drug screen, positive for opiates, benzos, and THC, negative for influenza A and B, negative for RSV PCR, and barnes virus PCR chest x-ray shows suspected infiltrates, bilaterally, carotid anginal head and neck, shows small narrowing of the right brachiocephalic artery, from a subtle calcific plaque,, CT of the brain, shows knowing for cranial hemorrhage, midline shift, or mass effect. Patient is admitted with intractable nausea and vomiting suspected aspiration pneumonia, possibly related to marijuana toxicity, and past related to marijuana withdrawal 11/17: Patient has been afebrile, heart rate 81, blood pressure 155/76, pulse ox 97% on room air. Repeat blood work reveals WBC 6.8, hemoglobin 10.7, platelet count 190. Sodium 142, potassium 2.9, chloride 99, CO2 26, BUN 5 and creatinine 0.7. Blood sugars are running between 110 145. Pro-calcitonin is normal at 0.06. Potassium will be replaced with 80 mEq. Initial Blood culture shows no growth at 24 hours. Stool for C. difficile toxin, stable culture and blood cultures have not been collected. Patient continues to have vomiting and diarrhea, Zofran added. His diet is currently full liquid, no shortness of breath but occasional dry cough. Consult with GI added. 11/18: Patient has been seen by GI with recommendations for stool cultures, continue current symptomatic and supportive care, marijuana abstinence, Protonix daily. There is no plan for endoscopy at this time. Stool for occult blood is positive. Potassium is 3.2 and will be replaced. Creatinine 0.63. Patient remains afebrile, heart rate in the 60s to 80s, blood pressure 116/72, pulse ox 98% on room air. She continues to complain of vomiting and diarrhea. CAT scan of the abdomen and pelvis with contrast ordered and patient started on scopolamine patch and Imodium. He states he has gallbladder 12 years ago. 11/19: Patient states that scopolamine patch helped him yesterday but that seemed to lose effectiveness. During the night, Reglan was added. He had one episode of diarrhea this morning and none since. He has some increasing lower extremity edema and IV fluids will be discontinued. Plan for discharge home tomorrow. CAT scan of the abdomen and pelvis with contrast revealed no acute abnormality. First degree L5-S1 spondylolisthesis. Atherosclerotic vascular disease. Review Of Systems: Constitutional: No fever, no chills, no night sweats. No weight change. No weakness, fatigue or lethargy. No daytime sleepiness. EENT: No headache. No blurred vision or double vision, no loss of vision. No loss of Hearing, no ringing in the ears, no dizziness. No nasal drainage or congestion. No epistaxis. No sore throat. Lungs: No shortness of breath, Reports cough, no sputum production. No wheezing. Cardiovascular: No chest pain, no lower extremity edema. No palpitations. No paroxysmal nocturnal dyspnea. No orthopnea. No lightheadedness or dizziness. No syncopal episodes. Abdominal: No abdominal pain. Reports nausea, no vomiting. Reports diarrhea, improving. No constipation. No bloody or tarry stools. Reports loss of appetite. Genitourinary: No dysuria, increased frequency, urgency. No urinary retention. Musculoskeletal: No myalgias. No muscle weakness, no gait dysfunction, no frequent falls. No back pain. No neck pain. Integumentary: No wounds, no lesions. No rash or pruritus. No unusual bruising. No change in hair or nails. Neurologic: No aphasia. No facial droop. No change in mentation. No head injury. No headache. No paralysis. No paresthesia. Psychiatric: No depression. No anxiety. No mood swings. Endocrine: No abnormal blood sugars. No weight change. No excessive sweating or thirst. No cold intolerance. Physical Examination Gen: This is a morbidly obese 56-year-old male. Patient is sitting in recliner appears to be comfortable and in no acute distress. HEENT: Head is atraumatic, normocephalic. Pupils equal, round. Sclerae is anicteric. NECK: Supple. No JVD. No lymphadenopathy. No thyromegaly. LUNGS: Clear to auscultation. No wheezes or rhonchi. No intercostal retractions. HEART: Regular rate and rhythm. No murmur. ABDOMEN: Soft. Bowel sounds are present. No masses. No tenderness. EXTREMITIES: 1+ pedal edema. No calf tenderness. NEUROLOGICAL: Patient is awake, alert and oriented x3. Cranial nerves 2 through 12 are grossly intact. Final diagnosis 1. Intractable nausea and vomiting, with gastroeneteritis negative for barnes virus, multifactorial, including gastroenteritis, which could be self-limiting, and marijuana toxicity, with possible withdrawal. Patient was counseled regarding the high potency marijuana that he vaporize his, and counseled to decrease its use. Consult with GI, [place] added. Imodium and scopolamine patch. CAT scan of the abdomen and pelvis found no abnormalities. Reglan added to scopolamine patch. 2. Aspiration pneumonia ruled out and antibiotics discontinued. 3. Diabetes mellitus, on glimepiride 1 mg twice a day, Levemir 25 twice a day, metformin 1 g twice a day, Accu-Cheks before meals and at bedtime, followed closely outpatient, for A1c 4 History of CVA 4 with residual left-sided paraplegia. Continue aspirin, Lipitor. 5 History of non-small cell lung cancer status post right middle lobe lobectomy. Follows with oncology 4. Chronic pain under the care of Dr. Parker. Pain pump is in place. Continue Robaxin, Lyrica 50 mg daily and 225 at bedtime, trazodone 150 mg at bedtime. [employer]tr[employer] pain pump. 5. Hypertension. Continue Lasix 40 mg twice daily, Lopressor 12.5 mg at bedtime. 8. Hyperlipidemia. Continue atorvastatin. 9. Diabetes mellitus type 2. Continue NovoLog 4 units at bedtime, 8 units with breakfast, 14 units at lunch and supper, Levemir 38 units twice daily, Tradjenta 5 mg daily, metformin 1000 g twice daily, NovoLog scale before meals and at bedtime. 10. Diabetic neuropathy. Continue trazodone, Lyrica. 11. History of coronary artery disease status post stent in the mid RCA. Continue aspirin, Lipitor 80 mg at bedtime. 12. Restless leg syndrome. Continue Requip 3 mg 3 times daily. 13. Seizure disorder. Continue Depakote 500 mg 2 times daily, Keppra 1500 mg daily. Check for Keppra levels 14. GI prophylaxis and gastroesophageal reflux disease. Continue Pepcid 20 mg twice daily. DISCHARGE PLAN Home on Impression and plan of care have been directed as dictated by the signing physician. Eleonora Almeida nurse practitioner acting as scribe for signing physician. Objective - Vital Signs Vital signs: Vital Signs Temp 99 F 11/19/21 07:19 Pulse 67 11/19/21 07:19 Resp 18 11/19/21 07:19 BP 137/74 11/19/21 07:19 Pulse Ox 94 L 11/19/21 08:22 Intake & Output 11/18/21 11/19/21 11/19/21 18:59 06:59 18:59 Other: Voiding Method Urinal Toilet Toilet Urinal Urinal # Voids 4 2 # Bowel Movements 6 1 # Emeses 2 - Labs CBC & Chem 7: 11/19/21 04:26 11/19/21 04:26 Labs: Abnormal Lab Results - Last 24 Hours (Table) 11/18/21 11/18/21 11/19/21 Range/Units 16:41 20:46 04:26 RBC 3.44 L (4.40-5.60) X 10*6/uL Hgb 9.7 L (13.0-17.0) g/dL Hct 32.0 L (39.6-50.0) % MCHC 30.3 L (32.0-37.0) g/dL RDW 15.1 H (11.5-14.5) % Potassium (3.5-5.5) mmol/L BUN (9.0-27.0) mg/dL BUN/Creatinine Ratio (12.00-20.00) Ratio Glucose (70-110) mg/dL POC Glucose (mg/dL) 149 H 105 H (75-99) mg/dL Calcium (8.7-10.3) mg/dL AST (14-35) U/L Total Protein (6.2-8.2) g/dL 11/19/21 11/19/21 Range/Units 04:26 06:48 RBC (4.40-5.60) X 10*6/uL Hgb (13.0-17.0) g/dL Hct (39.6-50.0) % MCHC (32.0-37.0) g/dL RDW (11.5-14.5) % Potassium 3.2 L (3.5-5.5) mmol/L BUN 2.3 L (9.0-27.0) mg/dL BUN/Creatinine Ratio 3.29 L (12.00-20.00) Ratio Glucose 132 H (70-110) mg/dL POC Glucose (mg/dL) 171 H (75-99) mg/dL Calcium 8.2 L (8.7-10.3) mg/dL AST 47 H (14-35) U/L Total Protein 5.6 L (6.2-8.2) g/dL Microbiology - Last 24 Hours (Table) 11/15/21 19:15 Blood Culture - Preliminary Blood No Growth after 72 hours 11/18/21 11:29 Stool Culture - Preliminary Stool
[2021-11-19 16:19] LABS: Glucose,Whole Blood 127 mg/dL (75-99)
[2021-11-19 20:39] LABS: Glucose,Whole Blood 188 mg/dL (75-99)
[2021-11-19] MEDS: traZODone HCL 50 MG TAB PO SCH (21:23)
[2021-11-19] MEDS: MONTELUKAST 10 MG TAB PO SCH (21:24)
[2021-11-19] MEDS: ATORVASTATIN 80 MG TAB PO SCH (21:25)
[2021-11-19] MEDS: CLOPIDOGREL 75 MG TAB PO SCH (21:25)
[2021-11-19] MEDS: PREGABALIN 75 MG CAP PO SCH (21:25)
[2021-11-19] MEDS: METOPROLOL TARTRATE 12.5 MG TAB PO SCH (21:26)
[2021-11-19] MEDS: ACETAMINOPHEN TAB 325 MG TAB PO PRN (21:28)
[2021-11-20 03:00] LABS: Glucose,Whole Blood 82 mg/dL (75-99)
[2021-11-20] MEDS: ONDANSETRON 4 MG/2 ML VIAL IVP PRN (05:26)
[2021-11-20] MEDS: ACETAMINOPHEN TAB 325 MG TAB PO PRN (05:26)
[2021-11-20 06:52] LABS: Glucose,Whole Blood 104 mg/dL (75-99)
[2021-11-20 07:35] VITALS: BP 157/81; PULSE 65; RESP 18; TEMP 98.5
[2021-11-20] MEDS: INSULIN ASPART (NovoLOG) 100 UNIT/ML VIAL SQ SCH ×2 (07:38→11:26)
[2021-11-20] MEDS: FAMOTIDINE 20 MG TAB PO SCH (07:46)
[2021-11-20] MEDS: PANTOPRAZOLE 40 MG TABLET PO SCH (07:46)
[2021-11-20] MEDS: metFORMIN 500 MG TAB PO SCH (07:46)
[2021-11-20] MEDS: LINAGLIPTIN 5 MG TABLET PO SCH (07:46)
[2021-11-20] MEDS: GLIMEPIRIDE 1 MG TAB PO SCH (07:47)
[2021-11-20] MEDS: FLUTICASONE 50MCG/SPRAY NASAL 16GM EA NOSTRIL SCH (07:48)
[2021-11-20] MEDS: HYDROcodone/APAP 5-325MG 1 EACH TAB PO PRN (07:51)
[2021-11-20] MEDS: methocarbamoL 500 MG TAB PO SCH (08:11)
[2021-11-20] MEDS: INSULIN DETEMIR (LEVEMIR) 100 UNIT/ML SYR SQ SCH (08:11)
--- NOTE | 2021-11-20 09:45 | P.PN ---
Subjective Progress Note Date: 11/20/21 Principal diagnosis: Nausea vomiting, diarrhea 56-year-old male seen as a follow-up for complaints of nausea vomiting and diarrhea for last 10 days duration. Today he is seen and evaluated states that diarrhea has improved. He passed gas but no diarrhea. Had some mild nausea this morning but no vomiting. He is tolerating his diet. Patient is requesting to go home. He's been afebrile. Denies any abdominal pain. Objective - Vital Signs Vital signs: Vital Signs Temp 98.5 F 11/20/21 07:04 Pulse 65 11/20/21 07:04 Resp 18 11/20/21 07:04 BP 157/81 11/20/21 07:04 Pulse Ox 96 11/20/21 08:26 Intake & Output 11/19/21 11/20/21 11/20/21 18:59 06:59 18:59 Other: Voiding Method Toilet Toilet Urinal Urinal # Voids 2 4 # Bowel Movements 1 # Emeses 1 - Exam General appearance: The patient is alert, oriented, appears in no acute distress. Obese. HET: Head is normocephalic and atraumatic. Conjunctiva pink. Sclera anicteric. Neck: Supple without lymphadenopathy. Abdomen: Soft, nontender, nondistended with bowel sounds. No guarding or rigidity. Extremities: Normal skin color and turgor. No pedal edema Skin: No rashes, no jaundice Neurological: No focal deficits. Alert and oriented -3. - Labs CBC & Chem 7: 11/19/21 04:26 11/19/21 04:26 Labs: Abnormal Lab Results - Last 24 Hours (Table) 11/19/21 11/19/21 11/19/21 Range/Units 04:26 16:17 20:37 Potassium 3.2 L (3.5-5.5) mmol/L BUN 2.3 L (9.0-27.0) mg/dL BUN/Creatinine Ratio 3.29 L (12.00-20.00) Ratio Glucose 132 H (70-110) mg/dL POC Glucose (mg/dL) 127 H 188 H (75-99) mg/dL Calcium 8.2 L (8.7-10.3) mg/dL AST 47 H (14-35) U/L Total Protein 5.6 L (6.2-8.2) g/dL 11/20/21 Range/Units 06:49 Potassium (3.5-5.5) mmol/L BUN (9.0-27.0) mg/dL BUN/Creatinine Ratio (12.00-20.00) Ratio Glucose (70-110) mg/dL POC Glucose (mg/dL) 104 H (75-99) mg/dL Calcium (8.7-10.3) mg/dL AST (14-35) U/L Total Protein (6.2-8.2) g/dL Microbiology - Last 24 Hours (Table) 11/15/21 19:15 Blood Culture - Preliminary Blood No Growth after 96 hours Assessment and Plan (1) Nausea and vomiting Narrative/Plan: 76-year-old male with multiple comorbidities who presented to the emergency department 2 days ago with complaints of nausea vomiting and diarrhea for 5-7 days duration. Patient states he had been going multiple times of diarrhea up to 10-15 times with multiple episodes of vomiting. Denied any hematemesis or coffee-ground emesis. The blood in his stool or black stool. Patient does re gularly uses marijuana, both smoking and vaping up to 4 times a day. He's been afebrile. No evidence of leukocytosis. Etiology unknown at this time, possible etiologies include infectious, gastritis, cannabinoid hyperemesis, or other possible etiologies. Symptoms are improving. Continue with antiemetics, advance diet as tolerated, and diarrhea does not continue to slow down will add antidiarrheal. No plans an endoscopic evaluation at this time. Vomiting improved patient has mild nausea improved with antiemetics. Current Visit: Yes Status: Acute Code(s): R11.2 - NAUSEA WITH VOMITING, UNSPECIFIED SNOMED Code(s): 35364008 (2) Diarrhea Narrative/Plan: Continue with Imodium as ordered. May take 1-2 tablets every 6 hours. Stool studies negative to date. Likely dealing with infectious etiology. CT of abdomen and pelvis with no acute findings. Diarrhea improved. No plans on endoscopic evaluation at this time. Current Visit: Yes Status: Acute Code(s): R19.7 - DIARRHEA, UNSPECIFIED SNOMED Code(s): 02731649 Plan: 1. Continue symptomatic and supportive care 2. Stool studies ordered, negative to date. Stool culture pending 3. Continue antiemetics as ordered 4. Recommend marijuana abstinence 5. Protonix 40 mg daily 6. Continue with Imodium as needed Thank you for this consultation, the patient is cleared for discharge from gastroenterology. Follow-up as needed. Recommend outpatient colonoscopy when due. Dr. Joe Watt I agree with the dictator's note, documented as a scribe by Beatriz Cedillo.
[2021-11-20 10:51] LABS: African American GFR (CKD) >90 (>60 ml/min/1.73 sqM); Anion Gap 7 mmol/L; Blood Urea Nitrogen 3 mg/dL (9-20); Calcium 8.3 mg/dL (8.4-10.2); Carbon Dioxide 26 mmol/L (22-30); Chloride 108 mmol/L (98-107); Glucose 128 mg/dL (74-99); Non-African American GFR(CKD) >90 (>60 ml/min/1.73 sqM); Potassium 3.6 mmol/L (3.5-5.1); Sodium 141 mmol/L (137-145)
[2021-11-20 11:18] LABS: Glucose,Whole Blood 142 mg/dL (75-99)
--- NOTE | 2021-11-20 11:38 | P.DS ---
Providers Date of admission: 11/15/21 19:20 Expected date of discharge: 11/20/21 Attending physician: Radha Ortiz Consults: 11/17/21 11:37 Consult Physician Routine Consulting Provider: Trisha Watt Consult Reason/Comments: nausea, abd discomfort, diarrhea Do you want consulting provider notified?: Yes Primary care physician: Radha Ortiz Hospital Course: This is a 55-year-old morbidly obese male under my care of Dr. Ortiz. Patient also follows with Dr. Parker due to chronic pain with pain pump in place with morphine,. He also has history of seizure disorder, CVA 4 with left-sided weakness and significant decreased mobility, history of hypertension, diabetes mellitus type II, hyperlipidemia, coronary artery disease with previous stent to the mid RCA, squamous cell lung cancer status post right middle lobe lobectomy. . He normally has left-sided weakness secondary to CVAs. He currently resides at home, and is independent with walker for short term, and ambulation otherwise will be in the wheelchair. Patient presents to the emergency room, secondary to nausea vomiting, and has been sick for 7 days, no abdominal pain, stools are yellow, vomitus is yellow, nonbloody, no hematochezia, no recent antibiotics, he has been using since treated marijuana, high potency, that can be as much as 90% potency for THC which is vaporized or use heated and inhaled, as well as other marijuana buds which he smokes.. He constantly uses this, 4 times a day, however she decreased the use of the concentrated hypointensity marijuana, 3 days ago. Patient denies any headache, no chills, patient relates a prior cholecystectomy, no formal diagnosis of gastroparesis. Patient denies any vertigo, no headache. No upper and lower motor weaknesses that is new. Emergency room, urine drug screen, positive for opiates, benzos, and THC, negative for influenza A and B, negative for RSV PCR, and barnes virus PCR chest x-ray shows suspected infiltrates, bilaterally, carotid anginal head and neck, shows small narrowing of the right brachiocephalic artery, from a subtle calcific plaque,, CT of the brain, shows knowing for cranial hemorrhage, midline shift, or mass effect. Patient is admitted with intractable nausea and vomiting suspected aspiration pneumonia, possibly related to marijuana toxicity, and past related to marijuana withdrawal 11/17: Patient has been afebrile, heart rate 81, blood pressure 155/76, pulse ox 97% on room air. Repeat blood work reveals WBC 6.8, hemoglobin 10.7, platelet count 190. Sodium 142, potassium 2.9, chloride 99, CO2 26, BUN 5 and creatinine 0.7. Blood sugars are running between 110 145. Pro-calcitonin is normal at 0.06. Potassium will be replaced with 80 mEq. Initial Blood culture shows no growth at 24 hours. Stool for C. difficile toxin, stable culture and blood cultures have not been collected. Patient continues to have vomiting and diarrhea, Zofran added. His diet is currently full liquid, no shortness of b reath but occasional dry cough. Consult with GI added. 11/18: Patient has been seen by GI with recommendations for stool cultures, continue current symptomatic and supportive care, marijuana abstinence, Protonix daily. There is no plan for endoscopy at this time. Stool for occult blood is positive. Potassium is 3.2 and will be replaced. Creatinine 0.63. Patient remains afebrile, heart rate in the 60s to 80s, blood pressure 116/72, pulse ox 98% on room air. She continues to complain of vomiting and diarrhea. CAT scan of the abdomen and pelvis with contrast ordered and patient started on scopolamine patch and Imodium. He states he has gallbladder 12 years ago. 11/19: Patient states that scopolamine patch helped him yesterday but that seemed to lose effectiveness. During the night, Reglan was added. He had one episode of diarrhea this morning and none since. He has some increasing lower extremity edema and IV fluids will be discontinued. Plan for discharge home tomorrow. CAT scan of the abdomen and pelvis with contrast revealed no acute abnormality. First degree L5-S1 spondylolisthesis. Atherosclerotic vascular disease. 11/20: Patient states he feels significantly better. Scopolamine patch came off last night and he has only received 1 dose of Zofran early this morning. He denies having any diarrhea. Patient is been seen by GI and cleared for discharge. Patient will be discharged today in stable condition. DISCHARGE DIAGNOSES 1. Intractable nausea and vomiting, with gastroeneteritis 2. Aspiration pneumonia ruled out and antibiotics discontinued. 3. Diabetes mellitus 2 4. History of CVA 4 with residual left-sided paraplegia. 5. History of non-small cell lung cancer status post right middle lobe lobe ctomy. 6. Chronic pain under the care of Dr. Parker. 7. Hypertension. 8. Hyperlipidemia. 9. Diabetes mellitus type 2. 10. Diabetic neuropathy. 11. History of coronary artery disease status post stent in the mid RCA. 12. Restless leg syndrome. 13. Seizure disorder. DISCHARGE PLAN Home Greater than 35 minutes was utilized and coordinating patient's discharge. Impression and plan of care have been directed as dictated by the signing physician. Eleonora Almeida nurse practitioner acting as scribe for signing physician. Patient Condition at Discharge: Good Plan - Discharge Summary Discharge Rx Participant: No New Discharge Prescriptions: New Loperamide [Imodium] 2 mg PO QID PRN cap PRN Reason: Diarrhea Ondansetron [Zofran] 4 mg PO Q8HR PRN #30 tab PRN Reason: Nausea Continue Insulin Glargine,Hum.rec.anlog [Basaglar Kwikpen U-100] 38 unit SQ BID Linagliptin [Tradjenta] 5 mg PO DAILY rOPINIRole HCL [Requip] 3 mg PO TID Montelukast [Singulair] 10 mg PO HS Famotidine [Pepcid] 20 mg PO BID Potassium Chloride [K-Tab ER] 20 meq PO TID levETIRAcetam [Keppra] 1,500 mg PO BID Furosemide [Lasix] 40 mg PO BID Atorvastatin [Lipitor] 80 mg PO HS metFORMIN HCL [Glucophage] 1,000 mg PO BID methocarbamoL [Robaxin] 500 mg PO DAILY Glimepiride [Amaryl] 1 mg PO BID Metoprolol Tartrate [Lopressor] 12.5 mg PO HS Insulin Aspart [NovoLOG Flexpen] 16 units SQ ACHS traZODone HCL 150 mg PO HS Clopidogrel [Plavix] 75 mg PO DAILY tab Pregabalin [Lyrica] 225 mg PO HS #3 cap Discharge Medication List Insulin Glargine,Hum.rec.anlog [Basaglar Kwikpen U-100] 38 unit SQ BID 05/30/19 [History] Linagliptin [Tradjenta] 5 mg PO DAILY 05/30/19 [History] rOPINIRole HCL [Requip] 3 mg PO TID 05/30/19 [History] Montelukast [Singulair] 10 mg PO HS 07/21/19 [History] Famotidine [Pepcid] 20 mg PO BID 11/20/19 [History] Potassium Chloride [K-Tab ER] 20 meq PO TID 02/12/20 [History] levETIRAcetam [Keppra] 1,500 mg PO BID 05/03/20 [History] Furosemide [Lasix] 40 mg PO BID 09/06/20 [History] Atorvastatin [Lipitor] 80 mg PO HS 10/23/20 [History] metFORMIN HCL [Glucophage] 1,000 mg PO BID 10/23/20 [History] Metoprolol Tartrate [Lopressor] 12.5 mg PO HS 12/14/20 [History] Insulin Aspart [NovoLOG Flexpen] 16 units SQ ACHS 03/04/21 [History] methocarbamoL [Robaxin] 500 mg PO DAILY 03/04/21 [History] Glimepiride [Amaryl] 1 mg PO BID 05/01/21 [History] traZODone HCL 150 mg PO HS 05/01/21 [History] Clopidogrel [Plavix] 75 mg PO DAILY tab 05/04/21 [Rx] Pregabalin [Lyrica] 225 mg PO HS #3 cap 05/04/21 [Rx] Loperamide [Imodium] 2 mg PO QID PRN cap 11/20/21 [Rx] Ondansetron [Zofran] 4 mg PO Q8HR PRN #30 tab 11/20/21 [Rx] Follow up Appointment(s)/Referral(s): Radha Ortiz MD [Primary Care Provider] - 11/21/21 9:30 am (With Mary) Trisha Watt MD [STAFF PHYSICIAN] - As Needed Patient Instructions/Handouts: Acute Nausea and Vomiting (DC) Discharge Disposition: HOME SELF-CARE
[2021-11-20 13:06] VITALS: BMI 40.6
== END 2021-11-20 12:50 | disposition home or self-care (01) | DRG 392 ==
LOC: EC 12:57 → 4SSUR 19:20
PROVIDERS: ADMIT Family Medicine; ATTEND Family Medicine
DX: K52.9 Noninfective gastroenteritis and colitis, unspecified (principal); Z68.41 Body mass index [BMI] 40.0-44.9, adult; I69.354 Hemiplegia and hemiparesis following cerebral infarction affecting left non-dominant side; J44.9 Chronic obstructive pulmonary disease, unspecified; E11.40 Type 2 diabetes mellitus with diabetic neuropathy, unspecified; E66.01 Morbid (severe) obesity due to excess calories; E78.5 Hyperlipidemia, unspecified; F12.90 Cannabis use, unspecified, uncomplicated; F32.A Depression, unspecified; G25.81 Restless legs syndrome; G40.909 Epilepsy, unspecified, not intractable, without status epilepticus; G89.29 Other chronic pain; K21.9 Gastro-esophageal reflux disease without esophagitis; I25.10 Atherosclerotic heart disease of native coronary artery without angina pectoris; Z96.89 Presence of other specified functional implants; M43.17 Spondylolisthesis, lumbosacral region; I10 Essential (primary) hypertension; Z20.822 Contact with and (suspected) exposure to COVID-19; I69.398 Other sequelae of cerebral infarction; I25.2 Old myocardial infarction; Z86.19 Personal history of other infectious and parasitic diseases; Z79.02 Long term (current) use of antithrombotics/antiplatelets; Z79.4 Long term (current) use of insulin; Z79.899 Other long term (current) drug therapy; Z85.118 Personal history of other malignant neoplasm of bronchus and lung; Z98.1 Arthrodesis status; Z98.890 Other specified postprocedural states; Z95.5 Presence of coronary angioplasty implant and graft; Z82.49 Family history of ischemic heart disease and other diseases of the circulatory system; Z82.0 Family history of epilepsy and other diseases of the nervous system; Z84.0 Family history of diseases of the skin and subcutaneous tissue; Z88.8 Allergy status to other drugs, medicaments and biological substances
CPT/HCPCS: 36415; 70450; 70496; 70498; 71046; 74177; 80048; 80053; 80177; 80306; 82272; 83690; 84145; 85025; 85027; 87040; 87045; 87046; 87324; 87328; 87329; 87636; 93005; 94760; 96361; 96365; 96366; 96375; 96376; 99285

== ENCOUNTER 2021-12-16 19:56 | Inpatient (IN) | payer MEDICARE, OTHER ==
[2021-12-16] MEDS ORDERED: SODIUM CHLORIDE 0.9% 500 ML 500 ML IV STA (20:10)
[2021-12-16] MEDS ORDERED: ONDANSETRON 4 MG/2 ML VIAL IVP STA ×2 (20:15→22:46)
[2021-12-16 20:26] LABS: Basophils % (A) 0 %; Eosinophils # (A) 0.1 k/uL (0-0.7); Eosinophils % (A) 1 %; HCT 39.8 % (39.0-53.0); HGB 13.1 gm/dL (13.0-17.5); Lymphocytes # (A) 2.1 k/uL (1.0-4.8); Lymphocytes % (A) 22 %; MCH 28.4 pg (25.0-35.0); MCHC 32.9 g/dL (31.0-37.0); Monocytes # (A) 0.4 k/uL (0-1.0); Monocytes % (A) 5 %; Neutrophils # (A) 6.4 k/uL (1.3-7.7); Neutrophils % (A) 70 %; Platelet Count 219 k/uL (150-450); RDW 15.1 % (11.5-15.5); WBC 9.2 k/uL (3.8-10.6)
[2021-12-16 20:35] LABS: ALT 63 U/L (4-49); AST 71 U/L (17-59); African American GFR (CKD) >90 (>60 ml/min/1.73 sqM); Albumin 4.5 g/dL (3.5-5.0); Alkaline Phosphatase 76 U/L (38-126); Anion Gap 15 mmol/L; Blood Urea Nitrogen 11 mg/dL (9-20); Calcium 9.1 mg/dL (8.4-10.2); Carbon Dioxide 25 mmol/L (22-30); Chloride 95 mmol/L (98-107); Glucose 136 mg/dL (74-99); Lipase 295 U/L (23-300); Magnesium 1.5 mg/dL (1.6-2.3); Non-African American GFR(CKD) >90 (>60 ml/min/1.73 sqM); Phosphorus 2.7 mg/dL (2.5-4.5); Potassium 3.3 mmol/L (3.5-5.1); Sodium 135 mmol/L (137-145); Total Protein 7.4 g/dL (6.3-8.2)
--- NOTE | 2021-12-16 20:35 | ED ---
Nausea/Vomiting/Diarrhea HPI - General Chief complaint: Nausea/Vomiting/Diarrhea Stated complaint: Nausea, vomiting, dehydration Time Seen by Provider: 12/16/21 20:03 Source: patient, EMS, RN notes reviewed Mode of arrival: EMS - History of Present Illness Initial comments: This is a pleasant 56-year-old male with history of multiple medical issues as listed in the past medical history. Diabetic. Patient states that for the last for 5 days he has had recurrent vomiting and diarrhea. He is describing watery vomitus. No hematemesis or coffee-ground emesis. Multiple episodes of diarrhea per day. Is also described as watery. Was admitted to the hospital in late October with similar symptomology. In fact, patient states that he has been having at least 1 episode of vomiting per day since being discharged from the hospital. Patient continues to have daily diarrhea. Patient states he was dehydrated. It looks like the patient was also treated for pneumonia. Complains of generalized abdominal pain with no alleviating or exacerbating factors. Denying any fever. Has been immunized against COVID-19. No headache, no fever or chills, no changes in vision or hearing, no sore throat or difficulty with speech, no neck pain, no chest pain or shortness of breath, URINATION is more infrequent, no numbness or tingling, no extremity pain, no ski n rashes or lesions. Patient has had no ill contacts, no recent travel, patient is a insulin- dependent diabetic. No definitive history of gastroparesis. Lives alone. Blood sugar was 130 today per patient. MD complaint: nausea, vomiting, diarrhea - Related Data Home Medications Medication Instructions Recorded Confirmed Insulin Glargine,Hum.rec.anlog 38 unit SQ BID 05/30/19 11/15/21 [Basaglar Kwikpen U-100] Linagliptin [Tradjenta] 5 mg PO DAILY 05/30/19 11/15/21 rOPINIRole HCL [Requip] 3 mg PO TID 05/30/19 11/15/21 Montelukast [Singulair] 10 mg PO HS 07/21/19 11/15/21 Famotidine [Pepcid] 20 mg PO BID 11/20/19 11/15/21 Potassium Chloride [K-Tab ER] 20 meq PO TID 02/12/20 11/15/21 levETIRAcetam [Keppra] 1,500 mg PO BID 05/03/20 11/15/21 Furosemide [Lasix] 40 mg PO BID 09/06/20 11/15/21 Atorvastatin [Lipitor] 80 mg PO HS 10/23/20 11/15/21 metFORMIN HCL [Glucophage] 1,000 mg PO BID 10/23/20 11/15/21 Metoprolol Tartrate [Lopressor] 12.5 mg PO HS 12/14/20 11/15/21 Insulin Aspart [NovoLOG Flexpen] 16 units SQ ACHS 03/04/21 11/15/21 methocarbamoL [Robaxin] 500 mg PO DAILY 03/04/21 11/15/21 Glimepiride [Amaryl] 1 mg PO BID 05/01/21 11/15/21 traZODone HCL 150 mg PO HS 05/01/21 11/15/21 Previous Rx's Medication Instructions Recorded Clopidogrel [Plavix] 75 mg PO DAILY tab 05/04/21 Pregabalin [Lyrica] 225 mg PO HS #3 cap 05/04/21 Loperamide [Imodium] 2 mg PO QID PRN cap 11/20/21 Ondansetron [Zofran] 4 mg PO Q8HR PRN #30 tab 11/20/21 Allergies Allergy/AdvReac Type Severity Reaction Status Date / Time baclofen Allergy Unknown Verified 11/15/21 16:25 cyclobenzaprine Allergy Unknown Verified 11/15/21 16:25 [From Flexeril] Review of Systems ROS Statement: Those systems with pertinent positive or pertinent negative responses have been documented in the HPI. ROS Other: All systems not noted in ROS Statement are negative. Past Medical History Past Medical History: Coronary Artery Disease (CAD), Cancer, COPD, CVA/TIA, Diabetes Mellitus, GERD/Reflux, Hyperlipidemia, Hypertension, Myocardial Infarction (MA), Osteoarthritis (OA), Seizure Disorder, Sleep Apnea/CPAP/BIPAP Additional Past Medical History / Comment(s): LAST SEIZURE 2018; lumbar radiculopathy; neuropathy; no CPAP needed per recent sleep study, hx. lung cancer, cellulitis of both lower legs 2020 Last Myocardial Infarction Date:: 10/22/10 History of Any Multi-Drug Resistant Organisms: None Reported Past Surgical History: Back Surgery, Cholecystectomy, Heart Catheterization With Stent Additional Past Surgical History / Comment(s): LAMINECTOMY ,fusion,spinal stimulator LEFT SHOULDER sx, 07-31-15 revison thoracic laminectomy t10- t11/removal of neuro stimulator and wires removed, fused L1&2 to a cage fusion that was previously put in to L3,4,5. May 27/2018. lobectomy of right middle bradly g Past Anesthesia/Blood Transfusion Reactions: No Reported Reaction Date of Last Stent Placement:: 10/22/10 Past Psychological History: Depression Smoking Status: Former smoker Past Alcohol Use History: None Reported Past Drug Use History: None Reported - Past Family History Brother(s) Family Medical History: Deep Vein Thrombosis (DVT) Mother Family Medical History: Osteoarthritis (OA) Additional Family Medical History / Comment(s): psoriases, Parkinsons Father Family Medical History: Coronary Artery Disease (CAD) Additional Family Medical History / Comment(s): heart problems- quad bypass, General Exam - General Exam Comments Initial Comments: Obese male. Appears to be somewhat ill but not toxic vital signs reviewed General appearance: alert, in distress (Mild) Head exam: Present: atraumatic, normocephalic, normal inspection Eye exam: Present: normal appearance, PERRL, EOMI. Absent: scleral icterus, conjunctival injection, periorbital swelling ENT exam: Present: mucous membranes dry, mucous membranes moist, TM's normal bilaterally, normal external ear exam. Absent: normal exam Neck exam: Present: normal inspection. Absent: tenderness, meningismus, lymphadenopathy Respiratory exam: Present: normal lung sounds bilaterally. Absent: respiratory distress, wheezes, rales, rhonchi, stridor Cardiovascular Exam: Present: normal rhythm, tachycardia, normal heart sounds. Absent: systolic murmur, diastolic murmur, rubs, gallop, clicks GI/Abdominal exam: Present: soft, tenderness (Generalized tenderness to palpation), hyperactive bowel sounds. Absent: distended, guarding, rebound, rigid Extremities exam: Present: normal inspection, full ROM, normal capillary refill. Absent: tenderness, pedal edema, joint swelling, calf tenderness Back exam: Present: normal inspection Neurological exam: Present: alert, oriented X3, CN II-XII intact Psychiatric exam: Present: normal affect, normal mood Skin exam: Present: warm, dry, intact, normal color. Absent: rash Course Vital Signs 12/16/21 12/16/2112/17/22 19:59 21:12 00:12 Temperature 99.0 F Pulse Rate 107 H 94 92 Respiratory 18 18 18 Rate Blood Pressure 118/93 126/72 124/68 O2 Sat by Pulse 98 95 95 Oximetry 12/17/21 01:43 Temperature Pulse Rate 95 Respiratory 18 Rate Blood Pressure 120/69 O2 Sat by Pulse 95 Oximetry - Reevaluation(s) Reevaluation #1: 12/16/21 21:33 Medical record is reviewed Symptoms are essentially unchanged Patient is informed of results and questions answered Patient in no distress Reevaluation #2: 12/16/21 21:34 Lactic acid is 4.8. Repeat fluid bolus ordered. Reevaluation #3: 12/16/21 22:47 Reevaluation, patient required a second dose of antiemetic. Patient symptomology certainly could be related to gastroparesis. However on trying to avoid metoclopramide due to the diarrhea. Reevaluation #4: 12/17/21 00:35 Patient still having some nausea. Phenergan ordered. Awaiting CT results. - Consultations Consultation #1: Currently awaiting callback from the admitting physician was called 3 times. Awaiting second lactic acid. Medical Decision Making - Medical Decision Making Presents with symptoms of recurrent vomiting diarrhea. Appears to have dehydration. We'll assess for hydration status and electrolyte abnormalities. Does not seem to fit the clinical picture of cardiopulmonary disease or surgical abdomen. The case was discussed in detail with ED attending physician. Presentation, findings, treatment plan discussed in detail. Patient endorsed to Dr. Stauffer For admission. Awaiting admitting physician call back. Lactic acidosis appears related to hydration status as opposed to infectious process. - Lab Data Result diagrams: 12/16/21 20:17 12/16/21 20:17 Lab Results 12/16/21 12/16/21 12/16/21 Range/Units 20:17 20:17 20:17 WBC 9.2 (3.8-10.6) k/uL RBC 4.60 (4.30-5.90) m/uL Hgb 13.1 (13.0-17.5) gm/dL Hct 39.8 (39.0-53.0) % MCV 86.5 D (80.0-100.0) fL MCH 28.4 (25.0-35.0) pg MCHC 32.9 (31.0-37.0) g/dL RDW 15.1 (11.5-15.5) % Plt Count 219 (150-450) k/uL MPV 8.0 Neutrophils % 70 % Lymphocytes % 22 % Monocytes % 5 % Eosinophils % 1 % Basophils % 0 % Neutrophils # 6.4 (1.3-7.7) k/uL Lymphocytes # 2.1 (1.0-4.8) k/uL Monocytes # 0.4 (0-1.0) k/uL Eosinophils # 0.1 (0-0.7) k/uL Basophils # 0.0 (0-0.2) k/uL Sodium 135 L (137-145) mmol/L Potassium 3.3 L (3.5-5.1) mmol/L Chloride 95 L (98-107) mmol/L Carbon Dioxide 25 (22-30) mmol/L Anion Gap 15 mmol/L BUN 11 (9-20) mg/dL Creatinine 0.55 L (0.66-1.25) mg/dL Est GFR (CKD-EPI)AfAm >90 (>60 ml/min/1.73 sqM) Est GFR (CKD-EPI)NonAf >90 (>60 ml/min/1.73 sqM) Glucose 136 H (74-99) mg/dL Lactic Ac Sepsis Rflx Plasma Lactic Acid Francois 4.8 H* (0.7-2.0) mmol/L Calcium 9.1 (8.4-10.2) mg/dL Phosphorus 2.7 (2.5-4.5) mg/dL Magnesium 1.5 L (1.6-2.3) mg/dL Total Bilirubin 1.0 (0.2-1.3) mg/dL AST 71 H (17-59) U/L ALT 63 H (4-49) U/L Alkaline Phosphatase 76 (38-126) U/L Troponin I (0.000-0.034) ng/mL Total Protein 7.4 (6.3-8.2) g/dL Albumin 4.5 (3.5-5.0) g/dL Lipase 295 (23-300) U/L Urine Color Urine Appearance (Clear) Urine pH (5.0-8.0) Ur Specific Rayle (1.001-1.035) Urine Protein (Negative) Urine Glucose (UA) (Negative) Urine Ketones (Negative) Urine Blood (Negative) Urine Nitrite (Negative) Urine Bilirubin (Negative) Urine Urobilinogen (<2.0) mg/dL Ur Leukocyte Esterase (Negative) Coronavirus (PCR) (Not Detectd) 12/16/21 12/16/21 12/16/21 Range/Units 20:17 20:17 20:42 WBC (3.8-10.6) k/uL RBC (4.30-5.90) m/uL Hgb (13.0-17.5) gm/dL Hct (39.0-53.0) % MCV (80.0-100.0) fL MCH (25.0-35.0) pg MCHC (31.0-37.0) g/dL RDW (11.5-15.5) % Plt Count (150-450) k/uL MPV Neutrophils % % Lymphocytes % % Monocytes % % Eosinophils % % Basophils % % Neutrophils # (1.3-7.7) k/uL Lymphocytes # (1.0-4.8) k/uL Monocytes # (0-1.0) k/uL Eosinophils # (0-0.7) k/uL Basophils # (0-0.2) k/uL Sodium (137-145) mmol/L Potassium (3.5-5.1) mmol/L Chloride (98-107) mmol/L Carbon Dioxide (22-30) mmol/L Anion Gap mmol/L BUN (9-20) mg/dL Creatinine (0.66-1.25) mg/dL Est GFR (CKD-EPI)AfAm (>60 ml/min/1.73 sqM) Est GFR (CKD-EPI)NonAf (>60 ml/min/1.73 sqM) Glucose (74-99) mg/dL Lactic Ac Sepsis Rflx Y Plasma Lactic Acid Francois (0.7-2.0) mmol/L Calcium (8.4-10.2) mg/dL Phosphorus (2.5-4.5) mg/dL Magnesium (1.6-2.3) mg/dL Total Bilirubin (0.2-1.3) mg/dL AST (17-59) U/L ALT (4-49) U/L Alkaline Phosphatase (38-126) U/L Troponin I <0.012 (0.000-0.034) ng/mL Total Protein (6.3-8.2) g/dL Albumin (3.5-5.0) g/dL Lipase (23-300) U/L Urine Color Urine Appearance (Clear) Urine pH (5.0-8.0) Ur Specific Rayle (1.001-1.035) Urine Protein (Negative) Urine Glucose (UA) (Negative) Urine Ketones (Negative) Urine Blood (Negative) Urine Nitrite (Negative) Urine Bilirubin (Negative) Urine Urobilinogen (<2.0) mg/dL Ur Leukocyte Esterase (Negative) Coronavirus (PCR) Not Detected (Not Detectd) 12/16/21 Range/Units 22:57 WBC (3.8-10.6) k/uL RBC (4.30-5.90) m/uL Hgb (13.0-17.5) gm/dL Hct (39.0-53.0) % MCV (80.0-100.0) fL MCH (25.0-35.0) pg MCHC (31.0-37.0) g/dL RDW (11.5-15.5) % Plt Count (150-450) k/uL MPV Neutrophils % % Lymphocytes % % Monocytes % % Eosinophils % % Basophils % % Neutrophils # (1.3-7.7) k/uL Lymphocytes # (1.0-4.8) k/uL Monocytes # (0-1.0) k/uL Eosinophils # (0-0.7) k/uL Basophils # (0-0.2) k/uL Sodium (137-145) mmol/L Potassium (3.5-5.1) mmol/L Chloride (98-107) mmol/L Carbon Dioxide (22-30) mmol/L Anion Gap mmol/L BUN (9-20) mg/dL Creatinine (0.66-1.25) mg/dL Est GFR (CKD-EPI)AfAm (>60 ml/min/1.73 sqM) Est GFR (CKD-EPI)NonAf (>60 ml/min/1.73 sqM) Glucose (74-99) mg/dL Lactic Ac Sepsis Rflx Plasma Lactic Acid Francois (0.7-2.0) mmol/L Calcium (8.4-10.2) mg/dL Phosphorus (2.5-4.5) mg/dL Magnesium (1.6-2.3) mg/dL Total Bilirubin (0.2-1.3) mg/dL AST (17-59) U/L ALT (4-49) U/L Alkaline Phosphatase (38-126) U/L Troponin I (0.000-0.034) ng/mL Total Protein (6.3-8.2) g/dL Albumin (3.5-5.0) g/dL Lipase (23-300) U/L Urine Color Yellow Urine Appearance Clear (Clear) Urine pH 7.0 (5.0-8.0) Ur Specific Rayle 1.015 (1.001-1.035) Urine Protein Trace H (Negative) Urine Glucose (UA) Negative (Negative) Urine Ketones Negative (Negative) Urine Blood Negative (Negative) Urine Nitrite Negative (Negative) Urine Bilirubin Negative (Negative) Urine Urobilinogen <2.0 (<2.0) mg/dL Ur Leukocyte Esterase Negative (Negative) Coronavirus (PCR) (Not Detectd) - EKG Data EKG Comments: EKG shows sinus rhythm with a rate of 99, indeterminate axis, normal intervals, no acute ST-T wave changes, minimal artifact. Disposition Clinical Impression: Nausea, vomiting, and diarrhea, Dehydration, Lactic acidosis, Hypokalemia Disposition: ADMITTED IP TO THIS [facility] Condition: Fair Instructions (If sedation given, give patient instructions): Acute Nausea and Vomiting (ED), Acute Diarrhea (ED) Referrals: Radha Ortiz MD [Primary Care Provider] - 1-2 days
[2021-12-16 20:39] LABS: MCV 86.5 fL (80.0-100.0)
--- NOTE | 2021-12-16 20:56 | XR ---
EXAMINATION TYPE: XR abdomen 1V DATE OF EXAM: 12/16/2021 COMPARISON: NONE HISTORY: Nausea and vomiting TECHNIQUE: 2 views upright FINDINGS: There is no sign of intestinal obstruction or pneumoperitoneum. Fecal pattern is normal. Th ere is implanted device over the left iliac bone. There is multilevel lumbar spine fusion surgery. Th ere are clips from cholecystectomy. Lung bases are clear of consolidation. IMPRESSION: Nonacute abdomen.
--- NOTE | 2021-12-16 21:19 | XR ---
EXAMINATION TYPE: XR chest 1V DATE OF EXAM: 12/16/2021 COMPARISON: 11/16/2021 HISTORY: Dehydration TECHNIQUE: Synovial FINDINGS: There is no heart failure nor confluent pneumonic infiltrate. Costophrenic angles are fairl y clear. There are chest leads. IMPRESSION: No active cardiopulmonary disease. No change.
[2021-12-16] MEDS ORDERED: ACETAMINOPHEN TAB 500 MG TAB PO STA (21:30)
[2021-12-16] MEDS ORDERED: SODIUM CHLORIDE 0.9% 500 ML 500 ML IV ONE (21:31)
[2021-12-16] MEDS ORDERED: POTASSIUM CHLORIDE ER 20 MEQ TAB.ER PO STA (21:31)
[2021-12-16] MEDS ORDERED: Magnesium Replacement Protocol 1 EACH MISC MISCELLANE PRN (21:32)
[2021-12-16] MEDS: MAGNESIUM SULFATE-D5W PMX 1 GM in DEXTROSE/WATER 1 100ML.BAG IVPB SCH ×2 (21:43→23:03)
[2021-12-16] MEDS: SODIUM CHLORIDE 0.9% 1,000 ML IV SCH (22:51)
[2021-12-16 23:09] LABS: Appearance,Urine Clear (Clear); Bilirubin,Urine Negative (Negative); Blood,Urine Negative (Negative); Color,Urine Yellow; Glucose,Urine (UA) Negative (Negative); Ketones,Urine Negative (Negative); Leukocyte Esterase,Urine Negative (Negative); Nitrite,Urine Negative (Negative); Protein,Urine Trace (Negative); Specific Gravity,Urine 1.015 (1.001-1.035); Urobilinogen,Urine <2.0 mg/dL (<2.0)
--- NOTE | 2021-12-17 00:33 | CT ---
EXAMINATION TYPE: CT abdomen pelvis w con DATE OF EXAM: 12/17/2021 COMPARISON: 11/18/2021 HISTORY: N/V/D w/ cramps x5days. seen recently for same problem CT DLP: 299.2 mGycm Automated exposure control for dose reduction was used. CONTRAST: Performed with IV Contrast, patient injected with 100 mL of Isovue 300. Images obtained from the diaphragm to the floor the pelvis with IV contrast. The lung bases are clear. There is no pleural effusion. Heart size is normal. There is no pericardial effusion. Liver spleen stomach pancreas appear intact. There are clips from cholecystectomy. The bile ducts are not dilated. There is no adrenal mass. Kidneys show satisfactory contrast opacification. There is no hydronephrosi s. Ureters are nondilated. Delayed images show normal renal excretion. There is no retroperitoneal ad enopathy. Abdominal aorta is atheromatous. The bladder distends smoothly. There is no internal hernia . There is no free fluid in the pelvis. No pelvic mass. Appendix is posterior and appears normal. There is no mesenteric edema. No ascites or free air. No evidence of a bowel obstruction. There is de vice implanted over the left anterior mid abdomen. The lumbar vertebrae have fairly normal alignment. There is a mild first-degree L5-S1 spondylolisthes is. There is multilevel posterior fusion surgery from L3 to S1. There is no significant compression d eformity. There is multilevel lumbar spondylotic changes. The bony pelvis is intact. Hip joints are intact. Sacroiliac joints are intact. IMPRESSION: No acute abnormality of the abdomen and pelvis. Atherosclerotic vascular disease. Normal appendix.
[2021-12-17] MEDS ORDERED: PROMETHAZINE 25 MG TAB PO STA (00:35)
[2021-12-17] MEDS ORDERED: NALOXONE 0.4 MG/ML 1 ML VIAL IV PRN (03:00)
[2021-12-17] MEDS ORDERED: ONDANSETRON 4 MG/2 ML VIAL IVP PRN (03:00)
[2021-12-17] MEDS: ACETAMINOPHEN TAB 325 MG TAB PO PRN ×2 (05:57→12:30)
[2021-12-17] MEDS: SODIUM CHLORIDE 0.9% 1,000 ML IV SCH ×3 (05:59→20:34)
[2021-12-17 07:00] LABS: Glucose,Whole Blood 139 mg/dL (75-99)
[2021-12-17] MEDS ORDERED: LOPERAMIDE 2 MG CAP PO PRN (08:54)
[2021-12-17] MEDS ORDERED: ONDANSETRON 4 MG TAB PO PRN (08:54)
[2021-12-17] MEDS ORDERED: CLOPIDOGREL 75 MG TAB PO SCH (09:00)
[2021-12-17] MEDS ORDERED: INSULIN DETEMIR (LEVEMIR) 100 UNIT/ML SYR SQ SCH (09:30)
[2021-12-17] MEDS: PANTOPRAZOLE 40 MG TABLET PO SCH ×2 (09:48→16:49)
[2021-12-17] MEDS: GLIMEPIRIDE 1 MG TAB PO SCH ×2 (09:48→20:45)
[2021-12-17 10:47] LABS: Glucose,Whole Blood 138 mg/dL (75-99)
--- NOTE | 2021-12-17 11:51 | P.HPIM ---
History of Present Illness H&P Date: 12/17/21 HISTORY OF PRESENT ILLNESS This is a 56-year-old morbidly obese male patient of Dr. Ortiz. Patient also follows with Dr. Parker due to chronic pain with pain pump in place. He has history of seizure disorder, CVA 3 with left-sided weakness and significant decreased mobility, history of hypertension, diabetes mellitus type II, hyperlipidemia, coronary artery disease with previous stent to the mid RCA, squamous cell lung cancer status post right middle lobe lobectomy. His most recent hospitalization was in October 2019 for intractable nausea and vomiting and diarrhea, seen by GI instructed to stop marijuana use and patient was discharged home. Patient now presents with same complaints of nausea, vomiting diarrhea which she states have been going on for 5 days. He states he has not been taking any medications for the past 4 days except for Requip and metformin. Patient presented to [facility] emergency center. Patient was afebrile, heart rate in 90s, blood pressure 126/72, pulse ox 95% on room air. CBC was unremarkable. Sodium 135, potassium 3.3, chloride 95, CO2 25, BUN 11 and creatinine 0.55. Lactic acid initially 4.8 and repeat 1.1. Magnesium 1.5 with repeat of 1.9. AST 71 and ALT 63. Troponin negative. Lipase 295. Urina lysis negative for infection. Much sugars noted to be on the low side. Patient states he has not been eating very much and his blood sugars have been running lower. His scan of the abdomen and pelvis revealed no acute abdomen mildly. Atherosclerotic vascular disease. Normal appendix. Chest x-ray reveals no acute process. Patient was Then 1 L of IV fluids, potassium replacement, Zofran IV 2, m agnesium replacement, [facility], consult with GI. REVIEW OF SYSTEMS Constitutional: No fever, no chills, no night sweats. No weight change. No weakness, fatigue or lethargy. No daytime sleepiness. EENT: No headache. No blurred vision or double vision, no loss of vision. No loss of Hearing, no ringing in the ears, no dizziness. No nasal drainage or congestion. No epistaxis. No sore throat. Lungs: No shortness of breath, cough, no sputum production. No wheezing. Cardiovascular: No chest pain, no lower extremity edema. No palpitations. No paroxysmal nocturnal dyspnea. No orthopnea. No lightheadedness or dizziness. No syncopal episodes. Abdominal: No abdominal pain. Reports nausea, Reports vomiting. Reports diarrhea. No constipation. No bloody or tarry stools.. No loss of appetite. Genitourinary: No dysuria, increased frequency, urgency. No urinary retention. Musculoskeletal: No myalgias. No muscle weakness, no gait dysfunction, no frequent falls. No back pain. No neck pain. Integumentary: No wounds, no lesions. No rash or pruritus. No unusual bruising. No change in hair or nails. Neurologic: No aphasia. Right-sided facial droop. No change in mentation. No head injury. No headache. No paralysis. No paresthesia. Psychiatric: No depression. No anxiety. No mood swings. Endocrine: No abnormal blood sugars. No weight change. No excessive sweating or thirst. No cold intolerance. SOCIAL HISTORY He quit smoking over 2 years ago 1 ppd for over 40 years. He has history of alcohol abuse but has not had a drink since 2009. Patient is and on disability. He worked as a [employer] and served in the . He does not have any children. Patient is a long-term resident at [facility] in [facility] after history of 3 CVAs and chronic left-sided weakness. He is wheelchair bound and sleeps in a recliner secondary to back pain. FAMILY HISTORY Father is at 78 with history of CVA with history of coronary artery disease status post CABG. Mother is alive at age 77 with history of Parkinson's. Patient has 4 brothers and one sister all living. No children. PHYSICAL EXAMINATION Gen: This is a 56-year-old male. He is resting in chair and appears to be comfortable at this time. HEENT: Head is atraumatic, normocephalic. Pupils equal, round. Sclerae is anicteric. NECK: Supple. No JVD. No lymphadenopathy. No thyromegaly. LUNGS: Clear to auscultation. Diminished in the bases. No wheezes or rhonchi. No intercostal retractions. HEART: Regular rate and rhythm. No murmur. ABDOMEN: Soft. Bowel sounds are present. No masses. No tenderness. EXTREMITIES: No pedal edema. No calf tenderness. NEUROLOGICAL: Patient is awake, alert and oriented 3. Cranial nerves 2 through 12 are grossly intact. ASSESSMENT AND PLAN 1. Intractable nausea vomiting and diarrhea. Patient is status post 1 L of IV fluid, consult with GI, patient started on Reglan 5 mg before meals and at bedtime, continue Protonix 40 mg twice daily, discontinue metformin. Continue Imodium 2 mg 4 times daily as needed for watery stool. 2. History of CVA 4 with residual left-sided paraplegia. Continue plavix, Lipitor. 3. History of non-small cell lung cancer status post right middle lobe lobec harjinder. 4. Chronic pain under the care of Dr. Parker. Pain pump is in place. Continue Lyrica 225 mg daily and 225 at bedtime, trazodone 150 mg at bedtime. 5. Hypertension. Hold Lasix 40 mg twice daily, continue Lopressor 12.5 mg at bedtime. 8. Hyperlipidemia. Continue atorvastatin. 9. Diabetes mellitus type 2. Continue NovoLog Before meals and at bedtime. Hold scheduled NovoLog and long-acting insulin. Continue Tradjenta 5 mg daily Amaryl 1 mg twice daily, hold metformin. 10. Diabetic neuropathy. Continue trazodone, Lyrica. 11. History of coronary artery disease status post stent in the mid RCA. Continue Lasix 75 mg daily, Lipitor 80 mg at bedtime. 12. Restless leg syndrome. Continue Requip 3 mg 3 times daily. 13. Seizure disorder. Continue Keppra 1500 mg twice daily. 14. GI prophylaxis and gastroesophageal reflux disease. Continue Tenex 40 mg twice daily, discontinue Pepcid. Patient will be admitted to the hospital for a minimum of 2 night stay. DISCHARGE PLAN Home. Impression and plan of care have been directed as dictated by the signing physician. Eleonora Almeida nurse practitioner acting as scribe for signing physician. Past Medical History Past Medical History: Coronary Artery Disease (CAD), Cancer, COPD, CVA/TIA, Diabetes Mellitus, GERD/Reflux, Hyperlipidemia, Hypertension, Myocardial Infarction (CT), Osteoarthritis (OA), Seizure Disorder, Sleep Apnea/CPAP/BIPAP Additional Past Medical History / Comment(s): LAST SEIZURE 2018; lumbar radiculopathy; neuropathy; no CPAP needed per recent sleep study, hx. lung cancer, cellulitis of both lower legs 2020 Last Myocardial Infarction Date:: 10/22/10 History of Any Multi-Drug Resistant Organisms: None Reported Past Surgical History: Back Surgery, Cholecystectomy, Heart Catheterization With Stent Additional Past Surgical History / Comment(s): LAMINECTOMY ,fusion,spinal stimulator LEFT SHOULDER sx, 07-31-15 revison thoracic laminectomy t10- t11/removal of neuro stimulator and wires removed, fused L1&2 to a cage fusion that was previously put in to L3,4,5. May 27/2018. lobectomy of right middle lung Past Anesthesia/Blood Transfusion Reactions: No Reported Reaction Date of Last Stent Placement:: 10/22/10 Past Psychological History: Depression Additional Psychological History / Comment(s): PT IS , IS ON DISABILTY, WORKED [employer] AND 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 Smoking Status: Former smoker Past Alcohol Use History: None Reported Additional Past Alcohol Use History / Comment(s): STARTED SMOKING 1977. Unable to obtain stopped smoking date. Past Drug Use History: None Reported Additional Drug Use History / Comment(s): HAS A MEDICAL MARIJUANA CARD-no current use. - Past Family History Brother(s) Family Medical History: Deep Vein Thrombosis (DVT) Mother Family Medical History: Osteoarthritis (OA) Additional Family Medical History / Comment(s): psoriases, Parkinsons Father Family Medical History: Coronary Artery Disease (CAD) Additional Family Medical History / Comment(s): heart problems- quad bypass, Medications and Allergies Home Medications Medication Instructions Recorded Confirmed Type Insulin Glargine,Hum.rec.anlog 38 unit SQ BID 05/30/19 12/17/21 History [Basaglar Jo U-100] Linagliptin [Tradjenta] 5 mg PO DAILY 05/30/19 12/17/21 History rOPINIRole HCL [Requip] 3 mg PO TID 05/30/19 12/17/21 History Montelukast [Singulair] 10 mg PO HS 07/21/19 12/17/21 History Famotidine [Pepcid] 20 mg PO BID 11/20/19 12/17/21 History Potassium Chloride [K-Tab ER] 20 meq PO TID 02/12/20 12/17/21 History levETIRAcetam [Keppra] 1,500 mg PO BID 05/03/20 12/17/21 History Furosemide [Lasix] 40 mg PO BID 09/06/20 12/17/21 History Atorvastatin [Lipitor] 80 mg PO HS 10/23/20 12/17/21 History metFORMIN HCL [Glucophage] 1,000 mg PO BID 10/23/20 12/17/21 History Metoprolol Tartrate [Lopressor] 12.5 mg PO HS 12/14/20 12/17/21 History Insulin Aspart [NovoLOG Flexpen] 16 units SQ ACHS 03/04/21 12/17/21 History methocarbamoL [Robaxin] 500 mg PO DAILY 03/04/21 12/17/21 History Glimepiride [Amaryl] 1 mg PO BID 05/01/21 12/17/21 History traZODone HCL 150 mg PO HS 05/01/21 12/17/21 History Clopidogrel [Plavix] 75 mg PO DAILY tab 05/04/21 12/17/21 Rx Pregabalin [Lyrica] 225 mg PO HS #3 cap 05/04/21 12/17/21 Rx Loperamide [Imodium] 2 mg PO QID PRN cap 11/20/21 12/17/21 Rx Ondansetron [Zofran] 4 mg PO Q8HR PRN #30 tab 11/20/21 12/17/21 Rx Allergies Allergy/AdvReac Type Severity Reaction Status Date / Time baclofen Allergy Unknown - Verified 12/17/21 07:38 Patient denies cyclobenzaprine Allergy Unknown - Verified 12/17/21 07:38 [From Flexeril] Patient denies Physical Exam Vitals: Vital Signs Temp Pulse Pulse Resp BP BP Pulse Ox 12/17/21 07:28 98.4 F 84 16 134/78 95 12/17/21 06:19 98.5 F 107 H 18 151/82 96 12/17/21 05:00 92 18 142/87 95 12/17/21 03:12 96 18 144/84 96 12/17/21 01:43 95 18 120/69 95 12/17/21 00:12 92 18 124/68 95 12/16/21 21:12 94 18 126/72 95 12/16/21 19:59 99.0 F 107 H 18 118/93 98 Intake and Output 12/16/21 12/17/21 12/17/21 22:59 06:59 14:59 Other: # Voids 1 Weight 136.078 kg 136.078 kg Results CBC & Chem 7: 12/16/21 20:17 12/16/21 20:17 Labs: Abnormal Lab Results - Last 24 Hours (Table) 12/16/21 12/16/21 12/16/21 Range/Units 20:17 20:17 22:57 Sodium 135 L (137-145) mmol/L Potassium 3.3 L (3.5-5.1) mmol/L Chloride 95 L (98-107) mmol/L Creatinine 0.55 L (0.66-1.25) mg/dL Glucose 136 H (74-99) mg/dL POC Glucose (mg/dL) (75-99) mg/dL Plasma Lactic Acid Francois 4.8 H* (0.7-2.0) mmol/L Magnesium 1.5 L (1.6-2.3) mg/dL AST 71 H (17-59) U/L ALT 63 H (4-49) U/L Urine Protein Trace H (Negative) 12/17/21 Range/Units 06:54 Sodium (137-145) mmol/L Potassium (3.5-5.1) mmol/L Chloride (98-107) mmol/L Creatinine (0.66-1.25) mg/dL Glucose (74-99) mg/dL POC Glucose (mg/dL) 139 H (75-99) mg/dL Plasma Lactic Acid Francois (0.7-2.0) mmol/L Magnesium (1.6-2.3) mg/dL AST (17-59) U/L ALT (4-49) U/L Urine Protein (Negative) Thrombosis Risk Factor Assmnt - Choose All That Apply Each Factor Represents 1 point: Abnormal pulmonary function (COPD), Acute CT, Age 41-60 years, Obesity (BMI >25) Each Risk Factor Represents 3 Points: Family history of DVT/PE Thrombosis Risk Factor Assessment Total Risk Factor Score: 7 Thrombosis Risk Factor Assessment Level: High Risk
[2021-12-17] MEDS: LINAGLIPTIN 5 MG TABLET PO SCH (12:02)
[2021-12-17] MEDS: ONDANSETRON 4 MG/2 ML VIAL IVP PRN ×2 (12:23→17:26)
[2021-12-17] MEDS: INSULIN ASPART (NovoLOG) 100 UNIT/ML VIAL SQ SCH ×3 (12:28→20:19)
[2021-12-17] MEDS ORDERED: INSULIN ASPART (NovoLOG) 100 UNIT/ML VIAL SQ SCH (12:30)
[2021-12-17] MEDS: METOCLOPRAMIDE 5 MG TAB PO SCH ×3 (12:30→20:35)
--- NOTE | 2021-12-17 16:39 | P.CONS ---
History of Present Illness - Reason for Consult Consult date: 12/17/21 Nausea and vomiting Requesting physician: Cal Handy - Chief Complaint Nausea and vomiting - History of Present Illness This is a 56-year-old morbidly obese patient with multiple comorbidities including chronic pain with pain pump, seizure disorders, CVA with residual lef t-sided weakness and decreased mobility, hypertension, diabetes, hyperlipidemia and coronary artery disease status post stenting as well as lung cancer status post lobectomy. The patient presented to the emergency department with complaints of nausea vomiting that started 4 days ago. He states he is vomiting multiple times and becomes nauseated after eating. He also states he had some diarrhea but he has not had any in 1-2 days. He was recently admitted for the same symptoms which subsided after some time in the hospital with antibiotics. At that time he did have stool studies done that were negative. He has no prior history of EGD, last colonoscopy was approximately 7 years ago which she states was normal. He denies any previous history of ulcers. He has diabetic as well as regular marijuana use smoking and a majority of ingesting edibles. It was discussed during his last visit recommendation of abstinence of any cannabinoid products as it can cause cannabinoid hyperemesis. He is denying any abdominal pain, states he still has some nausea but has not been taking in much fluids at this time so he has not had any further vomiting today. Denied any blood in his emesis or coffee-ground emesis. Review of Systems REVIEW OF SYSTEMS: CARDIOPULMONARY: No chest pain or shortness of breath. Gastrointestinal: No abdominal pain. Nausea and vomiting, nonbilious nonbloody. No rectal bleeding, or melena. GENITOURINARY: No dysuria or hematuria. MUSCULOSKELETAL: Reports normal range of motion., Joint pain. SKIN: No rashes. No jaundice. ENDOCRINE: No chills, fevers. No excessive weight gain or loss. No polydipsia or polyuria. PSYCHIATRIC: Unremarkable. NEUROLOGY: No change in mental status. Denies dizziness, headache. ENT: Vision unremarkable. CONSTITUTIONAL: No recent weight loss. No fever, chills, night sweats. Past Medical History Past Medical History: Coronary Artery Disease (CAD), Cancer, COPD, CVA/TIA, Diabetes Mellitus, GERD/Reflux, Hyperlipidemia, Hypertension, Myocardial Infarction (UT), Osteoarthritis (OA), Seizure Disorder, Sleep Apnea/CPAP/BIPAP Additional Past Medical History / Comment(s): LAST SEIZURE 2018; lumbar radiculopathy; neuropathy; no CPAP needed per recent sleep study, hx. lung cancer, cellulitis of both lower legs 2020 Last Myocardial Infarction Date:: 10/22/10 History of Any Multi-Drug Resistant Organisms: None Reported Past Surgical History: Back Surgery, Cholecystectomy, Heart Catheterization With Stent Additional Past Surgical History / Comment(s): LAMINECTOMY ,fusion,spinal stimulator LEFT SHOULDER sx, 07-31-15 revison thoracic laminectomy t10- t11/removal of neuro stimulator and wires removed, fused L1&2 to a cage fusion that was previously put in to L3,4,5. May 27/2018. 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 Smoking Status: Former smoker Past Alcohol Use History: None Reported Additional Past Alcohol Use History / Comment(s): STARTED SMOKING 1977. Unable to obtain stopped smoking date. Past Drug Use History: None Reported Additional Drug Use History / Comment(s): HAS A MEDICAL MARIJUANA CARD-no current use. - Past Family History Brother(s) Family Medical History: Deep Vein Thrombosis (DVT) Mother Family Medical History: Osteoarthritis (OA) Additional Family Medical History / Comment(s): psoriases, Parkinsons Father Family Medical History: Coronary Artery Disease (CAD) Additional Family Medical History / Comment(s): heart problems- quad bypass, Medications and Allergies Home Medications Medication Instructions Recorded Confirmed Type Insulin Glargine,Hum.rec.anlog 38 unit SQ BID 05/30/19 12/17/21 History [Basaglar Kwikpen U-100] Linagliptin [Tradjenta] 5 mg PO DAILY 05/30/19 12/17/21 History rOPINIRole HCL [Requip] 3 mg PO TID 05/30/19 12/17/21 History Montelukast [Singulair] 10 mg PO HS 07/21/19 12/17/21 History Famotidine [Pepcid] 20 mg PO BID 11/20/19 12/17/21 History Potassium Chloride [K-Tab ER] 20 meq PO TID 02/12/20 12/17/21 History levETIRAcetam [Keppra] 1,500 mg PO BID 05/03/20 12/17/21 History Furosemide [Lasix] 40 mg PO BID 09/06/20 12/17/21 History Atorvastatin [Lipitor] 80 mg PO HS 10/23/20 12/17/21 History metFORMIN HCL [Glucophage] 1,000 mg PO BID 10/23/20 12/17/21 History Metoprolol Tartrate [Lopressor] 12.5 mg PO HS 12/14/20 12/17/21 History Insulin Aspart [NovoLOG Flexpen] 16 units SQ ACHS 03/04/21 12/17/21 History methocarbamoL [Robaxin] 500 mg PO DAILY 03/04/21 12/17/21 History Glimepiride [Amaryl] 1 mg PO BID 05/01/21 12/17/21 History traZODone HCL 150 mg PO HS 05/01/21 12/17/21 History Clopidogrel [Plavix] 75 mg PO DAILY tab 05/04/21 12/17/21 Rx Pregabalin [Lyrica] 225 mg PO HS #3 cap 05/04/21 12/17/21 Rx Loperamide [Imodium] 2 mg PO QID PRN cap 11/20/21 12/17/21 Rx Ondansetron [Zofran] 4 mg PO Q8HR PRN #30 tab 11/20/21 12/17/21 Rx Allergies Allergy/AdvReac Type Severity Reaction Status Date / Time baclofen Allergy Unknown - Verified 12/17/21 07:38 Patient denies cyclobenzaprine Allergy Unknown - Verified 12/17/21 07:38 [From Flexeril] Patient denies Physical Exam Vitals: Vital Signs Temp Pulse Pulse Resp BP BP Pulse Ox 12/17/21 07:28 98.4 F 84 16 134/78 95 12/17/21 06:19 98.5 F 107 H 18 151/82 96 12/17/21 05:00 92 18 142/87 95 12/17/21 03:12 96 18 144/84 96 12/17/21 01:43 95 18 120/69 95 12/17/21 00:12 92 18 124/68 95 12/16/21 21:12 94 18 126/72 95 12/16/21 19:59 99.0 F 107 H 18 118/93 98 Intake and Output 12/16/21 12/17/21 12/17/21 22:59 06:59 14:59 Other: # Voids 1 Weight 136.078 kg 136.078 kg General appearance: The patient is alert, oriented, appears in no acute distress. Morbidly obese. HET: Head is normocephalic and atraumatic. Conjunctiva pink. Sclera anicteric. Neck: Supple without lymphadenopathy. Trachea midline. Heart: S1 S2. Regular rate and rhythm. Lungs: Clear to auscultation. Abdomen: Soft, morbidly obese, mild tenderness in the epigastric region, nondistended with bowel sounds. No guarding or rigidity. Skin: No rashes. No jaundice. Extremities: Normal skin color and turgor. No pedal edema. Neurological: No focal deficits. Alert and oriented x3. Results CBC & Chem 7: 12/16/21 20:17 12/16/21 20:17 Labs: Abnormal Lab Results - Last 24 Hours (Table) 12/16/21 12/16/21 12/16/21 Range/Units 20:17 20:17 22:57 Sodium 135 L (137-145) mmol/L Potassium 3.3 L (3.5-5.1) mmol/L Chloride 95 L (98-107) mmol/L Creatinine 0.55 L (0.66-1.25) mg/dL Glucose 136 H (74-99) mg/dL POC Glucose (mg/dL) (75-99) mg/dL Plasma Lactic Acid Francois 4.8 H* (0.7-2.0) mmol/L Magnesium 1.5 L (1.6-2.3) mg/dL AST 71 H (17-59) U/L ALT 63 H (4-49) U/L Urine Protein Trace H (Negative) 12/17/21 Range/Units 06:54 Sodium (137-145) mmol/L Potassium (3.5-5.1) mmol/L Chloride (98-107) mmol/L Creatinine (0.66-1.25) mg/dL Glucose (74-99) mg/dL POC Glucose (mg/dL) 139 H (75-99) mg/dL Plasma Lactic Acid Francois (0.7-2.0) mmol/L Magnesium (1.6-2.3) mg/dL AST (17-59) U/L ALT (4-49) U/L Urine Protein (Negative) Assessment and Plan (1) Nausea and vomiting Narrative/Plan: 56-year-old female with frequent hospitalizations for nausea and vomiting returned again with a 4 day duration of nausea with vomiting. He denies any abdominal pain associated with it other than when he is vomiting and states he has muscular pain. He denies any coffee-ground or bright red blood. No previous history of peptic ulcer disease or EGD. Last colonoscopy about 7 years ago which he states is normal. He is a previous history of alcohol abuse, he currently still is a daily cannabinoid user. He states mostly now edibles. He has been seen in the past for similar complaints of nausea vomiting and was told for cannabinoid abstinence. Unclear etiology of nausea and vomiting could be related to cannabinoid hyperemesis, however need to consider gastroparesis in the light of underlying diabetes and possible medication induced. Medicine team discontinued metformin at this time. Will proceed with EGD tomorrow for further evaluation. Hold Plavix. Current Visit: No Status: Acute Code(s): R11.2 - NAUSEA WITH VOMITING, UNSPECIFIED SNOMED Code(s): 60719278 (2) Diabetes mellitus Current Visit: Yes Status: Acute Code(s): E11.9 - TYPE 2 DIABETES MELLITUS WITHOUT COMPLICATIONS SNOMED Code(s): 12627935 Plan: 1. Continue symptomatic and supportive care 2. Continue antiemetics 3. Protonix 40 mg twice a day 4. Clear liquid diet, advance as tolerated 5. Hold Plavix 6. Will plan on EGD on Wednesday 7. Cannabinoid abstinence Thank you for this consultation, we will continue to follow Dr. Joe Watt I agree with the dictator's note, documented as a scribe by Beatriz Cedillo.
[2021-12-17 16:48] LABS: Glucose,Whole Blood 116 mg/dL (75-99)
[2021-12-17 20:04] LABS: Glucose,Whole Blood 150 mg/dL (75-99)
[2021-12-17] MEDS: MONTELUKAST 10 MG TAB PO SCH (20:34)
[2021-12-17] MEDS: Acetaminophen-Codeine 300-30mg TAB PO PRN (20:34)
[2021-12-17] MEDS: PREGABALIN 75 MG CAP PO SCH (20:35)
[2021-12-17] MEDS: traZODone HCL 50 MG TAB PO SCH (20:35)
[2021-12-17] MEDS: METOPROLOL TARTRATE 12.5 MG TAB PO SCH (20:35)
[2021-12-17] MEDS: ATORVASTATIN 80 MG TAB PO SCH (20:35)
[2021-12-18] MEDS: SODIUM CHLORIDE 0.9% 1,000 ML IV SCH ×3 (06:24→23:22)
[2021-12-18] MEDS: INSULIN ASPART (NovoLOG) 100 UNIT/ML VIAL SQ SCH ×4 (07:05→21:00)
[2021-12-18 07:07] LABS: Glucose,Whole Blood 165 mg/dL (75-99)
[2021-12-18] MEDS: LINAGLIPTIN 5 MG TABLET PO SCH (07:07)
[2021-12-18] MEDS: PANTOPRAZOLE 40 MG TABLET PO SCH ×2 (07:07→16:29)
[2021-12-18] MEDS: Acetaminophen-Codeine 300-30mg TAB PO PRN ×3 (07:07→20:59)
[2021-12-18] MEDS: GLIMEPIRIDE 1 MG TAB PO SCH ×2 (07:08→20:02)
[2021-12-18] MEDS: METOCLOPRAMIDE 5 MG TAB PO SCH ×4 (07:08→20:01)
[2021-12-18] MEDS: LORATADINE 10 MG TAB PO SCH (09:00)
[2021-12-18 09:11] LABS: Basophils # (A) 0.03 X 10*3/uL (0.00-0.10); Basophils % (A) 0.4 %; Eosinophils # (A) 0.13 X 10*3/uL (0.04-0.35); Eosinophils % (A) 1.5 %; HCT 37.5 % (39.6-50.0); HGB 11.5 g/dL (13.0-17.0); Immature Grans, Automated 0.4 %; Lymphocytes # (A) 2.17 X 10*3/uL (0.90-5.00); Lymphocytes % (A) 25.8 %; MCH 27.6 pg (27.0-32.0); MCHC 30.7 g/dL (32.0-37.0); MCV 89.9 fL (80.0-97.0); Mean Platelet Volume 10.5 fL (9.5-12.2); Monocytes # (A) 0.59 X 10*3/uL (0.20-1.00); NRBC Per 100 WBC 0 /100 WBCS (0.0-0.0); Neutrophils # (A) 5.46 X 10*3/uL (1.80-7.70); Neutrophils % (A) 64.9 %; Platelet Count 191 X 10*3/uL (140-440); RBC 4.17 X 10*6/uL (4.40-5.60); RDW 14.6 % (11.5-14.5); WBC 8.41 X 10*3/uL (4.50-10.00)
[2021-12-18 09:21] LABS: African American GFR (CKD) 124.9 (60.0-200.0); Albumin 4.2 g/dL (3.8-4.9); Albumin/Globulin Ratio 2.03 (1.60-3.17); Anion Gap 14.2 mmol/L (10.00-18.00); BUN/Creat Ratio 7.58 Ratio (12.00-20.00); Calcium 9.1 mg/dL (8.7-10.3); Carbon Dioxide 27.9 mmol/L (20.0-27.5); Globulin 2.1 g/dL (1.6-3.3); Non-African American GFR(CKD) 107.8 (60.0-200.0); Phosphorus 4.2 mg/dL (2.4-5.1); Total Bilirubin 0.7 mg/dL (0.30-1.20); Total Protein 6.3 g/dL (6.2-8.2)
[2021-12-18] MEDS: FLUTICASONE 50MCG/SPRAY NASAL 16GM EA NOSTRIL SCH (09:43)
--- NOTE | 2021-12-18 09:58 | P.PN ---
Subjective Progress Note Date: 12/18/21 HISTORY OF PRESENT ILLNESS This is a 56-year-old morbidly obese male patient of Dr. Ortiz. Patient also follows with Dr. Parker due to chronic pain with pain pump in place. He has history of seizure disorder, CVA 3 with left-sided weakness and significant decreased mobility, history of hypertension, diabetes mellitus type II, hyperlipidemia, coronary artery disease with previous stent to the mid RCA, squamous cell lung cancer status post right middle lobe lobectomy. His most recent hospitalization was in October 2019 for intractable nausea and vomiting and diarrhea, seen by GI instructed to stop marijuana use and patient was discharged home. Patient now presents with same complaints of nausea, vomiting diarrhea which she states have been going on for 5 days. He states he has not been taking any medications for the past 4 days except for Requip and metformin. Patient presented to [facility] emergency center. Patient was afebrile, heart rate in 90s, blood pressure 126/72, pulse ox 95% on room air. CBC was unremarkable. Sodium 135, potassium 3.3, chloride 95, CO2 25, BUN 11 and creatinine 0.55. Lactic acid initially 4.8 and repeat 1.1. Magnesium 1.5 with repeat of 1.9. AST 71 and ALT 63. Troponin negative. Lipase 295. Urinalysis negative for infection. Much sugars noted to be on the low side. Patient states he has not been eating very much and his blood sugars have been running lower. His scan of the abdomen and pelvis revealed no acute abdomen mildly. Atherosclerotic vascular disease. Normal appendix. Chest x-ray reveals no acute process. Patient was Then 1 L of IV fluids, potassium replacement, Zofran IV 2, magnesi um replacement, [facility] with [facility]. 12/18: The patient continues to have nausea but no vomiting and no diarrhea. Stool specimen has not been obtained. Patient has been seen by GI and scheduled for EGD for tomorrow. Patient concerned that sinus problems and ALLERGY co ntributing to his nausea. He has had significant problems over the years and recommended follow-up with Dr. Enriquez as an outpatient. Anticipate probable discharge home tomorrow after EGD study. REVIEW OF SYSTEMS Constitutional: No fever, no chills, no night sweats. No weight change. No weakness, fatigue or lethargy. No daytime sleepiness. EENT: No headache. No blurred vision or double vision, no loss of vision. No loss of Hearing, no ringing in the ears, no dizziness. No nasal drainage or congestion. No epistaxis. No sore throat. Lungs: No shortness of breath, cough, no sputum production. No wheezing. Cardiovascular: No chest pain, no lower extremity edema. No palpitations. No paroxysmal nocturnal dyspnea. No orthopnea. No lightheadedness or dizziness. No syncopal episodes. Abdominal: No abdominal pain. Reports nausea, resolved vomiting. Reports diarrhea. No constipation. No bloody or tarry stools.. No loss of appetite. Genitourinary: No dysuria, increased frequency, urgency. No urinary retention. Musculoskeletal: No myalgias. No muscle weakness, no gait dysfunction, no frequent falls. No back pain. No neck pain. Integumentary: No wounds, no lesions. No rash or pruritus. No unusual bruising. No change in hair or nails. Neurologic: No aphasia. Right-sided facial droop. No change in mentation. No head injury. No headache. No paralysis. No paresthesia. Psychiatric: No depression. No anxiety. No mood swings. Endocrine: No abnormal blood sugars. No weight change. No excessive sweating or thirst. No cold intolerance. PHYSICAL EXAMINATION Gen: This is a 56-year-old male. He is resting in chair and appears to be comfortable at this time. HEENT: Head is atraumatic, normocephalic. Pupils equal, round. Sclerae is anicteric. NECK: Supple. No JVD. No lymphadenopathy. No thyromegaly. LUNGS: Clear to auscultation. Diminished in the bases. No wheezes or rhonchi. No intercostal retractions. HEART: Regular rate and rhythm. No murmur. ABDOMEN: Soft. Bowel sounds are present. No masses. No tenderness. EXTREMITIES: No pedal edema. No calf tenderness. Dorsalis pedis palpable bilaterally. NEUROLOGICAL: Patient is awake, alert and oriented 3. Cranial nerves 2 through 12 are grossly intact. ASSESSMENT AND PLAN 1. Intractable nausea vomiting and diarrhea. Consult with GI appreciated, continue patient on Reglan 5 mg before meals and at bedtime, continue Protonix 40 mg twice daily, discontinue metformin. Continue Imodium 2 mg 4 times daily as needed for watery stool. Diarrhea has resolved. Patient is scheduled for EGD tomorrow. 2. History of CVA 4 with residual left-sided paraplegia. Continue plavix, Lipitor. 3. History of non-small cell lung cancer status post right middle lobe lobectomy. 4. Chronic pain under the care of Dr. Parker. Pain pump is in place. Continue Lyrica 225 mg daily and 225 at bedtime, trazodone 150 mg at bedtime. 5. Hypertension. Hold Lasix 40 mg twice daily, continue Lopressor 12.5 mg at bedtime. 8. Hyperlipidemia. Continue atorvastatin. 9. Diabetes mellitus type 2. Continue NovoLog Before meals and at bedtime. Hold scheduled NovoLog and long-acting insulin. Continue Tradjenta 5 mg daily Amaryl 1 mg twice daily, hold metformin. 10. Diabetic neuropathy. Continue trazodone, Lyrica. 11. History of coronary artery disease status post stent in the mid RCA. Continue Lasix 75 mg daily, Lipitor 80 mg at bedtime. 12. Restless leg syndrome. Continue Requip 3 mg 3 times daily. 13. Seizure disorder. Continue Keppra 1500 mg twice daily. 14. GI prophylaxis and gastroesophageal reflux disease. Continue Tenex 40 mg twice daily, discontinue Pepcid. DISCHARGE PLAN Home. Impression and plan of care have been directed as dictated by the signing physician. Eleonora Almeida nurse practitioner acting as scribe for signing physician. Objective - Vital Signs Vital signs: Vital Signs Temp 98.7 F 12/18/21 01:06 Pulse 82 12/18/21 01:06 Resp 17 12/18/21 01:06 BP 115/73 12/18/21 01:06 Pulse Ox 95 12/18/21 01:06 Intake & Output 12/17/21 12/18/21 12/18/21 18:59 06:59 18:59 Other: Voiding Method Toilet # Voids 2 3 - Labs CBC & Chem 7: 12/18/21 04:20 12/18/21 04:20 Labs: Abnormal Lab Results - Last 24 Hours (Table) 12/17/21 12/17/21 12/17/21 Range/Units 10:45 16:36 20:02 POC Glucose (mg/dL) 138 H 116 H 150 H (75-99) mg/dL 12/18/21 Range/Units 07:05 POC Glucose (mg/dL) 165 H (75-99) mg/dL
[2021-12-18] MEDS: ONDANSETRON 4 MG/2 ML VIAL IVP PRN ×2 (11:02→21:06)
[2021-12-18 11:18] LABS: Glucose,Whole Blood 156 mg/dL (75-99)
[2021-12-18 15:37] LABS: Glucose,Whole Blood 163 mg/dL (75-99)
[2021-12-18] MEDS ORDERED: LIDOCAINE 1% (10MG/ML) FOR IV START INTRADERMA PRN (16:13)
[2021-12-18] MEDS: LACTATED RINGERS 1,000 ML IV SCH (16:25)
[2021-12-18] MEDS: MONTELUKAST 10 MG TAB PO SCH (20:01)
[2021-12-18] MEDS: METOPROLOL TARTRATE 12.5 MG TAB PO SCH (20:01)
[2021-12-18] MEDS: ATORVASTATIN 80 MG TAB PO SCH (20:01)
[2021-12-18] MEDS: traZODone HCL 50 MG TAB PO SCH (20:01)
[2021-12-18] MEDS: PREGABALIN 75 MG CAP PO SCH (20:01)
[2021-12-18 20:31] LABS: Glucose,Whole Blood 189 mg/dL (75-99)
[2021-12-19 02:43] LABS: Glucose,Whole Blood 240 mg/dL (75-99)
[2021-12-19 02:52] LABS: Glucose,Whole Blood 223 mg/dL (75-99)
[2021-12-19] MEDS: Acetaminophen-Codeine 300-30mg TAB PO PRN (04:13)
[2021-12-19] MEDS: SODIUM CHLORIDE 0.9% 1,000 ML IV SCH ×3 (05:03→09:55)
[2021-12-19] MEDS: ONDANSETRON 4 MG/2 ML VIAL IVP PRN ×3 (05:37→18:08)
[2021-12-19] MEDS ORDERED: PROPOFOL 10 MG/ML 20 ML VIAL IV ONE (06:43)
[2021-12-19] MEDS ORDERED: LIDOCAINE 1% INJ 10MG/ML (20 ML MDV) ONE (06:43)
[2021-12-19] MEDS ORDERED: IV FLUID CONTINUATION 800 ML IV ONE (06:45)
--- NOTE | 2021-12-19 07:01 | P.PN ---
Subjective Progress Note Date: 12/18/21 Principal diagnosis: nausea and vomiting Patient is seen and examined as a follow up for nausea and vomiting. He states he has not had any further vomiting. He has tolerated a clear liquid diet. He denies any abdominal pain. He's afebrile. Plan is for EGD tomorrow. No further diarrhea. Objective - Vital Signs Vital signs: Vital Signs Temp 98.7 F 12/18/21 01:06 Pulse 82 12/18/21 01:06 Resp 17 12/18/21 01:06 BP 115/73 12/18/21 01:06 Pulse Ox 95 12/18/21 01:06 Intake & Output 12/17/21 12/18/21 12/18/21 18:59 06:59 18:59 Other: Voiding Method Toilet # Voids 2 3 - Exam General appearance: The patient is alert, oriented, appears in no acute distress. Obese. HET: Head is normocephalic and atraumatic. Conjunctiva pink. Sclera anicteric. Neck: Supple without lymphadenopathy. Abdomen: Soft, obese, nontender, nondistended with bowel sounds. No guarding or rigidity. Extremities: Normal skin color and turgor. No pedal edema Skin: No rashes, no jaundice Neurological: No focal deficits. Alert and oriented -3. - Labs CBC & Chem 7: 12/18/21 04:20 12/18/21 04:20 Labs: Abnormal Lab Results - Last 24 Hours (Table) 12/17/21 12/17/21 12/17/21 Range/Units 10:45 16:36 20:02 POC Glucose (mg/dL) 138 H 116 H 150 H (75-99) mg/dL 12/18/21 Range/Units 07:05 POC Glucose (mg/dL) 165 H (75-99) mg/dL Assessment and Plan (1) Nausea and vomiting Narrative/Plan: 56-year-old female with frequent hospitalizations for nausea and vomiting returned again with a 4 day duration of nausea with vomiting. He denies any abdominal pain associated with it other than when he is vomiting and states he has muscular pain. He denies any coffee-ground or bright red blood. No previo us history of peptic ulcer disease or EGD. Last colonoscopy about 7 years ago which he states is normal. He is a previous history of alcohol abuse, he currently still is a daily cannabinoid user. He states mostly now edibles. He has been seen in the past for similar complaints of nausea vomiting and was told for cannabinoid abstinence. Unclear etiology of nausea and vomiting could be related to cannabinoid hyperemesis, however need to consider gastroparesis in the light of underlying diabetes and possible medication induced. Medicine team discontinued metformin at this time. Will proceed with EGD tomorrow for further evaluation. Hold Plavix. Current Visit: No Status: Acute Code(s): R11.2 - NAUSEA WITH VOMITING, UNSPECIFIED SNOMED Code(s): 52947477 (2) Diabetes mellitus Current Visit: Yes Status: Acute Code(s): E11.9 - TYPE 2 DIABETES MELLITUS WITHOUT COMPLICATIONS SNOMED Code(s): 68959235 Plan: 1. Continue symptomatic and supportive care 2. Continue antiemetics 3. Protonix 40 mg twice a day 4. Advance to consistent carbohydrate diet, NPO after midnight 5. Hold Plavix 6. Will plan on EGD tomorrow 7. Cannabinoid abstinence Thank you for this consultation, we will continue to follow Dr. Joe Watt I agree with the dictator's note, documented as a scribe by Beatriz Cedillo.
--- NOTE | 2021-12-19 07:01 | P.PCN ---
Date of Procedure: 12/19/21 Procedure(s) Performed: BRIEF HISTORY: Patient is a 56-year-old, pleasant, white male scheduled for an upper endoscopy as a part of evaluation of intermittent episodes of abdominal pain associated with nausea vomiting for the last few months duration. PROCEDURE PERFORMED: Esophagogastroduodenoscopy with biopsy. PREOPERATIVE DIAGNOSIS: Intermittent episodes of epigastric pain associated with nausea vomiting a few months duration. IV sedation per anesthesia. PROCEDURE: After informed consent was obtained, the patient was brought into the endoscopy unit. IV sedation was administered by Anesthesia under continuous monitoring. Initially the Olympus GIF-140 video endoscope was inserted into the mouth. Esophagus intubated without any difficulty. It was gradually advanced into the stomach and duodenum and carefully examined. The bulb scattered erosions consistent with mild duodenitis and the second part of the duodenum appeared normal. The scope at this time was withdrawn to the stomach, adequately insufflated with air, and upon careful examination, mucosa of the antrum, had erosions and a 5 mm polyp that was biopsied. Mucosa of the body, cardia and the fundus appeared normal. The scope was then withdrawn into the esophagus. The GE junction was located at 39 cm from the incisors. The esophagus appeared normal. There were no erosions or ulcerations seen and the patient tolerated the procedure well. IMPRESSION: 1. Mild duodenitis. 2. Mild antral erosive gastritis. 3. Small gastric polyps status post biopsy RECOMMENDATIONS: The findings of this examination were discussed with the patient as his family. He was advised to follow with the biopsy results. He will continue with Protonix 40 mg daily and continue to follow antireflux measures..
[2021-12-19 07:20] LABS: Glucose,Whole Blood 151 mg/dL (75-99)
[2021-12-19] MEDS: PANTOPRAZOLE 40 MG TABLET PO SCH ×3 (07:34→07:52)
[2021-12-19] MEDS: FLUTICASONE 50MCG/SPRAY NASAL 16GM EA NOSTRIL SCH (07:34)
[2021-12-19] MEDS: INSULIN ASPART (NovoLOG) 100 UNIT/ML VIAL SQ SCH ×4 (07:34→22:14)
[2021-12-19] MEDS: LINAGLIPTIN 5 MG TABLET PO SCH (07:42)
[2021-12-19] MEDS: GLIMEPIRIDE 1 MG TAB PO SCH ×2 (07:42→22:15)
[2021-12-19] MEDS: METOCLOPRAMIDE 5 MG TAB PO SCH ×4 (07:42→22:15)
[2021-12-19] MEDS: LORATADINE 10 MG TAB PO SCH (07:42)
[2021-12-19] MEDS: LACTATED RINGERS 1,000 ML IV SCH (09:54)
[2021-12-19 11:18] LABS: Glucose,Whole Blood 175 mg/dL (75-99)
--- NOTE | 2021-12-19 12:38 | P.DS ---
Providers Date of admission: 12/17/21 11:50 Expected date of discharge: 12/20/21 Attending physician: Cal Handy Consults: 12/17/21 08:57 Consult Physician Routine Consulting Provider: Trisha Watt Consult Reason/Comments: intractable N/V/D Do you want consulting provider notified?: Yes Primary care physician: Radha Ortiz [facility] Course: HISTORY OF PRESENT ILLNESS This is a 56-year-old morbidly obese male patient of Dr. Ortiz. Patient also follows with Dr. Parker due to chronic pain with pain pump in place. He has history of seizure disorder, CVA 3 with left-sided weakness and significant decreased mobility, history of hypertension, diabetes mellitus type II, hyperlipidemia, coronary artery disease with previous stent to the mid RCA, sq uamous cell lung cancer status post right middle lobe lobectomy. His most recent hospitalization was in October 2019 for intractable nausea and vomiting and diarrhea, seen by GI instructed to stop marijuana use and patient was discharged home. Patient now presents with same complaints of nausea, vomiting diarrhea which she states have been going on for 5 days. He states he has not been taking any medications for the past 4 days except for Requip and metformin. Patient presented to [facility] emergency center. Patient was afebrile, heart rate in 90s, blood pressure 126/72, pulse ox 95% on room air. CBC was unremarkable. Sodium 135, potassium 3.3, chloride 95, CO2 25, BUN 11 and creatinine 0.55. Lactic acid initially 4.8 and repeat 1.1. Magnesium 1.5 with repeat of 1.9. AST 71 and ALT 63. Troponin negative. Lipase 295. Urinalysis negative for infection. Much sugars noted to be on the low side. Patient states he has not been eating very much and his blood sugars have been running lower. His scan of the abdomen and pelvis revealed no acute abdomen mildly. Atherosclerotic vascular disease. Normal appendix. Chest x-ray reveals no acute process. Patient was Then 1 L of IV fluids, potassium replacement, Zofran IV 2, magnesium replacement, admitted to the [facility] floor, consult with GI. 12/18: The patient continues to have nausea but no vomiting and no diarrhea. Stool specimen has not been obtained. Patient has been seen by GI and scheduled for EGD for tomorrow. Patient concerned that sinus problems and ALLERGY contributing to his nausea. He has had significant problems over the years and recommended follow-up with Dr. Enriquez as an outpatient. Anticipate probable discharge home tomorrow after EGD study. 12/19: Patient underwent EGD this morning with Dr. Joe Watt and found mild duodenitis, mild antral erosive gastritis, small gastric polyp status post biopsy. Plan is to continue Protonix 40 mg daily and continue to follow antireflux measures. Patient initially was feeling well and subsequently developed significant nausea, Zofran was given by his nurse. If patient is able to tolerate later this morning, discharged home. Patient has been afebrile, heart rate 80, blood pressure 131/76, pulse ox 99% on room air. Capillary blood glucose running between 151 and 240. Patient will be discharged home today in stable condition. DISCHARGE DIAGNOSES 1. Intractable nausea vomiting and diarrhea. 2. History of CVA 4 with residual left-sided paraplegia. 3. History of non-small cell lung cancer status post right middle lobe lobectomy. 4. Chronic pain under the care of Dr. Parker. 5. Hypertension. 8. Hyperlipidemia. 9. Diabetes mellitus type 2. 10. Diabetic neuropathy. 11. History of coronary artery disease status post stent in the mid RCA. 12. Restless leg syndrome. 13. Seizure disorder. 14. gastroesophageal reflux disease. DISCHARGE PLAN Home. Greater than 35 minutes was utilized and coordinating patient's discharge. Impression and plan of care have been directed as dictated by the signing physician. Eleonora Almeida nurse practitioner acting as scribe for signing physician. Patient Condition at Discharge: Good Plan - Discharge Summary New Discharge Prescriptions: New Loratadine [Claritin] 10 mg PO DAILY tab Fluticasone Nasal [place] [Flonase Nasal [place]] 2 spray EA NOSTRIL DAILY gm Pantoprazole [Protonix] 40 mg PO AC-BRKFST #90 tab Continue Insulin Glargine,Hum.rec.anlog [Taishaaglscott Osorio U-100] 38 unit SQ BID Linagliptin [Tradjenta] 5 mg PO DAILY rOPINIRole HCL [Requip] 3 mg PO TID Montelukast [Singulair] 10 mg PO HS Potassium Chloride [K-Tab ER] 20 meq PO TID levETIRAcetam [Keppra] 1,500 mg PO BID Furosemide [Lasix] 40 mg PO BID Atorvastatin [Lipitor] 80 mg PO HS metFORMIN HCL [Glucophage] 1,000 mg PO BID methocarbamoL [Robaxin] 500 mg PO DAILY Glimepiride [Amaryl] 1 mg PO BID Loperamide [Imodium] 2 mg PO QID PRN cap PRN Reason: Diarrhea Metoprolol Tartrate [Lopressor] 12.5 mg PO HS Insulin Aspart [NovoLOG Flexpen] 16 units SQ ACHS traZODone HCL 150 mg PO HS Clopidogrel [Plavix] 75 mg PO DAILY tab Pregabalin [Lyrica] 225 mg PO HS #3 cap Ondansetron [Zofran] 4 mg PO Q8HR PRN #30 tab PRN Reason: Nausea Discontinued Famotidine [Pepcid] 20 mg PO BID Discharge Medication List Insulin Glargine,Hum.rec.anlog [Basaglar Kwikpen U-100] 38 unit SQ BID 05/30/19 [History] Linagliptin [Tradjenta] 5 mg PO DAILY 05/30/19 [History] rOPINIRole HCL [Requip] 3 mg PO TID 05/30/19 [History] Montelukast [Singulair] 10 mg PO HS 07/21/19 [History] Potassium Chloride [K-Tab ER] 20 meq PO TID 02/12/20 [History] levETIRAcetam [Keppra] 1,500 mg PO BID 05/03/20 [History] Furosemide [Lasix] 40 mg PO BID 09/06/20 [History] Atorvastatin [Lipitor] 80 mg PO HS 10/23/20 [History] metFORMIN HCL [Glucophage] 1,000 mg PO BID 10/23/20 [History] Metoprolol Tartrate [Lopressor] 12.5 mg PO HS 12/14/20 [History] Insulin Aspart [NovoLOG Flexpen] 16 units SQ ACHS 03/04/21 [History] methocarbamoL [Robaxin] 500 mg PO DAILY 03/04/21 [History] Glimepiride [Amaryl] 1 mg PO BID 05/01/21 [History] traZODone HCL 150 mg PO HS 05/01/21 [History] Clopidogrel [Plavix] 75 mg PO DAILY tab 05/04/21 [Rx] Pregabalin [Lyrica] 225 mg PO HS #3 cap 05/04/21 [Rx] Loperamide [Imodium] 2 mg PO QID PRN cap 11/20/21 [Rx] Ondansetron [Zofran] 4 mg PO Q8HR PRN #30 tab 11/20/21 [Rx] Fluticasone Nasal [place] [Flonase Nasal [place]] 2 spray EA NOSTRIL DAILY gm 12/19/21 [Rx] Loratadine [Claritin] 10 mg PO DAILY tab 12/19/21 [Rx] Pantoprazole [Protonix] 40 mg PO AC-BRKFST #90 tab 12/19/21 [Rx] Follow up Appointment(s)/Referral(s): Radha Ortiz MD [Primary Care Provider] - 12/26/21 10:00 am Patient Instructions/Handouts: Acute Nausea and Vomiting (ED), Acute Diarrhea (ED) Discharge Disposition: HOME SELF-CARE
--- NOTE | 2021-12-19 13:02 | P.PN ---
Subjective Progress Note Date: 12/19/21 HISTORY OF PRESENT ILLNESS This is a 56-year-old morbidly obese male patient of Dr. Ortiz. Patient also follows with Dr. Parker due to chronic pain with pain pump in place. He has history of seizure disorder, CVA 3 with left-sided weakness and significant decreased mobility, history of hypertension, diabetes mellitus type II, hyperlipidemia, coronary artery disease with previous stent to the mid RCA, squamous cell lung cancer status post right middle lobe lobectomy. His most recent hospitalization was in October 2019 for intractable nausea and vomiting and diarrhea, seen by GI instructed to stop marijuana use and patient was discharged home. Patient now presents with same complaints of nausea, vomiting diarrhea which she states have been going on for 5 days. He states he has not been taking any medications for the past 4 days except for Requip and metformin. Patient presented to [facility] emergency center. Patient was afebrile, heart rate in 90s, blood pressure 126/72, pulse ox 95% on room air. CBC was unremarkable. Sodium 135, potassium 3.3, chloride 95, CO2 25, BUN 11 and creatinine 0.55. Lactic acid initially 4.8 and repeat 1.1. Magnesium 1.5 with repeat of 1.9. AST 71 and ALT 63. Troponin negative. Lipase 295. Urinalysis negative for infection. Much sugars noted to be on the low side. Patient states he has not been eating very much and his blood sugars have been running lower. His scan of the abdomen and pelvis revealed no acute abdomen mildly. Atherosclerotic vascular disease. Normal appendix. Chest x-ray reveals no acute process. Patient was Then 1 L of IV fluids, potassium replacement, Zofran IV 2, magnesi um replacement, [facility], consult with GI. 12/18: The patient continues to have nausea but no vomiting and no diarrhea. Stool specimen has not been obtained. Patient has been seen by GI and scheduled for EGD for tomorrow. Patient concerned that sinus problems and ALLERGY co ntributing to his nausea. He has had significant problems over the years and recommended follow-up with Dr. Enriquez as an outpatient. Anticipate probable discharge home tomorrow after EGD study. 12/19: Patient underwent EGD this morning with Dr. Joe Watt and found mild duodenitis, mild antral erosive gastritis, small gastric polyp status post biopsy. Plan is to continue Protonix 40 mg daily and continue to follow antireflux measures. Patient initially was feeling well and subsequently develo ped significant nausea, Zofran was given by his nurse. If patient is able to tolerate later this morning, discharged home. Patient has been afebrile, heart rate 80, blood pressure 131/76, pulse ox 99% on room air. Capillary blood glucose running between 151 and 240. Due to worsening nausea and patient's fear of returning to the hospital, discharge will be held until tomorrow, monitor patient overnight, continue Zofran and Reglan. REVIEW OF SYSTEMS Constitutional: No fever, no chills, no night sweats. No weight change. No weakness, fatigue or lethargy. No daytime sleepiness. EENT: No headache. No blurred vision or double vision, no loss of vision. No loss of Hearing, no ringing in the ears, no dizziness. No nasal drainage or congestion. No epistaxis. No sore throat. Lungs: No shortness of breath, cough, no sputum production. No wheezing. Cardiovascular: No chest pain, no lower extremity edema. No palpitations. No paroxysmal nocturnal dyspnea. No orthopnea. No lightheadedness or dizziness. No syncopal episodes. Abdominal: No abdominal pain. Reports nausea, NO vomiting. Reports diarrhea. No constipation. No bloody or tarry stools.. No loss of appetite. Genitourinary: No dysuria, increased frequency, urgency. No urinary retention. Musculoskeletal: No myalgias. No muscle weakness, no gait dysfunction, no frequent falls. No back pain. No neck pain. Integumentary: No wounds, no lesions. No rash or pruritus. No unusual bruising. No change in hair or nails. Neurologic: No aphasia. Right-sided facial droop. No change in mentation. No head injury. No headache. No paralysis. No paresthesia. Psychiatric: No depression. No anxiety. No mood swings. Endocrine: No abnormal blood sugars. No weight change. No excessive sweating or thirst. No cold intolerance. PHYSICAL EXAMINATION Gen: This is a 56-year-old male. He is resting in chair and appears to be comfortable at this time. HEENT: Head is atraumatic, normocephalic. Pupils equal, round. Sclerae is anicteric. NECK: Supple. No JVD. No lymphadenopathy. No thyromegaly. LUNGS: Clear to auscultation. Diminished in the bases. No wheezes or rhonchi. No intercostal retractions. HEART: Regular rate and rhythm. No murmur. ABDOMEN: Soft. Bowel sounds are present. No masses. No tenderness. EXTREMITIES: No pedal edema. No calf tenderness. Dorsalis pedis palpable bilaterally. NEUROLOGICAL: Patient is awake, alert and oriented 3. Cranial nerves 2 through 12 are grossly intact. ASSESSMENT AND PLAN 1. Intractable nausea vomiting and diarrhea. Consult with GI appreciated, continue patient on Reglan 5 mg before meals and at bedtime, continue Protonix 40 mg twice daily, discontinue metformin. Continue Imodium 2 mg 4 times daily as needed for watery stool. Diarrhea has resolved. EGD 12/[address] Joe Watt and found mild duodenitis, mild antral erosive gastritis, small gastric polyp status post biopsy. 2. History of CVA 4 with residual left-sided paraplegia. Continue plavix, Lipitor. 3. History of non-small cell lung cancer status post right middle lobe lobectomy. 4. Chronic pain under the care of Dr. Parker. Pain pump is in place. Continue Lyrica 225 mg daily and 225 at bedtime, trazodone 150 mg at bedtime. 5. Hypertension. Hold Lasix 40 mg twice daily, continue Lopressor 12.5 mg at bedtime. 8. Hyperlipidemia. Continue atorvastatin. 9. Diabetes mellitus type 2. Continue NovoLog Before meals and at bedtime. Hold scheduled NovoLog and long-acting insulin. Continue Tradjenta 5 mg daily Amaryl 1 mg twice daily, hold metformin. 10. Diabetic neuropathy. Continue trazodone, Lyrica. 11. History of coronary artery disease status post stent in the mid RCA. Continue Lasix 75 mg daily, Lipitor 80 mg at bedtime. 12. Restless leg syndrome. Continue Requip 3 mg 3 times daily. 13. Seizure disorder. Continue Keppra 1500 mg twice daily. 14. GI prophylaxis and gastroesophageal reflux disease. Continue Tenex 40 mg twice daily, discontinue Pepcid. DISCHARGE PLAN Home ON Wednesday. Impression and plan of care have been directed as dictated by the signing physician. Eleonora Almeida nurse practitioner acting as scribe for signing physician. Objective - Vital Signs Vital signs: Vital Signs Temp 98.8 F 12/19/21 12:35 Pulse 81 12/19/21 12:35 Resp 17 12/19/21 12:35 BP 132/92 12/19/21 12:35 Pulse Ox 94 L 12/19/21 12:35 Intake & Output 12/18/21 12/19/21 12/19/21 18:59 06:59 18:59 Intake Total 100 Balance 100 Intake: IV 100 Other: Voiding Method Toilet # Voids 1 1 - Labs CBC & Chem 7: 12/18/21 04:20 12/18/21 04:20 Labs: Abnormal Lab Results - Last 24 Hours (Table) 12/18/21 12/18/21 12/19/21 Range/Units 15:35 20:29 02:42 POC Glucose (mg/dL) 163 H 189 H 240 H (75-99) mg/dL 12/19/21 12/19/21 12/19/21 Range/Units 02:50 07:19 11:16 POC Glucose (mg/dL) 223 H 151 H 175 H (75-99) mg/dL
[2021-12-19 16:48] LABS: Glucose,Whole Blood 176 mg/dL (75-99)
[2021-12-19] MEDS: traZODone HCL 50 MG TAB PO SCH (21:16)
[2021-12-19] MEDS: METOPROLOL TARTRATE 12.5 MG TAB PO SCH (21:16)
[2021-12-19 21:17] LABS: Glucose,Whole Blood 165 mg/dL (75-99)
[2021-12-19] MEDS: ATORVASTATIN 80 MG TAB PO SCH (21:17)
[2021-12-19] MEDS: PREGABALIN 75 MG CAP PO SCH (21:17)
[2021-12-19] MEDS: MONTELUKAST 10 MG TAB PO SCH (21:17)
[2021-12-19 23:27] VITALS: RESP 18
[2021-12-20] MEDS: ONDANSETRON 4 MG/2 ML VIAL IVP PRN ×2 (00:49→14:16)
[2021-12-20] MEDS: SODIUM CHLORIDE 0.9% 1,000 ML IV SCH (05:16)
[2021-12-20 07:01] LABS: Glucose,Whole Blood 191 mg/dL (75-99)
[2021-12-20] MEDS: PANTOPRAZOLE 40 MG TABLET PO SCH (08:40)
[2021-12-20] MEDS: LINAGLIPTIN 5 MG TABLET PO SCH (08:40)
[2021-12-20] MEDS: GLIMEPIRIDE 1 MG TAB PO SCH (08:40)
[2021-12-20] MEDS: LORATADINE 10 MG TAB PO SCH (08:40)
[2021-12-20] MEDS: FLUTICASONE 50MCG/SPRAY NASAL 16GM EA NOSTRIL SCH (08:40)
[2021-12-20] MEDS: INSULIN ASPART (NovoLOG) 100 UNIT/ML VIAL SQ SCH ×2 (08:40→12:25)
[2021-12-20] MEDS: METOCLOPRAMIDE 5 MG TAB PO SCH ×2 (08:41→12:25)
[2021-12-20 11:41] LABS: Glucose,Whole Blood 188 mg/dL (75-99)
[2021-12-20 14:44] VITALS: BP 133/89; PULSE 79; TEMP 98.5
== END 2021-12-20 15:58 | disposition home or self-care (01) | DRG 392 ==
LOC: EC 19:56 → 6NMEDSUR 12-17 03:09 → 4SSUR 12-17 03:48 → OBSVTOIN 12-17 11:50
PROVIDERS: ADMIT Internal Medicine Geriatric Medicine; ATTEND Internal Medicine Geriatric Medicine
PROC: 0DB78ZX Excision of Stomach, Pylorus, Via Natural or Artificial Opening Endoscopic, Diagnostic (ICD-10-PCS; 2021-12-19)
PROC: 0DB58ZX Excision of Esophagus, Via Natural or Artificial Opening Endoscopic, Diagnostic (ICD-10-PCS; principal; 2021-12-19 06:45)
DX: K29.60 Other gastritis without bleeding (principal); I69.354 Hemiplegia and hemiparesis following cerebral infarction affecting left non-dominant side; Z68.41 Body mass index [BMI] 40.0-44.9, adult; E87.2 Acidosis; E86.0 Dehydration; E66.01 Morbid (severe) obesity due to excess calories; E11.40 Type 2 diabetes mellitus with diabetic neuropathy, unspecified; E78.5 Hyperlipidemia, unspecified; E87.6 Hypokalemia; F32.A Depression, unspecified; G25.81 Restless legs syndrome; G40.909 Epilepsy, unspecified, not intractable, without status epilepticus; G89.29 Other chronic pain; I10 Essential (primary) hypertension; I25.10 Atherosclerotic heart disease of native coronary artery without angina pectoris; I25.2 Old myocardial infarction; Z87.01 Personal history of pneumonia (recurrent); J44.9 Chronic obstructive pulmonary disease, unspecified; K21.9 Gastro-esophageal reflux disease without esophagitis; F10.11 Alcohol abuse, in remission; K29.80 Duodenitis without bleeding; K31.7 Polyp of stomach and duodenum; M54.16 Radiculopathy, lumbar region; Z20.822 Contact with and (suspected) exposure to COVID-19; G47.30 Sleep apnea, unspecified; Z79.02 Long term (current) use of antithrombotics/antiplatelets; Z79.4 Long term (current) use of insulin; Z79.84 Long term (current) use of oral hypoglycemic drugs; Z79.899 Other long term (current) drug therapy; Z82.0 Family history of epilepsy and other diseases of the nervous system; Z82.49 Family history of ischemic heart disease and other diseases of the circulatory system; Z85.118 Personal history of other malignant neoplasm of bronchus and lung; Z87.891 Personal history of nicotine dependence; Z95.5 Presence of coronary angioplasty implant and graft; Z96.89 Presence of other specified functional implants; Z99.3 Dependence on wheelchair; Z90.2 Acquired absence of lung [part of]; Z98.890 Other specified postprocedural states; Z83.2 Family history of diseases of the blood and blood-forming organs and certain disorders involving the immune mechanism; Z82.61 Family history of arthritis
CPT/HCPCS: 36415; 43239; 71045; 74018; 74177; 80053; 81003; 83605; 83690; 83735; 84100; 84484; 85025; 87635; 88305; 93005; 96361; 96365; 96375; 96376; 99285

== ENCOUNTER 2022-12-06 04:28 | Observation (INO) | payer MEDICARE, OTHER ==
[2022-12-06 04:38] LABS: Glucose,Whole Blood 337 mg/dL (70-110)
[2022-12-06] MEDS ORDERED: METOCLOPRAMIDE 5 MG/ML 2 ML VIAL IVP STA (05:12)
[2022-12-06] MEDS ORDERED: SODIUM CHLORIDE 0.9% 1,000 ML IV STA (05:12)
[2022-12-06 05:13] LABS: Basophils % (A) 0 %; Eosinophils % (A) 0 %; HCT 40.3 % (39.0-53.0); HGB 13.3 gm/dL (13.0-17.5); Lymphocytes # (A) 0.6 k/uL (1.0-4.8); Lymphocytes % (A) 8 %; MCH 28.4 pg (25.0-35.0); MCHC 33.1 g/dL (31.0-37.0); Mean Platelet Volume 8.1; Monocytes # (A) 0.3 k/uL (0-1.0); Monocytes % (A) 4 %; Neutrophils # (A) 6.5 k/uL (1.3-7.7); Neutrophils % (A) 86 %; Platelet Count 193 k/uL (150-450); RBC 4.69 m/uL (4.30-5.90); RDW 14.9 % (11.5-15.5); WBC 7.5 k/uL (3.8-10.6)
[2022-12-06] MEDS ORDERED: PANTOPRAZOLE 40 MG/10 ML VIAL IVP STA (05:17)
--- NOTE | 2022-12-06 05:18 | ED ---
General Adult HPI - General Chief complaint: Nausea/Vomiting/Diarrhea Stated complaint: Abdominal Pain, Vomiting Time Seen by Provider: 12/06/22 04:46 Source: EMS Mode of arrival: EMS Limitations: no limitations - History of Present Illness Initial comments: Dictation was produced using [employer] dictation software. please excuse any grammatical, word or spelling errors. Chief Complaint: 57-year-old male with multiple comorbidities presents to the ER for abdominal pain nausea vomiting diarrhea History of Present Illness: Patient is a 49-year-old male presents to the emergency department for 5 hours of nausea vomiting diarrhea. Patient states he has had symptoms like this in the past. Patient has had an endoscopy performed by our GI specialist last year. States that he had gastritis and duodenitis. Patient complains of mild epigastric abdominal pain. States that his diarrhea is green. His vomiting is also green and yellowish. Complaining of nausea and vomiting. Denies any shortness of breath or cough. No fevers. The ROS documented in this emergency department record has been reviewed and confirmed by me. Those systems with pertinent positive or negative responses have been documented in the HPI. All other systems are other negative and/or noncontributory. PHYSICAL EXAM: General Impression: Alert and oriented x3, not in acute distress HEENT: Normocephalic atraumatic, extra-ocular movements intact, pupils equal and reactive to light bilaterally, mucous membranes moist. Cardiovascular: Heart regular rate and rhythm Chest: Able to complete full sentences, no retractions, no tachypnea Abdomen: abdomen soft, mild tenderness to the epigastrium, negative Arndt sign, non-distended, no organomegaly Musculoskeletal: Pulses present and equal in all extremities, no peripheral edema Motor: no focal deficits noted Neurological: CN II-XII grossly intact, no focal motor or sensory deficits noted Skin: Intact with no visualized rashes Psych: Normal affect and mood ED course: 57-year-old male presents emergency department for nausea vomiting diarrhea for the last 5 hours. Vital signs upon arrival are within acceptable limits. Prior charts were reviewed. There did appear to be a upper endoscopy procedure note from 12/19/2021 showing duodenitis, gastritis and gastric polyp. Patient had a transesophageal echocardiogram on April 2021 showing good ejection fraction. Nursing notes and chart review was performed My EKG interpretation: Ventricular rate 92, sinus rhythm, AR interval 145, QRS 93, QTC 34. No AR prolongation, no QTC prolongation, no ST or T-wave changes noted. Overall, this EKG is unremarkable Was pt. sent in by a medical professional or institution (ASHA Miller, RN BARIATRIC, urgent care, hospital, or correction...) When possible be specific @ -No Did you speak to anyone other than the patient for history (EMS, parent, family, police, friend...)? What history was obtained from this source @ -EMS Did you review nursing and triage notes (agree or disagree)? Why? @ -I reviewed and agree with nursing and triage notes Were old charts reviewed (outside hosp., previous admission, EMS record, old EKG, old radiological studies, urgent care reports/EKG's, correction records)? Report findings @ -No old charts were reviewed Differential Diagnosis (chest pain, altered mental status, abdominal pain women, abdominal pain men, vaginal bleeding, musculoskeletal, weakness, fever, dyspnea, syncope, headache, dizziness, GI bleed, back pain, seizure, CVA, palpatations, mental health)? @ -Differential Abdominal Pain Men: Appendicitis, cholecystitis, diverticulosis, ischemic bowel, pancreatitis, hepatitis, UTI, gastroenteritis, AAA, incarcerated hernia, bowel obstruction, constipation, inflammatory bowel, hepatitis, peptic ulcer disease, splenic infarction, perforated viscus, testicular torsion, this is not meant to be an all-inclusive list EKG interpreted by me (3pts min.). @ -See above X-rays interpreted by me (1pt min.). @ -Nonacute CT interpreted by me (1pt min.). @ -None done U/S interpreted by me (1pt. min.). @ -None done What testing was considered but not performed or refused? (CT, X-rays, U/S, labs)? Why? @ -None What meds were considered but not given or refused? Why? @ -None Did you discuss the management of the patient with other professionals (professionals i.e. ASHA Miller, RN BARIATRIC, lab, RT, psych nurse, social service coordinator, wastewater treatment plant supervisor, teacher, supply requirements officer, case consultant)? Give summary @ -Hospitalist for admission Was smoking cessation discussed for >3mins.? @ -No Was critical care preformed (if so, how long)? @ -No Were there social determinants of health that impacted care today? How? (Homelessness, low income, unemployed, alcoholism, drug addiction, transportation, low edu. Level, literacy, decrease access to med. care, halfway, rehab)? @ -No Was there de-escalation of care discussed even if they declined (Discuss DNR or withdrawal of care, Hospice)? DNR status @ -No What co-morbidities impacted this encounter? (DM, HTN, Smoking, COPD, CAD, Cancer, CVA, ARF, Chemo, Hep., AIDS, mental health diagnosis, sleep apnea, morbid obesity)? @ -History of lung cancer status post lobectomy, obesity Was patient admitted / discharged? Hospital course, mention meds given and route, prescriptions, significant lab abnormalities, going to OR and other pertinent info. @ -57-year-old male presents from correction for generalized abdominal pain. He has had bouts of vomiting and diarrhea as are unremarkable. Abdominal labs are negative. No leukocytosis. From a clinical standpoint his abdominal symptoms or mild. While in the emergency department he had multiple episodes of hypoxia. He is requiring supplemental oxygen. Patient does not wear oxygen at home. Suspect that patient's hypoxia secondary to obesity hypoventilation. Does have some high-risk features. Patient benefit from observation admission for respiratory monitoring with consultation to pulmonology. Undiagnosed new problem with uncertain prognosis? @ -No Drug Therapy requiring intensive monitoring for toxicity (Heparin, Nitro, Insulin, Cardizem)? @ -No Were any procedures done? @ -No Diagnosis/symptom? Acute, or Chronic, or Acute on Chronic? Uncomplicated (without systemic symptoms) or Complicated (systemic symptoms)? @ -1.Acute abdominal pain secondary to gastritis, 2. Episodic hypoxia Side effects of treatment? @ -No Exacerbation, Progression, or Severe Exacerbation? @ -No Poses a threat to life or bodily function? How? (Chest pain, [place], [place], pneumonia, PE, COPD, DKA, ARF, appy, cholecystitis, CVA, Diverticulitis, Homicidal, Suicidal, threat to staff... and all critical care pts) @ -yes - Related Data Home Medications Medication Instructions Recorded Confirmed Insulin Glargine,Hum.rec.anlog 38 unit SQ BID 05/30/19 12/17/21 [Basaglar Kwikpen U-100] Linagliptin [Tradjenta] 5 mg PO DAILY 05/30/19 12/17/21 rOPINIRole HCL [Requip] 3 mg PO TID 05/30/19 12/17/21 Montelukast [Singulair] 10 mg PO HS 07/21/19 12/17/21 Potassium Chloride [K-Tab ER] 20 meq PO TID 02/12/20 12/17/21 levETIRAcetam [Keppra] 1,500 mg PO BID 05/03/20 12/17/21 Furosemide [Lasix] 40 mg PO BID 09/06/20 12/17/21 Atorvastatin [Lipitor] 80 mg PO HS 10/23/20 12/17/21 metFORMIN HCL [Glucophage] 1,000 mg PO BID 10/23/20 12/17/21 Metoprolol Tartrate [Lopressor] 12.5 mg PO HS 12/14/20 12/17/21 Insulin Aspart [NovoLOG Flexpen] 16 units SQ ACHS 03/04/21 12/17/21 methocarbamoL [Robaxin] 500 mg PO DAILY 03/04/21 12/17/21 Glimepiride [Amaryl] 1 mg PO BID 05/01/21 12/17/21 traZODone HCL 150 mg PO HS 05/01/21 12/17/21 Previous Rx's Medication Instructions Recorded Clopidogrel [Plavix] 75 mg PO DAILY tab 05/04/21 Pregabalin [Lyrica] 225 mg PO HS #3 cap 05/04/21 Loperamide [Imodium] 2 mg PO QID PRN cap 11/20/21 Ondansetron [Zofran] 4 mg PO Q8HR PRN #30 tab 11/20/21 Fluticasone Nasal [place] [Flonase 2 spray EA NOSTRIL DAILY gm 12/19/21 Nasal [place]] Loratadine [Claritin] 10 mg PO DAILY tab 12/19/21 Pantoprazole [Protonix] 40 mg PO AC-BRKFST #90 tab 12/19/21 Allergies Allergy/AdvReac Type Severity Reaction Status Date / Time baclofen Allergy Unknown - Verified 12/17/21 07:38 Patient denies cyclobenzaprine Allergy Unknown - Verified 12/17/21 07:38 [From Flexeril] Patient denies Review of Systems ROS Statement: Those systems with pertinent positive or pertinent negative responses have been documented in the HPI. ROS Other: All systems not noted in ROS Statement are negative. Past Medical History Past Medical History: Coronary Artery Disease (CAD), Cancer, COPD, CVA/TIA, Diabetes Mellitus, GERD/Reflux, Hyperlipidemia, Hypertension, Myocardial Infarction ([place]), Osteoarthritis (OA), Seizure Disorder, Sleep Apnea/CPAP/BIPAP Additional Past Medical History / Comment(s): LAST SEIZURE 2018; lumbar radiculopathy; neuropathy; no CPAP needed per recent sleep study, hx. lung cancer, cellulitis of both lower legs 2020 Last Myocardial Infarction Date:: 10/22/10 History of Any Multi-Drug Resistant Organisms: None Reported Past Surgical History: Back Surgery, Cholecystectomy, Heart Catheterization With Stent Additional Past Surgical History / Comment(s): LAMINECTOMY ,fusion,spinal stimulator LEFT SHOULDER sx, 07-31-15 revison thoracic laminectomy t10- t11/removal of neuro stimulator and wires removed, fused L1&2 to a cage fusion that was previously put in to L3,4,5. May 27/2018. lobectomy of right middle lung Past Anesthesia/Blood Transfusion Reactions: No Reported Reaction Date of Last Stent Placement:: 10/22/10 Past Psychological History: No Psychological Hx Reported, Depression Smoking Status: Former smoker Past Alcohol Use History: None Reported Past Drug Use History: None Reported - Past Family History Brother(s) Family Medical History: Deep Vein Thrombosis (DVT) Mother Family Medical History: Osteoarthritis (OA) Additional Family Medical History / Comment(s): psoriases, Parkinsons Father Family Medical History: Coronary Artery Disease (CAD) Additional Family Medical History / Comment(s): heart problems- quad bypass, General Exam Limitations: no limitations Course Vital Signs 12/06/22 04:34 Temperature 99.1 F Pulse Rate 98 Respiratory 18 Rate Blood Pressure 118/76 O2 Sat by Pulse 97 Oximetry Medical Decision Making - Lab Data Result diagrams: 12/06/22 04:48 12/06/22 04:48 Lab Results 12/06/22 12/06/22 12/06/22 Range/Units 04:36 04:48 04:48 WBC 7.5 (3.8-10.6) k/uL RBC 4.69 (4.30-5.90) m/uL Hgb 13.3 (13.0-17.5) gm/dL Hct 40.3 (39.0-53.0) % MCV 86.0 (80.0-100.0) fL MCH 28.4 (25.0-35.0) pg MCHC 33.1 (31.0-37.0) g/dL RDW 14.9 (11.5-15.5) % Plt Count 193 (150-450) k/uL MPV 8.1 Neutrophils % 86 % Lymphocytes % 8 % Monocytes % 4 % Eosinophils % 0 % Basophils % 0 % Neutrophils # 6.5 (1.3-7.7) k/uL Lymphocytes # 0.6 L (1.0-4.8) k/uL Monocytes # 0.3 (0-1.0) k/uL Eosinophils # 0.0 (0-0.7) k/uL Basophils # 0.0 (0-0.2) k/uL Sodium 135 L (137-145) mmol/L Potassium 4.2 (3.5-5.1) mmol/L Chloride 92 L (98-107) mmol/L Carbon Dioxide 37 H (22-30) mmol/L Anion Gap 6 mmol/L BUN 12 (9-20) mg/dL Creatinine 0.59 L (0.66-1.25) mg/dL Est GFR (CKD-EPI)AfAm >90 (>60 ml/min/1.73 sqM) Est GFR (CKD-EPI)NonAf >90 (>60 ml/min/1.73 sqM) Glucose 320 H (74-99) mg/dL POC Glucose (mg/dL) 337 H (70-110) mg/dL POC Glu Freight Forwarder ID Jamie Gauthier Calcium 8.5 (8.4-10.2) mg/dL Total Bilirubin 1.1 (0.2-1.3) mg/dL AST 52 (17-59) U/L ALT 42 (4-49) U/L Alkaline Phosphatase 64 (38-126) U/L Total Protein 6.5 (6.3-8.2) g/dL Albumin 3.9 (3.5-5.0) g/dL Lipase 236 (23-300) U/L Disposition Clinical Impression: Hypoxia, Gastroenteritis Disposition: ADMITTED IP TO THIS HOSP Condition: Fair Referrals: Radha Ortiz MD [Primary Care Provider] - 1-2 days Decision Time: 06:12
[2022-12-06 05:25] LABS: ALT 42 U/L (4-49); AST 52 U/L (17-59); African American GFR (CKD) >90 (>60 ml/min/1.73 sqM); Albumin 3.9 g/dL (3.5-5.0); Alkaline Phosphatase 64 U/L (38-126); Anion Gap 6 mmol/L; Blood Urea Nitrogen 12 mg/dL (9-20); Calcium 8.5 mg/dL (8.4-10.2); Carbon Dioxide 37 mmol/L (22-30); Chloride 92 mmol/L (98-107); Glucose 320 mg/dL (74-99); Lipase 236 U/L (23-300); Non-African American GFR(CKD) >90 (>60 ml/min/1.73 sqM); Potassium 4.2 mmol/L (3.5-5.1); Sodium 135 mmol/L (137-145); Total Bilirubin 1.1 mg/dL (0.2-1.3); Total Protein 6.5 g/dL (6.3-8.2)
--- NOTE | 2022-12-06 05:54 | XR ---
EXAMINATION TYPE: XR chest 2V DATE OF EXAM: 12/06/2022 COMPARISON: 12/16/2021 HISTORY: Hypoxemia TECHNIQUE: 2 views FINDINGS: Heart is normal. Lungs are clear of consolidation. There are no hilar masses. No pleural ef fusion. Bony thorax is intact. There are chest leads. IMPRESSION: No active cardiopulmonary disease. Normal heart. No adverse change.
--- NOTE | 2022-12-06 05:55 | XR ---
EXAMINATION TYPE: XR abdomen 1V DATE OF EXAM: 12/06/2022 COMPARISON: 12/16/2021 HISTORY: Pain TECHNIQUE: 2 views upright FINDINGS: There is no sign of intestinal obstruction or pneumoperitoneum. Fecal pattern is normal. Th ere is device implanted over the left side of the mid abdomen. There is multilevel lumbar spine fusio n surgery. No pathologic calcifications over the kidneys. There are clips from cholecystectomy. IMPRESSION: Nonacute abdomen. No adverse change.
[2022-12-06] MEDS ORDERED: NALOXONE 0.4 MG/ML 1 ML VIAL IV PRN (06:04)
[2022-12-06 06:41] LABS: Glucose,Whole Blood 311 mg/dL (70-110)
[2022-12-06] MEDS ORDERED: DEXAMETHASONE SOD PHOSPHATE 10 MG/ML 1 ML VIAL IV STA (07:10)
[2022-12-06 08:39] LABS: Glucose,Whole Blood 330 mg/dL (70-110)
[2022-12-06 08:55] LABS: ABG Base Excess 11.5 mmol/L; ABG HCO3 36 mmol/L (21-25); ABG PCO2 56 mmHg (35-45); ABG PH 7.42 (7.35-7.45); ABG TCO2 38 mmol/L (19-24); Allen Test Performed? Yes
[2022-12-06 08:57] LABS: ABG PO2 52 mmHg (83-108)
[2022-12-06] MEDS ORDERED: DEXTROSE 50% SYRINGE 50 ML IVP PRN ×2 (11:14)
[2022-12-06] MEDS ORDERED: ACETAMINOPHEN TAB 500 MG TAB PO PRN (11:15)
[2022-12-06] MEDS ORDERED: IPRATROPIUM-ALBUTEROL 3 ML NEB INHALATION PRN (11:15)
[2022-12-06] MEDS ORDERED: ONDANSETRON 4 MG TAB PO PRN (11:15)
[2022-12-06] MEDS ORDERED: ALBUTEROL NEBULIZED 2.5 MG/3 ML INHALATION PRN (11:50)
[2022-12-06] MEDS ORDERED: IPRATROPIUM 0.5 MG/2.5 ML NEBU INHALATION PRN (11:51)
[2022-12-06] MEDS ORDERED: SCOPOLAMINE 1 MG/72 HR PATCH TRANSDERM SCH (12:00)
[2022-12-06 12:26] LABS: Glucose,Whole Blood 419 mg/dL (70-110)
[2022-12-06] MEDS: INSULIN ASPART (NovoLOG) 100 UNIT/ML VIAL SQ SCH ×6 (12:44→21:56)
[2022-12-06] MEDS: METOPROLOL TARTRATE 12.5 MG TAB PO SCH (12:47)
--- NOTE | 2022-12-06 12:49 | P.CNPUL ---
History of Present Illness Consult date: 12/06/22 Requesting physician: Kay Mccartney Reason for consult: dyspnea, hypoxemia Chief complaint: Nausea, vomiting, diarrhea History of present illness: This is a 57-year-old male patient has a history of coronary disease with previous stent placement, seizures, hyperlipidemia, hypertension, history of lung cancer with history of lobectomy of the right middle lobe, former smoker, CVA 3 with left-sided weakness and decreased mobility, diabetes mellitus, previous history of intractable nausea vomiting diarrhea. Previous EGD December 2021 revealed erosive gastritis, mild duodenitis, maintained on Protonix. He presented here to the emergency room early this morning with complaints of nausea vomiting diarrhea for 5 days. Emergency room reported O2 saturations in the 80s on room air and was placed on 2 L nasal cannula and we are consulted for the same. Chest x-ray reveals no acute pulmonary process. Abdominal x-ray revealed nonacute abdomen. Arterial blood gases on room air revealed a pO2 of 52, pCO2 56, pH 7.42. White count 7.5. Hemoglobin 13.3. Sodium 135. Potassium 4.2. Bicarb 37. BUN 12. Creatinine 0.59. Blood glucose 320. Lipase 236. Gibbs virus by PCR positive. He is seen today in consultation on the regular medical floor. He is currently sitting up in bed. Somewhat drowsy. Poor historian. Good O2 saturations in the upper 90s on 2 L/m per nasal cannula. Afebrile. Hemodynamically stable. Review of Systems ROS unobtainable: due to mental status Past Medical History Past Medical History: Coronary Artery Disease (CAD), Cancer, COPD, CVA/TIA, Diabetes Mellitus, GERD/Reflux, Hyperlipidemia, Hypertension, Myocardial Infarction ([place]), Osteoarthritis (OA), Seizure Disorder, Sleep Apnea/CPAP/BIPAP Additional Past Medical History / Comment(s): LAST SEIZURE 2018; lumbar radiculopathy; neuropathy; no CPAP needed per recent sleep study, hx. lung cancer, cellulitis of both lower legs 2020 Last Myocardial Infarction Date:: 10/22/10 History of Any Multi-Drug Resistant Organisms: None Reported Past Surgical History: Back Surgery, Cholecystectomy, Heart Catheterization With Stent Additional Past Surgical History / Comment(s): LAMINECTOMY ,fusion,spinal stimulator LEFT SHOULDER sx, 07-31-15 revison thoracic laminectomy t10- t11/removal of neuro stimulator and wires removed, fused L1&2 to a cage fusion that was previously put in to L3,4,5. May 27/2018. 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 Smoking Status: Former smoker Past Alcohol Use History: None Reported Additional Past Alcohol Use History / Comment(s): STARTED SMOKING 1977. Unable to obtain stopped smoking date. Past Drug Use History: None Reported Additional Drug Use History / Comment(s): HAS A MEDICAL MARIJUANA CARD-no current use. - Past Family History Brother(s) Family Medical History: Deep Vein Thrombosis (DVT) Mother Family Medical History: Osteoarthritis (OA) Additional Family Medical History / Comment(s): psoriases, Parkinsons Father Family Medical History: Coronary Artery Disease (CAD) Additional Family Medical History / Comment(s): heart problems- quad bypass, Medications and Allergies Home Medications Medication Instructions Recorded Confirmed Type Linagliptin [Tradjenta] 5 mg PO DAILY@0900 05/30/19 12/06/22 History rOPINIRole HCL [Requip] 3 mg PO TID@0900,1300,2100 05/30/19 12/06/22 History Montelukast [Singulair] 10 mg PO HS@209907/21/19 12/06/22 History Potassium Chloride [K-Tab ER] 20 meq PO BID@0900,2100 02/12/20 12/06/22 History levETIRAcetam [Keppra] 750 mg PO QID@09,,17,05/03/20 12/06/22 History Furosemide [Lasix] 40 mg PO BID@0600,1400 09/06/20 12/06/22 History Atorvastatin [Lipitor] 80 mg PO HS@2100 10/23/20 12/06/22 History Metoprolol Tartrate [Lopressor] 12.5 mg PO DAILY@0900 12/14/20 12/06/22 History methocarbamoL [Robaxin] 500 mg PO DAILY@0900 03/04/21 12/06/22 History traZODone HCL 150 mg PO HS@2100 05/01/21 12/06/22 History Acetaminophen Tab [Tylenol Tab] 1,000 mg PO Q6HR PRN 12/06/22 12/06/22 History Clopidogrel [Plavix] 75 mg PO DAILY@0900 12/06/22 12/06/22 History Divalproex [Depakote] 500 mg PO BID@0900,209912/06/22 12/06/22 History HYDROcodone/APAP 5-325MG [[place] 1 tab PO Q6H PRN 12/06/22 12/06/22 History 5-325] Insulin Glargine,Hum.rec.anlog 40 units SQ HS@209912/06/22 12/06/22 History [Lantus Solostar Pen] Insulin Lispro [humaLOG Kwikpen] 6 unit SQ TID-W/MEALS 12/06/22 12/06/22 History Insulin Lispro [humaLOG Kwikpen] See Protocol SQ ACHS 12/06/22 12/06/22 History Ipratropium-Albuterol Nebulize 3 ml INHALATION RT-Q4H PRN 12/06/22 12/06/22 History [Duoneb 0.5 mg-3 mg/3 ml Soln] Mirtazapine 7.5 mg PO HS@209912/06/22 12/06/22 History Ondansetron [Zofran] 4 mg PO Q6H PRN 12/06/22 12/06/22 History Pregabalin [Lyrica] 225 mg PO DAILY@0912/06/22 12/06/22 History Scopolamine [Scopolamine 1 MG/72 1 patch TRANSDERM Q72H 12/06/22 12/06/22 History HR patch] Allergies Allergy/AdvReac Type Severity Reaction Status Date / Time baclofen Allergy Unknown - Verified 12/06/22 10:41 Patient denies cyclobenzaprine Allergy Unknown - Verified 12/06/22 10:41 [From Flexeril] Patient denies Physical Exam Vitals: Vital Signs Temp Pulse Pulse Resp BP BP Pulse Ox 12/06/22 08:32 98.6 F 77 20 103/70 91 L 12/06/22 06:00 93 18 110/84 97 12/06/22 05:00 97 18 118/76 97 03/19/23 04:34 99.1 F 98 18 118/76 97 Intake and Output 12/05/22 12/06/22 12/06/22 22:59 06:59 14:59 Other: Weight 142.882 kg 142.882 kg GENERAL EXAM: Arousable but drifts off, obese, 57-year-old male, on 2 L nasal cannula,, comfortable in no apparent distress. HEAD: Normocephalic. EYES: Normal reaction of pupils, equal size. NOSE: Clear with pink turbinates. THROAT: No erythema or exudates. NECK: No masses, no JVD. CHEST: No chest wall deformity. LUNGS: Equal air entry with no crackles, wheeze, rhonchi or dullness. CVS: S1 and S2 normal with no audible murmur, regular rhythm. ABDOMEN: No hepatosplenomegaly, normal bowel sounds, no guarding or rigidity. SPINE: No scoliosis or deformity SKIN: No rashes CENTRAL NERVOUS SYSTEM: No focal deficits, tone is normal in all 4 extremities. EXTREMITIES: There is no peripheral edema. No clubbing, no cyanosis. Peripheral pulses are intact. Results - Laboratory Findings CBC and BMP: 12/06/22 04:48 12/06/22 04:48 ABG ABG pH 7.42 (7.35-7.45) 12/06/22 08:49 ABG pCO2 56 mmHg (35-45) H 12/06/22 08:49 ABG pO2 52 mmHg (83-108) L* 12/06/22 08:49 ABG O2 Saturation 85.0 % (94-97) L 12/06/22 08:49 Abnormal lab findings: Abnormal Labs 12/06/22 12/06/22 12/06/22 04:36 04:48 04:48 Lymphocytes # 0.6 L ABG pCO2 ABG pO2 ABG HCO3 ABG Total CO2 ABG O2 Saturation Sodium 135 L Chloride 92 L Carbon Dioxide 37 H Creatinine 0.59 L Glucose 320 H POC Glucose (mg/dL) 337 H Coronavirus (PCR) 12/06/22 12/06/22 12/06/22 06:24 06:39 08:37 Lymphocytes # ABG pCO2 ABG pO2 ABG HCO3 ABG Total CO2 ABG O2 Saturation Sodium Chloride Carbon Dioxide Creatinine Glucose POC Glucose (mg/dL) 311 H 330 H Coronavirus (PCR) Detected A 12/06/22 12/06/22 08:49 12:25 Lymphocytes # ABG pCO2 56 H ABG pO2 52 L* ABG HCO3 36 H ABG Total CO2 38 H ABG O2 Saturation 85.0 L Sodium Chloride Carbon Dioxide Creatinine Glucose POC Glucose (mg/dL) 419 H Coronavirus (PCR) - Diagnostic Findings Chest x-ray: image reviewed Assessment and Plan Assessment: Acute hypoxic/hypercapnic respiratory failure secondary to acute exacerbation of COPD. Chest x-ray shows no acute pulmonary process Altered mental status secondary to above COVID-19 infection with mainly GI symptoms, no COVID-19 pneumonia History of dementia History of non-small cell lung cancer with status post right middle lobe lobectomy History of CVA 3 with residual left-sided weakness Hyperlipidemia Hypertension Coronary disease with previous stent placement History seizures Diabetes mellitus, type II Obesity History of alcohol abuse Poor overall functional performance based on the above-mentioned multiple comorbidities, resides in [facility] Plan: The patient was seen and evaluated Chest x-ray, labs and medications reviewed Initiate IV Solu-Medrol, bronchodilators Titrate the FiO2 as tolerated We will continue to follow and make further recommendations based on his clinical status I have personally seen and examined the patient, performed the documentation and the assessment and plan as written. Number of minutes spent on the visit: 20.
[2022-12-06] MEDS ORDERED: ALBUTEROL HFA INHALER INHALATION PRN (15:00)
[2022-12-06] MEDS: ALBUTEROL HFA INHALER INHALATION SCH ×2 (15:09→20:13)
[2022-12-06] MEDS: SYMBICORT 160-4.5 MCG INHALER INHALATION SCH (15:10)
[2022-12-06] MEDS: TIOTROPIUM 2.5 MCG INHALER INHALATION PRN (15:10)
[2022-12-06] MEDS: HYDROcodone/APAP 5-325MG 1 EACH TAB PO PRN (15:40)
[2022-12-06] MEDS: methylPREDNISolone SOD SUCCI 40 MG/ML 1 ML VIAL IV SCH (15:41)
[2022-12-06] MEDS ORDERED: ALBUTEROL NEBULIZED 2.5 MG/3 ML INHALATION SCH (16:00)
[2022-12-06 17:27] LABS: Glucose,Whole Blood >600 mg/dL (70-110)
[2022-12-06 17:29] LABS: Glucose,Whole Blood 510 mg/dL (70-110)
[2022-12-06] MEDS ORDERED: BUDESONIDE 1 MG/2 ML NEBU INHALATION SCH (20:00)
[2022-12-06] MEDS ORDERED: FORMOTEROL FUMARATE 20 MCG/2 ML NEBU INHALATION SCH (20:00)
--- NOTE | 2022-12-06 20:25 | P.HPIM ---
History of Present Illness H&P Date: 12/06/22 Chief Complaint: Nausea, vomiting, diarrhea 49-year-old male presents to the emergency department for 5 hours of nausea vomiting diarrhea. Patient states he has had symptoms like this in the past. Patient has had an endoscopy performed by our GI specialist last year. States that he had gastritis and duodenitis. Patient complains of mild epigastric abdominal pain. States that his diarrhea is green. His vomiting is also green and yellowish. Complaining of nausea and vomiting. Denies any shortness of breath or cough. No fevers. Emergency room reported O2 saturations in the 80s on room air and was placed on 2 L nasal cannula and we are consulted for the same. Chest x-ray reveals no acute pulmonary process. Abdominal x-ray revealed nonacute abdomen. Arterial blood gases on room air revealed a pO2 of 52, pCO2 56, pH 7.42. White count 7.5. Hemoglobin 13.3. Sodium 135. Potassium 4.2. Bicarb 37. BUN 12. Creatinine 0.59. Blood glucose 320. Lipase 236. Gibbs virus by PCR positive. Review of Systems REVIEW OF SYSTEMS: CONSTITUTIONAL: No fever, no malaise, no fatigue. HEENT: No recent visual problems or hearing problems. Denied any sore throat. CARDIOVASCULAR: No chest pain, orthopnea, PND, no palpitations, no syncope. PULMONARY: No shortness of breath, no cough, no hemoptysis. GASTROINTESTINAL: No diarrhea, no nausea, no vomiting, no abdominal pain. NEUROLOGICAL: No headaches, no weakness, no numbness. HEMATOLOGICAL: Denies any bleeding or petechiae. GENITOURINARY: Denies any burning micturition, frequency, or urgency. MUSCULOSKELETAL/RHEUMATOLOGICAL: Denies any joint pain, swelling, or any muscle pain. ENDOCRINE: Denies any polyuria or polydipsia. The rest of the 14-point review of systems is negative. Past Medical History Past Medical History: Coronary Artery Disease (CAD), Cancer, COPD, CVA/TIA, Diabetes Mellitus, GERD/Reflux, Hyperlipidemia, Hypertension, Myocardial Infarction ([place]), Osteoarthritis (OA), Seizure Disorder, Sleep Apnea/CPAP/BIPAP Additional Past Medical History / Comment(s): LAST SEIZURE 2018; lumbar radiculopathy; neuropathy; no CPAP needed per recent sleep study, hx. lung cancer, cellulitis of both lower legs 2020 Last Myocardial Infarction Date:: 10/22/10 History of Any Multi-Drug Resistant Organisms: None Reported Past Surgical History: Back Surgery, Cholecystectomy, Heart Catheterization With Stent Additional Past Surgical History / Comment(s): LAMINECTOMY ,fusion,spinal stimulator LEFT SHOULDER sx, 07-31-15 revison thoracic laminectomy t10- t11/removal of neuro stimulator and wires removed, fused L1&2 to a cage fusion that was previously put in to L3,4,5. May 27/2018. lobectomy of right middle lung Past Anesthesia/Blood Transfusion Reactions: No Reported Reaction Date of Last Stent Placement:: 10/22/10 Past Psychological History: No Psychological Hx Reported, Depression Smoking Status: Former smoker Past Alcohol Use History: None Reported Past Drug Use History: None Reported - Past Family History Brother(s) Family Medical History: Deep Vein Thrombosis (DVT) Mother Family Medical History: Osteoarthritis (OA) Additional Family Medical History / Comment(s): psoriases, Parkinsons Father Family Medical History: Coronary Artery Disease (CAD) Additional Family Medical History / Comment(s): heart problems- quad bypass, Medications and Allergies Home Medications Medication Instructions Recorded Confirmed Type Linagliptin [Tradjenta] 5 mg PO DAILY@0900 05/30/19 12/06/22 History rOPINIRole HCL [Requip] 3 mg PO TID@0900,1300,2100 05/30/19 12/06/22 History Montelukast [Singulair] 10 mg PO HS@209907/21/19 12/06/22 History Potassium Chloride [K-Tab ER] 20 meq PO BID@0900,2100 02/12/20 12/06/22 History levETIRAcetam [Keppra] 750 mg PO QID@09,,,05/03/20 12/06/22 History Furosemide [Lasix] 40 mg PO BID@0600,1400 09/06/20 12/06/22 History Atorvastatin [Lipitor] 80 mg PO HS@2100 10/23/20 12/06/22 History Metoprolol Tartrate [Lopressor] 12.5 mg PO DAILY@0900 12/14/20 12/06/22 History methocarbamoL [Robaxin] 500 mg PO DAILY@0900 03/04/21 12/06/22 History traZODone HCL 150 mg PO HS@2100 05/01/21 12/06/22 History Acetaminophen Tab [Tylenol Tab] 1,000 mg PO Q6HR PRN 12/06/22 12/06/22 History Clopidogrel [Plavix] 75 mg PO DAILY@0900 12/06/22 12/06/22 History Divalproex [Depakote] 500 mg PO BID@0900,2100 12/06/22 12/06/22 History HYDROcodone/APAP 5-325MG [[place] 1 tab PO Q6H PRN 12/06/22 12/06/22 History 5-325] Insulin Glargine,Hum.rec.anlog 40 units SQ HS@209912/06/22 12/06/22 History [Lantus Solostar Pen] Insulin Lispro [humaLOG Kwikpen] 6 unit SQ TID-W/MEALS 12/06/22 12/06/22 History Insulin Lispro [humaLOG Kwikpen] See Protocol SQ ACHS 12/06/22 12/06/22 History Ipratropium-Albuterol Nebulize 3 ml INHALATION RT-Q4H PRN 12/06/22 12/06/22 History [Duoneb 0.5 mg-3 mg/3 ml Soln] Mirtazapine 7.5 mg PO HS@209912/06/22 12/06/22 History Ondansetron [Zofran] 4 mg PO Q6H PRN 12/06/22 12/06/22 History Pregabalin [Lyrica] 225 mg PO DAILY@0900 12/06/22 12/06/22 History Scopolamine [Scopolamine 1 MG/72 1 patch TRANSDERM Q72H 12/06/22 12/06/22 History HR patch] Allergies Allergy/AdvReac Type Severity Reaction Status Date / Time baclofen Allergy Unknown - Verified 12/06/22 10:41 Patient denies cyclobenzaprine Allergy Unknown - Verified 12/06/22 10:41 [From Flexeril] Patient denies Physical Exam Vitals: Vital Signs Temp Pulse Resp BP Pulse Ox 12/06/22 06:00 93 18 110/84 97 12/06/22 05:00 97 18 118/76 97 12/06/22 04:34 99.1 F 98 18 118/76 97 Intake and Output 12/05/22 12/06/22 12/06/22 22:59 06:59 14:59 Other: Weight 142.882 kg PHYSICAL EXAMINATION: GENERAL: The patient is alert and oriented x3, not in any acute distress. Well developed, well nourished. HEENT: Pupils are round and equally reacting to light. EOMI. No scleral icterus. No conjunctival pallor. Normocephalic, atraumatic. No pharyngeal erythema. No thyromegaly. CARDIOVASCULAR: S1 and S2 present. No murmurs, rubs, or gallops. PULMONARY: Chest is clear to auscultation, no wheezing or crackles. ABDOMEN: Soft, nontender, nondistended, normoactive bowel sounds. No palpable organomegaly. MUSCULOSKELETAL: No joint swelling or deformity. EXTREMITIES: No cyanosis, clubbing, or pedal edema. NEUROLOGICAL: Gross neurological examination did not reveal any focal deficits. SKIN: No rashes. Results CBC & Chem 7: 12/06/22 04:48 12/06/22 04:48 Labs: Abnormal Lab Results - Last 24 Hours (Table) 12/06/22 12/06/22 12/06/22 Range/Units 04:36 04:48 04:48 Lymphocytes # 0.6 L (1.0-4.8) k/uL Sodium 135 L (137-145) mmol/L Chloride 92 L (98-107) mmol/L Carbon Dioxide 37 H (22-30) mmol/L Creatinine 0.59 L (0.66-1.25) mg/dL Glucose 320 H (74-99) mg/dL POC Glucose (mg/dL) 337 H (70-110) mg/dL Coronavirus (PCR) (Not Detectd) 12/06/22 12/06/22 Range/Units 06:24 06:39 Lymphocytes # (1.0-4.8) k/uL Sodium (137-145) mmol/L Chloride (98-107) mmol/L Carbon Dioxide (22-30) mmol/L Creatinine (0.66-1.25) mg/dL Glucose (74-99) mg/dL POC Glucose (mg/dL) 311 H (70-110) mg/dL Coronavirus (PCR) Detected A (Not Detectd) Assessment and Plan Assessment: Acute hypoxic/hypercapnic respiratory failure secondary to acute exacerbation of COPD. Chest x-ray shows no acute pulmonary process Altered mental status secondary to above COVID-19 infection with mainly GI symptoms, no COVID-19 pneumonia Hyperlipidemia Hypertension Coronary disease with previous stent placement History seizures Diabetes mellitus, type II Obesity History of alcohol abuse Poor overall functional performance based on the above-mentioned multiple comorbidities, resides in [facility] History of dementia History of non-small cell lung cancer with status post right middle lobe lobectomy History of CVA 3 with residual left-sided weakness Patient is admitted to general medical floor; patient is started on IV Solu-Medrol bronchodilator nebulizer treatments; O2 per nasal cannula with a plan to titrate intravenous able - We will continue with supportive treatment of nausea vomiting and diarrhea -- Patient blood sugars remain markedly elevated and has been placed on home dose of Levemir; we will increase pre-meal short-acting insulin up from 6 units before meals to 10 units before each meal with sliding scale -- We will continue home medications in form of Lipitor, metoprolol, Plavix, Depakote, Keppra, Singulair
[2022-12-06] MEDS: DIVALPROEX 500 MG TABLET.DR PO SCH (20:28)
[2022-12-06] MEDS ORDERED: MIRTAZAPINE 15 MG TAB PO SCH (21:00)
[2022-12-06] MEDS ORDERED: MONTELUKAST 10 MG TAB PO SCH (21:00)
[2022-12-06] MEDS ORDERED: INSULIN DETEMIR (LEVEMIR) 100 UNIT/ML SYR SQ SCH (21:00)
[2022-12-06] MEDS ORDERED: traZODone HCL 50 MG TAB PO SCH (21:00)
[2022-12-06] MEDS ORDERED: ATORVASTATIN 80 MG TAB PO SCH (21:00)
[2022-12-06 21:11] LABS: Glucose,Whole Blood 416 mg/dL (70-110)
--- NOTE | 2022-12-06 21:46 | P.CONS ---
History of Present Illness - Reason for Consult Consult date: 12/06/22 Left buttock/thigh abscess Requesting physician: Pauline Castillo - Chief Complaint Shortness of breath x few days - History of Present Illness Patient is a 57-year-old male with a past medical history significant for COPD diabetes mellitus GERD hypertension hyperlipidemia seizure disorder and coronary artery disease previous history of lung cancer with the right middle lobe lobectomy patient mention he recently did have a fall and has developed a hematoma to the left posterior thigh/gluteal area for the patient was admitted at [facility] patient mention that he did have some drainage of the hematoma however he is not very clear if any cultures were done on if he was treated with antibiotic therapy patient is presenting to the hospital for evaluation of nausea and vomiting diarrhea symptom has been getting worse over the last 5 days with multiple episodes of vomiting patient did have some epigastric discomfort more from mild denies any blood or mucus in the stools and no high-grade fever patient denies having any chest pain minimal shortness of breath occasional dry cough with August the patient was evaluated on arrival to the ER the patient did have a low-grade fever of 99.1 degrees for night patient was not hypoxic or need for supplemental oxygen did have a normal white count kidney function was normal liver enzymes are normal tested positive for COVID-19 chest x-ray reported negative for acute cardiopulmonary process abdominal x-ray nonacute abdominal infectious disease was consulted for possible abscess to left posterior thigh/gluteal area Review of Systems Positive point has been mentioned in the HPI rest of the systems are negative Past Medical History Past Medical History: Coronary Artery Disease (CAD), Cancer, COPD, CVA/TIA, Diabetes Mellitus, GERD/Reflux, Hyperlipidemia, Hypertension, Myocardial Infarction (AL), Osteoarthritis (OA), Seizure Disorder, Sleep Apnea/CPAP/BIPAP Additional Past Medical History / Comment(s): LAST SEIZURE 2018; lumbar radiculopathy; neuropathy; no CPAP needed per recent sleep study, hx. lung cancer, cellulitis of both lower legs 2020 Last Myocardial Infarction Date:: 10/22/10 History of Any Multi-Drug Resistant Organisms: None Reported Past Surgical History: Back Surgery, Cholecystectomy, Heart Catheterization With Stent Additional Past Surgical History / Comment(s): LAMINECTOMY ,fusion,spinal stimulator LEFT SHOULDER sx, 07-31-15 revison thoracic laminectomy [id number] emoval of neuro stimulator and wires removed, fused L1&2 to a cage fusion that was previously put in to L3,4,5. May 27/2018. lobectomy of right middle lung Past Anesthesia/Blood Transfusion Reactions: No Reported Reaction Date of Last Stent Placement:: 10/22/10 Past Psychological History: No Psychological Hx Reported, Depression Smoking Status: Former smoker Past Alcohol Use History: None Reported Past Drug Use History: None Reported - Past Family History Brother(s) Family Medical History: Deep Vein Thrombosis (DVT) Mother Family Medical History: Osteoarthritis (OA) Additional Family Medical History / Comment(s): psoriases, Parkinsons Father Family Medical History: Coronary Artery Disease (CAD) Additional Family Medical History / Comment(s): heart problems- quad bypass, Medications and Allergies Home Medications Medication Instructions Recorded Confirmed Type Linagliptin [Tradjenta] 5 mg PO DAILY@0900 05/30/19 12/06/22 History rOPINIRole HCL [Requip] 3 mg PO TID@0900,1300,2100 05/30/19 12/06/22 History Montelukast [Singulair] 10 mg PO HS@2100 07/21/19 12/06/22 History Potassium Chloride [K-Tab ER] 20 meq PO BID@0900,2100 02/12/20 12/06/22 History levETIRAcetam [Keppra] 750 mg PO QID@09,13,17,21 05/03/20 12/06/22 History Furosemide [Lasix] 40 mg PO BID@0600,1400 09/06/20 12/06/22 History Atorvastatin [Lipitor] 80 mg PO HS@2100 10/23/20 12/06/22 History Metoprolol Tartrate [Lopressor] 12.5 mg PO DAILY@0900 12/14/20 12/06/22 History methocarbamoL [Robaxin] 500 mg PO DAILY@0900 03/04/21 12/06/22 History traZODone HCL 150 mg PO HS@2100 05/01/21 12/06/22 History Acetaminophen Tab [Tylenol] 1,000 mg PO Q6HR PRN 12/06/22 12/06/22 History Clopidogrel [Plavix] 75 mg PO DAILY@0900 12/06/22 12/06/22 History Divalproex [Depakote] 500 mg PO BID@0900,2100 12/06/22 12/06/22 History Insulin Glargine,Hum.rec.anlog 40 units SQ HS@209912/06/22 12/06/22 History [Lantus Solostar Pen] Insulin Lispro [humaLOG Kwikpen] See Protocol SQ ACHS 12/06/22 12/06/22 History Ipratropium-Albuterol Nebulize 3 ml INHALATION RT-Q4H PRN 12/06/22 12/06/22 History [Duoneb 0.5 mg-3 mg/3 ml Soln] Mirtazapine 7.5 mg PO HS@209912/06/22 12/06/22 History Ondansetron [Zofran] 4 mg PO Q6H PRN 12/06/22 12/06/22 History Pregabalin [Lyrica] 225 mg PO DAILY@0900 12/06/22 12/06/22 History Scopolamine [Scopolamine 1 MG/72 1 patch TRANSDERM Q72H 12/06/22 12/06/22 History HR patch] Albuterol Inhaler [Ventolin Hfa 2 puff INHALATION RT-QID each 12/07/22 Rx Inhaler] Famotidine [Pepcid] 20 mg PO BID #0 tab 12/07/22 Rx INSULIN ASPART (NovoLOG) [NovoLOG 0 unit SQ ACHS each 12/07/22 Rx (formulary)] INSULIN ASPART (NovoLOG) [NovoLOG 10 unit SQ TID-W/MEALS each 12/07/22 Rx (formulary)] Tiotropium 2.5 Mcg/Puff [Spiriva 2 puff INHALATION DAILY PRN each 12/07/22 Rx Respimat 2.5 Mcg] methylPREDNISolone Dose Pack 4 mg PO DIRECTED #1 packet 12/07/22 Rx [Medrol Dose Pack] Allergies Allergy/AdvReac Type Severity Reaction Status Date / Time baclofen Allergy Unknown - Verified 12/06/22 10:41 Patient denies cyclobenzaprine Allergy Unknown - Verified 12/06/22 10:41 [From Flexeril] Patient denies Physical Exam Vitals: Vital Signs Temp Pulse Pulse Resp BP BP Pulse Ox 12/06/22 08:32 98.6 F 77 20 103/70 91 L 12/06/22 06:00 93 18 110/84 97 12/06/22 05:00 97 18 118/76 97 12/06/22 04:34 99.1 F 98 18 118/76 97 Intake and Output 12/05/22 12/06/22 12/06/22 22:59 06:59 14:59 Other: Weight 142.882 kg GENERAL DESCRIPTION: Middle-aged male lying in bed, no distress. No tachypnea or accessory muscle of respiration use. HEENT: Shows Pallor , no scleral icterus. Oral mucous membrane is dry. No pharyngeal erythema or thrush NECK: Trachea central, no thyromegaly. LUNGS: Unlabored breathing. Decreased intensity of breath sounds HEART: S1, S2, regular rate and rhythm. No loud murmur ABDOMEN: Soft, no tenderness , guarding or rigidity, no organomegaly EXTREMITIES: Left thigh/ gluteal area did have a wound with no slough tissue no surrounding redness or drainage SKIN: No rash, no masses palpable. NEUROLOGICAL: The patient is awake, alert, oriented x3, mood and affect normal. Results CBC & Chem 7: 12/07/22 05:03 12/07/22 05:03 Labs: Abnormal Lab Results - Last 24 Hours (Table) 12/06/22 12/06/22 12/06/22 Range/Units 04:36 04:48 04:48 Lymphocytes # 0.6 L (1.0-4.8) k/uL ABG pCO2 (35-45) mmHg ABG pO2 (83-108) mmHg ABG HCO3 (21-25) mmol/L ABG Total CO2 (19-24) mmol/L ABG O2 Saturation (94-97) % Sodium 135 L (137-145) mmol/L Chloride 92 L (98-107) mmol/L Carbon Dioxide 37 H (22-30) mmol/L Creatinine 0.59 L (0.66-1.25) mg/dL Glucose 320 H (74-99) mg/dL POC Glucose (mg/dL) 337 H (70-110) mg/dL Coronavirus (PCR) (Not Detectd) 12/06/22 12/06/22 12/06/22 Range/Units 06:24 06:39 08:37 Lymphocytes # (1.0-4.8) k/uL ABG pCO2 (35-45) mmHg ABG pO2 (83-108) mmHg ABG HCO3 (21-25) mmol/L ABG Total CO2 (19-24) mmol/L ABG O2 Saturation (94-97) % Sodium (137-145) mmol/L Chloride (98-107) mmol/L Carbon Dioxide (22-30) mmol/L Creatinine (0.66-1.25) mg/dL Glucose (74-99) mg/dL POC Glucose (mg/dL) 311 H 330 H (70-110) mg/dL Coronavirus (PCR) Detected A (Not Detectd) 12/06/22 Range/Units 08:49 Lymphocytes # (1.0-4.8) k/uL ABG pCO2 56 H (35-45) mmHg ABG pO2 52 L* (83-108) mmHg ABG HCO3 36 H (21-25) mmol/L ABG Total CO2 38 H (19-24) mmol/L ABG O2 Saturation 85.0 L (94-97) % Sodium (137-145) mmol/L Chloride (98-107) mmol/L Carbon Dioxide (22-30) mmol/L Creatinine (0.66-1.25) mg/dL Glucose (74-99) mg/dL POC Glucose (mg/dL) (70-110) mg/dL Coronavirus (PCR) (Not Detectd) Assessment and Plan (1) Unspecified open wound, left thigh, initial encounter Status: Acute Code(s): S71.102A - UNSPECIFIED OPEN WOUND, LEFT THIGH, INITIAL ENCOUNTER SNOMED Code(s): 00906921410374532 (2) COVID-19 Status: Acute Code(s): U07.1 - COVID-19 SNOMED Code(s): 403698071 Plan: 1patient with a recent history of fall with hematoma to the left gluteal/upper posterior thigh area apparently did have drainage done at [facility] however the area does not look inflamed no purulent drainage was noticed patient not running any fever and his white count is normal clinically not behaving as an abscess or cellulitis hence recommending no antibiotic therapy. 2patient did tested positive for COVID-19 however the patient is not hypoxic or need for supplemental oxygen chest x-ray was negative for any acute cardiopulmonary process treatment will be mostly supportive no need for re mdesivir. We will follow on clinical condition and cultures to further adjust medication if needed Thank you for this consultation we will follow the patient along with you Time with Patient: Greater than 30
[2022-12-06 23:55] LABS: Glucose,Whole Blood 388 mg/dL (70-110)
[2022-12-07] MEDS: methylPREDNISolone SOD SUCCI 40 MG/ML 1 ML VIAL IV SCH (00:20)
[2022-12-07 06:00] LABS: Glucose,Whole Blood 447 mg/dL (70-110)
[2022-12-07] MEDS: INSULIN ASPART (NovoLOG) 100 UNIT/ML VIAL SQ SCH ×3 (06:29→12:25)
[2022-12-07] MEDS ORDERED: INSULIN ASPART (NovoLOG) 100 UNIT/ML VIAL SQ ONE (07:00)
[2022-12-07] MEDS ORDERED: metFORMIN 500 MG TAB PO SCH (07:30)
[2022-12-07] MEDS: TIOTROPIUM 2.5 MCG INHALER INHALATION PRN (07:55)
[2022-12-07] MEDS: ALBUTEROL HFA INHALER INHALATION SCH ×2 (07:55→10:52)
[2022-12-07] MEDS: SYMBICORT 160-4.5 MCG INHALER INHALATION SCH (07:55)
[2022-12-07 08:43] VITALS: BP 114/70; PULSE 87; RESP 20; TEMP 97.7
[2022-12-07] MEDS: DIVALPROEX 500 MG TABLET.DR PO SCH (08:51)
[2022-12-07] MEDS: METOPROLOL TARTRATE 12.5 MG TAB PO SCH (08:52)
[2022-12-07] MEDS ORDERED: FAMOTIDINE 20 MG/2 ML VIAL IV SCH (09:00)
[2022-12-07] MEDS ORDERED: HEPARIN SODIUM,PORCINE/PF 5,000 UNIT/0.5 ML SYRINGE SQ SCH (09:00)
[2022-12-07] MEDS ORDERED: CLOPIDOGREL 75 MG TAB PO SCH (09:00)
[2022-12-07] MEDS ORDERED: PREGABALIN 75 MG CAP PO SCH (09:00)
[2022-12-07] MEDS ORDERED: methocarbamoL 500 MG TAB PO SCH (09:00)
[2022-12-07] MEDS ORDERED: LINAGLIPTIN 5 MG TABLET PO SCH (09:00)
[2022-12-07] MEDS ORDERED: methylPREDNISolone 4 MG TAB TAPER PO SCH (09:00)
[2022-12-07 09:14] LABS: African American GFR (CKD) 114.1 (60.0-200.0); Anion Gap 8.9 mmol/L (10.00-18.00); BUN/Creat Ratio 19.5 Ratio (12.00-20.00); Blood Urea Nitrogen 15.6 mg/dL (9.0-27.0); Calcium 8.3 mg/dL (8.7-10.3); Carbon Dioxide 33.1 mmol/L (20.0-27.5); Non-African American GFR(CKD) 98.5 (60.0-200.0); Potassium 4.1 mmol/L (3.5-5.5)
[2022-12-07 09:44] LABS: Basophils # (A) 0.01 X 10*3/uL (0.00-0.10); Basophils % (A) 0.1 %; Eosinophils # (A) 0 X 10*3/uL (0.04-0.35); Eosinophils % (A) 0 %; HCT 35.6 % (39.6-50.0); Immature Grans, Automated 0.6 %; Lymphocytes # (A) 0.55 X 10*3/uL (0.90-5.00); Lymphocytes % (A) 7.8 %; MCH 27.9 pg (27.0-32.0); MCHC 30.9 g/dL (32.0-37.0); MCV 90.4 fL (80.0-97.0); Mean Platelet Volume 11.4 fL (9.5-12.2); Monocytes # (A) 0.28 X 10*3/uL (0.20-1.00); NRBC Per 100 WBC 0 /100 WBCS (0.0-0.0); Neutrophils # (A) 6.16 X 10*3/uL (1.80-7.70); Neutrophils % (A) 87.5 %; Platelet Count 217 X 10*3/uL (140-440); RBC 3.94 X 10*6/uL (4.40-5.60); WBC 7.04 X 10*3/uL (4.50-10.00)
[2022-12-07] MEDS ORDERED: DEXTROSE 50% SYRINGE 50 ML IVP PRN ×2 (11:32)
--- NOTE | 2022-12-07 11:32 | P.DS ---
Providers Date of admission: 12/06/22 06:04 Attending physician: Kay Mccartney Consults: 12/06/22 06:04 Consult Physician Routine Consulting Provider: Nadria Montalvo Consult Reason/Comments: hypoxia Do you want consulting provider notified?: Yes 12/06/22 11:16 Consult Physician Urgent Consulting Provider: Louann Hdez Consult Reason/Comments: wounds, left buttock/thigh abscess Do you want consulting provider notified?: Yes Primary care physician: Radha Ortiz Hospital Course: Diagnoses: Acute hypoxic/hypercapnic respiratory failure secondary to acute exacerbation of COPD. Chest x-ray shows no acute pulmonary process Altered mental status secondary to above, completely resolved and back to normal COVID-19 infection with mainly GI symptoms, no COVID-19 pneumonia, no hypoxia due to covid Acute gastroenteritis, secondary to Covid viral infection, improved diabetes mellitus with hyperglycemia Hyperlipidemia Hypertension Coronary disease with previous stent placement History seizures Diabetes mellitus, type II Obesity History of alcohol abuse Poor overall functional performance based on the above-mentioned multiple comorbidities, resides in [facility] History of dementia History of non-small cell lung cancer with status post right middle lobe lobectomy 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 Patient states he has had symptoms like this in the past. Patient has had an endoscopy performed by our GI specialist last year. States that he had gastritis and duodenitis. Patient complains of mild epigastric abdominal pain. States that his diarrhea is green. His vomiting is also green and yellowish. Complaining of nausea and vomiting. Patient abdominal symptoms resolved and since yesterday his been eating 75-100% of his meals. No abdominal pain vomiting or diarrhea. Also patient was with acute COPD exacerbation and mild hypoxia and he was improved with IV Solu-Medrol. Pulmonary team already evaluated him. Today patient is fully awake and oriented, very relaxed and pleasant, sitting on the edge of the bed, stating he feels fine and he wants to be discharged back to [facility]. Pulmonary team already have seen him this morning and cleared him for discharge. This morning he denies chest pain dyspnea or coughing. No abdominal pain vomiting diarrhea. He tolerates diet well. No urinary complaints. No fever. No weakness numbness. Patient also have some evidence of hyperglycemia and he says that recently he stopped his metformin by his PCP and he was on Linagliptin on admission, Increase his NovoLog from 6 years up to 10 units with meals and continue with insulin sliding scale Patient was cleared for discharge by pulmonary team Patient will be discharged on tapering steroids, and antiacids Problems and management plan were discussed with the patient and he verbalized understanding and acceptance Patient was found stable and can be discharged home in guarded prognosis however he needs follow-up as an outpatient. Patient was instructed to follow up with PCP within one week and patient agrees Patient was instructed to follow up with child care director Dr. Waddell in 1-2 weeks and with manager treasury Dr. Castle in 1-2 weeks Physical exam Gen: patient is a AAOx3, no distress. Obese CVS: S1-S2, RRR, no murmur Lungs: B/L CTA, no wheezing Abdomen: soft, no distention, no tenderness, positive bowel sounds Extremity: no leg edema or induration Time spent more than 35 minutes Patient Condition at Discharge: Fair Plan - Discharge Summary Discharge Rx Participant: No New Discharge Prescriptions: New Famotidine [Pepcid] 20 mg PO BID #0 tab INSULIN ASPART (NovoLOG) [NovoLOG (formulary)] 10 unit SQ TID-W/MEALS each Albuterol Inhaler [Ventolin Hfa Inhaler] 2 puff INHALATION RT-QID each Continue Linagliptin [Tradjenta] 5 mg PO DAILY@0900 rOPINIRole HCL [Requip] 3 mg PO TID@0900,1300,2100 Montelukast [Singulair] 10 mg PO HS@2100 Potassium Chloride [K-Tab ER] 20 meq PO BID@0900,2100 levETIRAcetam [Keppra] 750 mg PO QID@09,13,17,21 Furosemide [Lasix] 40 mg PO BID@0600,1400 Atorvastatin [Lipitor] 80 mg PO HS@2100 methocarbamoL [Robaxin] 500 mg PO DAILY@0900 Acetaminophen Tab [Tylenol] 1,000 mg PO Q6HR PRN PRN Reason: Pain Or Fever > 100.5 Clopidogrel [Plavix] 75 mg PO DAILY@0900 Ipratropium-Albuterol Nebulize [Duoneb 0.5 mg-3 mg/3 ml Soln] 3 ml INHALATION RT-Q4H PRN PRN Reason: Shortness Of Breath Mirtazapine 7.5 mg PO HS@2100 Pregabalin [Lyrica] 225 mg PO DAILY@0900 Scopolamine [Scopolamine 1 MG/72 HR patch] 1 patch TRANSDERM Q72H Metoprolol Tartrate [Lopressor] 12.5 mg PO DAILY@0900 traZODone HCL 150 mg PO HS@2100 Divalproex [Depakote] 500 mg PO BID@0900,2100 Insulin Glargine,Hum.rec.anlog [Lantus Solostar Pen] 40 units SQ HS@2100 Insulin Lispro [humaLOG Kwikpen] See Protocol SQ ACHS Ondansetron [Zofran] 4 mg PO Q6H PRN PRN Reason: Nausea Discontinued Insulin Lispro [humaLOG Kwikpen] 6 unit SQ TID-W/MEALS HYDROcodone/APAP 5-325MG [[place] 5-325] 1 tab PO Q6H PRN PRN Reason: Pain Discharge Medication List Linagliptin [Tradjenta] 5 mg PO DAILY@0905/30/19 [History] rOPINIRole HCL [Requip] 3 mg PO TID@0900,1300,2100 05/30/19 [History] Montelukast [Singulair] 10 mg PO HS@209907/21/19 [History] Potassium Chloride [K-Tab ER] 20 meq PO BID@0900,209902/12/20 [History] levETIRAcetam [Keppra] 750 mg PO QID@09,13,17,21 05/03/20 [History] Furosemide [Lasix] 40 mg PO BID@0600,1400 09/06/20 [History] Atorvastatin [Lipitor] 80 mg PO HS@209910/23/20 [History] Metoprolol Tartrate [Lopressor] 12.5 mg PO DAILY@0900 12/14/20 [History] methocarbamoL [Robaxin] 500 mg PO DAILY@0900 03/04/21 [History] traZODone HCL 150 mg PO HS@209905/01/21 [History] Acetaminophen Tab [Tylenol] 1,000 mg PO Q6HR PRN 12/06/22 [History] Clopidogrel [Plavix] 75 mg PO DAILY@0900 12/06/22 [History] Divalproex [Depakote] 500 mg PO BID@0900,209912/06/22 [History] Insulin Glargine,Hum.rec.anlog [Lantus Solostar Pen] 40 units SQ HS@209912/06/22 [History] Insulin Lispro [humaLOG Kwikpen] See Protocol SQ ACHS 12/06/22 [History] Ipratropium-Albuterol Nebulize [Duoneb 0.5 mg-3 mg/3 ml Soln] 3 ml INHALATION RT-Q4H PRN 12/06/22 [History] Mirtazapine 7.5 mg PO HS@209912/06/22 [History] Ondansetron [Zofran] 4 mg PO Q6H PRN 12/06/22 [History] Pregabalin [Lyrica] 225 mg PO DAILY@0912/06/22 [History] Scopolamine [Scopolamine 1 MG/72 HR patch] 1 patch TRANSDERM Q72H 12/06/22 [History] Albuterol Inhaler [Ventolin Hfa Inhaler] 2 puff INHALATION RT-QID each 12/07/22 [Rx] Famotidine [Pepcid] 20 mg PO BID #0 tab 12/07/22 [Rx] INSULIN ASPART (NovoLOG) [NovoLOG (formulary)] 10 unit SQ TID-W/MEALS each 12/07/22 [Rx] Follow up Appointment(s)/Referral(s): Nadira Montalvo MD [STAFF PHYSICIAN] - 1 Week Radha Ortiz MD [Primary Care Provider] - 1-2 days Idalia Waddell MD [STAFF PHYSICIAN] - 1 Week (child care director) Activity/Diet/Wound Care/Special Instructions: low carbohydrate diet activity is as tolerated We recommend to check her glucoses 4 times a day, before each meal and at bedtime, give the results in a log book and bring it to your doctor on your appointment date If your glucose less than 70 or more than 400, then call 911 and come to emergency room
--- NOTE | 2022-12-07 11:44 | P.PN ---
Subjective Progress Note Date: 12/07/22 This is a 57-year-old male patient has a history of coronary disease with previous stent placement, seizures, hyperlipidemia, hypertension, history of lung cancer with history of lobectomy of the right middle lobe, former smoker, CVA 3 with left-sided weakness and decreased mobility, diabetes mellitus, p revious history of intractable nausea vomiting diarrhea. Previous EGD December 2021 revealed erosive gastritis, mild duodenitis, maintained on Protonix. He presented here to the emergency room early this morning with complaints of nausea vomiting diarrhea for 5 days. Emergency room reported O2 saturations in the 80s on room air and was placed on 2 L nasal cannula and we are consulted for the same. Chest x-ray reveals no acute pulmonary process. Abdominal x-ray revealed nonacute abdomen. Arterial blood gases on room air revealed a pO2 of 52, pCO2 56, pH 7.42. White count 7.5. Hemoglobin 13.3. Sodium 135. Potassium 4.2. Bicarb 37. BUN 12. Creatinine 0.59. Blood glucose 320. Lipase 236. Gibbs virus by PCR positive. He is seen today in consultation on the regular medical floor. He is currently sitting up in bed. Somewhat drowsy. Poor historian. Good O2 saturations in the upper 90s on 2 L/m per nasal cannula. Afebrile. Hemodynamically stable. Patient is seen today 12/07/2022 in follow-up on the regular medical floor. He is much more awake and alert today. Oriented 3. Denies any worsening shortness of breath, cough or congestion. Maintaining good O2 saturations in the 90s on 2 L nasal cannula. Afebrile. Hemodynamically stable. White count 7.0. Hemoglobin 11.0. Platelets 217. Sodium 135. Potassium 4.3. Bicarb 33. BUN 16. Creatinine 0.8. Glucose 388. He is continued on Symbicort, albuterol, IV Solu-Medrol. Heparin for DVT prophylaxis. Objective - Vital Signs Vital signs: Vital Signs Temp 97.7 F 12/07/22 07:00 Pulse 87 12/07/22 07:00 Resp 20 12/07/22 07:00 BP 114/70 12/07/22 07:00 Pulse Ox 94 L 12/07/22 07:53 FiO2 Intake & Output 12/06/22 12/07/22 12/07/22 18:59 06:59 18:59 Intake Total 790 360 Balance 790 360 Weight 142.882 kg Intake: Oral 790 360 Other: Voiding Method Toilet # Voids 2 2 # Bowel Movements 2 - Exam GENERAL EXAM: Awake, alert, obese, 57-year-old male, on 2 L nasal cannula,, comfortable in no apparent distress. HEAD: Normocephalic. EYES: Normal reaction of pupils, equal size. NOSE: Clear with pink turbinates. THROAT: No erythema or exudates. NECK: No masses, no JVD. CHEST: No chest wall deformity. LUNGS: Equal air entry with no crackles, wheeze, rhonchi or dullness. CVS: S1 and S2 normal with no audible murmur, regular rhythm. ABDOMEN: No hepatosplenomegaly, normal bowel sounds, no guarding or rigidity. SPINE: No scoliosis or deformity SKIN: No rashes CENTRAL NERVOUS SYSTEM: No focal deficits, tone is normal in all 4 extremities. EXTREMITIES: There is no peripheral edema. No clubbing, no cyanosis. Peripheral pulses are intact. - Labs CBC & Chem 7: 12/07/22 05:03 12/07/22 05:03 Labs: Abnormal Lab Results - Last 24 Hours (Table) 12/06/22 12/06/22 12/06/22 Range/Units 12:25 17:25 17:27 RBC (4.40-5.60) X 10*6/uL Hgb (13.0-17.0) g/dL Hct (39.6-50.0) % MCHC (32.0-37.0) g/dL RDW (11.5-14.5) % Lymphocytes # (0.90-5.00) X 10*3/uL Eosinophils # (0.04-0.35) X 10*3/uL Chloride (96-109) mmol/L Carbon Dioxide (20.0-27.5) mmol/L Anion Gap (10.00-18.00) mmol/L Glucose (70-110) mg/dL POC Glucose (mg/dL) 419 H >600 H 510 H (70-110) mg/dL Calcium (8.7-10.3) mg/dL 12/06/22 12/06/22 12/07/22 Range/Units 21:10 23:53 05:03 RBC 3.94 L (4.40-5.60) X 10*6/uL Hgb 11.0 L (13.0-17.0) g/dL Hct 35.6 L (39.6-50.0) % MCHC 30.9 L (32.0-37.0) g/dL RDW 15.0 H (11.5-14.5) % Lymphocytes # 0.55 L (0.90-5.00) X 10*3/uL Eosinophils # 0 L (0.04-0.35) X 10*3/uL Chloride (96-109) mmol/L Carbon Dioxide (20.0-27.5) mmol/L Anion Gap (10.00-18.00) mmol/L Glucose (70-110) mg/dL POC Glucose (mg/dL) 416 H 388 H (70-110) mg/dL Calcium (8.7-10.3) mg/dL 12/07/22 12/07/22 Range/Units 05:03 05:58 RBC (4.40-5.60) X 10*6/uL Hgb (13.0-17.0) g/dL Hct (39.6-50.0) % MCHC (32.0-37.0) g/dL RDW (11.5-14.5) % Lymphocytes # (0.90-5.00) X 10*3/uL Eosinophils # (0.04-0.35) X 10*3/uL Chloride 93 L (96-109) mmol/L Carbon Dioxide 33.1 H (20.0-27.5) mmol/L Anion Gap 8.90 L (10.00-18.00) mmol/L Glucose 388 H (70-110) mg/dL POC Glucose (mg/dL) 447 H (70-110) mg/dL Calcium 8.3 L (8.7-10.3) mg/dL Assessment and Plan Assessment: Acute on chronic hypoxic/hypercapnic respiratory failure secondary to acute exacerbation of COPD. Chest x-ray shows no acute pulmonary process Altered mental status secondary to above, recovered COVID-19 infection with mainly GI symptoms, no evidence of COVID-19 pneumonia History of dementia History of non-small cell lung cancer with status post right middle lobe lobectomy History of CVA 3 with residual left-sided weakness Hyperlipidemia Hypertension Coronary disease with previous stent placement History seizures Diabetes mellitus, type II Obesity History of alcohol abuse Poor overall functional performance based on the above-mentioned multiple comorbidities, resides in [facility] Plan: The patient was seen and evaluated Labs and medications reviewed Anxious to return to ECF for rehabilitation Cleared for discharge from the pulmonary standpoint Continue his home pulmonary medications and oxygen as needed Complete a Medrol Dosepak Follow-up in our office in 1-2 weeks' I have personally seen and examined the patient, performed the documentation and the assessment and plan as written. Number of minutes spent on the visit: 10.
[2022-12-07] MEDS: HYDROcodone/APAP 5-325MG 1 EACH TAB PO PRN (11:45)
[2022-12-07 11:52] LABS: Glucose,Whole Blood 295 mg/dL (70-110)
[2022-12-07] MEDS ORDERED: INSULIN ASPART (NovoLOG) 100 UNIT/ML VIAL SQ SCH (12:30)
[2022-12-07] MEDS ORDERED: FAMOTIDINE 20 MG TAB PO SCH (21:00)
[2022-12-09] MEDS ORDERED: SCOPOLAMINE 1 MG/72 HR PATCH TRANSDERM SCH (09:00)
--- NOTE | 2022-12-09 14:55 | P.PN ---
Subjective Progress Note Date: 12/07/22 Principal diagnosis: Left thigh/gluteal wound Patient is a 57-year-old male with a past medical history significant for COPD diabetes mellitus GERD hypertension hyperlipidemia seizure disorder and coronary artery disease previous history of lung cancer with the right middle lobe lobectomy patient mention he recently did have a fall and has developed a hematoma to the left posterior thigh/gluteal area , status post drainage at the outside facility and patient presented to hospital with shortness of breath has been diagnosed with a covid On today's evaluation that is 12/07/2022, patient denies having any fever or chills, the patient is breathing comfortably on room air patient denies having any chest pain occasional cough no abdominal pain and no pain to the left gluteal/thigh wound area with no drainage Objective - Vital Signs Vital signs: Vital Signs Temp 97.7 F 12/07/22 07:00 Pulse 87 12/07/22 07:00 Resp 20 12/07/22 07:00 BP 114/70 12/07/22 07:00 Pulse Ox 94 L 12/07/22 07:53 FiO2 Intake & Output 12/06/22 12/07/22 12/07/22 18:59 06:59 18:59 Intake Total 790 360 Balance 790 360 Weight 142.882 kg Intake: Oral 790 360 Other: Voiding Method Toilet # Voids 2 2 # Bowel Movements 2 - Exam GENERAL DESCRIPTION: Middle-age male up in bed in no distress RESPIRATORY SYSTEM: Unlabored breathing , decreased breath sounds at bases HEART: S1 S2 regular rate and rhythm , ABDOMEN: Soft , no tenderness EXTREMITIES: Left thigh/gluteal area did have a open wound with no slough tissue no surrounding redness - Labs CBC & Chem 7: 12/07/22 05:03 12/07/22 05:03 Labs: Abnormal Lab Results - Last 24 Hours (Table) 12/06/22 12/06/22 12/06/22 Range/Units 12:25 17:25 17:27 RBC (4.40-5.60) X 10*6/uL Hgb (13.0-17.0) g/dL Hct (39.6-50.0) % MCHC (32.0-37.0) g/dL RDW (11.5-14.5) % Lymphocytes # (0.90-5.00) X 10*3/uL Eosinophils # (0.04-0.35) X 10*3/uL Chloride (96-109) mmol/L Carbon Dioxide (20.0-27.5) mmol/L Anion Gap (10.00-18.00) mmol/L Glucose (70-110) mg/dL POC Glucose (mg/dL) 419 H >600 H 510 H (70-110) mg/dL Calcium (8.7-10.3) mg/dL 12/06/22 12/06/22 12/07/22 Range/Units 21:10 23:53 05:03 RBC 3.94 L (4.40-5.60) X 10*6/uL Hgb 11.0 L (13.0-17.0) g/dL Hct 35.6 L (39.6-50.0) % MCHC 30.9 L (32.0-37.0) g/dL RDW 15.0 H (11.5-14.5) % Lymphocytes # 0.55 L (0.90-5.00) X 10*3/uL Eosinophils # 0 L (0.04-0.35) X 10*3/uL Chloride (96-109) mmol/L Carbon Dioxide (20.0-27.5) mmol/L Anion Gap (10.00-18.00) mmol/L Glucose (70-110) mg/dL POC Glucose (mg/dL) 416 H 388 H (70-110) mg/dL Calcium (8.7-10.3) mg/dL 12/07/22 12/07/22 Range/Units 05:03 05:58 RBC (4.40-5.60) X 10*6/uL Hgb (13.0-17.0) g/dL Hct (39.6-50.0) % MCHC (32.0-37.0) g/dL RDW (11.5-14.5) % Lymphocytes # (0.90-5.00) X 10*3/uL Eosinophils # (0.04-0.35) X 10*3/uL Chloride 93 L (96-109) mmol/L Carbon Dioxide 33.1 H (20.0-27.5) mmol/L Anion Gap 8.90 L (10.00-18.00) mmol/L Glucose 388 H (70-110) mg/dL POC Glucose (mg/dL) 447 H (70-110) mg/dL Calcium 8.3 L (8.7-10.3) mg/dL Assessment and Plan (1) Unspecified open wound, left thigh, subsequent encounter Status: Acute Code(s): S71.102D - UNSPECIFIED OPEN WOUND, LEFT THIGH, SUBSEQUENT ENCOUNTER SNOMED Code(s): 30383627323327423 (2) COVID-19 Status: Acute Code(s): U07.1 - COVID-19 SNOMED Code(s): 360545046 Plan: 1patient with a recent history of fall with hematoma to the left gluteal/upper posterior thigh area apparently did have drainage done at [facility] however the area does not look inflamed no purulent drainage was noticed patient not running any fever and his white count is normal clinically not behaving as an abscess or cellulitis hence recommending no antibiotic therapy, her local wound care with Aquacel silver packing of the wound to change every 48-hour discussed with the patient RN. 2patient did tested positive for COVID-19 however the patient is not hypoxic or need for supplemental oxygen chest x-ray was negative for any acute cardiopul monary process treatment will be mostly supportive no need for remdesivir. Time with Patient: Less than 30
== END 2022-12-07 13:45 ==
LOC: EC 04:28 → 6NMEDSUR 06:04
PROVIDERS: ADMIT Internal Medicine; ATTEND Internal Medicine
DX: K52.9 Noninfective gastroenteritis and colitis, unspecified (principal); J96.02 Acute respiratory failure with hypercapnia; J96.01 Acute respiratory failure with hypoxia; J44.1 Chronic obstructive pulmonary disease with (acute) exacerbation; U07.1 COVID-19; E11.65 Type 2 diabetes mellitus with hyperglycemia; I25.10 Atherosclerotic heart disease of native coronary artery without angina pectoris; J44.9 Chronic obstructive pulmonary disease, unspecified; K21.9 Gastro-esophageal reflux disease without esophagitis; E78.5 Hyperlipidemia, unspecified; I10 Essential (primary) hypertension; G47.30 Sleep apnea, unspecified; E11.40 Type 2 diabetes mellitus with diabetic neuropathy, unspecified; G40.909 Epilepsy, unspecified, not intractable, without status epilepticus; F03.90 Unspecified dementia, unspecified severity, without behavioral disturbance, psychotic disturbance, mood disturbance, and anxiety; S70.12XD Contusion of left thigh, subsequent encounter; W19.XXXD Unspecified fall, subsequent encounter; I69.354 Hemiplegia and hemiparesis following cerebral infarction affecting left non-dominant side; I25.2 Old myocardial infarction; E66.9 Obesity, unspecified; Z85.118 Personal history of other malignant neoplasm of bronchus and lung; Z87.891 Personal history of nicotine dependence; Z90.2 Acquired absence of lung [part of]; Z95.5 Presence of coronary angioplasty implant and graft; Z79.84 Long term (current) use of oral hypoglycemic drugs; Z79.4 Long term (current) use of insulin; Z79.02 Long term (current) use of antithrombotics/antiplatelets; Z79.899 Other long term (current) drug therapy
CPT/HCPCS: 96372 ×2; 96375 ×3; 96376; 96361; 96374; 99285; 36415; 94640 ×4; 36600; 94760; 93005; 97162; 97166; 80053; 80048; 82805; 83690; 85025 ×2; 83036; 87635; 71046; 74018; G0378 ×2; J1100; J2765; J2920 ×2; J7509; C9113

== ENCOUNTER 2023-03-13 09:54 | Emergency (ER) | payer MEDICARE, OTHER ==
[2023-03-13 09:59] VITALS: TEMP 98.9
[2023-03-13 10:42] LABS: Basophils # (A) 0.1 k/uL (0-0.2); Basophils % (A) 1 %; Eosinophils # (A) 0.1 k/uL (0-0.7); Eosinophils % (A) 1 %; HCT 36.9 % (39.0-53.0); HGB 12.6 gm/dL (13.0-17.5); Lymphocytes # (A) 2.2 k/uL (1.0-4.8); Lymphocytes % (A) 23 %; MCH 30.1 pg (25.0-35.0); MCHC 34.1 g/dL (31.0-37.0); MCV 88.1 fL (80.0-100.0); Mean Platelet Volume 7.7; Monocytes # (A) 0.6 k/uL (0-1.0); Monocytes % (A) 6 %; Neutrophils # (A) 6.6 k/uL (1.3-7.7); Neutrophils % (A) 68 %; Platelet Count 221 k/uL (150-450); RBC 4.19 m/uL (4.30-5.90); RDW 14.6 % (11.5-15.5); WBC 9.7 k/uL (3.8-10.6)
--- NOTE | 2023-03-13 11:00 | ED ---
Seizure HPI - General Chief Complaint: Seizure Stated Complaint: seizure Time Seen by Provider: 03/13/23 09:57 Source: patient, EMS, RN notes reviewed Mode of arrival: EMS Limitations: no limitations - History of Present Illness Initial Comments: 57-year-old male presents emergency Department with chief complaint of seizure. Patient presents via EMS from [facility] on the [place]. Patient reportedly was convulsing patient does have a history of seizures. Patient did complain of a headache currently and states he believes he had a before the seizure. Patient has a focal weakness no fevers chills patient states she's been at [facility] for several months for rehab. - Related Data Home Medications Medication Instructions Recorded Confirmed Linagliptin [Tradjenta] 5 mg PO DAILY@0900 05/30/19 12/06/22 rOPINIRole HCL [Requip] 3 mg PO TID@0900,1300,209905/30/19 12/06/22 Montelukast [Singulair] 10 mg PO HS@209907/21/19 12/06/22 Potassium Chloride [K-Tab ER] 20 meq PO BID@0900,2100 02/12/20 12/06/22 levETIRAcetam [Keppra] 750 mg PO QID@,,,05/03/20 12/06/22 Furosemide [Lasix] 40 mg PO BID@0600,1400 09/06/20 12/06/22 Atorvastatin [Lipitor] 80 mg PO HS@2100 10/23/20 12/06/22 Metoprolol Tartrate [Lopressor] 12.5 mg PO DAILY@0900 12/14/20 12/06/22 methocarbamoL [Robaxin] 500 mg PO DAILY@0900 03/04/21 12/06/22 traZODone HCL 150 mg PO HS@2100 05/01/21 12/06/22 Acetaminophen Tab [Tylenol] 1,000 mg PO Q6HR PRN 12/06/22 12/06/22 Clopidogrel [Plavix] 75 mg PO DAILY@0900 12/06/22 12/06/22 Divalproex [Depakote] 500 mg PO BID@0900,2100 12/06/22 12/06/22 Insulin Glargine,Hum.rec.anlog 40 units SQ HS@209912/06/22 12/06/22 [Lantus Solostar Pen] Insulin Lispro [humaLOG Kwikpen] See Protocol SQ ACHS 12/06/22 12/06/22 Ipratropium-Albuterol Nebulize 3 ml INHALATION RT-Q4H PRN 12/06/22 12/06/22 [Duoneb 0.5 mg-3 mg/3 ml Soln] Mirtazapine 7.5 mg PO HS@2100 12/06/22 12/06/22 Ondansetron [Zofran] 4 mg PO Q6H PRN 12/06/22 12/06/22 Pregabalin [Lyrica] 225 mg PO DAILY@0900 12/06/22 12/06/22 Scopolamine [Scopolamine 1 MG/72 1 patch TRANSDERM Q72H 12/06/22 12/06/22 HR patch] Previous Rx's Medication Instructions Recorded Albuterol Inhaler [Ventolin Hfa 2 puff INHALATION RT-QID each 12/07/22 Inhaler] Famotidine [Pepcid] 20 mg PO BID #0 tab 12/07/22 INSULIN ASPART (NovoLOG) [NovoLOG 0 unit SQ ACHS each 12/07/22 (formulary)] INSULIN ASPART (NovoLOG) [NovoLOG 10 unit SQ TID-W/MEALS each 12/07/22 (formulary)] Tiotropium 2.5 Mcg/Puff [Spiriva 2 puff INHALATION DAILY PRN each 12/07/22 Respimat 2.5 Mcg] methylPREDNISolone Dose Pack 4 mg PO DIRECTED #1 packet 12/07/22 [Medrol Dose Pack] Allergies Allergy/AdvReac Type Severity Reaction Status Date / Time baclofen Allergy Unknown - Verified 12/06/22 10:41 Patient denies cyclobenzaprine Allergy Unknown - Verified 12/06/22 10:41 [From Flexeril] Patient denies Review of Systems ROS Statement: Those systems with pertinent positive or pertinent negative responses have been documented in the HPI. ROS Other: All systems not noted in ROS Statement are negative. Past Medical History Past Medical History: Coronary Artery Disease (CAD), Cancer, COPD, CVA/TIA, Diabetes Mellitus, GERD/Reflux, Hyperlipidemia, Hypertension, Myocardial Infarction (OH), Osteoarthritis (OA), Seizure Disorder, Sleep Apnea/CPAP/BIPAP Additional Past Medical History / Comment(s): LAST SEIZURE 2018; lumbar radiculopathy; neuropathy; no CPAP needed per recent sleep study, hx. lung cancer, cellulitis of both lower legs 2020 Last Myocardial Infarction Date:: 10/22/10 History of Any Multi-Drug Resistant Organisms: None Reported Past Surgical History: Back Surgery, Cholecystectomy, Heart Catheterization With Stent Additional Past Surgical History / Comment(s): LAMINECTOMY ,fusion,spinal stimulator LEFT SHOULDER sx, 07-31-15 revison thoracic laminectomy t10- t11/removal of neuro stimulator and wires removed, fused L1&2 to a cage fusion that was previously put in to L3,4,5. May 27/2018. lobectomy of right middle lung Past Anesthesia/Blood Transfusion Reactions: No Reported Reaction Date of Last Stent Placement:: 10/22/10 Past Psychological History: No Psychological Hx Reported, Depression Smoking Status: Former smoker Past Alcohol Use History: None Reported Past Drug Use History: None Reported - Past Family History Brother(s) Family Medical History: Deep Vein Thrombosis (DVT) Mother Family Medical History: Osteoarthritis (OA) Additional Family Medical History / Comment(s): psoriases, Parkinsons Father Family Medical History: Coronary Artery Disease (CAD) Additional Family Medical History / Comment(s): heart problems- quad bypass, General Exam Limitations: no limitations General appearance: alert, in no apparent distress Head exam: Present: atraumatic, normocephalic, normal inspection Eye exam: Present: normal appearance, PERRL, EOMI. Absent: scleral icterus, conjunctival injection, periorbital swelling ENT exam: Present: normal exam, mucous membranes moist Neck exam: Present: normal inspection, full ROM. Absent: tenderness, meningismus, lymphadenopathy Respiratory exam: Present: normal lung sounds bilaterally. Absent: respiratory distress, wheezes, rales, rhonchi, stridor Cardiovascular Exam: Present: regular rate, normal rhythm, normal heart sounds. Absent: systolic murmur, diastolic murmur, rubs, gallop, clicks GI/Abdominal exam: Present: soft, normal bowel sounds. Absent: distended, tenderness, guarding, rebound, rigid Neurological exam: Present: alert, oriented X3, reflexes normal. Absent: motor sensory deficit Course Vital Signs 03/13/23 09:57 Temperature 98.9 F Pulse Rate 67 Respiratory 18 Rate Blood Pressure 125/79 O2 Sat by Pulse 93 L Oximetry Medical Decision Making - Medical Decision Making Was pt. sent in by a medical professional or institution (, ASHA, LEAD PRESS OPERATOR, urgent care, hospital, or group home...) When possible be specific @ -[facility] on the [place] Did you speak to anyone other than the patient for history (EMS, parent, family, police, friend...)? What history was obtained from this source @ -No Did you review nursing and triage notes (agree or disagree)? Why? @ -I reviewed and agree with nursing and triage notes Were old charts reviewed (outside hosp., previous admission, EMS record, old EKG, old radiological studies, urgent care reports/EKG's, group home records)? Report findings @ -No old charts were reviewed Differential Diagnosis (chest pain, altered mental status, abdominal pain women, abdominal pain men, vaginal bleeding, weakness, fever, dyspnea, syncope, headache, dizziness, GI bleed, back pain, seizure, CVA, palpatations, mental health, musculoskeletal)? @ -nDifferential Seizure: Recurrent seizure disorder, febrile seizure, alcohol withdrawal, stimulants, meningitis, encephalitis, intercranial hemorrhage, intracranial tumor, stroke, eclampsia, thyrotoxicosis, hypocalcemia, hyponatremia, hypernatremia, hypomagnesemia, psychogenic, this is not meant to be an all-inclusive list. ble EKG interpreted by me (3pts min.). @ -As above X-rays interpreted by me (1pt min.). @ -None done CT interpreted by me (1pt min.). @ -CT of brain shows age-related atrophy U/S interpreted by me (1pt. min.). @ -None done What testing was considered but not performed or refused? (CT, X-rays, U/S, labs)? Why? @ -None What meds were considered but not given or refused? Why? @ -None Did you discuss the management of the patient with other professionals (professionals i.e. ASHA Miller, LEAD PRESS OPERATOR, lab, RT, psych nurse, administrator social welfare, spring fitter, teacher, major gifts officer, case specialist)? Give summary @ -No Was smoking cessation discussed for >3mins.? @ -No Was critical care preformed (if so, how long)? @ -No Were there social determinants of health that impacted care today? How? (Homelessness, low income, unemployed, alcoholism, drug addiction, transportation, low edu. Level, literacy, decrease access to med. care, retirement, rehab)? @ -No Was there de-escalation of care discussed even if they declined (Discuss DNR or withdrawal of care, Hospice)? DNR status @ -No What co-morbidities impacted this encounter? (DM, HTN, Smoking, COPD, CAD, Cancer, CVA, ARF, Chemo, Hep., AIDS, mental health diagnosis, sleep apnea, morbid obesity)? @ -COPD, seizures Was patient admitted / discharged? Hospital course, mention meds given and route, prescriptions, significant lab abnormalities, going to OR and other pertinent info. @ -Discharge patient does have mild hypokalemia replacement was ordered. Patient will recheck and group home. Patient otherwise stable and at baseline. Patient has a history of seizures Undiagnosed new problem with uncertain prognosis? @ -No Drug Therapy requiring intensive monitoring for toxicity (Heparin, Nitro, Insulin, Cardizem)? @ -No Were any procedures done? @ -No Diagnosis/symptom? @ -Seizure, hypokalemia Acute, or Chronic, or Acute on Chronic? @ -Acute on chronic Uncomplicated (without systemic symptoms) or Complicated (systemic symptoms)? @ -Uncomplicated Side effects of treatment? @ -No Exacerbation, Progression, or Severe Exacerbation? @ -No Poses a threat to life or bodily function? How? (Chest pain, [place], [place], pneumonia, PE, COPD, DKA, ARF, appy, cholecystitis, CVA, Diverticulitis, Homicidal, Suicidal, threat to staff... and all critical care pts) @ -No - Lab Data Result diagrams: 03/13/23 10:25 03/13/23 10:25 Lab Results 03/13/23 03/13/23 Range/Units 10:25 10:25 WBC 9.7 (3.8-10.6) k/uL RBC 4.19 L (4.30-5.90) m/uL Hgb 12.6 L (13.0-17.5) gm/dL Hct 36.9 L (39.0-53.0) % MCV 88.1 (80.0-100.0) fL MCH 30.1 (25.0-35.0) pg MCHC 34.1 (31.0-37.0) g/dL RDW 14.6 (11.5-15.5) % Plt Count 221 (150-450) k/uL MPV 7.7 Neutrophils % 68 % Lymphocytes % 23 % Monocytes % 6 % Eosinophils % 1 % Basophils % 1 % Neutrophils # 6.6 (1.3-7.7) k/uL Lymphocytes # 2.2 (1.0-4.8) k/uL Monocytes # 0.6 (0-1.0) k/uL Eosinophils # 0.1 (0-0.7) k/uL Basophils # 0.1 (0-0.2) k/uL Sodium 136 L (137-145) mmol/L Potassium 2.9 L (3.5-5.1) mmol/L Chloride 85 L (98-107) mmol/L Carbon Dioxide 38 H (22-30) mmol/L Anion Gap 13 mmol/L BUN 23 H (9-20) mg/dL Creatinine 0.67 (0.66-1.25) mg/dL Est GFR (CKD-EPI)AfAm >90 (>60 ml/min/1.73 sqM) Est GFR (CKD-EPI)NonAf >90 (>60 ml/min/1.73 sqM) Glucose 251 H (74-99) mg/dL Calcium 9.4 (8.4-10.2) mg/dL Magnesium 1.8 (1.6-2.3) mg/dL Total Bilirubin 0.7 (0.2-1.3) mg/dL AST 23 (17-59) U/L ALT 18 (4-49) U/L Alkaline Phosphatase 65 (38-126) U/L Total Protein 7.1 (6.3-8.2) g/dL Albumin 4.3 (3.5-5.0) g/dL - EKG Data -: EKG Interpreted by Me EKG Comments: EKG 2009:27 sinus rhythm rate of 66 W[place] 179 QRS 107 QT/QTC 422/435 Disposition Clinical Impression: Generalized seizure, Hypokalemia Disposition: HOME SELF-CARE Condition: Stable Instructions (If sedation given, give patient instructions): Recurrent Seizures in Adults (ED) Additional Instructions: Please return to the Emergency Department if symptoms worsen or any other concerns. Is patient prescribed a controlled substance at d/c from ED?: No Referrals: Radha Ortiz MD [Primary Care Provider] - 1-2 days Time of Disposition: 11:25
[2023-03-13 11:01] LABS: ALT 18 U/L (4-49); AST 23 U/L (17-59); African American GFR (CKD) >90 (>60 ml/min/1.73 sqM); Albumin 4.3 g/dL (3.5-5.0); Alkaline Phosphatase 65 U/L (38-126); Blood Urea Nitrogen 23 mg/dL (9-20); Calcium 9.4 mg/dL (8.4-10.2); Chloride 85 mmol/L (98-107); Glucose 251 mg/dL (74-99); Magnesium 1.8 mg/dL (1.6-2.3); Non-African American GFR(CKD) >90 (>60 ml/min/1.73 sqM); Potassium 2.9 mmol/L (3.5-5.1); Sodium 136 mmol/L (137-145); Total Bilirubin 0.7 mg/dL (0.2-1.3); Total Protein 7.1 g/dL (6.3-8.2)
[2023-03-13 11:07] LABS: Anion Gap 13 mmol/L; Carbon Dioxide 38 mmol/L (22-30)
--- NOTE | 2023-03-13 11:09 | CT ---
EXAMINATION TYPE: CT brain wo con DATE OF EXAM: 03/13/2023 COMPARISON: 11/15/21 HISTORY: Seizure activity, HAMMOND CT DLP: 1188.[address] of the brain was performed. The ventricles, basal cisterns and sulci overlying the cerebral convexities demonstrate mild enlargem ent. There is no evidence for intracranial hemorrhage or sulcal effacement. There is decreased attenuation about the periventricular white matter and deep white matter of both c erebral hemispheres, compatible with chronic small vessel ischemia. Differential diagnosis does inclu de demyelination. No mass effects are seen.No midline shift. Osseous calvarium is intact. If symptoms persist consider MRI. IMPRESSION: 1. Age related atrophic and chronic small vessel ischemic change without acute intracranial process s een at this time.
[2023-03-13] MEDS ORDERED: POTASSIUM CHLORIDE ER 20 MEQ TAB.ER PO STA (11:23)
[2023-03-13 12:16] VITALS: BP 115/75; PULSE 69; RESP 15
== END 2023-03-13 13:00 | disposition home or self-care (01) ==
LOC: EC 09:54
DX: G40.909 Epilepsy, unspecified, not intractable, without status epilepticus (principal); E87.6 Hypokalemia; I25.10 Atherosclerotic heart disease of native coronary artery without angina pectoris; J44.9 Chronic obstructive pulmonary disease, unspecified; E11.9 Type 2 diabetes mellitus without complications; E78.5 Hyperlipidemia, unspecified; I10 Essential (primary) hypertension; I25.2 Old myocardial infarction; M19.90 Unspecified osteoarthritis, unspecified site; G47.30 Sleep apnea, unspecified; Z87.891 Personal history of nicotine dependence; Z86.73 Personal history of transient ischemic attack (TIA), and cerebral infarction without residual deficits; Z79.4 Long term (current) use of insulin; Z79.02 Long term (current) use of antithrombotics/antiplatelets; Z79.84 Long term (current) use of oral hypoglycemic drugs; Z79.899 Other long term (current) drug therapy; Z88.6 Allergy status to analgesic agent; Z88.8 Allergy status to other drugs, medicaments and biological substances
CPT/HCPCS: 36415; 70450; 80053; 83735; 85025; 93005; 99284

== ENCOUNTER 2023-09-15 15:36 | Emergency (ER) | payer MEDICARE, OTHER ==
[2023-09-15] MEDS ORDERED: MORPHINE SULFATE 4 MG/ML SYRINGE IV STA (15:47)
[2023-09-15 16:20] VITALS: RESP 18
[2023-09-15 16:20] LABS: Basophils # (A) 0.1 k/uL (0-0.2); Basophils % (A) 1 %; Eosinophils # (A) 0.1 k/uL (0-0.7); Eosinophils % (A) 1 %; HGB 13.9 gm/dL (13.0-17.5); Lymphocytes % (A) 20 %; MCH 29.7 pg (25.0-35.0); MCHC 34.7 g/dL (31.0-37.0); MCV 85.7 fL (80.0-100.0); Mean Platelet Volume 8.7; Monocytes # (A) 0.5 k/uL (0-1.0); Monocytes % (A) 5 %; Neutrophils % (A) 71 %; Platelet Count 197 k/uL (150-450); Poikilocytosis Slight; RBC 4.67 m/uL (4.30-5.90); RDW 15.4 % (11.5-15.5); WBC 9.8 k/uL (3.8-10.6)
[2023-09-15 16:39] LABS: ALT 31 U/L (4-49); AST 32 U/L (17-59); African American GFR (CKD) >90 (>60 ml/min/1.73 sqM); Albumin 4.2 g/dL (3.5-5.0); Alkaline Phosphatase 135 U/L (38-126); Anion Gap 13 mmol/L; Blood Urea Nitrogen 16 mg/dL (9-20); Calcium 8.9 mg/dL (8.4-10.2); Carbon Dioxide 36 mmol/L (22-30); Chloride 86 mmol/L (98-107); Glucose 389 mg/dL (74-99); Non-African American GFR(CKD) >90 (>60 ml/min/1.73 sqM); Sodium 135 mmol/L (137-145); Total Bilirubin 0.9 mg/dL (0.2-1.3); Total Protein 6.8 g/dL (6.3-8.2)
[2023-09-15 16:48] LABS: Potassium 2.7 mmol/L (3.5-5.1)
--- NOTE | 2023-09-15 17:04 | CT ---
EXAMINATION TYPE: CT brain cspine wo con CT DLP: 1634 mGycm, Automated exposure control for dose reduction was used. DATE OF EXAM: 09/15/2023 4:31 PM COMPARISON: 03/13/2023.. CLINICAL INDICATION:Male, 57 years old with history of fall injury; fall TECHNIQUE: Brain: Multiple axial CT images of the brain were obtained without IV contrast. Cspine: Axial CT images from the skull base to the inferior aspect of T2 we obtained without intraven ous contrast. Coronal and sagittal reformatted images were also reviewed. FINDINGS: Brain: Extra-axial spaces: No abnormal extra-axial fluid collections. Ventricular system: Within normal limits Cerebral parenchyma: No acute intraparenchymal hemorrhage or mass effect. The wolf-white junction is well differentiated. Cerebellum: Unremarkable. Mass effect: No evidence of midline shift. Intracranial vasculature: unremarkable Soft tissues: Normal. Calvarium/osseous structures: No depressed skull fracture. Paranasal sinuses and mastoid air cells: Clear. Visualized orbits: Orbital contents are intact. Cervical spine: Fracture: None. Osseous structures: Multilevel degenerative disc disease changes with endplate spurring and disc oste ophyte complex's. Vertebral alignment: Within normal limits. Spinal canal/Neural Foramina: Disc osteophyte complexes at C4-C7. With at least mild spinal canal dieudonne nosis. Facet joint uncovertebral joint arthropathy scattered throughout the cervical spine with varyi ng degrees of neural foraminal stenosis. Neck soft tissues: Prevertebral soft tissues are within normal limits. Other: The airway is patent. The lung apices are clear. Atherosclerosis of the carotid bifurcations. IMPRESSION: 1. No acute intracranial process. 2. No evidence of cervical spine fracture. 3. Mild multilevel degenerative disc disease.
--- NOTE | 2023-09-15 17:11 | XR ---
EXAMINATION TYPE: XR Hip LT and AP Pelvis DATE OF EXAM: 09/15/2023 4:39 PM CLINICAL INDICATION:Male, 57 years old with history of fall injury; [facility] COMPARISON: None. TECHNIQUE: The left hip was examined in the frontal and lateral projections and a AP pelvis. FINDINGS: Osseous mineralization appears appropriate. Degenerative changes of the lower lumbar spine with hardware fusion changes extending to the upper sacrum on the left. Degenerative changes of the S I joints. Mild/moderate bilateral hip arthropathy. No acute fracture lucency or dislocation is seen. Moderate vascular calcifications. Some ovoid radiodensities over the left lower abdomen may be pills or other ingested material. Soft tissues are unremarkable. IMPRESSION: No evidence of acute fracture or dislocation.
--- NOTE | 2023-09-15 17:13 | XR ---
EXAMINATION TYPE: XR hand complete RT DATE OF EXAM: 09/15/2023 4:39 PM CLINICAL INDICATION:Male, 57 years old with history of fall injury; COMPARISON: None TECHNIQUE: XR hand complete RT Frontal, lateral and oblique views were obtained. FINDINGS: Normal alignment of the visualized joints. No acute osseous pathology is identified. No e vidence of soft tissue swelling. There is a remote appearing injury to the radius near the distal rad ioulnar joint. No acute fractures visualized. Joint space narrowing osteophyte formation throughout t he exam. IMPRESSION: 1. No acute osseous pathology. 2. Mild multifocal degeneration changes of the wrist and hand.
[2023-09-15] MEDS ORDERED: MORPHINE SULFATE 4 MG/ML SYRINGE IVP STA (18:23)
[2023-09-15] MEDS ORDERED: INSULIN REGULAR 100 UNIT/ML VIAL (IV) SQ STA (18:36)
[2023-09-15] MEDS ORDERED: POTASSIUM CHLORIDE ER 20 MEQ TAB.ER PO STA (18:37)
--- NOTE | 2023-09-15 18:59 | ED ---
Fall HPI - General Chief Complaint: Fall Stated Complaint: Hip pain/Fall Time Seen by Provider: 09/15/23 15:45 Source: patient, EMS Mode of arrival: EMS - History of Present Illness Initial Comments: is 57-year-old man brought to have evaluation after he had slumped to the floor from commode. The patient had felt lightheaded not sure if he had fully loss consciousness but was somewhat dazed. Patient currently denying neurologic symptoms. He does have pains to neck, hand, hip. 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 Fall Witnessed: no Place Fall Occurred: home Loss of Consciousness: unsure Prolonged Down Time?: no Symptoms Prior to Fall: dizziness Location: head, other (Hand and hip) Severity: moderate Quality: aching Associated Symptoms: headache - Related Data Home Medications Medication Instructions Recorded Confirmed Linagliptin [Tradjenta] 5 mg PO DAILY@0900 05/30/19 09/15/23 rOPINIRole HCL [Requip] 3 mg PO TID@0900,1300,2100 05/30/19 09/15/23 Montelukast [Singulair] 10 mg PO HS@2100 07/21/19 09/15/23 Potassium Chloride [K-Tab ER] 40 meq PO BID@0900,2100 02/12/20 09/15/23 levETIRAcetam [Keppra] 1,500 mg PO BID 05/03/20 09/15/23 Furosemide [Lasix] 40 mg PO BID@0900,1500 09/06/20 09/15/23 Atorvastatin [Lipitor] 80 mg PO HS@2100 10/23/20 09/15/23 Clopidogrel [Plavix] 75 mg PO DAILY@0900 12/06/22 09/15/23 Albuterol Inhaler [Ventolin Hfa 2 puff INHALATION RT-QID PRN 06/15/23 09/15/23 Inhaler] DULoxetine HCL [Cymbalta] 30 mg PO HS 06/15/23 09/15/23 Ergocalciferol (Vitamin D2) 1,250 mcg PO ANDERSON 06/15/23 09/15/23 [Drisdol (50,000 Iu)] Insulin Aspart [NovoLOG Flexpen] 12 units SQ TID-W/MEALS 06/15/23 09/15/23 Insulin Aspart [NovoLOG Flexpen] See Protocol SQ TID-W/MEALS PRN 06/15/23 09/15/23 Insulin Glargine,Hum.rec.anlog 40 unit SQ HS 06/15/23 09/15/23 [Basaglar Kwikpen U-100] Midodrine HCl [ProAmatine] 10 mg PO TID PRN 06/15/23 09/15/23 Ondansetron Odt [Zofran Odt] 4 mg PO Q6H PRN 06/15/23 09/15/23 Pregabalin [Lyrica] 75 mg PO QID 06/15/23 09/15/23 metOLazone [Zaroxolyn] 5 mg PO Q48H 06/15/23 09/15/23 Amitriptyline HCl [Elavil] 10 mg PO HS 09/15/23 09/15/23 Empagliflozin [Jardiance] 10 mg PO DAILY 09/15/23 09/15/23 Fluconazole [Diflucan] 100 mg PO DIRECTED 09/15/23 09/15/23 Allergies Allergy/AdvReac Type Severity Reaction Status Date / Time No Known Allergies Allergy Verified 09/15/23 16:45 Review of Systems ROS Statement: Those systems with pertinent positive or pertinent negative responses have been documented in the HPI. ROS Other: All systems not noted in ROS Statement are negative. Constitutional: Reports: weakness. Denies: fever, chills Respiratory: Denies: cough, dyspnea Cardiovascular: Denies: chest pain, palpitations, edema Gastrointestinal: Denies: abdominal pain, nausea, vomiting Genitourinary: Denies: dysuria, hematuria Musculoskeletal: Reports: arthralgia. Denies: back pain Skin: Denies: rash Neurological: Reports: headache. Denies: weakness, numbness Past Medical History Past Medical History: Coronary Artery Disease (CAD), Cancer, COPD, CVA/TIA, Diabetes Mellitus, GERD/Reflux, Hyperlipidemia, Hypertension, Myocardial Infarction (ID), Osteoarthritis (OA), Seizure Disorder, Sleep Apnea/CPAP/BIPAP Additional Past Medical History / Comment(s): LAST SEIZURE 2019; lumbar radiculo arnie; neuropathy; no CPAP needed per recent sleep study, hx. lung cancer, cellulitis of both lower legs 2020 Last Myocardial Infarction Date:: 10/22/10 History of Any Multi-Drug Resistant Organisms: None Reported Past Surgical History: Back Surgery, Cholecystectomy, Heart Catheterization With Stent Additional Past Surgical History / Comment(s): LAMINECTOMY ,fusion,spinal stimulator LEFT SHOULDER sx, 07-31-15 revison thoracic laminectomy t10- t11/removal of neuro stimulator and wires removed, fused L1&2 to a cage fusion that was previously put in to L3,4,5. May 27/2018. lobectomy of right middle lung Past Anesthesia/Blood Transfusion Reactions: No Reported Reaction Date of Last Stent Placement:: 10/22/10 Past Psychological History: No Psychological Hx Reported, Depression Smoking Status: Former smoker Past Alcohol Use History: None Reported Past Drug Use History: None Reported - Past Family History Brother(s) Family Medical History: Deep Vein Thrombosis (DVT) Mother Family Medical History: Osteoarthritis (OA) Additional Family Medical History / Comment(s): psoriases, Parkinsons Father Family Medical History: Coronary Artery Disease (CAD) Additional Family Medical History / Comment(s): heart problems- quad bypass, General Exam Limitations: no limitations General appearance: alert, in no apparent distress Head exam: Present: atraumatic, normocephalic Eye exam: Present: normal appearance, PERRL, EOMI. Absent: scleral icterus, conjunctival injection ENT exam: Present: normal oropharynx Neck exam: Present: tenderness, other (C-collar). Absent: full ROM Respiratory exam: Present: normal lung sounds bilaterally. Absent: respiratory distress, wheezes, rales, rhonchi, stridor, chest wall tenderness, accessory muscle use Cardiovascular Exam: Present: regular rate, normal rhythm, normal heart sounds. Absent: systolic murmur, diastolic murmur, rubs, gallop GI/Abdominal exam: Present: soft. Absent: distended, tenderness, guarding, rebound, rigid, mass Extremities exam: Present: tenderness (Contusion to hand with moderate tenderness, no obvious deformity), normal capillary refill. Absent: pedal edema, calf tenderness Back exam: Present: normal inspection. Absent: CVA tenderness (R), CVA tenderness (L) Neurological exam: Present: alert Skin exam: Present: warm, dry, intact, normal color. Absent: rash Course Vital Signs 09/15/23 09/15/23 09/15/23 15:56 18:30 19:34 Temperature 98.0 F 97.9 F Pulse Rate 84 93 93 Respiratory 18 18 Rate Blood Pressure 99/53 108/72 91/58 O2 Sat by Pulse 96 95 95 Oximetry 09/15/23 20:33 Temperature Pulse Rate 91 Respiratory Rate Blood Pressure 147/77 O2 Sat by Pulse Oximetry Medical Decision Making - Medical Decision Making The patient had CT of the brain and C-spine which I interpreted as negative for acute bony injury or intracranial hemorrhage. The patient had x-ray of the hip and pelvis which I interpreted as negative for acute bony injury. The patient had x-ray of the hand which I interpreted as negative for fracture dislocation. Was pt. sent in by a medical professional or institution (, PA, OTHER SPATIAL SCIENTIST, urgent care, hospital, or fdc...) When possible be specific @ -[No] Did you speak to anyone other than the patient for history (EMS, parent, family, police, friend...)? What history was obtained from this source @ -[No] Did you review nursing and triage notes (agree or disagree)? Why? @ -[I reviewed and agree with nursing and triage notes] Were old charts reviewed (outside hosp., previous admission, EMS record, old EKG, old radiological studies, urgent care reports/EKG's, fdc records)? Report findings @ -[No old charts were reviewed] Differential Diagnosis (chest pain, altered mental status, abdominal pain women, abdominal pain men, vaginal bleeding, weakness, fever, dyspnea, syncope, headache, dizziness, GI bleed, back pain, seizure, CVA, palpatations, mental health, musculoskeletal)? @ -[Differential Musculoskeletal Muscular strain, contusion, ligament sprain, fracture, arthritis, septic arthritis, bursitis, cellulitis, muscle spasm, nerve compression, DVT, arterial occlusion, herpes zoster, electrolyte abnormality, tumor.... This is not meant to be in all inclusive list EKG interpreted by me (3pts min.). @ -[I interpreted as above X-rays interpreted by me (1pt min.). @ -[I interpreted as above CT interpreted by me (1pt min.). @ -I interpreted as above U/S interpreted by me (1pt. min.). @ -[None done] What testing was considered but not performed or refused? (CT, X-rays, U/S, labs)? Why? @ -[None] What meds were considered but not given or refused? Why? @ -[None] Did you discuss the management of the patient with other professionals (professionals i.e. , PA, OTHER SPATIAL SCIENTIST, lab, RT, psych nurse, social media editor, elementary supervisor, teacher, asset protection officer, family caseworker)? Give summary @ -[No] Was smoking cessation discussed for >3mins.? @ -[No] Was critical care preformed (if so, how long)? @ -[No] Were there social determinants of health that impacted care today? How? (Homelessness, low income, unemployed, alcoholism, drug addiction, transportation, low edu. Level, literacy, decrease access to med. care, half-way, rehab)? @ -[No] Was there de-escalation of care discussed even if they declined (Discuss DNR or withdrawal of care, Hospice)? DNR status @ -[No] What co-morbidities impacted this encounter? (DM, HTN, Smoking, COPD, CAD, Cancer, CVA, ARF, Chemo, Hep., AIDS, mental health diagnosis, sleep apnea, morbid obesity)? @ -[None] Was patient admitted / discharged? Hospital course, mention meds given and route, prescriptions, significant lab abnormalities, going to OR and other pertinent info. @ -[Patient is a 57 rolled man here to have evaluation after having a ground- level fall. The patient with moderate tenderness to number of locations, he had radiologic studies negative for acute severe injury. he was given analgesic X, insulin to begin correcting blood sugar, potassium supplementation. Patient feeling better following medication and would like to go home. Undiagnosed new problem with uncertain prognosis? @ -[No] Drug Therapy requiring intensive monitoring for toxicity (Heparin, Nitro, Insulin, Cardizem)? @ -[No] Were any procedures done? @ -[No] Diagnosis/symptom? @ -[Fall. Multiple contusions, hand, hip Diabetic hyperglycemia Acute hypokalemia Acute, or Chronic, or Acute on Chronic? @ -[Acute Uncomplicated (without systemic symptoms) or Complicated (systemic symptoms)? @ -[Uncomplicated Side effects of treatment? @ -[No] Exacerbation, Progression, or Severe Exacerbation? @ -[No] Poses a threat to life or bodily function? How? (Chest pain, USA, ID, pneumonia, PE, COPD, DKA, ARF, appy, cholecystitis, CVA, Diverticulitis, Homicidal, Suicidal, threat to staff... and all critical care pts) @ -[No] - Lab Data Result diagrams: 09/15/23 16:01 09/15/23 16:01 Lab Results 09/15/23 09/15/23 09/15/23 Range/Units 16:01 16:01 19:02 WBC 9.8 (3.8-10.6) k/uL RBC 4.67 (4.30-5.90) m/uL Hgb 13.9 (13.0-17.5) gm/dL Hct 40.0 (39.0-53.0) % MCV 85.7 (80.0-100.0) fL MCH 29.7 (25.0-35.0) pg MCHC 34.7 (31.0-37.0) g/dL RDW 15.4 (11.5-15.5) % Plt Count 197 (150-450) k/uL MPV 8.7 Neutrophils % 71 % Lymphocytes % 20 % Monocytes % 5 % Eosinophils % 1 % Basophils % 1 % Neutrophils # 7.0 (1.3-7.7) k/uL Lymphocytes # 2.0 (1.0-4.8) k/uL Monocytes # 0.5 (0-1.0) k/uL Eosinophils # 0.1 (0-0.7) k/uL Basophils # 0.1 (0-0.2) k/uL Poikilocytosis Slight Sodium 135 L (137-145) mmol/L Potassium 2.7 L* (3.5-5.1) mmol/L Chloride 86 L (98-107) mmol/L Carbon Dioxide 36 H (22-30) mmol/L Anion Gap 13 mmol/L BUN 16 (9-20) mg/dL Creatinine 0.79 (0.66-1.25) mg/dL Est GFR (CKD-EPI)AfAm >90 (>60 ml/min/1.73 sqM) Est GFR (CKD-EPI)NonAf >90 (>60 ml/min/1.73 sqM) Glucose 389 H (74-99) mg/dL POC Glucose (mg/dL) 364 H (70-110) mg/dL POC Glu Hoof And Shoe Inspector ID Mary Anne Bell Calcium 8.9 (8.4-10.2) mg/dL Total Bilirubin 0.9 (0.2-1.3) mg/dL AST 32 (17-59) U/L ALT 31 (4-49) U/L Alkaline Phosphatase 135 H (38-126) U/L Total Protein 6.8 (6.3-8.2) g/dL Albumin 4.2 (3.5-5.0) g/dL Disposition Clinical Impression: Fall, Hypokalemia Disposition: HOME SELF-CARE Condition: Good Instructions (If sedation given, give patient instructions): Hypokalemia (ED), Fall Prevention (ED) Is patient prescribed a controlled substance at d/c from ED?: No Referrals: Radha Ortiz MD [Primary Care Provider] - 1-2 days
[2023-09-15 19:08] LABS: Glucose,Whole Blood 364 mg/dL (70-110)
[2023-09-15 19:17] VITALS: TEMP 97.9
[2023-09-15] MEDS ORDERED: SODIUM CHLORIDE 0.9% 500 ML 500 ML IV STA (20:28)
[2023-09-15 20:43] VITALS: BP 147/77; PULSE 91
== END 2023-09-15 20:34 | disposition home or self-care (01) ==
LOC: EC 15:36
DX: S70.02XA Contusion of left hip, initial encounter (principal); S60.221A Contusion of right hand, initial encounter; E87.6 Hypokalemia; E78.5 Hyperlipidemia, unspecified; E11.65 Type 2 diabetes mellitus with hyperglycemia; I25.10 Atherosclerotic heart disease of native coronary artery without angina pectoris; J44.9 Chronic obstructive pulmonary disease, unspecified; I10 Essential (primary) hypertension; I25.2 Old myocardial infarction; G47.30 Sleep apnea, unspecified; Z87.891 Personal history of nicotine dependence; Z86.73 Personal history of transient ischemic attack (TIA), and cerebral infarction without residual deficits; Z79.4 Long term (current) use of insulin; Z79.899 Other long term (current) drug therapy; Z79.02 Long term (current) use of antithrombotics/antiplatelets; Z79.84 Long term (current) use of oral hypoglycemic drugs; W07.XXXA Fall from chair, initial encounter
CPT/HCPCS: 99285 ×2; 96374 ×2; 96376 ×2; 36415; 80053; 85025; 73502; 73130; 72125; 70450; J2270

== ENCOUNTER 2024-03-19 07:45 | Emergency (ER) | payer MEDICARE, OTHER ==
--- NOTE | 2024-03-19 08:04 | ED ---
Upper Extremity HPI - General Chief Complaint: Extremity Injury, Upper Stated Complaint: L hand pain Time Seen by Provider: 03/19/24 08:02 Source: patient, RN notes reviewed Mode of arrival: wheelchair Limitations: physical limitation - History of Present Illness Initial Comments: 58-year-old male presented to the ER with a chief complaint of right hand injury. Patient reports he was getting out of the shower this morning and accidentally hit his left hand on a table next to his shower. Patient is wheelchair-bound but is able to pivot to shower chair. He denies any head injury or other injuries. He does report mild paresthesias to his second left digit. No other complaints. - Related Data Home Medications Medication Instructions Recorded Confirmed Linagliptin [Tradjenta] 5 mg PO DAILY@0900 05/30/19 09/15/23 rOPINIRole HCL [Requip] 3 mg PO TID@0900,1300,2100 05/30/19 09/15/23 Montelukast [Singulair] 10 mg PO HS@2100 07/21/19 09/15/23 Potassium Chloride [K-Tab ER] 40 meq PO BID@0900,2100 02/12/20 09/15/23 levETIRAcetam [Keppra] 1,500 mg PO BID 05/03/20 09/15/23 Furosemide [Lasix] 40 mg PO BID@0900,1500 09/06/20 09/15/23 Atorvastatin [Lipitor] 80 mg PO HS@2100 10/23/20 09/15/23 Clopidogrel [Plavix] 75 mg PO DAILY@0900 12/06/22 09/15/23 Albuterol Inhaler [Ventolin Hfa 2 puff INHALATION RT-QID PRN 06/15/23 09/15/23 Inhaler] DULoxetine HCL [Cymbalta] 30 mg PO HS 06/15/23 09/15/23 Ergocalciferol (Vitamin D2) 1,250 mcg PO ANDERSON 06/15/23 09/15/23 [Drisdol (50,000 Iu)] Insulin Aspart [NovoLOG Flexpen] 12 units SQ TID-W/MEALS 06/15/23 09/15/23 Insulin Aspart [NovoLOG Flexpen] See Protocol SQ TID-W/MEALS PRN 06/15/23 09/15/23 Insulin Glargine,Hum.rec.anlog 40 unit SQ HS 06/15/23 09/15/23 [Basaglar Kwikpen U-100] Midodrine HCl [ProAmatine] 10 mg PO TID PRN 06/15/23 09/15/23 Ondansetron Odt [Zofran Odt] 4 mg PO Q6H PRN 06/15/23 09/15/23 Pregabalin [Lyrica] 75 mg PO QID 06/15/23 09/15/23 metOLazone [Zaroxolyn] 5 mg PO Q48H 06/15/23 09/15/23 Amitriptyline HCl [Elavil] 10 mg PO HS 09/15/23 09/15/23 Empagliflozin [Jardiance] 10 mg PO DAILY 09/15/23 09/15/23 Fluconazole [Diflucan] 100 mg PO DIRECTED 09/15/23 09/15/23 Allergies Allergy/AdvReac Type Severity Reaction Status Date / Time No Known Allergies Allergy Verified 03/19/24 07:54 Review of Systems ROS Statement: Those systems with pertinent positive or pertinent negative responses have been documented in the HPI. ROS Other: All systems not noted in ROS Statement are negative. Past Medical History Past Medical History: Coronary Artery Disease (CAD), Cancer, COPD, CVA/TIA, Diabetes Mellitus, GERD/Reflux, Hyperlipidemia, Hypertension, Myocardial Infarction (DE), Osteoarthritis (OA), Pneumonia, Seizure Disorder, Sleep Apnea/CPAP/BIPAP Additional Past Medical History / Comment(s): LAST SEIZURE 2018; lumbar radiculopathy; neuropathy; no CPAP needed per recent sleep study, hx. lung cancer, cellulitis of both lower legs 2020 Last Myocardial Infarction Date:: 10/22/10 History of Any Multi-Drug Resistant Organisms: None Reported Past Surgical History: Back Surgery, Cholecystectomy, Heart Catheterization With Stent Additional Past Surgical History / Comment(s): LAMINECTOMY ,fusion,spinal stimulator LEFT SHOULDER sx, 07-31-15 revison thoracic laminectomy t10- t11/removal of neuro stimulator and wires removed, fused L1&2 to a cage fusion that was previously put in to L3,4,5. May 27/2018. lobectomy of right middle lung Past Anesthesia/Blood Transfusion Reactions: No Reported Reaction Date of Last Stent Placement:: 10/22/10 Past Psychological History: Depression Smoking Status: Former smoker Past Alcohol Use History: None Reported Past Drug Use History: None Reported - Past Family History Brother(s) Family Medical History: Deep Vein Thrombosis (DVT) Mother Family Medical History: Osteoarthritis (OA) Additional Family Medical History / Comment(s): psoriases, Parkinsons Father Family Medical History: Coronary Artery Disease (CAD) Additional Family Medical History / Comment(s): heart problems- quad bypass, General Exam Limitations: no limitations General appearance: alert, in no apparent distress Respiratory exam: Present: normal lung sounds bilaterally. Absent: respiratory distress, wheezes, rales, rhonchi, stridor Cardiovascular Exam: Present: regular rate, normal rhythm, normal heart sounds. Absent: systolic murmur, diastolic murmur, rubs, gallop, clicks Extremities exam: Present: normal inspection, full ROM, tenderness (Second metacarpal. Mild edema. No bruising or erythema. 2+ left radial pulse. Sensation intact. Patient has full active range of motion.), normal capillary refill. Absent: pedal edema, joint swelling, calf tenderness Skin exam: Present: warm, dry, intact, normal color. Absent: rash Course Vital Signs 03/19/24 03/19/24 03/19/24 07:52 09:45 10:26 Temperature 98.4 F 98 F 98 F Pulse Rate 94 89 86 Respiratory 18 16 16 Rate Blood Pressure 97/59 109/77 110/81 O2 Sat by Pulse 96 98 98 Oximetry Medical Decision Making - Medical Decision Making Was pt. sent in by a medical professional or institution (, PA, CHILD CARE ASSISTANT, urgent care, hospital, or senior living...) When possible be specific @ -No Did you speak to anyone other than the patient for history (EMS, parent, family, police, friend...)? What history was obtained from this source @ -No Did you review nursing and triage notes (agree or disagree)? Why? @ -I reviewed and agree with nursing and triage notes Were old charts reviewed (outside hosp., previous admission, EMS record, old EKG, old radiological studies, urgent care reports/EKG's, senior living records)? Report findings @ -No old charts were reviewed Differential Diagnosis (chest pain, altered mental status, abdominal pain women, abdominal pain men, vaginal bleeding, weakness, fever, dyspnea, syncope, headache, dizziness, GI bleed, back pain, seizure, CVA, palpatations, mental health, musculoskeletal)? @ -Differential Musculoskeletal Muscular strain, contusion, ligament sprain, fracture, arthritis, septic arthritis, bursitis, cellulitis, muscle spasm, nerve compression, DVT, arterial occlusion, herpes zoster, electrolyte abnormality, tumor.... This is not meant to be in all inclusive list EKG interpreted by me (3pts min.). @ -None X-rays interpreted by me (1pt min.). @ -Left hand x-ray interpreted me negative for acute osseous process. CT interpreted by me (1pt min.). @ -None done U/S interpreted by me (1pt. min.). @ -None done What testing was considered but not performed or refused? (CT, X-rays, U/S, labs)? Why? @ -None What meds were considered but not given or refused? Why? @ -None Did you discuss the management of the patient with other professionals (professionals i.e. , PA, CHILD CARE ASSISTANT, lab, RT, psych nurse, home health care social worker, machine printer, teacher, safety instruction police officer, onsite case manager)? Give summary @ -No Was smoking cessation discussed for >3mins.? @ -No Was critical care preformed (if so, how long)? @ -No Were there social determinants of health that impacted care today? How? (Homelessness, low income, unemployed, alcoholism, drug addiction, transportation, low edu. Level, literacy, decrease access to med. care, intermediate, rehab)? @ -No Was there de-escalation of care discussed even if they declined (Discuss DNR or withdrawal of care, Hospice)? DNR status @ -No What co-morbidities impacted this encounter? (DM, HTN, Smoking, COPD, CAD, Cancer, CVA, ARF, Chemo, Hep., AIDS, mental health diagnosis, sleep apnea, morbid obesity)? @ -None Was patient admitted / discharged? Hospital course, mention meds given and route, prescriptions, significant lab abnormalities, going to OR and other pertinent info. @ -Discharge. 48-year-old male presented to the ER with a chief complaint of left hand injury. Vitals stable. Exam remarkable for mild edema and tenderness to left second metacarpal. Patient has full active range of motion. No anatomical snuffbox tenderness. Left upper extremity neurovascular intact. Patient has no other acute complaints. X-rays obtained negative for acute osseous process. Patient received by mouth ibuprofen for pain control in the ER. Upon reevaluation, patient resting company in exam room no signs acute distress. Results discussed with patient, all questions answered. I recommended rest, ice, compression, OTC in his EXTR pain control. Return parameters discussed. Patient discharged in stable condition with follow-up to PCP. Patient verbally expressed understanding and agreed with care plan. Case discussed with ED attending, Dr. Mast. Undiagnosed new problem with uncertain prognosis? @ -No Drug Therapy requiring intensive monitoring for toxicity (Heparin, Nitro, Insulin, Cardizem)? @ -No Were any procedures done? @ -No Diagnosis/symptom? @ -Hand contusion Acute, or Chronic, or Acute on Chronic? @ -Acute Uncomplicated (without systemic symptoms) or Complicated (systemic symptoms)? @ -Uncomplicated Side effects of treatment? @ -No Exacerbation, Progression, or Severe Exacerbation? @ -No Poses a threat to life or bodily function? How? (Chest pain, USA, DE, pneumonia, PE, COPD, DKA, ARF, appy, cholecystitis, CVA, Diverticulitis, Homicidal, Suicidal, threat to staff... and all critical care pts) @ -No - Lab Data Lab Results 03/19/24 Range/Units 09:22 POC Glucose (mg/dL) 197 H (70-110) mg/dL POC Glu Teacher Education Director ID Lawrence Pleitez - Radiology Data Radiology results: report reviewed, image reviewed Disposition Clinical Impression: Hand contusion Disposition: HOME SELF-CARE Condition: Stable Instructions (If sedation given, give patient instructions): Contusion in Adults (ED) Additional Instructions: I recommend rest, ice, compression and elevation. You may take OTC tylenol and Motrin for pain control. Return to the ER for any new or worsening symptoms. Is patient prescribed a controlled substance at d/c from ED?: No Referrals: Radha Ortiz MD [Primary Care Provider] - 1-2 days Time of Disposition: 10:01
[2024-03-19] MEDS: IBUPROFEN 600 MG TAB PO STA (08:13)
[2024-03-19 09:24] LABS: Glucose,Whole Blood 197 mg/dL (70-110)
--- NOTE | 2024-03-19 09:40 | XR ---
EXAMINATION TYPE: XR hand complete LT DATE OF EXAM: 03/19/2024 8:13 AM CLINICAL INDICATION:Male, 58 years old with history of injury; [facility] COMPARISON: None TECHNIQUE: 3 views FINDINGS: Osseous mineralization appears appropriate. No destructive bony lesion. No acute fracture or dislocat ion. Mild/moderate diffuse osteoarthritic change. Unremarkable soft tissues. No radiopaque foreign akil dy is seen. IMPRESSION: No evidence of acute fracture or dislocation.
[2024-03-19 09:46] VITALS: RESP 16; TEMP 98
[2024-03-19 10:27] VITALS: BP 110/81; PULSE 86
== END 2024-03-19 10:27 | disposition home or self-care (01) ==
LOC: EC 07:45
DX: S60.222A Contusion of left hand, initial encounter (principal); Z87.891 Personal history of nicotine dependence; Z86.73 Personal history of transient ischemic attack (TIA), and cerebral infarction without residual deficits; W22.03XA Walked into furniture, initial encounter
CPT/HCPCS: 36415; 99284

== ENCOUNTER 2024-05-04 10:02 | Emergency (ER) | payer MEDICARE, OTHER ==
[2024-05-04] MEDS ORDERED: HYDROmorphone 1 MG/ML 1 ML SYRINGE ONE (11:45)
--- NOTE | 2024-06-06 13:02 | XR ---
Site ID [facility] Gatito Mcfarlane ID [id number] Order # Procedure ankle rt EXAMINATION TYPE: XR ankle complete RT DATE OF EXAM: 05/04/2024 12:15 PM CLINICAL INDICATION: Twisting injury COMPARISON: THIS EXAM WAS READ DURING PACS DOWNTIME, NO PRIORS AVAILABLE. TECHNIQUE: XR ankle complete RT; ankle is imaged in frontal, lateral and oblique projections. FINDINGS: There is no evidence of acute osseous pathology. No evidence of subluxation or dislocation. Kager's fat pad is intact. Mild soft tissue swelling around the ankle. No radiopaque foreign bodies are ident ified. Remote injury to the talofibular ligament suggestive of calcification. IMPRESSION: 1. No evidence of acute fracture. 2. Subcutaneous swelling around the ankle likely secondary to underlying soft tissue injury.
== END 2024-05-04 12:45 | disposition home or self-care (01) ==
LOC: EC 10:02
CPT/HCPCS: 96372; 99283

== ENCOUNTER 2024-06-23 02:13 | Emergency (ER) | payer MEDICARE, OTHER ==
[2024-06-23] MEDS: ACETAMINOPHEN TAB 500 MG TAB PO STA (02:37)
[2024-06-23] MEDS: SODIUM CHLORIDE 0.9% 500 ML 500 ML IV ONE (02:39)
[2024-06-23] MEDS: ONDANSETRON 4 MG/2 ML VIAL IVP STA (02:40)
[2024-06-23] MEDS: MORPHINE SULFATE 4 MG/ML SYRINGE IV STA (02:40)
--- NOTE | 2024-06-23 02:41 | ED ---
Fall HPI - General Chief Complaint: Fall Stated Complaint: Fall Time Seen by Provider: 06/23/24 02:18 Source: patient, EMS Mode of arrival: EMS - History of Present Illness Initial Comments: Patient is a pleasant 58-year-old gentleman the past medical history prior CVA, CAD, presenting today for fall. Patient states that over the last 2 months he has had multiple falls due to dizziness with standing. He has seen his PCP for this however states they are not sure what has caused his dizziness. Is chronically wheelchair-bound and tried to move himself from the toilet to his w heelchair this evening when he got dizzy, causing him to fall forward and hit his head on the washing machine. He denies loss of consciousness. He also states he injured his right hip. Endorses right hip and right low back pain. Denies other injury. Denies neck pain or numbness or weakness in his extremities. Denies chest pain or abdominal pain. No urinary incontinence. - Related Data Home Medications Medication Instructions Recorded Confirmed Linagliptin [Tradjenta] 5 mg PO DAILY@0900 05/30/19 09/15/23 rOPINIRole HCL [Requip] 3 mg PO TID@0900,1300,2100 05/30/19 09/15/23 Montelukast [Singulair] 10 mg PO HS@209907/21/19 09/15/23 Potassium Chloride [K-Tab ER] 40 meq PO BID@0900,2100 02/12/20 09/15/23 levETIRAcetam [Keppra] 1,500 mg PO BID 05/03/20 09/15/23 Furosemide [Lasix] 40 mg PO BID@0900,1500 09/06/20 09/15/23 Atorvastatin [Lipitor] 80 mg PO HS@2100 10/23/20 09/15/23 Clopidogrel [Plavix] 75 mg PO DAILY@0900 12/06/22 09/15/23 Albuterol Inhaler [Ventolin Hfa 2 puff INHALATION RT-QID PRN 06/15/23 09/15/23 Inhaler] DULoxetine HCL [Cymbalta] 30 mg PO HS 06/15/23 09/15/23 Ergocalciferol (Vitamin D2) 1,250 mcg PO ANDERSON 06/15/23 09/15/23 [Drisdol (50,000 Iu)] Insulin Aspart [NovoLOG Flexpen] 12 units SQ TID-W/MEALS 06/15/23 09/15/23 Insulin Aspart [NovoLOG Flexpen] See Protocol SQ TID-W/MEALS PRN 06/15/23 Insulin Glargine,Hum.rec.anlog 40 unit SQ HS 06/15/23 09/15/23 [Basaglar Kwikpen U-100] Midodrine HCl [ProAmatine] 10 mg PO TID PRN 06/15/23 09/15/23 Ondansetron Odt [Zofran Odt] 4 mg PO Q6H PRN 06/15/23 09/15/23 Pregabalin [Lyrica] 75 mg PO QID 06/15/23 09/15/23 metOLazone [Zaroxolyn] 5 mg PO Q48H 06/15/23 09/15/23 Amitriptyline HCl [Elavil] 10 mg PO HS 09/15/23 09/15/23 Empagliflozin [Jardiance] 10 mg PO DAILY 09/15/23 09/15/23 Fluconazole [Diflucan] 100 mg PO DIRECTED 09/15/23 09/15/23 Allergies Allergy/AdvReac Type Severity Reaction Status Date / Time No Known Allergies Allergy Verified 03/19/24 07:54 Review of Systems ROS Statement: Those systems with pertinent positive or pertinent negative responses have been documented in the HPI. ROS Other: All systems not noted in ROS Statement are negative. Past Medical History Past Medical History: Coronary Artery Disease (CAD), Cancer, COPD, CVA/TIA, Diabetes Mellitus, GERD/Reflux, Hyperlipidemia, Hypertension, Myocardial Infarction (RI), Osteoarthritis (OA), Pneumonia, Seizure Disorder, Sleep Apnea/CPAP/BIPAP Additional Past Medical History / Comment(s): LAST SEIZURE 2018; lumbar radiculopathy; neuropathy; no CPAP needed per recent sleep study, hx. lung cancer, cellulitis of both lower legs 2020 Last Myocardial Infarction Date:: 10/22/10 History of Any Multi-Drug Resistant Organisms: None Reported Past Surgical History: Back Surgery, Cholecystectomy, Heart Catheterization With Stent Additional Past Surgical History / Comment(s): LAMINECTOMY ,fusion,spinal stimulator LEFT SHOULDER sx, 07-31-15 revison thoracic laminectomy t10-t 11/removal of neuro stimulator and wires removed, fused L1&2 to a cage fusion that was previously put in to L3,4,5. May 27/2018. lobectomy of right middle lung Past Anesthesia/Blood Transfusion Reactions: No Reported Reaction Date of Last Stent Placement:: 10/22/10 Past Psychological History: Depression Smoking Status: Former smoker Past Alcohol Use History: None Reported Past Drug Use History: None Reported - Past Family History Brother(s) Family Medical History: Deep Vein Thrombosis (DVT) Mother Family Medical History: Osteoarthritis (OA) Additional Family Medical History / Comment(s): psoriases, Parkinsons Father Family Medical History: Coronary Artery Disease (CAD) Additional Family Medical History / Comment(s): heart problems- quad bypass, General Exam - General Exam Comments Initial Comments: PE: CONSTITUTIONAL: No apparent distress, well appearing SKIN: Warm, dry, no jaundice, hives or petechiae, abrasions to anterior aspect otherwise no lacerations contusions or abrasions EYES: Pupils are equally round, extraocular movements intact without nystagmus, clear conjunctiva, non-icteric sclera HENT: Normocephalic, abrasion to anterior/top of the occiput, moist mucus membranes, oropharynx clear without exudates NECK: , Full range of motion, normal appearance, no midline spinal TTP, the patient denies any numbess, tingling, or weakness of the extremities when moving neck through full ROM. The patient is able to range their neck completely without midline cervical pain, numbness, tingling or weakness. PULMONARY: Clear to auscultation without wheezes, rhonchi, or rales, normal excursion, no accessory muscle use and no stridor, no chest wall TTP CARDIOVASCULAR: Regular rate, rhythm, normal S1 and S2. No appreciated murmurs, rubs or gallops. Strong radial pulses with intact distal perfusion. No lower extremity edema GASTROINTESTINAL: Soft, active bowel sounds throughout, non-tender, non- distended, no palpable masses, no rebound or guarding. No hepatosplenomegaly MUSCULOSKELETAL: Extremities have no gross deformity, no edema, redness, or swelling. No calf swelling. TTP right lateral hip and right lumbar spine, no midline spinal TTP NEUROLOGIC:_a/o x 3, GCS 15, normal mentation and speech. 4/5 strength in LLE with hip flexion, patient states is chronic, otherwise moves all extremities x 4 without motor or sensory deficit, no focal neurologic deficit, no facial droop, speech is clear and fluent, sensation intact in all 4 extremities, visual hernandes intact PSYCHIATRIC:_normal mood and affect, thought process is clear and linear Course Vital Signs 06/23/24 06/23/24 06/23/24 02:16 04:53 07:05 Temperature 97.9 F Pulse Rate 88 96 96 Respiratory 18 18 18 Rate Blood Pressure 117/67 122/64 107/78 O2 Sat by Pulse 97 96 96 Oximetry 06/23/24 08:15 Temperature 97.6 F Pulse Rate 98 Respiratory 16 Rate Blood Pressure 117/84 O2 Sat by Pulse 95 Oximetry Medical Decision Making - Medical Decision Making Was pt. sent in by a medical professional or institution (, PA, WEB ENGINEER, urgent care, hospital, or fdc...) When possible be specific @ -No Did you speak to anyone other than the patient for history (EMS, parent, family, police, friend...)? What history was obtained from this source @ -No Did you review nursing and triage notes (agree or disagree)? Why? @ -I reviewed and agree with nursing and triage notes Were old charts reviewed (outside hosp., previous admission, EMS record, old EKG, old radiological studies, urgent care reports/EKG's, fdc records)? Report findings @Old charts reviewed- Patient presented to the ED on 05/04/2024 after fall from his wheelchair and resultant right ankle injury, x-ray performed at that time showed no fracture Differential Diagnosis (chest pain, altered mental status, abdominal pain women, abdominal pain men, vaginal bleeding, weakness, fever, dyspnea, syncope, headache, dizziness, GI bleed, back pain, seizure, CVA, palpatations, mental health, musculoskeletal)? @Differential diagnosis remains broad however in regards to inijury sustained from fall, top considerations include contusion, sprain, fracture,, dislocation, this is not all inclusive list; In regards dizziness, differential diagnose remains broad over top considerations include Benign paroxysmal positional Vertigo, Meniere's disease, acoustic neuroma, vertebrobasilar insufficiency, cerebellar stroke, hypovolemic, arrhythmia, ACS, anemia, this is not meant to be an all-inclusive list EKG interpreted by me (3pts min.). @ -Sinus rhythm, 78 bpm, FL interval 163 ms, QRS duration 101 ms, QT/QTc 358/392 ms, normal axis, no ST elevations or depressions, X-rays interpreted by me (1pt min.). @ -Imaging interpreted independently by myself chest x-ray shows no cardiomegaly or consolidations, x-ray of the lumbar spine shows no fracture or malalignment, x-ray of the hips and pelvis does not appear to show obvious fracture or dislocation CT interpreted by me (1pt min.). @CT brain- no evidence of hemorrhage or skull fracture, CT hip does now show fracture or dislocation U/S interpreted by me (1pt. min.). @ -None done What testing was considered but not performed or refused? (CT, X-rays, U/S, labs)? Why? @ -None What meds were considered but not given or refused? Why? @ -None Did you discuss the management of the patient with other professionals (professionals i.e. , PA, WEB ENGINEER, lab, RT, psych nurse, social work administrator, pmo business analyst, teacher, staff weapons officer, case making machine operator)? Give summary @ -No Was smoking cessation discussed for >3mins.? @ -No Was critical care preformed (if so, how long)? @ -No Were there social determinants of health that impacted care today? How? (Homelessness, low income, unemployed, alcoholism, drug addiction, transportation, low edu. Level, literacy, decrease access to med. care, halfway, rehab)? @ -No Was there de-escalation of care discussed even if they declined (Discuss DNR or withdrawal of care, Hospice)? @ -No What co-morbidities impacted this encounter? (DM, HTN, Smoking, COPD, CAD, Cancer, CVA, ARF, Chemo, Hep., AIDS, mental health diagnosis, sleep apnea, morbid obesity)? @ History of CAD, cancer, COPD, prior CVA, hypertension, hyperlipidemia, chronically wheelchair-bound Was patient admitted / discharged? Hospital course, mention meds given and route, prescriptions, significant lab abnormalities, going to OR and other pertinent info. @ -Hospital course-Discharged Patient is a 58-year-old gentleman with a past medical history CAD, cancer, COPD, prior CVA with mild residual left-sided weakness, wheelchair-bound, hypertension hyperlipidemia presenting today for a fall forward from his wheelchair due to dizziness upon trying to rise and transfer from wheelchair to bed. +Hit head, no LOC. Presenting for right hip and right low back pain. Dizziness has since resolved, on assessment patient has abrasion to the anterior top of his occiput, no midline spinal tenderness to palpation, pupils equal and reactive, no facial droop, clear speech, no midline spinal tenderness palpation, chest wall and abdomen are soft and nontender, upper extremities are nontender to palpation and have no gross deformity or signs of injury, right hip somewhat tender to palpation laterally and right lumbar/ low back tenderness to palpation without point tenderness. Patient does have 4 out of 5 strength in left lower extremity states this is chronic for him. Otherwise no focal neurologic deficits, no saddle anesthesia. Diifferential dx as above, Patient's presentation is not consistent with cerebellar CVA given transient dizziness, onset with positional change, no new neurological symptoms. There for CTA not indicated at this point. Per [place] C spine rule negative, CT cspine not indicated, patient less than 65 years awake speech, low impact/low risk mechanism, no new extremity paresthesias (has residual left lower extremity weakness secondary to prior CVA) patient has no neck pain or midline tenderness pain which and able to range his neck through full range of motion without midline tenderness or radiculopathy; Plan for CT brain given head injury on Vidal vix, x-ray lumbar spine, chest x-ray, pelvis x-ray with right hip, EKG, CBC CMP, troponin, TSH serum alcohol, IV fluids and pain control, CK. Patient is agreeable plan of care. Patient did require additional pain control he is chronically on narcotics at home so suspect that he is opioid tolerant. Labs reviewed. Grossly within normal limits. Abnormal values not concerning for acute pathology related to presenting complaint. CT brain showed no acute process, x-ray lumbar spine showed no fracture or malalignment, chest x-ray without cardiomegaly or consolidations hip pelvics x- ray significant for slight irregularity of the right femoral neck contour, radiologist states it is somewhat similar. Appearance to prior, no definitive acute fracture or dislocation if further concern for fracture consider CT or MRI. CT hip was obtained and did not show any evidence of fracture or dislocati on. On my reassessment patient states his pain is improved. I discussed with him option for admission to the hospital for observation and considering usp facility placement due to his recent falls however patient politely declined this and states he would rather be discharged home. He did request an additional dose of pain medications prior to discharge. This was ordered and patient was discharged in good condition. In my medical judgment there is currently no evidence of an immediate life- threatening or surgical condition. Discharge is therefore indicated at this time. Discharge treatment instructions, follow up instructions, and appropriate emergency department return precautions were discussed with the patient and/or medical decision maker. Patient and/or medical decision maker expressed understanding of and agreed with the treatment plan, follow up instructions, and emergency department return precaution. All patient's and/or medical decision maker's questions were answered. The patient was advised that a small risk still exists that a serious condition could develop and was therefore instructed to return to the ED for any changes in symptoms, persistent symptoms, inability to obtain proper follow-up or for any further concerns. Patient received verbal and written instructions for this condition. Undiagnosed new problem with uncertain prognosis? @ -No Drug Therapy requiring intensive monitoring for toxicity (Heparin, Nitro, Insulin, Cardizem)? @ -No Were any procedures done? @ -No Diagnosis/symptom? @ Fall, right hip pain Acute, or Chronic, or Acute on Chronic? @ -acute Uncomplicated (without systemic symptoms) or Complicated (systemic symptoms)? @ complicated Side effects of treatment? @ -No Exacerbation, Progression, or Severe Exacerbation? @ -No Poses a threat to life or bodily function? How? (Chest pain, USA, RI, pneumonia, PE, COPD, DKA, ARF, appy, cholecystitis, CVA, Diverticulitis, Homicidal, Suicidal, threat to staff... and all critical care pts) @ -No . - Lab Data Result diagrams: 06/23/24 02:18 06/23/24 02:18 Lab Results 06/23/24 06/23/24 06/23/24 Range/Units 02:18 02:18 02:18 WBC 7.0 (3.8-10.6) k/uL RBC 4.33 (4.30-5.90) m/uL Hgb 12.5 L (13.0-17.5) gm/dL Hct 38.1 L (39.0-53.0) % MCV 87.8 (80.0-100.0) fL MCH 28.9 (25.0-35.0) pg MCHC 32.9 (31.0-37.0) g/dL RDW 15.0 (11.5-15.5) % Plt Count 171 (150-450) k/uL MPV 7.7 Neutrophils % 65 % Lymphocytes % 24 % Monocytes % 6 % Eosinophils % 2 % Basophils % 0 % Neutrophils # 4.5 (1.3-7.7) k/uL Lymphocytes # 1.7 (1.0-4.8) k/uL Monocytes # 0.4 (0-1.0) k/uL Eosinophils # 0.2 (0-0.7) k/uL Basophils # 0.0 (0-0.2) k/uL Hypochromasia Slight PT 10.0 (10.0-12.5) sec INR 0.9 (<1.2) APTT 24.7 (22.0-30.0) sec Sodium 136 L (137-145) mmol/L Potassium 4.7 (3.5-5.1) mmol/L Chloride 102 (98-107) mmol/L Carbon Dioxide 29 (22-30) mmol/L Anion Gap 5 mmol/L BUN 13 (9-20) mg/dL Creatinine 0.75 (0.66-1.25) mg/dL Est GFR (CKD-EPI)AfAm >90 (>60 ml/min/1.73 sqM) Est GFR (CKD-EPI)NonAf >90 (>60 ml/min/1.73 sqM) Glucose 143 H (74-99) mg/dL Calcium 9.4 (8.4-10.2) mg/dL Magnesium 1.8 (1.6-2.3) mg/dL Total Bilirubin 0.6 (0.2-1.3) mg/dL AST 23 (17-59) U/L ALT 21 (4-49) U/L Alkaline Phosphatase 96 (38-126) U/L Creatine Kinase 82 (55-170) U/L Troponin I (0.000-0.034) ng/mL Total Protein 6.3 (6.3-8.2) g/dL Albumin 3.9 (3.5-5.0) g/dL TSH 0.951 (0.465-4.680) mIU/L Serum Alcohol <10 mg/dL 06/23/24 Range/Units 02:18 WBC (3.8-10.6) k/uL RBC (4.30-5.90) m/uL Hgb (13.0-17.5) gm/dL Hct (39.0-53.0) % MCV (80.0-100.0) fL MCH (25.0-35.0) pg MCHC (31.0-37.0) g/dL RDW (11.5-15.5) % Plt Count (150-450) k/uL MPV Neutrophils % % Lymphocytes % % Monocytes % % Eosinophils % % Basophils % % Neutrophils # (1.3-7.7) k/uL Lymphocytes # (1.0-4.8) k/uL Monocytes # (0-1.0) k/uL Eosinophils # (0-0.7) k/uL Basophils # (0-0.2) k/uL Hypochromasia PT (10.0-12.5) sec INR (<1.2) APTT (22.0-30.0) sec Sodium (137-145) mmol/L Potassium (3.5-5.1) mmol/L Chloride (98-107) mmol/L Carbon Dioxide (22-30) mmol/L Anion Gap mmol/L BUN (9-20) mg/dL Creatinine (0.66-1.25) mg/dL Est GFR (CKD-EPI)AfAm (>60 ml/min/1.73 sqM) Est GFR (CKD-EPI)NonAf (>60 ml/min/1.73 sqM) Glucose (74-99) mg/dL Calcium (8.4-10.2) mg/dL Magnesium (1.6-2.3) mg/dL Total Bilirubin (0.2-1.3) mg/dL AST (17-59) U/L ALT (4-49) U/L Alkaline Phosphatase (38-126) U/L Creatine Kinase (55-170) U/L Troponin I <0.012 (0.000-0.034) ng/mL Total Protein (6.3-8.2) g/dL Albumin (3.5-5.0) g/dL TSH (0.465-4.680) mIU/L Serum Alcohol mg/dL Disposition Clinical Impression: Fall, Right hip pain Disposition: HOME SELF-CARE Condition: Stable Instructions (If sedation given, give patient instructions): Dizziness (ED) Additional Instructions: Every disease is a spectrum and a small chance still exists that a serious condition could develop, for this reason, please monitor yourself closely for new, changing or worsening symptoms, symptoms that persist beyond 72 hours, episodes of passing out, pain you cannot control at home, hitting her head, chest pain, difficulty in breathing, new numbness weakness or changes in vision, fever, inability to tolerate/keep down fluids or your medications, inability to follow up with outpatient providers as instructed and should you experience these symptoms or should you have any further concerns for your wellbeing please return to the ED or call 911 immediately. PLEASE call your primary care physician as soon as possible to arrange / discuss plan for followup appointment. Appointment in the next 1-3 days is strongly encouraged if possible. PLEASE let us know here before you leave if there is anything further we can do to be of any assistance. Take care and feel Better! Is patient prescribed a controlled substance at d/c from ED?: No Referrals: None,Stated [REFERRING] - 1-2 days
[2024-06-23 03:01] LABS: INR 0.9 (<1.2); Partial Thromboplastin Time 24.7 sec (22.0-30.0)
[2024-06-23 03:04] LABS: ALT 21 U/L (4-49); AST 23 U/L (17-59); African American GFR (CKD) >90 (>60 ml/min/1.73 sqM); Albumin 3.9 g/dL (3.5-5.0); Alcohol <10 mg/dL; Alkaline Phosphatase 96 U/L (38-126); Anion Gap 5 mmol/L; Blood Urea Nitrogen 13 mg/dL (9-20); Calcium 9.4 mg/dL (8.4-10.2); Carbon Dioxide 29 mmol/L (22-30); Chloride 102 mmol/L (98-107); Creatine Kinase 82 U/L (55-170); Glucose 143 mg/dL (74-99); Magnesium 1.8 mg/dL (1.6-2.3); Non-African American GFR(CKD) >90 (>60 ml/min/1.73 sqM); Potassium 4.7 mmol/L (3.5-5.1); Sodium 136 mmol/L (137-145); Total Bilirubin 0.6 mg/dL (0.2-1.3); Total Protein 6.3 g/dL (6.3-8.2)
[2024-06-23 03:13] LABS: Basophils % (A) 0 %; Eosinophils # (A) 0.2 k/uL (0-0.7); Eosinophils % (A) 2 %; HCT 38.1 % (39.0-53.0); HGB 12.5 gm/dL (13.0-17.5); Hypochromasia Slight; Lymphocytes # (A) 1.7 k/uL (1.0-4.8); Lymphocytes % (A) 24 %; MCH 28.9 pg (25.0-35.0); MCHC 32.9 g/dL (31.0-37.0); MCV 87.8 fL (80.0-100.0); Mean Platelet Volume 7.7; Monocytes # (A) 0.4 k/uL (0-1.0); Monocytes % (A) 6 %; Neutrophils # (A) 4.5 k/uL (1.3-7.7); Neutrophils % (A) 65 %; Platelet Count 171 k/uL (150-450); RBC 4.33 m/uL (4.30-5.90)
--- NOTE | 2024-06-23 04:09 | CT ---
EXAM: CT Head Without Intravenous Contrast CLINICAL HISTORY: ITS.REASON CT Reason: fall, hit front of head TECHNIQUE: Axial computed tomography images of the head/brain without intravenous contrast. CTDI is 49.2 mGy and DLP is 1256.4 mGy-cm. This CT exam was performed using one or more of the following dose reduction techniques: automated exposure control, adjustment of the mA and/or kV according to patient size, and/or use of iterative reconstruction technique. COMPARISON: CT Head dated 09/15/23 FINDINGS: Brain: Unremarkable. No hemorrhage. No significant white matter disease. No edema. Ventricles: Unremarkable. No ventriculomegaly. Bones/joints: Unremarkable. No acute fracture. Soft tissues: Unremarkable. Sinuses: Mild paranasal sinus mucosal thickening. Mastoid air cells: Unremarkable as visualized. No mastoid effusion. IMPRESSION: No acute findings in the head/brain.
--- NOTE | 2024-06-23 04:13 | XR ---
EXAM: XR Lumbosacral Spine, 2 or 3 Views CLINICAL HISTORY: ITS.REASON XR Reason: fall, right back pain TECHNIQUE: Frontal and lateral views of the lumbar spine and sacrum. COMPARISON: No relevant prior studies available. FINDINGS: Limitations: Limited lateral views. Vertebrae: Stable lumbosacral posterior fusion from L3-S1. No obvious acute fracture or malalignment. Sacrum/coccyx: Unremarkable as visualized. No acute fracture. Disc spaces: See above. Soft tissues: Unremarkable. IMPRESSION: No obvious acute fracture or malalignment.
--- NOTE | 2024-06-23 04:15 | XR ---
EXAM: XR Chest, 1 View CLINICAL HISTORY: ITS.REASON XR Reason: fall, dizziness TECHNIQUE: Frontal view of the chest. COMPARISON: 12/06/2022 FINDINGS: Lungs: Low lung volumes. Mild basilar atelectasis. Pleural space: Unremarkable. No pneumothorax. Heart: Unremarkable. No cardiomegaly. Mediastinum: Unremarkable. Normal mediastinal contour. Bones/joints: Unremarkable. No acute fracture. IMPRESSION: Low lung volumes. Mild basilar atelectasis.
--- NOTE | 2024-06-23 04:20 | XR ---
EXAM: XR Right Hip With Pelvis When Performed, 2 or 3 Views CLINICAL HISTORY: ITS.REASON XR Reason: right hip pain s/p fall TECHNIQUE: Two or three views of the right hip with pelvis when performed. COMPARISON: XR Hips Pelvis Unilateral or Bi dated 09/15/2023 FINDINGS: Bones/joints: Partially visualized lower lumbosacral spinal fusion hardware. Slight irregularity of the right femoral neck contour. Somewhat similar appearance on the prior. No acute fracture. No dislocation. Soft tissues: Unremarkable. IMPRESSION: Slight irregularity of the right femoral neck contour. Somewhat similar appearance on the prior. No definite acute fracture or dislocation. If further concern for fracture, consider CT or MR.
[2024-06-23] MEDS: HYDROmorphone 1 MG/ML 1 ML SYRINGE IVP STA (04:48)
--- NOTE | 2024-06-23 06:55 | CT ---
EXAM: CT Right Lower Extremity Without Intravenous Contrast, Hip CLINICAL HISTORY: ITS.REASON CT Reason: concern for right femur fracture TECHNIQUE: Axial computed tomography images of the right hip without intravenous contrast. CTDI is 36.2 mGy and DLP is 1488.6 mGy-cm. This CT exam was performed using one or more of the following dose reduction techniques: automated exposure control, adjustment of the mA and/or kV according to patient size, and/or use of iterative reconstruction technique. COMPARISON: X-ray right hip dated today FINDINGS: Bones/joints: No acute fracture. No dislocation. Lower lumbosacral fusion hardware, partially visualized. Grade 2 anterolisthesis of L5 on S1. Sclerotic lesion in the right superior pubic ramus and left ischium, likely bone islands. Soft tissues: Unremarkable. Vasculature: Aortoiliac vascular calcifications. IMPRESSION: No evidence of acute fracture or dislocation.
[2024-06-23] MEDS: MORPHINE SULFATE 4 MG/ML SYRINGE IVP STA (07:15)
[2024-06-23 08:18] VITALS: BP 117/84; PULSE 98; RESP 16; TEMP 97.6
== END 2024-06-23 08:15 | disposition home or self-care (01) ==
LOC: EC 02:13
CPT/HCPCS: 36415; 70450; 71045; 72100; 73502; 80053; 80320; 82550; 83735; 84443; 84484; 85025; 85610; 85730; 93005; 96361; 96374; 96375; 96376; 99285

== ENCOUNTER 2024-07-11 08:31 | Observation (INO) | payer MEDICARE ==
[2024-07-11 09:00] LABS: Basophils % (A) 0 %; Eosinophils # (A) 0.2 k/uL (0-0.7); Eosinophils % (A) 2 %; HCT 41.8 % (39.0-53.0); HGB 13.4 gm/dL (13.0-17.5); Lymphocytes # (A) 1.8 k/uL (1.0-4.8); Lymphocytes % (A) 17 %; MCH 28.3 pg (25.0-35.0); MCV 88.4 fL (80.0-100.0); Mean Platelet Volume 7.4; Monocytes # (A) 0.5 k/uL (0-1.0); Monocytes % (A) 5 %; Neutrophils # (A) 7.8 k/uL (1.3-7.7); Neutrophils % (A) 73 %; Platelet Count 219 k/uL (150-450); RBC 4.73 m/uL (4.30-5.90); RDW 15.3 % (11.5-15.5); WBC 10.6 k/uL (3.8-10.6)
--- NOTE | 2024-07-11 09:03 | ED ---
General Adult HPI - General Chief complaint: Altered Mental Status Stated complaint: SALVATORE Time Seen by Provider: 07/11/24 08:36 Source: patient Mode of arrival: EMS Limitations: no limitations - History of Present Illness Initial comments: Dictation was produced using [employer] dictation software. please excuse any grammatical, word or spelling errors. Chief Complaint: 58-year-old male with chief complaint of nausea and feeling hot and sweaty History of Present Illness: Patient is a 58-year-old male he suffered a stroke in 2019. He did call the ambulance for waking up feeling nauseated hot and sweaty. EMS upon arrival is very family with patient states that he was found to have tremors and right-sided facial droop. Patient has history of residual stroke symptoms affecting his left side including his face arm and leg. Patient denies any flaccid paralysis of those extremities but does state that he does have some persistent weakness there. Denies any chest pain. No pain complaints. No abdominal pain. No constitutional symptoms. Patient allegedly last normal last night The ROS documented in this emergency department record has been reviewed and confirmed by me. Those systems with pertinent positive or negative responses have been documented in the HPI. All other systems are other negative and/or noncontributory. - Related Data Home Medications Medication Instructions Recorded Confirmed rOPINIRole HCL [Requip] 3 mg PO Q8H 05/30/19 07/11/24 Montelukast [Singulair] 10 mg PO HS 07/21/19 07/11/24 levETIRAcetam [Keppra] 1,500 mg PO BID 05/03/20 07/11/24 Furosemide [Lasix] 60 mg PO BID@0900,1500 09/06/20 07/11/24 Atorvastatin [Lipitor] 80 mg PO HS 10/23/20 07/11/24 Clopidogrel [Plavix] 75 mg PO DAILY 12/06/22 07/11/24 DULoxetine HCL [Cymbalta] 30 mg PO HS 06/15/23 07/11/24 Ergocalciferol (Vitamin D2) 1,250 mcg PO ANDERSON 06/15/23 07/11/24 [Drisdol (50,000 Iu)] Insulin Aspart [NovoLOG Flexpen] 25 units SQ TID-W/MEALS 06/15/23 07/11/24 Insulin Glargine,Hum.rec.anlog 45 unit SQ BID 06/15/23 07/11/24 [Basaglar Kwikpen U-100] Midodrine HCl [ProAmatine] 10 mg PO TID 06/15/23 07/11/24 Empagliflozin [Jardiance] 10 mg PO DAILY 09/15/23 07/11/24 Gabapentin [Neurontin] 400 mg PO QID 07/11/24 07/11/24 Meloxicam [Mobic] 15 mg PO DAILY 07/11/24 07/11/24 Mupirocin 2% Oint [Bactroban 2% 1 applic TOPICAL BID 07/11/24 07/11/24 Oint] Potassium Chloride [Klor-Con M20] 20 meq PO BID 07/11/24 07/11/24 Spironolactone [Aldactone] 50 mg PO DAILY 07/11/24 07/11/24 Tirzepatide [Mounjaro] 7.5 mg SQ SA 07/11/24 07/11/24 traZODone HCL 150 mg PO DAILY 07/11/24 07/11/24 Allergies Allergy/AdvReac Type Severity Reaction Status Date / Time No Known Allergies Allergy Verified 07/11/24 09:38 Review of Systems ROS Statement: Those systems with pertinent positive or pertinent negative responses have been documented in the HPI. ROS Other: All systems not noted in ROS Statement are negative. Past Medical History Past Medical History: Coronary Artery Disease (CAD), Cancer, COPD, CVA/TIA, Diabetes Mellitus, GERD/Reflux, Hyperlipidemia, Hypertension, Myocardial Infarction (OK), Osteoarthritis (OA), Pneumonia, Seizure Disorder, Sleep Apnea/CPAP/BIPAP Additional Past Medical History / Comment(s): LAST SEIZURE 2018; lumbar radiculopathy; neuropathy; no CPAP needed per recent sleep study, hx. lung cancer, cellulitis of both lower legs 2020 Last Myocardial Infarction Date:: 10/22/10 History of Any Multi-Drug Resistant Organisms: None Reported Past Surgical History: Back Surgery, Cholecystectomy, Heart Catheterization With Stent Additional Past Surgical History / Comment(s): LAMINECTOMY ,fusion,spinal stimulator LEFT SHOULDER sx, 07-31-15 revison thoracic laminectomy t10- t11/removal of neuro stimulator and wires removed, fused L1&2 to a cage fusion that was previously put in to L3,4,5. May 27/2018. lobectomy of right middle lung Past Anesthesia/Blood Transfusion Reactions: No Reported Reaction Date of Last Stent Placement:: 10/22/10 Past Psychological History: Depression Smoking Status: Former smoker Past Alcohol Use History: None Reported Past Drug Use History: None Reported - Past Family History Brother(s) Family Medical History: Deep Vein Thrombosis (DVT) Mother Family Medical History: Osteoarthritis (OA) Additional Family Medical History / Comment(s): psoriases, Parkinsons Father Family Medical History: Coronary Artery Disease (CAD) Additional Family Medical History / Comment(s): heart problems- quad bypass, General Exam - General Exam Comments Initial Comments: PHYSICAL EXAM: General Impression: Alert and oriented x3, not in acute distress HEENT: Normocephalic atraumatic, extra-ocular movements intact, pupils equal and reactive to light bilaterally, mucous membranes moist. Cardiovascular: Heart regular rate and rhythm Chest: Able to complete full sentences, no retractions, no tachypnea Abdomen: abdomen soft, non-tender, non-distended, no organomegaly Musculoskeletal: Pulses present and equal in all extremities, no peripheral edema Motor: no focal deficits noted Neurological: Right-sided facial droop, with flattening of the right nasolabial fold. Right lower facial musculature intact with smiling. Patient does have weakness to his left arm and left leg. Tremors noted to his right upper extremity Psych: Normal affect and mood Limitations: no limitations Course Vital Signs 07/11/24 07/11/24 07/11/24 08:35 08:50 09:05 Temperature 98 F 98.5 F Pulse Rate 114 H 112 H 99 Respiratory 24 18 16 Rate Blood Pressure 133/92 121/106 145/70 O2 Sat by Pulse 97 96 94 L Oximetry - Reevaluation(s) Reevaluation #1: 07/11/24 09:02 Patient presents to the emergency department wake-up stroke symptoms. Patient denies that he has any stroke symptoms states that he is here merely for feeling nauseated hot and sweaty. Patient not a candidate for thrombolytics. Code stroke page due to measurable neurologic deficit. Case discussed with Dr. Go who is aware of patient. EKG Findings - EKG Comments: EKG Findings:: My EKG interpretation: Ventricular rate 96, atrial rhythm,. 122, care sinus tach on QTc 379. No VA prolongation, no QTC prolongation, no ST or T-wave changes noted. Overall, this EKG is unremarkable Medical Decision Making - Medical Decision Making Was pt. sent in by a medical professional or institution ([facility], PAY PER CLICK STRATEGIST, urgent care, hospital, or usp...) When possible be specific @ -No Did you speak to anyone other than the patient for history (EMS, parent, family, police, friend...)? What history was obtained from this source @ -EMS as described above Did you review nursing and triage notes (agree or disagree)? Why? @ -I reviewed and agree with nursing and triage notes Were old charts reviewed (outside hosp., previous admission, EMS record, old EKG, old radiological studies, urgent care reports/EKG's, usp records)? Report findings @ -No old charts were reviewed Differential Diagnosis (chest pain, altered mental status, abdominal pain women, abdominal pain men, vaginal bleeding, musculoskeletal, weakness, fever, dyspnea, syncope, headache, dizziness, GI bleed, back pain, seizure, CVA, palpatations, mental health)? @ - Differential CVA: Ischemic stroke, hemorrhagic stroke, brain tumor, atypical migraine, Wernicke's encephalopathy, seizure, multiple sclerosis, meningitis, encephalitis, hypoglycemia, Guillain-Solorzano, electrolytes disturbance, myasthenia gravis.... This is not meant to be an all-inclusive list EKG interpreted by me (3pts min.). @ -None done X-rays interpreted by me (1pt min.). @ -Chest x-ray shows diffuse interstitial perihilar opacities improved from previous exam CT interpreted by me (1pt min.). @ -CT brain shows no acute processes. CT angiography shows no large vessel occlusion U/S interpreted by me (1pt. min.). @ -None done What testing was considered but not performed or refused? (CT, X-rays, U/S, l abs)? Why? @ -None What meds were considered but not given or refused? Why? @ -None Was smoking cessation discussed for >3mins.? @ -No Were there social determinants of health that impacted care today? How? (Homelessness, low income, unemployed, alcoholism, drug addiction, transportation, low edu. Level, literacy, decrease access to med. care, [facility], rehab)? @ -No Was there de-escalation of care discussed even if they declined (Discuss DNR or withdrawal of care, Hospice)? DNR status @ -No What co-morbidities impacted this encounter? (DM, HTN, Smoking, COPD, CAD, Cancer, CVA, ARF, Chemo, Hep., AIDS, mental health diagnosis, sleep apnea, morbid obesity)? @ -History of CVA Was patient admitted / discharged? Hospital course, mention meds given and route, prescriptions, significant lab abnormalities, going to OR and other pertinent info. @ -58-year-old male with history of CVA with residual stroke symptoms presents to the ER with strokelike symptoms. Patient states that his initial complaint was feeling nauseated hot and sweaty. Patient has a tremor to his right upper extremity. He is awake alert oriented. EMS was concerned about CVA given that they are very familiar with the patient. He does have a noticeable right-sided facial droop. Patient symptoms outside the window for aggressive management. Code stroke was paged despite patient not being a candidate for thrombolytics. CT angiography negative. No bleed on CT brain. Patient will be admitted consultation to neurology. Did you discuss the management of the patient with other professionals (professionals i.e. , PA, PAY PER CLICK STRATEGIST, lab, RT, psych nurse, social media analyst, tax processor, teacher, project officer, telephonic nurse case manager)? Give summary @ -Case discussed with Dr. Handy for admission Was critical care preformed (if so, how long)? @ -Yes, 33 minutes for code stroke Undiagnosed new problem with uncertain prognosis? @ -No Drug Therapy requiring intensive monitoring for toxicity (Heparin, Nitro, Insulin, Cardizem)? @ -No Were any procedures done? @ -No Diagnosis/symptom? Acute, or Chronic, or Acute on Chronic? Uncomplicated (without systemic symptoms) or Complicated (systemic symptoms)? @ -Stroke symptoms Side effects of treatment? @ -No Exacerbation, Progression, or Severe Exacerbation? @ -No Poses a threat to life or bodily function? How? (Chest pain, USA, OK, pneumonia, PE, COPD, DKA, ARF, appy, cholecystitis, CVA, Diverticulitis, Homicidal, Suicidal, threat to staff... and all critical care pts) @ -yes - Lab Data Result diagrams: 07/11/24 08:43 07/11/24 08:43 Lab Results 07/11/24 07/11/24 07/11/24 Range/Units 08:43 08:43 08:43 WBC 10.6 (3.8-10.6) k/uL RBC 4.73 (4.30-5.90) m/uL Hgb 13.4 (13.0-17.5) gm/dL Hct 41.8 (39.0-53.0) % MCV 88.4 (80.0-100.0) fL MCH 28.3 (25.0-35.0) pg MCHC 32.0 (31.0-37.0) g/dL RDW 15.3 (11.5-15.5) % Plt Count 219 (150-450) k/uL MPV 7.4 Neutrophils % 73 % Lymphocytes % 17 % Monocytes % 5 % Eosinophils % 2 % Basophils % 0 % Neutrophils # 7.8 H (1.3-7.7) k/uL Lymphocytes # 1.8 (1.0-4.8) k/uL Monocytes # 0.5 (0-1.0) k/uL Eosinophils # 0.2 (0-0.7) k/uL Basophils # 0.0 (0-0.2) k/uL PT 9.8 L (10.0-12.5) sec INR 0.9 (<1.2) APTT 24.0 (22.0-30.0) sec Sodium 142 (137-145) mmol/L Potassium 4.5 (3.5-5.1) mmol/L Chloride 101 (98-107) mmol/L Carbon Dioxide 35 H (22-30) mmol/L Anion Gap 6 mmol/L BUN 17 (9-20) mg/dL Creatinine 0.85 (0.66-1.25) mg/dL Est GFR (CKD-EPI)AfAm >90 (>60 ml/min/1.73 sqM) Est GFR (CKD-EPI)NonAf >90 (>60 ml/min/1.73 sqM) Glucose 129 H (74-99) mg/dL Calcium 9.5 (8.4-10.2) mg/dL Total Bilirubin 0.7 (0.2-1.3) mg/dL AST 23 (17-59) U/L ALT 22 (4-49) U/L Alkaline Phosphatase 79 (38-126) U/L Creatine Kinase 59 (55-170) U/L Troponin I (0.000-0.034) ng/mL Total Protein 7.2 (6.3-8.2) g/dL Albumin 4.6 (3.5-5.0) g/dL 07/11/24 Range/Units 08:43 WBC (3.8-10.6) k/uL RBC (4.30-5.90) m/uL Hgb (13.0-17.5) gm/dL Hct (39.0-53.0) % MCV (80.0-100.0) fL MCH (25.0-35.0) pg MCHC (31.0-37.0) g/dL RDW (11.5-15.5) % Plt Count (150-450) k/uL MPV Neutrophils % % Lymphocytes % % Monocytes % % Eosinophils % % Basophils % % Neutrophils # (1.3-7.7) k/uL Lymphocytes # (1.0-4.8) k/uL Monocytes # (0-1.0) k/uL Eosinophils # (0-0.7) k/uL Basophils # (0-0.2) k/uL PT (10.0-12.5) sec INR (<1.2) APTT (22.0-30.0) sec Sodium (137-145) mmol/L Potassium (3.5-5.1) mmol/L Chloride (98-107) mmol/L Carbon Dioxide (22-30) mmol/L Anion Gap mmol/L BUN (9-20) mg/dL Creatinine (0.66-1.25) mg/dL Est GFR (CKD-EPI)AfAm (>60 ml/min/1.73 sqM) Est GFR (CKD-EPI)NonAf (>60 ml/min/1.73 sqM) Glucose (74-99) mg/dL Calcium (8.4-10.2) mg/dL Total Bilirubin (0.2-1.3) mg/dL AST (17-59) U/L ALT (4-49) U/L Alkaline Phosphatase (38-126) U/L Creatine Kinase (55-170) U/L Troponin I <0.012 (0.000-0.034) ng/mL Total Protein (6.3-8.2) g/dL Albumin (3.5-5.0) g/dL Disposition Clinical Impression: Stroke Disposition: ADMITTED IP TO THIS HOSP Condition: Fair Referrals: Radha Ortiz MD [Primary Care Provider] - 1-2 days Decision Time: 11:46
[2024-07-11 09:08] LABS: INR 0.9 (<1.2); Prothrombin Time 9.8 sec (10.0-12.5)
--- NOTE | 2024-07-11 09:08 | CT ---
EXAMINATION TYPE: CT brain wo con DATE OF EXAM: 07/11/2024 COMPARISON: 06/23/2024 HISTORY: CODE STROKE CT DLP: 1188.[address] of the brain was performed. The ventricles, basal cisterns and sulci overlying the cerebral convexities demonstrate mild enlargem ent. There is no evidence for intracranial hemorrhage or sulcal effacement. There is decreased attenuation about the periventricular white matter and deep white matter of both c erebral hemispheres, compatible with chronic small vessel ischemia. Differential diagnosis does inclu de demyelination. No mass effects are seen.No midline shift. Osseous calvarium is intact. If symptoms persist consider MRI. IMPRESSION: 1. Age related atrophic and chronic small vessel ischemic change without acute intracranial process s een at this time. [facility], , 07/11/2024 9:05 AM
[2024-07-11 09:16] LABS: ALT 22 U/L (4-49); AST 23 U/L (17-59); African American GFR (CKD) >90 (>60 ml/min/1.73 sqM); Albumin 4.6 g/dL (3.5-5.0); Alkaline Phosphatase 79 U/L (38-126); Anion Gap 6 mmol/L; Blood Urea Nitrogen 17 mg/dL (9-20); Calcium 9.5 mg/dL (8.4-10.2); Carbon Dioxide 35 mmol/L (22-30); Chloride 101 mmol/L (98-107); Creatine Kinase 59 U/L (55-170); Glucose 129 mg/dL (74-99); Non-African American GFR(CKD) >90 (>60 ml/min/1.73 sqM); Potassium 4.5 mmol/L (3.5-5.1); Sodium 142 mmol/L (137-145); Total Bilirubin 0.7 mg/dL (0.2-1.3); Total Protein 7.2 g/dL (6.3-8.2)
--- NOTE | 2024-07-11 09:42 | CT ---
EXAMINATION TYPE: CT angio head neck DATE OF EXAM: 07/11/2024 COMPARISON: None HISTORY: Prior on PACS. Neuro deficit, acute, stroke suspected. CODE STROKE CT DLP: 928.4 mGycm CONTRAST: Performed with IV Contrast, patient injected with 65 ml mL of Isovue 370. Combination Contrast CTA cervical carotids and [place] CTA cervical carotids with 3-D recons truction Contrast CTA of the cervical carotids was performed 3-D reconstruction imaging obtained at a separate workstation. Right carotid system: Mild plaque is seen of the right common carotid artery. There is mild plaque a lso noted at the carotid bulb and proximal ICA. No significant diameter reduction. ECA is patent. Right vertebral artery appears unremarkable. Left carotid system: Mild plaque is seen of the left common carotid artery. There is mild plaque als o noted at the carotid bulb and proximal ICA. No significant diameter reduction. ECA is patent. Lef t vertebral artery appears unremarkable. IMPRESSION: 1. No significant diameter reduction to account for the patient's symptoms. CTA [place] with 3-D reconstruction Contrast CTA of the [place] was performed 3-D reconstruction imaging obtained at a separate workstation. Vertebrobasilar system as well as intracranial portions of the internal carotid arteries and their ma pravin tributaries are patent. I do not see evidence for sizable aneurysm or vascular malformation. Pl ease note MRI provides greater sensitivity and specificity. Visualized brain appears grossly unremar kable. IMPRESSION: 1. No significant abnormality. NASCET criteria was used in interpretation of this exam? [facility], , 07/11/2024 9:39 AM
[2024-07-11] MEDS: SODIUM CHLORIDE 0.9% 1,000 ML IV STA (09:44)
[2024-07-11] MEDS: ONDANSETRON 4 MG/2 ML VIAL IVP STA (09:45)
--- NOTE | 2024-07-11 10:06 | XR ---
EXAMINATION TYPE: XR chest 2V DATE OF EXAM: 07/11/2024 COMPARISON: 06/23/2024 HISTORY: 58-year-old male confusion, altered mental status TECHNIQUE: AP and lateral views FINDINGS: Heart normal size. Aorta and pulmonary vasculature within normal limits. Diffuse interstitial and per ihilar opacities persist but show some improvement from prior exam. Low lung volumes. No pleural effu martha. IMPRESSION: Hypoventilatory changes but with perihilar and interstitial densities. The changes have shown some im provement compared to 06/23/2024. Consider atypical pneumonias or pulmonary vascular congestion. [facility], , 07/11/2024 10:04 AM
[2024-07-11] MEDS ORDERED: NALOXONE 0.4 MG/ML 1 ML VIAL IV PRN (11:46)
[2024-07-11] MEDS: ASPIRIN 81 MG PO STA (11:59)
[2024-07-11 17:14] LABS: Glucose,Whole Blood 107 mg/dL (70-110)
[2024-07-11] MEDS: INSULIN ASPART (NovoLOG) 100 UNIT/ML VIAL SQ SCH ×2 (17:17→17:23)
[2024-07-11] MEDS: GABAPENTIN 400 MG CAP PO SCH (17:18)
[2024-07-11] MEDS: MIDODRINE 5 MG TAB PO SCH (17:23)
[2024-07-11] MEDS: Acetaminophen-Codeine 300-30mg TAB PO PRN (18:08)
[2024-07-11 20:53] LABS: Glucose,Whole Blood 153 mg/dL (70-110)
[2024-07-11] MEDS ORDERED: INSULIN ASPART (NovoLOG) 100 UNIT/ML VIAL SQ SCH (21:00)
--- NOTE | 2024-07-11 21:00 | P.HPIM ---
History of Present Illness H&P Date: 07/11/24 HISTORY OF PRESENT ILLNESS: 58-year-old one of our office patient with active medical history of CVA x 3, history of seizure activity, history of hypertension, type 2 diabetes, hyperlipidemia, coronary artery disease with previous history of stent of the mid LAD, history of squamous cell carcinoma of the lung post right middle lobe lobectomy, multiple hospitalization for questionable of TIA and CVA in the past also multiple hospitalization for intractable nausea and vomiting and severe gastroparesis. Apparently patient was hospitalized last week at [facility] history that he was at the walk-in clinic on [address] . for severe altered mental status with worsening confusion and worsening symptoms most likely hypoxia and hypercapnia connected with what seems to be none treated obstructive sleep apnea with his symptom and severe hypoxia was transferred from [place] to [facility] who was hospitalized for total of 6 days and released this last Wednesday feeling decent he is to stay on oxygen uses updraft treatment and use his CPAP through the night. Apparently has not felt good in the last 48 hours with worsening symptom of feeling ill with sweaty nausea and slight abdominal pain with worsening shortness of breath mild cough wheezing and too drowsy and sleeping the patient claimed his symptoms this time reminded him of his stroke last time in 2019 were finally friend called 911 and EMS came to the scene found patient to have slight tremor in the right hand with right-sided droopy face with mild weakness in the right side had residual stroke with left- sided weakness remain the same but patient does not have any full paralysis in the left side with severe weakness. With his current complaint the weight is with being hypoxic and symptomatic end up going for CT of the brain was compatible with age-related atrophy and chronic small vessel disease without any intracranial hemorrhage or process. Also had CT angiogram shows no significant abnormality [place] looks perfectly fine without any stenosis of the internal carotid and internal mid cerebral artery. Chest x-ray shows hypoventilation change with perihilar and interstitial density the change have shown some improvement compared to June 23 this is considered to be consistent with atypical pneumonia or pulmonary vascular congestion with mild CHF most likely diastolic function. EKG showed ectopic atrial rhythm mostly. Decided to admit patient to the hospital for possible stroke, possible severe hypoxia and worsening respiration.. REVIEW OF SYSTEMS: CONSTITUTIONAL: Well-developed obese lying in bed curving to the right side but no acute respiratory distress. Look like he has mild dystonia curving to the right side. EYES: No icterus sclerae, no conjunctivitis. EARS, NOSE, MOUTH, THROAT, and FACE: No sore throat, lymphadenopathy, carotid bruits or deformity. RESPIRATORY: Decreased breath sound bilaterally with fine rhonchi. CARDIOVASCULAR: No CP, Palpitation, PND, Orthopnea, or angina. GASTROINTESTINAL: Slight abdominal discomfort with nausea no vomiting diarrhea or constipation. GENITOURINARY: Polyuria and nocturia slight hesitancy. INTEGUMENT/BREAST: Negative for any muscular injury with mild osteoarthritis.. HEMATOLOGIC/LYMPHATIC: Negative for bleed or purpura. MUSCULOSKELTAL: Generalized arthralgia and myalgia. NEURLOGICAL: No LOC, Sz or syncope, positive severe dizziness with slight change in vision. BEHAVIORAL/PSYCH: Negative. ENDOCRINE: Negative. SOCIAL HISTORY He quit smoking over 2 years ago 1 ppd for over 40 years. He has history of alcohol abuse but has not had a drink since 2009. Patient is and on disability. He worked as a [employer] and served in the . He does not have any children. Patient is a long-term resident at [facility] in [facility] after history of 3 CVAs and chronic left-sided weakness. He is wheelchair bound and sleeps in a recliner secondary to back pain. FAMILY HISTORY Father is at 78 with history of CVA with history of coronary artery disease status post CABG. Mother is alive at age 77 with history of Parkinson's. Patient has 4 brothers and one sister all living. No children. PHYSICAL EXAMINATION: General Appearance: Alert, cooperative, no distress, appears older disease age hide dystonia coming to the right side. Neck HEENT: Supple, no lymphadenopathy, no thyroid enlargement, no carotid bruits. Lungs: Clear to auscultation without crackles or wheezes no rhonchi, no deformity. Chest Wall: Decreased expansion with deep inspiration no tenderness and no deformity was found on exam, no costochondral pain or discomfort. Heart: Regular rate and rhythm, S1, S2 normal, positive S3 positive systolic murmur. Back: Symmetric, no curvature, ROM normal, positive lower lumbar slight tenderness with mild curvature. Abdomen: Soft, non-tender, bowel sounds active all four quadrants, no masses, no organomegaly. Extremities: extremities normal, atraumatic, no cyanosis or edema. Pulses: 2+ and symmetric. Skin: Skin color, texture, tugor normal, no rashes or lesions. Neurologic: Alert oriented x3 cranial nerves II through XII has slight defect in cranial nerve VII on the right side, severe weakness in the left side but the right upper extremity had significant tremor currently and slight bit weaker compared to before. ASSESSMENT AND PLAN: _ Possible new stroke: With all signs and symptoms consistent with droopy face, generalized weakness in the right side compared to baseline from before, slight slurred speech. Patient be seen neurology if he is able to do an MRI of the brain will be beneficial and helpful. The meanwhile echo and carotid will be ordered. _ History of CVA 4 with residual left-sided paraplegia. Has been on secondary prevention being on Plavix, atorvastatin, and better control of blood pressure and blood sugar. _ Hypertension. Blood pressure remain better control he was running slightly bit low previously was on furosemide and spironolactone but has been doing midodrine to better control the blood pressure. Higher than 100. _ History of non-small cell lung cancer status post right middle lobe lobectomy. _ Chronic pain syndrome under the care of Dr. Parker. Pain pump is in place. Will continue gabapentin 400 mg 4 times a day was on Lyrica early. _ Seizure: With no new activity remain on Keppra 1500 mg twice a day. _ Hyperlipidemia. Continue atorvastatin 80 mg with target for LDL below 70 if still higher we will add Zetia. _ Type 2 diabetes mellitus: Continue Levemir 45 units daily along with NovoLog 25 units AC meals 3 times a day still on Tradjenta continue Accu-Chek sliding scales coverage. _ Diabetic neuropathy. Still doing well on pregabalin. _ History of coronary artery disease status post stent in the mid RCA. Seeing cardiology regularly still on secondary prevention being on Plavix, atorvastatin, and would benefit from smaller dose of beta-elijah. _ Restless leg syndrome. Continue Requip 3 mg 3 times daily. _ Seizure disorder. Continue Keppra 1500 mg twice daily. _ GI prophylaxis and gastroesophageal reflux disease: Will continue Pepcid 20 mg daily. _DVT prophylaxis: Patient will be on Lovenox 40 mg daily. CODE STATUS: Full code. Admit patient to the inpatient service for more than 2 night stay. Past Medical History Past Medical History: Coronary Artery Disease (CAD), Cancer, COPD, CVA/TIA, Diabetes Mellitus, GERD/Reflux, Hyperlipidemia, Hypertension, Myocardial Infarction (IA), Osteoarthritis (OA), Pneumonia, Seizure Disorder, Sleep Apnea/CPAP/BIPAP Additional Past Medical History / Comment(s): LAST SEIZURE 2018; lumbar radiculopathy; neuropathy; no CPAP needed per recent sleep study, hx. lung cancer, cellulitis of both lower legs 2020 Last Myocardial Infarction Date:: 10/22/10 History of Any Multi-Drug Resistant Organisms: None Reported Past Surgical History: Back Surgery, Cholecystectomy, Heart Catheterization With Stent Additional Past Surgical History / Comment(s): LAMINECTOMY ,fusion,spinal stimulator LEFT SHOULDER sx, 07-31-15 revison thoracic laminectomy t10- t11/removal of neuro stimulator and wires removed, fused L1&2 to a cage fusion that was previously put in to L3,4,5. May 27/2018. lobectomy of right middle lung Past Anesthesia/Blood Transfusion Reactions: No Reported Reaction Date of Last Stent Placement:: 10/22/10 Past Psychological History: Depression Smoking Status: Former smoker Past Alcohol Use History: None Reported Past Drug Use History: None Reported - Past Family History Brother(s) Family Medical History: Deep Vein Thrombosis (DVT) Mother Family Medical History: Osteoarthritis (OA) Additional Family Medical History / Comment(s): psoriases, Parkinsons Father Family Medical History: Coronary Artery Disease (CAD) Additional Family Medical History / Comment(s): heart problems- quad bypass, Medications and Allergies Home Medications Medication Instructions Recorded Confirmed Type rOPINIRole HCL [Requip] 3 mg PO Q8H 05/30/19 07/11/24 History Montelukast [Singulair] 10 mg PO HS 07/21/19 07/11/24 History levETIRAcetam [Keppra] 1,500 mg PO BID 05/03/20 07/11/24 History Furosemide [Lasix] 60 mg PO BID@0900,1500 09/06/20 07/11/24 History Atorvastatin [Lipitor] 80 mg PO HS 10/23/20 07/11/24 History Clopidogrel [Plavix] 75 mg PO DAILY 12/06/22 07/11/24 History DULoxetine HCL [Cymbalta] 30 mg PO HS 06/15/23 07/11/24 History Ergocalciferol (Vitamin D2) 1,250 mcg PO ANDERSON 06/15/23 07/11/24 History [Drisdol (50,000 Iu)] Insulin Aspart [NovoLOG Flexpen] 25 units SQ TID-W/MEALS 06/15/23 07/11/24 History Insulin Glargine,Hum.rec.anlog 45 unit SQ BID 06/15/23 07/11/24 History [Basaglar Kwikpen U-100] Midodrine HCl [ProAmatine] 10 mg PO TID 06/15/23 07/11/24 History Empagliflozin [Jardiance] 10 mg PO DAILY 09/15/23 07/11/24 History Gabapentin [Neurontin] 400 mg PO QID 07/11/24 07/11/24 History Meloxicam [Mobic] 15 mg PO DAILY 07/11/24 07/11/24 History Mupirocin 2% Oint [Bactroban 2% 1 applic TOPICAL BID 07/11/24 07/11/24 History Oint] Potassium Chloride [Klor-Con M20] 20 meq PO BID 07/11/24 07/11/24 History Spironolactone [Aldactone] 50 mg PO DAILY 07/11/24 07/11/24 History Tirzepatide [Mounjaro] 7.5 mg SQ SA 07/11/24 07/11/24 History traZODone HCL 150 mg PO DAILY 07/11/24 07/11/24 History Allergies Allergy/AdvReac Type Severity Reaction Status Date / Time No Known Allergies Allergy Verified 07/11/24 09:38 Physical Exam Vitals: Vital Signs Temp Pulse Resp BP Pulse Ox 07/11/24 15:19 94 16 149/97 97 07/11/24 12:00 101 H 18 137/70 99 07/11/24 09:05 98.5 F 99 16 145/70 94 L 07/11/24 08:50 112 H 18 121/106 96 07/11/24 08:35 98 F 114 H 24 133/92 97 Intake and Output 07/11/24 07/11/24 07/11/24 06:59 14:59 22:59 Other: Weight 129.274 kg Results CBC & Chem 7: 07/11/24 08:43 07/11/24 08:43 Labs: Abnormal Lab Results - Last 24 Hours (Table) 07/11/24 07/11/24 07/11/24 Range/Units 08:43 08:43 08:43 Neutrophils # 7.8 H (1.3-7.7) k/uL PT 9.8 L (10.0-12.5) sec Carbon Dioxide 35 H (22-30) mmol/L Glucose 129 H (74-99) mg/dL
[2024-07-11] MEDS: DULoxetine HCL 30 MG CAPSULE.DR PO SCH (21:09)
[2024-07-11] MEDS: POTASSIUM CHLORIDE ER 20 MEQ TAB.ER PO SCH (21:09)
[2024-07-11] MEDS: traZODone HCL 50 MG TAB PO SCH (21:09)
[2024-07-11] MEDS: INSULIN DETEMIR (LEVEMIR) 100 UNIT/ML SYR SQ SCH (21:10)
[2024-07-11] MEDS: MONTELUKAST 10 MG TAB PO SCH (21:10)
[2024-07-11] MEDS: ATORVASTATIN 80 MG TAB PO SCH (21:10)
[2024-07-12 07:04] LABS: Glucose,Whole Blood 153 mg/dL (70-110)
[2024-07-12] MEDS: FUROSEMIDE 20 MG TAB PO SCH (08:24)
[2024-07-12] MEDS: DAPAGLIFLOZIN PROPANEDIOL 5 MG TABLET PO SCH (08:25)
[2024-07-12] MEDS: FAMOTIDINE 20 MG TAB PO SCH (08:25)
[2024-07-12] MEDS: CLOPIDOGREL 75 MG TAB PO SCH (08:25)
[2024-07-12] MEDS: SPIRONOLACTONE 25 MG TAB PO SCH (08:25)
--- NOTE | 2024-07-12 08:44 | US ---
EXAMINATION TYPE: US carotid duplex BILAT DATE OF EXAM: 07/12/2024 COMPARISON: NONE CLINICAL INDICATION: Male, 58 years old with history of CVA; No HTN. Hx stroke 2019. Right side weak ness and slight facial droop with slurred speech. TECHNIQUE: Grayscale, color Doppler and spectral Doppler evaluation of the bilateral carotid systems and vertebral arteries. Indirect Doppler criteria was utilized. FINDINGS: EXAM MEASUREMENTS: RIGHT: Peak Systolic Velocity (PSV) cm/sec ----- Right CCA: 57.0 ----- Right ICA: 129.9 ----- Right ECA: 94.0 ICA/CCA ratio: 2.3 RIGHT: End Diastole cm/sec ----- Right CCA: 10.9 ----- Right ICA: 11.6 ----- Right ECA: 0.0 LEFT: Peak Systolic Velocity (PSV) cm/sec ----- Left CCA: 74.3 ----- Left ICA: 103.0 ----- Left ECA: 143.7 ICA/CCA ratio: 1.4 LEFT: End Diastole cm/sec ----- Left CCA: 11.7 ----- Left ICA: 15.0 ----- Left ECA: 0.0 VERTEBRALS (direction of flow): Right Vertebral: Antegrade Left Vertebral: Antegrade Rhythm: Normal AU PAIR NOTES: Left elevated ECA velocity. Plaque bilateral bulbs seen. IMPRESSION: Measurements suggest a moderate (50-69%) proximal right ICA stenosis. Criteria for Assigning % of Stenosis / Diameter reduction (Estimation based on the indirect measurements of the internal carotid artery velocities (ICA PSV). 1. Normal (no stenosis)=ICA PSV < 125 cm/s: ratio < 2.0: ICA EDV<40 cm/s. 2. Less than 50% stenosis=ICA PSV < 125 cm/s: ratio < 2.0: ICA EDV<40 cm/s. 3. 50 to 69% stenosis=ICA PSV of 125 to 230 cm/s: ration 2.0 ? 4.0: ICA EDV 40-100 cm/s. 4. Greater than 70% stenosis to near occlusion= ICA PSV > 230 cm/s: ratio > 4.0: ICA EDV > 100 cm/s. 5. Near occlusion= ICA PSV velocities may be low or undetectable: variable ratio and ICA EDV. 6. Total occlusion=unable to detect flow. [facility], , 07/12/2024 8:42 AM
--- NOTE | 2024-07-12 11:49 | CA ---
Transthoracic Echo Report Name: Gatito Amaya Age: 58 Gender: M : 1965 Exam Date: 07/12/2024 10:41 Exam Location: [facility] Ht (in): 72 Wt (lb): 285 Ordering Physician: Cal Handy MD Attending/Referring Phys: [employer] Feeder Hillary Dan RDCS Procedure CPT: Indications: lvfunction Cardiac Hx: Technical Quality: Poor, Technically difficult study Contrast 1: Definity Total Dose (mL): 2 Contrast 2: Total Dose (mL): MEASUREMENTS (Male / Female) Normal Values 2D ECHO LV Diastolic Diameter PLAX 4.0 cm 4.2 - 5.9 / 3.9 - 5.3 cm LV Systolic Diameter PLAX 3.3 cm IVS Diastolic Thickness 1.6 cm 0.6 - 1.0 / 0.6 - 0.9 cm LVPW Diastolic Thickness 1.3 cm 0.6 - 1.0 / 0.6 - 0.9 cm LV Relative Wall Thickness 0.7 RV Internal Dim ED PLAX 3.7 cm LA Systolic Diameter LX 1.7 cm 3.0 - 4.0 / 2.7 - 3.8 cm LA Volume 60.1 cm??? 18 - 58 / 22 - 52 cm??? LA Volume Index 23.0 cm???/m??? 16 - 28 cm???/m??? M-MODE Aortic Root Diameter MM 4.0 cm LA Systolic Diameter MM 3.5 cm LA Ao Ratio MM 0.9 AV Cusp Separation MM 2.2 cm DOPPLER MV Area PHT 2.7 cm??? Mitral E Point Velocity 61.2 cm/s Mitral A Point Velocity 71.9 cm/s Mitral E to A Ratio 0.9 MV Deceleration Time 283.4 ms FINDINGS Left Ventricle Left ventricular ejection fraction is estimated at 55-60%. Moderately increased septal wall thickness. No obvious regional wall motion abnormalities. Left ventricular cavity size normal. Right Ventricle Right ventricle not well visualized. Unable to estimate the right ventricular systolic pressure. Right Atrium Mild right atrial dilatation. Left Atrium Mildly increased left atrial volume. Mitral Valve Structurally normal mitral valve. Mitral valve not well visualized. Trace mitral regurgitation. No mitral stenosis. Aortic Valve Aortic valve not well visualized. Trileaflet aortic valve. No aortic regurgitation. No aortic stenosis. Tricuspid Valve Tricuspid valve not well visualized. Trace tricuspid regurgitation. No tricuspid stenosis. Pulmonic Valve Structurally normal pulmonic valve. Trace pulmonic regurgitation. No pulmonic stenosis. Pericardium No pericardial or pleural effusion. Aorta Mild aortic dilatation at the level of the sinuses of valsalva (root). CONCLUSIONS This is a technically difficult and suboptimal study. Echo contrast was used. LV systolic function is normal. Doppler exam is difficult to interpret but I don't think there are any significant abnormalities. No pericardial effusion. Previewed by: Dr. Denis Sotelo MD (Electronically Signed) Final Date: 12 July 2024 11:48
[2024-07-12 11:59] LABS: Glucose,Whole Blood 158 mg/dL (70-110)
--- NOTE | 2024-07-12 12:41 | XR ---
EXAMINATION TYPE: XR lumbar spine 3V DATE OF EXAM: 07/12/2024 Comparison: CT 12/17/2021 and radiograph 06/23/2024 Clinical History: 58-year-old male for MRI clearance Findings: The [id number] was opened to include the lower thoracic spine. Cholecystectomy clips. Posterior an d interbody fusion hardware from L3 through S1 levels with fixed anterolisthesis of L5-S1. Moderate d egenerative disc disease L1-L3 levels. Mild to moderate degenerative disc disease lower thoracic spin e. A new pump device is located along the left flank. While the spinal stimulator lead is not clearly seen, we are able to visualize the punctate radiopaque marker at the T9 level within the spinal golden l. Impression: Punctate lead marker at the T9 level. This suggests a residual lead fragment within the spinal canal. [facility], , 07/12/2024 12:38 PM
[2024-07-12] MEDS: SENNOSIDES-DOCUSATE SODIUM 1 EACH TAB PO SCH (15:11)
[2024-07-12 16:40] LABS: Glucose,Whole Blood 115 mg/dL (70-110)
[2024-07-12 20:15] LABS: Glucose,Whole Blood 136 mg/dL (70-110)
--- NOTE | 2024-07-12 20:41 | P.PN ---
Subjective Progress Note Date: 07/12/24 HISTORY OF PRESENT ILLNESS: 58-year-old one of our office patient with active medical history of CVA x 3, history of seizure activity, history of hypertension, type 2 diabetes, hyp erlipidemia, coronary artery disease with previous history of stent of the mid LAD, history of squamous cell carcinoma of the lung post right middle lobe lobectomy, multiple hospitalization for questionable of TIA and CVA in the past also multiple hospitalization for intractable nausea and vomiting and severe gastroparesis. Apparently patient was hospitalized last week at [facility] history that he was at the walk-in clinic on [address] for severe altered mental status with worsening confusion and worsening symptoms most likely hypoxia and hypercapnia connected with what seems to be none treated obstructive sleep apnea with his symptom and severe hypoxia was transferred from [place] to [facility] who was hospitalized for total of 6 days and released this last Wednesday feeling decent he is to stay on oxygen uses updraft treatment and use his CPAP through the night. Apparently has not felt good in the last 48 hours with worsening symptom of feeling ill with sweaty nausea and slight abdominal pain with worsening shortness of breath mild cough wheezing and too drowsy and sleeping the patient claimed his symptoms this time reminded him of his stroke last time in 2018 were finally friend called 911 and EMS came to the scene found patient to have slight tremor in the right hand with right-sided droopy face with mild weakness in the right side had residual stroke with left- sided weakness remain the same but patient does not have any full paralysis in the left side with severe weakness. With his current complaint the weight is with being hypoxic and symptomatic end up going for CT of the brain was compatible with age-related atrophy and chronic small vessel disease without any intracranial hemorrhage or process. Also had CT angiogram shows no significant abnormality [place] looks perfectly fine without any stenosis of the internal carotid and internal mid cerebral artery. Chest x-ray shows hypoventilation change with perihilar and interstitial density the change have shown some improvement compared to June 23 this is considered to be consistent with atypical pneumonia or pulmonary vascular congestion with mild CHF most likely diastolic function. EKG showed ectopic atrial rhythm mostly. Decided to admit patient to the hospital for possible stroke, possible severe hypoxia and worsening respiration.. 07/12/2024: Blood sugar has been well-controlled, has not seen neurology yet not clear whether patient will be able to go for more precise testing such and an MRI of the brain or not which should be scheduled for now hoping it can be done there is a previous history of neuro stimulator in the lumbar spine but was removed did not look like there is any metallic left at this point patient does not have a pacemaker. His overall complaint of right-sided weakness remain still have mild the tremor has not improved without again would benefit from doing tremor medication I will look into parkinsonism is to be seen after he seen neurology. REVIEW OF SYSTEMS: CONSTITUTIONAL: Well-developed obese lying in bed curving to the right side but no acute respiratory distress. Look like he has mild dystonia curving to the right side. EYES: No icterus sclerae, no conjunctivitis. EARS, NOSE, MOUTH, THROAT, and FACE: No sore throat, lymphadenopathy, carotid bruits or deformity. RESPIRATORY: Decreased breath sound bilaterally with fine rhonchi. CARDIOVASCULAR: No CP, Palpitation, PND, Orthopnea, or angina. GASTROINTESTINAL: Slight abdominal discomfort with nausea no vomiting diarrhea or constipation. GENITOURINARY: Polyuria and nocturia slight hesitancy. INTEGUMENT/BREAST: Negative for any muscular injury with mild osteoarthritis.. HEMATOLOGIC/LYMPHATIC: Negative for bleed or purpura. MUSCULOSKELTAL: Generalized arthralgia and myalgia. NEURLOGICAL: No LOC, Sz or syncope, positive severe dizziness with slight change in vision. BEHAVIORAL/PSYCH: Negative. ENDOCRINE: Negative. PHYSICAL EXAMINATION: General Appearance: Alert, cooperative, no distress, appears older disease age hide dystonia coming to the right side. Neck HEENT: Supple, no lymphadenopathy, no thyroid enlargement, no carotid bruits. Lungs: Clear to auscultation without crackles or wheezes no rhonchi, no deformity. Chest Wall: Decreased expansion with deep inspiration no tenderness and no deformity was found on exam, no costochondral pain or discomfort. Heart: Regular rate and rhythm, S1, S2 normal, positive S3 positive systolic murmur. Back: Symmetric, no curvature, ROM normal, positive lower lumbar slight tenderness with mild curvature. Abdomen: Soft, non-tender, bowel sounds active all four quadrants, no masses, no organomegaly. Extremities: extremities normal, atraumatic, no cyanosis or edema. Pulses: 2+ and symmetric. Skin: Skin color, texture, tugor normal, no rashes or lesions. Neurologic: Alert oriented x3 cranial nerves II through XII has slight defect in cranial nerve VII on the right side, severe weakness in the left side but the right upper extremity had significant tremor currently and slight bit weaker compared to before. ASSESSMENT AND PLAN: _ Possible new stroke: With all signs and symptoms consistent with droopy face, generalized weakness in the right side compared to baseline from before, slight slurred speech. Still waiting to see neurology will order an MRI of the brain. Echo was not done in the last 2 months echo will be done as well. _ History of CVA 4 with residual left-sided paraplegia. Has been on secondary prevention being on Plavix, atorvastatin, and better control of blood pressure and blood sugar. Initiate PT OT will be more helpful. _ Hypertension. Blood pressure remain better control he was running slightly bit low previously was on furosemide and spironolactone but has been doing midodrine to better control the blood pressure. Higher than 100. _ History of non-small cell lung cancer status post right middle lobe lobectomy. No new finding consistent with anything abnormal at this point. _ Chronic pain syndrome under the care of Dr. Parker. Will continue jana apentin 400 mg 4 times a day, on oral hydrocodone currently. _ Seizure: With no new activity remain on Keppra 1500 mg twice a day. Recurrent left tremor patient is having in the right side is not seizure-like activity but more tremor. _Tremor mostly in the right hand and not quite sure if this is phenomenon of tremor itself, seizure, parkinsonism or side effect still have weakness in the right side which stroke could have recreate slightly more problems. _ Hyperlipidemia. Continue atorvastatin 80 mg with target for LDL below 70 if still higher we will add Zetia. _ Type 2 diabetes mellitus: Continue Levemir 45 units daily along with NovoLog 25 units AC meals 3 times a day still on Tradjenta continue Accu-Chek sliding scales coverage. Blood sugar is better so far on current medication. _ Diabetic neuropathy. Still doing well on pregabalin. _ History of coronary artery disease status post stent in the mid RCA. Seeing cardiology regularly still on secondary prevention being on Plavix, atorvastatin, and would benefit from smaller dose of beta-elijah. _ Restless leg syndrome. Continue Requip 3 mg 3 times daily. _ Seizure disorder. Continue Keppra 1500 mg twice daily. Discussion: Still waiting to see neurology, ordered an MRI of the brain, will initiate PT OT today and look for the patient require any extra help or not. Objective - Vital Signs Vital signs: Vital Signs Temp 98.0 F 07/12/24 04:00 Pulse 84 07/12/24 04:00 Resp 17 07/12/24 04:00 BP 115/66 07/12/24 04:00 Pulse Ox 94 L 07/12/24 04:00 FiO2 Intake & Output 07/11/24 07/11/24 07/12/24 06:59 18:59 06:59 Output Total 500 Balance -500 Weight 129.274 kg 129.274 kg Output: Urine 500 Other: Voiding Method Toilet # Voids 0 - Labs CBC & Chem 7: 07/11/24 08:43 07/11/24 08:43 Labs: Abnormal Lab Results - Last 24 Hours (Table) 07/11/24 07/11/24 07/11/24 Range/Units 08:43 08:43 08:43 Neutrophils # 7.8 H (1.3-7.7) k/uL PT 9.8 L (10.0-12.5) sec Carbon Dioxide 35 H (22-30) mmol/L Glucose 129 H (74-99) mg/dL POC Glucose (mg/dL) (70-110) mg/dL 07/11/24 Range/Units 20:51 Neutrophils # (1.3-7.7) k/uL PT (10.0-12.5) sec Carbon Dioxide (22-30) mmol/L Glucose (74-99) mg/dL POC Glucose (mg/dL) 153 H (70-110) mg/dL
[2024-07-12] MEDS ORDERED: traZODone HCL 50 MG TAB PO SCH (21:00)
[2024-07-12 21:20] LABS: Glucose,Whole Blood 150 mg/dL (70-110)
--- NOTE | 2024-07-12 21:56 | CT ---
EXAMINATION TYPE: CT brain wo con CT DLP: 1222.7 mGycm, Automated exposure control for dose reduction was used. DATE OF EXAM: 07/12/2024 9:45 PM COMPARISON: 07/11/2024. CLINICAL INDICATION: Male, 58 years old with history of neuro changes, lethargic, neuro changes, leth argic TECHNIQUE: Brain: Axial CT images of the brain were obtained with coronal and sagittal reformats created and rev iewed. Contrast used: None. Oral contrast used: None. FINDINGS: Brain: Extra-axial spaces: No abnormal extra-axial fluid collections. Ventricular system: Within normal limits Cerebral parenchyma: No acute intraparenchymal hemorrhage or mass effect. The wolf-white junction is well differentiated. Cerebellum: Unremarkable. Mass effect: No evidence of midline shift. Intracranial vasculature: unremarkable Soft tissues: Normal. Calvarium/osseous structures: No depressed skull fracture. Paranasal sinuses and mastoid air cells: Mild scattered paranasal sinus disease. Visualized orbits: Orbital contents are intact. IMPRESSION: No acute intracranial process. [facility], , 07/12/2024 9:54 PM
[2024-07-13 06:11] LABS: Glucose,Whole Blood 134 mg/dL (70-110)
--- NOTE | 2024-07-13 08:19 | P.DS ---
Providers Date of admission: 07/11/24 11:46 Attending physician: Cal Handy Consults: 07/12/24 20:40 Consult Physician Routine Consulting Provider: Amado Carranza Consult Reason/Comments: CVA Do you want consulting provider notified?: Yes Primary care physician: [facility] Course: HISTORY OF PRESENT ILLNESS: 58-year-old one of our office patient with active medical history of CVA x 3, history of seizure activity, history of hypertension, type 2 diabetes, hyperlipidemia, coronary artery disease with previous history of stent of the mid LAD, history of squamous cell carcinoma of the lung post right middle lobe lobectomy, multiple hospitalization for questionable of TIA and CVA in the past also multiple hospitalization for intractable nausea and vomiting and severe gastroparesis. Apparently patient was hospitalized last week at [facility] history that he was at the walk-in clinic on [address] for severe altered mental status with worsening confusion and worsening symptoms most likely hypoxia and hypercapnia connected with what seems to be none treated obstructive sleep apnea with his symptom and severe hypoxia was transferred from [place] to [facility] who was hospitalized for total of 6 days and released this last Wednesday feeling decent he is to stay on oxygen uses updraft treatment and use his CPAP through the night. Apparently has not felt good in the last 48 hours with worsening symptom of feeling ill with sweaty nausea and slight abdominal pain with worsening shortness of breath mild cough wheezing and too drowsy and sleeping the patient claimed his symptoms this time reminded him of his stroke last time in 2019 were finally friend called 911 and EMS came to the scene found patient to have slight tremor in the right hand with right-sided droopy face with mild weakness in the right side had residual stroke with left- sided weakness remain the same but patient does not have any full paralysis in the left side with severe weakness. With his current complaint the weight is with being hypoxic and symptomatic end up going for CT of the brain was compatible with age-related atrophy and chronic small vessel disease without any intracranial hemorrhage or process. Also had CT angiogram shows no significant abnormality [place] looks perfectly fine without any stenosis of the internal carotid and internal mid cerebral artery. Chest x-ray shows hypoventilation change with perihilar and interstitial density the change have shown some improvement compared to June 23 this is considered to be consistent with atypical pneumonia or pulmonary vascular congestion with mild CHF most likely diastolic function. EKG showed ectopic atrial rhythm mostly. Decided to admit patient to the hospital for possible stroke, possible severe hypoxia and worsening respiration.. 07/12/2024: Blood sugar has been well-controlled, has not seen neurology yet not clear whether patient will be able to go for more precise testing such and an MRI of the brain or not which should be scheduled for now hoping it can be done there is a previous history of neuro stimulator in the lumbar spine but was re moved did not look like there is any metallic left at this point patient does not have a pacemaker. His overall complaint of right-sided weakness remain still have mild the tremor has not improved without again would benefit from doing tremor medication I will look into parkinsonism is to be seen after he seen neurology. 07/09/2024: After ordering the MRI and going through the process the patient could not go through with he has a nerve stimulator in his back which is metallic will prevent him from doing an MRI. His neurology consultation was delayed and is currently happening today. Also patient had seen the geriatric social work professor and he is planning to return home does not want go to SNF evaluation by physical therapy and apparently demonstrate safety and independence he and mobility with a walker and wheelchair. And patient is not interested to go to any rehab he wants to just the nurse and PT at home. Blood sugar has been running good so far and vital signs are pretty normal, his droopy face has improved the tremor in the right side is significantly better and he is weakness has improved. Plan at this point specially with patient medication he is remain on Plavix 75 mg a day he is on antiseizure as well should be able to have conclusion with neurology for probably transportation back home and having him follow-up as an outpatient with his neurologist next 2 weeks. REVIEW OF SYSTEMS: CONSTITUTIONAL: Well-developed obese lying in bed curving to the right side but no acute respiratory distress. Look like he has mild dystonia curving to the right side. EYES: No icterus sclerae, no conjunctivitis. EARS, NOSE, MOUTH, THROAT, and FACE: No sore throat, lymphadenopathy, carotid bruits or deformity. RESPIRATORY: Decreased breath sound bilaterally with fine rhonchi. CARDIOVASCULAR: No CP, Palpitation, PND, Orthopnea, or angina. GASTROINTESTINAL: Slight abdominal discomfort with nausea no vomiting diarrhea or constipation. GENITOURINARY: Polyuria and nocturia slight hesitancy. INTEGUMENT/BREAST: Negative for any muscular injury with mild osteoarthritis.. HEMATOLOGIC/LYMPHATIC: Negative for bleed or purpura. MUSCULOSKELTAL: Generalized arthralgia and myalgia. NEURLOGICAL: No LOC, Sz or syncope, positive severe dizziness with slight change in vision. BEHAVIORAL/PSYCH: Negative. ENDOCRINE: Negative. PHYSICAL EXAMINATION: General Appearance: Alert, cooperative, no distress, appears older disease age hide dystonia coming to the right side. Neck HEENT: Supple, no lymphadenopathy, no thyroid enlargement, no carotid bruits. Lungs: Clear to auscultation without crackles or wheezes no rhonchi, no deformity. Chest Wall: Decreased expansion with deep inspiration no tenderness and no d eformity was found on exam, no costochondral pain or discomfort. Heart: Regular rate and rhythm, S1, S2 normal, positive S3 positive systolic murmur. Back: Symmetric, no curvature, ROM normal, positive lower lumbar slight tenderness with mild curvature. Abdomen: Soft, non-tender, bowel sounds active all four quadrants, no masses, no organomegaly. Extremities: extremities normal, atraumatic, no cyanosis or edema. Pulses: 2+ and symmetric. Skin: Skin color, texture, tugor normal, no rashes or lesions. Neurologic: Alert oriented x3 cranial nerves II through XII has slight defect in cranial nerve VII on the right side, severe weakness in the left side but the right upper extremity had significant tremor currently and slight bit weaker compared to before. ASSESSMENT AND PLAN: _ Possible new stroke: With all signs and symptoms consistent with droopy face, generalized weakness in the right side compared to baseline from before, slight slurred speech. MRI could not be done because of neurostimulator Patient still waiting to see neurology meanwhile continue physical therapy which patient has done well no further droopy face slurred speech on the right side tremor is not there. _ History of CVA 4 with residual left-sided paraplegia. Has been on secondary prevention being on Plavix, atorvastatin, and better control of blood pressure and blood sugar. Initiate PT OT will be more helpful. He did well with physical therapy will titrate physical therapy and do physical therapy at home. _ Hypertension. Blood pressure remain better control he was running slightly bit low previously was on furosemide and spironolactone but has been doing midodrine to better control the blood pressure. Higher than 100. _ History of non-small cell lung cancer status post right middle lobe lobectomy. No new finding consistent with anything abnormal at this point. _ Chronic pain syndrome under the care of Dr. Parker. Will continue gabapentin 400 mg 4 times a day, on oral hydrocodone currently. _ Seizure: With no new activity remain on Keppra 1500 mg twice a day. Recurrent left tremor patient is having in the right side is not seizure-like activity but more tremor. _Tremor mostly in the right hand and not quite sure if this is phenomenon of tremor itself, seizure, parkinsonism or side effect still have weakness in the right side which stroke could have recreate slightly more problems. _ Hyperlipidemia. Continue atorvastatin 80 mg with target for LDL below 70 if still higher we will add Zetia. _ Type 2 diabetes mellitus: Continue Levemir 45 units daily along with NovoLog 25 units AC meals 3 times a day still on Tradjenta continue Accu-Chek sliding scales coverage. Blood sugar is better so far on current medication. _ Diabetic neuropathy. Still doing well on pregabalin. _ History of coronary artery disease status post stent in the mid RCA. Seeing cardiology regularly still on secondary prevention being on Plavix, atorvastatin, and would benefit from smaller dose of beta-elijah. _ Restless leg syndrome. Continue Requip 3 mg 3 times daily. Discussion: The patient has been doing well his disability from what happened recently when hospitalized at [facility] and at this time does not change his ability to function he is on hospital wheelchair and limited help he lives in a senior housing apparently done better with physical therapy. Still waiting for neurology to see hand that he could not do MRI of brain will drop things up and probably patient can go home with physical therapy. Hospital course: He was hospitalized on 07/11/2024 5 days after being released from [facility] for severe hypoxia and altered mental status was defined to be hypoxia and hypercapnia not using his CPAP and his oxygen the right way. Patient brought to the emergency department by EMS with increased tremor in the right side along with strokelike symptoms with droopy face and increased weakness he is CT of the brain shows small vessel disease with an old injury, no intracranial hemorrhage or process CT angiography shows no major abnormality carotid artery to be with mild stenosis. EKG does not show any A-fib with slight ectopy only. Rest of his testing came to be clear. Patient initiate physical therapy attempt to do an MRI of the brain cardiology close has metallic lead stimulator in the spine could not go to an MRI machine. Patient seen neurology on more regular basis for pain management and for his old stroke which will be arranged for him to go back to see his old neurologist as an outpatient in the meanwhile patient still with seen neurology in house which probably will agree to continue anticoagulation with Plavix and probably baby aspirin and patient has the potential to be discharged home today on 07/13/2024. Time spent on patient discharge was over 32 minutes. Patient Condition at Discharge: Fair Plan - Discharge Summary Discharge Rx Participant: No New Discharge Prescriptions: New Famotidine [Pepcid] 20 mg PO DAILY #30 tab Sennosides-Docusate Sodium [Senokot-S] 1 each PO BID tab Acetaminophen-Codeine 300-30mg [Tylenol w/codeine #3] 1 each PO Q6HR PRN #12 tab PRN Reason: Pain Continue rOPINIRole HCL [Requip] 3 mg PO Q8H Montelukast [Singulair] 10 mg PO HS levETIRAcetam [Keppra] 1,500 mg PO BID Furosemide [Lasix] 60 mg PO BID@0900,1500 Atorvastatin [Lipitor] 80 mg PO HS Clopidogrel [Plavix] 75 mg PO DAILY Midodrine HCl [ProAmatine] 10 mg PO TID Ergocalciferol (Vitamin D2) [Drisdol (50,000 Iu)] 1,250 mcg PO ANDERSON DULoxetine HCL [Cymbalta] 30 mg PO HS Insulin Glargine,Hum.rec.anlog [Basaglar Kwikpen U-100] 45 unit SQ BID Gabapentin [Neurontin] 400 mg PO QID Mupirocin 2% Oint [Bactroban 2% Oint] 1 applic TOPICAL BID Potassium Chloride [Klor-Con M20] 20 meq PO BID Insulin Aspart [NovoLOG Flexpen] 25 units SQ TID-W/MEALS Empagliflozin [Jardiance] 10 mg PO DAILY Meloxicam [Mobic] 15 mg PO DAILY Spironolactone [Aldactone] 50 mg PO DAILY Tirzepatide [Mounjaro] 7.5 mg SQ SA traZODone HCL 150 mg PO DAILY Discharge Medication List rOPINIRole HCL [Requip] 3 mg PO Q8H 09/10/19 [History] Montelukast [Singulair] 10 mg PO HS 07/21/19 [History] levETIRAcetam [Keppra] 1,500 mg PO BID 05/03/20 [History] Furosemide [Lasix] 60 mg PO BID@0900,1500 09/06/20 [History] Atorvastatin [Lipitor] 80 mg PO HS 10/23/20 [History] Clopidogrel [Plavix] 75 mg PO DAILY 12/06/22 [History] DULoxetine HCL [Cymbalta] 30 mg PO HS 06/15/23 [History] Ergocalciferol (Vitamin D2) [Drisdol (50,000 Iu)] 1,250 mcg PO ANDERSON 06/15/23 [History] Insulin Aspart [NovoLOG Flexpen] 25 units SQ TID-W/MEALS 06/15/23 [History] Insulin Glargine,Hum.rec.anlog [Basaglar Kwikpen U-100] 45 unit SQ BID 06/15/23 [History] Midodrine HCl [ProAmatine] 10 mg PO TID 06/15/23 [History] Empagliflozin [Jardiance] 10 mg PO DAILY 09/15/23 [History] Gabapentin [Neurontin] 400 mg PO QID 07/11/24 [History] Meloxicam [Mobic] 15 mg PO DAILY 07/11/24 [History] Mupirocin 2% Oint [Bactroban 2% Oint] 1 applic TOPICAL BID 07/11/24 [History] Potassium Chloride [Klor-Con M20] 20 meq PO BID 07/11/24 [History] Spironolactone [Aldactone] 50 mg PO DAILY 07/11/24 [History] Tirzepatide [Mounjaro] 7.5 mg SQ SA 07/11/24 [History] traZODone HCL 150 mg PO DAILY 07/11/24 [History] Acetaminophen-Codeine 300-30mg [Tylenol w/codeine #3] 1 each PO Q6HR PRN #12 tab 07/13/24 [Rx] Famotidine [Pepcid] 20 mg PO DAILY #30 tab 07/13/24 [Rx] Sennosides-Docusate Sodium [Senokot-S] 1 each PO BID tab 07/13/24 [Rx] Follow up Appointment(s)/Referral(s): Radha Ortiz MD [Primary Care Provider] - 1-2 days Casey Rodas DO [Doctor of Osteopathic Medicine] - 4 Weeks Ana Parker MD [Medical Doctor] - 1 Week [facility] Visiting Nurse, [NON-STAFF] - Discharge Disposition: HOME WITH HOME HEALTH SERVICES
[2024-07-13 11:50] LABS: Glucose,Whole Blood 123 mg/dL (70-110)
--- NOTE | 2024-07-13 12:58 | P.GSCN ---
History of Present Illness Consult date: 07/13/24 Reason for Consult: Carotid stenosis Requesting physician: Cal Handy History of present illness: This a pleasant 58-year-old male who presented to the emergency department for concerns of possible stroke. States he was not feeling well he became sweaty and nauseous. He has a past medical history of CVA with residual left-sided weakness, coronary artery disease, lung cancer, COPD, diabetes mellitus, hyperlipidemia, hypertension, [place], and morbid obesity. He had a workup for possible stroke. Brain CT showed age-related atrophic and chronic small vessel ischemic change without acute intracranial process. He had a CT angiogram head and neck that found no significant stenosis. Carotid duplex reports 50 to 69% stenosis of the right ICA. Vascular surgery was consulted for carotid stenosis. Patient denies any new focal deficits. He states that he has residual left- sided weakness. States his other symptoms have resolved. He is currently sitting up and eating. There are discharge orders already placed. Review of Systems A 14 point review systems was completed all pertinent positives and negatives as stated in the HPI. Past Medical History Past Medical History: Coronary Artery Disease (CAD), Cancer, COPD, CVA/TIA, Diabetes Mellitus, GERD/Reflux, Hyperlipidemia, Hypertension, Myocardial Infarction ([place]), Osteoarthritis (OA), Pneumonia, Seizure Disorder, Sleep Apnea/CPAP/BIPAP Additional Past Medical History / Comment(s): LAST SEIZURE 2018; lumbar radiculopathy; neuropathy; no CPAP needed per recent sleep study, hx. lung cancer, cellulitis of both lower legs 2020 Last Myocardial Infarction Date:: 10/22/10 History of Any Multi-Drug Resistant Organisms: None Reported Past Surgical History: Back Surgery, Cholecystectomy, Heart Catheterization With Stent Additional Past Surgical History / Comment(s): LAMINECTOMY ,fusion,spinal stimulator LEFT SHOULDER sx, 07-31-15 revison thoracic laminectomy t10-t1 1/removal of neuro stimulator and wires removed, fused L1&2 to a cage fusion that was previously put in to L3,4,5. May 27/2018. 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 Smoking Status: Former smoker Past Alcohol Use History: None Reported Additional Past Alcohol Use History / Comment(s): STARTED SMOKING 1977. Unable to obtain stopped smoking date. Past Drug Use History: None Reported Additional Drug Use History / Comment(s): HAS A MEDICAL MARIJUANA CARD-no current use. - Past Family History Brother(s) Family Medical History: Deep Vein Thrombosis (DVT) Mother Family Medical History: Osteoarthritis (OA) Additional Family Medical History / Comment(s): psoriases, Parkinsons Father Family Medical History: Coronary Artery Disease (CAD) Additional Family Medical History / Comment(s): heart problems- quad bypass, Medications and Allergies Home Medications Medication Instructions Recorded Confirmed Type rOPINIRole HCL [Requip] 3 mg PO Q8H 05/30/19 07/11/24 History Montelukast [Singulair] 10 mg PO HS 07/21/19 07/11/24 History levETIRAcetam [Keppra] 1,500 mg PO BID 05/03/20 07/11/24 History Furosemide [Lasix] 60 mg PO BID@0900,1500 09/06/20 07/11/24 History Atorvastatin [Lipitor] 80 mg PO HS 10/23/20 07/11/24 History Clopidogrel [Plavix] 75 mg PO DAILY 12/06/22 07/11/24 History DULoxetine HCL [Cymbalta] 30 mg PO HS 06/15/23 07/11/24 History Ergocalciferol (Vitamin D2) 1,250 mcg PO ANDERSON 06/15/23 07/11/24 History [Drisdol (50,000 Iu)] Insulin Aspart [NovoLOG Flexpen] 25 units SQ TID-W/MEALS 06/15/23 07/11/24 History Insulin Glargine,Hum.rec.anlog 45 unit SQ BID 06/15/23 07/11/24 History [Basaglar Kwikpen U-100] Midodrine HCl [ProAmatine] 10 mg PO TID 06/15/23 07/11/24 History Empagliflozin [Jardiance] 10 mg PO DAILY 09/15/23 07/11/24 History Gabapentin [Neurontin] 400 mg PO QID 07/11/24 07/11/24 History Meloxicam [Mobic] 15 mg PO DAILY 07/11/24 07/11/24 History Mupirocin 2% Oint [Bactroban 2% 1 applic TOPICAL BID 07/11/24 07/11/24 History Oint] Potassium Chloride [Klor-Con M20] 20 meq PO BID 07/11/24 07/11/24 History Spironolactone [Aldactone] 50 mg PO DAILY 07/11/24 07/11/24 History Tirzepatide [Mounjaro] 7.5 mg SQ SA 07/11/24 07/11/24 History traZODone HCL 150 mg PO DAILY 07/11/24 07/11/24 History Acetaminophen-Codeine 300-30mg 1 each PO Q6HR PRN #12 tab 07/13/24 Rx [Tylenol w/codeine #3] Famotidine [Pepcid] 20 mg PO DAILY #30 tab 07/13/24 Rx Sennosides-Docusate Sodium 1 each PO BID tab 07/13/24 Rx [Senokot-S] Allergies Allergy/AdvReac Type Severity Reaction Status Date / Time No Known Allergies Allergy Verified 07/11/24 09:38 Surgical - Exam Vital Signs Temp Pulse Resp BP Pulse Ox 98 F 114 H 24 133/92 97 07/11/24 08:35 07/11/24 08:35 07/11/24 08:35 07/11/24 08:35 07/11/24 08:35 General appearance: The patient is alert, oriented, appears in no acute distress. HET: Head is normocephalic and atraumatic. Pupils are equal and reactive. Neck: Supple. No carotid bruit Heart: Regular. Lungs: Equal expansion, normal respiratory effort. Abdomen: Soft, nontender, nondistended. Extremities: Normal skin color and turgor. Neurological: Left-sided weakness. Right upper and lower extremity with good strength and tone. Results - Labs 07/11/24 08:43 07/11/24 08:43 Abnormal Lab Results - Last 24 Hours (Table) 07/12/24 07/12/24 07/12/24 Range/Units 11:58 16:38 20:13 POC Glucose (mg/dL) 158 H 115 H 136 H (70-110) mg/dL 07/12/24 07/13/24 Range/Units 21:18 06:10 POC Glucose (mg/dL) 150 H 134 H (70-110) mg/dL - Imaging Comments: CT angiogram head and neck reports no significant diameter reduction to account for the patient's symptoms Carotid duplex reports measurements suggest a moderate 50 to 69% proximal right ICA stenosis Assessment and Plan Assessment: 1. Asymptomatic right ICA stenosis 50 to 69% 2. History of stroke with residual left-sided weakness 3. Coronary artery disease 4. Hyperlipidemia 5. Hyper tension 6. Morbid obesity 7. Diabetes mellitus Plan: Recommend patient follow-up with Dr. Rodas in the office and can repeat carotid duplex as CTA and carotid Doppler are with discordant findings. There is no indication for any vascular surgical intervention at this time. Patient is cleared from vascular surgery for discharge. The impression and plan of care has been dictated as directed. I performed a history and examination of this patient, discussed the same with the dictator. I agree with the dictator's note ,documented as a scribe. Any additional findings or plans will be noted.
--- NOTE | 2024-07-13 15:17 | P.CNNES ---
History of Present Illness Consult date: 07/13/24 Requesting physician: Cal Handy Reason for Consult: cva History of Present Illness: This is a 58-year-old gentleman medical history of stroke with residual left hemiparesis, seizure on Keppra,, chronic back pain and he has fusion over the lumbar 1-5 and has pain pump lung cancer presented emergency department the patient stated that he did not feel well this Wednesday and he felt very sweaty and again did not feel right. Patient states he is compliant taking his seizure medication. His last seizure he thinks may be was in 2021. Speech is slightly more slurred than baseline. Denies any new focal deficit. Patient is on Plavix 75 mg as well as Lipitor 80 mg nightly. Follows up with Dr. Parker's team for neurological care and pain care. He stated he s only wheel chair bound but per the nurse he uses walker. Seems that yesterday at nighttime I was notified by the nurse the patient was responding appropriately then within a few minutes when she went back to see him he was confused but she denies any jerking of any extremity, any drooling, any fixed gaze deviation, patient did not have any urinary or bowel incontinence. Patient had a repeat CT of the head which was unremarkable. Some of the workup during this hospital visit consisted of: Reviewed the labs. CT of the head is reported as age-related atrophy and chronic small vessel ischemic change without acute intracranial process seen at this time. CT angiography of the head and neck is reported as no significant diameter reduction to account for the patient's symptoms. No significant abnormality Repeat CT of the head later on 07/12/2024 at nighttime is reported as no acute intracranial process. I personally reviewed the CT and agree with report. Personally do not see any encephalomalacia that would explain the patient's left hemiparesis. Limited 2D echo was reported as technically difficult suboptimal study. Echo contrast was used. Left ventricular systolic function is normal. Doppler exam is difficult to interpret but I do not think there is any significant abnormality. No pericardial effusion. Reviewed prior images of MRI of the brain that the patient had an August 06, 2018 and it is reported as despite the patient left-sided weakness and slurring there is no area of restricted diffusion to indicate acute infarct. Review of Systems The positive and negative as per HPI. Past Medical History Past Medical History: Coronary Artery Disease (CAD), Cancer, COPD, CVA/TIA, Diabetes Mellitus, GERD/Reflux, Hyperlipidemia, Hypertension, Myocardial Infarc tion ([place]), Osteoarthritis (OA), Pneumonia, Seizure Disorder, Sleep Apnea/CPAP/BIPAP Additional Past Medical History / Comment(s): LAST SEIZURE 2018; lumbar radiculopathy; neuropathy; no CPAP needed per recent sleep study, hx. lung cancer, cellulitis of both lower legs 2020 Last Myocardial Infarction Date:: 10/22/10 History of Any Multi-Drug Resistant Organisms: None Reported Past Surgical History: Back Surgery, Cholecystectomy, Heart Catheterization With Stent Additional Past Surgical History / Comment(s): LAMINECTOMY ,fusion,spinal stimulator LEFT SHOULDER sx, 07-31-15 revison thoracic laminectomy t10- t11/removal of neuro stimulator and wires removed, fused L1&2 to a cage fusion that was previously put in to L3,4,5. May 27/2018. 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 Smoking Status: Former smoker Past Alcohol Use History: None Reported Additional Past Alcohol Use History / Comment(s): STARTED SMOKING 1977. Unable to obtain stopped smoking date. Past Drug Use History: None Reported Additional Drug Use History / Comment(s): HAS A MEDICAL MARIJUANA CARD-no cur rent use. - Past Family History Brother(s) Family Medical History: Deep Vein Thrombosis (DVT) Mother Family Medical History: Osteoarthritis (OA) Additional Family Medical History / Comment(s): psoriases, Parkinsons Father Family Medical History: Coronary Artery Disease (CAD) Additional Family Medical History / Comment(s): heart problems- quad bypass, Medications and Allergies Home Medications Medication Instructions Recorded Confirmed Type rOPINIRole HCL [Requip] 3 mg PO Q8H 05/30/19 07/11/24 History Montelukast [Singulair] 10 mg PO HS 07/21/19 07/11/24 History levETIRAcetam [Keppra] 1,500 mg PO BID 05/03/20 07/11/24 History Furosemide [Lasix] 60 mg PO BID@0900,1500 09/06/20 07/11/24 History Atorvastatin [Lipitor] 80 mg PO HS 10/23/20 07/11/24 History Clopidogrel [Plavix] 75 mg PO DAILY 12/06/22 07/11/24 History DULoxetine HCL [Cymbalta] 30 mg PO HS 06/15/23 07/11/24 History Ergocalciferol (Vitamin D2) 1,250 mcg PO ANDERSON 06/15/23 07/11/24 History [Drisdol (50,000 Iu)] Insulin Aspart [NovoLOG Flexpen] 25 units SQ TID-W/MEALS 06/15/23 07/11/24 Histo ry Insulin Glargine,Hum.rec.anlog 45 unit SQ BID 06/15/23 07/11/24 History [Basaglar Kwikpen U-100] Midodrine HCl [ProAmatine] 10 mg PO TID 06/15/23 07/11/24 History Empagliflozin [Jardiance] 10 mg PO DAILY 09/15/23 07/11/24 History Gabapentin [Neurontin] 400 mg PO QID 07/11/24 07/11/24 History Meloxicam [Mobic] 15 mg PO DAILY 07/11/24 07/11/24 History Mupirocin 2% Oint [Bactroban 2% 1 applic TOPICAL BID 07/11/24 07/11/24 History Oint] Potassium Chloride [Klor-Con M20] 20 meq PO BID 07/11/24 07/11/24 History Spironolactone [Aldactone] 50 mg PO DAILY 07/11/24 07/11/24 History Tirzepatide [Mounjaro] 7.5 mg SQ SA 07/11/24 07/11/24 History traZODone HCL 150 mg PO DAILY 07/11/24 07/11/24 History Acetaminophen-Codeine 300-30mg 1 each PO Q6HR PRN #12 tab 07/13/24 Rx [Tylenol w/codeine #3] Famotidine [Pepcid] 20 mg PO DAILY #30 tab 07/13/24 Rx Sennosides-Docusate Sodium 1 each PO BID tab 07/13/24 Rx [Senokot-S] Allergies Allergy/AdvReac Type Severity Reaction Status Date / Time No Known Allergies Allergy Verified 07/11/24 09:38 Physical Examination - Vital Signs Vital Signs: Vital Signs Temp Pulse Resp BP Pulse Ox 07/13/24 12:40 97.7 F 79 16 115/76 07/13/24 07:26 98.6 F 74 16 110/58 07/13/24 06:03 119/63 07/13/24 04:00 97.7 F 72 17 116/77 98 07/13/24 00:00 97.6 F 63 16 97/64 98 07/12/24 21:15 71 16 113/66 99 07/12/24 20:13 97.4 F L 64 17 114/72 98 07/12/24 15:12 78 16 106/57 96 Intake and Output 07/12/24 07/13/24 07/13/24 22:59 06:59 14:59 Intake Total 716 Output Total 650 Balance -650 716 Intake: Oral 716 Output: Urine 650 Other: Voiding Method Toilet Toilet Toilet # Voids 1 2 # Bowel Movements 1 1 Weight 135.4 kg GENERAL: The patient is sitting on bed and is not in acute distress. NEUROLOGICAL: Higher mental function: The patient is awake, alert, oriented to self, place and time. Patient is following commands. No aphasia and no neglect. Cranial nerves: The pupils are round, equal and reactive to light and accommodation. Visual hernandes are full to confrontation throughout. Extraocular movement is intact no nystagmus is noted. Facial sensation is normal to touch throughout. The facial strength is normal throughout. Hearing is normal bilaterally to hand rub. Tongue is midline and moved [id number] without any difficulty. Mild to moderate dysarthria is noted. Shoulder shrug is normal bilaterally. Motor: The strength is left upper extremity is 4+ and felt there is some effort related and improving with motivation. Left lower proximally is 2-3 while distally is 4- and again felt some effort related. Right side 5 over 5 throughout. Normal tone and bulk. Cerebellum: Normal finger to nose bilaterally. Sensation: Sensation is normal to touch throughout. Reflexes (right/left): 2+ throughout. Plantars are mute bilaterally. Results - Laboratory Findings CBC and BMP: 07/11/24 08:43 07/11/24 08:43 Abnormal Lab Findings: Abnormal Labs 10/07/11/24 07/11/24 08:43 08:43 08:43 Neutrophils # 7.8 H PT 9.8 L Carbon Dioxide 35 H Glucose 129 H POC Glucose (mg/dL) 07/11/24 07/12/24 07/12/24 20:51 07:02 11:58 Neutrophils # PT Carbon Dioxide Glucose POC Glucose (mg/dL) 153 H 153 H 158 H 07/12/24 07/12/24 07/12/24 16:38 20:13 21:18 Neutrophils # PT Carbon Dioxide Glucose POC Glucose (mg/dL) 115 H 136 H 150 H 07/13/24 07/13/24 06:10 11:48 Neutrophils # PT Carbon Dioxide Glucose POC Glucose (mg/dL) 134 H 123 H Assessment and Plan Assessment: This is a 58-year-old gentleman with a history of reported stroke with residual left-sided weakness had MRI of the brain in 2018 for continued left-sided weakness and dysarthria and is reported there is no evidence of any stroke. He also has a history of seizure and he stated his last seizure was in 2021, diabetes mellitus, chronic back pain with lumbar fusion and has a pain pump who presented emergency department because he stated that he was not feeling well and felt sweaty this past Wednesday. Yesterday at nighttime according to the nurse she was doing well but all of a sudden he was confused but no jerking of extremity no foaming around the mouth no fixed gaze deviation. Patient had 2 CT of the head in our facility which were unremarkable. Episode of transient encephalopathy and feeling sweating: Unknown Exact etiology. Rule out seizure. I feel unlikely TIA but cannot excluded. Another differential is functional History of stroke with residual left hemiparesis and dysarthria. It seems in 2018 because of left persistent left sided weakness and dysarthria had MRI of the brain which was unremarkable for any stroke. He notified me that he is wheelchair-bound but per the nurse uses a walker. History of seizure and he stated the last seizure was in 2021 and he is on Keppra 1500 mg twice daily. Diabetes mellitus History of coronary artery status post History of squamous cell carcinoma of the lung status post right middle lobectomy Plan: Cannot obtain MRI of the brain as inpatient since patient has pain pump. Recommend MRI of the brain and cervical spine as an outpatient by his outpatient neurologist (Dr. Parker) if possible. Ordered routine EEG Had prior CT cervical spine in our facility and is reported as mild multilevel degenerative disc disease. Patient is resumed on his home medication Plavix 75 mg, Lipitor 80 mg nightly. He is on home medication of Keppra 1500 mg twice daily. I highly recommend if the EEG is negative and patient continues to have recurrent neurological issues for a prolonged EEG as an outpatient that could be coordinated by his outpatient neurologist. Duplex is reported as moderate proximal right ICA stenosis. CT angiography's were unremarkable for any moderate to severe stenosis bilaterally. Vascular surgery is consulted Continue neurochecks Cardiac monitoring PT OT are consulted Will defer the rest of the medical management to primary and other specialist. On discharge recommend the patient to follow-up with his outpatient neurologist, Dr. Parkre within 2 weeks. The plan is discussed with patient and his nurse. Thank you for the consultation. Time with Patient: Greater than 30
[2024-07-13 16:31] LABS: Glucose,Whole Blood 103 mg/dL (70-110)
[2024-07-13 20:17] LABS: Glucose,Whole Blood 184 mg/dL (70-110)
[2024-07-13] MEDS: ONDANSETRON 4 MG/2 ML VIAL IVP PRN (21:18)
[2024-07-14 03:39] VITALS: RESP 18
--- NOTE | 2024-07-14 04:16 | EEG ---
ELECTROENCEPHALOGRAM REPORT CLINICAL HISTORY: This is a 58-year-old gentleman with history of seizure who has altered mental status. The video EEG is obtained to evaluate for seizure epileptiform activity. RELEVANT MEDICATION: Keppra, gabapentin, trazodone, Requip, and Cymbalta. EEG TYPE: This is a routine 21 channel EEG with video using the 10/20 electrode placement system. DESCRIPTION: Wakefulness and drowsiness are obtained. Mostly patient was in a drowsy state. During brief awake state, posterior-dominant rhythm consists of [id number] voltage of 11 hertz activity that is well modulated and well sustained. There is no physiological stage 2 sleep architecture. There is no focal slowing. Interictal and ictal is none. ACTIVATION PROCEDURE: Photic stimulation did not evoke a posterior driving response. There is no abnormality during the photic stimulation. Hyperventilation is not performed. CLINICAL INTERPRETATION: This is a normal routine EEG. There is no focal slowing, epileptiform discharge, or seizure on the EEG. A normal routine EEG does not rule out underlying epilepsy. Clinical correlation is recommended. MMASHELYL / IJN: [id number] /
[2024-07-14 06:20] LABS: Glucose,Whole Blood 168 mg/dL (70-110)
[2024-07-14 06:59] VITALS: TEMP 97.4
[2024-07-14 11:04] VITALS: BP 135/76; PULSE 89
[2024-07-14 11:28] LABS: Glucose,Whole Blood 133 mg/dL (70-110)
--- NOTE | 2024-07-14 12:45 | P.PN ---
Subjective Progress Note Date: 07/14/24 I am following-up with patient and per the nurse he is doing well. Per patient he feels is doing well and wants to go home. No further episodes of confusion. Objective - Vital Signs Vital signs: Vital Signs Temp 97.4 F L 07/14/24 11:01 Pulse 89 07/14/24 11:01 Resp 18 07/14/24 06:56 BP 135/76 07/14/24 11:01 Pulse Ox 95 07/14/24 11:01 FiO2 Intake & Output 07/13/24 07/14/24 07/14/24 18:59 06:59 18:59 Intake Total 956 260 180 Balance 956 260 180 Weight 132.4 kg Intake: IV 20 Invasive Line 1 20 Oral 956 240 180 Other: Voiding Method Toilet Toilet Toilet Urinal Urinal # Voids 2 1 # Bowel Movements 1 - Exam GENERAL: The patient is sitting on bed and is not in acute distress. Upon seeing him he had his left elbow on the recliner chair and he was reporting his head is seems that he has good strength. NEUROLOGICAL: Higher mental function: The patient is awake, alert, oriented to self, place and time. Patient is following commands. No aphasia and no neglect. Cranial nerves: The pupils are round, equal and reactive to light and accommodation. Visual hernandes are full to confrontation throughout. Extraocular movement is intact no nystagmus is noted. Facial sensation is normal to touch throughout. The facial strength is normal throughout. Hearing is normal bilaterally to hand rub. Tongue is midline and moved [id number] without any difficulty. Mild to moderate dysarthria is noted. Shoulder shrug is normal bilaterally. Motor: The strength is somewhat limited. As stated above upon seeing him initially he had his head supported by his left upper extremity with elbow bend on recliner chair and appears good support. Upon asking him to lift up his extremities he was having difficulty doing it. But I felt there is effort related on the left and upper extremity the strength in the left upper seems better than the left lower. Motivation there is some improvement. Strength on the right side is 5 out of 5. Normal tone and bulk. Cerebellum: Normal finger to nose bilaterally. Sensation: Sensation is normal to touch throughout. Reflexes (right/left): 2+ throughout. Plantars are mute bilaterally. Some of the workup during this hospital visit consisted of: Reviewed the labs. CT of the head is reported as age-related atrophy and chronic small vessel ischemic change without acute intracranial process seen at this time. CT angiography of the head and neck is reported as no significant diameter reduction to account for the patient's symptoms. No significant abnormality Repeat CT of the head later on 07/12/2024 at nighttime is reported as no acute intracranial process. I personally reviewed the CT and agree with report. Personally do not see any encephalomalacia that would explain the patient's left hemiparesis. Limited 2D echo was reported as technically difficult suboptimal study. Echo contrast was used. Left ventricular systolic function is normal. Doppler exam is difficult to interpret but I do not think there is any significant abnormality. No pericardial effusion. Carotid duplex: Measurements suggest a moderate (50-69%) proximal ICA stenosis. Routine EEG: Is normal. Reviewed prior images of MRI of the brain that the patient had an August 06, 2018 and it is reported as despite the patient left-sided weakness and slurring there is no area of restricted diffusion to indicate acute infarct. - Labs CBC & Chem 7: 07/11/24 08:43 07/11/24 08:43 Labs: Abnormal Lab Results - Last 24 Hours (Table) 07/13/24 07/14/24 07/14/24 Range/Units 20:15 06:18 11:27 POC Glucose (mg/dL) 184 H 168 H 133 H (70-110) mg/dL Assessment and Plan Assessment: This is a 58-year-old gentleman with a history of reported stroke with residual left-sided weakness had MRI of the brain in 2018 for continued left-sided weakness and dysarthria and is reported there is no evidence of any stroke. He also has a history of seizure and he stated his last seizure was in 2021, diabetes mellitus, chronic back pain with lumbar fusion and has a pain pump who presented emergency department because he stated that he was not feeling well and felt sweaty this past Wednesday. Yesterday at nighttime according to the nurse she was doing well but all of a sudden he was confused but no jerking of extremity no foaming around the mouth no fixed gaze deviation. Patient had 2 CT of the head in our facility which were unremarkable. Episode of transient encephalopathy and feeling sweating: Unknown Exact etiology. The differential is seizure and TIA cannot excluded. Another differential is functional specially upon examining him he had effort related on the left side. His routine EEG is normal. CT of the head is unremarkable. History of stroke with residual left hemiparesis and dysarthria. It seems in 2018 because of left persistent left sided weakness and dysarthria had MRI of the brain which was unremarkable for any stroke. He notified me that he is wheelchair-bound but per the nurse uses a walker. History of seizure and he stated the last seizure was in 2021 and he is on Keppra 1500 mg twice daily. Diabetes mellitus History of coronary artery status post History of squamous cell carcinoma of the lung status post right middle lobectomy Plan: Cannot obtain MRI of the brain as inpatient since patient has pain pump. Recommend MRI of the brain and cervical spine w/ and w/o as an outpatient by his outpatient neurologist (Dr. Parker) if possible. Had prior CT cervical spine in our facility and is reported as mild multilevel degenerative disc disease. Patient is resumed on his home medication Plavix 75 mg, Lipitor 80 mg nightly. He is on home medication of Keppra 1500 mg twice daily. I highly recommend a prolonged EEG as outpatient to rule out any discharges or seizure not detected on routine EEG and that can be coordinated by his neurologist and possible primary attending. Duplex is reported as moderate proximal right ICA stenosis. CT angiography's were unremarkable for any moderate to severe stenosis bilaterally. Vascular surgery is consulted and stated asymptomatic and followup as ouptatient as well they felt there is discordant finding between CTA and carotid duplex. Continue neurochecks Cardiac monitoring PT OT are consulted Will defer the rest of the medical management to primary and other specialist. On discharge recommend the patient to follow-up with his outpatient neurologist, Dr. Parekr within 2 weeks. The plan is discussed with patient and his nurse. There is no further neurological work-up. Will sign off. Please reconsult if needed. Time with Patient: Less than 30
[2024-07-15] MEDS ORDERED: PATIENT'S OWN (Tirzepatide [Mounjaro] 7.5 MG/0.5 ML Pen.Injctr) SQ SCH (09:00)
[2024-07-16] MEDS ORDERED: ERGOCALCIFEROL 1,250 MCG (50,000 IU) CAPSULE PO SCH (09:00)
== END 2024-07-14 13:19 | disposition home health service (06) ==
LOC: EC 08:31 → INTOOBSV 11:46 → 3SCARD 11:46 → UNDODISIN 07-14 13:19
PROVIDERS: ADMIT Internal Medicine Geriatric Medicine; ATTEND Internal Medicine Geriatric Medicine
PROC: 4A10X4Z Monitoring of Central Nervous Electrical Activity, External Approach (ICD-10-PCS; principal; 2024-07-12)
DX: R29.810 Facial weakness (principal); I69.322 Dysarthria following cerebral infarction; I69.354 Hemiplegia and hemiparesis following cerebral infarction affecting left non-dominant side; I65.21 Occlusion and stenosis of right carotid artery; G93.40 Encephalopathy, unspecified; I11.0 Hypertensive heart disease with heart failure; I50.9 Heart failure, unspecified; E11.43 Type 2 diabetes mellitus with diabetic autonomic (poly)neuropathy; G47.33 Obstructive sleep apnea (adult) (pediatric); E78.5 Hyperlipidemia, unspecified; I25.10 Atherosclerotic heart disease of native coronary artery without angina pectoris; G40.909 Epilepsy, unspecified, not intractable, without status epilepticus; E11.40 Type 2 diabetes mellitus with diabetic neuropathy, unspecified; K21.9 Gastro-esophageal reflux disease without esophagitis; G89.4 Chronic pain syndrome; M54.9 Dorsalgia, unspecified; G25.81 Restless legs syndrome; E66.01 Morbid (severe) obesity due to excess calories; Z68.39 Body mass index [BMI] 39.0-39.9, adult; Z79.02 Long term (current) use of antithrombotics/antiplatelets; Z79.1 Long term (current) use of non-steroidal anti-inflammatories (NSAID); Z79.4 Long term (current) use of insulin; Z79.85 Long-term (current) use of injectable non-insulin antidiabetic drugs; Z79.899 Other long term (current) drug therapy; Z79.84 Long term (current) use of oral hypoglycemic drugs; Z98.1 Arthrodesis status; Z99.3 Dependence on wheelchair; Z90.2 Acquired absence of lung [part of]; Z95.5 Presence of coronary angioplasty implant and graft; Z85.118 Personal history of other malignant neoplasm of bronchus and lung; Z87.891 Personal history of nicotine dependence; Z97.8 Presence of other specified devices; Z96.82 Presence of neurostimulator
CPT/HCPCS: 96376; 96375; 96361; 96374; 99291; 36415; 95819; 93005; 97162; 97166; 80053; 82550; 84484; 85025; 85610; 85730; 72100; 71046; 93880; 70496; 70450 ×2; 70498; G0378 ×4; C8929; J3360; J2405 ×2; Q9967; 93306

== ENCOUNTER 2024-12-06 12:28 | Observation (INO) | payer OTHER ==
--- NOTE | 2024-12-06 12:56 | ED ---
General Adult HPI - General Chief complaint: Weakness Stated complaint: weakness,fall Time Seen by Provider: 12/06/24 12:43 Source: patient, EMS, RN notes reviewed, old records reviewed Mode of arrival: EMS Limitations: physical limitation - History of Present Illness Initial comments: 59-year-old male presents with increased weakness, warmth and swelling to the left lower extremity. Patient denies fever. He is somewhat lethargic upon arrival but is able to answer questions when pushed. No fever. He reports chronic pain in the back and bilateral legs. He does report worsening pain in the left leg. No vomiting or diarrhea. Patient was sent from the [facility] for evaluation. - Related Data Home Medications Medication Instructions Recorded Confirmed rOPINIRole HCL [Requip] 3 mg PO Q8H 05/30/19 07/11/24 Montelukast [Singulair] 10 mg PO HS 07/21/19 07/11/24 levETIRAcetam [Keppra] 1,500 mg PO BID 05/03/20 07/11/24 Furosemide [Lasix] 60 mg PO BID@0900,1500 09/06/20 07/11/24 Atorvastatin [Lipitor] 80 mg PO HS 10/23/20 07/11/24 Clopidogrel [Plavix] 75 mg PO DAILY 12/06/22 07/11/24 DULoxetine HCL [Cymbalta] 30 mg PO HS 06/15/23 07/11/24 Ergocalciferol (Vitamin D2) 1,250 mcg PO ANDERSON 06/15/23 07/11/24 [Drisdol (50,000 Iu)] Insulin Aspart [NovoLOG Flexpen] 25 units SQ TID-W/MEALS 06/15/23 07/11/24 Insulin Glargine,Hum.rec.anlog 45 unit SQ BID 06/15/23 07/11/24 [Basaglar Kwikpen U-100] Midodrine HCl [ProAmatine] 10 mg PO TID 06/15/23 07/11/24 Empagliflozin [Jardiance] 10 mg PO DAILY 09/15/23 07/11/24 Gabapentin [Neurontin] 400 mg PO QID 07/11/24 07/11/24 Meloxicam [Mobic] 15 mg PO DAILY 07/11/24 07/11/24 Mupirocin 2% Oint [Bactroban 2% 1 applic TOPICAL BID 07/11/24 07/11/24 Oint] Potassium Chloride [Klor-Con M20] 20 meq PO BID 07/11/24 07/11/24 Spironolactone [Aldactone] 50 mg PO DAILY 07/11/24 07/11/24 Tirzepatide [Mounjaro] 7.5 mg SQ SA 07/11/24 07/11/24 traZODone HCL 150 mg PO DAILY 07/11/24 07/11/24 Previous Rx's Medication Instructions Recorded Acetaminophen-Codeine 300-30mg 1 each PO Q6HR PRN #12 tab 07/13/24 [Tylenol w/codeine #3] Famotidine [Pepcid] 20 mg PO DAILY #30 tab 07/13/24 Sennosides-Docusate Sodium 1 each PO BID tab 07/13/24 [Senokot-S] Allergies Allergy/AdvReac Type Severity Reaction Status Date / Time No Known Allergies Allergy Verified 07/11/24 09:38 Review of Systems ROS Statement: Those systems with pertinent positive or pertinent negative responses have been documented in the HPI. ROS Other: All systems not noted in ROS Statement are negative. Past Medical History Past Medical History: Coronary Artery Disease (CAD), Cancer, COPD, CVA/TIA, Diabetes Mellitus, GERD/Reflux, Hyperlipidemia, Hypertension, Myocardial Inf arction (HI), Osteoarthritis (OA), Pneumonia, Seizure Disorder, Sleep Apnea/CPAP/BIPAP Additional Past Medical History / Comment(s): LAST SEIZURE 2018; lumbar radiculopathy; neuropathy; no CPAP needed per recent sleep study, hx. lung cancer, cellulitis of both lower legs 2020 Last Myocardial Infarction Date:: 10/22/10 History of Any Multi-Drug Resistant Organisms: None Reported Past Surgical History: Back Surgery, Cholecystectomy, Heart Catheterization With Stent Additional Past Surgical History / Comment(s): LAMINECTOMY ,fusion,spinal stimulator LEFT SHOULDER sx, 07-31-15 revison thoracic laminectomy t10- t11/removal of neuro stimulator and wires removed, fused L1&2 to a cage fusion that was previously put in to L3,4,5. May 27/2018. lobectomy of right middle lung Past Anesthesia/Blood Transfusion Reactions: No Reported Reaction Date of Last Stent Placement:: 10/22/10 Past Psychological History: Depression Smoking Status: Former smoker Past Alcohol Use History: None Reported Past Drug Use History: None Reported - Past Family History Brother(s) Family Medical History: Deep Vein Thrombosis (DVT) Mother Family Medical History: Osteoarthritis (OA) Additional Family Medical History / Comment(s): psoriases, Parkinsons Father Family Medical History: Coronary Artery Disease (CAD) Additional Family Medical History / Comment(s): heart problems- quad bypass, General Exam Limitations: physical limitation General appearance: in no apparent distress, lethargic Head exam: Present: atraumatic Eye exam: Present: normal appearance, PERRL Neck exam: Present: normal inspection. Absent: tenderness Respiratory exam: Present: decreased breath sounds. Absent: respiratory distress, wheezes Cardiovascular Exam: Present: regular rate, normal rhythm GI/Abdominal exam: Present: soft. Absent: distended Extremities exam: Present: pedal edema, other (Circumferential erythema left lower extremity, edema, Doppler signal present.) Neurological exam: Present: alert, oriented X3, CN II-XII intact. Absent: motor sensory deficit Psychiatric exam: Present: normal affect, normal mood Skin exam: Present: warm, dry, intact Course Vital Signs 12/06/24 12:32 Temperature 97.9 F Pulse Rate 87 Respiratory 18 Rate Blood Pressure 119/80 Medical Decision Making - Medical Decision Making Was pt. sent in by a medical professional or institution ([facility] Miller, RECRUITING ADMINISTRATOR, urgent care, hospital, or [facility]...) When possible be specific @Sent in from the [facility] Did you speak to anyone other than the patient for history (EMS, parent, family, police, friend...)? What history was obtained from this source @ -No Did you review nursing and triage notes (agree or disagree)? Why? @ -I reviewed and agree with nursing and triage notes Were old charts reviewed (outside hosp., previous admission, EMS record, old EKG, old radiological studies, urgent care reports/EKG's, [facility] records)? Report findings @ -No old charts were reviewed Differential Weakness: Hypoglycemia, shock, sepsis, hyponatremia, anemia, infection, HI, ETOH, adverse medicine reaction, overdose, stroke, this is not meant to be an all-inclusive list. EKG interpreted by me (3pts min.). @Sinus rhythm rate of 79, MN interval 166, QRS duration 108, QTc [address] segment elevation. X-rays interpreted by me (1pt min.). @Chest x-ray, low lung volumes, no consolidated pneumonia CT interpreted by me (1pt min.). @ -None done U/S interpreted by me (1pt. min.). @ -None done What testing was considered but not performed or refused? (CT, X-rays, U/S, labs)? Why? @ -None What meds were considered but not given or refused? Why? @ -None Did you discuss the management of the patient with other professionals (professionals i.e. , PA, RECRUITING ADMINISTRATOR, lab, RT, psych nurse, social media marketing specialist, family program specialist, teacher, fire officer, rn case mgr)? Give summary @ -[facility] Was smoking cessation discussed for >3mins.? @ -No Was critical care preformed (if so, how long)? @ -No Were there social determinants of health that impacted care today? How? (Homelessness, low income, unemployed, alcoholism, drug addiction, transportation, low edu. Level, literacy, decrease access to med. care, usp, rehab)? @ -No Was there de-escalation of care discussed even if they declined (Discuss DNR or withdrawal of care, Hospice)? DNR status @ -No What co-morbidities impacted this encounter? (DM, HTN, Smoking, COPD, CAD, Cancer, CVA, ARF, Chemo, Hep., AIDS, mental health diagnosis, sleep apnea, morbid obesity)? @ -Hypertension, diabetes, obesity associated hypoventilation Was patient admitted / discharged? Hospital course, mention meds given and route, prescriptions, significant lab abnormalities, going to OR and other pertinent info. @ -[59-year-old male sent in from the [facility] with increased weakness and lethargy. Patient afebrile. He is somewhat lethargic but will answer questions. He likely has chronic CO2 elevation, venous gas shows a CO2 of 61 he will be placed on BiPAP to see if this improves his mental status. He started on antibiotics for left leg cellulitis which is circumferential, warm to the touch. Normal white blood cell count, negative lactic acid. Undiagnosed new problem with uncertain prognosis? @ -No Drug Therapy requiring intensive monitoring for toxicity (Heparin, Nitro, Insulin, Cardizem)? @ -No Were any procedures done? @ -No Diagnosis/symptom? @ -[Weakness, hypercapnia, cellulitis Acute, or Chronic, or Acute on Chronic? @Acute Uncomplicated (without systemic symptoms) or Complicated (systemic symptoms)? @ -Default Side effects of treatment? @ -No Exacerbation, Progression, or Severe Exacerbation? @ -No Poses a threat to life or bodily function? How? (Chest pain, USA, HI, pneumonia, PE, COPD, DKA, ARF, appy, cholecystitis, CVA, Diverticulitis, Homicidal, Suicidal, threat to staff... and all critical care pts) @Yes, sepsis, respiratory failure - Lab Data Result diagrams: 12/06/24 13:28 12/06/24 13:28 Lab Results 12/06/24 12/06/24 12/06/24 Range/Units 13:28 13:28 13:28 WBC 8.0 (3.8-10.6) k/uL RBC 4.20 L (4.30-5.90) m/uL Hgb 11.9 L (13.0-17.5) gm/dL Hct 36.5 L (39.0-53.0) % MCV 86.8 (80.0-100.0) fL MCH 28.2 (25.0-35.0) pg MCHC 32.5 (31.0-37.0) g/dL RDW 14.8 (11.5-15.5) % Plt Count 199 (150-450) k/uL MPV 7.8 Neutrophils % 68 % Lymphocytes % 22 % Monocytes % 5 % Eosinophils % 3 % Basophils % 1 % Neutrophils # 5.4 (1.3-7.7) k/uL Lymphocytes # 1.7 (1.0-4.8) k/uL Monocytes # 0.4 (0-1.0) k/uL Eosinophils # 0.3 (0-0.7) k/uL Basophils # 0.1 (0-0.2) k/uL PT 9.8 L (10.0-12.5) sec INR 0.9 (<1.2) APTT 23.2 (22.0-30.0) sec VBG pH 7.36 (7.31-7.41) VBG pCO2 61 H (37-51) mmHg VBG HCO3 35 H (24-28) mmol/L Sodium (137-145) mmol/L Potassium (3.5-5.1) mmol/L Chloride (98-107) mmol/L Carbon Dioxide (22-30) mmol/L Anion Gap mmol/L BUN (9-20) mg/dL Creatinine (0.66-1.25) mg/dL Est GFR (CKD-EPI)AfAm (>60 ml/min/1.73 sqM) Est GFR (CKD-EPI)NonAf (>60 ml/min/1.73 sqM) Glucose (74-99) mg/dL Plasma Lactic Acid Francois (0.7-2.0) mmol/L Calcium (8.4-10.2) mg/dL Total Bilirubin (0.2-1.3) mg/dL AST (17-59) U/L ALT (4-49) U/L Alkaline Phosphatase (38-126) U/L NT-Pro-B Natriuret Pep pg/mL Total Protein (6.3-8.2) g/dL Albumin (3.5-5.0) g/dL 12/06/24 12/06/24 Range/Units 13:28 13:28 WBC (3.8-10.6) k/uL RBC (4.30-5.90) m/uL Hgb (13.0-17.5) gm/dL Hct (39.0-53.0) % MCV (80.0-100.0) fL MCH (25.0-35.0) pg MCHC (31.0-37.0) g/dL RDW (11.5-15.5) % Plt Count (150-450) k/uL MPV Neutrophils % % Lymphocytes % % Monocytes % % Eosinophils % % Basophils % % Neutrophils # (1.3-7.7) k/uL Lymphocytes # (1.0-4.8) k/uL Monocytes # (0-1.0) k/uL Eosinophils # (0-0.7) k/uL Basophils # (0-0.2) k/uL PT (10.0-12.5) sec INR (<1.2) APTT (22.0-30.0) sec VBG pH (7.31-7.41) VBG pCO2 (37-51) mmHg VBG HCO3 (24-28) mmol/L Sodium 137 (137-145) mmol/L Potassium 4.1 (3.5-5.1) mmol/L Chloride 96 L (98-107) mmol/L Carbon Dioxide 36 H (22-30) mmol/L Anion Gap 5 mmol/L BUN 9 (9-20) mg/dL Creatinine 0.82 (0.66-1.25) mg/dL Est GFR (CKD-EPI)AfAm >90 (>60 ml/min/1.73 sqM) Est GFR (CKD-EPI)NonAf >90 (>60 ml/min/1.73 sqM) Glucose 122 H (74-99) mg/dL Plasma Lactic Acid Francois 1.4 (0.7-2.0) mmol/L Calcium 8.9 (8.4-10.2) mg/dL Total Bilirubin 0.6 (0.2-1.3) mg/dL AST 27 (17-59) U/L ALT 26 (4-49) U/L Alkaline Phosphatase 95 (38-126) U/L NT-Pro-B Natriuret Pep <20 pg/mL Total Protein 6.5 (6.3-8.2) g/dL Albumin 4.1 (3.5-5.0) g/dL Disposition Clinical Impression: Hypercapnia, Cellulitis Disposition: ADMITTED IP TO THIS HOSP Condition: Stable Is patient prescribed a controlled substance at d/c from ED?: No Referrals: Charles Thompson MD [Primary Care Provider] - 1-2 days Time of Disposition: 14:18
[2024-12-06 13:32] LABS: Basophils # (A) 0.1 k/uL (0-0.2); Basophils % (A) 1 %; Eosinophils # (A) 0.3 k/uL (0-0.7); Eosinophils % (A) 3 %; HCT 36.5 % (39.0-53.0); HGB 11.9 gm/dL (13.0-17.5); Lymphocytes # (A) 1.7 k/uL (1.0-4.8); Lymphocytes % (A) 22 %; MCH 28.2 pg (25.0-35.0); MCHC 32.5 g/dL (31.0-37.0); MCV 86.8 fL (80.0-100.0); Mean Platelet Volume 7.8; Monocytes # (A) 0.4 k/uL (0-1.0); Monocytes % (A) 5 %; Neutrophils # (A) 5.4 k/uL (1.3-7.7); Neutrophils % (A) 68 %; Platelet Count 199 k/uL (150-450); RDW 14.8 % (11.5-15.5); VBG PH 7.36 (7.31-7.41)
[2024-12-06 13:40] LABS: INR 0.9 (<1.2); Partial Thromboplastin Time 23.2 sec (22.0-30.0); Prothrombin Time 9.8 sec (10.0-12.5)
[2024-12-06 13:46] LABS: ALT 26 U/L (4-49); AST 27 U/L (17-59); African American GFR (CKD) >90 (>60 ml/min/1.73 sqM); Albumin 4.1 g/dL (3.5-5.0); Alkaline Phosphatase 95 U/L (38-126); Anion Gap 5 mmol/L; Blood Urea Nitrogen 9 mg/dL (9-20); Calcium 8.9 mg/dL (8.4-10.2); Carbon Dioxide 36 mmol/L (22-30); Chloride 96 mmol/L (98-107); Glucose 122 mg/dL (74-99); Non-African American GFR(CKD) >90 (>60 ml/min/1.73 sqM); Potassium 4.1 mmol/L (3.5-5.1); Sodium 137 mmol/L (137-145); Total Bilirubin 0.6 mg/dL (0.2-1.3); Total Protein 6.5 g/dL (6.3-8.2)
[2024-12-06 13:54] LABS: NT-Pro-B-Type Natriuretic Pept <20 pg/mL
--- NOTE | 2024-12-06 13:57 | XR ---
EXAMINATION TYPE: XR chest 1V portable DATE OF EXAM: 12/06/2024 1:18 PM COMPARISON: Chest radiographs from 07/11/2024 CLINICAL INDICATION: Male, 59 years old with history of weakness; TECHNIQUE: XR chest 1V portable Frontal view of the chest. FINDINGS: Lungs/Pleura: There is no evidence of pleural effusion, focal consolidation, or pneumothorax. Pulmonary vascularity: Unremarkable. Heart/mediastinum: Cardiomediastinal silhouette is unremarkable. Musculoskeletal: No acute osseous pathology. IMPRESSION: Low lung volumes with a generalized hazy appearance which could represent atelectasis versus pulmonar y edema correlate with serum BNP. [facility], , 12/06/2024 1:55 PM
[2024-12-06] MEDS ORDERED: VANCOMYCIN IV PER PHARMACY 1 EACH MISC MISCELLANE PRN (14:06)
[2024-12-06] MEDS ORDERED: NALOXONE 0.4 MG/ML 1 ML VIAL IV PRN (14:14)
[2024-12-06] MEDS ORDERED: ACETAMINOPHEN TAB 325 MG TAB PO PRN (14:14)
[2024-12-06] MEDS: VANCOMYCIN 2,000 MG in SODIUM CHLORIDE 0.9% 500 ML 500 ML IVPB ONE (15:32)
[2024-12-06 16:36] LABS: Influenza A Not Detected (Not Detectd); Influenza B Not Detected (Not Detectd); RSV Not Detected (Not Detectd)
[2024-12-06] MEDS ORDERED: MIDODRINE 5 MG TAB PO PRN (16:39)
--- NOTE | 2024-12-06 16:47 | P.HPIM ---
History of Present Illness H&P Date: 12/06/24 History of Presenting Illness: Patient is a pleasant 59-year-old male who is baseline wheelchair-bound with a past medical history of COPD, lung cancer status post right lobectomy, obstructive sleep apnea previously dependent on CPAP, CAD with previous [place] s tatus post stenting, chronic diastolic heart failure, peripheral vascular disease with bilateral lower extremity neuropathy, hypertension, hyperlipidemia, insulin-dependent diabetes mellitus, chronic back pain with previous thoracic fusions and cage placement with morphine pain pump implantation, CVA with left- sided residual deficits, and seizure disorder. Patient presented to the emergency department today with multiple complaints. He was sent by his PCP, Dr. Thompson. On discussion with patient's PCP via telephone, he reports that patient has had increased weakness and multiple falls over the last 3 days, complaining of bilateral lower extremity swelling, increasing shortness of breath and concerns that patient was slow to respond and appeared weakner. Patient had recent hospitalization at [facility] on 11/14/2024 for CHF exacerbation. Patient's PCP reports that patient's relocation specialist decreased patient's Bumex from 3 mg daily down to 1 mg daily and patient was also recently started on [place] in addition to his pain pump. Patient currently reports increasing bilateral lower extremity swelling and pain along with shortness of breath and a cough with wolf sputum production. Patient denies any recent fevers, chills, diaphoresis, chest pain, palpitations, nausea, vomiting, or experiencing any increased or changes in his left upper or lower extremity weakness from previous CVA. Patient reports he is wheelchair bound at baseline, but does admit to falls recently from transfers. He denies any increase in his chronic back pain or any other complaints at this time. Upon arrival to our facility, patient underwent evaluation in the emergency department. Vital signs upon arrival show blood pressure 119/80, heart rate 87, respiratory rate 18, temp 97.9 F, and SpO2 of 98% on room air. EKG was completed showing normal sinus rhythm at 79 bpm with no noted T wave or ST abnormality showing no signs of acute ischemia upon personal review and interpretation. Chest x-ray completed showing low lung volumes with generalized haziness likely secondary to atelectasis versus mild pulmonary edema. Completed and reviewed. CBC showing normocytic anemia with hemoglobin of 11.9. Coagulation profile showing a low PTT of 9.8 otherwise normal findings. VBG showing compensated respiratory acidosis with pH of 7.36, pCO2 of 61, bicarb of 35. BMP showing chloride of 96, bicarb of 36, and anion gap of 5. Blood glucose 122. Lactic acid 1.4. Liver profile unremarkable. proBNP less than 20. Influenza A, influenza B, RSV, and COVID PCR negative. ED physician or dered for patient to be placed on BiPAP. Patient admitted under our services with consultation to pulmonology. Review of systems: Pertinent positives and negatives as discussed in HPI, a complete review of systems was performed and all other systems are negative. Physical exam: Vital signs reviewed and stable. General: Nontoxic, no distress and appears stated age. Patient with significant kyphosis. Derm: Skin warm and dry, normal coloration for ethnicity. Head: Atraumatic, normocephalic and symmetric. Eyes: EOM's intact, no lid lag, and anicteric sclera Mouth: no lip lesions, mucus membranes moist Cardiovascular: regular rate and rhythm with normal S1S2, no murmur, positive posterior tibial pulses bilaterally, and cap refill < 2 seconds. Lungs: Respirations even, regular, and unlabored on room air. Lungs diminished. No rhonchi, no rales, no wheezing, and no accessory muscle usage. Abdominal: Obese abdomen, soft, nontender to palpation, no guarding, no appreciable organomegaly Ext:. No gross muscle atrophy, no edema, no contractures. Patient with weakness in left upper and left lower extremity secondary to previous CVA, reports his baseline. 2+ pitting bilateral lower extremity edema with venous stasis dermatitis. Neuro: Speech slightly slow to respond, unclear if baseline but patient reports is normal face symmetrical. GCS 15. Psych: Alert and oriented to person, place, time, and situation. Appropriate and pleasant affect. Assessment and Plan of Care: Acute hypercapnic respiratory failure likely multifactorial secondary to Obesity hypoventilation syndrome vs recent decrease of Bumex from 3 mg daily down to 1 mg daily, vs opioid induced as patient has morphine pain pump and was recently started on [place] COPD History of lung cancer status post right lobectomy Obstructive sleep apnea -Wean from BiPAP as patient tolerates. -Consult to Pulmonology -Oxygenation to be administered and titrated as needed to maintain SPO2 equal to or greater than 92% -Telemetry monitoring. -Monitor pulse-oximetry -Duonebs as needed for SOB and/or wheezing -Incentive Spirometry -Procalcitonin and Sputum culture to be obtained. -Emperic Antibiotics: Rocephin 2 g daily and a Zithromax 500 mg daily pending procalcitonin and sputum culture results. Patient reports recent increase in shortness of breath with wolf colored phlegm production CAD with previous [place] Chronic diastolic heart failure History of CVA with left-sided residual deficits Hypertension Hyperlipidemia -Continue daily medication regimen with atorvastatin 80 mg nightly, Bumex 1 mg daily, Plavix 75 mg daily, Farxiga 5 mg daily, metoprolol 12.5 mg daily, Aldactone 25 mg daily, and midodrine 2.5 mg 3 times daily as needed for hyp otension with systolic blood pressure less than 90. -Telemetry monitoring. Bilateral lower extremity edema, venous stasis dermatitis PVD with Bilateral lower extremity neuropathy -Vancomycin started in ED discontinued as bilateral lower extremity edema and R udy discoloration believed to be secondary to venous stasis dermatitis and not likely to be bilateral lower extremity cellulitis. -Order placed for FAYE hose and elevation of lower extremities -Continue Requip 3 mg 3 times daily and will reduce dose of Neurontin to 300 mg 4 times daily. Generalized weakness with recurrent falls at home -Patient is wheelchair-bound at baseline secondary to left-sided residual deficits from previous CVA and chronic back pain with significant kyphosis. Increased weakness and reported falls while transferring self likely m ultifactorial possibly secondary to polypharmacy use resulting in increased drowsiness/sedation. Discontinue [place] as patient has morphine implanted pump managed outpatient by Dr. Srinivasan. Reduce Neurontin to 300 mg 4 times daily. -Fall precautions in place. -Consult placed to physical and Occupational Therapy. History of seizure disorder -Continue Keppra 1500 mg twice daily -Seizure precautions Insulin-dependent diabetes mellitus -Patient placed on glycemic protocol with NovoLog sliding scale. Data and imaging reviewed: -As stated above in HPI. The patient is admitted with an anticipated greater than 2 midnight stay for evaluation of acute hypercapnic respiratory failure. CODE STATUS: Full code DVT prophylaxis: Lovenox Discussed with: Patient, ED physician, patient's PCP, and RN Anticipated discharge date: Pending clinical course Anticipated discharge place: Pending clinical course Patient was seen independently by Nurse Practitioner. This document was prepared using [employer] dictation software. Please allow for errors in embedded software developer while rare they do occur. Jung Townsend NP rendered care for this patient independently, reviewed the findings and plan as documented in the note above and agree with plan. I did not physically speak with or examine the patient on this date. Past Medical History Past Medical History: Coronary Artery Disease (CAD), Cancer, COPD, CVA/TIA, Diabetes Mellitus, GERD/Reflux, Hyperlipidemia, Hypertension, Myocardial Infarct ion ([place]), Osteoarthritis (OA), Pneumonia, Seizure Disorder, Sleep Apnea/CPAP/BIPAP Additional Past Medical History / Comment(s): LAST SEIZURE 2018; lumbar radiculopathy; neuropathy; no CPAP needed per recent sleep study, hx. lung cancer, cellulitis of both lower legs 2020 Last Myocardial Infarction Date:: 10/22/10 History of Any Multi-Drug Resistant Organisms: None Reported Past Surgical History: Back Surgery, Cholecystectomy, Heart Catheterization With Stent Additional Past Surgical History / Comment(s): LAMINECTOMY ,fusion,spinal stimulator LEFT SHOULDER sx, 07-31-15 revison thoracic laminectomy t10- t11/removal of neuro stimulator and wires removed, fused L1&2 to a cage fusion that was previously put in to L3,4,5. May 27/2018. lobectomy of right middle lung Past Anesthesia/Blood Transfusion Reactions: No Reported Reaction Date of Last Stent Placement:: 10/22/10 Past Psychological History: Depression Smoking Status: Former smoker Past Alcohol Use History: None Reported Past Drug Use History: None Reported - Past Family History Brother(s) Family Medical History: Deep Vein Thrombosis (DVT) Mother Family Medical History: Osteoarthritis (OA) Additional Family Medical History / Comment(s): psoriases, Parkinsons Father Family Medical History: Coronary Artery Disease (CAD) Additional Family Medical History / Comment(s): heart problems- quad bypass, Medications and Allergies Home Medications Medication Instructions Recorded Confirmed Type rOPINIRole HCL [Requip] 3 mg PO TID 05/30/19 12/06/24 History Montelukast [Singulair] 10 mg PO HS 07/21/19 12/06/24 History levETIRAcetam [Keppra] 1,500 mg PO BID 05/03/20 12/06/24 History Atorvastatin [Lipitor] 80 mg PO HS 10/23/20 12/06/24 History Clopidogrel [Plavix] 75 mg PO DAILY 12/06/22 12/06/24 History DULoxetine HCL [Cymbalta] 30 mg PO HS 06/15/23 12/06/24 History Ergocalciferol (Vitamin D2) 1,250 mcg PO ANDERSON 06/15/23 12/06/24 History [Drisdol (50,000 Iu)] Insulin Aspart [NovoLOG Flexpen] 4 - 6 units SQ TID PRN 06/15/23 12/06/24 History Insulin Glargine,Hum.rec.anlog 45 unit SQ BID 06/15/23 12/06/24 History [Basaglar Kwikpen U-100] Empagliflozin [Jardiance] 10 mg PO DAILY 09/15/23 12/06/24 History Meloxicam [Mobic] 15 mg PO DAILY 07/11/24 12/06/24 History traZODone HCL 150 mg PO HS 07/11/24 12/06/24 History Famotidine [Pepcid] 20 mg PO DAILY #30 tab 07/13/24 12/06/24 Rx Albuterol Inhaler [Ventolin Hfa 2 puff INHALATION RT-Q4H PRN 12/06/24 12/06/24 History Inhaler] Amitriptyline HCl [Elavil] 50 mg PO HS 12/06/24 12/06/24 History Bumetanide [Bumex] 1 mg PO DAILY 12/06/24 12/06/24 History Gabapentin 600 mg PO QID 12/06/24 12/06/24 History HYDROcodone/APAP 7.5-325MG [[place] 1 tab PO DAILY PRN 12/06/24 12/06/24 History 7.5-325] Linagliptin [Tradjenta] 5 mg PO DAILY 12/06/24 12/06/24 History Metoprolol Succinate [Metoprolol 12.5 mg PO DAILY 12/06/24 12/06/24 History Succinate ER] Midodrine HCl [ProAmantine] 2.5 mg PO TID PRN 12/06/24 12/06/24 History Ondansetron [Ondansetron ODT] 4 mg SL Q6H PRN 12/06/24 12/06/24 History Spironolactone [Aldactone] 25 mg PO DAILY 12/06/24 12/06/24 History Tirzepatide [Mounjaro] 5 mg SQ Q7D 12/06/24 12/06/24 History Allergies Allergy/AdvReac Type Severity Reaction Status Date / Time No Known Allergies Allergy Verified 12/06/24 14:56 Physical Exam Vitals: Vital Signs Temp Pulse Resp BP 12/06/24 12:32 97.9 F 87 18 119/80 Intake and Output 12/05/24 12/06/24 12/06/24 22:59 06:59 14:59 Other: Weight 132.449 kg Results CBC & Chem 7: 12/06/24 13:28 12/06/24 13:28 Labs: Abnormal Lab Results - Last 24 Hours (Table) 12/06/24 12/06/24 12/06/24 Range/Units 13:28 13:28 13:28 RBC 4.20 L (4.30-5.90) m/uL Hgb 11.9 L (13.0-17.5) gm/dL Hct 36.5 L (39.0-53.0) % PT 9.8 L (10.0-12.5) sec VBG pCO2 61 H (37-51) mmHg VBG HCO3 35 H (24-28) mmol/L Chloride (98-107) mmol/L Carbon Dioxide (22-30) mmol/L Glucose (74-99) mg/dL 12/06/24 Range/Units 13:28 RBC (4.30-5.90) m/uL Hgb (13.0-17.5) gm/dL Hct (39.0-53.0) % PT (10.0-12.5) sec VBG pCO2 (37-51) mmHg VBG HCO3 (24-28) mmol/L Chloride 96 L (98-107) mmol/L Carbon Dioxide 36 H (22-30) mmol/L Glucose 122 H (74-99) mg/dL
[2024-12-06] MEDS ORDERED: DEXTROSE 50% SYRINGE 50 ML IVP PRN ×2 (16:50)
[2024-12-06 17:11] LABS: Glucose,Whole Blood 110 mg/dL (70-110)
[2024-12-06] MEDS ORDERED: MIDODRINE 5 MG TAB PO SCH (17:30)
[2024-12-06] MEDS: INSULIN LISPRO (HumaLOG) 100 UNIT/ML 10 mL VL SQ SCH (17:35)
[2024-12-06] MEDS: GABAPENTIN 300 MG CAP PO SCH ×2 (17:44→19:56)
[2024-12-06] MEDS: AZITHROMYCIN 500 MG TAB PO SCH (17:45)
[2024-12-06] MEDS ORDERED: IPRATROPIUM-ALBUTEROL 3 ML NEB INHALATION PRN (18:37)
[2024-12-06] MEDS: AMITRIPTYLINE HCL 50 MG TAB PO SCH (19:55)
[2024-12-06] MEDS: ATORVASTATIN 80 MG TAB PO SCH (19:55)
[2024-12-06] MEDS: MONTELUKAST 10 MG TAB PO SCH (19:56)
[2024-12-06] MEDS: DULoxetine HCL 30 MG CAPSULE.DR PO SCH (19:56)
[2024-12-06 20:03] LABS: Glucose,Whole Blood 125 mg/dL (70-110)
[2024-12-07] MEDS ORDERED: VANCOMYCIN 2,000 MG in SODIUM CHLORIDE 0.9% 500 ML 500 ML IVPB SCH (03:00)
[2024-12-07 05:39] LABS: Glucose,Whole Blood 141 mg/dL (70-110)
[2024-12-07 07:22] VITALS: BP 95/58; PULSE 76; RESP 18; TEMP 97.5
[2024-12-07 08:30] LABS: HCT 36.7 % (39.6-50.0); HGB 11.5 g/dL (13.0-17.0); MCH 28.3 pg (27.0-32.0); MCHC 31.3 g/dL (32.0-37.0); MCV 90.4 FL (80.0-97.0); Mean Platelet Volume 10.8 FL (9.5-12.2); NRBC Per 100 WBC 0 X 10*3/uL (0.00-0.01); Platelet Count 177 X 10*3/uL (140-440); RBC 4.06 X 10*6/uL (4.40-5.60); RDW 14.5 % (11.5-14.5); WBC 7.64 X 10*3/uL (4.50-10.00)
[2024-12-07 08:52] LABS: ALT 26 U/L (10-49); AST 25 U/L (14-35); Albumin 4.1 g/dL (3.8-4.9); Albumin/Globulin Ratio 1.86 Ratio (1.60-3.17); Alkaline Phosphatase 94 U/L (41-126); Blood Urea Nitrogen 10.5 mg/dL (9.0-27.0); Carbon Dioxide 32.8 mmol/L (21.6-31.8); Chloride 99 mmol/L (96-109); Globulin 2.2 g/dL (1.6-3.3); Glucose 128 mg/dL (70-110); Potassium 4.7 mmol/L (3.5-5.5); Sodium 142 mmol/L (135-145); Total Bilirubin 0.5 mg/dL (0.3-1.2); Total Protein 6.3 g/dL (6.2-8.2)
[2024-12-07] MEDS: BUMETANIDE 1 MG TAB PO SCH (09:07)
[2024-12-07] MEDS: CLOPIDOGREL 75 MG TAB PO SCH (09:08)
[2024-12-07] MEDS: DAPAGLIFLOZIN PROPANEDIOL 5 MG TABLET PO SCH (09:08)
[2024-12-07] MEDS: FAMOTIDINE 20 MG TAB PO SCH (09:08)
[2024-12-07] MEDS: ENOXAPARIN 40 MG/0.4 ML SYRINGE SQ SCH (09:08)
[2024-12-07] MEDS: MELOXICAM 7.5 MG TAB PO SCH (09:09)
[2024-12-07] MEDS: METOPROLOL SUCCINATE (ER) 25 MG TAB.ER.24H PO SCH (09:09)
[2024-12-07] MEDS: SPIRONOLACTONE 25 MG TAB PO SCH (09:10)
--- NOTE | 2024-12-07 11:06 | US ---
EXAMINATION TYPE: US venous doppler duplex LE BI DATE OF EXAM: 12/07/2024 10:30 AM COMPARISON: NONE CLINICAL INDICATION: Male, 59 years old with history of BLE edema and pain; Left lower leg redness, P ain TECHNIQUE: The lower extremity deep venous system is examined utilizing real time linear array sonog justine with graded compression, color doppler sonography, and spectral doppler. SIDE PERFORMED: Right FINDINGS: VESSELS IMAGED: Common Femoral Vein Deep Femoral Vein Greater Saphenous Vein *- Left not seen Femoral Vein Popliteal Vein Small Saphenous Vein * Proximal Calf Veins (* superficial vessels) Limited compression due to patient pain tolerance Right Leg: Negative for DVT, Color Doppler imaging shows patency of the vessels. Spectral waveforms are within normal limits. Left Leg: Negative for DVT, Color Doppler imaging shows patency of the vessels. Spectral waveforms a re within normal limits. IMPRESSION: No ultrasound evidence for deep venous thrombosis. [facility], , 12/07/2024 11:03 AM
[2024-12-07 12:20] LABS: Glucose,Whole Blood 111 mg/dL (70-110)
--- NOTE | 2024-12-07 12:30 | P.CNPUL ---
History of Present Illness Consult date: 12/07/24 Requesting physician: Jung Townsend Reason for consult: obstructive sleep apnea Chief complaint: Lower extremity edema History of present illness: This is a 59-year-old male patient with a known history of coronary artery disease with previous stent placement, lung cancer diagnosed back in 2019 status post right middle lobectomy, former smoker, chronic obstructive pulmonary disease, diabetes mellitus, hypertension, hyperlipidemia, seizure disorder, morbid obesity, obstructive sleep apnea intolerant to CPAP. He presented here to the emergency room yesterday with complaints of increasing lower extremity edema redness and warmth. Chest x-ray shows low lung volumes with atelectatic changes in the lung bases. White count 7.6. Hemoglobin 11.5. Platelets 177. Sodium 142. Potassium 4.7. Bicarb 33. BUN 11. Creatinine 1.0. Glucose 128. Viral screen was negative. Consulted regarding hypercapnia. He is seen today in consultation on the regular medical floor. He is currently sitting up in bed. Awake and alert in no acute distress. Maintaining O2 saturations in the 90s on room air. He is afebrile. Hemodynamically stable. He denies any shortness of breath, cough or congestion. No fever or chills. Recurrent lower extremity edema. Venous Doppler was negative for DVT bilaterally. Review of Systems REVIEW OF SYSTEMS: CONSTITUTIONAL: Denies any recent significant weight loss or weight gain. EYES: Denies change in vision. EARS, NOSE, MOUTH, THROAT: Denies headaches, denies sore throat. CARDIOVASCULAR: Denies chest pain, palpitations or syncopal episodes. RESPIRATORY: Denies shortness of breath, cough, congestion or hemoptysis. GASTROINTESTINAL: Denies change in appetite, denies abdominal pain GENITOURINARY: Denies hematuria, denies infections. MUSKULOSKELETAL: Positive for lower extremity pain and swelling. INTEGUMENTARY: Denies rash, denies eczema. NEUROLOGICAL: Denies recent memory loss, no recent seizure activity. PSYCHIATRIC: Denies anxiety, denies depression. HEMATOLOGIC/LYMPHATIC: Denies anemia, denies enlarged lymph nodes. Past Medical History Past Medical History: Coronary Artery Disease (CAD), Cancer, COPD, CVA/TIA, Diabetes Mellitus, GERD/Reflux, Hyperlipidemia, Hypertension, Myocardial Infarction ([place]), Osteoarthritis (OA), Pneumonia, Seizure Disorder, Sleep Apnea/CPAP/BIPAP Additional Past Medical History / Comment(s): LAST SEIZURE 2018; lumbar rad iculopathy; neuropathy; no CPAP needed per recent sleep study, hx. lung cancer, cellulitis of both lower legs 2020 Last Myocardial Infarction Date:: 10/22/10 History of Any Multi-Drug Resistant Organisms: None Reported Past Surgical History: Back Surgery, Cholecystectomy, Heart Catheterization With Stent Additional Past Surgical History / Comment(s): LAMINECTOMY ,fusion,spinal stimulator LEFT SHOULDER sx, 07-31-15 revison thoracic laminectomy t10- t11/removal of neuro stimulator and wires removed, fused L1&2 to a cage fusion that was previously put in to L3,4,5. May 27/2018. lobectomy of right middle lung Past Anesthesia/Blood Transfusion Reactions: No Reported Reaction Date of Last Stent Placement:: 10/22/10 Past Psychological History: Depression Smoking Status: Former smoker Past Alcohol Use History: None Reported Past Drug Use History: None Reported - Past Family History Brother(s) Family Medical History: Deep Vein Thrombosis (DVT) Mother Family Medical History: Osteoarthritis (OA) Additional Family Medical History / Comment(s): psoriases, Parkinsons Father Family Medical History: Coronary Artery Disease (CAD) Additional Family Medical History / Comment(s): heart problems- quad bypass, Medications and Allergies Home Medications Medication Instructions Recorded Confirmed Type rOPINIRole HCL [Requip] 3 mg PO TID 05/30/19 12/06/24 History Montelukast [Singulair] 10 mg PO HS 07/21/19 12/06/24 History levETIRAcetam [Keppra] 1,500 mg PO BID 05/03/20 12/06/24 History Atorvastatin [Lipitor] 80 mg PO HS 10/23/20 12/06/24 History Clopidogrel [Plavix] 75 mg PO DAILY 12/06/22 12/06/24 History DULoxetine HCL [Cymbalta] 30 mg PO HS 06/15/23 12/06/24 History Ergocalciferol (Vitamin D2) 1,250 mcg PO ANDERSON 06/15/23 12/06/24 History [Drisdol (50,000 Iu)] Insulin Aspart [NovoLOG Flexpen] 4 - 6 units SQ TID PRN 06/15/23 12/06/24 History Insulin Glargine,Hum.rec.anlog 45 unit SQ BID 06/15/23 12/06/24 History [Basaglar Jeramyikpen U-100] Empagliflozin [Jardiance] 10 mg PO DAILY 09/15/23 12/06/24 History Meloxicam [Mobic] 15 mg PO DAILY 07/11/24 12/06/24 History traZODone HCL 150 mg PO HS 07/11/24 12/06/24 History Famotidine [Pepcid] 20 mg PO DAILY #30 tab 07/13/24 12/06/24 Rx Albuterol Inhaler [Ventolin Hfa 2 puff INHALATION RT-Q4H PRN 12/06/24 12/06/24 History Inhaler] Amitriptyline HCl [Elavil] 50 mg PO HS 12/06/24 12/06/24 History Bumetanide [Bumex] 1 mg PO DAILY 12/06/24 12/06/24 History Gabapentin 600 mg PO QID 12/06/24 12/06/24 History HYDROcodone/APAP 7.5-325MG [[place] 1 tab PO DAILY PRN 12/06/24 12/06/24 History 7.5-325] Linagliptin [Tradjenta] 5 mg PO DAILY 12/06/24 12/06/24 History Metoprolol Succinate [Metoprolol 12.5 mg PO DAILY 12/06/24 12/06/24 History Succinate ER] Midodrine HCl [ProAmantine] 2.5 mg PO TID PRN 12/06/24 12/06/24 History Ondansetron [Ondansetron ODT] 4 mg SL Q6H PRN 12/06/24 12/06/24 History Spironolactone [Aldactone] 25 mg PO DAILY 12/06/24 12/06/24 History Tirzepatide [Mounjaro] 5 mg SQ Q7D 12/06/24 12/06/24 History Allergies Allergy/AdvReac Type Severity Reaction Status Date / Time No Known Allergies Allergy Verified 12/06/24 14:56 Physical Exam Vitals: Vital Signs Temp Pulse Pulse Pulse Resp BP BP 12/07/24 07:00 97.5 F L 76 18 95/58 12/07/24 02:00 97.9 F 64 16 94/59 12/06/24 23:59 12/06/24 20:00 97.8 F 69 16 88/54 12/06/24 16:23 97.4 F L 69 18 109/65 12/06/24 14:40 68 18 88/61 12/06/24 12:32 97.9 F 87 18 119/80 Pulse Ox FiO2 12/07/24 07:00 100 12/07/24 02:00 98 12/06/24 23:59 21 12/06/24 20:00 100 12/06/24 16:23 96 12/06/24 14:40 98 12/06/24 12:32 Intake and Output 12/06/24 12/07/24 12/07/24 22:59 06:59 14:59 Intake Total 222 118 Output Total 300 650 Balance -78 -532 Intake: Oral 222 118 Output: Urine 300 650 Other: Voiding Method Urinal Urinal # Voids 2 Weight 132.449 kg GENERAL EXAM: Alert, cooperative, obese 59-year-old male, on room air, comfortable in no apparent distress. HEAD: Normocephalic. EYES: Normal reaction of pupils, equal size. NOSE: Clear with pink turbinates. THROAT: No erythema or exudates. NECK: No masses, no JVD. CHEST: No chest wall deformity. LUNGS: Equal air entry with no crackles, wheeze, rhonchi or dullness. CVS: S1 and S2 normal with no audible murmur, regular rhythm. ABDOMEN: No hepatosplenomegaly, normal bowel sounds, no guarding or rigidity. SPINE: No scoliosis or deformity SKIN: No rashes CENTRAL NERVOUS SYSTEM: No focal deficits, tone is normal in all 4 extremities. EXTREMITIES: There is 1-2+ peripheral edema. No clubbing, no cyanosis. Peripheral pulses are intact. Results - Laboratory Findings CBC and BMP: 12/07/24 04:51 12/07/24 04:51 PT/INR, D-dimer PT 9.8 sec (10.0-12.5) L 12/06/24 13:28 INR 0.9 (<1.2) 12/06/24 13:28 Abnormal lab findings: Abnormal Labs 12/06/24 12/06/24 12/06/24 13:28 13:28 13:28 RBC 4.20 L Hgb 11.9 L Hct 36.5 L MCHC PT 9.8 L VBG pCO2 61 H VBG HCO3 35 H Chloride Carbon Dioxide BUN/Creatinine Ratio Glucose POC Glucose (mg/dL) Hemoglobin A1c 12/06/24 12/06/24 12/07/24 13:28 20:02 04:51 RBC Hgb Hct MCHC PT VBG pCO2 VBG HCO3 Chloride 96 L Carbon Dioxide 36 H BUN/Creatinine Ratio Glucose 122 H POC Glucose (mg/dL) 125 H Hemoglobin A1c 6.4 H 12/07/24 12/07/24 12/07/24 04:51 04:51 05:38 RBC 4.06 L Hgb 11.5 L Hct 36.7 L MCHC 31.3 L PT VBG pCO2 VBG HCO3 Chloride Carbon Dioxide 32.8 H BUN/Creatinine Ratio 10.50 L Glucose 128 H POC Glucose (mg/dL) 141 H Hemoglobin A1c - Diagnostic Findings Chest x-ray: image reviewed Assessment and Plan Assessment: Lower extremity pain and edema secondary to suspected diastolic congestive heart failure, cor pulmonale. Dopplers ruled out DVT bilaterally Mild hypercapnia secondary to obstructive sleep apnea, obesity/hypoventilation syndrome Obstructive sleep apnea intolerant to CPAP in the past Morbid obesity Coronary artery disease with previous stent placement Diabetes mellitus type 2 History of lung cancer with previous right middle lobectomy in 2019 History of seizure disorder Hypertension Hyperlipidemia History of CVA/TIA Osteoarthritis with multiple orthopedic surgeries Plan: The patient was seen and evaluated Chest x-ray, labs and medications reviewed EKG reviewed, venous Doppler reviewed Known history of obstructive sleep apnea Intolerant to CPAP in the past Educated regarding other types of mask, nasal mask Recommend follow-up at the sleep center If patient becomes lethargic could utilize BiPAP here Resume his home medications Lovenox for DVT prophylaxis Bronchodilators as needed We will continue to follow and make further recommendations based on his clinical status I have personally seen and examined the patient, performed the documentation and the assessment and plan as written. Number of minutes spent on the visit: 20 Dictation was produced using [employer] dictation software. Please excuse any grammatical, word or spelling errors.
--- NOTE | 2024-12-07 13:16 | P.DS ---
Providers Date of admission: 12/06/24 14:14 Expected date of discharge: 12/07/24 Attending physician: Cory Shaffer Consults: 12/06/24 14:53 Consult Physician Routine Consulting Provider: Nadira Montalvo Consult Reason/Comments: acute hypercapneic resp failure Do you want consulting provider notified?: Yes Primary care physician: Charles Thompson MD Hospital Course: Discharge Diagnosis: Acute hypercapnic respiratory failure likely multifactorial secondary to Obesity hypoventilation syndrome vs recent decrease of Bumex from 3 mg daily down to 1 mg daily, vs opioid induced as patient has morphine pain pump and was recently started on [place] COPD. Patient strongly encouraged to use home CPAP as previously prescribed and to follow back outpatient with sleep center for evaluation and fitting of alternative masks to ensure he better tolerates. Bumex was increased to 1 mg twice daily, [place] discontinued and strongly recommend decreasing dose of Neurontin dose down to 300 mg 3 times daily (plus discussed with PCP and will defer dose changes to their discretion). History of lung cancer status post right lobectomy Obstructive sleep apnea CAD with previous MO Chronic diastolic heart failure History of CVA with left-sided residual deficits Hypertension Hyperlipidemia Bilateral lower extremity edema, venous stasis dermatitis, recommend compression stockings to bilateral lower extremities and elevation of lower limbs. PVD with Bilateral lower extremity neuropathy Generalized weakness with recurrent falls at home. Wheelchair bound at baseline. History of seizure disorder Insulin-dependent diabetes mellitus Hospital Course: Patient is a pleasant 59-year-old male who is baseline wheelchair-bound with a past medical history of COPD, lung cancer status post right lobectomy, obstructive sleep apnea previously dependent on CPAP, CAD with previous MO status post stenting, chronic diastolic heart failure, peripheral vascular disease with bilateral lower extremity neuropathy, hypertension, hyperlipidemia, insulin-dependent diabetes mellitus, chronic back pain with previous thoracic fusions and cage placement with morphine pain pump implantation, CVA with left- sided residual deficits, and seizure disorder. Patient presented to the emergency department today with multiple complaints. He was sent by his PCP, Dr. Thompson. On discussion with patient's PCP via telephone, he reports that patient has had increased weakness and multiple falls over the last 3 days, complaining of bilateral lower extremity swelling, increasing shortness of breath and concerns that patient was slow to respond and appeared weakner. Patient had recent hospitalization at [facility] on 11/14/2024 for CHF exacerbation. Patient's PCP reports that patient's cloth dye range operator decreased patient's Bumex from 3 mg daily down to 1 mg daily and patient was also recently started on [place] in addition to his pain pump. Patient currently reports increasing bilateral lower extremity swelling and pain along with shortness of breath and a cough with wolf sputum production. Patient denies any recent fevers, chills, diaphoresis, chest pain, palpitations, nausea, vomiting, or experiencing any increased or changes in his left upper or lower extremity weakness from previous CVA. Patient reports he is wheelchair bound at baseline, but does admit to falls recently from transfers. He denies any increase in his chronic back pain or any other complaints at this time. Upon arrival to our facility, patient underwent evaluation in the emergency department. Vital signs upon arrival show blood pressure 119/80, heart rate 87, respiratory rate 18, temp 97.9 F, and SpO2 of 98% on room air. EKG was completed showing normal sinus rhythm at 79 bpm with no noted T wave or ST abnormality showing no signs of acute ischemia upon personal review and interpretation. Chest x-ray completed showing low lung volumes with generalized haziness likely secondary to atelectasis versus mild pulmonary edema. Completed and reviewed. CBC showing normocytic anemia with hemoglobin of 11.9. Coagulation profile showing a low PTT of 9.8 otherwise normal findings. VBG showing compensated respiratory acidosis with pH of 7.36, pCO2 of 61, bicarb of 35. BMP showing chloride of 96, bicarb of 36, and anion gap of 5. Blood glucose 122. Lactic acid 1.4. Liver profile unremarkable. proBNP less than 20. Influenza A, influenza B, RSV, and COVID PCR negative. ED physician ordered for patient to be placed on BiPAP. Patient admitted under our services with consultation to pulmonology. Patient declined use of BiPAP as recommended during hospitalization. He underwent overnight admission to observation unit, he is maintaining oxygen saturations on room air. He was evaluated by merchandise marker and it was recommended to discontinue antibiotics. Pulmonology recommending and encouraging patient to return to sleep center regarding importance of home CPAP use and educated patient on other types of masks including and nasal masks that are available. Patient evaluated by physical and Occupational Therapy and patient reported feeling at baseline mobility declining any further physical therapy needs stating he feels at baseline and ready to go home. Called and discussed with patient's PCP and recommendations regarding concerns for CO2 narcosis and recommendations on CPAP use and reevaluation by sleep center for possible fitting of alternative masks were given to decrease Neurontin, discontinue [place], and Bumex increased to 1 mg twice daily. Patient again strongly educated on the importance of CPAP/BiPAP use nightly and encouraged to wear compression stockings to bilateral lower extremities and elevate lower extremities as much as possible. Patient informed if his legs continue to be in dependent position without any elevation and he will continue to have lower extremity edema and pain. Physical exam: Vital signs reviewed and stable. General: Nontoxic, no distress and appears stated age. Patient with significant kyphosis. Derm: Skin warm and dry, normal coloration for ethnicity. Head: Atraumatic, normocephalic and symmetric. Eyes: EOM's intact, no lid lag, and anicteric sclera Mouth: no lip lesions, mucus membranes moist Cardiovascular: regular rate and rhythm with normal S1S2, no murmur, positive posterior tibial pulses bilaterally, and cap refill < 2 seconds. Lungs: Respirations even, regular, and unlabored on room air. Lungs diminished. No rhonchi, no rales, no wheezing, and no accessory muscle usage. Abdominal: Obese abdomen, soft, nontender to palpation, no guarding, no appreciable organomegaly Ext:. No gross muscle atrophy, no edema, no contractures. Patient with weakness in left upper and left lower extremity secondary to previous CVA, reports his baseline. 2+ pitting bilateral lower extremity edema with venous stasis dermatitis. Neuro: Speech slightly slow to respond, unclear if baseline but patient reports is normal face symmetrical. GCS 15. Psych: Alert and oriented to person, place, time, and situation. Appropriate and pleasant affect. A total of 40 minutes of time were spent preparing this complex discharge summary. Pt was discharged on 12/07/2024 at 1:15 PM. Patient was seen independently by Nurse Practitioner. This document was prepared using Hello[employer] dictation software. Please allow for errors in sign builder while rare they do occur. Jung Townsend NP rendered care for this patient independently, reviewed the findings and plan as documented in the note above. I did not physically speak with or examine the patient on this date. Patient Condition at Discharge: Stable Plan - Discharge Summary New Discharge Prescriptions: New Bumetanide [Bumex] 1 mg PO BID 30 Days #60 tablet Continue rOPINIRole HCL [Requip] 3 mg PO TID Montelukast [Singulair] 10 mg PO HS levETIRAcetam [Keppra] 1,500 mg PO BID Atorvastatin [Lipitor] 80 mg PO HS Clopidogrel [Plavix] 75 mg PO DAILY Ergocalciferol (Vitamin D2) [Drisdol (50,000 Iu)] 1,250 mcg PO ANDERSON DULoxetine HCL [Cymbalta] 30 mg PO HS Insulin Glargine,Hum.rec.anlog [Basaglar Kwikpen U-100] 45 unit SQ BID Famotidine [Pepcid] 20 mg PO DAILY #30 tab Spironolactone [Aldactone] 25 mg PO DAILY Linagliptin [Tradjenta] 5 mg PO DAILY Ondansetron [Ondansetron ODT] 4 mg SL Q6H PRN PRN Reason: nausea Tirzepatide [Mounjaro] 5 mg SQ Q7D Metoprolol Succinate [Metoprolol Succinate ER] 12.5 mg PO DAILY Amitriptyline HCl [Elavil] 50 mg PO HS Albuterol Inhaler [Ventolin Hfa Inhaler] 2 puff INHALATION RT-Q4H PRN PRN Reason: Shortness Of Breath Insulin Aspart [NovoLOG Flexpen] 4 - 6 units SQ TID PRN PRN Reason: bs over 150 Empagliflozin [Jardiance] 10 mg PO DAILY Meloxicam [Mobic] 15 mg PO DAILY traZODone HCL 150 mg PO HS Midodrine HCl [ProAmantine] 2.5 mg PO TID PRN PRN Reason: sbp 90mmhg Gabapentin 600 mg PO QID Discontinued HYDROcodone/APAP 7.5-325MG [Dan[place] 7.5-325] 1 tab PO DAILY PRN PRN Reason: Pain Bumetanide [Bumex] 1 mg PO DAILY Discharge Medication List rOPINIRole HCL [Requip] 3 mg PO TID 05/30/19 [History] Montelukast [Singulair] 10 mg PO HS 07/21/19 [History] levETIRAcetam [Keppra] 1,500 mg PO BID 05/03/20 [History] Atorvastatin [Lipitor] 80 mg PO HS 10/23/20 [History] Clopidogrel [Plavix] 75 mg PO DAILY 12/06/22 [History] DULoxetine HCL [Cymbalta] 30 mg PO HS 06/15/23 [History] Ergocalciferol (Vitamin D2) [Drisdol (50,000 Iu)] 1,250 mcg PO ANDERSON 06/15/23 [History] Insulin Aspart [NovoLOG Flexpen] 4 - 6 units SQ TID PRN 06/15/23 [History] Insulin Glargine,Hum.rec.anlog [Basaglar Kwikpen U-100] 45 unit SQ BID 06/15/23 [History] Empagliflozin [Jardiance] 10 mg PO DAILY 09/15/23 [History] Meloxicam [Mobic] 15 mg PO DAILY 07/11/24 [History] traZODone HCL 150 mg PO HS 07/11/24 [History] Famotidine [Pepcid] 20 mg PO DAILY #30 tab 07/13/24 [Rx] Albuterol Inhaler [Ventolin Hfa Inhaler] 2 puff INHALATION RT-Q4H PRN 12/06/24 [History] Amitriptyline HCl [Elavil] 50 mg PO HS 12/06/24 [History] Gabapentin 600 mg PO QID 12/06/24 [History] Linagliptin [Tradjenta] 5 mg PO DAILY 12/06/24 [History] Metoprolol Succinate [Metoprolol Succinate ER] 12.5 mg PO DAILY 12/06/24 [History] Midodrine HCl [ProAmantine] 2.5 mg PO TID PRN 12/06/24 [History] Ondansetron [Ondansetron ODT] 4 mg SL Q6H PRN 12/06/24 [History] Spironolactone [Aldactone] 25 mg PO DAILY 12/06/24 [History] Tirzepatide [Mounjaro] 5 mg SQ Q7D 12/06/24 [History] Bumetanide [Bumex] 1 mg PO BID 30 Days #60 tablet 12/07/24 [Rx] Follow up Appointment(s)/Referral(s): Charles Thompson MD [Primary Care Provider] - 1-2 days Nadira Montalvo MD [STAFF PHYSICIAN] - 1 Week Patient Instructions/Handouts: Sleep Apnea (GEN), COPD (Chronic Obstructive Pulmonary Disease) (DC), Stasis Dermatitis (DC), CPAP (GEN) Activity/Diet/Wound Care/Special Instructions: Activity: As tolerated. Diet: Heart healthy and carb consistent diet. Avoid salts, or foods with hidden salts such as canned or boxed foods and frozen dinners. Extra salt makes your heart work harder and traps the fluid in your body for longer. Special Instructions: Take all of your medications as directed and remember to keep all of your doctor's appointments and follow-up as needed. As discussed with your PCP, recommend discontinuation of [place] and decreased dose of Neurontin dose down to 300 mg 3 times daily (but will defer whether or not dose will be decreased to your PCP). Also as we discussed at bedside, recommend compression stockings to bilateral lower extremities and elevation of lower limbs. It is strongly recommended that you wear your CPAP nightly, you can follow-up at sleep center with merchandise marker (Dr. Montalvo) for evaluation of different types of masks that may be more tolerable to you. Thank you for allowing us to participate in your care, it was truly a pleasure having you for our patient!!! Discharge Disposition: HOME SELF-CARE
== END 2024-12-07 14:18 | disposition home or self-care (01) ==
LOC: EC 12:28 → 6NMEDSUR 14:14
PROVIDERS: ADMIT Student in an Organized Health Care Education/Training Program; ATTEND Student in an Organized Health Care Education/Training Program
DX: J96.02 Acute respiratory failure with hypercapnia (principal); E66.2 Morbid (severe) obesity with alveolar hypoventilation; E11.51 Type 2 diabetes mellitus with diabetic peripheral angiopathy without gangrene; J44.9 Chronic obstructive pulmonary disease, unspecified; D64.9 Anemia, unspecified; E78.5 Hyperlipidemia, unspecified; E87.29 Other acidosis; F32.A Depression, unspecified; G40.909 Epilepsy, unspecified, not intractable, without status epilepticus; I11.0 Hypertensive heart disease with heart failure; I50.32 Chronic diastolic (congestive) heart failure; I25.10 Atherosclerotic heart disease of native coronary artery without angina pectoris; I25.2 Old myocardial infarction; I69.954 Hemiplegia and hemiparesis following unspecified cerebrovascular disease affecting left non-dominant side; M19.90 Unspecified osteoarthritis, unspecified site; R29.6 Repeated falls; Z79.02 Long term (current) use of antithrombotics/antiplatelets; Z79.1 Long term (current) use of non-steroidal anti-inflammatories (NSAID); Z79.4 Long term (current) use of insulin; Z79.84 Long term (current) use of oral hypoglycemic drugs; Z79.899 Other long term (current) drug therapy; Z85.118 Personal history of other malignant neoplasm of bronchus and lung; Z87.891 Personal history of nicotine dependence; Z90.2 Acquired absence of lung [part of]; Z95.5 Presence of coronary angioplasty implant and graft; Z99.3 Dependence on wheelchair
CPT/HCPCS: 96366; 96367; 96372; 96365; 99285; 36415; 94660; 93005; 97161; 97165; 83880; 80053 ×2; 82803; 83605; 83735; 85025; 85027; 85610; 85730; 87040; 83036; 84145; 87636; 71045; 93970; G0378 ×2; J3370; J0696 ×2; J1650

== ENCOUNTER → 2024-12-14 | Outpatient (CLI) | payer MEDICARE, OTHER ==
--- NOTE | 2024-12-14 09:48 | US ---
EXAMINATION TYPE: US duplex aorta DATE OF EXAM: 12/14/2024 COMPARISON: US 2024 CLINICAL INDICATION: Male, 59 years old with history of Z13.6 ENCOUNTER FOR SCREENING FOR CARDIOVASCU LAR D; Previous smoker, diabetic. TECHNIQUE: Multiple sonographic images of the abdominal aorta are obtained with grayscale and color D oppler imaging. FINDINGS: EXAM MEASUREMENTS: Abdominal Aorta: Proximal: 2.8 x 2.9 cm Mid: 2.6 x 2.9 cm Distal: Obscured Bifurcation: Right Iliac: Obscured Left Iliac: Obscured EMU FARMER NOTES: Proximal and mid segments appear ectatic. Distal segment and iliac arteries were obscured. Exam is again limited due to gas and patient body habitus. Patient was scanned in bed. Proximal mid abdominal aorta are ectatic measuring up to 2.9 cm the distal abdominal aorta and bilate ral iliac arteries are obscured by overlying bowel gas. There is color flow with ductal venous wavefo aden within the mid abdominal aorta. IMPRESSION: Nonvisualization of the distal abdominal aorta and iliac arteries due to overlying bowel gas. Proxima l and mid portions appear ectatic measuring up to 2.9 cm. Consider further evaluation with CT or MRI to exclude distal abdominal aortic aneurysm as clinically indicated. [facility], , 12/14/2024 9:46 AM
== END | disposition home or self-care (01) ==
LOC: RADUSWWP 08:38
PROVIDERS: ATTEND Internal Medicine Hospice and Palliative Medicine
DX: Z13.6 Encounter for screening for cardiovascular disorders (principal); I77.811 Abdominal aortic ectasia; E11.9 Type 2 diabetes mellitus without complications; Z87.891 Personal history of nicotine dependence
CPT/HCPCS: 93979

== ENCOUNTER → 2024-12-20 | Outpatient (CLI) | payer OTHER ==
[2024-12-20 13:44] VITALS: BP 94/59; PULSE 88; RESP 16; TEMP 98.1
--- NOTE | 2024-12-20 14:29 | P.SLEEP ---
History of Present Illness DATE: 12/20/2024 CONSULTATION/NEW PATIENT EVALUATION HISTORY OF PRESENT ILLNESS/SLEEP-WAKE EVALUATION: 59-year-old gentleman had been evaluated in the sleep center for possible obstructive sleep apnea hypopnea syndrome. SLEEP SCHEDULE: Usually sleep schedule from midnight until 2 AM, then patient may sleep during the day for several hours. FALLING ASLEEP: No problems with falling asleep. DURING SLEEP: Patient snores and has episodes of stop breathing during the sleep. He wakes up from sleep 3 times with 2 episodes of nocturia. Positive history of restless leg symptoms. No history of hypnogogical hallucinations, sleep paralysis, or cataplexy. DURING THE DAY/WAKE STATE: During the day patient feels sleepy, has problems with memory, concentration, irritability, depression.. Leivasy sleepiness scale is increased to 11.. PAST MEDICAL HISTORY: Coronary artery disease, heart attack, stroke x 2, COPD, CHF, epilepsy back fracture, diabetes lung cancer. PAST SURGICAL HISTORY: Right middle lobe of the lung resection for cancer, spinal cord stimulator, L1-L5 fusion. MEDICATIONS: Have been reviewed, please see below. SOCIAL HISTORY: Please see below. FAMILY HISTORY: Please see below. REVIEW OF SYSTEMS: Snoring, multiple awakenings from sleep, episodes of stop breathing during the sleep, sleepiness. No fevers. No double vision. No recent chest pain. No shortness of breath. No abdominal pain. No bleeding episodes. No blood in urine. No seizure episodes. PHYSICAL EXAMINATION: GENERAL: A pleasant patient without any distress on wheelchair. VITAL SIGNS: See below, weight around 295 pounds. HEENT: PERRLA, EOMI. Evaluation of oropharynx showed tongue protrudes midline, low position of soft palate Mallampati 23, wide pillars. NECK: Supple. No JVD. Thyroid is not palpable. 19.5 inches in circumference. LUNGS: Clear to percussion and to auscultation. Good air exchange. No wheezing or rhonchi. HEART: S1, S2 regular. No murmurs, gallops or rubs. ABDOMEN: Soft and nontender. Bowel sounds are present. No organomegaly appreciated. EXTREMITIES: No clubbing or cyanosis. Bilateral lower leg swelling. COLD WATER MACHINE OPERATOR: Awake, alert, and oriented x3. Cranial nerves 2 to 7 intact. Some weakness on the left side ASSESSMENT: 1. Snoring, episodes of stop breathing during the sleep, small oropharyngeal airspace, wide neck 19.5 inches in circumference, sleepiness with Leivasy Sleepiness Scale 11. Obstructive sleep apnea hypopnea syndrome. 2. History of COPD patient is on 2 L oxygen supplement during the night. 3. Coronary artery disease, status post heart attack and stent insertion. 4. History of stroke x 2 with some residual left-sided weakness. 5 obesity. 6 . COPD. 7. Status post right middle lobe ectomy for lung cancer. 8. Diabetes mellitus. 9 . Back problems, status post back fusion L1-L5. 10. CHF. 11. Status post cholecystectomy. PLAN: 1. Polysomnography for evaluation of patient's breathing during sleep. 2. Following plan after reading sleep study. 3. Preferable position during sleep on the side. 4. No driving if patient feels any sleepiness. Patient is aware of civil and criminal liability for unsafe driving. 5. Sleep hygiene with regular sleep time for at least 7.5-8 hours. 6. Watching and losing weight. Thank you very much for referring this patient for consultation. Sincerely, Nicolas Menjivar MD, PhD, FAASM. Diplomat of [place] [employer], Sleep Medicine Board by [place] [employer] [place] [employer] [facility] [place] cc:Charles Thompson MD Past Medical History Past Medical History: Coronary Artery Disease (CAD), Cancer, COPD, CVA/TIA, Diabetes Mellitus, GERD/Reflux, Hyperlipidemia, Hypertension, Myocardial Infarction (MA), Osteoarthritis (OA), Pneumonia, Seizure Disorder, Sleep Apnea/CPAP/BIPAP Additional Past Medical History / Comment(s): LAST SEIZURE 2018; lumbar radiculopathy; neuropathy; no CPAP needed per recent sleep study, hx. lung cancer, cellulitis of both lower legs 2020 Last Myocardial Infarction Date:: 10/22/10 History of Any Multi-Drug Resistant Organisms: None Reported Past Surgical History: Back Surgery, Cholecystectomy, Heart Catheterization With Stent Additional Past Surgical History / Comment(s): LAMINECTOMY ,fusion,spinal stimulator LEFT SHOULDER sx, 07-31-15 revison thoracic laminectomy t10- t11/removal of neuro stimulator and wires removed, fused L1&2 to a cage fusion that was previously put in to L3,4,5. May 27/2018. 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 Smoking Status: Former smoker Past Alcohol Use History: None Reported Additional Past Alcohol Use History / Comment(s): STARTED SMOKING 1977. Unable to obtain stopped smoking date. Past Drug Use History: None Reported Additional Drug Use History / Comment(s): HAS A MEDICAL MARIJUANA CARD-no current use. - Past Family History Brother(s) Family Medical History: Deep Vein Thrombosis (DVT) Mother Family Medical History: Osteoarthritis (OA) Additional Family Medical History / Comment(s): psoriases, Parkinsons Father Family Medical History: Coronary Artery Disease (CAD) Additional Family Medical History / Comment(s): heart problems- quad bypass, Medications and Allergies Home Medications Medication Instructions Recorded Confirmed Type rOPINIRole HCL [Requip] 3 mg PO TID 05/30/19 12/20/24 History Montelukast [Singulair] 10 mg PO HS 07/21/19 12/20/24 History levETIRAcetam [Keppra] 1,500 mg PO BID 05/03/20 12/20/24 History Atorvastatin [Lipitor] 80 mg PO HS 10/23/20 12/20/24 History Clopidogrel [Plavix] 75 mg PO DAILY 12/06/22 12/20/24 History DULoxetine HCL [Cymbalta] 30 mg PO HS 06/15/23 12/20/24 History Ergocalciferol (Vitamin D2) 1,250 mcg PO ANDERSON 06/15/23 12/20/24 History [Drisdol (50,000 Iu)] Insulin Aspart [NovoLOG Flexpen] 4 - 6 units SQ TID PRN 06/15/23 12/20/24 History Insulin Glargine,Hum.rec.anlog 45 unit SQ BID 06/15/23 12/20/24 History [Basaglar Kwikpen U-100] Empagliflozin [Jardiance] 10 mg PO DAILY 09/15/23 12/20/24 History Meloxicam [Mobic] 15 mg PO DAILY 07/11/24 12/20/24 History traZODone HCL 150 mg PO HS 07/11/24 12/20/24 History Famotidine [Pepcid] 20 mg PO DAILY #30 tab 07/13/24 12/20/24 Rx Albuterol Inhaler [Ventolin Hfa 2 puff INHALATION RT-Q4H PRN 12/06/24 12/20/24 History Inhaler] Amitriptyline HCl [Elavil] 50 mg PO HS 12/06/24 12/20/24 History Gabapentin 600 mg PO QID 12/06/24 12/20/24 History Linagliptin [Tradjenta] 5 mg PO DAILY 12/06/24 12/20/24 History Metoprolol Succinate [Metoprolol 12.5 mg PO DAILY 12/06/24 12/20/24 History Succinate ER] Midodrine HCl [ProAmantine] 2.5 mg PO TID PRN 12/06/24 12/06/24 History Ondansetron [Ondansetron ODT] 4 mg SL Q6H PRN 12/06/24 12/06/24 History Spironolactone [Aldactone] 25 mg PO DAILY 12/06/24 12/20/24 History Tirzepatide [Mounjaro] 5 mg SQ Q7D 12/06/24 12/20/24 History Bumetanide [Bumex] 1 mg PO BID 30 Days #60 tablet 12/07/24 12/20/24 Rx Allergies Allergy/AdvReac Type Severity Reaction Status Date / Time No Known Allergies Allergy Verified 12/06/24 14:56 Physical Exam Vitals: Vital Signs Temp Pulse Resp BP Pulse Ox 12/20/24 13:43 98.1 F 88 16 94/59 93 L Intake and Output 12/19/24 12/20/24 12/20/24 22:59 06:59 14:59 Other: Weight 133.81 kg Sleep Note - Sleep Data ESS Total: 11 - Sleep Note Sleep Note: Temperature: 98.1 F Pulse Rate: 88 Respiratory Rate: 16 Blood Pressure: 94/59 SpO2: 93 Height: 6 ft Weight: 133.81 kg BMI: Neck Circumference: 19.5
== END ==
LOC: 3 N SLEEP 13:12
PROVIDERS: ATTEND Internal Medicine
DX: G47.33 Obstructive sleep apnea (adult) (pediatric) (principal); I69.352 Hemiplegia and hemiparesis following cerebral infarction affecting left dominant side; E66.09 Other obesity due to excess calories; E11.9 Type 2 diabetes mellitus without complications; K91.5 Postcholecystectomy syndrome; I50.9 Heart failure, unspecified; Z85.118 Personal history of other malignant neoplasm of bronchus and lung; Z90.2 Acquired absence of lung [part of]; Z87.09 Personal history of other diseases of the respiratory system; Z87.891 Personal history of nicotine dependence
CPT/HCPCS: 99211

== ENCOUNTER 2025-01-02 10:17 | Day surgery (SDC) | payer OTHER ==
[~2025-01-02 10:17] MED LIST changes: +ALPRAZolam 0.25 MG TAB PO PRN; +ALPRAZolam 0.5 MG TAB PO PRN; -IOPAMIDOL M200 10 ML VIAL ONE; -IV FLUID CONTINUATION 1,000 ML IV ONE; -LACTATED RINGERS 1,000 ML IV ONE; -LACTATED RINGERS 1,000 ML IV SCH; -LIDOCAINE 1% (10MG/ML) FOR IV START INTRADERMA ONE; -MIDAZOLAM 2 MG/2 ML VIAL ONE; +NITROGLYCERIN SL TABS 0.4 MG TAB SUBLINGUAL PRN; -ROPIVACAINE 5MG/ML 20ML VIAL ONE; -fentaNYL (PF) 50 MCG/ML 2 ML AMP ONE; -methylPREDNISolone ACETATE 40 MG/ML 1 ML VIAL ONE
[2025-01-02] MEDS: IV FLUID CONTINUATION 1,000 ML IV ONE (10:30)
[2025-01-02] MEDS: SODIUM CHLORIDE 0.9% 1,000 ML in EMPTY BAG 1 BAG IV SCH (10:42)
[2025-01-02] MEDS: ASPIRIN 325 MG TAB PO STA (10:42)
[2025-01-02 10:50] VITALS: TEMP 98.1
[2025-01-02 10:54] LABS: Glucose,Whole Blood 129 mg/dL (70-110)
[2025-01-02] MEDS: HYDROmorphone 0.5 MG/0.5 ML SYRINGE IVP ONE ×2 (11:47→12:03)
[2025-01-02] MEDS: MIDAZOLAM 2 MG/2 ML VIAL IVP ONE (11:47)
[2025-01-02] MEDS: HEPARIN SODIUM,PORCINE 10,000 UNIT in SODIUM CHLORIDE 0.9% 1,000 ML IRRIGATION PRN (11:48)
[2025-01-02] MEDS: HEPARIN SODIUM,PORCINE (1 ML) 2,500 UNIT in SODIUM CHLORIDE 0.9% 250 ML IRRIGATION PRN (11:48)
[2025-01-02] MEDS: LIDOCAINE 1% INJ 10MG/ML (20 ML MDV) SQ ONE (11:51)
[2025-01-02] MEDS: fentaNYL (PF) 50 MCG/ML 2 ML AMP IVP ONE (12:14)
[2025-01-02 12:47] VITALS: RESP 16
--- NOTE | 2025-01-02 13:32 | CC ---
CARDIAC CATHETERIZATION REPORT PROCEDURE: Attempted cardiac catheterization. INDICATION: Mr. Amaya was brought into the matlab developer after detailed discussion regarding the procedure. He had a history of CAD with a prior PCI of RCA performed in 2010, which was patent in 2019. Because of an abnormality on the echo with anteroapical hypokinesia, he was advised a cardiac cath. PROCEDURE NOTE: The patient had a lot of difficulty lying on his back. We gave him Dilaudid, fentanyl, and Versed. However, he continued to have a lot of back pain and I had difficulty gaining access into the right radial with ultrasound help. On multiple occasions, I gained access with a good blood return, but could not advance the wire. I therefore abandoned the procedure and explained to him that we will pursue medical therapy and I will re-evaluate him in the office as scheduled within the next 10 to 14 days. I also called patient advocate Mr. Felice Vick and explained this. We will pursue medical therapy and will not do a coronary angiogram at this time. The procedure was therefore not performed and this was explained to the patient as well as the patient's advocate and his attendant who came from [facility]. [id number] / IJN: [id number] /
[2025-01-02 14:17] VITALS: BP 140/73; PULSE 91
--- NOTE | 2025-01-03 10:14 | CA ---
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 Hillary Dan, ZANE Procedure CPT: Indications: LV function and wall motion Cardiac Hx: Technical Quality: Poor, Very technically difficult study Contrast 1: Definity Total Dose (mL): 2 Contrast 2: Total Dose (mL): MEASUREMENTS (Male / Female) Normal Values 2D ECHO LV Diastolic Diameter PLAX 4.3 cm 4.2 - 5.9 / 3.9 - 5.3 cm LV Systolic Diameter PLAX 2.6 cm IVS Diastolic Thickness 1.4 cm 0.6 - 1.0 / 0.6 - 0.9 cm LVPW Diastolic Thickness 1.5 cm 0.6 - 1.0 / 0.6 - 0.9 cm LV Relative Wall Thickness 0.7 RV Internal Dim ED PLAX 2.6 cm LA Systolic Diameter LX 3.3 cm 3.0 - 4.0 / 2.7 - 3.8 cm M-MODE Aortic Root Diameter MM 3.9 cm LA Systolic Diameter MM 2.6 cm LA Ao Ratio MM 0.7 AV Cusp Separation MM 1.9 cm DOPPLER MV Area PHT 2.8 cm??? Mitral E Point Velocity 68.9 cm/s Mitral A Point Velocity 73.8 cm/s Mitral E to A Ratio 0.9 MV Deceleration Time 273.3 ms TR Peak Velocity 204.9 cm/s TR Peak Gradient 16.8 mmHg Right Atrial Pressure 8.0 mmHg Pulmonary Artery Systolic Pressu 24.8 mmHg Right Ventricular Systolic Press 24.8 mmHg FINDINGS Left Ventricle Left ventricular ejection fraction is estimated at 55-60%. Moderately increased septal wall thickness. Normal left ventricular systolic function with no obvious regional wall motion abnormalities. Left ventricular cavity size normal. No evidence of LV thrombus on contrast imaging Right Ventricle Right ventricle not well visualized. Right Atrium Right atrium not well visualized. Left Atrium Left atrium not well visualized. Mitral Valve Mitral valve not well visualized. Aortic Valve Trileaflet aortic valve. No aortic valve stenosis or regurgitation. Tricuspid Valve Structurally normal tricuspid valve. Mild tricuspid regurgitation. No tricuspid stenosis. Pulmonic Valve Structurally normal pulmonic valve. No pulmonic stenosis. Trace pulmonic regurgitation. Pericardium No pericardial or pleural effusion. Aorta Mild aortic dilatation at the level of the sinuses of valsalva (root). CONCLUSIONS Technically difficult study. Poor acoustic windows LVEF 55% Moderate LVH No obvious regional wall motion abnormality No major valvular dysfunction Previewed by: Dr Gene Dolan (Electronically Signed) Final Date: 03 January 2025 10:13
== END 2025-01-02 14:06 | disposition home or self-care (01) ==
LOC: CATHCVL 10:17
PROVIDERS: ATTEND Internal Medicine Interventional Cardiology
DX: I25.10 Atherosclerotic heart disease of native coronary artery without angina pectoris (principal); Z95.5 Presence of coronary angioplasty implant and graft
CPT/HCPCS: 93306; 93458; J2250; J1644 ×2; J2003; J3010; Q9957; J1171

== ENCOUNTER 2025-01-09 21:16 | Emergency (ER) | payer OTHER ==
[2025-01-09 21:22] VITALS: TEMP 97.7
[2025-01-09 21:33] LABS: Basophils # (A) 0.03 10*3/uL (0.00-0.10); Basophils % (A) 0.4 %; Eosinophils # (A) 0.22 10*3/uL (0.04-0.35); Eosinophils % (A) 3.2 %; HCT 36.4 % (39.6-50.0); HGB 11.8 g/dL (13.0-17.0); Lymphocytes # (A) 1.89 10*3/uL (0.90-5.00); Lymphocytes % (A) 27.5 %; MCH 28.6 pg (27.0-32.0); MCHC 32.4 g/dL (32.0-37.0); MCV 88.1 fL (80.0-97.0); Mean Platelet Volume 10.4 fL (9.5-12.2); Monocytes # (A) 0.51 10*3/uL (0.20-1.00); Monocytes % (A) 7.4 %; Neutrophils % (A) 61.1 %; Platelet Count 172 10*3/uL (140-440); RBC 4.13 10*6/uL (4.40-5.60); RDW 14.5 % (11.5-14.5); WBC 6.88 10*3/uL (4.50-10.00)
[2025-01-09 21:44] LABS: ALT 23 U/L (4-49); AST 26 U/L (17-59); African American GFR (CKD) >90 (>60 ml/min/1.73 sqM); Albumin 4.1 g/dL (3.5-5.0); Alkaline Phosphatase 85 U/L (38-126); Anion Gap 10 mmol/L; Blood Urea Nitrogen 11 mg/dL (9-20); Carbon Dioxide 37 mmol/L (22-30); Chloride 91 mmol/L (98-107); Glucose 131 mg/dL (74-99); INR 0.9 (<1.2); Magnesium 1.9 mg/dL (1.6-2.3); Non-African American GFR(CKD) 87 (>60 ml/min/1.73 sqM); Partial Thromboplastin Time 23.7 sec (22.0-30.0); Potassium 3.9 mmol/L (3.5-5.1); Prothrombin Time 9.9 sec (10.0-12.5); Sodium 138 mmol/L (137-145); Total Bilirubin 0.9 mg/dL (0.2-1.3); Total Protein 6.6 g/dL (6.3-8.2)
--- NOTE | 2025-01-09 21:55 | ED ---
General Adult HPI - General Chief complaint: Back Pain/Injury Stated complaint: Poss Stroke Time Seen by Provider: 01/09/25 21:22 Source: EMS Mode of arrival: EMS - History of Present Illness Initial comments: Dictation was produced using [employer] dictation software. please excuse any grammatical, word or spelling errors. Chief Complaint: 59-year-old male with back pain History of Present Illness: Patient 59-year-old male with history of CVA with residual left-sided deficits presents to the ER with right-sided back pain. EMS states that they were called for strokelike symptoms. EMS states that patient seemed to be droopy to 1 side. He states that patient complained that his last known normal was 1 hour ago. Patient states that is not worried about that more worried about his back pain. States he has right thoracic and right lower back pain. Denies any extremity issues. The ROS documented in this emergency department record has been reviewed and confirmed by me. Those systems with pertinent positive or negative responses have been documented in the HPI. All other systems are other negative and/or noncontributory. - Related Data Home Medications Medication Instructions Recorded Confirmed rOPINIRole HCL [Requip] 3 mg PO TID 05/30/19 01/02/25 Montelukast [Singulair] 10 mg PO HS 07/21/19 01/02/25 levETIRAcetam [Keppra] 1,500 mg PO BID 05/03/20 01/02/25 Atorvastatin [Lipitor] 80 mg PO HS 10/23/20 01/02/25 Clopidogrel [Plavix] 75 mg PO DAILY 12/06/22 01/02/25 DULoxetine HCL [Cymbalta] 30 mg PO HS 06/15/23 01/02/25 Ergocalciferol (Vitamin D2) 1,250 mcg PO ANDERSON 06/15/23 01/01/25 [Drisdol (50,000 Iu)] Insulin Aspart [NovoLOG Flexpen] 4 - 6 units SQ TID PRN 06/15/23 01/01/25 Insulin Glargine,Hum.rec.anlog 45 unit SQ BID 06/15/23 01/02/25 [Basaglar Kwikpen U-100] Empagliflozin [Jardiance] 10 mg PO DAILY 09/15/23 01/02/25 Meloxicam [Mobic] 15 mg PO DAILY 07/11/24 01/02/25 traZODone HCL 150 mg PO HS 07/11/24 01/02/25 Albuterol Inhaler [Ventolin Hfa 2 puff INHALATION RT-Q4H PRN 12/06/24 01/02/25 Inhaler] Amitriptyline HCl [Elavil] 50 mg PO HS 12/06/24 01/02/25 Gabapentin 600 mg PO QID 12/06/24 01/02/25 Linagliptin [Tradjenta] 5 mg PO DAILY 12/06/24 01/02/25 Metoprolol Succinate [Metoprolol 12.5 mg PO DAILY 12/06/24 01/02/25 Succinate ER] Midodrine HCl [ProAmantine] 2.5 mg PO TID PRN 12/06/24 01/02/25 Ondansetron [Ondansetron ODT] 4 mg SL Q6H PRN 12/06/24 01/01/25 Spironolactone [Aldactone] 25 mg PO DAILY 12/06/24 01/02/25 Tirzepatide [Mounjaro] 5 mg SQ Q7D 12/06/24 01/01/25 Previous Rx's Medication Instructions Recorded Famotidine [Pepcid] 20 mg PO DAILY #30 tab 07/13/24 Bumetanide [Bumex] 1 mg PO BID 30 Days #60 tablet 12/07/24 Allergies Allergy/AdvReac Type Severity Reaction Status Date / Time No Known Allergies Allergy Verified 01/09/25 21:22 Review of Systems ROS Statement: Those systems with pertinent positive or pertinent negative responses have been documented in the HPI. ROS Other: All systems not noted in ROS Statement are negative. Past Medical History Past Medical History: Coronary Artery Disease (CAD), Cancer, COPD, CVA/TIA, D iabetes Mellitus, GERD/Reflux, Hyperlipidemia, Hypertension, Myocardial Infarction (ME), Osteoarthritis (OA), Pneumonia, Seizure Disorder, Sleep Apnea/CPAP/BIPAP Additional Past Medical History / Comment(s): LAST SEIZURE ; lumbar radiculopathy; neuropathy; no CPAP needed per recent sleep study, hx. lung cancer, LLE edema, redness, no open areas Last Myocardial Infarction Date:: 10/22/10 History of Any Multi-Drug Resistant Organisms: None Reported Past Surgical History: Back Surgery, Cholecystectomy, Heart Catheterization With Stent Additional Past Surgical History / Comment(s): LAMINECTOMY ,fusion,spinal stimulator LEFT SHOULDER sx, 07-31-15 revison thoracic laminectomy t10- t11/removal of neuro stimulator and wires removed, fused L1&2 to a cage fusion that was previously put in to L3,4,5. May 27/2018. lobectomy of right middle lung Past Anesthesia/Blood Transfusion Reactions: No Reported Reaction Date of Last Stent Placement:: 10/22/10 Past Psychological History: Depression Smoking Status: Former smoker - Past Family History Brother(s) Family Medical History: Deep Vein Thrombosis (DVT) Additional Family Medical History / Comment(s): osteoporosis Mother Family Medical History: Dementia, Osteoarthritis (OA) Additional Family Medical History / Comment(s): psoriasis, Parkinsons Father Family Medical History: Coronary Artery Disease (CAD) Additional Family Medical History / Comment(s): heart problems- quad bypass General Exam - General Exam Comments Initial Comments: PHYSICAL EXAM: General Impression: Alert and oriented x3, not in acute distress HEENT: Normocephalic atraumatic, extra-ocular movements intact, pupils equal and reactive to light bilaterally, mucous membranes moist. Cardiovascular: Heart regular rate and rhythm Chest: Able to complete full sentences, no retractions, no tachypnea Abdomen: abdomen soft, non-tender, non-distended, no organomegaly Musculoskeletal: Pulses present and equal in all extremities, no peripheral edema Motor: no focal deficits noted Neurological: CN II-XII grossly intact, left-sided weakness Skin: Intact with no visualized rashes Psych: Normal affect and mood Course Vital Signs 01/09/25 01/09/25 01/09/25 21:18 21:30 23:14 Temperature 97.7 F Pulse Rate 85 75 72 Respiratory 18 18 17 Rate Blood Pressure 80/52 103/59 121/72 O2 Sat by Pulse 92 L 95 98 Oximetry EKG Findings - EKG Comments: EKG Findings:: My EKG interpretation: Ventricular rate 72, sinus rhythm, CT of 180, QRS 127, QTc 371. No CT prolongation, no QTC prolongation, no ST or T-wave changes noted. EKG compared to December 06, 2024 showing no changes. Overall, this EKG is unremarkable Medical Decision Making - Medical Decision Making Was pt. sent in by a medical professional or institution (, PA, CROSSCUTTER, urgent care, hospital, or shelter...) When possible be specific @ -No Did you speak to anyone other than the patient for history (EMS, parent, family, police, friend...)? What history was obtained from this source @ -No Did you review nursing and triage notes (agree or disagree)? Why? @ -I reviewed and agree with nursing and triage notes Were old charts reviewed (outside hosp., previous admission, EMS record, old EKG, old radiological studies, urgent care reports/EKG's, shelter records)? Report findings @ -No old charts were reviewed Differential Diagnosis (chest pain, altered mental status, abdominal pain women, abdominal pain men, vaginal bleeding, musculoskeletal, weakness, fever, dyspnea, syncope, headache, dizziness, GI bleed, back pain, seizure, CVA, palpatations, mental health)? @ -Differential Back Pain: Strain, zoster, cauda equina syndrome, epidural abscess, vertebral osteomyelitis, discitis, fracture, subluxation, disc herniation, DJD, spinal stenosis, dissection, AAA, pancreatitis, peptic ulcer disease, pyelonephritis, kidney stone, this is not meant to be an all-inclusive list. EKG interpreted by me (3pts min.). @ -See above X-rays interpreted by me (1pt min.). @ -None done CT interpreted by me (1pt min.). @ -CT brain and C-spine, CT chest abdomen pelvis shows no acute processes U/S interpreted by me (1pt. min.). @ -None done What testing was considered but not performed or refused? (CT, X-rays, U/S, labs)? Why? @ -None What meds were considered but not given or refused? Why? @ -None Was smoking cessation discussed for >3mins.? @ -No Were there social determinants of health that impacted care today? How? (Homelessness, low income, unemployed, alcoholism, drug addiction, transportation, low edu. Level, literacy, decrease access to med. care, [facility], rehab)? @ -No Was there de-escalation of care discussed even if they declined (Discuss DNR or withdrawal of care, Hospice)? DNR status @ -No What co-morbidities impacted this encounter? (DM, HTN, Smoking, COPD, CAD, Cancer, CVA, ARF, Chemo, Hep., AIDS, mental health diagnosis, sleep apnea, morbid obesity)? @ -History of CVA with residual weakness Was patient admitted / discharged? Hospital course, mention meds given and route, prescriptions, significant lab abnormalities, going to OR and other pertinent info. @ -59-year-old male presents with back strain. Vital signs are stable. EMS did report concern of cerebrovascular accident however patient states that he feels at baseline. Does have residual CVA symptoms to his left extremities. Laboratory evaluation obtained. Labs unremarkable. CT imaging is negative for any acute processes. Patient reevaluated bedside at 1:30 AM after given analgesics. Feels better. Patient agreeable for discharge. Advised follow-up with primary care doctor. Did you discuss the management of the patient with other professionals (professionals i.e. , PA, CROSSCUTTER, lab, RT, psych nurse, hospice social worker, charter coach driver, teacher, officer lieutenant, porter sample case)? Give summary @ -No Was critical care preformed (if so, how long)? @ -No Undiagnosed new problem with uncertain prognosis? @ -No Drug Therapy requiring intensive monitoring for toxicity (Heparin, Nitro, Insulin, Cardizem)? @ -No Were any procedures done? @ -No Diagnosis/symptom? Acute, or Chronic, or Acute on Chronic? Uncomplicated (without systemic symptoms) or Complicated (systemic symptoms)? @ -Back strain Side effects of treatment? @ -No Exacerbation, Progression, or Severe Exacerbation? @ -No Poses a threat to life or bodily function? How? (Chest pain, USA, ME, pneumonia, PE, COPD, DKA, ARF, appy, cholecystitis, CVA, Diverticulitis, Homicidal, Suicidal, threat to staff... and all critical care pts) @ -No - Lab Data Result diagrams: 01/09/25 21:24 01/09/25 21: Lab Results 01/09/25 01/09/25 01/09/25 Range/Units 21:24 21:24 21:24 WBC 6.88 (4.50-10.00) 10*3/uL RBC 4.13 L (4.40-5.60) 10*6/uL Hgb 11.8 L (13.0-17.0) g/dL Hct 36.4 L (39.6-50.0) % MCV 88.1 (80.0-97.0) fL MCH 28.6 (27.0-32.0) pg MCHC 32.4 (32.0-37.0) g/dL Plt Count 172 (140-440) 10*3/uL MPV 10.4 (9.5-12.2) fL Immature Gran % (Auto) 0.4 % Neutrophils % 61.1 % Lymphocytes % 27.5 % Monocytes % 7.4 % Eosinophils % 3.2 % Basophils % 0.4 % Immature Gran # 0.03 (0.00-0.04) 10*3/uL Neutrophils # 4.20 (1.80-7.70) 10*3/uL Lymphocytes # 1.89 (0.90-5.00) 10*3/uL Monocytes # 0.51 (0.20-1.00) 10*3/uL Eosinophils # 0.22 (0.04-0.35) 10*3/uL Basophils # 0.03 (0.00-0.10) 10*3/uL PT 9.9 L (10.0-12.5) sec INR 0.9 (<1.2) APTT 23.7 (22.0-30.0) sec Sodium 138 (137-145) mmol/L Potassium 3.9 (3.5-5.1) mmol/L Chloride 91 L (98-107) mmol/L Carbon Dioxide 37 H (22-30) mmol/L Anion Gap 10 mmol/L BUN 11 (9-20) mg/dL Creatinine 0.95 (0.66-1.25) mg/dL Est GFR (CKD-EPI)AfAm >90 (>60 ml/min/1.73 sqM) Est GFR (CKD-EPI)NonAf 87 (>60 ml/min/1.73 sqM) Glucose 131 H (74-99) mg/dL Plasma Lactic Acid Francois (0.7-2.0) mmol/L Calcium 9.0 (8.4-10.2) mg/dL Magnesium 1.9 (1.6-2.3) mg/dL Total Bilirubin 0.9 (0.2-1.3) mg/dL AST 26 (17-59) U/L ALT 23 (4-49) U/L Alkaline Phosphatase 85 (38-126) U/L Total Protein 6.6 (6.3-8.2) g/dL Albumin 4.1 (3.5-5.0) g/dL 01/09/25 Range/Units 21:24 WBC (4.50-10.00) 10*3/uL RBC (4.40-5.60) 10*6/uL Hgb (13.0-17.0) g/dL Hct (39.6-50.0) % MCV (80.0-97.0) fL MCH (27.0-32.0) pg MCHC (32.0-37.0) g/dL Plt Count (140-440) 10*3/uL MPV (9.5-12.2) fL Immature Gran % (Auto) % Neutrophils % % Lymphocytes % % Monocytes % % Eosinophils % % Basophils % % Immature Gran # (0.00-0.04) 10*3/uL Neutrophils # (1.80-7.70) 10*3/uL Lymphocytes # (0.90-5.00) 10*3/uL Monocytes # (0.20-1.00) 10*3/uL Eosinophils # (0.04-0.35) 10*3/uL Basophils # (0.00-0.10) 10*3/uL PT (10.0-12.5) sec INR (<1.2) APTT (22.0-30.0) sec Sodium (137-145) mmol/L Potassium (3.5-5.1) mmol/L Chloride (98-107) mmol/L Carbon Dioxide (22-30) mmol/L Anion Gap mmol/L BUN (9-20) mg/dL Creatinine (0.66-1.25) mg/dL Est GFR (CKD-EPI)AfAm (>60 ml/min/1.73 sqM) Est GFR (CKD-EPI)NonAf (>60 ml/min/1.73 sqM) Glucose (74-99) mg/dL Plasma Lactic Acid Francois 1.6 (0.7-2.0) mmol/L Calcium (8.4-10.2) mg/dL Magnesium (1.6-2.3) mg/dL Total Bilirubin (0.2-1.3) mg/dL AST (17-59) U/L ALT (4-49) U/L Alkaline Phosphatase (38-126) U/L Total Protein (6.3-8.2) g/dL Albumin (3.5-5.0) g/dL Disposition Clinical Impression: Back strain Disposition: HOME SELF-CARE Condition: Fair Instructions (If sedation given, give patient instructions): Acute Low Back Pain (ED) Is patient prescribed a controlled substance at d/c from ED?: No Referrals: Charles Thompson MD [Primary Care Provider] - 1-2 days Time of Disposition: 01:38
--- NOTE | 2025-01-10 00:11 | CT ---
EXAM: CT Head Without Intravenous Contrast CLINICAL HISTORY: ITS.REASON CT Reason: fall, thoracic and lumbar back pain TECHNIQUE: Axial computed tomography images of the head/brain without intravenous contrast. CTDI is 45.2 mGy and DLP is 1115 mGy-cm. This CT exam was performed using one or more of the following dose reduction techniques: automated exposure control, adjustment of the mA and/or kV according to patient size, and/or use of iterative reconstruction technique. COMPARISON: No relevant prior studies available. FINDINGS: Brain: Age-related cerebral volume loss. Periventricular and subcortical white matter hypoattenuation, consistent with chronic microangiopathy. No acute intracranial hemorrhage. No midline shift or mass effect. Ventricles: Unremarkable. No ventriculomegaly. Bones/joints: Unremarkable. No acute fracture. Soft tissues: Unremarkable. Sinuses: Unremarkable as visualized. No acute sinusitis. Mastoid air cells: Unremarkable as visualized. No mastoid effusion. IMPRESSION: No acute intracranial hemorrhage. No midline shift or mass effect. EXAM: CT Cervical Spine Without Intravenous Contrast CLINICAL HISTORY: ITS.REASON CT Reason: fall, thoracic and lumbar back pain TECHNIQUE: Axial computed tomography images of the cervical spine without intravenous contrast. CTDI is 22.1 mGy and DLP is 686.1 mGy-cm. This CT exam was performed using one or more of the following dose reduction techniques: automated exposure control, adjustment of the mA and/or kV according to patient size, and/or use of iterative reconstruction technique. COMPARISON: No relevant prior studies available. FINDINGS: The vertebral body heights are maintained. The craniocervical junction is intact. The atlanto-dens interval is maintained. The dens is intact. There is no spondylolisthesis. Multilevel cervical spondylosis and degenerative disc disease. Straightening of the cervical lordosis. The unenhanced neck soft tissues are grossly unremarkable. The visualized lung apices are grossly clear. IMPRESSION: No acute fracture or subluxation of the cervical spine.
[2025-01-10] MEDS: MORPHINE SULFATE 4 MG/ML SYRINGE IV STA (00:27)
--- NOTE | 2025-01-10 01:14 | CT ---
EXAM: CT Chest With Intravenous Contrast CLINICAL HISTORY: ITS.REASON CT Reason: fall, thoracic and lumbar back pain TECHNIQUE: Axial computed tomography images of the chest with intravenous contrast. CTDI is 34.9 mGy and DLP is 2992 mGy-cm. This CT exam was performed using one or more of the following dose reduction techniques: automated exposure control, adjustment of the mA and/or kV according to patient size, and/or use of iterative reconstruction technique. COMPARISON: No relevant prior studies available. FINDINGS: Lungs: Unremarkable. No mass. No consolidation. Pleural space: Unremarkable. No pneumothorax. No significant effusion. Heart: Unremarkable. No cardiomegaly. No significant pericardial effusion. No significant coronary artery calcifications. Bones/joints: Degenerative changes of the spine. Old nonunited posterior RIGHT seventh rib fracture. No dislocation. Soft tissues: Bilateral gynecomastia. Vasculature: Atherosclerotic changes of the aorta. No thoracic aortic aneurysm. Lymph nodes: Unremarkable. No enlarged lymph nodes. IMPRESSION: No acute findings in the chest. EXAM: CT Abdomen and Pelvis With Intravenous Contrast CLINICAL HISTORY: ITS.REASON CT Reason: fall, thoracic and lumbar back pain TECHNIQUE: Axial computed tomography images of the abdomen and pelvis with intravenous contrast. CTDI is 29.6 mGy and DLP is 1888 mGy-cm. This CT exam was performed using one or more of the following dose reduction techniques: automated exposure control, adjustment of the mA and/or kV according to patient size, and/or use of iterative reconstruction technique. COMPARISON: No relevant prior studies available. FINDINGS: Lung bases: Unremarkable. No mass. No consolidation. ABDOMEN: Liver: Unremarkable. No mass. Gallbladder and bile ducts: Cholecystectomy. No ductal dilation. Pancreas: Unremarkable. No mass. No ductal dilation. Spleen: Unremarkable. No splenomegaly. Adrenals: Unremarkable. No mass. Kidneys and ureters: Unremarkable. No solid mass. No hydronephrosis. Stomach and bowel: Diverticulosis, without acute diverticulitis. No small bowel obstruction. No free intraperitoneal air. PELVIS: Appendix: No findings to suggest acute appendicitis. Bladder: Unremarkable. No mass. Reproductive: Unremarkable as visualized. ABDOMEN and PELVIS: Intraperitoneal space: Unremarkable. No free air. No significant fluid collection. Bones/joints: Degenerative changes of the spine. Posterior fusion L3- L5. No acute fracture. No dislocation. Soft tissues: LEFT anterior subcutaneous generator device. Vasculature: Atherosclerotic changes of the aorta. No abdominal aortic aneurysm. Lymph nodes: Unremarkable. No enlarged lymph nodes. IMPRESSION: Diverticulosis, without acute diverticulitis. No small bowel obstruction. No free intraperitoneal air.
[2025-01-10 01:57] VITALS: BP 113/83; PULSE 80; RESP 18
== END 2025-01-10 02:08 | disposition home or self-care (01) ==
LOC: EC 21:16
DX: S39.012A Strain of muscle, fascia and tendon of lower back, initial encounter (principal); Z86.73 Personal history of transient ischemic attack (TIA), and cerebral infarction without residual deficits; Z87.891 Personal history of nicotine dependence; X58.XXXA Exposure to other specified factors, initial encounter
CPT/HCPCS: 36415; 93005; 80053; 83605; 83735; 85025; 85610; 85730; 72125; 70450; 71260; 74177; 99284; 96374; Q9967

== ENCOUNTER 2025-02-19 19:37 | Outpatient (CLI) | payer OTHER ==
--- NOTE | 2025-02-20 13:45 | P.PCN ---
Description of Procedure: POLYSOMNOGRAPHY REPORT PROCEDURE(S)/DATE(S): Polysomnography 02/19/2025 CLINICAL: Patient has been seen in the sleep center for evaluation of obstructive sleep apnea-hypopnea syndrome. Please see my consultation. Sleep study has been done for evaluation of patient breathing during the sleep. PROCEDURE: The standard montage for clinical polysomnography included the electroencephalogram, the electrooculogram, the mentalis surface electromyography and Lead II cardiography. The respiratory battery consisted of measurements of nasal/buccal air flow, pressure transducer measurements from nose, thoracic and/or abdominal effort and intercostal surface electromyography. Video monitoring has been done to check for any parasomnia events. Nocturnal oxyhemoglobin saturations were obtained by finger oximetry. Step-ordaz titration with positive airway pressure was utilized to control the respiratory events, if necessary. RESULTS: During the diagnostic sleep study sleep efficiency was in high range 97.0%. Latency to sleep onset was normal at 10.5 min. Sleep architecture showed stage NI was extremely short of 1.3%, Delta sleep was absent 0%, REM sleep was in normal high range 29.3%. Respiratory channel showed 123 obstructive apneas, 7 mixed apneas, 0 central apneas, 183 hypopneas with lowest oxygen level 62%. Total apnea hypopnea index was 48.2. Heart rate was in the range between 66 and 78, average 73. EMG showed 0 periodic limb movements per hour with 0 micro-arousals per hour. IMPRESSIONS: 1. Severe obstructive sleep apnea hypopnea syndrome. 2. No significant periodic limb movements have been documented. Please see other impressions from consultation PLAN: 1. The patient will have PAP titration for correction of respiratory abnormalities during the sleep. 2. Losing weight program. 3. Sleep hygiene with regular time in bed for at least 7-1/2 hours. 4. No driving if feeling sleepiness. Thank you very much for allowing me to participate in the management of your patient. Sincerely, Nicolas Menjivar MD, PhD, FAASM. Diplomat of [place] [employer], Sleep Medicine Board by [place] [employer] [facility] [place] cc: Charles Thompson MD
== END 2025-02-20 06:00 | disposition home or self-care (01) ==
LOC: 3 N SLEEP 19:37
PROVIDERS: ATTEND Internal Medicine
DX: G47.33 Obstructive sleep apnea (adult) (pediatric) (principal); F12.90 Cannabis use, unspecified, uncomplicated; Z87.891 Personal history of nicotine dependence
CPT/HCPCS: 95810

== ENCOUNTER 2025-02-20 06:05 | Emergency (ER) | payer MEDICARE, OTHER ==
[2025-02-20 06:31] LABS: Basophils # (A) 0.02 10*3/uL (0.00-0.10); Basophils % (A) 0.4 %; Eosinophils # (A) 0.15 10*3/uL (0.04-0.35); Eosinophils % (A) 3.1 %; HCT 36.7 % (39.6-50.0); HGB 11.8 g/dL (13.0-17.0); Lymphocytes # (A) 1.51 10*3/uL (0.90-5.00); Lymphocytes % (A) 31.4 %; MCH 29.1 pg (27.0-32.0); MCHC 32.2 g/dL (32.0-37.0); MCV 90.4 fL (80.0-97.0); Mean Platelet Volume 10.2 fL (9.5-12.2); Monocytes # (A) 0.37 10*3/uL (0.20-1.00); Monocytes % (A) 7.7 %; Neutrophils # (A) 2.75 10*3/uL (1.80-7.70); Neutrophils % (A) 57.2 %; Platelet Count 181 10*3/uL (140-440); RBC 4.06 10*6/uL (4.40-5.60); RDW 14.9 % (11.5-14.5); WBC 4.81 10*3/uL (4.50-10.00)
[2025-02-20] MEDS: levETIRAcetam IV 500 MG/5 ML VIAL IVP STA (06:31)
[2025-02-20] MEDS: SODIUM CHLORIDE 0.9% 500 ML 500 ML IV ONE (06:41)
[2025-02-20 06:44] LABS: ALT 18 U/L (4-49); African American GFR (CKD) >90 (>60 ml/min/1.73 sqM); Albumin 4.1 g/dL (3.5-5.0); Anion Gap 8 mmol/L; Blood Urea Nitrogen 11 mg/dL (9-20); Carbon Dioxide 35 mmol/L (22-30); Chloride 96 mmol/L (98-107); Glucose 167 mg/dL (74-99); Non-African American GFR(CKD) >90 (>60 ml/min/1.73 sqM); Sodium 139 mmol/L (137-145); Total Bilirubin 0.9 mg/dL (0.2-1.3); Total Protein 6.8 g/dL (6.3-8.2)
[2025-02-20 06:46] LABS: AST 31 U/L (17-59); Alkaline Phosphatase 68 U/L (38-126); Magnesium 2.2 mg/dL (1.6-2.3)
--- NOTE | 2025-02-20 06:46 | ED ---
Seizure HPI - General Chief Complaint: Seizure Stated Complaint: Seizure Time Seen by Provider: 02/20/25 06:10 Source: patient, RN notes reviewed Mode of arrival: wheelchair Limitations: no limitations - History of Present Illness Initial Comments: This is a 59-year-old male who presents to the emergency department for a seizure. Patient was leaving the hospital early this morning after an overnight sleep study. When he was in the elevator he had a tonic-clonic seizure. He was in his wheelchair at the time and did not sustain any injuries. He does have a history of seizures and takes Keppra 1500 mg twice daily. He did take his dose yesterday evening earlier than normal because of having to come to the hospital for his sleep study. He reports having prodromal symptoms before the seizure occurred. He most recently had a seizure a month ago and states that he tends to get them every couple of months if not more. Denies any chest pain, sh ortness of breath, headaches, nausea, or other complaints at this time. MD Complaint: seizure - Related Data Home Medications Medication Instructions Recorded Confirmed rOPINIRole HCL [Requip] 3 mg PO TID 05/30/19 01/02/25 Montelukast [Singulair] 10 mg PO HS 07/21/19 01/02/25 levETIRAcetam [Keppra] 1,500 mg PO BID 05/03/20 01/02/25 Atorvastatin [Lipitor] 80 mg PO HS 10/23/20 01/02/25 Clopidogrel [Plavix] 75 mg PO DAILY 12/06/22 01/02/25 DULoxetine HCL [Cymbalta] 30 mg PO HS 06/15/23 01/02/25 Ergocalciferol (Vitamin D2) 1,250 mcg PO ANDERSON 06/15/23 01/01/25 [Drisdol (50,000 Iu)] Insulin Aspart [NovoLOG Flexpen] 4 - 6 units SQ TID PRN 06/15/23 01/01/25 Insulin Glargine,Hum.rec.anlog 45 unit SQ BID 06/15/23 01/02/25 [Basaglar Kwikpen U-100] Empagliflozin [Jardiance] 10 mg PO DAILY 09/15/23 01/02/25 Meloxicam [Mobic] 15 mg PO DAILY 07/11/24 01/02/25 traZODone HCL 150 mg PO HS 07/11/24 01/02/25 Albuterol Inhaler [Ventolin Hfa 2 puff INHALATION RT-Q4H PRN 12/06/24 01/02/25 Inhaler] Amitriptyline HCl [Elavil] 50 mg PO HS 12/06/24 01/02/25 Gabapentin 600 mg PO QID 12/06/24 01/02/25 Linagliptin [Tradjenta] 5 mg PO DAILY 12/06/24 01/02/25 Metoprolol Succinate [Metoprolol 12.5 mg PO DAILY 12/06/24 01/02/25 Succinate ER] Midodrine HCl [ProAmantine] 2.5 mg PO TID PRN 12/06/24 01/02/25 Ondansetron [Ondansetron ODT] 4 mg SL Q6H PRN 12/06/24 01/01/25 Spironolactone [Aldactone] 25 mg PO DAILY 12/06/24 01/02/25 Tirzepatide [Mounjaro] 5 mg SQ Q7D 12/06/24 01/01/25 Previous Rx's Medication Instructions Recorded Famotidine [Pepcid] 20 mg PO DAILY #30 tab 07/13/24 Bumetanide [Bumex] 1 mg PO BID 30 Days #60 tablet 12/07/24 Allergies Allergy/AdvReac Type Severity Reaction Status Date / Time No Known Allergies Allergy Verified 02/20/25 06:12 Review of Systems ROS Statement: Those systems with pertinent positive or pertinent negative responses have been documented in the HPI. ROS Other: All systems not noted in ROS Statement are negative. Past Medical History Past Medical History: Coronary Artery Disease (CAD), Cancer, COPD, CVA/TIA, Diabetes Mellitus, GERD/Reflux, Hyperlipidemia, Hypertension, Myocardial Infarction (MD), Osteoarthritis (OA), Pneumonia, Seizure Disorder, Sleep Apnea/CPAP/BIPAP Additional Past Medical History / Comment(s): LAST SEIZURE ; lumbar radiculopathy; neuropathy; no CPAP needed per recent sleep study, hx. lung cancer, LLE edema, redness, no open areas Last Myocardial Infarction Date:: 10/22/10 History of Any Multi-Drug Resistant Organisms: None Reported Past Surgical History: Back Surgery, Cholecystectomy, Heart Catheterization With Stent Additional Past Surgical History / Comment(s): LAMINECTOMY ,fusion,spinal stimulator LEFT SHOULDER sx, 07-31-15 revison thoracic laminectomy t10- t11/removal of neuro stimulator and wires removed, fused L1&2 to a cage fusion that was previously put in to L3,4,5. May 27/2018. lobectomy of right middle lung Past Anesthesia/Blood Transfusion Reactions: No Reported Reaction Date of Last Stent Placement:: 10/22/10 Past Psychological History: Depression Smoking Status: Former smoker - Past Family History Brother(s) Family Medical History: Deep Vein Thrombosis (DVT) Additional Family Medical History / Comment(s): osteoporosis Mother Family Medical History: Dementia, Osteoarthritis (OA) Additional Family Medical History / Comment(s): psoriasis, Parkinsons Father Family Medical History: Coronary Artery Disease (CAD) Additional Family Medical History / Comment(s): heart problems- quad bypass General Exam Limitations: no limitations General appearance: alert, in no apparent distress Head exam: Present: atraumatic, normocephalic, normal inspection Respiratory exam: Present: normal lung sounds bilaterally. Absent: respiratory distress, wheezes, rales, rhonchi, stridor Cardiovascular Exam: Present: regular rate, normal rhythm Neurological exam: Present: alert, oriented X3, CN II-XII intact Psychiatric exam: Present: normal affect, normal mood Skin exam: Present: warm, dry, intact, normal color. Absent: rash Course Vital Signs 02/20/25 02/20/25 02/20/25 06:09 06:41 07:45 Temperature 97.6 F 97.8 F Pulse Rate 87 79 87 Respiratory 20 18 18 Rate Blood Pressure 146/82 131/90 106/79 O2 Sat by Pulse 98 97 96 Oximetry Medical Decision Making - Medical Decision Making This is a 59 year old male who presents to the emergency department for a seizu re. Was pt. sent in by a medical professional or institution? @ -No Did you speak to anyone other than the patient for history? @ -No Did you review nursing and triage notes? @ -Yes, and I agree, it is accurate with regards to the patient's symptoms. Were old charts reviewed? @ -No Differential Diagnosis? @ -Differential Seizure: Recurrent seizure disorder, febrile seizure, alcohol withdrawal, stimulants, meningitis, encephalitis, intercranial hemorrhage, intracranial tumor, stroke, eclampsia, thyrotoxicosis, hypocalcemia, hyponatremia, hypernatremia, hypo magnesemia, psychogenic, this is not meant to be an all-inclusive list. EKG interpreted by me (3pts min.)? @ -EKG interpreted by me demonstrating the following: Sinus rhythm. Ventricular rate 91 bpm, [place] interval 180 ms, QRS duration 104 ms, QTc 433 ms. X-rays interpreted by me (1pt min.)? @ -Not obtained CT interpreted by me (1pt min.)? @ -Not obtained U/S interpreted by me (1pt. min.)? @ -Not obtained What testing was considered but not performed? (CT, X-rays, U/S, labs)? Why? @ -None What meds were considered but not given? Why? @ -None Did you discuss the management of the patient with other professionals? @ -No Did you reconcile home meds? @ -No Was smoking cessation discussed for >3mins.? @ -No Was critical care preformed (if so, how long)? @ -No Were there social determinants of health that impacted care today? How? (Homelessness, low income, unemployed, alcoholism, drug addiction, transportation, low edu. Level, literacy, decrease access to med. care, fpc, rehab)? @ -No Was there de-escalation of care discussed even if they declined? (Discuss DNR or withdrawal of care, Hospice)? @ -No What co-morbidities impacted this encounter? (DM, HTN, Smoking, COPD, CAD, Cancer, CVA, Hep., AIDS, mental health diagnosis, sleep apnea, morbid obesity)? @ -DM, seizure disorder, LISA Was patient admitted / discharged? @ -Discharged. Lab work unremarkable. Patient had a tonic-clonic seizure in the elevator following a sleep study this morning. Patient reports a history of seizures. He did have to slightly adjust his medication schedule for the sleep study, which could have been a contributing component to this. He was given his morning dose of Keppra, 1500 mg in the emergency department. He remained A&O x 4, asymptomatic, and seizure-free in the emergency department. Patient discharged home in stable condition and advised to follow-up with his PCP and neurologist. Case discussed with ED attending, Dr. Pressley. Return precautions reviewed in depth, the patient is instructed to return to the emergency department with any new, worsening, or concerning symptoms. Patient verbalized understanding. Undiagnosed new problem with uncertain prognosis? @ -None Drug Therapy requiring intensive monitoring for toxicity (Heparin, Nitro, Insulin, Cardizem)? @ -None Were any procedures done? @ -None Diagnosis/symptom? @ -Generalized seizure Acute, or Chronic, or Acute on Chronic? @ -Acute Uncomplicated (without systemic symptoms) or Complicated (systemic symptoms)? @ -Uncomplicated Side effects of treatment? @ -None Exacerbation, Progression, or Severe Exacerbation] @ -Not applicable Poses a threat to life or bodily function? @ -No - Lab Data Result diagrams: 02/20/25 06:18 02/20/25 06:18 Lab Results 02/20/25 02/20/25 Range/Units 06:18 06:18 WBC 4.81 (4.50-10.00) 10*3/uL RBC 4.06 L (4.40-5.60) 10*6/uL Hgb 11.8 L (13.0-17.0) g/dL Hct 36.7 L (39.6-50.0) % MCV 90.4 (80.0-97.0) fL MCH 29.1 (27.0-32.0) pg MCHC 32.2 (32.0-37.0) g/dL Plt Count 181 (140-440) 10*3/uL MPV 10.2 (9.5-12.2) fL Immature Gran % (Auto) 0.2 % Neutrophils % 57.2 % Lymphocytes % 31.4 % Monocytes % 7.7 % Eosinophils % 3.1 % Basophils % 0.4 % Immature Gran # 0.01 (0.00-0.04) 10*3/uL Neutrophils # 2.75 (1.80-7.70) 10*3/uL Lymphocytes # 1.51 (0.90-5.00) 10*3/uL Monocytes # 0.37 (0.20-1.00) 10*3/uL Eosinophils # 0.15 (0.04-0.35) 10*3/uL Basophils # 0.02 (0.00-0.10) 10*3/uL Sodium 139 (137-145) mmol/L Potassium 4.0 (3.5-5.1) mmol/L Chloride 96 L (98-107) mmol/L Carbon Dioxide 35 H (22-30) mmol/L Anion Gap 8 mmol/L BUN 11 (9-20) mg/dL Creatinine 0.84 (0.66-1.25) mg/dL Est GFR (CKD-EPI)AfAm >90 (>60 ml/min/1.73 sqM) Est GFR (CKD-EPI)NonAf >90 (>60 ml/min/1.73 sqM) Glucose 167 H (74-99) mg/dL Calcium 9.0 (8.4-10.2) mg/dL Magnesium 2.2 (1.6-2.3) mg/dL Total Bilirubin 0.9 (0.2-1.3) mg/dL AST 31 (17-59) U/L ALT 18 (4-49) U/L Alkaline Phosphatase 68 (38-126) U/L Total Protein 6.8 (6.3-8.2) g/dL Albumin 4.1 (3.5-5.0) g/dL Disposition Clinical Impression: Generalized seizure Disposition: HOME SELF-CARE Instructions (If sedation given, give patient instructions): Seizure/Epilepsy Discharge Instructions & Follow-Up, Recurrent Seizures in Adults (ED) Additional Instructions: Return to the emergency department with any new, worsening, or concerning symptoms. Continue to take your Keppra as prescribed. Follow up with your primary care provider in 1-2 days. Is patient prescribed a controlled substance at d/c from ED?: No Referrals: Nicolas Menjivar MD [Primary Care Provider] - 1-2 days Time of Disposition: 07:27
[2025-02-20 07:02] VITALS: RESP 18
[2025-02-20 07:46] VITALS: BP 106/79; PULSE 87; TEMP 97.8
== END 2025-02-20 07:50 | disposition home or self-care (01) ==
LOC: EC 06:05
DX: G40.409 Other generalized epilepsy and epileptic syndromes, not intractable, without status epilepticus (principal); E11.9 Type 2 diabetes mellitus without complications; G47.33 Obstructive sleep apnea (adult) (pediatric); Z87.891 Personal history of nicotine dependence
CPT/HCPCS: 36415; 93005; 80053; 83735; 85025; 99284; 96374; 96361; J1953

== ENCOUNTER 2025-03-02 12:39 | Emergency (ER) | payer OTHER ==
[2025-03-02 12:59] VITALS: TEMP 97.9
[2025-03-02 13:06] LABS: Appearance,Urine Clear (Clear); Bilirubin,Urine Negative (Negative); Blood,Urine Negative (Negative); Color,Urine Colorless; Glucose,Urine (UA) 4+ (Negative); Ketones,Urine Negative (Negative); Leukocyte Esterase,Urine Negative (Negative); Nitrite,Urine Negative (Negative); Protein,Urine Negative (Negative); Specific Gravity,Urine 1.016 (1.001-1.035); Urobilinogen,Urine <2.0 mg/dL (<2.0)
--- NOTE | 2025-03-02 13:07 | ED ---
Male Urogenital HPI - General Source: patient, RN notes reviewed Mode of arrival: ambulatory Limitations: no limitations <Deb Tan - Last Filed: 03/02/25 13:08> <Sukhjinder Pressley - Last Filed: 03/02/25 16:42> - General Chief complaint: Urogenital Stated complaint: Groin Pain Time Seen by Provider: 03/02/25 12:55 - History of Present Illness Initial comments: 59-year-old male presenting to emergency room with complaints of groin pain over the past week. Patient denies fevers, chills, nausea, vomiting, urinary complaints. (Deb Tan) This is a 59-year-old male who presents to the emergency department complaining of right groin pain. Patient states pain started on Wednesday. Patient states he did recently slept so could have been a muscle pull but he wants to make sure that is not something else. Patient denies any redness drainage or rash in the area. Patient states it hurts when he moves his leg if he sits in a chair and leans forward he feels much better. Patient denies any abdominal pain patient has back pain. Patient Nuys dysuria hematuria urinary frequency. Patient Nuys any fever chills. Patient has nausea vomiting or diarrhea. (Sukhjinder Pressley) - Related Data Home Medications Medication Instructions Recorded Confirmed rOPINIRole HCL [Requip] 3 mg PO TID 05/30/19 01/02/25 Montelukast [Singulair] 10 mg PO HS 07/21/19 01/02/25 levETIRAcetam [Keppra] 1,500 mg PO BID 05/03/20 01/02/25 Atorvastatin [Lipitor] 80 mg PO HS 10/23/20 01/02/25 Clopidogrel [Plavix] 75 mg PO DAILY 12/06/22 01/02/25 DULoxetine HCL [Cymbalta] 30 mg PO HS 06/15/23 01/02/25 Ergocalciferol (Vitamin D2) 1,250 mcg PO ANDERSON 06/15/23 01/01/25 [Drisdol (50,000 Iu)] Insulin Aspart [NovoLOG Flexpen] 4 - 6 units SQ TID PRN 06/15/23 01/01/25 Insulin Glargine,Hum.rec.anlog 45 unit SQ BID 06/15/23 01/02/25 [Basaglscott Wolfpen U-100] Empagliflozin [Jardiance] 10 mg PO DAILY 09/15/23 01/02/25 Meloxicam [Mobic] 15 mg PO DAILY 07/11/24 01/02/25 traZODone HCL 150 mg PO HS 07/11/24 01/02/25 Albuterol Inhaler [Ventolin Hfa 2 puff INHALATION RT-Q4H PRN 12/06/24 01/02/25 Inhaler] Amitriptyline HCl [Elavil] 50 mg PO HS 12/06/24 01/02/25 Gabapentin 600 mg PO QID 12/06/24 01/02/25 Linagliptin [Tradjenta] 5 mg PO DAILY 12/06/24 01/02/25 Metoprolol Succinate [Metoprolol 12.5 mg PO DAILY 12/06/24 01/02/25 Succinate ER] Midodrine HCl [ProAmantine] 2.5 mg PO TID PRN 12/06/24 01/02/25 Ondansetron [Ondansetron ODT] 4 mg SL Q6H PRN 12/06/24 01/01/25 Spironolactone [Aldactone] 25 mg PO DAILY 12/06/24 01/02/25 Tirzepatide [Mounjaro] 5 mg SQ Q7D 12/06/24 01/01/25 Previous Rx's Medication Instructions Recorded Famotidine [Pepcid] 20 mg PO DAILY #30 tab 07/13/24 Bumetanide [Bumex] 1 mg PO BID 30 Days #60 tablet 12/07/24 Allergies Allergy/AdvReac Type Severity Reaction Status Date / Time No Known Allergies Allergy Verified 03/02/25 12:59 Review of Systems ROS Other: All systems not noted in ROS Statement are negative. <Deb Tan - Last Filed: 03/02/25 13:08> ROS Other: All systems not noted in ROS Statement are negative. <Sukhjinder Pressley - Last Filed: 03/02/25 16:42> ROS Statement: Those systems with pertinent positive or pertinent negative responses have been documented in the HPI. Past Medical History Past Medical History: Coronary Artery Disease (CAD), Cancer, COPD, CVA/TIA, Diabetes Mellitus, GERD/Reflux, Hyperlipidemia, Hypertension, Myocardial Infarction (OK), Osteoarthritis (OA), Pneumonia, Seizure Disorder, Sleep Apnea/CPAP/BIPAP Additional Past Medical History / Comment(s): LAST SEIZURE ; lumbar radiculopathy; neuropathy; no CPAP needed per recent sleep study, hx. lung cancer, LLE edema, redness, no open areas Last Myocardial Infarction Date:: 10/22/10 History of Any Multi-Drug Resistant Organisms: None Reported Past Surgical History: Back Surgery, Cholecystectomy, Heart Catheterization With Stent Additional Past Surgical History / Comment(s): LAMINECTOMY ,fusion,spinal stimulator LEFT SHOULDER sx, 07-31-15 revison thoracic laminectomy t10- t11/removal of neuro stimulator and wires removed, fused L1&2 to a cage fusion that was previously put in to L3,4,5. May 27/2018. lobectomy of right middle lung Past Anesthesia/Blood Transfusion Reactions: No Reported Reaction Date of Last Stent Placement:: 10/22/10 Past Psychological History: Depression Smoking Status: Former smoker Past Alcohol Use History: None Reported Past Drug Use History: None Reported - Past Family History Brother(s) Family Medical History: Deep Vein Thrombosis (DVT) Additional Family Medical History / Comment(s): osteoporosis Mother Family Medical History: Dementia, Osteoarthritis (OA) Additional Family Medical History / Comment(s): psoriasis, Parkinsons Father Family Medical History: Coronary Artery Disease (CAD) Additional Family Medical History / Comment(s): heart problems- quad bypass <Deb Tan - Last Filed: 03/02/25 13:08> General Exam Limitations: no limitations <Deb Tan - Last Filed: 03/02/25 13:08> <Sukhjinder Pressley - Last Filed: 03/02/25 16:42> - General Exam Comments Initial Comments: Visual Physical Exam Vital signs reviewed General: Well-appearing, nontoxic, no acute distress. Head: Normocephalic, atraumatic Eyes: PERRLA, EOMI ENT: Airway patent Chest: Nonlabored breathing Skin: No visual rash, normal skin tone Neuro: Alert and oriented 3 Musculoskeletal: No gross abnormalities (Deb Tan) GENERAL: Patient is well-developed and well-nourished. Patient is nontoxic and well- hydrated and is in mild distress. ENT: Neck is soft and supple. No significant lymphadenopathy is noted. Oropharynx is clear. Moist mucous membranes. Neck has full range of motion without eliciting any pain. EYES: The sclera were anicteric and conjunctiva were pink and moist. Extraocular movements were intact and pupils were equal round and reactive to light. Eyelids were unremarkable. PULMONARY: Unlabored respirations. Good breath sounds bilaterally. No audible rales rhonchi or wheezing was noted. CARDIOVASCULAR: There is a regular rate and rhythm without any murmurs gallops or rubs. ABDOMEN: Soft and nontender with normal bowel sounds. Groin shows no rash no lesion no swelling no mass. Patient has no hernia. SKIN: Skin is clear with no lesions or rashes and otherwise unremarkable. NEUROLOGIC: Patient is alert and oriented x3. Cranial nerves II through XII are grossly intact. Motor and sensory are also intact. Normal speech, volume and content. Symmetrical smile. MUSCULOSKELETAL: Normal extremities with adequate strength and full range of motion. LYMPHATICS: No significant lymphadenopathy is noted PSYCHIATRIC: Normal psychiatric evaluation. (Sukhjinder Pressley) Course Vital Signs 03/02/25 12:57 Temperature 97.9 F Pulse Rate 82 Respiratory 22 Rate Blood Pressure 132/80 O2 Sat by Pulse 98 Oximetry Medical Decision Making <Deb Tan - Last Filed: 03/02/25 13:08> - Lab Data Result diagrams: 03/02/25 15:28 03/02/25 15:28 <Sukhjinder Pressley - Last Filed: 03/02/25 16:42> - Medical Decision Making I completed the quick note portion of this chart signed Deb Tan PA-C (Deb Tan) Was pt. sent in by a medical professional or institution ([facility] Miller, MOVIE PROJECTIONIST, urgent care, hospital, or retirement...) When possible be specific @ -No Did you speak to anyone other than the patient for history (EMS, parent, family, police, friend...)? What history was obtained from this source @ -No Did you review nursing and triage notes (agree or disagree)? Why? @ -I reviewed and agree with nursing and triage notes Were old charts reviewed (outside hosp., previous admission, EMS record, old EKG, old radiological studies, urgent care reports/EKG's, retirement records)? Report findings @ -No old charts were reviewed Differential Diagnosis? @ -Differential Abdominal Pain Men: Appendicitis, cholecystitis, diverticulosis, ischemic bowel, pancreatitis, hepatitis, UTI, gastroenteritis, AAA, incarcerated hernia, bowel obstruction, constipation, inflammatory bowel, hepatitis, peptic ulcer disease, splenic infarction, perforated viscus, testicular torsion, this is not meant to be an all-inclusive list EKG interpreted by me (3pts min.). @ -As above X-rays interpreted by me (1pt min.). @ -None done CT interpreted by me (1pt min.). @ -None done U/S interpreted by me (1pt. min.). @ -None done What testing was considered but not performed or refused? (CT, X-rays, U/S, labs)? Why? @ -None What meds were considered but not given or refused? Why? @ -None Did you discuss the management of the patient with other professionals (professionals i.e. , PA, MOVIE PROJECTIONIST, lab, RT, psych nurse, social and human services assistant, test and turn up technician, teacher, credit products officer, case management rn)? Give summary @ -No Was smoking cessation discussed for >3mins.? @ -No Was critical care preformed (if so, how long)? @ -No Were there social determinants of health that impacted care today? How? (Homelessness, low income, unemployed, alcoholism, drug addiction, transportation, low edu. Level, literacy, decrease access to med. care, assisted, rehab)? @ -No Was there de-escalation of care discussed even if they declined (Discuss DNR or withdrawal of care, Hospice)? DNR status @ -No What co-morbidities impacted this encounter? (DM, HTN, Smoking, COPD, CAD, Cancer, CVA, ARF, Chemo, Hep., AIDS, mental health diagnosis, sleep apnea, morbid obesity)? @ -None Was patient admitted / discharged? Hospital course, mention meds given and route, prescriptions, significant lab abnormalities, going to OR and other pertinent info. @ -After examining the patient there was no hernia there was no rash there is no lesion there was no mass there was no lymphadenopathy. Pain could be redemonstrated with movement of the right leg. Patient denies any recent fall and lab work was all normal so patient will follow-up with his primary medical care doctor. Patient did receive Toradol and Dilaudid in the department and felt considerably better Undiagnosed new problem with uncertain prognosis? @ -No Drug Therapy requiring intensive monitoring for toxicity (Heparin, Nitro, Insulin, Cardizem)? @ -No Were any procedures done? @ -No Diagnosis/symptom? @ -Groin strain Acute, or Chronic, or Acute on Chronic? @ -Acute Uncomplicated (without systemic symptoms) or Complicated (systemic symptoms)? @ -Uncomplicated Side effects of treatment? @ -No Exacerbation, Progression, or Severe Exacerbation? @ -No Poses a threat to life or bodily function? How? (Chest pain, USA, OK, pneumonia, PE, COPD, DKA, ARF, appy, cholecystitis, CVA, Diverticulitis, Homicidal, Suicidal, threat to staff... and all critical care pts) @ -No (Sukhjinder Pressley) - Lab Data Lab Results 03/02/25 03/02/25 03/02/25 Range/Units 13:00 15:28 15:28 WBC 7.31 (4.50-10.00) 10*3/uL RBC 3.91 L (4.40-5.60) 10*6/uL Hgb 11.6 L (13.0-17.0) g/dL Hct 35.1 L (39.6-50.0) % MCV 89.8 (80.0-97.0) fL MCH 29.7 (27.0-32.0) pg MCHC 33.0 (32.0-37.0) g/dL Plt Count 186 (140-440) 10*3/uL MPV 10.3 (9.5-12.2) fL Immature Gran % (Auto) 0.4 % Neutrophils % 66.4 % Lymphocytes % 20.9 % Monocytes % 8.5 % Eosinophils % 3.1 % Basophils % 0.7 % Immature Gran # 0.03 (0.00-0.04) 10*3/uL Neutrophils # 4.85 (1.80-7.70) 10*3/uL Lymphocytes # 1.53 (0.90-5.00) 10*3/uL Monocytes # 0.62 (0.20-1.00) 10*3/uL Eosinophils # 0.23 (0.04-0.35) 10*3/uL Basophils # 0.05 (0.00-0.10) 10*3/uL Sodium 140 (137-145) mmol/L Potassium 4.2 (3.5-5.1) mmol/L Chloride 96 L (98-107) mmol/L Carbon Dioxide 34 H (22-30) mmol/L Anion Gap 10 mmol/L BUN 8 L (9-20) mg/dL Creatinine 0.85 (0.66-1.25) mg/dL Est GFR (CKD-EPI)AfAm >90 (>60 ml/min/1.73 sqM) Est GFR (CKD-EPI)NonAf >90 (>60 ml/min/1.73 sqM) Glucose 102 H (74-99) mg/dL Calcium 9.3 (8.4-10.2) mg/dL Total Bilirubin 0.8 (0.2-1.3) mg/dL AST 22 (17-59) U/L ALT 16 (4-49) U/L Alkaline Phosphatase 79 (38-126) U/L Total Protein 6.7 (6.3-8.2) g/dL Albumin 4.2 (3.5-5.0) g/dL Urine Color Colorless Urine Appearance Clear (Clear) Urine pH 5.0 (5.0-8.0) Ur Specific [place] 1.016 (1.001-1.035) Urine Protein Negative (Negative) Urine Glucose (UA) 4+ H (Negative) Urine Ketones Negative (Negative) Urine Blood Negative (Negative) Urine Nitrite Negative (Negative) Urine Bilirubin Negative (Negative) Urine Urobilinogen <2.0 (<2.0) mg/dL Ur Leukocyte Esterase Negative (Negative) Disposition <Deb Tan - Last Filed: 03/02/25 13:08> Is patient prescribed a controlled substance at d/c from ED?: No Time of Disposition: 16:42 <Sukhjinder Pressley - Last Filed: 03/02/25 16:42> Clinical Impression: Strain of groin Disposition: HOME SELF-CARE Instructions (If sedation given, give patient instructions): Groin Strain (ED) Additional Instructions: Patient is to take Motrin and Tylenol as needed for pain Referrals: Nicolas Menjivar MD [Primary Care Provider] - 1-2 days
--- NOTE | 2025-03-02 14:07 | US ---
EXAMINATION TYPE: US scrotum with doppler. DATE OF EXAM: 03/02/2025 COMPARISON: NONE CLINICAL INDICATION: Male, 59 years old with history of testicular pain; Right testicular pain x 5 da ys TECHNIQUE: Grayscale, color Doppler and spectral Doppler imaging of the scrotum. FINDINGS: EXAM MEASUREMENTS: TESTICLES: Right Testicle: 4.2 x 2.7 x 2.9 cm Left Testicle: 4.0 x 2.2 x 2.1 cm EPIDIDYMIS HEAD: Right Epididymis: 1.8 x 0.7 x 1.0 cm Left Epididymis: 1.2 x 0.7 x 1.3 cm Cystic area noted within left epi head: 0.4 x 0.5 x 0.5cm Doppler performed to assess for testicular vascularity; good bilateral color flow and spectral wavefo aden are seen. There is no evidence of testicular torsion. Presence of hydroceles: no Presence of varicoceles: Slight vessel dilation noted right groin Limited exam due to patient body habitus, inability to lie down, and unable to tolerate probe pressur e. IMPRESSION: No discrete mass is evident. There is a spermatocele or epididymal cyst in the left epididymis. Leila l vascular flow is present without evidence of torsion [facility], , 03/02/2025 2:04 PM
[2025-03-02 15:42] LABS: Basophils # (A) 0.05 10*3/uL (0.00-0.10); Basophils % (A) 0.7 %; Eosinophils # (A) 0.23 10*3/uL (0.04-0.35); Eosinophils % (A) 3.1 %; HCT 35.1 % (39.6-50.0); HGB 11.6 g/dL (13.0-17.0); Lymphocytes # (A) 1.53 10*3/uL (0.90-5.00); Lymphocytes % (A) 20.9 %; MCH 29.7 pg (27.0-32.0); MCV 89.8 fL (80.0-97.0); Mean Platelet Volume 10.3 fL (9.5-12.2); Monocytes # (A) 0.62 10*3/uL (0.20-1.00); Monocytes % (A) 8.5 %; Neutrophils # (A) 4.85 10*3/uL (1.80-7.70); Neutrophils % (A) 66.4 %; Platelet Count 186 10*3/uL (140-440); RBC 3.91 10*6/uL (4.40-5.60); RDW 14.7 % (11.5-14.5); WBC 7.31 10*3/uL (4.50-10.00)
[2025-03-02 15:52] LABS: ALT 16 U/L (4-49); AST 22 U/L (17-59); African American GFR (CKD) >90 (>60 ml/min/1.73 sqM); Albumin 4.2 g/dL (3.5-5.0); Alkaline Phosphatase 79 U/L (38-126); Anion Gap 10 mmol/L; Blood Urea Nitrogen 8 mg/dL (9-20); Calcium 9.3 mg/dL (8.4-10.2); Carbon Dioxide 34 mmol/L (22-30); Chloride 96 mmol/L (98-107); Glucose 102 mg/dL (74-99); Non-African American GFR(CKD) >90 (>60 ml/min/1.73 sqM); Potassium 4.2 mmol/L (3.5-5.1); Sodium 140 mmol/L (137-145); Total Bilirubin 0.8 mg/dL (0.2-1.3); Total Protein 6.7 g/dL (6.3-8.2)
[2025-03-02] MEDS: HYDROmorphone 0.5 MG/0.5 ML SYRINGE IVP STA (16:22)
[2025-03-02] MEDS: KETOROLAC 15 MG/ML 1 ML VIAL IVP STA (16:23)
[2025-03-02 16:41] VITALS: BP 114/68; PULSE 87; RESP 17
== END 2025-03-02 17:08 | disposition home or self-care (01) ==
LOC: EC 12:39
DX: S39.011A Strain of muscle, fascia and tendon of abdomen, initial encounter (principal); Z87.891 Personal history of nicotine dependence; Z86.73 Personal history of transient ischemic attack (TIA), and cerebral infarction without residual deficits; X58.XXXA Exposure to other specified factors, initial encounter
CPT/HCPCS: 36415; 80053; 85025; 81003; 93975; 76870; 99284; 96374; 96375; J1885; J1171